=== PATIENT | female | born 1935 | race Caucasian/White ===

== ENCOUNTER → 2018-06-04 14:10 | Outpatient (CLI) | payer MEDICARE, OTHER, SELFPAY ==
--- NOTE | 2018-06-04 14:11 | DI.MG.S_ITS ---
BILATERAL DIGITAL SCREENING MAMMOGRAM 3D/2D WITH CAD: 06/04/2018 CLINICAL: Routine screening. Personal history of breast cancer. Family history of breast cancer. Comparison is made to exams dated: 07/19/2017 mammogram - [facility], 04/25/2017 mammogram, and 04/25/2016 mammogram - [facility]. There are scattered fibroglandular elements in both breasts. Current study was also evaluated with a Computer Aided Detection (CAD) system. No significant masses, calcifications, or other findings are seen in either breast. There has been no significant interval change. IMPRESSION: NEGATIVE There is no mammographic evidence of malignancy. A 1 year screening mammogram is recommended. This exam was interpreted at Station ID: [id number]. NOTE: For mammograms, a report in lay terms will be sent to the patient. Approximately 15% of breast malignancies will not be visualized mammographically. In the management of a palpable breast mass, a negative mammogram must not discourage biopsy of a clinically suspicious lesion. Electronically Signed By: Godwin flores/minh:06/04/2018 17:07:32 copy to: Felecia Sesay letter sent: Normal Exam ACR BI-RADS Category 1: Negative 3341F
== END ==
PROVIDERS: Family Provider Family Medicine; PCP Family Medicine; Visit Provider Family Medicine
DX: Z12.31 Encounter for screening mammogram for malignant neoplasm of breast (principal); Z85.3 Personal history of malignant neoplasm of breast; Z80.3 Family history of malignant neoplasm of breast
CPT/HCPCS: 77063; 77067

== ENCOUNTER → 2018-07-27 12:39 | Outpatient (CLI) | payer MEDICARE, OTHER, SELFPAY ==
--- NOTE | 2018-07-27 | DI.CT.S_ITS ---
PROCEDURE: CT UE LT WO CON INDICATIONS: LEFT SHOULDER PAIN/MATCH POINT PROTOCOL TECHNIQUE: Noncontrast 1-1.5 mm thick sections acquired from the acromioclavicular joint to the inferior scapula, with coronal and sagittal reformatting. COMPARISON: None. FINDINGS: Image quality: Excellent. Bones: Severe glenohumeral joint osteoarthritis is to be with incomplete soft joint space, extensive subchondral sclerosis and cyst formation, as well as prominent inferior marginal osteophyte formation. Moderate acromioclavicular joint osteoarthritis is also seen. There is no shoulder fracture or dislocation. No suspicious bony lesions. The visualized left ribs are grossly intact. Soft tissues: There is no suspicious soft tissue lesion. No gross full-thickness rotator cuff tendon rupture. Small glenohumeral joint effusion is seen. Visualized left lung field is clear. 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 No fracture or dislocation. No suspicious bony lesion or soft tissue lesion. Small joint effusion. No gross full-thickness rotator cuff tendon rupture. Dictated by: Tree Gibbs M.D. on 07/27/2018 at 13:39 Approved by: Tree Gibbs M.D. on 07/27/2018 at 13:42
--- NOTE | 2018-07-27 15:26 | DI.RAD.S_ITS ---
PROCEDURE: XR CHEST 2V INDICATIONS: Wheezing TECHNIQUE: 2 views of the chest were acquired. COMPARISON: [facility], , CHEST 2 VIEW, 04/13/2016, 11:34. FINDINGS: Surgical changes and devices: None. Lungs and pleura: No pleural effusions or pneumothorax. Streaky retrocardiac and bibasilar atelectasis/scarring. No acute consolidation Mediastinum: Mediastinal contours are normal. Heart size is normal. Bones and chest wall: No suspicious bony abnormalities. Lateral curvature of the spine Soft tissues appear unremarkable. IMPRESSION: No acute disease. Bibasilar streaky retrocardiac atelectasis versus scarring. Dictated by: Sea Guardado M.D. on 07/27/2018 at 16:07 Approved by: Sea Guardado M.D. on 07/27/2018 at 16:09
== END ==
PROVIDERS: Family Provider Family Medicine; Visit Provider Orthopaedic Surgery
DX: M25.512 Pain in left shoulder (principal); R06.2 Wheezing; R06.02 Shortness of breath; M19.011 Primary osteoarthritis, right shoulder; M25.412 Effusion, left shoulder
CPT/HCPCS: 71046; 73200

== ENCOUNTER → 2018-08-07 11:47 | Outpatient (CLI) | payer MEDICARE, OTHER, SELFPAY ==
[2018-08-07 12:13] LABS: Add Manual Diff / Slide Review NO; Basophils Percent Auto 0.7 % (0-2); Eosinophils Percent Auto 3.4 % (2-4); Hematocrit 40.6 % (36-46); Hemoglobin 13.9 g/dL (12.0-16.0); Lymphocytes Percent Auto 11.2 % (25-40); Mean Corpuscular HGB Conc 34.2 % (30-36); Mean Corpuscular Hemoglobin 28.9 PG (26-34); Mean Corpuscular Volume 84.6 fL (80-100); Neutrophils Absolute Auto 7600 /uL (3000-5900); Neutrophils Percent Auto 76.7 % (50-75); Platelet Count 299 X10^3/uL (150-400); Red Cell Distribution Width 13.6 % (11.6-14.8); White Blood Cell Count 9.9 X10^3/uL (4.5-11.0)
[2018-08-07 12:53] LABS: Alanine Aminotransferase 42 IU/L (9-52); Albumin 4.5 g/dL (3.5-5.0); Albumin Globulin Ratio 1.7 (1.0-2.8); Alkaline Phosphatase 63 U/L (38-126); Aspartate Aminotransferase 28 IU/L (14-36); BUN Creatinine Ratio 18.6 (6-22); Bilirubin Total 0.7 mg/dL (0.2-1.3); Blood Urea Nitrogen 13 mg/dL (7-17); Calcium 9.7 mg/dL (8.4-10.2); Carbon Dioxide 28 mmol/L (22-32); Chloride 99 mmol/L (98-107); Cholesterol 190 mg/dL (140-199); Estimated Glomerular Filt Rate > 60.0 mL/min (>60); Globulin 2.6 g/dL (1.7-4.1); Glucose 95 mg/dL (80-110); HDL Cholesterol 64 mg/dL (40-60); HEMOLYSIS 26 (0-50); LDL Cholesterol Calculated 97 mg/dL (<100); Potassium 4.5 mmol/L (3.4-5.1); Sodium 139 mmol/L (137-145); Total Protein 7.1 g/dL (6.3-8.2); Triglycerides 146 mg/dL (35-150)
[2018-08-13 16:26] LABS: TSH w/ Reflex to FT4 2.79 uIU/mL (0.47-4.68)
== END ==
PROVIDERS: PCP Family Medicine; Visit Provider Family Medicine
DX: Z79.899 Other long term (current) drug therapy (principal)
CPT/HCPCS: 36415; 80053; 80061; 84443; 85025

== ENCOUNTER → 2018-08-10 13:16 | Outpatient (CLI) | payer MEDICARE, OTHER, SELFPAY ==
--- NOTE | 2018-08-10 13:19 | DI.RAD.S_ITS ---
PROCEDURE: XR CHEST 2V INDICATIONS: Cough TECHNIQUE: 2 views of the chest were acquired. COMPARISON: [facility], CR, XR CHEST 2V, 07/27/2018, 15:04. FINDINGS: Surgical changes and devices: None. Lungs and pleura: No pleural effusions or pneumothorax. Lungs are clear. Mediastinum: Mediastinal contours are normal. Heart size is normal. Bones and chest wall: No suspicious bony abnormalities. Soft tissues appear unremarkable. IMPRESSION: No acute cardiopulmonary pathology. Dictated by: Tree Gibbs M.D. on 08/10/2018 at 13:51 Approved by: Tree Gibbs M.D. on 08/10/2018 at 13:51
== END ==
PROVIDERS: PCP Family Medicine; Visit Provider Physician Assistant
DX: Z01.818 Encounter for other preprocedural examination (principal); R05 Cough
CPT/HCPCS: 71046; 93005

== ENCOUNTER → 2019-01-03 14:20 | Outpatient (CLI) | payer MEDICARE, OTHER, SELFPAY ==
--- NOTE | 2019-01-06 12:49 | PM.PFT.1 ---
Pulmonary Function Test Referral & Results Date Patient Seen: 01/03/19 Requesting provider: Kaitlin Weiss Indication: Bronchitis Results: The spirometry demonstrates an FVC of 2.22 L which is 75% of predicted. The FEV1 was measured at 1.68 L which is 76% of predicted. The FEV1/FVC ratio was 76 which is 102% of predicted. Following the administration of bronchodilator there was no appreciable change. Lung volumes show an SVC of 2.61 L which is 88% of predicted. The diffusing capacity was measured at 23.32 which is 81% of predicted. No hemoglobin value was provided, so no correction for potential anemia could be made, if appropriate. The maximum voluntary ventilation was reduced Interpretation: This study demonstrates mild obstructive lung disease based on reduction FEV1 without evidence of benefit following bronchodilator There is minimal reduction lung volumes and probably minimal reduction in diffusing capacity Compared to PFTs performed in June 2016, FEV1 has declined while diffusing capacity actually improved lung volumes are essentially unchanged Clinical correlation suggested
== END ==
PROVIDERS: PCP Family Medicine; Visit Provider Family Medicine
DX: J40 Bronchitis, not specified as acute or chronic (principal)
CPT/HCPCS: 94060; 94726; 94729

== ENCOUNTER → 2019-04-15 13:30 | Outpatient (CLI) | payer MEDICARE, OTHER, SELFPAY ==
--- NOTE | 2019-04-15 13:32 | DI.NM.S_ITS ---
PROCEDURE: NM KEENAN PERF SPECT R&S PHARM Rest and pharmacological stress myocardial perfusion SPECT with gated imaging and ejection fraction RADIOPHARMACEUTICAL: 25.4 mCi Tc-99m tetrafosmin IV at rest and 26.6 mCi Tc-99m tetrafosmin IV at peak effect of pharmacological stress. Oml-oye-auidlytb was performed. INDICATIONS: shortness of breath TECHNIQUE: Radiopharmaceutical was injected at peak stress test, and also at rest. SPECT images were obtained. SPECT myocardial perfusion images were displayed in short axis, horizontal long axis, and vertical long axis views. Gated images were reviewed using [employer] software. COMPARISON: None. CARDIAC STRESS: A pharmacologic stress test was performed under the supervision of an attending staff, using an infusion of lexiscan 0.4mg IV X1. Hemodynamic data: There is normal blood pressure and heart rate response to pharmacologic stress. Symptoms: The patient denied anginal chest pain. Aminophylline: none EKG: No diagnostic changes of ischemia; no ectopy. FINDINGS: Raw data: There is good myocardial uptake of radiotracer. No significant motion artifacts. Jmnj-st-fkdkw ratio is 0.3 (normal is less than 0.38 for tetrafosmin tracer). Left ventricle function: Gated images demonstrate normal left ventricular wall thickening. No segmental wall motion abnormalities. No transient ischemic dilation; TID is 0.94 (normal less than 1.3). Left ventricle resting end diastolic volume is 76 mL. Left ventricle stress ejection fraction is 86%; normal range is above 45%. Myocardial perfusion: There is a mild-moderate small apical defect at rest that improves significant with stress, suggesting apical thinning artifact than true ischemia or infarct. No prone images obtained due to the patient's physical limitations. IMPRESSION: Low risk, probably normal nuclear stress test. 1) Probably normal perfusion images. There is a mild-moderate small apical defect at rest that improves significant with stress, suggesting apical thinning artifact than true ischemia or infarct. 2) Normal left ventricular size, wall motion, and systolic function (EF post stress is 86%). 3) No ECG evidence of ischemia. 4) No angina during the study. 5) No prior nuclear stress test available for comparison. Dictated by: Harshil Lux MD on 04/16/2019 at 12:44 Approved by: Harshil Lux MD on 04/16/2019 at 12:47
--- NOTE | 2019-04-15 15:03 | P.PCN_ITS ---
Cardiac Stress Test Report Referral & Results Date Patient Seen: 04/15/19 Requesting provider: Kaitlin Weiss Indication: Shortness of breath Rest ECG: Unremarkable Procedure Note: After both written and verbal informed consent the patient had an IV started by the diagnostic imaging RN and then was hooked up to the treadmill monitoring system. The patient was placed on the treadmill at 1 mile an hour with no elevation and was then injected with the Stella scan material. The Cardiolite was then immediately administered. The patient spent an additional 2-3 minutes on the treadmill before being returned to the [facility] in the supine position. The patient had a normal response to all infused materials. Impression: Normal response to infuse materials Please see perfusion imaging for details regarding possible ischemia Please note: Actual ECG tracings can be found in the PACS system.
== END ==
PROVIDERS: PCP Family Medicine; Visit Provider Family Medicine
DX: R06.02 Shortness of breath (principal)
CPT/HCPCS: 78452; 93016; 93017; 93018; A9502; J2785

== ENCOUNTER → 2019-06-21 14:41 | Outpatient (CLI) | payer MEDICARE, OTHER, SELFPAY ==
--- NOTE | 2019-06-21 14:43 | DI.MG.S_ITS ---
BILATERAL DIGITAL SCREENING MAMMOGRAM 3D/2D WITH CAD: 06/21/2019 CLINICAL: Routine screening. Comparison is made to exams dated: 06/04/2018 mammogram, 07/24/2017 ultrasound, 07/19/2017 mammogram - [facility], 04/25/2017 mammogram, 04/25/2016 mammogram, and 04/22/2015 mammogram - [facility]. There are scattered fibroglandular elements in both breasts. Current study was also evaluated with a Computer Aided Detection (CAD) system. No significant masses, calcifications, or other findings are seen in either breast. There has been no significant interval change. IMPRESSION: NEGATIVE There is no mammographic evidence of malignancy. A 1 year screening mammogram is recommended. This exam was interpreted at Station ID: [id number]. NOTE: For mammograms, a report in lay terms will be sent to the patient. Approximately 15% of breast malignancies will not be visualized mammographically. In the management of a palpable breast mass, a negative mammogram must not discourage biopsy of a clinically suspicious lesion. Electronically Signed By: Doc mon/minh:06/21/2019 15:35:24 copy to: Felecia eSsay letter sent: Normal Exam ACR BI-RADS Category 1: Negative 3341F
== END ==
PROVIDERS: PCP Family Medicine; Visit Provider Family Medicine
DX: Z12.31 Encounter for screening mammogram for malignant neoplasm of breast (principal)
CPT/HCPCS: 77063; 77067

== ENCOUNTER → 2019-08-02 11:50 | Outpatient (CLI) | payer MEDICARE, OTHER, SELFPAY ==
[2019-08-02 12:52] LABS: BUN Creatinine Ratio 22.9 (6-22); Blood Urea Nitrogen 16 mg/dL (7-17); Calcium 9.9 mg/dL (8.4-10.2); Carbon Dioxide 29 mmol/L (22-32); Chloride 99 mmol/L (98-107); Estimated Glomerular Filt Rate > 60.0 mL/min (>60); Glucose 97 mg/dL (80-110); HEMOLYSIS < 15 (0-50); Potassium 4.5 mmol/L (3.4-5.1); Sodium 138 mmol/L (137-145)
== END ==
PROVIDERS: PCP Family Medicine; Visit Provider Family Medicine
DX: G89.29 Other chronic pain (principal); M25.512 Pain in left shoulder; Z79.899 Other long term (current) drug therapy
CPT/HCPCS: 36415; 80048

== ENCOUNTER → 2019-08-14 16:14 | Outpatient (CLI) | payer MEDICARE, OTHER, SELFPAY ==
[2019-08-16 14:20] LABS: Fecal Immunochemical Test DETECTED (NOT DETECTED)
== END ==
PROVIDERS: PCP Family Medicine; Visit Provider Family Medicine
DX: Z12.11 Encounter for screening for malignant neoplasm of colon (principal)
CPT/HCPCS: 82274

== ENCOUNTER → 2019-12-04 09:49 | Outpatient (CLI) | payer MEDICARE, OTHER, SELFPAY ==
--- NOTE | 2019-12-04 09:51 | DI.RAD.S_ITS ---
PROCEDURE: FL BARIUM SWALLOW W SPEECH INDICATIONS: Trouble Swallowing TECHNIQUE: Examination was conducted in conjunction with speech pathology per standard protocol. In the lateral projection, filming was performed of the patient swallowing. AP projection filming may also be performed with patient swallowing. COMPARISON: [facility], , BARIUM SWALLOW, 07/07/2015, 13:04. FINDINGS: Function: The oral preparatory phase appears normal, with proper containment. The subsequent oral propulsive phase, pharyngeal phase, and esophageal phase of swallowing also appear normal with all proffered substances. No laryngotracheal penetration or aspiration. No pathologic vallecular pooling. Morphology: No cricopharyngeal bar is identified. No cervical esophageal webs. No Zenker's diverticulum. No strictures. IMPRESSION: Normal examination. There is also referred to dedicated speech therapy swallowing evaluation report of that will be independently generated. Dictated by: Gualberto Souza M.D. on 12/04/2019 at 12:00 Approved by: Gualberto Souza M.D. on 12/04/2019 at 12:01
--- NOTE | 2019-12-04 14:15 | ST.SWALLOW ---
Visit Care Team Role Provider Type Kaitlin Weiss DO Attending Provider Physician Primary Care Provider Specialty: Family Practice Address: [address] [place] [address], [address], [address] Email: [email or web address] Modified Barium Swallow Study [employer] Modified Barium Swallow Study Start: 12/04/19 12:49 Freq: Status: Active Protocol: Document 12/04/19 12:49 TLC (Rec: 12/04/19 12:55 TLC [id number]) Modified Barium Swallow Study Total Time Visit Start Time 10:30 Visit Stop Time 10:45 Total Visit Minutes [address] Kaitlin Weiss Reason for Referral Dysphagia Setting Setting Outpatient Care Patient Information Identification Type Name Patient History Patient complains of difficulty swallowing dry, solid foods. She denies coughing or choking and reports she does not have problems with liquids. She had a barium swallow in 2014 which revealed borderline stricture GE junction and small hiatal and hernia and B. ring as well as free gastroesophageal reflux to the level of the aortic arch in the supine position. Patient currently takes Prednisone for GERD. Subjective Observations Patient arrived on time and was alert, oriented and cooperative during the study. Patient Positioning Position View Lateral Imaging Lateral View Textures Administered Trials Presented Thin Liquid via Spoon,Thin Liquid via Cup,[place] Liquid via Spoon,[place] Liquid via Cup,Honey Liquid via Spoon, Dysphagia Blenderized Textures ,Regular Textures Oral Phase Source: MBSIMP (TM) (C) Bolus Specific Scoring Grid Lip Closure No Impairment (WNL) Tongue Control During Bolus Hold No Impairment (WNL) Bolus Prep/Mastication No Impairment (WNL) Bolus Transport/Lingual Motion No Impairment (WNL) Additional Oral Phase Observations No significant oral phase impairments observed. Pharyngeal swallow initiation occured at the level of the vallecula. Pharyngeal Phase Source: MBSIMP (TM) (C) Bolus Specific Scoring Grid Soft Palate Elevation No Impairment (WNL) Tongue Base Strength/Range of Motion Minimal Impairment Laryngeal Elevation No Impairment (WNL) Anterior Hyoid Movement No Impairment (WNL) Epiglottic Range of Motion Moderate Impairment Vallecular Residue Yes Laryngeal Vestibular Closure No Impairment (WNL) Pharyngeal Stripping Wave No Impairment (WNL) Upper Esophageal Sphincter Opening Mild Impairment Residue in the Pyriform Sinuses Yes Additional Pharyngeal Phase Observations Observed incomplete epiglottic inversion and partial obstruction of bolus flow during pharyngoesophageal segment opening. Laryngeal elevation, anterior hyoid excursion and laryngeal vestibular closure were complete without penetration or aspiration of any trials observed during the study - score of 1 on the Penetration Aspiration Scale. A collection of residue in the vallecula and trace residue in the pyriform sinuses and pharyngeal wall improved with additional swallows. A/P View Esophageal Observations Esophageal Function Limited view during this study . Refer to results from barium swallow completed in 2015 listed in patient history at beginning of report. Clinical Impressions Dysphagia Type Mild pharyngeal Findings Patient presents with mild pharyngeal phase dysphagia characterized by incomplete epiglottic inversion and vallecular residue. Per previous barium study completed in 2015, patient additionally presents with significant esophageal impairments of swallowing. She would benefit from outpatient speech therapy for patient education and dysphagia treatment including strategies for compensation and strengthening exercises for improved epiglottic inversion. Rehabilitation Potential Good Patient Appropriate for Therapy Yes Recommendations Diet Liquids Order Thin Diet Order Regular Medication Recommendation As Tolerated Treatment Plan Additional Therapy Recommendations Rose, Effortful, Shaker/ CTAR for improved epiglottic inversion Compensatory Strategies Recommendations Sitting Upright (90 deg), Double Swallow,Small Bites and Sips,Alternate Liquids/Solids Additional Compensatory Strategies Frequent rest breaks for Recommended esophageal clearance, GERD precautions Placement Recommendation After Discharge Home
== END ==
PROVIDERS: PCP Family Medicine; Visit Provider Family Medicine
DX: R13.10 Dysphagia, unspecified (principal); J40 Bronchitis, not specified as acute or chronic
CPT/HCPCS: 74230; 92611

== ENCOUNTER 2020-01-23 11:30 | Outpatient (RCR) | payer MEDICARE, OTHER, SELFPAY ==
[2019-12-10 14:06] VITALS: BP 124/64; BP 130/62; RESP 16; O2SAT 93; BMI 31.3
--- NOTE | 2019-12-10 14:36 | PR.IEVALNOTE ---
Current Diagnoses Chronic obstructive pulmonary disease, unspecified (12/10/19) Dysphagia, unspecified (12/10/19) Past Medical History (Last Updated 08/17/19 @ 18:55 by Kaitlin Weiss DO) Ankle pain, left (Chronic 2009) Anxiety (Chronic) Bipolar disorder (Suspected) Cataract (Resolved 03/2014) Chicken pox (Resolved) Chronic left shoulder pain (Chronic 12/25/17) Chronic lumbar radiculopathy (Chronic 08/26/14) Episodic mood disorder (Chronic 09/05/17) Essential tremor (Chronic 05/19/15) Foot pain, left (Chronic 2009) GERD (gastroesophageal reflux disease) (Chronic) Hyperlipidemia (Chronic) Hypothyroidism (Chronic) Lumbar spinal stenosis (Chronic) Mumps (Resolved 1966) 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 Hearing Ability Normal Visual Impairment No Limitations Visual Difficutly None Visual Assist None Body Alignment Posture Forward Head,Rigid Assistive Devices None History of Falling (Immediate or No Previous) Secondary Diagnosis (More Than 2 Medical Yes Diagnoses) Ambulatory Aid None/bed rest/nurse assist Gait/Transfer Normal/bedrest/immobile Mental Status Oriented to own ability Comment Patient denies barriers, and states she feels she can exercise independently once she becomes comfortable with exercise through participation in pulmonary rehabilitation Comment none [place] Vital Signs Pulse Oximetry (91-100 %) 93 Nasal Cannula No Respiratory Rate (12-24 breaths/min) 16 Respiratory Effort Non-Labored Respiratory Depth Normal Respiratory Pattern Accessory Muscle Use Assessment clear to auscultation no wheeze or rhonchi audible upper respiratory wheezes with exertion Right Arm Blood Pressure (90/60-140/90 mmHg) 124/64 Blood Pressure Method Manual Cuff/Auscultation Blood Pressure Position Sitting Left Arm Blood Pressure (90/60-140/90 mmHg) 130/62 Blood Pressure Method Manual Cuff/Auscultation Blood Pressure Position Sitting [place] Six Minute Walk Test Oxygen Delivery Method Room Air Respiratory Rate (breaths/min) 16 Pulse Rate (beats/min) 92 O2 Saturation by Pulse Oximetry (%) 92 Pulse Rate (beats/min) 108 Ambulation Distance (feet) 200 O2 Saturation by Pulse Oximetry (%) 91 Respiratory Rate (breaths/min) 18 Pulse Rate (beats/min) 107 Ambulation Distance (feet) 100 O2 Saturation by Pulse Oximetry (%) 93 Respiratory Rate (breaths/min) 20 Pulse Rate (beats/min) 110 Ambulatory Distance (feet) 150 O2 Saturation by Pulse Oximetry (%) 93 Respiratory Rate (breaths/min) 24 Pulse Rate (beats/min) 110 Ambulation Distance (feet) 100 O2 Saturation by Pulse Oximetry (%) 94 Respiratory Rate (breaths/min) 24 PUlse Rate (beats/min) 118 Ambulation Distance (feet) 100 O2 Saturation by Pulse Oximetry (%) 94 Respiratory Rate (breaths/min) 16 Pulse Rate (beats/min) 92 O2 Saturation by Pulse Oximetry (%) 98 Activity Tolerance Poor Adverse Reactions Increased Shortness of Breath, Intolerant Dyspnea Distance 800 Reid RPE Scale 13 Oriented to RPE Scale Yes Dyspnea 4 Oriented to Dyspnea Scale Yes Comment patient required frequent stops for recovery [place] Exercise Goals Exercise Goals Progression of exercise training volume will result from increases in time, frequency and intensity. Initial emphasis will be on increeasing time. DASI Number and Comment 4.64 mets [place] Pulmonary Rehab Orientation Complete Complete Yes [place] Nutrition Assessment PFT Date 12/04/19 Forced Vital Capacity (FVC) 1.81 61% Forced Exp. Volume/Forced Vital Cap 80 108% Ratio (FEV1/FVC Ratio) Forced Expiratory Volume in 1 sec. 1.45 66% Diffusing Capacity of the Lung (DLCO) 81 History of Diabetes No Admit Height 170.18 cm Admit Weight 90.718 kg Admit Body Mass Index (BMI) 31.3 [place] Education Pre-Test Score 65% Tobacco Use N/A Use Yes Type cassia Amount 1 Frequency weekly Concerns None Education Topics Breathing Retraining Discussed Education Requirements on Yes Intake [place] Psychosocial Initial Assess HADS Score 1 HADS Score 0 Marital Status Additional Comment Barium swallow test 12/04/2019 Referral Needed No Physician Comment Ready for Pulmonary Rehabilitation Cooperative,Motivated
--- NOTE | 2020-01-08 15:40 | PR.REVALNOTE ---
Current Diagnoses Chronic obstructive pulmonary disease, unspecified (01/08/20) Dysphagia, unspecified (01/08/20) Past Medical History (Last Updated 08/17/19 @ 18:55 by Kaitlin Weiss DO) Ankle pain, left (Chronic 2009) Anxiety (Chronic) Bipolar disorder (Suspected) Cataract (Resolved 03/2014) Chicken pox (Resolved) Chronic left shoulder pain (Chronic 12/25/17) Chronic lumbar radiculopathy (Chronic 08/26/14) Episodic mood disorder (Chronic 09/05/17) Essential tremor (Chronic 05/19/15) Foot pain, left (Chronic 2009) GERD (gastroesophageal reflux disease) (Chronic) Hyperlipidemia (Chronic) Hypothyroidism (Chronic) Lumbar spinal stenosis (Chronic) Mumps (Resolved 1966) 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 Re-Assessment Start: 12/10/19 13:51 Freq: Status: Active Protocol: Document 01/08/20 15:24 JOHN (Rec: 01/08/20 15:40 Ferny [id number]) [place] Exercise Re-Assessment New Session Number 2-13 Type Treadmill,BioDex METs (resistance level) TM2.72 STRDR3.8 NS2.61 % Improvement STRDR58% NS 10% Interval Training Yes: 3.01 NS Shortness of Breath with Exercise Yes Desaturation with Exercise No Toward Target Goals Pt has increased time on Treadmill to 10min 66% improvement, will continue to emphasize increasing time [place] Nutrition Re-Assessment Progress to Weight Goal No Attempts to Re-Motivate Toward Goal Yes Diabetes/Dietitian N/A Diabetes Consult Patient Discussion Yes Goals Pt will continue focusing on weight loss,Pt will continue to learn tips [place] Education Re-Assessment Topics Breathing Retraining,Benefits of Exercise,Eating Right Goals Pt will Master PLB and Diaphragmatic Breathing,Pt will Master Energy Conserving Techniques,Pt will learn exercise safety,Pt will continue ED topics until completion [place] Psychosocial Re-Assessment Patient in Class Regularly Yes Interventions Pt attending class regularly Goals Pt will continue to attend classes 3x wk,Participate in social and educational discussion,Received emotional support from family/friends
== END 2020-01-23 12:30 ==
LOC: PUL 11:30
PROVIDERS: PCP Family Medicine; Visit Provider Family Medicine
DX: J44.9 Chronic obstructive pulmonary disease, unspecified (principal); R13.10 Dysphagia, unspecified
CPT/HCPCS: G0424

== ENCOUNTER → 2020-05-04 10:58 | Outpatient (CLI) | payer MEDICARE, OTHER, SELFPAY ==
[2019-12-10 14:06] VITALS: BMI 31.3
--- NOTE | 2020-05-04 10:59 | DI.RAD.S_ITS ---
PROCEDURE: XR RIBS LT 2V INDICATIONS: left lower rib pain TECHNIQUE: 2 views of the left ribs were acquired. COMPARISON: None. FINDINGS: Surgical changes and devices: None. Bones and chest wall: No fractures or dislocations. No suspicious bony lesions. Overlying soft tissues appear unremarkable. Lateral curvature of the spine. No definite rib fracture identified Lungs and pleura: The visualized lung appears clear. No pleural effusions or pneumothorax are visible. IMPRESSION: No radiographically visible rib fracture Dictated by: Sea Guardado M.D. on 05/04/2020 at 13:13 Approved by: Sea Guardado M.D. on 05/04/2020 at 13:14
== END ==
PROVIDERS: PCP Family Medicine; Referring Provider Family Medicine; Visit Provider Family Medicine
DX: R07.81 Pleurodynia (principal)
CPT/HCPCS: 71100

== ENCOUNTER → 2020-06-22 09:55 | Outpatient (CLI) | payer MEDICARE, OTHER, SELFPAY ==
[2019-12-10 14:06] VITALS: BMI 31.3
--- NOTE | 2020-06-22 09:56 | DI.MG.S_ITS ---
BILATERAL DIGITAL SCREENING MAMMOGRAM 3D/2D WITH CAD: 06/22/2020 CLINICAL: Routine screening. Comparison is made to exams dated: 06/21/2019 mammogram, 06/04/2018 mammogram, and 07/19/2017 mammogram - [facility]. There are scattered fibroglandular elements in both breasts. Current study was also evaluated with a Computer Aided Detection (CAD) system. No significant masses, calcifications, or other findings are seen in either breast. There has been no significant interval change. IMPRESSION: NEGATIVE There is no mammographic evidence of malignancy. A 1 year screening mammogram is recommended. This exam was interpreted at Station ID: [id number]. NOTE: For mammograms, a report in lay terms will be sent to the patient. Approximately 15% of breast malignancies will not be visualized mammographically. In the management of a palpable breast mass, a negative mammogram must not discourage biopsy of a clinically suspicious lesion. Electronically Signed By: Werner mares/minh:06/22/2020 13:00:30 letter sent: Normal Exam ACR BI-RADS Category 1: Negative [id number]
[2020-06-22 11:03] LABS: Add Manual Diff / Slide Review NO; Basophils Absolute Auto 0 /uL (0-100); Basophils Percent Auto 0.6 % (0-2); Eosinophils Absolute Auto 200 /uL (0-450); Eosinophils Percent Auto 2.9 % (2-4); Hematocrit 40.6 % (36-46); Hemoglobin 13.6 g/dL (12.0-16.0); Lymphocytes Absolute Auto 1400 /uL (1100-4500); Mean Corpuscular HGB Conc 33.5 % (30-36); Mean Corpuscular Hemoglobin 29.4 PG (26-34); Mean Corpuscular Volume 87.6 fL (80-100); Monocytes Absolute Auto 600 /uL (0-900); Monocytes Percent Auto 9.4 % (3-14); Neutrophils Absolute Auto 4000 /uL (1500-7000); Neutrophils Percent Auto 64.1 % (50-75); Platelet Count 247 X10^3/uL (150-400); Red Blood Cell Count 4.63 X10^6/uL (4.0-5.2); Red Cell Distribution Width 13.3 % (11.6-14.8); White Blood Cell Count 6.2 X10^3/uL (4.5-11.0)
[2020-06-22 11:12] LABS: Hemoglobin A1C% w Est Avg Glu 5.9 % (4.0-6.0)
[2020-06-22 11:19] LABS: Alanine Aminotransferase 34 IU/L (<35); Albumin 4.5 g/dL (3.5-5.0); Albumin Globulin Ratio 1.7 (1.0-2.8); Alkaline Phosphatase 71 U/L (38-126); Aspartate Aminotransferase 34 IU/L (14-36); BUN Creatinine Ratio 24.3 (6-22); Bilirubin Total 0.4 mg/dL (0.2-1.3); Blood Urea Nitrogen 17 mg/dL (7-17); Calcium 9.9 mg/dL (8.4-10.2); Carbon Dioxide 31 mmol/L (22-32); Chloride 102 mmol/L (98-107); Cholesterol 186 mg/dL (140-199); Estimated Glomerular Filt Rate > 60.0 mL/min (>60); Globulin 2.7 g/dL (1.7-4.1); Glucose 111 mg/dL (80-110); HDL Cholesterol 55 mg/dL (40-60); HEMOLYSIS < 15 (0-50); LDL Cholesterol Calculated 87 mg/dL (<100); Potassium 4.3 mmol/L (3.4-5.1); Sodium 138 mmol/L (137-145); Total Protein 7.2 g/dL (6.3-8.2); Triglycerides 220 mg/dL (35-150)
[2020-06-22 11:48] LABS: TSH w/ Reflex to FT4 2.76 uIU/mL (0.47-4.68)
[2020-06-23 07:36] LABS: Homocysteine 10.5 umol/L (0.0-21.3)
[2020-06-24 20:36] LABS: Methylmalonic Acid,Serum 172 nmol/L (0-378)
== END ==
PROVIDERS: PCP Family Medicine; Referring Provider Family Medicine; Visit Provider Family Medicine
DX: Z12.31 Encounter for screening mammogram for malignant neoplasm of breast (principal); E78.5 Hyperlipidemia, unspecified; E66.9 Obesity, unspecified; G25.0 Essential tremor; G62.9 Polyneuropathy, unspecified
CPT/HCPCS: 36415; 77063; 77067; 80053; 80061; 83036; 83090; 83921; 84443; 85025

== ENCOUNTER → 2020-08-06 11:11 | Outpatient (CLI) | payer MEDICARE, OTHER, SELFPAY ==
[2019-12-10 14:06] VITALS: BMI 31.3
--- NOTE | 2020-08-06 11:11 | DI.CT.S_ITS ---
PROCEDURE: CT CHEST WO CON INDICATIONS: shortness of breath TECHNIQUE: Noncontrast 5 mm thick sections acquired from the pulmonary apices to the posterior costophrenic angles. 1 mm lung window, 5 mm thick coronal and sagittal and 7 mm axial MIP reformats were then acquired. For radiation dose reduction, the following was used: automated exposure control, adjustment of mA and/or kV according to patient size. COMPARISON: [facility], CT, ABDOMEN/PELVIS WITH CONTRAST, 10/14/2015, 11:08. FINDINGS: Image quality: Excellent. Lungs and pleura: No acute airspace opacities. There is a 4 mm pulmonary nodule in the right middle lobe (series 3/image 204). Mediastinum: Heart size is normal. No pericardial effusion. Trace atheromatous calcifications are present within the coronary arteries. No mediastinal adenopathy by size criteria. Thoracic aorta and central pulmonary arteries are normal in size. Trace atheromatous calcifications are present at the thoracic arch. Esophagus is normal in caliber. No hiatal hernia. Bones and chest wall: No suspicious bony lesions. No vertebral body compression fractures. No axillary or supraclavicular adenopathy by size criteria. Thyroid gland is unremarkable . Abdomen: The liver is diffusely hypodense. A low-density cystic lesion is present within the left hepatic lobe unchanged from the study from 2015. Visualized upper abdominal solid organs and bowel loops appear normal in the absence of contrast. IMPRESSION: 1. 4 mm right middle lobe pulmonary nodule. Please see follow-up guidelines below. In a high-risk patient, 12 month follow-up recommended. 2. No acute airspace opacities or findings to explain patient's shortness of breath. 3. Mild atheromatous calcifications of the aorta and coronary arteries. Fleischner Society criteria for SOLID lung nodule followup. Nodule size (mm)Low-risk patientHigh-risk patient<6 (single or multiple)No routine followup.Optional CT at 12 months. 6-8 (single or multiple)CT at 6-12 months, then optional CT at 18-24 mo.CT at 6-12 months, then CT at 18-24 months. >8 (single)CT at 3 months, PET-CT, or biopsy. Same as for low-risk pts. >8 (multiple)CT at 3-6 months, then optional CT at 18-24 mo.CT at 3-6 months, then CT at 18-24 months. Fleischner Society criteria for SUB-SOLID lung nodule followup. Solitary pure ground-glass nodules<6 mm (ground glass or part solid)No followup needed. 6 mm or larger (ground glass)CT at 6-12 months to confirm persistence, then CT every 2 years until 5 years.6 mm or larger (part solid)CT at 3-6 months to confirm persistence, then annual CT until 5 years if unchanged and solid component remains <6 mm. Multiple sub-solid nodules<6 mmCT at 3-6 months, then CT consider at 2 & 4 years for high risk patients. [address] at 3-6 months. Subsequent management based on most suspicious lesions. Recommendations do not apply to lung cancer screening, patients with immunosuppression, or patients with known primary cancer. Dictated by: Rosa M Zapata M.D. on 08/06/2020 at 12:36 Approved by: Rosa M Zapata M.D. on 08/06/2020 at 12:55
== END ==
PROVIDERS: PCP Family Medicine; Referring Provider Family Medicine; Visit Provider Family Medicine
DX: R06.02 Shortness of breath (principal); R91.1 Solitary pulmonary nodule; J44.9 Chronic obstructive pulmonary disease, unspecified; J98.4 Other disorders of lung; I25.10 Atherosclerotic heart disease of native coronary artery without angina pectoris
CPT/HCPCS: 71250

== ENCOUNTER → 2020-08-23 13:31 | Outpatient (CLI) | payer MEDICARE, OTHER, SELFPAY ==
[2019-12-10 14:06] VITALS: BMI 31.3
[2020-08-24 14:52] LABS: COVID19 Sendout Not Detected (Not Detect)
== END ==
PROVIDERS: PCP Family Medicine; Visit Provider Physician Assistant
DX: Z01.812 Encounter for preprocedural laboratory examination (principal)
CPT/HCPCS: 87635

== ENCOUNTER 2020-08-26 08:28 | Day surgery (SDC) | payer MEDICARE, OTHER, SELFPAY ==
[2019-12-10 14:06] VITALS: BMI 31.3
[2020-08-26] VITALS (8 sets, daily range): BP systolic 141–168; BP diastolic 77–97; PULSE 83–93; RESP 15–28; TEMP 36.3–36.8; O2SAT 90–97; BMI 38.4
[2020-08-26] MEDS: LACTATED RINGERS 1,000 ML 42 ML IV (09:06)
--- NOTE | 2020-08-26 09:26 | PM.HP.1 ---
History of Present Illness History of Present Illness Date Patient Seen: 08/26/20 Time Patient Seen: 09:26 Chief complaint: [facility] [place] Narrative: This is an 84-year-old woman with history of obesity, COPD, DUNHAM, GERD, left shoulder pain in need of surgery, and a positive stool test last year. Her primary care doctor has been encouraging her for some time to have a colonoscopy. She is now here to discuss her positive fit test and her need for colonoscopy. She last had a colonoscopy in 1998. She says it was normal. Since then she has not had any melena, unexplained abdominal pain, or unexplained weight loss. She occasionally has some blood on the toilet paper, but no significant hematochezia. She had upper endoscopy about 5 years ago here at [facility], and is on omeprazole for reflux. She has had recent weight gain, which she thinks is the cause of her shortness of breath. Her primary doctor has recommended pulmonology evaluation. She is not on any oxygen, and her oxygen saturation is 99% on room air in our office today. She does become winded easily, but is able to ambulate independently as long as she is able to stop to catch her breath every few minutes. Interval changes: She has completed her bowel prep and denies anything new medically since her last visit with me. ROS: Weight gain, reflux symptoms, shortness of breath, Thirteen system review is otherwise negative other than as mentioned below and in HPI. PE: GENERAL: Well groomed and cooperative. Appears stated age. Answers questions promptly and appropriately. Vital signs noted. HENT: Normocephalic, atraumatic. Hearing intact. EYES: Conjunctiva pink, sclera white, no periorbital swelling. CARDIOVASCULAR: Regular rate. No pedal edema. RESPIRATORY: Non-tachypneic, breathing comfortably at rest on room air. Some wheezing and dyspnea on exertion (ambulating throughout the office). GASTROINTESTINAL: Abdomen soft and non-distended; rounded, obese, nontender GENITALURINARY: No flank tenderness. MUSCULOSKELETAL: Equal tone and mass bilaterally. SKIN: Warm, dry, soft, appropriate color for ethnicity. No other lesions, rashes, or wounds. NEURO: Alert and Oriented X 3. No gross sensory deficits, or cognitive issues. PSYCH: Appropriate affect and mood. Patient History Medical History Ankle pain, left (Chronic 2009) Anxiety (Chronic) Bipolar disorder (Suspected) Cataract (Resolved 03/2014) Chicken pox (Resolved) Chronic left shoulder pain (Chronic 12/25/17) Chronic lumbar radiculopathy (Chronic 08/26/14) Dysphagia, pharyngeal phase (Acute) Episodic mood disorder (Chronic 09/05/17) Essential tremor (Chronic 05/19/15) Foot pain, left (Chronic 2009) GERD (gastroesophageal reflux disease) (Chronic) Hyperlipidemia (Chronic) Hypothyroidism (Chronic) Lumbar spinal stenosis (Chronic) Mumps (Resolved 1966) Pulmonary nodule less than 6 mm in diameter with low risk for malignant neoplasm (Acute) 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) Tinnitus (Chronic ~2014) Urge incontinence of urine (Chronic 05/14/15) Urinary incontinence (Chronic 2004) Surgical History Anesthesia (Resolved) H/O abdominal surgery (Resolved 03/2007) History of esophagogastroduodenoscopy (EGD) (Acute ~03/2016) History of hip replacement (Resolved 1996) History of hip replacement (Resolved 2001) History of partial knee replacement (Resolved 2003) History of partial knee replacement (Resolved 2007) History of vaginal surgery (Resolved) Status post hysterectomy with oophorectomy (Resolved 1969) Family & Social History Family History Father Heart disease Pulmonary embolism Grandmother Heart disease Heart attack Sister Cancer Melanoma Grandmother No problems noted. Mother Dementia Grandfather Pneumonia Grandfather Dementia Social History: household members none lives independently Yes Tobacco & Substance use: Smoking Status Never smoker alcohol intake current alcohol intake frequency holiday/special occasion Substance Use Type does not use Meds Home Medications and Allergies Home Medications Medication Instructions Recorded Confirmed Type aspirin 81 mg tablet,delayed 81 mg PO DAILY 04/03/18 08/26/20 History release cholecalciferol (vitamin D3) 50 2,000 unit PO BID cap 04/03/18 08/26/20 History mcg (2,000 unit) capsule albuterol sulfate 90 mcg/actuation 2 puff INHALATION Q6H PRN #18 gram 08/14/19 08/26/20 Rx aerosol inhaler lorazepam 1 mg tablet 1 mg PO BIDP PRN #30 tab 04/03/20 08/26/20 Rx omeprazole 20 mg capsule,delayed 20 mg PO QDAY #90 cap 04/03/20 08/26/20 Rx release sertraline 50 mg tablet 100 mg PO QDAY #180 tab 04/03/20 08/26/20 Rx simvastatin 40 mg tablet 40 mg PO Q DAY #90 tab 04/03/20 08/26/20 Rx tolterodine 4 mg capsule,extended 4 mg PO QDAY #90 cap 04/03/20 08/26/20 Rx release 24 hr olanzapine 2.5 mg tablet 2.5 mg PO HS #90 tab 05/08/20 08/26/20 Rx vitamins A,C,C-zeoj-qubsqk 2 tab PO BID 08/26/20 08/26/20 History [PreserVision AREDS] Allergies Allergy/AdvReac Type Severity Reaction Status Date / Time digoxin [DIGOXIN] Allergy Mild LIGHTHEADED Verified 07/31/20 09:31 latex [LATEX] Allergy Mild Verified 07/31/20 09:31 silver Allergy Mild BLISTERS Verified 07/31/20 09:31 (FROM TEGADERM MESH) Exam Vital Signs (past 8 hours): - 08/26/20 08:46 Temperature 98.2 F Pulse Rate 93 H Respiratory Rate 22 Blood Pressure 153/92 H Pulse Oximetry 95 Oxygen Delivery Method Room Air Assessment & Plan Assessment and plan (1) Positive occult stool blood test: Status: Acute (2) GERD (gastroesophageal reflux disease): Problem details: 03/2016 normal EGD after 06/2015 abnormal barium swallow Status: Chronic (3) COPD (chronic obstructive pulmonary disease): Status: Chronic (4) Obesity (BMI 30-39.9): Status: Chronic (5) Short of breath on exertion: Status: Chronic (6) Chronic left shoulder pain: Status: Chronic Assessment & Plan narrative: Risks and benefits of diagnostic colonoscopy and possible polypectomy were discussed with the patient including risk of bleeding, perforation, need for additional procedures, risks of anesthesia. The patient desires to proceed with the colonoscopy procedure. COVID-19 COVID-19 status: Negative Result date/Date tested (Pos, Neg/Pending): 08/23/20 Time Spent With Patient Time with patient: 15-24 minutes Quality VTE Deep Vein Thrombosis/Pulmonary Embolism Present on Admission: No
--- NOTE | 2020-08-26 10:34 | P.OP.ENDO_ITS ---
Operative Date/Time/Diagnoses Date of procedure: 08/26/20 Time of procedure: 10:34 Pre-op diagnosis: Positive stool hemoccult Post-op diagnosis: other (No polyps or neoplastic lesions) Procedure & Clinicians Study performed: Colonoscopy Same procedure as scheduled: Yes Indications: Positive stool Hemoccult Surgeon: Lainey Rivera Procedure Notes SCOAP/Timeout: Performed Procedure in detail: The patient was brought to the room and placed in left lateral decubitus position with all bony prominences padded. A time-out was performed and then the patient was given procedural sedation by Dr. Devine. Vitals were monitored and managed by Dr. Devine throughout the procedure. The patient had an episode of oxygen desaturation to 67% coughing up some phlegm, consistent with wearing a spasm in response to fluid droplets hitting the vocal cords. A communicated with Dr. Devine throughout this event, and the patient continued to improve until her oxygen saturations were up in the 90s. We were therefore able to complete the procedure as follows. Once adequately sedated, the procedure was begun. A rectal exam was performed revealing soft external hemorrhoid remnant tags. The colonoscope was then introduced to the rectum and advanced to the cecum in the usual fashion. The colon was quite tortuous, and required multiple maneuvers including using the stiffener, and 2 nurses giving counter pressure on the abdomen in order to reduce the loops in the scope and to reach the cecum safely. The cecum was identified by the appendiceal orifice, the mucosal tri-fold, and the ileocecal valve. The scope was then retracted whi le rotating side to side and examining each mucosal fold. No polyps or other neoplastic abnormalities were seen in the colon. No significant diverticular were seen in the colon. At the conclusion of the procedure retroflexion was performed and small grade 1-2 internal hemorrhoids without stigmata of bleeding were seen. The scope was then withdrawn from the rectum the procedure was concluded. The patient tolerated the procedure well and was transferred to the PACU in stable condition. Scope withdrawal time: 8 Findings: other findings (Tortuous colon, otherwise no polyps or neoplasms) Specimen(s): none sent Complications: other (Oxygen desaturation due to laryngospasm) Post-procedure Recommendations: Other recommendation (With a normal colonoscopy, we usually recommend a repeat colonoscopy in 10 years. The patient will be 89 at that point, and should have a detailed discussion with her primary care doctor about whether not she is healthy enough for colonoscopy at that time.) Follow up: as needed Disposition: PACU
[2020-08-26] MEDS: ALBUTEROL 2.5 MG/3 ML NEB (ADULT) INH (10:39)
--- NOTE | 2020-08-26 11:04 | SUR.PHASEII ---
Report rcvd from Estelita and Liz, RNs. Pt resting comfortably sitting up in bed and slight wheezing noted bilaterally and firm abdomen, doctors aware of both and state pt fine to go home. Pt states small amount of cramping feeling in stomach and noted to passing flatus without problems. Pt drinking water.
--- NOTE | 2020-08-26 12:00 | SUR.PHASEII ---
1130-Pt up and ambulating gait steady to br and releasing flatus without difficulty and liquid clear yellow bm. Back to bedside sitting in a chair, all dc instructions given to pt and pt verbalizes understanding. iv dcd and site clear. Pt wanting to go home. Called in to Dr Rivera and Dr Devine OR room and both agree pt ok to go home. Pt also breathing better VSS and no longer wheezing auscultation bilateral lung camp clear.
--- NOTE | 2020-08-26 12:03 | SUR.PHASEII ---
1145-Pt assisted to get dressed by Glendy and then dcd via wc in stable condition with all belongings at 1200.
== END 2020-08-26 12:00 | disposition home or self-care (01) ==
PROVIDERS: PCP Family Medicine; Referring Provider Family Medicine; Visit Provider Surgery
PROC: 0DJD8ZZ Inspection of Lower Intestinal Tract, Via Natural or Artificial Opening Endoscopic (ICD-10-PCS; CPT 45378; principal; 2020-08-26 09:45)
DX: R19.5 Other fecal abnormalities (principal); J38.5 Laryngeal spasm; K64.4 Residual hemorrhoidal skin tags; K64.0 First degree hemorrhoids; J44.9 Chronic obstructive pulmonary disease, unspecified; E66.9 Obesity, unspecified
CPT/HCPCS: 45378; J2704; J7613

== ENCOUNTER 2021-01-11 13:36 | Emergency (ER) | payer MEDICARE, OTHER, SELFPAY ==
[2019-12-10 14:06] VITALS: BMI 31.3
[2021-01-11] VITALS (8 sets, daily range): BP systolic 112–194; BP diastolic 59–112; PULSE 83–91; RESP 18; TEMP 36.4; O2SAT 94–98
--- NOTE | 2021-01-11 13:54 | DI.RAD.S_ITS ---
PROCEDURE: XR WRIST RT MIN 3V INDICATIONS: fall TECHNIQUE: 4 views of the wrist were acquired. COMPARISON: None. FINDINGS: Bones: No fractures or dislocations. Osteoarthritic changes along radial aspect of right wrist most prominent at 1st CMC joint are seen. No suspicious bony lesions. Scaphoid view: Scaphoid is grossly intact. Soft tissues: No suspicious soft tissue calcifications. IMPRESSION: No acute right wrist fracture or dislocation. 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 Dictated by: Tree Gibbs M.D. on 01/11/2021 at 14:28 Approved by: Tree Gibbs M.D. on 01/11/2021 at 14:33
--- NOTE | 2021-01-11 15:02 | DI.CT.S_ITS ---
PROCEDURE: CT HEAD/BRAIN WO CON INDICATIONS: glf hit head TECHNIQUE: Noncontrast 4.5 mm thick angled axial sections acquired from the foramen magnum to the vertex, with coronal and sagittal reformats. For radiation dose reduction, the following was used: automated exposure control, adjustment of mA and/or kV according to patient size. COMPARISON: None. FINDINGS: Image quality: Excellent. CSF spaces: Basal cisterns are patent. No extra-axial fluid collections. The ventricles are symmetric in size and shape. Brain: No intracranial bleeds or masses. There is mildly cerebral volume loss for age, with resultant ventricular and sulcal prominence. There are moderate periventricular and deep white matter chronic small vessel ischemic changes. There is intracranial internal carotid artery atherosclerosis. Skull and face: Calvarium and visualized facial bones appear intact, without suspicious lesions. Sinuses: Visualized sinuses and mastoids are clear. IMPRESSION: 1. No acute intracranial abnormalities. No intracranial bleed or skull fracture. 2. Cerebral volume loss and chronic microvascular ischemic changes. Dictated by: Wang Velázquez M.D. on 01/11/2021 at 15:52 Approved by: Wang Velázquez M.D. on 01/11/2021 at 15:54
--- NOTE | 2021-01-11 15:02 | DI.RAD.S_ITS ---
PROCEDURE: XR PELVIS 1-2V INDICATIONS: pain sp fall TECHNIQUE: 2 AP views of the pelvis acquired. COMPARISON: [facility], , PELVIS W UNILATERAL HIP LEFT, 10/05/2015, 15:47. FINDINGS: Bones: No fractures or dislocations. Bilateral hip prostheses appear unchanged in alignment. No periprosthetic fractures. No suspicious bony lesions. Soft tissues: Visualized bowel gas pattern is normal. No suspicious soft tissue calcifications. IMPRESSION: 1. No fracture or dislocation. Dictated by: Godwin Burgess M.D. on 01/11/2021 at 15:30 Approved by: Godwin Burgess M.D. on 01/11/2021 at 15:31
--- NOTE | 2021-01-11 15:02 | DI.CT.S_ITS ---
PROCEDURE: CT CERVICAL SPINE WO CON INDICATIONS: glf TECHNIQUE: Noncontrast 3 mm thick sections acquired from the skull base to the T4 level. Sagittal and coronal reformats were then constructed. For radiation dose reduction, the following was used: automated exposure control, adjustment of mA and/or kV according to patient size. COMPARISON: None. FINDINGS: Image quality: Mild motion artifacts. Bones: No fractures or dislocations. There is grade 1 anterolisthesis of C3 on C4 and C4 on C5. There is severe degenerative disc disease at C5-C6 and moderate degenerative disc disease at C6-C7. Bilateral facet arthropathy, most severe at C3-C4 bilaterally and C4-C5 on the right. Moderate atlantoaxial joint degeneration. Visualized superior ribs are intact. Soft tissues: Prevertebral soft tissues are normal in thickness. No paravertebral hematomas. No apical pneumothoraces. IMPRESSION: 1. No fracture. 2. Degenerative changes in cervical spine as described. Dictated by: Wang Velázquez M.D. on 01/11/2021 at 15:54 Approved by: Wang Velázquez M.D. on 01/11/2021 at 15:59
--- NOTE | 2021-01-11 15:02 | DI.RAD.S_ITS ---
PROCEDURE: XR THORACIC SPINE 2V INDICATIONS: pain s/p glf TECHNIQUE: 3 views of the thoracic spine were acquired. COMPARISON: None. FINDINGS: Bones: No fractures or subluxation. There is a mild rightward curvature of the lumbar spine partially visualized. No suspicious bony lesions. 12 pairs of ribs are noted, and appear intact where visualized. Soft tissues: No paravertebral stripe thickening. IMPRESSION: 1. No fracture or subluxation. Dictated by: Godwin Burgess M.D. on 01/11/2021 at 15:21 Approved by: Godwin Burgess M.D. on 01/11/2021 at 15:24
--- NOTE | 2021-01-11 15:23 | ED.FALL ---
HPI - Fall <Lydia Alvarado RESEARCH RN SPEC-BC - Last Filed: 01/11/21 16:39> General Chief Complaint: Fall Stated Complaint: bad fall at home at 1015am Time Seen by Provider: 01/11/21 14:30 Source: patient Mode of arrival: Ambulatory Limitations: no limitations History of Present Illness HPI Narrative: The patient is an 85-year-old female nonsmoker with history of bilateral hip replacements who presents to emergency department with a chief complaint of a fall this morning at approximately 10:00 a.m. 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 She has not taken anything to feel better. She did not lose consciousness, denies any lightheadedness or dizziness, does not take any blood thinners. She states that she had a difficult time getting up, was evaluated by EMS and came to the emergency department p.o. be and ambulatory. She does know a bruise on her right shoulder, but states her right shoulder feels okay. She denies any C-spine pain. Modified trauma activated on arrival given age and mechanism. Related Data Home Medications Medication Instructions Recorded Confirmed aspirin 81 mg tablet,delayed 81 mg PO DAILY 04/03/18 12/07/20 release cholecalciferol (vitamin D3) 50 2,000 unit PO BID cap 04/03/18 12/07/20 mcg (2,000 unit) capsule PreserVision AREDS 2 tab PO BID 08/26/20 12/07/20 Previous Rx's Medication Instructions Recorded omeprazole 20 mg capsule,delayed 20 mg PO QDAY #90 cap 04/03/20 release sertraline 50 mg tablet 100 mg PO QDAY #180 tab 04/03/20 tolterodine 4 mg capsule,extended 4 mg PO QDAY #90 cap 04/03/20 release 24 hr olanzapine 2.5 mg tablet 2.5 mg PO HS #90 tab 05/08/20 simvastatin 40 mg tablet 40 mg PO Q DAY #90 tab 09/02/20 meloxicam 15 mg tablet 15 mg PO DAILY #30 tab 12/07/20 lorazepam 1 mg tablet 1 mg PO BIDP PRN #30 tab 01/06/21 Allergies Allergy/AdvReac Type Severity Reaction Status Date / Time digoxin [DIGOXIN] Allergy Mild LIGHTHEADED Verified 01/11/21 13:52 latex [LATEX] Allergy Mild Verified 01/11/21 13:52 silver Allergy Mild BLISTERS Verified 01/11/21 13:52 (FROM TEGADERM MESH) Review of Systems <RADHA Cotres - Last Filed: 01/11/21 16:39> Review of Systems Narrative: GENERAL: Denies chills, fatigue, malaise, fever, sweats. HEENT: Denies sinus pain, ear pain, sore throat, difficulty swallowing, dizziness. RESPIRATORY: Denies dyspnea, cough, wheezing, hemoptysis, sputum. CARDIOVASCULAR: Denies chest pain, palpitations, orthopnea, edema, GASTROINTESTINAL: Denies nausea, vomiting, abdominal pain, diarrhea, constipation, melena. : Denies dysuria, frequency, incontinence, hematuria, urinary retention. MUSCULOSKELETAL: See HPI SKIN: See HPI NEUROLOGIC: Denies weakness, headache, numbness, change in speech, confusion, seizures, incoordination. PSYCHIATRIC: No concerning psychosocial issues. 12 point review of systems is negative except for those stated above Patient History <RADHA Cortes - Last Filed: 01/11/21 16:39> Medical History Ankle pain, left (2009) Anxiety Bipolar disorder Bronchitis Cataract (03/2014) Chicken pox Chronic left shoulder pain (12/25/17) Chronic lumbar radiculopathy (08/26/14) Dysphagia, pharyngeal phase Episodic mood disorder (09/05/17) Essential tremor (05/19/15) Foot pain, left (2009) GERD (gastroesophageal reflux disease) Hyperlipidemia Hypothyroidism Internal hemorrhoids (~08/2020) Lumbar spinal stenosis Mumps (1966) Pulmonary nodule less than 6 mm in diameter with low risk for malignant neoplasm (~07/2020) 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 Mother Dementia Grandfather Pneumonia Grandfather Dementia Daughter Depression Social History marital status: details: 07/22/2007 number of children: 1 household members: none lives independently: Yes housing: [facility] pets and animals: No occupational status: previously employed Smoking Status: Never smoker alcohol intake: current substance use type: does not use Smoking Status: Never smoker alcohol intake frequency: other Substance Use Type: does not use Exam <RADHA Cortes - Last Filed: 01/11/21 16:39> Narrative Exam Narrative: GENERAL: This is a well-nourished, well-developed patient, in no acute distress HEAD: Atraumatic. Normocephalic. No temporal or scalp tenderness. EYES: Pupils equal round and reactive. Extraocular motions intact. No scleral icterus. No injection or drainage. ENT: Nose without bleeding, purulent drainage or septal hematoma. Wearing a mask. Airway patent. NECK: Trachea midline. No JVD or lymphadenopathy. Supple, nontender, no meningeal signs. CARDIOVASCULAR: Regular rate and rhythm without murmurs, gallops, or rubs. RESPIRATORY: Clear to auscultation. Breath sounds equal bilaterally. No wheezes, rales, or rhonchi. No cough. No increased respiratory effort. No accessory muscle use. GASTROINTESTINAL: Abdomen soft, non-tender, nondistended. No hepato-splenomegaly, or palpable masses. No guarding. EXTREMITIES: For range of motion noted right shoulder, able to fully flex and extend, negative empty can test. Positive right radial pulse. Diffuse palpation noted right wrist. Capillary refill intact. Diffuse pain to palpation bilateral hips. No pain to palpation right snuffbox on rest BACK: Diffuse pain to palpation noted the thoracic spine NEURO: AOx3. Clear speech. No gross cranial nerve deficit SKIN: 4 cm ecchymosis noted on lateral aspect of right shoulder Initial Vital Signs Initial Vital Signs: Vital Signs Temperature 97.6 F 01/11/21 13:49 Pulse Rate 90 01/11/21 13:49 Respiratory Rate 18 01/11/21 13:49 Blood Pressure 194/112 H 01/11/21 13:49 Pulse Oximetry 98 01/11/21 13:49 <Donnie Teague DO - Last Filed: 01/11/21 17:27> Initial Vital Signs Initial Vital Signs: Vital Signs Temperature 97.6 F 01/11/21 13:49 Pulse Rate 90 01/11/21 13:49 Respiratory Rate 18 01/11/21 13:49 Blood Pressure 194/112 H 01/11/21 13:49 Pulse Oximetry 98 01/11/21 13:49 Scores <RADHA Cortes Last Filed: 01/11/21 16:39> GCS [place] coma scale eye opening: Spontaneous [place] coma scale verbal response: Orientated Alexa coma scale motor response: Obey commands [place] coma scale total score: 15 Course <RADHA Cortes - Last Filed: 01/11/21 16:39> Orders Ordered: ED Orders 01/11/21 13:54 XR wrist RT min 3V Stat 01/11/21 15:02 CT cervical spine wo con Stat CT head/brain wo con Stat XR pelvis 1-2V Stat XR thoracic spine 2V Stat Vital Signs Vital signs: Vital Signs - 8 hr 01/11/21 13:49 01/11/21 14:21 01/11/21 14:22 Temperature 97.6 F Pulse Rate 90 91 H 90 Respiratory Rate 18 Blood Pressure 194/112 H 143/78 H Pulse Oximetry 98 96 96 01/11/21 14:30 01/11/21 15:00 01/11/21 15:28 Temperature Pulse Rate 85 87 88 Respiratory Rate Blood Pressure 112/59 L 112/76 151/90 H Pulse Oximetry 96 94 95 01/11/21 15:30 01/11/21 16:00 Temperature Pulse Rate 87 83 Respiratory Rate Blood Pressure 128/73 119/70 Pulse Oximetry 95 94 <Donnie Teague DO - Last Filed: 01/11/21 17:27> Orders Ordered: ED Orders 01/11/21 13:54 XR wrist RT min 3V Stat 01/11/21 15:02 CT cervical spine wo con Stat CT head/brain wo con Stat XR pelvis 1-2V Stat XR thoracic spine 2V Stat Vital Signs Vital signs: Vital Signs - 8 hr 01/11/21 13:49 01/11/21 14:21 01/11/21 14:22 Temperature 97.6 F Pulse Rate 90 91 H 90 Respiratory Rate 18 Blood Pressure 194/112 H 143/78 H Pulse Oximetry 98 96 96 01/11/21 14:30 01/11/21 15:00 01/11/21 15:28 Temperature Pulse Rate 85 87 88 Respiratory Rate Blood Pressure 112/59 L 112/76 151/90 H Pulse Oximetry 96 94 95 01/11/21 15:30 01/11/21 16:00 Temperature Pulse Rate 87 83 Respiratory Rate Blood Pressure 128/73 119/70 Pulse Oximetry 95 94 MDM - Fall <RADHA Cortes - Last Filed: 01/11/21 16:39> Imaging Data CT - cervical spine: Radiologist's Impression: [address] [place] [address] [id number] Scan ReportSigned Patient: Petty Christy RMR#: [id number]: 1935cct:[id number]/Sex: 85 / FDate of Service: 01/11/21Loc: EDAccession Number: [id number] Procedure: CT cervical spine wo con Ordering Provider: Lydia Alvarado-GUILLERMO PROCEDURE: CT CERVICAL SPINE WO CON INDICATIONS: glf TECHNIQUE: Noncontrast 3 mm thick sections acquired from the skull base to the T4 level. Sagittal and coronal reformats were then constructed. For radiation dose reduction, the following was used: automated exposure control, adjustment of mA and/or kV according to patient size. COMPARISON: None. FINDINGS: Image quality: Mild motion artifacts. Bones: No fractures or dislocations. There is grade 1 anterolisthesis of C3 on C4 and C4 on C5. There is severe degenerative disc disease at C5-C6 and moderate degenerative disc disease at C6-C7. Bilateral facet arthropathy, most severe at C3-C4 bilaterally and C4-C5 on the right. Moderate atlantoaxial joint degeneration. Visualized superior ribs are intact. Soft tissues: Prevertebral soft tissues are normal in thickness. No paravertebral hematomas. No apical pneumothoraces. IMPRESSION: 1. No fracture. 2. Degenerative changes in cervical spine as described. Dictated by: Wang Velázquez M.D. on 01/11/2021 at 15:54 Approved by: Wang Velázquez M.D. on 01/11/2021 at 15:59 Extremity x-ray #1: Radiologist's Impression: [address] [place] [address] [id number] ReportSigned Patient: Petty Christy RMR#: [id number]: 1935cct:[id number]/Sex: 85 / FDate of Service: 01/11/21Loc: EDAccession Number: [id number] Procedure: XR wrist RT min 3V Ordering Provider: Donnie Teague D.O. PROCEDURE: XR WRIST RT MIN 3V INDICATIONS: fall TECHNIQUE: 4 views of the wrist were acquired. COMPARISON: None. FINDINGS: Bones: No fractures or dislocations. Osteoarthritic changes along radial aspect of right wrist most prominent at 1st CMC joint are seen. No suspicious bony lesions. Scaphoid view: Scaphoid is grossly intact. Soft tissues: No suspicious soft tissue calcifications. IMPRESSION: No acute right wrist fracture or dislocation. 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 Dictated by: Tree Gibbs M.D. on 01/11/2021 at 14:28 Approved by: Tree Gibbs M.D. on 01/11/2021 at 14:33 CT scan - head: Radiologist's Impression: [address] [place] [address] [id number] Scan ReportSigned Patient: Petty Christy RMR#: [id number]: 7Acct:[id number]/Sex: 85 / FDate of Service: 01/11/21Loc: EDAccession Number: [id number] Procedure: CT head/brain wo con Ordering Provider: Lydia Alvarado PROCEDURE: CT HEAD/BRAIN WO CON INDICATIONS: glf hit head TECHNIQUE: Noncontrast 4.5 mm thick angled axial sections acquired from the foramen magnum to the vertex, with coronal and sagittal reformats. For radiation dose reduction, the following was used: automated exposure control, adjustment of mA and/or kV according to patient size. COMPARISON: None. FINDINGS: Image quality: Excellent. CSF spaces: Basal cisterns are patent. No extra-axial fluid collections. The ventricles are symmetric in size and shape. Brain: No intracranial bleeds or masses. There is mildly cerebral volume loss for age, with resultant ventricular and sulcal prominence. There are moderate periventricular and deep white matter chronic small vessel ischemic changes. There is intracranial internal carotid artery atherosclerosis. Skull and face: Calvarium and visualized facial bones appear intact, without suspicious lesions. Sinuses: Visualized sinuses and mastoids are clear. IMPRESSION: 1. No acute intracranial abnormalities. No intracranial bleed or skull fracture. 2. Cerebral volume loss and chronic microvascular ischemic changes. Dictated by: Wang Velázquez M.D. on 01/11/2021 at 15:52 Approved by: Wang Velázquez M.D. on 01/11/2021 at 15:54 t spine : Radiologist's Impression: [address] [place] [address] [id number] ReportSigned Patient: Petty Christy RMR#: [id number]: 1935cct:[id number]/Sex: 85 / FDate of Service: 01/11/21Loc: EDAccession Number: [id number] Procedure: XR thoracic spine 2V Ordering Provider: Lydia Alvarado [facility] PROCEDURE: XR THORACIC SPINE 2V INDICATIONS: pain s/p glf TECHNIQUE: 3 views of the thoracic spine were acquired. COMPARISON: None. FINDINGS: Bones: No fractures or subluxation. There is a mild rightward curvature of the lumbar spine partially visualized. No suspicious bony lesions. 12 pairs of ribs are noted, and appear intact where visualized. Soft tissues: No paravertebral stripe thickening. IMPRESSION: 1. No fracture or subluxation. Dictated by: Godwin Burgess M.D. on 01/11/2021 at 15:21 Approved by: Godwin Burgess M.D. on 01/11/2021 at 15:24 pelvis xray : Radiologist's Impression: [address] [place] [address] [id number] ReportSigned Patient: Petty Christy RMR#: [id number]: 7Acct:[id number]/Sex: 85 / FDate of Service: 01/11/21Loc: EDAccession Number: [id number] Procedure: XR pelvis 1-2V Ordering Provider: Lydia Alvarado PROCEDURE: XR PELVIS 1-2V INDICATIONS: pain sp fall TECHNIQUE: 2 AP views of the pelvis acquired. COMPARISON: [facility], , PELVIS W UNILATERAL HIP LEFT, 10/05/2015, 15:47. FINDINGS: Bones: No fractures or dislocations. Bilateral hip prostheses appear unchanged in alignment. No periprosthetic fractures. No suspicious bony lesions. Soft tissues: Visualized bowel gas pattern is normal. No suspicious soft tissue calcifications. IMPRESSION: 1. No fracture or dislocation. Dictated by: Godwin Burgess M.D. on 01/11/2021 at 15:30 Approved by: Godwin Burgess M.D. on 01/11/2021 at 15:31 MDM Narrative Medical decision making narrative: The patient is an 85-year-old female who presents after ground level fall earlier this morning. Given that she hit her head and a bed states, CT of head and neck obtained which came back negative. She does have some right wrist pain with no snuffbox pain to palpation. Encouraged xyln-dyn-spmqohd medications as well as rest ice compression elevation. Patient has been ambulatory throughout her stay in the emergency department. Thoracic spine film resulted negative. Viewed pelvis x-rays with Dr. Teague, noted no acute findings. I encouraged her to follow up with primary care provider and use [id number]-hvi-[id number] medications. Patient advised have no questions or concerns upon discharge states understanding of return precautions as well as follow-up care. Discharge Plan Departure Patient Disposition: Home Clinical Impression: Fall from ground level Pain in wrist Qualifiers: Laterality: right Qualified Code(s): M25.531 - Pain in right wrist Contusion of right shoulder Qualifiers: Encounter type: initial encounter Qualified Code(s): S40.011A - Contusion of right shoulder, initial encounter Back pain Qualifiers: Back pain location: thoracic back pain Chronicity: acute Back pain laterality: bilateral Qualified Code(s): M54.6 - Pain in thoracic spine Instructions: DI for Contusion, How to Prevent Falls, DI for Wrist Pain, DI for Thoracic Back Pain Activity Restrictions/Additional Instructions: Thank you for trusting us with your care today. Your CTs of your head and C-spine came back with no acute findings today, which is excellent news Please follow-up with primary care provider in the next few days. Please use jnim-[id number]-[id number] medications as needed and able. As I discussed, your x-ray shows no acute fracture. This does not rule out a soft tissue injury such as a ligament or tendon injury. It is important that you follow up with primary care provider, especially if worsening or no improvement. There can be fractures that did not show up on initial x-ray. Prescriptions: No Action olanzapine [Zyprexa] 2.5 mg tablet 2.5 mg PO HS Qty: 90 RF: 3 Hold Instructions: trial without lorazepam [Ativan] 1 mg tablet 1 mg PO BIDP PRN (Reason: Anxeity) Qty: 30 RF: 5 meloxicam 15 mg tablet 15 mg PO DAILY Qty: 30 RF: 1 aspirin 81 mg tablet,delayed release (DR/EC) 81 mg PO DAILY RF: 0 cholecalciferol (vitamin D3) 2,000 unit capsule 2,000 unit PO BID RF: 0 omeprazole 20 mg capsule,delayed release(DR/EC) 20 mg PO QDAY Qty: 90 RF: 3 sertraline [Zoloft] 50 mg tablet 100 mg PO QDAY Qty: 180 RF: 3 tolterodine [Detrol LA] 4 mg capsule,extended release 24hr 4 mg PO QDAY Qty: 90 RF: 3 simvastatin [Zocor] 40 mg tablet 40 mg PO Q DAY Qty: 90 RF: 3 PreserVision AREDS [id number]-hb-[id number] Tablet 2 tab PO BID RF: 0 Referrals: Kaitlin Weiss DO [Primary Care Provider] - <Donnie Teague DO - Last Filed: 01/11/21 17:27> Cosign ED Attending Cosignature Attestation: Dr Teague Co-Sign Statement: I was available for consultation during this patient's emergency department visit. This chart is signed by myself for administrative purposes only. I did not have direct contact with this patient during this visit. They were seen independently by the APC.
== END 2021-01-11 16:44 | disposition home or self-care (01) ==
PROVIDERS: Emergency Provider Nurse Practitioner Family; PCP Family Medicine
DX: M25.531 Pain in right wrist (principal); S40.011A Contusion of right shoulder, initial encounter; M54.6 Pain in thoracic spine; S09.90XA Unspecified injury of head, initial encounter; W18.30XA Fall on same level, unspecified, initial encounter
CPT/HCPCS: 70450; 72070; 72125; 72170; 73110; 99283; 99284

== ENCOUNTER 2021-03-05 10:14 | Emergency (ER) | payer MEDICARE, OTHER, SELFPAY ==
[2019-12-10 14:06] VITALS: BMI 31.3
--- NOTE | 2021-03-05 10:32 | DI.US.S_ITS ---
PROCEDURE: US PERIPH VENOUS LOW EXTREM RT INDICATIONS: Leg pain TECHNIQUE: Real-time imaging, as well as color and pulse Doppler interrogation, were performed of the lower extremity deep veins from the inguinal ligament to the popliteal fossa. COMPARISON: [facility], , PVE UNILATERAL RIGHT, 06/04/2011, 11:55. FINDINGS: The common femoral, femoral and popliteal veins are normally compressible, and free of intraluminal thrombus. Color and pulse Doppler demonstrate normal phasic intraluminal flow. There is normal augmentation response to distal compression maneuver. IMPRESSION: Negative for deep venous thrombosis. Dictated by: Margarito Wright M.D. on 03/05/2021 at 10:38 Approved by: Margarito Wright M.D. on 03/05/2021 at 10:39
[2021-03-05 10:33] VITALS: BP 164/82; PULSE 85; RESP 17; TEMP 36.4; O2SAT 96
[2021-03-05 11:59] VITALS: PULSE 70
--- NOTE | 2021-03-05 13:28 | ED_ITS ---
HPI - Extremity Problem General Chief complaint: Extremity Problem,Nontraumatic Stated complaint: Swollen lower right leg. sent over per her Bhatti Time Seen by Provider: 03/05/21 13:25 Source: patient and other (friend at bedside.) Mode of arrival: Ambulatory Limitations: no limitations History of Present Illness HPI Narrative: This is an 85-year-old female comes to the emergency department with complaint of swelling and pain of her right lower leg. Patient actually states she has pain of both lower legs but more on the right and feels more swollen. Patient states she has not noticed any warmth, no erythema or other skin changes noted. She does take an aspirin daily. She has been doing physical therapy and they have been having the patient do toe list and toe touches and then she developed discomfort in both of her calves. Patient was anxious as her father from a thrombosis in his 30s. She has not had prior DVTs. Patient states she is in physical therapy currently because she had a fall and had increased weakness. Patient has no other complaints at this time. She does not she has have some numbness on the bottoms of both feet for the last several months starting in July but has not had any changes otherwise. She denies back pain. She denies diabetes. Related Data Home Medications Medication Instructions Recorded Confirmed aspirin 81 mg tablet,delayed 81 mg PO DAILY 04/03/18 02/22/21 release cholecalciferol (vitamin D3) 50 2,000 unit PO BID cap 04/03/18 02/22/21 mcg (2,000 unit) capsule PreserVision AREDS 2 tab PO BID 08/26/20 02/22/21 Previous Rx's Medication Instructions Recorded omeprazole 20 mg capsule,delayed 20 mg PO QDAY #90 cap 04/03/20 release sertraline 50 mg tablet 100 mg PO QDAY #180 tab 04/03/20 tolterodine 4 mg capsule,extended 4 mg PO QDAY #90 cap 04/03/20 release 24 hr olanzapine 2.5 mg tablet 2.5 mg PO HS #90 tab 05/08/20 simvastatin 40 mg tablet 40 mg PO Q DAY #90 tab 09/02/20 meloxicam 15 mg tablet 15 mg PO DAILY #30 tab 12/07/20 lorazepam 1 mg tablet 1 mg PO BIDP PRN #30 tab 01/06/21 Allergies Allergy/AdvReac Type Severity Reaction Status Date / Time digoxin [DIGOXIN] Allergy Mild LIGHTHEADED Verified 02/22/21 15:07 latex [LATEX] Allergy Mild Verified 02/22/21 15:07 silver Allergy Mild BLISTERS Verified 02/22/21 15:07 (FROM TEGADERM MESH) Review of Systems Review of Systems ROS Unobtainable: All systems reviewed & are unremarkable except as noted in HPI and below Patient History Medical History Ankle pain, left (2009) Anxiety Bipolar disorder Bronchitis Cataract (03/2014) Chicken pox Chronic left shoulder pain (12/25/17) Chronic lumbar radiculopathy (08/26/14) Dysphagia, pharyngeal phase Episodic mood disorder (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/17) Essential tremor (05/19/15) Foot pain, left (2009) GERD (gastroesophageal reflux disease) Hyperlipidemia Hypothyroidism Internal hemorrhoids (~08/2020) Lumbar spinal stenosis Mumps (1966) Pulmonary nodule less than 6 mm in diameter with low risk for malignant neoplasm (~07/2020) 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 Mother Dementia Grandfather Pneumonia Grandfather Dementia Daughter Depression Social History marital status: details: 07/22/2007 number of children: 1 household members: none lives independently: Yes housing: condominium pets and animals: No occupational status: previously employed Smoking Status: Never smoker alcohol intake: current substance use type: does not use Smoking Status: Never smoker alcohol intake frequency: other Substance Use Type: does not use Exam Narrative Exam Narrative: GENERAL: Alert and oriented x three, well-nourished elderly female in mild distress. HEENT: Head normocephalic, atraumatic, EOMI, pupils reactive, face symmetric, moist mucous membranes NECK: Supple, full range of motion EXTREMITIES: Normal range of motion, no clubbing or edema. Neurovascularly intact. Normal sensation throughout. Patient has normal range of motion. 5/5 muscle strength. Patient has 2+ pulse on the right lower extremity. With no warmth, erythema or other skin changes noted. NEUROLOGICAL: Cranial nerves II through XII grossly intact. Moving all extremities SKIN: Warm, dry, no petechiae, no rashes or lesions. Initial Vital Signs Initial Vital Signs: Vital Signs Temperature 97.6 F 03/05/21 10:33 Pulse Rate 85 03/05/21 10:33 Respiratory Rate 17 03/05/21 10:33 Blood Pressure 164/82 H 03/05/21 10:33 Pulse Oximetry 96 03/05/21 10:33 Course Orders Ordered: ED Orders 03/05/21 10:32 [facility] venous low extrem rt Stat Vital Signs Vital signs: Vital Signs - 8 hr 03/05/21 11:59 03/05/21 13:53 Pulse Rate 68 Pulse Rate [Right Dorsalis Pedis] 70 Respiratory Rate 16 Blood Pressure 154/72 H Pulse Oximetry 98 MDM - Extremity (Nontraumatic) Imaging Data US - DVT: Radiologist's Impression: [address] [id number] ReportSigned Patient: Petty Christy RMR#: [id number]: 1935cct:[id number]/Sex: 85 / FDate of Service: 03/05/21Loc: EDAccession Number: [id number] Procedure: perip venous low extrem rt Ordering Provider: Lydia Posada D.O. PROCEDURE: PERIP VENOUS LOW EXTREM RT INDICATIONS: Leg pain TECHNIQUE: Real-time imaging, as well as color and pulse Doppler interrogation, were performed of the lower extremity deep veins from the inguinal ligament to the popliteal fossa. COMPARISON: [facility], PVE UNILATERAL RIGHT, 06/04/2011, 11:55. FINDINGS: The common femoral, femoral and popliteal veins are normally compressible, and free of intraluminal thrombus. Color and pulse Doppler demonstrate normal phasic intraluminal flow. There is normal augmentation response to distal compression maneuver. IMPRESSION: Negative for deep venous thrombosis. Dictated by: Margarito Wright M.D. on 03/05/2021 at 10:38 Approved by: Margarito Wright M.D. on 03/05/2021 at 10:39 [facility] Narrative Medical decision making narrative: This is an 85-year-old female with bilateral lower extremity pain but significantly more in the right lower extremity sent by her physician. Patient's DVT ultrasound is negative. Upon further discussion patient has noted she has been seeing physical therapy and they have been doing a lot of calf exercises and are the likely source of her discomfort. Patient was quite anxious as her father of a DVT/PE at age 39. Patient is otherwise asymptomatic with no signs of infection or other but causes pain in her extremity on examination. Discharge Plan Departure Patient Disposition: Home Clinical Impression: Leg pain, right Instructions: DI for Leg Pain Activity Restrictions/Additional Instructions: Follow up with your physician for recheck if you are not improving. Discussed with your physical therapist if you need to adjust your activity/therapy for the short term. May take Tylenol up to a 1000 mg every 8 hours as needed for pain. You may continue home medications as prescribed. Please return for new or worsening swelling, pain, redness, loss of sensation, new chest pain, shortness of breath, fevers or other new or concerning symptoms. Prescriptions: No Action olanzapine [Zyprexa] 2.5 mg tablet 2.5 mg PO HS Qty: 90 RF: 3 Hold Instructions: trial without lorazepam [Ativan] 1 mg tablet 1 mg PO BIDP PRN (Reason: Anxeity) Qty: 30 RF: 5 meloxicam 15 mg tablet 15 mg PO DAILY Qty: 30 RF: 1 aspirin 81 mg tablet,delayed release (DR/EC) 81 mg PO DAILY RF: 0 cholecalciferol (vitamin D3) 2,000 unit capsule 2,000 unit PO BID RF: 0 omeprazole 20 mg capsule,delayed release(DR/EC) 20 mg PO QDAY Qty: 90 RF: 3 sertraline [Zoloft] 50 mg tablet 100 mg PO QDAY Qty: 180 RF: 3 tolterodine [Detrol LA] 4 mg capsule,extended release 24hr 4 mg PO QDAY Qty: 90 RF: 3 simvastatin [Zocor] 40 mg tablet 40 mg PO Q DAY Qty: 90 RF: 3 PreserVision AREDS [id number] Tablet 2 tab PO BID RF: 0 Referrals: Kaitlin Weiss DO [Primary Care Provider] -
[2021-03-05 13:53] VITALS: BP 154/72; PULSE 68; RESP 16; O2SAT 98
== END 2021-03-05 14:03 | disposition home or self-care (01) ==
PROVIDERS: Emergency Provider Emergency Medicine; PCP Family Medicine
DX: M79.604 Pain in right leg (principal)
CPT/HCPCS: 93971; 99283

== ENCOUNTER → 2021-04-07 13:55 | Outpatient (CLI) | payer MEDICARE, OTHER, SELFPAY ==
[2019-12-10 14:06] VITALS: BMI 31.3
[2021-04-07 15:18] LABS: Add Manual Diff / Slide Review NO; Basophils Absolute Auto 0 /uL (0-100); Basophils Percent Auto 0.5 % (0-2); Eosinophils Absolute Auto 300 /uL (0-450); Eosinophils Percent Auto 4.1 % (2-4); Hematocrit 41.4 % (36-46); Hemoglobin 13.7 g/dL (12.0-16.0); Lymphocytes Absolute Auto 2100 /uL (1100-4500); Lymphocytes Percent Auto 25.2 % (25-40); Mean Corpuscular HGB Conc 33.1 % (30-36); Mean Corpuscular Hemoglobin 29.1 PG (26-34); Monocytes Absolute Auto 800 /uL (0-900); Monocytes Percent Auto 9.3 % (3-14); Neutrophils Absolute Auto 5100 /uL (1500-7000); Neutrophils Percent Auto 60.9 % (50-75); Platelet Count 287 X10^3/uL (150-400); Red Cell Distribution Width 13.8 % (11.6-14.8); White Blood Cell Count 8.4 X10^3/uL (4.5-11.0)
[2021-04-07 16:49] LABS: TSH w/ Reflex to FT4 1.66 uIU/mL (0.47-4.68)
[2021-04-08 04:29] LABS: Alanine Aminotransferase 51 IU/L (<35); Albumin 4.6 g/dL (3.5-5.0); Albumin Globulin Ratio 1.8 (1.0-2.8); Alkaline Phosphatase 76 U/L (38-126); Aspartate Aminotransferase 48 IU/L (14-36); BUN Creatinine Ratio 24.6 (6-22); Bilirubin Total 0.3 mg/dL (0.2-1.3); Blood Urea Nitrogen 17 mg/dL (7-17); Calcium 10.3 mg/dL (8.4-10.2); Carbon Dioxide 28 mmol/L (22-32); Chloride 101 mmol/L (98-107); Estimated Glomerular Filt Rate > 60.0 mL/min (>60); Globulin 2.6 g/dL (1.7-4.1); Glucose 98 mg/dL (80-110); HEMOLYSIS < 15 (0-50); Potassium 4.7 mmol/L (3.4-5.1); Sodium 137 mmol/L (137-145); Total Protein 7.2 g/dL (6.3-8.2)
[2021-04-08 05:17] LABS: Vitamin B12 Reflex MMA if <400 916 pg/mL (239-931)
== END ==
PROVIDERS: PCP Family Medicine; Referring Provider Family Medicine; Visit Provider Family Medicine
DX: E66.9 Obesity, unspecified (principal); Z79.899 Other long term (current) drug therapy; G62.9 Polyneuropathy, unspecified
CPT/HCPCS: 36415; 80053; 82607; 84443; 85025

== ENCOUNTER → 2021-06-08 15:20 | Outpatient (CLI) | payer MEDICARE, OTHER, SELFPAY ==
[2019-12-10 14:06] VITALS: BMI 31.3
[2021-06-08 16:12] LABS: Alanine Aminotransferase 54 IU/L (<35); Albumin 4.7 g/dL (3.5-5.0); Albumin Globulin Ratio 1.6 (1.0-2.8); Alkaline Phosphatase 74 U/L (38-126); Aspartate Aminotransferase 54 IU/L (14-36); BUN Creatinine Ratio 20.9 (6-22); Bilirubin Total 0.4 mg/dL (0.2-1.3); Blood Urea Nitrogen 18 mg/dL (7-17); Calcium 10.1 mg/dL (8.4-10.2); Carbon Dioxide 24 mmol/L (22-32); Chloride 102 mmol/L (98-107); Estimated Glomerular Filt Rate > 60.0 mL/min (>60); Glucose 144 mg/dL (80-110); HEMOLYSIS < 15 (0-50); Potassium 4.4 mmol/L (3.4-5.1); Sodium 138 mmol/L (137-145); Total Protein 7.7 g/dL (6.3-8.2)
[2021-06-09 20:36] LABS: Calcium 10.3 mg/dL (8.7-10.3); Parathyroid Hormone, Intact 36 pg/mL (15-65)
== END ==
PROVIDERS: PCP Family Medicine; Referring Provider Family Medicine; Visit Provider Family Medicine
DX: E66.9 Obesity, unspecified (principal); E83.52 Hypercalcemia; R79.89 Other specified abnormal findings of blood chemistry; Z79.899 Other long term (current) drug therapy
CPT/HCPCS: 36415; 80053; 82310; 83970

== ENCOUNTER → 2021-07-02 09:54 | Outpatient (CLI) | payer MEDICARE, OTHER, SELFPAY ==
[2019-12-10 14:06] VITALS: BMI 31.3
--- NOTE | 2021-07-02 | DI.MG.S_ITS ---
BILATERAL DIGITAL SCREENING MAMMOGRAM 3D/2D WITH CAD: 07/02/2021 CLINICAL: Routine screening. Comparison is made to exams dated: 06/22/2020 mammogram, 06/21/2019 mammogram, 06/04/2018 mammogram - [facility], and 04/25/2017 mammogram - [facility]. There are scattered fibroglandular elements in both breasts. Current study was also evaluated with a Computer Aided Detection (CAD) system. There are benign post operative findings in the right breast. No significant masses, calcifications, or other findings are seen in either breast. There has been no significant interval change. IMPRESSION: BENIGN There is no mammographic evidence of malignancy. A 1 year screening mammogram is recommended. This exam was interpreted at Station ID: [id number]. NOTE: For mammograms, a report in lay terms will be sent to the patient. Approximately 15% of breast malignancies will not be visualized mammographically. In the management of a palpable breast mass, a negative mammogram must not discourage biopsy of a clinically suspicious lesion. Electronically Signed By: Doc mon/minh:07/02/2021 12:35:56 letter sent: Normal Exam ACR BI-RADS Category 2: Benign Finding(s) 3342F
== END ==
PROVIDERS: PCP Family Medicine; Referring Provider Family Medicine; Visit Provider Family Medicine
DX: Z12.31 Encounter for screening mammogram for malignant neoplasm of breast (principal)
CPT/HCPCS: 77063; 77067

== ENCOUNTER → 2021-07-09 14:10 | Outpatient (CLI) | payer MEDICARE, OTHER, SELFPAY ==
[2019-12-10 14:06] VITALS: BMI 31.3
== END ==
PROVIDERS: PCP Family Medicine; Visit Provider Nurse Practitioner
DX: N39.0 Urinary tract infection, site not specified (principal)
CPT/HCPCS: 87086

== ENCOUNTER → 2021-07-15 11:20 | Outpatient (CLI) | payer MEDICARE, OTHER, SELFPAY ==
[2019-12-10 14:06] VITALS: BMI 31.3
--- NOTE | 2021-07-15 11:22 | DI.RAD.S_ITS ---
PROCEDURE: XR ACUTE ABDOMEN SERIES INDICATIONS: abdomen pain TECHNIQUE: One view chest and two views of the abdomen were acquired. COMPARISON: [facility], CR, XR PELVIS 1-2V, 01/11/2021, 15:08. FINDINGS: Surgical changes and devices: None. Chest: Lungs are clear. Heart size is normal. No pleural effusions. No pneumoperitoneum. Abdomen: Bowel gas pattern is normal. No suspicious calcifications. Visualized solid organ contours appear normal. Bones: No suspicious bony lesions. Stable appearing bilateral total hip arthroplasties. IMPRESSION: Nonspecific bowel gas pattern. Moderate colonic obstipation. Dictated by: Gualberto Souza M.D. on 07/15/2021 at 13:27 Approved by: Gualberto Souza M.D. on 07/15/2021 at 13:28
[2021-07-15 11:52] LABS: Bacteria Urine None Seen; RBC Urine None Seen (0-5/HPF); WBC Urine None Seen (0-5/HPF)
[2021-07-15 12:42] LABS: Appearance Urine UA CLEAR; Bilirubin Urine UA NEGATIVE (NEGATIVE); Color Urine UA YELLOW; Glucose Urine UA TRACE g/dL (Negative); Ketones Urine UA NEGATIVE (NEGATIVE); Leukocyte Esterase Urine UA TRACE (NEGATIVE); Nitrite Urine UA NEGATIVE (Negative); Occult Blood Urine UA TRACE-INTACT (Negative); Protein Urine UA NEGATIVE (Negative); Specific Gravity Urine UA 1.015 (1.000-1.035); Urobilinogen Urine UA 0.2 E.U./dL (0.2); pH Urine UA 5.5 (4.5-8.0)
[2021-07-15 12:44] LABS: Culture Indicated Urine Cult Not Indicated; Urine Comments Microscopic Normal
[2021-07-15 12:46] LABS: Alanine Aminotransferase 43 IU/L (<35); Albumin 4.9 g/dL (3.5-5.0); Albumin Globulin Ratio 1.5 (1.0-2.8); Alkaline Phosphatase 61 U/L (38-126); Aspartate Aminotransferase 53 IU/L (14-36); BUN Creatinine Ratio 24.6 (6-22); Bilirubin Total 0.9 mg/dL (0.2-1.3); Blood Urea Nitrogen 17 mg/dL (7-17); Calcium 9.6 mg/dL (8.4-10.2); Carbon Dioxide 24 mmol/L (22-32); Chloride 102 mmol/L (98-107); Estimated Glomerular Filt Rate > 60.0 mL/min (>60); Globulin 3.3 g/dL (1.7-4.1); Glucose 107 mg/dL (80-110); Potassium 4.8 mmol/L (3.4-5.1); Sodium 137 mmol/L (137-145); Total Protein 8.2 g/dL (6.3-8.2)
[2021-07-15 12:47] LABS: HEMOLYSIS 153 (0-50)
[2021-07-15 12:52] LABS: Add Manual Diff / Slide Review NO; Basophils Absolute Auto 100 /uL (0-100); Basophils Percent Auto 1.1 % (0-2); Eosinophils Absolute Auto 100 /uL (0-450); Eosinophils Percent Auto 1.2 % (2-4); Hemoglobin 14.9 g/dL (12.0-16.0); Lymphocytes Absolute Auto 1900 /uL (1100-4500); Lymphocytes Percent Auto 21.2 % (25-40); Mean Corpuscular HGB Conc 33.9 % (30-36); Mean Corpuscular Hemoglobin 29.9 PG (26-34); Mean Corpuscular Volume 88.1 fL (80-100); Monocytes Absolute Auto 700 /uL (0-900); Monocytes Percent Auto 7.9 % (3-14); Neutrophils Absolute Auto 6100 /uL (1500-7000); Neutrophils Percent Auto 68.6 % (50-75); Red Blood Cell Count 4.99 X10^6/uL (4.0-5.2); Red Cell Distribution Width 14.2 % (11.6-14.8); White Blood Cell Count 8.9 X10^3/uL (4.5-11.0)
[2021-07-15 12:59] LABS: Platelet Count 311 X10^3/uL (150-400)
== END ==
PROVIDERS: PCP Family Medicine; Referring Provider Nurse Practitioner Family; Visit Provider Nurse Practitioner Family
DX: R10.12 Left upper quadrant pain (principal); N39.0 Urinary tract infection, site not specified
CPT/HCPCS: 36415; 74022; 80053; 81001; 85025; 87086

== ENCOUNTER → 2021-07-26 10:09 | Outpatient (CLI) | payer MEDICARE, OTHER, SELFPAY ==
[2019-12-10 14:06] VITALS: BMI 31.3
--- NOTE | 2021-07-26 10:39 | DI.CT.S_ITS ---
PROCEDURE: CT CHEST WO CON INDICATIONS: follow up chest nodule; COPD TECHNIQUE: Noncontrast 2.0-2.5 mm thick sections acquired from the pulmonary apices to the posterior costophrenic angles. 7 mm thick axial MIP and 5 mm coronal and sagittal reformats were then acquired. A low radiation dose technique was utilized. COMPARISON: [facility], CT, CT CHEST WO CON, 08/06/2020, 11:34. FINDINGS: Image quality: Diagnostic, given the low radiation dose technique. Lungs and pleura: Previously identified 4 mm right middle lobe nodule is felt to be relatively unchanged, however it is not as well visualized secondary to motion. No new nodules are identified. No consolidations or effusions. Mediastinum: Heart size is normal. No pericardial effusion. No mediastinal adenopathy by size criteria. Thoracic aorta and central pulmonary arteries are normal in size. Esophagus is normal in caliber. No hiatal hernia. Bones and chest wall: No suspicious bony lesions. No vertebral body compression fractures. No axillary or supraclavicular adenopathy by size criteria. Thyroid gland is unremarkable . Abdomen: Hepatic steatosis is present. Low-attenuation focus within the left lobe likely cyst is unchanged. Otherwise, visualized upper abdomen solid organs and bowel loops appear normal in the absence of contrast. IMPRESSION: 1. Stable appearance of 4 mm right middle lobe nodule first visualized on 08/06/2020. Based on recommendations below, no additional follow-up. Fleischner Society criteria for SOLID lung nodule followup. Nodule size (mm)Low-risk patientHigh-risk patient<6 (single or multiple)No routine followup.Optional CT at 12 months. 6-8 (single or multiple)CT at 6-12 months, then optional CT at 18-24 mo.CT at 6-12 months, then CT at 18-24 months. >8 (single)CT at 3 months, PET-CT, or biopsy. Same as for low-risk pts. >8 (multiple)CT at 3-6 months, then optional CT at 18-24 mo.CT at 3-6 months, then CT at 18-24 months. Recommendations do not apply to lung cancer screening, patients with immunosuppression, or patients with known primary cancer. Dictated by: Fallon Richardson M.D. on 07/26/2021 at 14:59 Approved by: Fallon Richardson M.D. on 07/26/2021 at 15:02
== END ==
PROVIDERS: PCP Family Medicine; Referring Provider Family Medicine; Visit Provider Family Medicine
DX: J98.4 Other disorders of lung (principal); R22.2 Localized swelling, mass and lump, trunk; J44.9 Chronic obstructive pulmonary disease, unspecified; K76.0 Fatty (change of) liver, not elsewhere classified
CPT/HCPCS: 71250

== ENCOUNTER → 2021-08-02 10:55 | Outpatient (CLI) | payer MEDICARE, OTHER, SELFPAY ==
[2019-12-10 14:06] VITALS: BMI 31.3
--- NOTE | 2021-08-02 10:56 | DI.US.S_ITS ---
PROCEDURE: US ABDOMEN COMPLETE INDICATIONS: LUQ PAIN TECHNIQUE: Real-time scanning was performed of the abdominal and retroperitoneal organs, with image documentation. COMPARISON: [facility], CR, XR ACUTE ABDOMEN SERIES, 07/15/2021, 11:57. [facility], US, ABDOMEN LIMITED, 10/06/2015, 14:52. FINDINGS: Liver: The liver demonstrates normal size. The liver demonstrates generalized moderately increased echogenicity. This decreases ultrasound sensitivity for detection of hepatic masses. Within the left lobe of the liver, there is a simple appearing 2.6 cm cyst. Gallbladder: No findings of gallstones or sludge are seen. The gallbladder wall is not thickened, measuring 3 mm or less. No specific pericholecystic fluid is seen. The sonographic Paz sign is negative. Biliary ducts: The bile ducts are not well seen. Intrahepatic bile ducts are non-dilated. Extrahepatic bile duct caliber measures 4 mm. Normal is 6-7 mm or less in diameter, or 10 mm or less post-cholecystectomy. Pancreas: The pancreas is not well seen. Spleen: Spleen is normal in size and homogeneous in echotexture. Kidneys: Kidneys are normal in size and echotexture. Right kidney measures 11.6 cm long; left kidney measures 11.1 cm long. No hydronephrosis or nephrolithiasis. No solid masses. Aorta: Not seen. Iliacs: Not seen. IVC: Not seen. Miscellaneous: No free abdominal fluid. This study is limited by body habitus and breathing motion artifact. IMPRESSION: Limited study, without an imaging explanation found for the patient's presenting history of left upper quadrant pain. The gallbladder demonstrates a normal sonographic appearance. No biliary dilatation is seen. Fatty liver infiltration. Incidental note is made of: Simple appearing 2.6 cm left liver cyst Dictated by: Margarito Wright M.D. on 08/02/2021 at 11:37 Approved by: Margarito Wright M.D. on 08/02/2021 at 11:40
== END ==
PROVIDERS: PCP Family Medicine; Referring Provider Nurse Practitioner Family; Visit Provider Nurse Practitioner Family
DX: R10.12 Left upper quadrant pain (principal); K76.0 Fatty (change of) liver, not elsewhere classified
CPT/HCPCS: 76700

== ENCOUNTER → 2021-10-18 11:15 | Outpatient (CLI) | payer MEDICARE, OTHER, SELFPAY ==
[2019-12-10 14:06] VITALS: BMI 31.3
[2021-10-18 13:04] LABS: Alanine Aminotransferase 39 IU/L (<35); Albumin 4.6 g/dL (3.5-5.0); Albumin Globulin Ratio 1.8 (1.0-2.8); Alkaline Phosphatase 67 U/L (38-126); Aspartate Aminotransferase 37 IU/L (14-36); BUN Creatinine Ratio 18.3 (6-22); Bilirubin Total 0.5 mg/dL (0.2-1.3); Blood Urea Nitrogen 15 mg/dL (7-17); Calcium 9.8 mg/dL (8.4-10.2); Carbon Dioxide 31 mmol/L (22-32); Chloride 101 mmol/L (98-107); Cholesterol 183 mg/dL (140-199); Estimated Glomerular Filt Rate > 60.0 mL/min (>60); Globulin 2.6 g/dL (1.7-4.1); Glucose 109 mg/dL (80-110); HDL Cholesterol 56 mg/dL (40-60); HEMOLYSIS < 15 (0-50); LDL Cholesterol Calculated 98 mg/dL (<100); Potassium 4.2 mmol/L (3.4-5.1); Sodium 138 mmol/L (137-145); Total Protein 7.2 g/dL (6.3-8.2); Triglycerides 146 mg/dL (35-150)
[2021-10-19 07:09] LABS: HBsAg Screen Negative (Negative); Hepatitis A Antibody IgM Negative (Negative); Hepatitis B Core Antibody IgM Negative (Negative); Hepatitis C Antibody <0.1 s/co ratio (0.0-0.9)
== END ==
PROVIDERS: PCP Family Medicine; Referring Provider Family Medicine; Visit Provider Family Medicine
DX: E78.5 Hyperlipidemia, unspecified (principal); Z79.899 Other long term (current) drug therapy; E66.9 Obesity, unspecified; R79.89 Other specified abnormal findings of blood chemistry; R94.5 Abnormal results of liver function studies
CPT/HCPCS: 36415; 80053; 80061; 80074

== ENCOUNTER → 2021-11-01 13:42 | Outpatient (CLI) | payer MEDICARE, OTHER, SELFPAY ==
[2019-12-10 14:06] VITALS: BMI 31.3
--- NOTE | 2021-11-01 | DI.US.S_ITS ---
PROCEDURE: US EXTREMITY NONVASC LOWER LT INDICATIONS: SOFT TISSUE MASS ON HIP AREA TECHNIQUE: Real-time scanning was performed of the left posterior hip/gluteal region, with image documentation. COMPARISON: [facility], EXTREMITY NON-VASCULAR LTD, 05/25/2016, 8:53. FINDINGS: Focused ultrasound examination of left posterior hip/gluteal region at patient's reported area of palpable lump shows a 3.7 x 2.7 x 3.9 cm heterogeneously hypoechoic structure within soft tissue with internal vascularity. IMPRESSION: 3.7 x 2.7 x 3.9 cm solid lesion in left posterior hip/gluteal soft tissue and show internal vascularity. This could represent benign or malignant soft tissue neoplasm. Biopsy or excision can be done for more definitive diagnosis. Dictated by: Tree Gibbs M.D. on 11/01/2021 at 15:32 Approved by: Tree Gibbs M.D. on 11/01/2021 at 15:34
== END ==
PROVIDERS: PCP Family Medicine; Referring Provider Family Medicine; Visit Provider Family Medicine
DX: M79.89 Other specified soft tissue disorders (principal)
CPT/HCPCS: 76882

== ENCOUNTER → 2022-05-13 14:48 | Outpatient (CLI) | payer MEDICARE, OTHER, SELFPAY ==
[2019-12-10 14:06] VITALS: BMI 31.3
[2022-05-13 16:26] LABS: Add Manual Diff / Slide Review NO; Basophils Absolute Auto 100 /uL (0-100); Basophils Percent Auto 0.6 % (0-2); Eosinophils Absolute Auto 300 /uL (0-450); Eosinophils Percent Auto 2.8 % (2-4); Hematocrit 39.4 % (36-46); Hemoglobin 13.5 g/dL (12.0-16.0); Lymphocytes Absolute Auto 1700 /uL (1100-4500); Mean Corpuscular HGB Conc 34.4 % (30-36); Mean Corpuscular Hemoglobin 29.8 PG (26-34); Mean Corpuscular Volume 86.5 fL (80-100); Monocytes Absolute Auto 800 /uL (0-900); Neutrophils Absolute Auto 6200 /uL (1500-7000); Neutrophils Percent Auto 68.6 % (50-75); Platelet Count 315 X10^3/uL (150-400); Red Blood Cell Count 4.55 X10^6/uL (4.0-5.2); Red Cell Distribution Width 13.3 % (11.6-14.8)
[2022-05-13 16:35] LABS: Alanine Aminotransferase 112 IU/L (<35); Albumin 4.5 g/dL (3.5-5.0); Albumin Globulin Ratio 1.5 (1.0-2.8); Alkaline Phosphatase 73 U/L (38-126); Aspartate Aminotransferase 50 IU/L (14-36); BUN Creatinine Ratio 21.1 (6-22); Bilirubin Total 0.4 mg/dL (0.2-1.3); Blood Urea Nitrogen 15 mg/dL (7-17); Calcium 9.5 mg/dL (8.4-10.2); Carbon Dioxide 32 mmol/L (22-32); Chloride 99 mmol/L (98-107); Creatine Kinase 138 U/L (30-135); Estimated Glomerular Filt Rate > 60 mL/min (>60); Glucose 99 mg/dL (80-110); HEMOLYSIS < 15 (0-50); Potassium 4.2 mmol/L (3.4-5.1); Sodium 138 mmol/L (137-145); Total Protein 7.5 g/dL (6.3-8.2)
== END ==
PROVIDERS: PCP Family Medicine; Referring Provider Pediatrics; Visit Provider Pediatrics
DX: C80.1 Malignant (primary) neoplasm, unspecified (principal); E66.9 Obesity, unspecified; E86.0 Dehydration; T07.XXXA Unspecified multiple injuries, initial encounter
CPT/HCPCS: 36415; 80053; 82550; 85025

== ENCOUNTER 2022-07-17 11:40 | Emergency (ER) | payer MEDICARE, OTHER, SELFPAY ==
[2019-12-10 14:06] VITALS: BMI 31.3
[2022-07-17 11:54] VITALS: BP 141/65; PULSE 80; RESP 18; TEMP 36.9; O2SAT 95; BMI 39.1
--- NOTE | 2022-07-17 12:00 | DI.RAD.S_ITS ---
PROCEDURE: XR HIP W PEL IF DONE LT 2V INDICATIONS: fall/pain TECHNIQUE: AP pelvis and lateral view of the left hip acquired. COMPARISON: [facility], [facility], HIPBILAT 3TO4V W PEL IF PERFD, 08/16/2016, 11:30. FINDINGS: Bones: Patient is status post bilateral hip arthroplasty, with hardware components in expected positions. The hip joint appears congruent. The visualized bony structures appear intact. Soft tissues: Overlying postoperative changes are noted. No suspicious soft tissue densities. IMPRESSION: 1. No fracture identified. 2. Bilateral hip prostheses without evidence of hardware complication. Dictated by: Tal Rushing M.D. on 07/17/2022 at 11:31 Approved by: Tal Rushing M.D. on 07/17/2022 at 11:34
--- NOTE | 2022-07-17 15:22 | ED_ITS ---
HPI - Extremity Injury (Lower) <Lev Workman PA-C - Last Filed: 07/17/22 16:58> General Chief Complaint: Extremity Injury, Lower Stated Complaint: Real Bad Lt Hip/Fall 2 months Ago Time Seen by Provider: 07/17/22 15:21 Source: patient Mode of arrival: Wheelchair History of Present Illness HPI Narrative: Patient is an 86-year-old female who presents to the emergency room today with complaint of left-sided hip pain that started yesterday morning. States the hip pain got so bad that she stops walking with her cane is started using her walker last night. It did show a fall on May 06 where he was down in her home for few days before getting a neighbor's attention and being taken to the emergency room until healed. No x-ray was done at that time on her left hip. The pain is morning was not related to any type trauma or any activities changeover. Also admits to having back surgery [facility] on April 29 of this year with ingesting Donnie. 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 Main concern today was making sure she did not break her hip and having her pain addressed. Denies any other concerns Related Data Home Medications Medication Instructions Recorded Confirmed cholecalciferol (vitamin D3) 50 2,000 unit PO BID 04/03/18 05/13/22 mcg (2,000 unit) capsule vitamins A,C,K-axfv-bliiwq 2,148 2 tab PO BID 08/26/20 05/13/22 mcg-113 mg-45 mg-17.4 mg tablet (PreserVision AREDS) Previous Rx's Medication Instructions Recorded simvastatin 40 mg tablet (Zocor) 40 mg PO Q DAY #90 tabs 08/23/21 tolterodine 4 mg capsule,extended 4 mg PO QDAY #90 caps 08/23/21 release 24 hr (Detrol LA) Disabled Parking Permit #1 ea 02/21/22 omeprazole 20 mg capsule,delayed 20 mg PO QDAY #90 caps 02/21/22 release lorazepam 1 mg tablet 1 mg PO BID PRN anxiety #30 tabs 05/09/22 sertraline 50 mg tablet See Rx Instructions .Route 05/09/22 .COMPLEX #180 tabs dimethicone 1.3 % topical cream 1 applic topical DAILY PRN rash 05/13/22 (Cavilon Durable Barrier) #92 grams mupirocin 2 % topical ointment 1 applic topical BID #22 grams 05/13/22 nystatin-triamcinolone 100,000 1 applic topical BID PRN itching 05/13/22 unit/g-0.1 % topical cream #30 grams olanzapine 2.5 mg tablet (Zyprexa) 5 mg PO HS #180 tabs 05/17/22 amoxicillin 500 mg-potassium 1 tab PO BID cellulitis #14 tabs 05/20/22 clavulanate 125 mg tablet (Augmentin) Allergies Allergy/AdvReac Type Severity Reaction Status Date / Time digoxin [DIGOXIN] Allergy Mild LIGHTHEADED Verified 05/13/22 14:01 latex [LATEX] Allergy Mild Verified 05/13/22 14:01 silver Allergy Mild BLISTERS Verified 05/13/22 14:01 (FROM TEGADERM MESH) sulfamethoxazole Allergy Mild Rash Verified 05/13/22 14:01 [From Bactrim] trimethoprim [From Bactrim] Allergy Mild Rash Verified 05/13/22 14:01 Review of Systems <Lev Workman PA-C - Last Filed: 07/17/22 16:58> Review of Systems Narrative: R.O.S.: General: No fever, chills or fatigue. Cardiovascular: No chest pain or palpitations Respiratory: No S.O.B. HEENT: No congestion, ear pain, rhinorrhea, sore throat or tinnitus Gastrointestinal: No nausea or vomiting Skin: No rash or associated abnormalities Musculoskeletal: Left hip pain Neurological: Awake, alert and in not apparent distress. No Headaches, changes in vision or other related neurological concerns. Patient History <Lev Workman PA-C - Last Filed: 07/17/22 16:58> Medical History (Updated 07/17/22 @ 15:47 by Lev Workman PA-C) Abnormal LFTs Abrasions of multiple sites Ankle pain, left (2009) Anxiety Bipolar disorder Bronchitis Cataract (03/2014) Cellulitis Chicken pox Chronic left shoulder pain (12/25/17) Chronic lumbar radiculopathy (08/26/14) Dysphagia, pharyngeal phase Episodic mood disorder (09/05/17) Essential tremor (05/19/15) Foot pain Foot pain, left (2009) GERD (gastroesophageal reflux disease) Hyperlipidemia Hypothyroidism Internal hemorrhoids (~08/2020) Left upper quadrant pain Lumbar spinal stenosis Mumps (1967) Neuropathy Obesity (BMI 30-39.9) Pulmonary nodule less than 6 mm in diameter with low risk for malignant neoplasm (~07/2020) Relationship problem with family member Restrictive lung disease Soft tissue mass 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 Mother Dementia Grandfather Pneumonia Grandfather Dementia Daughter Depression Social History marital status: details: 07/22/2007 number of children: 1 household members: none lives independently: [facility] pets and animals: No occupational status: previously employed Smoking Status: Never smoker alcohol intake: current substance use type: does not use Smoking Status: Never smoker alcohol intake frequency: other Substance Use Type: does not use Exam <Lev Workman PA-C - Last Filed: 07/17/22 16:58> Narrative Exam Narrative: Physical Exam: ? General: normal appearance, well developed, well nourished, alert, and awake. Not in acute distress. ? Head: Normocephalic, no lesions. Chest: Lungs CTAB, no rales, rhonchi or wheezes. ?? Heart: RRR, no murmurs, rubs or gallops. Eyes: PERRLA, EOM's full, conjunctivae clear. ? Neuro: Physiological, no localizing findings, CN3-12 intact. ?? Extremities: Warm, well perfused, FROM, no deformities, no edema. ?? Skin: Normal, no rashes, no lesions noted. ?? PSYCHIATRIC: The mood is good, no blunted affect. Speech is clear. Thought process is linear, thought content is appropriate. The voice is without significant inflection. Gastrointestinal: Soft; NT; ND; Pos BS with Neg. rebound tenderness. No scars or major deformities noted on Visual Inspection. Musculoskeletal: Patient has been to palpation at the left hip area. Patient is in a wheelchair and was not able to stand for the pain in the left hip. The left hip area has no swelling or erythema noted on visual inspection. Patient able to flex the left hip and extend and flex the left leg. Left extremity has intact sensation to touch. Initial Vital Signs Initial Vital Signs: Vital Signs Temperature 98.5 F 07/17/22 11:54 Pulse Rate 80 07/17/22 11:54 Respiratory Rate 18 07/17/22 11:54 Blood Pressure 141/65 H 07/17/22 11:54 Pulse Oximetry 95 07/17/22 11:54 Oxygen Delivery Method 07/17/22 11:54 <Lydia Posada DO - Last Filed: 07/17/22 19:41> Initial Vital Signs Initial Vital Signs: Vital Signs Temperature 98.5 F 07/17/22 11:54 Pulse Rate 80 07/17/22 11:54 Respiratory Rate 18 07/17/22 11:54 Blood Pressure 141/65 H 07/17/22 11:54 Pulse Oximetry 95 07/17/22 11:54 Oxygen Delivery Method 07/17/22 11:54 Course <Lev Workman PA-C - Last Filed: 07/17/22 16:58> Orders Ordered: ED Orders 07/17/22 12:00 XR hip w pel if done LT 2V Stat Discontinued Medications Ketorolac Tromethamine (Ketorolac 30 Mg/Ml Vial) 30 mg IM NOW ONE Stop: 07/17/22 15:46 Last Admin: 07/17/22 16:17 Dose: 30 mg Documented By: ROBB Vital Signs Vital signs: Vital Signs - 8 hr 07/17/22 11:54 07/17/22 17:05 Temperature 98.5 F Pulse Rate 80 75 Respiratory Rate 18 18 Blood Pressure 141/65 H 132/61 Pulse Oximetry 95 98 Oxygen Delivery Method Room Air Room Air <Lydia Posada DO - Last Filed: 07/17/22 19:41> Orders Ordered: ED Orders 07/17/22 12:00 XR hip w pel if done LT 2V Stat Discontinued Medications Ketorolac Tromethamine (Ketorolac 30 Mg/Ml Vial) 30 mg IM NOW ONE Stop: 07/17/22 15:46 Last Admin: 07/17/22 16:17 Dose: 30 mg Documented By: RB Vital Signs Vital signs: Vital Signs - 8 hr 07/17/22 11:54 07/17/22 17:05 Temperature 98.5 F Pulse Rate 80 75 Respiratory Rate 18 18 Blood Pressure 141/65 H 132/61 Pulse Oximetry 95 98 Oxygen Delivery Method Room Air Room Air MDM - Extremity Injury (Lower) <Lev Workman PA-C - Last Filed: 07/17/22 16:58> Imaging Data Extremity x-ray #1: Radiologist's Impression: PROCEDURE:? XR HIP W PEL IF DONE LT 2V ? INDICATIONS:? fall/pain ? TECHNIQUE:? AP pelvis and lateral view of the left hip acquired.? ? COMPARISON:? [facility], , HIPBILAT 3TO4V W PEL IF PERFD, 08/16/2016, 11:30. ? FINDINGS:? ? Bones:? Patient is status post bilateral hip arthroplasty, with hardware components in expected positions.? The hip joint appears congruent.? The visualized bony structures appear intact.? ? Soft tissues:? Overlying postoperative changes are noted.? No suspicious soft tissue densities.? ? ? IMPRESSION:? 1. No fracture identified. 2. Bilateral hip prostheses without evidence of hardware complication. ? ? Dictated by: Tal Rushing M.D. on 07/17/2022 at 11:31 ? ? Approved by: Tal Rushing M.D. on 07/17/2022 at 11:34 ? [facility] Narrative Medical decision making narrative: Patient is a 86-year-old female presents to the emergency room today with complaint of left hip pain history is unknown. Also admits to having history of cancer and surgery done in April of this year. X-ray of the left hip an impression of no fracture identified. Toradol was issued initially for pain and POC urine was ordered and ruled out UTI. Patient was then referred to [facility] where she will see her provider Dr. Mary Carlton. Discharge Plan Departure Patient Disposition: Home Clinical Impression: Acute pain of left hip Instructions: DI for Hip Pain Activity Restrictions/Additional Instructions: *You have been diagnosed with pain in the left hip. X-rays were done and ruled out a fracture to her left hip urines are also done to rule out urinary tract infection. I have referred you to your orthopedic provider at [facility] and suggest to follow up with her. Also please contact your primary care provider with any non emergent concerns. [ ] *What to do: *Please continue to take your regular medications as directed. [ ] New medication prescriptions sent to your pharmacy: [ ] [ ] New medication written as a paper prescription [x] No new medications given *Please follow up with your primary care provider in 2-3 days, call for an appointment. Let them know you were seen in the Emergency Department and that we ask that you be seen in follow up. We will electronically transmit a record of today's note if your PCP is in our system *If you do not have a primary care provider please contact the [facility] Resource line at [phone]. They will ask some questions about your medical history and help get you set up with a doctor in the community. *Return to Emergency Department if you should have any new, worsening or concerning symptoms, such as [fever greater than 101 F, shaking chills, worsening pain, persistent vomiting or other bothersome symptoms] Prescriptions: No Action tolterodine [Detrol LA] 4 mg capsule,extended release 24hr 4 mg PO QDAY Qty: 90 3RF simvastatin [Zocor] 40 mg tablet 40 mg PO Q DAY Qty: 90 3RF (DME) Disabled Parking Permit See Rx Instructions .ROUTE .MEDSUPPLY Qty: 1 0RF Rx Instructions: Valid for 5 years omeprazole 20 mg capsule,delayed release(DR/EC) 20 mg PO QDAY Qty: 90 2RF lorazepam 1 mg tablet 1 mg PO BID PRN (Reason: anxiety) Qty: 30 0RF Rx Instructions: Caution regard poss sedation. sertraline 50 mg tablet See Rx Instructions .ROUTE .COMPLEX Qty: 180 0RF Dose Instruction: TAKE 2 TABLETS BY MOUTH ONCE DAILY Rx Instructions: TAKE 2 TABLETS BY MOUTH ONCE DAILY olanzapine [Zyprexa] 2.5 mg tablet 5 mg PO HS Qty: 180 3RF Hold Instructions: trial without amoxicillin-pot clavulanate [Augmentin] 500-125 mg tablet 1 tab PO BID Qty: 14 1RF Rx Instructions: Start 1 tab twice daily for 1 week if ankle worsening on cephalexin. Stop cephalexin if this antibiotic started. cholecalciferol (vitamin D3) 2,000 unit capsule 2,000 unit PO BID Cavilon Durable Barrier 1.3 % cream 1 applic topical DAILY PRN (Reason: rash) Qty: 92 4RF nystatin-triamcinolone 100,000-0.1 unit/g-% cream 1 applic topical BID PRN (Reason: itching) Qty: 30 0RF mupirocin 2 % ointment 1 applic topical BID Qty: 22 3RF PreserVision AREDS 7,160-113-100 [id number] Tablet 2 tab PO BID Referrals: Chente Cantrell MD [Primary Care Provider] - Mary Carlton MD [Physician] - Visit Report Forms: Patient Portal/API <Lydia Posada DO - Last Filed: 07/17/22 19:41> Cosign ED Attending Cosconorature Attestation: I was immediately available in the department for consultation. Documentation has been reviewed.
[2022-07-17] MEDS: KETOROLAC 30 MG/ML VIAL IM (16:17)
[2022-07-17 17:05] VITALS: BP 132/61; PULSE 75; RESP 18; O2SAT 98
== END 2022-07-17 17:22 | disposition home or self-care (01) ==
PROVIDERS: Emergency Provider Physician Assistant; PCP Pediatrics
DX: M25.552 Pain in left hip (principal)
CPT/HCPCS: 73502; 96372; 99283; J1885

== ENCOUNTER → 2022-07-19 13:11 | Outpatient (CLI) | payer MEDICARE, OTHER, SELFPAY ==
[2019-12-10 14:06] VITALS: BMI 31.3
--- NOTE | 2022-07-19 13:16 | DI.MG.S_ITS ---
BILATERAL DIGITAL SCREENING MAMMOGRAM 3D/2D WITH CAD: 07/19/2022 CLINICAL: Routine screening. Comparison is made to exams dated: 07/02/2021 mammogram, 06/22/2020 mammogram, 06/21/2019 mammogram, and 06/04/2018 mammogram - [facility]. There are scattered areas of fibroglandular density in both breasts (category b / 25%-50% glandular tissue). Current study was also evaluated with a Computer Aided Detection (CAD) system. There are benign post operative findings in the right breast. No significant masses, calcifications, or other findings are seen in either breast. There has been no significant interval change. IMPRESSION: BENIGN There is no mammographic evidence of malignancy. A 1 year screening mammogram is recommended. Based on the Tyrer Cuzick model (a risk assessment model) the patient's lifetime risk is 0.1% and her 10 year risk is 0.0%. According to the ACR, ACS, and NCCN guidelines, an annual breast MRI exam along with mammogram is recommended if the patient's lifetime risk is 20% or greater. This exam was interpreted at Station ID: [id number]. NOTE: For mammograms, a report in lay terms will be sent to the patient. Approximately 15% of breast malignancies will not be visualized mammographically. In the management of a palpable breast mass, a negative mammogram must not discourage biopsy of a clinically suspicious lesion. Electronically Signed By: Doc mon/minh:07/20/2022 09:51:50 letter sent: Normal Exam ACR BI-RADS Category 2: Benign Finding(s) [id number]
== END ==
PROVIDERS: PCP Pediatrics; Referring Provider Pediatrics; Visit Provider Pediatrics
DX: Z12.31 Encounter for screening mammogram for malignant neoplasm of breast (principal)
CPT/HCPCS: 77063; 77067

== ENCOUNTER → 2022-09-22 12:10 | Outpatient (CLI) | payer MEDICARE, OTHER, SELFPAY ==
[2019-12-10 14:06] VITALS: BMI 31.3
--- NOTE | 2022-09-22 12:12 | DI.MRI.S_ITS ---
PROCEDURE: MR LUMBAR SPINE WO CON INDICATIONS: SPINAL STENOSIS TECHNIQUE: Noncontrast sagittal T1 spin echo and T2 fast echo, sagittal STIR, and T2 fast spin echo through the lumbar spine. In cases with scoliosis, additional coronal T2 fast spin echo may be performed. COMPARISON: [facility] [place], CR, XR LUMBAR SPINE WITH OBLIQUES PLUS FLEXION EXTENSION, 09/13/2022, 11:29. [facility], MR, L-SPINE WITHOUT CONTRAST, 05/29/2014, 10:53. FINDINGS: Image quality: Excellent. Alignment and Curvature: There is 3 mm anterolisthesis of L4 on L5 and 5 mm retrolisthesis of L5 on S1. Bone Marrow: Marrow is of normal overall signal. Moderate reactive endplate changes are present at L4-5, minimal L2-3, L3-4. No acute vertebral body compression fractures. Spinal Cord: Conus medullaris terminates at the L1-2 level. Visualized cord demonstrates normal signal and size. Paraspinous Soft Tissues: No paravertebral masses. Discs: Moderate to severe multilevel disc desiccation. L1-L2: Mild disc bulge without spinal stenosis. [id number] bilateral foraminal narrowing with mild interval progression. Facet and ligamentum flavum hypertrophy are present. L2-L3: Mild disc bulge with moderate spinal stenosis, slightly progressive. Moderate to severe left and moderate right foraminal narrowing with facet and ligamentum flavum hypertrophy. Interval progression is noted. L3-L4: Mild disc bulge with severe spinal stenosis, slightly progressive. There is severe left and moderate right foraminal narrowing progressive compared to prior exam. Facet and ligamentum flavum hypertrophy are present. There is mild compression of the exiting left L3 nerve roots. L4-L5: Mild disc bulge with moderate to severe spinal stenosis, progressive. There is moderate to severe left and severe right foraminal narrowing with facet and ligamentum flavum hypertrophy, slightly progressive. L5-S1: Mild disc bulge including a right foraminal component. Moderate to severe bilateral foraminal narrowing with facet and ligamentum flavum hypertrophy. Very minimal interval progression. IMPRESSION: Multilevel degenerative changes demonstrating multi levels of interval progression. Multilevel moderate to severe foraminal narrowing predominantly secondary to facet/ligamentum flavum arthropathy most notable from L3-4 through L5-S1. Multilevel spinal stenosis most severe at L3-4 predominantly secondary to disc bulge with contributing effect of facet/ligamentum flavum arthropathy. Dictated by: Fallon Richardson M.D. on 09/22/2022 at 17:12 Approved by: Fallon Richardson M.D. on 09/22/2022 at 17:19
== END ==
PROVIDERS: PCP Family Medicine; Referring Provider Physical Medicine & Rehabilitation Pain Medicine; Visit Provider Physical Medicine & Rehabilitation Pain Medicine
DX: M48.061 Spinal stenosis, lumbar region without neurogenic claudication (principal); M47.816 Spondylosis without myelopathy or radiculopathy, lumbar region; M47.817 Spondylosis without myelopathy or radiculopathy, lumbosacral region; M48.07 Spinal stenosis, lumbosacral region; M51.36 Other intervertebral disc degeneration, lumbar region; M51.37 Other intervertebral disc degeneration, lumbosacral region
CPT/HCPCS: 72148

== ENCOUNTER 2022-11-10 13:10 | Emergency (ER) | payer MEDICARE, OTHER, SELFPAY ==
[2019-12-10 14:06] VITALS: BMI 31.3
[2022-11-10] VITALS (12 sets, daily range): BP systolic 136–177; BP diastolic 70–93; PULSE 65–90; RESP 18; TEMP 35.7; O2SAT 83–98; BMI 39.1
--- NOTE | 2022-11-10 13:24 | DI.RAD.S_ITS ---
PROCEDURE: XR CHEST 1V INDICATIONS: chest pain TECHNIQUE: One view of the chest was acquired. COMPARISON: Outside Film, CT, CT CHEST WITHOUT CONTRAST, 08/18/2022, 12:18. [facility], CR, XR CHEST 2V, 08/10/2018, 13:01. FINDINGS: Surgical changes and devices: None. Lungs and pleura: Minimal streaky bibasilar opacities favored to represent atelectasis. No focal consolidation. No pneumothorax or pleural effusion. Mediastinum: Mediastinal contours appear normal. Heart size is normal. Bones and chest wall: No suspicious bony lesions. Overlying soft tissues appear unremarkable. IMPRESSION: Minimal streaky bibasilar opacities favored to represent atelectasis. No focal consolidations. Otherwise, no acute cardiopulmonary abnormalities. Dictated by: Werner Yeager M.D. on 11/10/2022 at 14:27 Approved by: Werner Yeager M.D. on 11/10/2022 at 14:28
[2022-11-10 13:56] LABS: Add Manual Diff / Slide Review NO; Basophils Absolute Auto 0 /uL (0-100); Basophils Percent Auto 0.7 % (0-2); Eosinophils Absolute Auto 100 /uL (0-450); Eosinophils Percent Auto 1.3 % (2-4); Hemoglobin 13.2 g/dL (12.0-16.0); Lymphocytes Absolute Auto 1300 /uL (1100-4500); Lymphocytes Percent Auto 18.6 % (25-40); Mean Corpuscular HGB Conc 33.9 % (30-36); Mean Corpuscular Hemoglobin 29.2 PG (26-34); Monocytes Absolute Auto 700 /uL (0-900); Monocytes Percent Auto 9.5 % (3-14); Neutrophils Absolute Auto 5000 /uL (1500-7000); Neutrophils Percent Auto 69.9 % (50-75); Platelet Count 233 X10^3/uL (150-400); Red Blood Cell Count 4.53 X10^6/uL (4.0-5.2); White Blood Cell Count 7.2 X10^3/uL (4.5-11.0)
[2022-11-10 13:58] LABS: INR 1.1 (0.9-1.3); Prothrombin Time 12.6 SECONDS (10.1-12.7)
[2022-11-10 14:00] LABS: PTT Partial Thromboplastin Tim 31 SECONDS (26-36)
[2022-11-10 14:06] LABS: Alanine Aminotransferase 36 IU/L (<35); Albumin 4.4 g/dL (3.5-5.0); Albumin Globulin Ratio 1.5 (1.0-2.8); Alkaline Phosphatase 74 U/L (38-126); Aspartate Aminotransferase 33 IU/L (14-36); Bilirubin Total 0.4 mg/dL (0.2-1.3); Blood Urea Nitrogen 13 mg/dL (7-17); Calcium 9.4 mg/dL (8.4-10.2); Carbon Dioxide 32 mmol/L (22-32); Chloride 99 mmol/L (98-107); Creatine Kinase 105 U/L (30-135); Estimated Glomerular Filt Rate > 60 mL/min (>60); Globulin 2.9 g/dL (1.7-4.1); Glucose 93 mg/dL (80-110); HEMOLYSIS < 15 (0-50); Lipase 70 U/L (23-300); Magnesium 2.2 mg/dL (1.6-2.3); Sodium 138 mmol/L (137-145); Total Protein 7.3 g/dL (6.3-8.2)
[2022-11-10 14:16] LABS: Troponin I < 0.012 ng/mL (0.01-0.034)
[2022-11-10 14:30] LABS: CKMB % Relative Index 1.1 % (1.5-5.0); Creatine Kinase MB 1.16 ng/mL (<2.37)
--- NOTE | 2022-11-10 16:35 | ED_ITS ---
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 She is had several falls about when the time it started. She states no skin changes other than some rash underneath the left breast which she is on a topical treatment for. She denies any radiation down her legs, she states it stops at the groin, she presents today because it now wraps around to the front and 4 was only in the back. She describes it as heat to the area. She denies new weakness of her legs but states it is painful to walk around. She finds it quite difficult to get in out of bed and has been sleeping in her power lift chair which is much more comfortable and easy for her to sleep in. She denies fevers or chills. No chest pain or shortness of breath acutely. No nausea or vomiting, no diarrhea constipation, no bowel or bladder incontinence. No dysuria urgency or frequency. She states pain stops above her groin. She has seen Dr. Gomez with Orthopedic surgery for her lower back and supposed to have an epidural or injections in her back next week. She is also supposed to have a repeat CT and MRI on November 16 of the hip area and had CT MRI in August during her oncology follow-up which she states was negative. She did have a fall on where she fell to the floor because she states she is trying to get in out of her bed which is very high and she had sat and sheets and they were to slippery. She states she is ambulated today without issue. She did take Tylenol 10:00 a.m. which was helpful after several hours. She is on g abapentin 100 mg t.i.d. but no other pain medications daily. Patient had L-spine MRI in September of 2022 with multiple degenerative changes multiple levels of interval progression with moderate to severe foraminal narrowing secondary to facet/ligamentum flavum arthropathy most notably L3 through 4 and L5 through S1 as well as multiple spinal stenosis most severe at L3-4 with disc bulge with a contributing affect facet and ligamentum flavum arthropathy. Patient does not have a thoracic imaging appreciated any time recently. Patient also expresses quite a bit of anxiety about whether her [facility] [place] [facility] has reoccurred. She has an appointment with Dr. Balbuena tomorrow her primary care Related Data Home Medications Medication Instructions Recorded Confirmed cholecalciferol (vitamin D3) 50 2,000 unit PO BID 04/03/18 10/04/22 mcg (2,000 unit) capsule vitamins A,C,F-wwcm-zzjato 2,148 2 tab PO BID 08/26/20 10/04/22 mcg-113 mg-45 mg-17.4 mg tablet (PreserVision AREDS) Previous Rx's Medication Instructions Recorded Disabled Parking Permit #1 ea 02/21/22 omeprazole 20 mg capsule,delayed 20 mg PO QDAY #90 caps 02/21/22 release dimethicone 1.3 % topical cream 1 applic topical DAILY PRN rash 05/13/22 (Cavilon Durable Barrier) #92 grams mupirocin 2 % topical ointment 1 applic topical BID #22 grams 05/13/22 nystatin-triamcinolone 100,000 1 applic topical BID PRN itching 05/13/22 unit/g-0.1 % topical cream #30 grams olanzapine 2.5 mg tablet (Zyprexa) 5 mg PO HS #180 tabs 05/17/22 gabapentin 100 mg capsule 100 mg PO TID #90 caps 10/04/22 lorazepam 1 mg tablet 1 mg PO BID PRN anxiety #30 tabs 10/10/22 sertraline 100 mg tablet 100 mg PO DAILY #90 tabs 10/26/22 simvastatin 40 mg tablet See Rx Instructions .Route 10/26/22 .COMPLEX #90 tabs tolterodine 4 mg capsule,extended See Rx Instructions .Route 10/26/22 release 24 hr .COMPLEX #90 caps cephalexin 500 mg capsule 500 mg PO Q12H 10 days #20 caps 11/10/22 hydrocodone 5 mg-acetaminophen 325 1 tab PO QID PRN pain #10 tabs 11/10/22 mg tablet Allergies Allergy/AdvReac Type Severity Reaction Status Date / Time digoxin [DIGOXIN] Allergy Mild LIGHTHEADED Verified 11/10/22 13:20 latex [LATEX] Allergy Mild Verified 11/10/22 13:20 silver Allergy Mild BLISTERS Verified 11/10/22 13:20 (FROM TEGADERM MESH) sulfamethoxazole Allergy Mild Rash Verified 11/10/22 13:20 [From Bactrim] trimethoprim [From Bactrim] Allergy Mild Rash Verified 11/10/22 13:20 Review of Systems Review of Systems ROS Unobtainable: All systems reviewed & are unremarkable except as noted in HPI and below Patient History Medical History Abnormal LFTs Abrasions of multiple sites Ankle pain, left (2009) Anxiety Bipolar disorder Bronchitis Cataract (03/2014) Cellulitis Chicken pox Chronic left shoulder pain (12/25/17) Chronic lumbar radiculopathy (08/26/14) Dysphagia, pharyngeal phase Episodic mood disorder (09/05/17) Essential tremor (05/19/15) Foot pain Foot pain, left (2009) GERD (gastroesophageal reflux disease) Hyperlipidemia Hypothyroidism Internal hemorrhoids (~08/2020) Left upper quadrant pain Lumbar spinal stenosis Mumps (1966) Neuropathy Obesity (BMI 30-39.9) Peripheral neuropathy Pulmonary nodule less than 6 mm in diameter with low risk for malignant neoplasm (~07/2020) Relationship problem with family member Restrictive lung disease Soft tissue mass 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 Mother Dementia Grandfather Pneumonia Grandfather Dementia Daughter Depression Social History marital status: details: 07/22/2007 number of children: 1 household members: none lives independently: Yes housing: condominium pets and animals: No occupational status: previously employed Smoking Status: Never smoker alcohol intake: current substance use type: does not use Smoking Status: Never smoker alcohol intake frequency: other Substance Use Type: does not use Exam Narrative Exam Narrative: GENERAL: Alert and oriented x three, female in mild distress. HEENT: Head normocephalic, atraumatic, EOMI, pupils reactive, face symmetric, moist mucous membranes NECK: Supple, full range of motion CARDIOVASCULAR: Regular rate and rhythm without murmurs, rubs or gallops. No JVD. No swelling bilateral lower extremities. RESPIRATORY: Breath sounds equal bilaterally, no wheezes rales or rhonchi. No tachypnea or accessory muscle use. ABDOMEN: Soft, nontender. Normoactive bowel sounds all 4 quadrants. No guarding or rebound, rigidity, no mass : No CVA tenderness BACK: No cervical, thoracic or lumbar vertebral point tenderness. Patient does have some tenderness over the left SI joint. Patient has slightly decreased range of motion. Patient is able to sit herself up in the bed without issue. Muscle strength is 5/5 in lower extremities, patient does have some increased discomfort on the left with straight leg raise. Patient able to fully lift off the bed without issue bilaterally. DTRs are 2/4 and lower extremities. Dorsalis pedis and tibialis pulses are 2+ and lower extremities. Sensation is intact in the lower extremities. EXTREMITIES: Normal range of motion, no clubbing or edema. Neurovascularly intact NEUROLOGICAL: Cranial nerves II through XII grossly intact. Moving all extremities SKIN: Warm, dry, no petechiae, no rashes or lesions. Initial Vital Signs Initial Vital Signs: Vital Signs Temperature 96.3 F L 11/10/22 13:20 Pulse Rate 90 11/10/22 13:20 Respiratory Rate 18 11/10/22 13:20 Blood Pressure 145/80 H 11/10/22 13:20 Pulse Oximetry 97 11/10/22 13:20 Oxygen Delivery Method 11/10/22 13:20 Course Orders Ordered: ED Orders 11/10/22 13:24 XR chest 1V Stat 11/10/22 13:37 EKG-12 Lead Stat 11/10/22 13:40 Complete Blood Count AUTO DIFF Stat Comprehensive Metabolic Panel Stat Lipase Stat Magnesium Stat Partial Thromboplastin Time Stat Prothrombin Time INR Stat Troponin & CK Cardiac Panel Stat 11/10/22 17:03 CT abdomen pelvis w con Stat 11/10/22 17:25 Trop I [Troponin I] Stat 11/10/22 17:37 Urinalysis and Microscopic Stat Urine Culture Stat Discontinued Medications Hydrocodone Bitart/Acetaminophen (Hydrocodone/Acet 5/325 Tablet) 2 tab PO NOW ONE Stop: 11/10/22 17:03 Last Admin: 11/10/22 17:24 Dose: Not Given Documented By: ALEJANDRINA Cephalexin HCl (Cephalexin 250 Mg Capsule) 500 mg PO NOW ONE Stop: 11/10/22 19:24 Vital Signs Vital signs: Vital Signs - 8 hr 11/10/22 13:20 11/10/22 16:28 11/10/22 16:30 Temperature 96.3 F L Pulse Rate 90 65 Respiratory Rate 18 Blood Pressure 145/80 H 136/70 Pulse Oximetry 97 98 Oxygen Delivery Method Room Air 11/10/22 16:30 11/10/22 17:00 11/10/22 17:01 Temperature Pulse Rate 81 80 Respiratory Rate Blood Pressure 158/81 H Pulse Oximetry 96 95 Oxygen Delivery Method 11/10/22 17:01 11/10/22 17:30 11/10/22 18:00 Temperature Pulse Rate 80 78 83 Respiratory Rate Blood Pressure Pulse Oximetry 97 96 96 Oxygen Delivery Method MDM - Chest Pain Lab Data Result diagrams: 11/10/22 13:40 11/10/22 13:40 Labs: Lab Results 11/10/22 11/10/22 11/10/22 Range/Units 13:40 13:40 13:40 WBC 7.2 (4.5-11.0) X10^3/uL RBC 4.53 (4.0-5.2) X10^6/uL Hgb 13.2 (12.0-16.0) g/dL Hct 39.0 (36-46) % MCV 86.0 (80-100) fL MCH 29.2 (26-34) PG MCHC 33.9 (30-36) % RDW 14.0 (11.6-14.8) % Plt Count 233 (150-400) X10^3/uL Neut % (Auto) 69.9 (50-75) % Lymph % (Auto) 18.6 L (25-40) % Stanley % (Auto) 9.5 (3-14) % Eos % (Auto) 1.3 L (2-4) % Baso % (Auto) 0.7 (0-2) % Neut # (Auto) 5000 (4168-0565) /uL Lymph # (Auto) 1300 (8028-0925) /uL Stanley # (Auto) 700 (0-900) /uL Eos # (Auto) 100 (0-450) /uL Baso # (Auto) 0 (0-100) /uL PT 12.6 (10.1-12.7) SECONDS INR 1.1 (0.9-1.3) APTT 31 (26-36) SECONDS Sodium 138 (137-145) mmol/L Potassium 4.0 (3.4-5.1) mmol/L Chloride 99 (98-107) mmol/L Carbon Dioxide 32 (22-32) mmol/L BUN 13 (7-17) mg/dL Creatinine 0.62 (0.52-1.04) mg/dL Estimated GFR > 60 (>60) mL/min BUN/Creatinine Ratio 21.0 (6-22) Glucose 93 (80-110) mg/dL Calcium 9.4 (8.4-10.2) mg/dL Magnesium 2.2 (1.6-2.3) mg/dL Total Bilirubin 0.4 (0.2-1.3) mg/dL AST 33 (14-36) IU/L ALT 36 H (<35) IU/L Alkaline Phosphatase 74 (38-126) U/L Total Creatine Kinase 105 (30-135) U/L CK-MB (CK-2) 1.16 (<2.37) ng/mL CK-MB (CK-2) Rel Index 1.1 L (1.5-5.0) % Troponin I < 0.012 (0.01-0.034) ng/mL Total Protein 7.3 (6.3-8.2) g/dL Albumin 4.4 (3.5-5.0) g/dL Globulin 2.9 (1.7-4.1) g/dL Albumin/Globulin Ratio 1.5 (1.0-2.8) Lipase 70 (23-300) U/L Urine Color Urine Appearance Urine pH (4.5-8.0) Ur Specific Lavina (1.000-1.035) Urine Protein (Negative) Urine Glucose (UA) (Negative) g/dL Urine Ketones (NEGATIVE) Urine Occult Blood (Negative) Urine Nitrate (Negative) Urine Bilirubin (NEGATIVE) Urine Urobilinogen (0.2) E.U./dL Ur Leukocyte Esterase (NEGATIVE) Urine RBC (0-5/HPF) Urine WBC (0-5/HPF) Ur Squamous Epith Cells (0-5/HPF) Amorphous Sediment Urine Bacteria (None) Ur Culture Indicated? 11/10/22 11/10/22 Range/Units 17:25 17:37 WBC (4.5-11.0) X10^3/uL RBC (4.0-5.2) X10^6/uL Hgb (12.0-16.0) g/dL Hct (36-46) % MCV (80-100) fL MCH (26-34) PG MCHC (30-36) % RDW (11.6-14.8) % Plt Count (150-400) X10^3/uL Neut % (Auto) (50-75) % Lymph % (Auto) (25-40) % Stanley % (Auto) (3-14) % Eos % (Auto) (2-4) % Baso % (Auto) (0-2) % Neut # (Auto) (5943-3159) /uL Lymph # (Auto) (8396-7573) /uL Stanley # (Auto) (0-900) /uL Eos # (Auto) (0-450) /uL Baso # (Auto) (0-100) /uL PT (10.1-12.7) SECONDS INR (0.9-1.3) APTT (26-36) SECONDS Sodium (137-145) mmol/L Potassium (3.4-5.1) mmol/L Chloride (98-107) mmol/L Carbon Dioxide (22-32) mmol/L BUN (7-17) mg/dL Creatinine (0.52-1.04) mg/dL Estimated GFR (>60) mL/min BUN/Creatinine Ratio (6-22) Glucose (80-110) mg/dL Calcium (8.4-10.2) mg/dL Magnesium (1.6-2.3) mg/dL Total Bilirubin (0.2-1.3) mg/dL AST (14-36) IU/L ALT (<35) IU/L Alkaline Phosphatase (38-126) U/L Total Creatine Kinase (30-135) U/L CK-MB (CK-2) (<2.37) ng/mL CK-MB (CK-2) Rel Index (1.5-5.0) % Troponin I < 0.012 (0.01-0.034) ng/mL Total Protein (6.3-8.2) g/dL Albumin (3.5-5.0) g/dL Globulin (1.7-4.1) g/dL Albumin/Globulin Ratio (1.0-2.8) Lipase (23-300) U/L Urine Color Yellow Urine Appearance Clear Urine pH 6.0 (4.5-8.0) Ur Specific Lavina 1.010 (1.000-1.035) Urine Protein Negative (Negative) Urine Glucose (UA) Negative (Negative) g/dL Urine Ketones Negative (NEGATIVE) Urine Occult Blood Negative (Negative) Urine Nitrate Negative (Negative) Urine Bilirubin Negative (NEGATIVE) Urine Urobilinogen 0.2 (0.2) E.U./dL Ur Leukocyte Esterase 1+ H (NEGATIVE) Urine RBC None seen (0-5/HPF) Urine WBC 5-10/hpf H (0-5/HPF) Ur Squamous Epith Cells 0-1 /hpf (0-5/HPF) Amorphous Sediment 1+ Urine Bacteria Occasional (0-1) (None) Ur Culture Indicated? Specimen cultured Imaging Data CT scan - abdomen/pelvis: Radiologist's Impression: Close Abdomen/Pelvis CT (Signed) Beto Hoskins - 11/10/22 Chest X-Ray (Signed) Werner Yeager - 11/10/22 Lumbar Spine MRI (Signed) Fallon Richardson - 09/22/22 Mammogram Screening (Signed) Doc Fountain - 07/19/22 Hip X-Ray (Signed) Tal Rushing - 07/17/22 Lower Extremity Ultrasound (Signed) Tree Gibbs - 11/01/21 Abdomen Ultrasound (Signed) Margarito Wright - 08/02/[address] (Signed) Fallon Richardson - 07/26/21 Chest/Abdomen X-ray (Signed) Gualberto Souza - 07/15/21 Mammogram Screening (Signed) Call,Doc - 07/02/21 Vascular Ultrasound (Signed) Margarito Wright - 03/05/21 Thoracic Spine X-Ray (Signed) Godwin Burgess - 01/11/21 Pelvis X-Ray (Signed) Godwin Burgess - 01/11/[address] (Signed) Erum Velázquez - 01/11/[address] (Signed) Erum Velázquez - 01/11/21 Wrist X-Ray (Signed) Tree Gibbs - 01/11/[address] (Signed) Rosa M Zapata - 08/06/20 Mammogram Screening (Signed) Werner Yeager - 06/22/20 Ribs X-Ray (Signed) Sea Guardado - 05/04/20 PFT Result 12/04/19 Modified Barium Swallow (Signed) Gualberto Souza - 12/04/19 Mammogram Screening (Signed) Call,Doc - 06/21/19 Myocardial Perfusion Scan Nuc Med (Signed) Harshil Lux - 04/15/19 Myocardial Perfusion Scan Nuc Med (Cancelled) 04/15/19 PFT Result 01/03/19 Chest X-Ray (Signed) Tree Gibbs - 08/10/18 Chest X-Ray (Signed) Sea Guardado - 07/27/[address] (Signed) Tree Gibbs - 07/27/18 Mammogram Screening (Signed) Godwin Burgess - 06/04/18 [place] [address] CT Scan Report Signed Patient: Petty Chrsity MR#: [id number] : 1935 Acct:[id number] Age/Sex: 87 / F Date of Service: 11/10/22 Loc: ED Accession Number: [id number] ?? Procedure: CT abdomen pelvis w con Ordering Provider: Lydia Posada D.O. PROCEDURE:? CT ABDOMEN PELVIS W CON ? INDICATIONS:? Left abd pain, left breast/groin, hx back pain ? TECHNIQUE:? After the administration of intravenous contrast, axial sections acquired from the lung bases to the pubic symphysis.? Coronal and sagittal reformats were performed.? For radiation dose reduction, the following was used:? automated exposure control, adjustment of mA and/or kV according to patient size.? ? COMPARISON:? Outside Film, CT, CT CHEST WITHOUT CONTRAST, 02/04/2022, 14:23.? [facility], CT, ABDOMEN/PELVIS WITH CONTRAST, 10/14/2015, 11:08. ? FINDINGS:? Image quality: adequate ? Lung bases:? No pleural effusion ? ABDOMEN: Liver:? Diffusely hypoattenuating suggestive of fatty infiltration.? Similar nonspecific hypodensities present in segment 2 and segment 7. Gallbladder:? Unremarkable.? ? Biliary ducts:? Unremarkable.? ? Pancreas:? Unremarkable.? ? Spleen:? Unremarkable.? ? Adrenal Glands:? Unremarkable.? ? Kidneys and Ureters:? No hydronephrosis.? Possible minimal urothelial thickening and enhancement proximal left ureter ? Stomach and Bowel:? No bowel obstruction Peritoneum:? No free air or substantial free fluid ? Abdominal Nodes:? No retroperitoneal or mesenteric adenopathy by size criteria.? Vessels:? Aorta and inferior vena cava are normal in size.? ? PELVIS: Pelvic Organs:? The uterus is not visualized and is presumed surgically absent. Bladder:? Not well evaluated due to hip arthroplasty artifact Pelvic Nodes: No enlarged lymph nodes.? ? Bones:? Multilevel degenerative change of the visualized spine.? Bilateral hip arthroplasty ? ? IMPRESSION:? 1. Possible/equivocal urothelial thickening and enhancement at the proximal left ureter.? This is a nonspecific finding, correlation for evidence of urinary tract infection may be helpful. 2. Otherwise no potentially acute abnormality identified within the abdomen or pelvis.? ? ? Dictated by: Beto Hoskins M.D. on 11/10/2022 at 18:58 ? ? Approved by: Beto Hoskins M.D. on 11/10/2022 at 19:11?? ECG Data Attestation: I personally reviewed and interpreted this ECG as follows: Prior ECG tracings: available for review Interpretation: Sinus rhythm occasional PVC rate 81 MD 152 QRS of 112 and QTC 462. No acute ST elevation noted, patient has prior in 08/10/2018, no RSR AVF on prior. MDM Narrative Medical decision making narrative: This is a 87-year-old female with acute on chronic pain of her left flank and abdomen that she describes as hot on her belly. She states the change has been come to the front of her belly. She does not describe any acute neurologic changes, she has been following for lower lumbar issues and has had radiation to that area, prior sarcoma that was excised, treated with radiation and then had some additional excision of the edges in April she states she is been told she is cancer free. She is quite anxious cancer has been reoccurring, she describes the pain as a heat, she is not having other GI, urinary cardiac symptoms. EKGs and troponin are negative x2, labs are otherwise reassuring. CT abdomen pelvis was obtained to evaluate for masses, bony changes were metastatic lesions, etcetera. Patient has had gabapentin but only 100 mg t.i.d. and does not describe any radicular symptoms I would suspect that she may need to follow-up with orthopedic surgery to have more evaluation of the thoracic area she is supposed to have epidurals and interventions for her lower lumbar spine she has significant degenerative changes in that area. Patient has been ambulating in the department back and forth to the bathroom without any issue. CT does show some thickening of the bladder, changes in the kidney, urine does show leuks and changes for possible infection will start on oral antibiotics, patient does not appear septic, otherwise appears very well, discussed her pain may not actually be from the kidney infection and they are other potential causes she is to follow up with her primary care tomorrow she already has an appointment and we discussed return precautions. Discharge Plan Departure Patient Disposition: Home Clinical Impression: Abdominal pain, Acute UTI Instructions: DI for Abdominal Pain-Adult Activity Restrictions/Additional Instructions: Please follow-up with your physician as well as your orthopedic team. Your urine does show some infection and changes to the ureter. Follow up at your appointment tomorrow with Dr. Balbuena, I would about ask about increasing your gabapentin dose to see if that is helpful. Your imaging and workup today is very reassuring that there is not a recurrence of new cancer today. Can take Tylenol up to a 1000 mg every 6 hours if in adequate you can take the narcotic pain medication instead. Take antibiotics until completely gone. You can take [place] 1-2 tablets every 6 hours as needed for pain. This medication can make you sleepy do not drive, perform hazardous activities or make any major decisions while taking it. This medication will make you constipated please take a stool softener once to twice daily until stools are soft and regular. Prescription sent to [facility] in [place]. Please return for fevers, increasing abdominal pain, persistent vomiting, black or bloody stools, new numbness, weakness or loss of sensation, loss of bowel or bladder control or other new or concerning changes. Prescriptions: New hydrocodone-acetaminophen 5-325 mg tablet 1 tab PO QID PRN (Reason: pain) Qty: 10 0RF cephalexin 500 mg capsule 500 mg PO Q12H 10 Days Qty: 20 0RF No Action (DME) Disabled Parking Permit See Rx Instructions .ROUTE .MEDSUPPLY Qty: 1 0RF Rx Instructions: Valid for 5 years omeprazole 20 mg capsule,delayed release(DR/EC) 20 mg PO QDAY Qty: 90 2RF olanzapine [Zyprexa] 2.5 mg tablet 5 mg PO HS Qty: 180 3RF Hold Instructions: trial without lorazepam 1 mg tablet 1 mg PO BID PRN (Reason: anxiety) Qty: 30 0RF Rx Instructions: Caution regard poss sedation. tolterodine 4 mg capsule,extended release 24hr See Rx Instructions .ROUTE .COMPLEX Qty: 90 0RF Dose Instruction: TAKE 1 CAPSULE BY MOUTH EVERY DAY Rx Instructions: TAKE 1 CAPSULE BY MOUTH EVERY DAY simvastatin 40 mg tablet See Rx Instructions .ROUTE .COMPLEX Qty: 90 0RF Dose Instruction: TAKE 1 TABLET BY MOUTH EVERY DAY Rx Instructions: TAKE 1 TABLET BY MOUTH EVERY DAY sertraline 100 mg tablet 100 mg PO DAILY Qty: 90 0RF cholecalciferol (vitamin D3) 2,000 unit capsule 2,000 unit PO BID Cavilon Durable Barrier 1.3 % cream 1 applic topical DAILY PRN (Reason: rash) Qty: 92 4RF nystatin-triamcinolone 100,000-0.1 unit/g-% cream 1 applic topical BID PRN (Reason: itching) Qty: 30 0RF mupirocin 2 % ointment 1 applic topical BID Qty: 22 3RF gabapentin 100 mg capsule 100 mg PO TID Qty: 90 5RF PreserVision AREDS [id number] [id number] Tablet 2 tab PO BID Referrals: Ariella Boo, [Primary Care Provider] - Stand Alone Forms: Patient Portal/API
--- NOTE | 2022-11-10 17:03 | DI.CT.S_ITS ---
PROCEDURE: CT ABDOMEN PELVIS W CON INDICATIONS: Left abd pain, left breast/groin, hx back pain TECHNIQUE: After the administration of intravenous contrast, axial sections acquired from the lung bases to the pubic symphysis. Coronal and sagittal reformats were performed. For radiation dose reduction, the following was used: automated exposure control, adjustment of mA and/or kV according to patient size. COMPARISON: Outside Film, CT, CT CHEST WITHOUT CONTRAST, 02/04/2022, 14:23. [facility], CT, ABDOMEN/PELVIS WITH CONTRAST, 10/14/2015, 11:08. FINDINGS: Image quality: adequate Lung bases: No pleural effusion ABDOMEN: Liver: Diffusely hypoattenuating suggestive of fatty infiltration. Similar nonspecific hypodensities present in segment 2 and segment 7. Gallbladder: Unremarkable. Biliary ducts: Unremarkable. Pancreas: Unremarkable. Spleen: Unremarkable. Adrenal Glands: Unremarkable. Kidneys and Ureters: No hydronephrosis. Possible minimal urothelial thickening and enhancement proximal left ureter Stomach and Bowel: No bowel obstruction Peritoneum: No free air or substantial free fluid Abdominal Nodes: No retroperitoneal or mesenteric adenopathy by size criteria. Vessels: Aorta and inferior vena cava are normal in size. PELVIS: Pelvic Organs: The uterus is not visualized and is presumed surgically absent. Bladder: Not well evaluated due to hip arthroplasty artifact Pelvic Nodes: No enlarged lymph nodes. Bones: Multilevel degenerative change of the visualized spine. Bilateral hip arthroplasty IMPRESSION: 1. Possible/equivocal urothelial thickening and enhancement at the proximal left ureter. This is a nonspecific finding, correlation for evidence of urinary tract infection may be helpful. 2. Otherwise no potentially acute abnormality identified within the abdomen or pelvis. Dictated by: Beto Hoskins M.D. on 11/10/2022 at 18:58 Approved by: Beto Hoskins M.D. on 11/10/2022 at 19:11
[2022-11-10 18:03] LABS: Troponin I < 0.012 ng/mL (0.01-0.034)
[2022-11-10 18:25] LABS: Appearance Urine UA CLEAR; Bilirubin Urine UA NEGATIVE (NEGATIVE); Color Urine UA YELLOW; Glucose Urine UA NEGATIVE (Negative); Ketones Urine UA NEGATIVE (NEGATIVE); Leukocyte Esterase Urine UA 1+ (NEGATIVE); Nitrite Urine UA NEGATIVE (Negative); Occult Blood Urine UA NEGATIVE (Negative); Protein Urine UA NEGATIVE (Negative); Urobilinogen Urine UA 0.2 E.U./dL (0.2)
[2022-11-10 18:30] LABS: RBC Urine None Seen (0-5/HPF); Squamous Epithelial Cell Urine 0-1 /HPF (0-5/HPF); WBC Urine 5-10/HPF (0-5/HPF)
[2022-11-10 18:31] LABS: Amorphous Sediment Urine 1+; Bacteria Urine Occasional (0-1); Culture Indicated Urine Specimen Cultured
--- NOTE | 2022-11-10 19:26 | PC.NURSE ---
Report received - assumed care of pt at this time
[2022-11-10] MEDS: cephALEXin 250 MG CAPSULE 500 MG PO (19:31)
== END 2022-11-10 19:45 | disposition home or self-care (01) ==
PROVIDERS: Emergency Provider Emergency Medicine; PCP Family Medicine
DX: N39.0 Urinary tract infection, site not specified (principal); R10.9 Unspecified abdominal pain; F41.9 Anxiety disorder, unspecified; R07.9 Chest pain, unspecified
CPT/HCPCS: 36415; 71045; 74177; 80053; 81001; 82550; 82553; 83690; 83735; 84484; 85025; 85610; 85730; 87086; 93005; 99284; Q9967

== ENCOUNTER → 2023-01-19 10:19 | Outpatient (CLI) | payer MEDICARE, OTHER, SELFPAY ==
[2019-12-10 14:06] VITALS: BMI 31.3
[2023-01-19 11:20] LABS: Alanine Aminotransferase 39 IU/L (<35); Albumin 4.5 g/dL (3.5-5.0); Albumin Globulin Ratio 1.7 (1.0-2.8); Alkaline Phosphatase 87 U/L (38-126); Aspartate Aminotransferase 37 IU/L (14-36); BUN Creatinine Ratio 19.7 (6-22); Bilirubin Total 0.4 mg/dL (0.2-1.3); Bilirubin Unconjugated 0.2 mg/dL (0.0-1.1); Blood Urea Nitrogen 12 mg/dL (7-17); Estimated Glomerular Filt Rate > 60 mL/min (>60); Globulin 2.7 g/dL (1.7-4.1); HEMOLYSIS < 15 (0-50); Total Protein 7.2 g/dL (6.3-8.2)
== END ==
PROVIDERS: PCP Family Medicine; Referring Provider Physician Assistant Medical; Visit Provider Physician Assistant Medical
DX: B35.1 Tinea unguium (principal)
CPT/HCPCS: 36415; 80076; 82565; 84520

== ENCOUNTER → 2023-02-17 12:58 | Outpatient (CLI) | payer MEDICARE, OTHER, SELFPAY ==
[2019-12-10 14:06] VITALS: BMI 31.3
--- NOTE | 2023-02-17 12:59 | DI.US.S_ITS ---
PROCEDURE: US ABDOMEN LIMITED INDICATIONS: lump on chest hx of cancer TECHNIQUE: Real-time focused scanning was performed of the abdomen, with image documentation. Color Doppler was also utilized. COMPARISON: [facility], US, US ABDOMEN COMPLETE, 08/02/2021, 11:34. [facility], CT, CT CHEST WITHOUT CONTRAST, 02/06/2023, 10:17. FINDINGS: At the area of clinical concern region of the left medial shoulder, there is an ovoid subcutaneous nodule that demonstrates a similar echogenicity to the surrounding normal fat. No abnormal vascularity can be seen. This measures 2.2 x 1.2 x 1.7 cm. IMPRESSION: These imaging findings are most compatible with a lipoma at the site of clinical concern. Dictated by: Margarito Wright M.D. on 02/17/2023 at 13:55 Approved by: Margarito Wright M.D. on 02/17/2023 at 13:56
== END ==
PROVIDERS: PCP Family Medicine; Referring Provider Family Medicine; Visit Provider Family Medicine
DX: C80.1 Malignant (primary) neoplasm, unspecified (principal); R22.2 Localized swelling, mass and lump, trunk
CPT/HCPCS: 76705

== ENCOUNTER → 2023-03-07 15:39 | Outpatient (CLI) | payer MEDICARE, OTHER, SELFPAY ==
[2019-12-10 14:06] VITALS: BMI 31.3
[2023-03-07 16:38] LABS: Alanine Aminotransferase 36 IU/L (<35); Albumin 4.6 g/dL (3.5-5.0); Albumin Globulin Ratio 1.5 (1.0-2.8); Alkaline Phosphatase 78 U/L (38-126); Aspartate Aminotransferase 33 IU/L (14-36); BUN Creatinine Ratio 16.2 (6-22); Bilirubin Total 0.3 mg/dL (0.2-1.3); Bilirubin Unconjugated 0.2 mg/dL (0.0-1.1); Blood Urea Nitrogen 12 mg/dL (7-17); Estimated Glomerular Filt Rate > 60 mL/min (>60); HEMOLYSIS < 15 (0-50); Total Protein 7.6 g/dL (6.3-8.2)
== END ==
PROVIDERS: PCP Family Medicine; Referring Provider Physician Assistant Medical; Visit Provider Physician Assistant Medical
DX: B35.1 Tinea unguium (principal)
CPT/HCPCS: 36415; 80076; 82565; 84520

== ENCOUNTER 2023-03-20 11:47 | Emergency (ER) | payer MEDICARE, OTHER, SELFPAY ==
[2019-12-10 14:06] VITALS: BMI 31.3
[2023-03-20 12:09] VITALS: BP 130/61; PULSE 74; RESP 18; TEMP 36.9; O2SAT 94; BMI 41.1
[2023-03-20 14:03] VITALS: BP 121/81; PULSE 78; O2SAT 96
--- NOTE | 2023-03-20 14:09 | DI.RAD.S_ITS ---
PROCEDURE: XR LUMBAR SPINE 2-3V INDICATIONS: fall backwards one step, pain lumbar spine TECHNIQUE: 3 views of the lumbar spine were acquired. COMPARISON: None. FINDINGS: Bones: 5 vow-rad-zidaicn vertebrae are present. There is leftward scoliotic curvature. Multilevel degenerative changes are present including disc and foraminal narrowing most severe at L4-5 and L5-S1. No vertebral body compression fractures. No suspicious bony lesions. Bilateral hip arthroplasties. Soft tissues: Overlying bowel gas pattern is normal. No suspicious soft tissue calcifications. IMPRESSION: No visualized acute fracture or dislocation. However, if clinical concern and/or pain persist, short interval imaging followup in 7-10 days is recommended, as occult injury cannot be definitively excluded. Dictated by: Fallon Richardson M.D. on 03/20/2023 at 14:58 Approved by: Fallon Rihcardson M.D. on 03/20/2023 at 14:58
[2023-03-20 15:56] VITALS: BP 146/86; PULSE 76; O2SAT 97
[2023-03-20] MEDS: LIDOCAINE PATCH 1 EACH ADH..PATCH 2 EACH TOP (15:58)
--- NOTE | 2023-03-21 20:40 | ED.BACK ---
HPI - Back Pain/Injury <Kay Juarez PA-C - Last Filed: 03/21/23 20:46> General Chief Complaint: Back Pain/Injury Stated Complaint: fall on back in the garden Sat morning Time Seen by Provider: 03/20/23 14:23 Source: patient History of Present Illness HPI Narrative: 87-year-old female presents to the ED status post a mechanical fall sustained at home 3 days prior to arrival. EMS arrived on the scene to help patient up, however she was able to walk once she was helped up and declined medical care at that time. Patient states that her back has gotten increasingly more sore over the last 3 days and came into the ED today. Patient denies numbness, tingling, weakness. Patient denies urinary difficulties including urinary hesitancy, urinary incontinence or stool incontinence. Related Data Home Medications Medication Instructions Recorded Confirmed cholecalciferol (vitamin D3) 50 2,000 unit PO BID 04/03/18 02/17/23 mcg (2,000 unit) capsule vitamins A,C,Y-yqoj-eadcgr 2,148 2 tab PO BID 08/26/20 02/17/23 mcg-113 mg-45 mg-17.4 mg tablet (PreserVision AREDS) Previous Rx's Medication Instructions Recorded Disabled Parking Permit #1 ea 02/21/22 dimethicone 1.3 % topical cream 1 applic topical DAILY PRN rash 05/13/22 (Cavilon Durable Barrier) #92 grams mupirocin 2 % topical ointment 1 applic topical BID #22 grams 05/13/22 nystatin-triamcinolone 100,000 1 applic topical BID PRN itching 05/13/22 unit/g-0.1 % topical cream #30 grams olanzapine 2.5 mg tablet (Zyprexa) 5 mg PO HS #180 tabs 05/17/22 omeprazole 20 mg capsule,delayed 20 mg PO QDAY #90 caps 01/24/23 release simvastatin 40 mg tablet See Rx Instructions .Route 01/24/23 .COMPLEX #90 tabs tolterodine 4 mg capsule,extended See Rx Instructions .Route 01/24/23 release 24 hr .COMPLEX #90 caps sertraline 100 mg tablet 100 mg PO DAILY #90 tabs 02/10/23 lorazepam 0.5 mg tablet 0.5 mg PO BEDTIME PRN anxiety 02/17/23 causing insomnia #45 tabs Allergies Allergy/AdvReac Type Severity Reaction Status Date / Time digoxin [DIGOXIN] Allergy Mild LIGHTHEADED Verified 03/20/23 12:14 latex [LATEX] Allergy Mild Verified 03/20/23 12:14 silver Allergy Mild BLISTERS Verified 03/20/23 12:14 (FROM TEGADERM MESH) sulfamethoxazole Allergy Mild Rash Verified 03/20/23 12:14 [From Bactrim] trimethoprim [From Bactrim] Allergy Mild Rash Verified 03/20/23 12:14 Review of Systems <Kay Juarez PA-C - Last Filed: 03/21/23 20:46> Review of Systems ROS Unobtainable: All systems reviewed & are unremarkable except as noted in HPI and below Constitutional Constitutional: Denies chills, Denies fatigue, Denies fever(s), Denies frequent falls, Denies lethargy and Denies weakness Eyes Eyes: Denies change in vision, Denies eye discharge, Denies irritation and Denies loss of vision ENT Ears, Nose, Mouth, and Throat: Denies change in voice, Denies dizziness, Denies neck pain, Denies sore throat and Denies throat swelling Cardiovascular Cardiovascular: Denies chest pain, Denies irregular heart rhythm, Denies lightheadedness, Denies palpitations, Denies dyspnea, Denies dyspnea on exertion and Denies orthopnea Respiratory Respiratory: Denies cough, Denies dyspnea, Denies dyspnea on exertion and Denies wheezing Gastrointestinal Gastrointestinal: Denies abdominal pain, Denies change in bowel habits, Denies diarrhea, Denies nausea and Denies vomiting Genitourinary Genitourinary: Denies hematuria, Denies flank pain, Denies urinary incontinence and Denies urinary urgency Musculoskeletal Musculoskeletal: Reports back pain, Denies muscle weakness, Denies neck pain, Denies numbness and Denies tingling Integumentary/Breasts Skin/Breast: Denies pruritus, Denies erythema, Denies rash and Denies wounds Neurologic Neurologic: Denies behavioral changes, Denies confusion, Denies dizziness, Denies frequent falls, Denies loss of vision, Denies numbness, Denies tingling and Denies weakness Psychiatric Psychiatric: Denies anxiety, Denies behavioral changes, Denies confusion, Denies depression, Denies homicidal ideation and Denies suicidal ideation Endocrine Endocrine: Denies fatigue, Denies flushing and Denies palpitations Hematologic/Lymphatic Hematologic/Lymphatic: Denies easy bruising Allergic/Immunologic Allergic/Immunologic: Denies urticaria, Denies throat swelling and Denies wheezing Patient History <Kay Juarez PA-C - Last Filed: 03/21/23 20:46> Medical History Abnormal LFTs Abrasions of multiple sites Ankle pain, left (2009) Anxiety Bipolar disorder Bronchitis Cataract (03/2014) Cellulitis Chicken pox Chronic left shoulder pain (12/25/17) Chronic lumbar radiculopathy (08/26/14) Dysphagia, pharyngeal phase Episodic mood disorder (09/05/17) Essential tremor (05/19/15) Foot pain Foot pain, left (2009) GERD (gastroesophageal reflux disease) Hyperlipidemia Hypothyroidism Internal hemorrhoids (~08/2020) Left upper quadrant pain Lumbar spinal stenosis Mumps (1966) Neuropathy Obesity (BMI 30-39.9) Peripheral neuropathy Pulmonary nodule less than 6 mm in diameter with low risk for malignant neoplasm (~07/2020) Relationship problem with family member Restrictive lung disease Soft tissue mass 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 Mother Dementia Grandfather Pneumonia Grandfather Dementia Daughter Depression Social History marital status: details: 07/22/2007 number of children: 1 household members: none lives independently: Yes housing: condominium pets and animals: No occupational status: previously employed Smoking Status: Never smoker alcohol intake: current substance use type: does not use Smoking Status: Never smoker alcohol intake frequency: other Substance Use Type: does not use Exam <NATE Youssef Last Filed: 03/21/23 20:46> Narrative Exam Narrative: Const General:?cooperative, healthy appearing and comfortable [facility] Head:?normal to inspection Ears:?hearing grossly normal bilaterally Nose:?external nose normal Face and sinus:?normal facial exam and sinuses nontender Mouth:?oral mucosae normal Throat:?posterior oropharynx normal Eyes General:?appearance normal, both eyes and all related structures Neck Neck:?normal visual inspection and no lymphadenopathy noted Resp Effort & Inspection:?normal respiratory effort Auscultation:?clear to auscultation bilaterally Cardio Rate:?regular rate Rhythm:?regular rhythm Musculoskeletal There is no midline tenderness to palpation. There is no paraspinal tenderness to palpation. Patient is able to stand up and walk with her cane. Patient is neurovascularly intact. Neuro General:?patient alert, patient awake and patient oriented x3 Initial Vital Signs Initial Vital Signs: Vital Signs Temperature 98.4 F 03/20/23 12:09 Pulse Rate 74 03/20/23 12:09 Respiratory Rate 18 03/20/23 12:09 Blood Pressure 130/61 03/20/23 12:09 Pulse Oximetry 94 03/20/23 12:09 Oxygen Delivery Method Room Air 03/20/23 12:09 <DO Carol Otoole Last Filed: 03/24/23 04:02> Initial Vital Signs Initial Vital Signs: Vital Signs Temperature 98.4 F 03/20/23 12:09 Pulse Rate 74 03/20/23 12:09 Respiratory Rate 18 03/20/23 12:09 Blood Pressure 130/61 03/20/23 12:09 Pulse Oximetry 94 03/20/23 12:09 Oxygen Delivery Method Room Air 03/20/23 12:09 Course <Kay Juarez PA-C - Last Filed: 03/21/23 20:46> Orders Ordered: Discontinued Medications Lidocaine (Lidocaine Patch 1 Each Adh..Patch) 2 each TOP NOW ONE Stop: 03/20/23 15:48 Last Admin: 03/20/23 15:58 Dose: 2 each Documented By: KM <DO Carol Otoole Last Filed: 03/24/23 04:02> Orders Ordered: Discontinued Medications Lidocaine (Lidocaine Patch 1 Each Adh..Patch) 2 each TOP NOW ONE Stop: 03/20/23 15:48 Last Admin: 03/20/23 15:58 Dose: 2 each Documented By: ANGELO CONTRERAS - Back Pain/Injury <Kay Juarez PA-C - Last Filed: 03/21/23 20:46> MDM Narrative Medical decision making narrative: 87-year-old female presents to the ED status post a mechanical fall sustained at home 3 days prior to arrival. CT lumbar spine was obtained to rule out fracture/dislocation. Lidocaine patches were applied to the lower back. Patient's symptoms likely due to a musculoskeletal sprain/strain. Supportive measures discussed with patient. Patient agrees to follow-up with her PCP as soon as possible. ED return precautions were discussed with patient. Patient verbalized understanding. Medical records reviewed: Yes Discharge Plan Departure Patient Disposition: Home Clinical Impression: Back pain Instructions: DI for Low Back Pain Activity Restrictions/Additional Instructions: You were evaluated in the ED today for low back pain. Your CT did not show any fractures or dislocations. Your symptoms are likely due to a musculoskeletal sprain/strain. You may continue to take Tylenol, apply lidocaine patches (salonpas), apply heating pads. Please follow-up with your primary care doctor in 2-3 days. Return to the ED if your symptoms worsen, you have urinary difficulties, you experience numbness, tingling, weakness. Prescriptions: No Action (DME) Disabled Parking Permit See Rx Instructions .ROUTE .MEDSUPPLY Qty: 1 0RF Rx Instructions: Valid for 5 years olanzapine [Zyprexa] 2.5 mg tablet 5 mg PO HS Qty: 180 3RF Hold Instructions: trial without omeprazole 20 mg capsule,delayed release(DR/EC) 20 mg PO QDAY Qty: 90 2RF tolterodine 4 mg capsule,extended release 24hr See Rx Instructions .ROUTE .COMPLEX Qty: 90 0RF Dose Instruction: TAKE 1 CAPSULE BY MOUTH EVERY DAY Rx Instructions: TAKE 1 CAPSULE BY MOUTH EVERY DAY simvastatin 40 mg tablet See Rx Instructions .ROUTE .COMPLEX Qty: 90 0RF Dose Instruction: TAKE 1 TABLET BY MOUTH EVERY DAY Rx Instructions: TAKE 1 TABLET BY MOUTH EVERY DAY sertraline 100 mg tablet 100 mg PO DAILY Qty: 90 0RF cholecalciferol (vitamin D3) 2,000 unit capsule 2,000 unit PO BID Cavilon Durable Barrier 1.3 % cream 1 applic topical DAILY PRN (Reason: rash) Qty: 92 4RF nystatin-triamcinolone 100,000-0.1 unit/g-% cream 1 applic topical BID PRN (Reason: itching) Qty: 30 0RF mupirocin 2 % ointment 1 applic topical BID Qty: 22 3RF lorazepam 0.5 mg tablet 0.5 mg PO BEDTIME PRN (Reason: anxiety causing insomnia) Qty: 45 0RF PreserVision AREDS [id number] Tablet 2 tab PO BID Referrals: Ariella Boo DO [Primary Care Provider] - Stand Alone Forms: Patient Portal/API <Pratima Sutherland DO - Last Filed: 03/24/23 04:02> Cosign ED Attending Veeature Attestation: I was immediately available in the department for consultation. Documentation has been reviewed.
== END 2023-03-20 16:06 | disposition home or self-care (01) ==
PROVIDERS: Emergency Provider Student in an Organized Health Care Education/Training Program; PCP Family Medicine
DX: M54.9 Dorsalgia, unspecified (principal); B35.1 Tinea unguium
CPT/HCPCS: 36415; 72100; 80076; 82565; 84520; 99283; 99284

== ENCOUNTER → 2023-03-20 16:14 | Outpatient (CLI) | payer MEDICARE, OTHER, SELFPAY ==
[2019-12-10 14:06] VITALS: BMI 31.3
[2023-03-20 17:55] LABS: Alanine Aminotransferase 37 IU/L (<35); Albumin 4.4 g/dL (3.5-5.0); Albumin Globulin Ratio 1.6 (1.0-2.8); Alkaline Phosphatase 81 U/L (38-126); Aspartate Aminotransferase 33 IU/L (14-36); BUN Creatinine Ratio 18.8 (6-22); Bilirubin Total 0.4 mg/dL (0.2-1.3); Bilirubin Unconjugated 0.3 mg/dL (0.0-1.1); Blood Urea Nitrogen 13 mg/dL (7-17); Estimated Glomerular Filt Rate > 60 mL/min (>60); Globulin 2.7 g/dL (1.7-4.1); HEMOLYSIS < 15 (0-50); Total Protein 7.1 g/dL (6.3-8.2)
== END ==
PROVIDERS: PCP Family Medicine; Referring Provider Physician Assistant Medical; Visit Provider Physician Assistant Medical
DX: B35.1 Tinea unguium (principal)
CPT/HCPCS: 36415; 80076; 82565; 84520

== ENCOUNTER → 2023-04-11 15:20 | Outpatient (CLI) | payer MEDICARE, OTHER, SELFPAY ==
[2023-03-30 14:39] VITALS: BMI 31.3
--- NOTE | 2023-04-11 15:22 | DI.US.S_ITS ---
PROCEDURE: US PERIPH VENOUS LOW EXTREM BI INDICATIONS: BILAT PAIN TECHNIQUE: Real-time imaging, as well as color and pulse Doppler interrogation, were performed of the deep veins of both legs from the inguinal ligament to the popliteal fossa. COMPARISON: None. FINDINGS: Right: The common femoral, femoral and popliteal veins are normally compressible, and free of intraluminal thrombus. Color and pulse Doppler demonstrate normal phasic intravascular flow. There is normal augmentation response to distal compression maneuver. Left: The common femoral, femoral and popliteal veins are normally compressible, and free of intraluminal thrombus. Color and pulse Doppler demonstrate normal phasic intravascular flow. There is normal augmentation response to distal compression maneuver. IMPRESSION: No evidence of deep vein thrombosis involving either the right or left lower extremities. Dictated by: Nelsy Murrieta MD, PhD on 04/11/2023 at 16:04 Approved by: Nelsy Murrieta MD, PhD on 04/11/2023 at 16:05
== END ==
PROVIDERS: PCP Family Medicine; Referring Provider Anesthesiology; Visit Provider Anesthesiology
DX: M79.661 Pain in right lower leg (principal); M79.662 Pain in left lower leg; M47.816 Spondylosis without myelopathy or radiculopathy, lumbar region; M54.16 Radiculopathy, lumbar region; Z68.41 Body mass index [BMI] 40.0-44.9, adult
CPT/HCPCS: 93970; 99214

== ENCOUNTER → 2023-05-06 12:08 | Outpatient (CLI) | payer MEDICARE, OTHER, SELFPAY ==
[2023-03-30 14:39] VITALS: BMI 31.3
--- NOTE | 2023-05-06 12:11 | DI.RAD.S_ITS ---
PROCEDURE: XR THORACIC SPINE 3V INDICATIONS: h/o spindle cell carcinoma TECHNIQUE: 3 views of the thoracic spine were acquired. COMPARISON: [facility], CR, XR THORACIC SPINE 2V, 01/11/2021, 15:08. FINDINGS: Bones: No fractures or dislocations. No suspicious bony lesions. 12 pairs of ribs are noted, and appear intact where visualized. S shaped curvature of the thoracolumbar spine. Soft tissues: No paravertebral stripe thickening. IMPRESSION: No acute abnormality of the thoracic spine. Dictated by: Roly Hopkins M.D. on 05/06/2023 at 13:04 Approved by: Roly Hopkins M.D. on 05/06/2023 at 13:11
== END ==
PROVIDERS: PCP Family Medicine; Referring Provider Anesthesiology; Visit Provider Anesthesiology
DX: C80.1 Malignant (primary) neoplasm, unspecified (principal); M54.14 Radiculopathy, thoracic region; M54.6 Pain in thoracic spine
CPT/HCPCS: 72072

== ENCOUNTER 2023-07-12 10:25 | Outpatient (CLI) | payer MEDICARE, OTHER, SELFPAY ==
[2023-03-30 14:39] VITALS: BMI 31.3
[2023-07-12] VITALS (8 sets, daily range): BP systolic 134–186; BP diastolic 71–103; PULSE 72–85; RESP 15–31; TEMP 36.5; O2SAT 92–97
--- NOTE | 2023-07-12 10:26 | DI.RAD.S_ITS ---
PROCEDURE: PAIN C/T INTERLAMINAR INJECT INDICATIONS: RADICULOPATHY COMPARISON: None. FINDINGS: Fluoroscopic spot filming was performed to verify placement of spinal needles at the lower thoracic spine. Exact level cannot be definitively determined based on the images given. level(s), as labeled on the films. Appropriate location(s) of the needle tip(s) was confirmed by injection of iodinated contrast. IMPRESSION: Fluoro guidance was provided intraoperatively for T9-10 intralaminar epidural steroid injection performed by ordering physician. Dictated by: Tree Gibbs M.D. on 07/12/2023 at 12:53 Approved by: Tree Gibbs M.D. on 07/12/2023 at 12:54
[2023-07-12] MEDS: MIDAZOLAM 2 MG/2 ML VIAL 1 MG IV (11:28)
[2023-07-12] MEDS: IOPAMIDOL 15 ML VIAL 3 ML INJ (11:34)
[2023-07-12] MEDS: DEXAMETHASONE 10 MG/ML VIAL INJ (11:34)
--- NOTE | 2023-07-12 12:15 | P.PCN_ITS ---
Date/Time/Diagnoses Date of procedure: 07/12/23 Time of procedure: 11:00 Procedure Notes Physician: Rajiv Yoder Total Fluoroscopy time (seconds): 18 Total sedation minutes: 10 Procedure in detail & Post-procedure care: T9-10 Interlaminar Epidural Steroid Injection Indications: Petty is presenting for treatment of thoracic radiculopathy with thoracic back/flank pain. Preoperative diagnosis: Thoracic radiculopathy Postoperative diagnosis: Same Focused Examination: Ax3 Mood and affect are normal Vital Signs: VSS ASA: 3 Consent: Following review of allergies and potential side effects/complications, including, but not necessarily limited to, infection, allergic reaction, local tissue breakdown, stroke, temporary or permanent nerve injury, paralysis, and possible , the patient indicated that they understood and agreed to pr oceed.? An informed consent document was signed by the patient, witnessed by a nurse and placed in the patient's chart.? Additionally, other treatment options including medications and physical therapy were reviewed with the patient. All questions were answered. Site was then marked. Anesthesia: After review of previous anesthetic history and IV conscious sedation, the patient was deemed safe to proceed with today's procedure with IV conscious sedation. IV sedation was accomplished with midazolam 1 mg administered by the RN after order by Dr. Yoder. Sedation was titrated to patient comfort during the course of the procedure. Patient remained responsive to all verbal commands. Position: Prone Monitoring: NIBP, Pulse oximetry, 3 lead EKG Needle used: 18 G 3.5? Tuohy Contrast: Isovue 300M Injectate: Dexamethasone 10 mg with 1% lidocaine 2 mL Technique: The skin was prepped with chloraprep and then draped in a sterile fashion. Time out was performed as per protocol. Oxygen applied via NC. Skin and subcutaneous structures of the needle entry site was then infiltrated with 3 mL of lidocaine 1%. Under AP, lateral and contralateral oblique fluoroscopic control, the Tuohy needle was guided into the T9-10 epidural space. The space was accessed with loss of resistance technique. Isovue 300M was then injected and the spread was consistent with the epidural space. There was no evidence for intravascular or intrathecal uptake. After negative aspiration, the above- mentioned injectate was then slowly administered and the needle withdrawn. The patient expressed no unusual discomfort or paresthesias during the injection. Band-Aids applied to injection sites. EBL: less than 1 ml Complications: None Post Procedure: Patient was taken to the recovery and monitored. The patient was provided a Pain Log to continue to record the patient's response to the target- specific procedure prior to the patient's follow-up visit with the referring physician. Patient was stable upon discharge. Detailed post procedure instructions were provided. Patient was asked to call in the event of worsening pain, fever, weakness, numbness or bladder or bowel incontinence
== END 2023-07-12 12:05 | disposition home or self-care (01) ==
LOC: RAD 10:26
PROVIDERS: PCP Family Medicine; Referring Provider Anesthesiology; Visit Provider Anesthesiology
DX: M54.14 Radiculopathy, thoracic region (principal)
CPT/HCPCS: 62321; 99152; J1100; J2250

== ENCOUNTER 2023-07-29 10:46 | Emergency (ER) | payer MEDICARE, OTHER, SELFPAY ==
[2023-03-30 14:39] VITALS: BMI 31.3
[2023-07-29 10:47] VITALS: BP 142/66; PULSE 82; RESP 24; TEMP 36.7; O2SAT 92; BMI 37.5
[2023-07-29 10:51] VITALS: PULSE 84; O2SAT 91
[2023-07-29 10:52] VITALS: BP 142/66; PULSE 84; O2SAT 90
--- NOTE | 2023-07-29 11:02 | DI.RAD.S_ITS ---
PROCEDURE: XR PELVIS 1-2V INDICATIONS: Bilateral hip pain after fall TECHNIQUE: 1 view(s) of the pelvis acquired. COMPARISON: [facility], CR, XR PELVIS WITH LATERAL HIP LEFT, 07/24/2023, 10:20. [facility], CR, XR PELVIS 1-2V, 01/11/2021, 15:08. FINDINGS: Bones: No fractures or dislocations. No suspicious bony lesions. Bilateral hip arthroplasty hardware is seen, which is partially visualized. At least moderate lumbar spine degenerative change is seen. Soft tissues: Visualized bowel gas pattern is normal. No suspicious soft tissue calcifications. IMPRESSION: No erin acute fracture can be seen on this single view study. Partially visualized bilateral hip arthroplasty hardware. At least moderate lumbar spine degenerative change is seen. Dictated by: Margarito Wright M.D. on 07/29/2023 at 10:32 Approved by: Margarito Wright M.D. on 07/29/2023 at 10:33
--- NOTE | 2023-07-29 11:02 | ED.FALL ---
HPI - Fall General Chief Complaint: Fall Stated Complaint: fall, hip pain Time Seen by Provider: 07/29/23 10:54 Source: patient Mode of arrival: Wheelchair Limitations: no limitations History of Present Illness HPI Narrative: Patient is an 87-year-old female. Not on anticoagulation. States last evening she was walking into the kitchen. She had her cane in her left hand. 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 She states she initially had a difficult time getting up. Able to contact a friend. EMS was also contacted. She was able to walk afterwards. They advised that she come to the emergency department last evening but she did not want to come. Today she was having some pain to both of her hips. No upper extremity pain. No neck pain. Related Data Home Medications Medication Instructions Recorded Confirmed cholecalciferol (vitamin D3) 50 2,000 unit PO BID 04/03/18 07/28/23 mcg (2,000 unit) capsule vitamins A,C,F-oyry-xqmxpu 2,148 2 tab PO BID 08/26/20 07/28/23 mcg-113 mg-45 mg-17.4 mg tablet (PreserVision AREDS) neomycin 3.5 mg/g-polymyxin B 1 applic EYE-LEFT 03/24/23 07/28/23 10,000 unit/g-dexameth 0.1 % eye oint Previous Rx's Medication Instructions Recorded Disabled Parking Permit #1 ea 02/21/22 dimethicone 1.3 % topical cream 1 applic topical DAILY PRN rash 05/13/22 (Cavilon Durable Barrier) #92 grams mupirocin 2 % topical ointment 1 applic topical BID #22 grams 05/13/22 omeprazole 20 mg capsule,delayed 20 mg PO QDAY #90 caps 01/24/23 release tolterodine 4 mg capsule,extended See Rx Instructions .Route 01/24/23 release 24 hr .COMPLEX #90 caps diazepam 5 mg tablet 5 mg PO ONCE PRN anxiety #1 tab 04/25/23 oxybutynin chloride 15 mg See Rx Instructions .Route 04/26/23 tablet,extended release 24 hr .COMPLEX #90 tabs simvastatin 40 mg tablet See Rx Instructions .Route 05/01/23 .COMPLEX #90 tabs olanzapine 5 mg tablet 5 mg PO BEDTIME #90 tabs 06/19/23 pregabalin 50 mg capsule 50 mg PO TID #90 caps 07/27/23 lorazepam 0.5 mg tablet 0.5 mg PO BEDTIME PRN anxiety 07/28/23 causing insomnia #45 tabs sertraline 100 mg tablet 150 mg PO DAILY #135 tabs 07/28/23 Allergies Allergy/AdvReac Type Severity Reaction Status Date / Time digoxin [DIGOXIN] Allergy Mild LIGHTHEADED Verified 07/29/23 10:55 latex [LATEX] Allergy Mild Verified 07/29/23 10:55 silver Allergy Mild BLISTERS Verified 07/29/23 10:55 (FROM TEGADERM MESH) sulfamethoxazole Allergy Mild Rash Verified 07/29/23 10:55 [From Bactrim] trimethoprim [From Bactrim] Allergy Mild Rash Verified 07/29/23 10:55 Review of Systems Constitutional Constitutional: Reports system reviewed and no additional complaints, except as documented Musculoskeletal Musculoskeletal: Reports system reviewed and no additional complaints, except as documented Integumentary/Breasts Skin/Breast: Reports system reviewed and no additional complaints, except as documented Neurologic Neurologic: Reports system reviewed and no additional complaints, except as documented Hematologic/Lymphatic On Anticoagulants: No Patient History Medical History Abnormal LFTs Abrasions of multiple sites Ankle pain, left (2009) Anxiety Bilateral calf pain Bipolar disorder Bronchitis Cataract (03/2014) Cellulitis Chicken pox Chronic left shoulder pain (12/25/17) Chronic lumbar radiculopathy (08/26/14) Dysphagia, pharyngeal phase Episodic mood disorder (09/05/17) Essential tremor (05/19/15) Foot pain Foot pain, left (2009) GERD (gastroesophageal reflux disease) Hyperlipidemia Hypothyroidism Internal hemorrhoids (~08/2020) Left upper quadrant pain Lumbar radiculopathy Lumbar spinal stenosis Lumbar spondylosis Mumps (1966) Neuropathy Obesity (BMI 30-39.9) Peripheral neuropathy Pulmonary nodule less than 6 mm in diameter with low risk for malignant neoplasm (~07/2020) Relationship problem with family member Restrictive lung disease Soft tissue mass 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) Thoracic back pain Thoracic radiculopathy Tinnitus (~2014) Urge incontinence of urine (05/14/15) Urinary incontinence (2004) Surgical History Anesthesia H/O abdominal surgery (03/2007) History of esophagogastroduodenoscopy (EGD) (~03/2016) History of hip replacement (1996) History of hip replacement (2001) History of partial knee replacement (2003) History of partial knee replacement (2007) History of vaginal surgery (~2008) Status post hysterectomy with oophorectomy (1969) Family History Father Heart disease Pulmonary embolism Grandmother Heart disease Heart attack Sister Cancer Melanoma Grandmother No problems noted. Mother Dementia Grandfather Pneumonia Grandfather Dementia Daughter Depression Social History marital status: details: 07/22/2007 number of children: 1 household members: none lives independently: Yes housing: [facility] pets and animals: No occupational status: previously employed Smoking Status: Never smoker alcohol intake: current substance use type: does not use Smoking Status: Never smoker alcohol intake frequency: other Substance Use Type: does not use Exam Initial Vital Signs Initial Vital Signs: Vital Signs Temperature 98.0 F 07/29/23 10:47 Pulse Rate 82 07/29/23 10:47 Respiratory Rate 24 07/29/23 10:47 Blood Pressure 142/66 H 07/29/23 10:47 Pulse Oximetry 92 07/29/23 10:47 Oxygen Delivery Method Room Air 07/29/23 10:47 HENMT Head: normal to inspection and normocephalic Resp Effort & Inspection: normal respiratory effort Auscultation: clear to auscultation bilaterally Cardio Rate: regular rate Rhythm: regular rhythm Skin General: no rashes or lesions noted Extrem Other: Full range of motion of upper extremities. She does have a knee brace on her left knee from a prior injury. Her ankles are unremarkable. Patient can flex and extend at the hips. Has discomfort with palpation of both the left and right greater trochanter. Scores GCS [place] coma scale eye opening: Spontaneous Alexa coma scale verbal response: Orientated [place] coma scale motor response: Obey commands [place] coma scale total score: 15 Course Orders Ordered: ED Orders 07/29/23 11:02 XR pelvis 1-2V Stat Vital Signs Vital signs: Vital Signs - 8 hr 07/29/23 10:47 07/29/23 10:51 07/29/23 10:52 Temperature 98.0 F Pulse Rate 82 84 Respiratory Rate 24 Blood Pressure 142/66 H 142/66 H Pulse Oximetry 92 91 Oxygen Delivery Method Room Air 07/29/23 10:52 Temperature Pulse Rate 84 Respiratory Rate Blood Pressure Pulse Oximetry 90 L Oxygen Delivery Method MDM - Fall Imaging Data Pelvis x-ray: Radiologist's Impression: PROCEDURE:? XR PELVIS 1-2V ? INDICATIONS:? Bilateral hip pain after fall ? TECHNIQUE:? 1 view(s) of the pelvis acquired.? ? COMPARISON:? [facility], CR, XR PELVIS WITH LATERAL HIP LEFT, 07/24/2023, 10:20.? [facility], CR, XR PELVIS 1-2V, 01/11/2021, 15:08. ? FINDINGS:? ? Bones:? No fractures or dislocations.? No suspicious bony lesions.? ? Bilateral hip arthroplasty hardware is seen, which is partially visualized. ? At least moderate lumbar spine degenerative change is seen. ? Soft tissues:? Visualized bowel gas pattern is normal.? No suspicious soft tissue calcifications.? IMPRESSION:? No erin acute fracture can be seen on this single view study. ? Partially visualized bilateral hip arthroplasty hardware. ? At least moderate lumbar spine degenerative change is seen [facility] Narrative Medical decision making narrative: Patient has been ambulatory. No fractures or dislocations noted on the x-ray. Will discharge patient home. She does have a walker that she can use as needed. She can transition back to the cane as needed as well. No changes in any of her medications. She was given return precautions. She expressed understanding and agreement with plan. Discharge Plan Departure Patient Disposition: Home Clinical Impression: Hip pain Instructions: How to Prevent Falls Activity Restrictions/Additional Instructions: There were no fractures nor dislocations noted on the x-rays. You can use the walker as needed and you can transition back to the cane when able. Continue to take all of your medications as directed. Return to the emergency department for new or worsening symptoms. Prescriptions: No Action (DME) Disabled Parking Permit See Rx Instructions .ROUTE .MEDSUPPLY Qty: 1 0RF Rx Instructions: Valid for 5 years omeprazole 20 mg capsule,delayed release(DR/EC) 20 mg PO QDAY Qty: 90 2RF tolterodine 4 mg capsule,extended release 24hr See Rx Instructions .ROUTE .COMPLEX Qty: 90 0RF Hold Instructions: Trialing other med Dose Instruction: TAKE 1 CAPSULE BY MOUTH EVERY DAY Rx Instructions: TAKE 1 CAPSULE BY MOUTH EVERY DAY oxybutynin chloride 15 mg tablet extended release 24hr See Rx Instructions .ROUTE .COMPLEX Qty: 90 0RF Dose Instruction: TAKE 1 TABLET BY MOUTH EVERY DAY. TAKE INSTEAD OF TOLTERIDINE, NEVER BOTH Rx Instructions: TAKE 1 TABLET BY MOUTH EVERY DAY. TAKE INSTEAD OF TOLTERIDINE, NEVER BOTH simvastatin 40 mg tablet See Rx Instructions .ROUTE .COMPLEX Qty: 90 0RF Dose Instruction: TAKE 1 TABLET BY MOUTH EVERY DAY Rx Instructions: TAKE 1 TABLET BY MOUTH EVERY DAY olanzapine 5 mg tablet 5 mg PO BEDTIME Qty: 90 0RF cholecalciferol (vitamin D3) 2,000 unit capsule 2,000 unit PO BID Cavilon Durable Barrier 1.3 % cream 1 applic topical DAILY PRN (Reason: rash) Qty: 92 4RF mupirocin 2 % ointment 1 applic topical BID Qty: 22 3RF neomycin-polymyxin B-dexameth 3.5 mg/g-10,000 unit/g-0.1 % ointment 1 applic EYE-LEFT lorazepam 0.5 mg tablet 0.5 mg PO BEDTIME PRN (Reason: anxiety causing insomnia) Qty: 45 0RF sertraline 100 mg tablet 150 mg PO DAILY Qty: 135 0RF PreserVision AREDS [id number] [id number] Tablet 2 tab PO BID diazepam 5 mg tablet 5 mg PO ONCE PRN (Reason: anxiety) Qty: 1 0RF Rx Instructions: take 1 hour prior to MRI pregabalin 50 mg capsule 50 mg PO TID Qty: 90 0RF Rx Instructions: 1 PO QHS x3 days If tolerated, 1 PO BID x3 days If tolerated, 1 PO TID Referrals: Ariella Boo DO [Primary Care Provider] - Stand Alone Forms: Patient Portal/API
[2023-07-29 11:55] VITALS: BP 138/69; PULSE 66; O2SAT 95
== END 2023-07-29 11:55 | disposition home or self-care (01) ==
PROVIDERS: Emergency Provider Emergency Medicine; PCP Family Medicine
DX: M25.552 Pain in left hip (principal); M25.551 Pain in right hip; W18.30XA Fall on same level, unspecified, initial encounter
CPT/HCPCS: 72170; 99281; 99283

== ENCOUNTER 2023-08-26 15:53 | Emergency (ER) | payer MEDICARE, OTHER, SELFPAY ==
[2023-03-30 14:39] VITALS: BMI 31.3
[2023-08-26] VITALS (8 sets, daily range): BP systolic 130–148; BP diastolic 60–96; PULSE 68–92; RESP 18; TEMP 36.3; O2SAT 93–97; BMI 37.5
--- NOTE | 2023-08-26 16:07 | ED_ITS ---
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 She denies any difficulty speaking or swallowing but does state that she feels like her throat was swelling up. This is caused her to become more anxious with slightly increased tremors from her baseline as she has essential tremor. Denies any chest pain, abdominal pain, nausea, vomiting, or any other concerning signs or symptoms. Related Data Home Medications Medication Instructions Recorded Confirmed cholecalciferol (vitamin D3) 50 2,000 unit PO BID 04/03/18 08/22/23 mcg (2,000 unit) capsule vitamins A,C,E-twji-fhrfpo 2,148 2 tab PO BID 08/26/20 08/22/23 mcg-113 mg-45 mg-17.4 mg tablet (PreserVision AREDS) neomycin 3.5 mg/g-polymyxin B 1 applic EYE-LEFT 03/24/23 08/22/23 10,000 unit/g-dexameth 0.1 % eye oint Previous Rx's Medication Instructions Recorded Disabled Parking Permit #1 ea 02/21/22 dimethicone 1.3 % topical cream 1 applic topical DAILY PRN rash 05/13/22 (Cavilon Durable Barrier) #92 grams mupirocin 2 % topical ointment 1 applic topical BID #22 grams 05/13/22 omeprazole 20 mg capsule,delayed 20 mg PO QDAY #90 caps 01/24/23 release diazepam 5 mg tablet 5 mg PO ONCE PRN anxiety #1 tab 04/25/23 olanzapine 5 mg tablet 5 mg PO BEDTIME #90 tabs 06/19/23 pregabalin 50 mg capsule 50 mg PO TID #90 caps 07/27/23 lorazepam 0.5 mg tablet 0.5 mg PO BEDTIME PRN anxiety 07/28/23 causing insomnia #45 tabs sertraline 100 mg tablet 150 mg (1.5 x 100 mg) PO DAILY 07/28/23 #135 tabs simvastatin 40 mg tablet See Rx Instructions .Route 08/04/23 .COMPLEX #30 tabs tolterodine 4 mg capsule,extended See Rx Instructions .Route 08/04/23 release 24 hr .COMPLEX #90 caps diphenhydramine HCl 25 mg capsule 25 mg PO TID PRN allergy symptoms 08/26/23 (Benadryl) #20 caps Allergies Allergy/AdvReac Type Severity Reaction Status Date / Time digoxin [DIGOXIN] Allergy Mild LIGHTHEADED Verified 08/26/23 16:00 latex [LATEX] Allergy Mild Verified 08/26/23 16:00 silver Allergy Mild BLISTERS Verified 08/26/23 16:00 (FROM TEGADERM MESH) sulfamethoxazole Allergy Mild Rash Verified 08/26/23 16:00 [From Bactrim] trimethoprim [From Bactrim] Allergy Mild Rash Verified 08/26/23 16:00 cephalexin AdvReac Nausea Verified 08/26/23 16:15 fluconazole AdvReac Nausea Verified 08/26/23 16:15 Review of Systems <Jay Shah PA-C - Last Filed: 08/26/23 18:29> Review of Systems Narrative: GENERAL: Denies chills, fatigue, malaise, fever, sweats. HEENT: Reports throat swelling, Denies sinus pain, ear pain, sore throat, difficulty swallowing, dizziness. RESPIRATORY: Reports shortness of breath Denies , cough, wheezing, hemoptysis, sputum. CARDIOVASCULAR: Denies chest pain, palpitations, orthopnea, edema, GASTROINTESTINAL: Denies nausea, vomiting, abdominal pain, diarrhea, constipation, melena. : Denies dysuria, frequency, incontinence, hematuria, urinary retention. MUSCULOSKELETAL: denies weakness, joint pain, or bony pain SKIN: Denies rash, skin lesions, or other NEUROLOGIC: Denies weakness, headache, numbness, change in speech, confusion, seizures, incoordination. PSYCHIATRIC: No concerning psychosocial issues. 12 point review of systems is negative except for those stated above Patient History <Jay Shah PA-C - Last Filed: 08/26/23 18:29> Medical History Rash of groin Groin pain Thoracic radiculopathy Thoracic back pain Lumbar radiculopathy Lumbar spondylosis Bilateral calf pain Peripheral neuropathy Cellulitis Abrasions of multiple sites Abnormal LFTs Soft tissue mass Left upper quadrant pain Internal hemorrhoids (~08/2020) Relationship problem with family member Pulmonary nodule less than 6 mm in diameter with low risk for malignant neoplasm (~07/2020) Restrictive lung disease Dysphagia, pharyngeal phase Neuropathy Foot pain Bronchitis Obesity (BMI 30-39.9) Chicken pox Urinary incontinence (2004) Tinnitus (~2014) Foot pain, left (2009) Ankle pain, left (2009) Lumbar spinal stenosis Anxiety Cataract (03/2014) Hyperlipidemia Hypothyroidism GERD (gastroesophageal reflux disease) Mumps (1966) Bipolar disorder Chronic left shoulder pain (12/25/17) Episodic mood disorder (09/05/17) 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) Essential tremor (05/19/15) Urge incontinence of urine (05/14/15) Chronic lumbar radiculopathy (08/26/14) Surgical History History of esophagogastroduodenoscopy (EGD) (~03/2016) Anesthesia H/O abdominal surgery (03/2007) History of vaginal surgery (~2008) History of partial knee replacement (2007) History of partial knee replacement (2003) History of hip replacement (2001) History of hip replacement (1996) Status post hysterectomy with oophorectomy (1969) Family History Father Heart disease Pulmonary embolism Grandmother Heart disease Heart attack Sister Cancer Melanoma Grandmother No problems noted. Mother Dementia Grandfather Pneumonia Grandfather Dementia Daughter Depression Social History marital status: details: 07/22/2007 number of children: 1 household members: none lives independently: Yes housing: condominium pets and animals: No occupational status: previously employed Smoking Status: Never smoker alcohol intake: current substance use type: does not use Smoking Status: Never smoker alcohol intake frequency: other Substance Use Type: does not use Exam <Jay Shah PA-C - Last Filed: 08/26/23 18:29> Narrative Exam Narrative: GENERAL: Well-developed patient, in mild distress. Very mild tremors which states the patient is baseline for her. HEAD: Atraumatic. Normocephalic. EYES: Pupils equal round and reactive. Extraocular motions intact. No scleral icterus. No injection or drainage. ENT: Nose without bleeding, purulent drainage. Throat without erythema, tonsillar hypertrophy or exudate. Airway patent. NECK: Trachea midline. Non tender CARDIOVASCULAR: Regular rate and rhythm without murmurs, gallops, or rubs. RESPIRATORY: Clear to auscultation. Breath sounds equal bilaterally. No wheezes, rales, or rhonchi. GASTROINTESTINAL: Abdomen soft, non-tender, nondistended. EXTREMITIES: No edema or joint tenderness. BACK: Nontender without deformity or crepitance. No flank tenderness. NEURO: AOx3. SKIN: No rash or erythema of visible areas Initial Vital Signs Initial Vital Signs: Vital Signs Temperature 97.4 F L 08/26/23 16:00 Pulse Rate 89 08/26/23 16:00 Respiratory Rate 18 08/26/23 16:00 Blood Pressure 139/68 08/26/23 16:00 Pulse Oximetry 95 08/26/23 16:00 Oxygen Delivery Method Room Air 08/26/23 16:00 <Dominguez Acosta DO - Last Filed: 08/26/23 18:51> Initial Vital Signs Initial Vital Signs: Vital Signs Temperature 97.4 F L 08/26/23 16:00 Pulse Rate 89 08/26/23 16:00 Respiratory Rate 18 08/26/23 16:00 Blood Pressure 139/68 08/26/23 16:00 Pulse Oximetry 95 08/26/23 16:00 Oxygen Delivery Method Room Air 08/26/23 16:00 Course <Jay Shah PA-C - Last Filed: 08/26/23 18:29> Orders Ordered: Discontinued Medications Diphenhydramine HCl (Diphenhydramine 50 Mg/Ml Vial) 50 mg IV NOW ONE Stop: 08/26/23 16:15 Last Admin: 08/26/23 16:22 Dose: 50 mg Documented By: RB Methylprednisolone (Methylprednisolone 125 Mg/2 Ml Vial) 125 mg IV NOW ONE Stop: 08/26/23 16:16 Last Admin: 08/26/23 16:22 Dose: 125 mg Documented By: RB Vital Signs Vital signs: Vital Signs - 8 hr 08/26/23 16:00 08/26/23 16:12 08/26/23 16:12 Temperature 97.4 F L Pulse Rate 89 91 H Respiratory Rate 18 Blood Pressure 139/68 137/96 H Pulse Oximetry 95 95 Oxygen Delivery Method Room Air 08/26/23 16:30 08/26/23 16:30 08/26/23 17:00 Temperature Pulse Rate 90 84 Respiratory Rate Blood Pressure 148/77 H Pulse Oximetry 94 93 Oxygen Delivery Method 08/26/23 17:00 08/26/23 17:19 08/26/23 17:30 Temperature Pulse Rate 84 92 H Respiratory Rate 18 18 Blood Pressure 139/73 139/73 139/73 Pulse Oximetry 97 96 Oxygen Delivery Method Room Air 08/26/23 18:00 08/26/23 18:00 08/26/23 18:26 Temperature Pulse Rate 84 68 Respiratory Rate 18 Blood Pressure 133/60 130/65 Pulse Oximetry 95 97 Oxygen Delivery Method Room Air <Dominguez Acosta DO - Last Filed: 08/26/23 18:51> Orders Ordered: Discontinued Medications Diphenhydramine HCl (Diphenhydramine 50 Mg/Ml Vial) 50 mg IV NOW ONE Stop: 08/26/23 16:15 Last Admin: 08/26/23 16:22 Dose: 50 mg Documented By: ROBB Methylprednisolone (Methylprednisolone 125 Mg/2 Ml Vial) 125 mg IV NOW ONE Stop: 08/26/23 16:16 Last Admin: 08/26/23 16:22 Dose: 125 mg Documented By: ROBB Vital Signs Vital signs: Vital Signs - 8 hr 08/26/23 16:00 08/26/23 16:12 08/26/23 16:12 Temperature 97.4 F L Pulse Rate 89 91 H Respiratory Rate 18 Blood Pressure 139/68 137/96 H Pulse Oximetry 95 95 Oxygen Delivery Method Room Air 08/26/23 16:30 08/26/23 16:30 08/26/23 17:00 Temperature Pulse Rate 90 84 Respiratory Rate Blood Pressure 148/77 H Pulse Oximetry 94 93 Oxygen Delivery Method 08/26/23 17:00 08/26/23 17:19 08/26/23 17:30 Temperature Pulse Rate 84 92 H Respiratory Rate 18 18 Blood Pressure 139/73 139/73 139/73 Pulse Oximetry 97 96 Oxygen Delivery Method Room Air 08/26/23 18:00 08/26/23 18:00 08/26/23 18:26 Temperature Pulse Rate 84 68 Respiratory Rate 18 Blood Pressure 133/60 130/65 Pulse Oximetry 95 97 Oxygen Delivery Method Room Air MDM - Allergic Reaction <Jay Shah PA-C - Last Filed: 08/26/23 18:29> MDM Narrative Medical decision making narrative: MDM * differential diagnosis includes but not limited to bacterial pharyngitis, allergic reaction * Prior records reviewed: Patient was last seen here a month ago for hip pain. Not on anticoagulation. No fractures found and patient was discharged. * My lab interpretation: None ordered * My imgaing interpretation: None ordered * Clinical Decision Rules/Scores evaluated: None * Independent discussions with: None ED Course: This is a 87-year-old female presents to the emergency department due to suspected allergic reaction due to the Keflex and fluconazole she was recently prescribed for a fungal infection. She was treated with Benadryl and IV Solu-Medrol which she stated helped to improve her symptoms. Recommended she follow up with her rubber goods supervisor for alterations of the medication regime. Th ere were no fevers and low concern for underlying bacterial infection. Patient will continue the nystatin topical ointment she was prescribed. Shared Decision Making: Discussed plan with patient who is comfortable with the plan. Social Considerations: None Disposition: Discharged to home Discharge Plan Departure Patient Disposition: Home Clinical Impression: Allergic reaction Activity Restrictions/Additional Instructions: Thank you for coming to the [facility] Emergency Department today. It appears that you have had an allergic reaction to the medications you were prescribed. You may continue to use the ointment. Please follow-up with your rubber goods supervisor for changing of her medication. Please use Benadryl as needed for any further symptoms you are experiencing. The Benadryl may make you sleepy so please do not take before driving. I hope you feel better soon. Please follow up with your primary care provider within a week if your symptoms continue. If you do not have a primary care provider please contact the [facility] Resource line at [phone]. They will ask some questions about your medical history and help you get set up with a provider in the community. Prescriptions: New diphenhydramine HCl [Benadryl] 25 mg capsule 25 mg PO TID PRN (Reason: allergy symptoms) Qty: 20 0RF No Action (DME) Disabled Parking Permit See Rx Instructions .ROUTE .MEDSUPPLY Qty: 1 0RF Rx Instructions: Valid for 5 years omeprazole 20 mg capsule,delayed release(DR/EC) 20 mg PO QDAY Qty: 90 2RF olanzapine 5 mg tablet 5 mg PO BEDTIME Qty: 90 0RF tolterodine 4 mg capsule,extended release 24hr See Rx Instructions .ROUTE .COMPLEX Qty: 90 0RF Hold Instructions: Trialing other med Dose Instruction: TAKE 1 CAPSULE BY MOUTH EVERY DAY Rx Instructions: TAKE 1 CAPSULE BY MOUTH EVERY DAY simvastatin 40 mg tablet See Rx Instructions .ROUTE .COMPLEX Qty: 30 0RF Dose Instruction: TAKE 1 TABLET BY MOUTH EVERY DAY Rx Instructions: TAKE 1 TABLET BY MOUTH EVERY DAY cholecalciferol (vitamin D3) 2,000 unit capsule 2,000 unit PO BID Cavilon Durable Barrier 1.3 % cream 1 applic topical DAILY PRN (Reason: rash) Qty: 92 4RF mupirocin 2 % ointment 1 applic topical BID Qty: 22 3RF neomycin-polymyxin B-dexameth 3.5 mg/g-10,000 unit/g-0.1 % ointment 1 applic EYE-LEFT lorazepam 0.5 mg tablet 0.5 mg PO BEDTIME PRN (Reason: anxiety causing insomnia) Qty: 45 0RF sertraline 100 mg tablet 150 mg PO DAILY Qty: 135 0RF PreserVision AREDS [id number] [id number] Tablet 2 tab PO BID diazepam 5 mg tablet 5 mg PO ONCE PRN (Reason: anxiety) Qty: 1 0RF Rx Instructions: take 1 hour prior to MRI pregabalin 50 mg capsule 50 mg PO TID Qty: 90 0RF Rx Instructions: 1 PO QHS x3 days If tolerated, 1 PO BID x3 days If tolerated, 1 PO TID Referrals: Ariella Boo DO [Primary Care Provider] - Stand Alone Forms: Patient Portal/API ED Sign-out <Dominguez Acosta DO - Last Filed: 08/26/23 18:51> Cosign ED Attending Rudy Attestation: I was immediately available in the department for consultation. Documentation has been reviewed. I agree with assessment and plan.
[2023-08-26] MEDS: diphenhydrAMINE 50 MG/ML VIAL IV (16:22)
[2023-08-26] MEDS: methylPREDNISolone 125 MG/2 ML VIAL IV (16:22)
== END 2023-08-26 18:37 | disposition home or self-care (01) ==
PROVIDERS: Emergency Provider Physician Assistant Medical; PCP Family Medicine
DX: R06.02 Shortness of breath (principal); T78.40XA Allergy, unspecified, initial encounter
CPT/HCPCS: 96374; 96375; 99283; 99284; J1200; J2930

== ENCOUNTER → 2023-09-19 12:02 | Outpatient (CLI) | payer MEDICARE, OTHER, SELFPAY ==
[2023-03-30 14:39] VITALS: BMI 31.3
--- NOTE | 2023-09-19 12:05 | DI.RAD.S_ITS ---
PROCEDURE: XR FOOT RT MIN 3V INDICATIONS: Right foot pain-metatarsal area, swelling TECHNIQUE: 3 views of the foot were acquired. COMPARISON: None. FINDINGS: Bones: No fractures or dislocations. No suspicious bony lesions. Soft tissues: No tibiotalar joint effusion. Achilles tendon appears normal. IMPRESSION: No fracture. No acute osseous lesion. If symptoms and/or clinical suspicion for pathology persists, further assessment with repeat radiographs (7-10 days) or advanced imaging (e.g. CT, MRI or bone scan) should be considered. Dictated by: Nelsy Murrieta MD, PhD on 09/19/2023 at 13:24 Approved by: Nelsy Murrieta MD, PhD on 09/19/2023 at 13:26
== END ==
PROVIDERS: PCP Family Medicine; Referring Provider Physician Assistant; Visit Provider Physician Assistant
DX: M79.671 Pain in right foot (principal); G62.9 Polyneuropathy, unspecified
CPT/HCPCS: 73630

== ENCOUNTER 2023-09-21 09:49 | Emergency (ER) | payer MEDICARE, OTHER, SELFPAY ==
[2023-03-30 14:39] VITALS: BMI 31.3
[2023-09-21] VITALS (8 sets, daily range): BP systolic 101–137; BP diastolic 50–101; PULSE 71–86; RESP 16–28; TEMP 35.7; O2SAT 94–98; BMI 35.2
--- NOTE | 2023-09-21 10:05 | DI.RAD.S_ITS ---
PROCEDURE: XR CHEST 1V INDICATIONS: chest pain TECHNIQUE: One view of the chest was acquired. COMPARISON: [facility], CR, XR CHEST 1V, 11/10/2022, 13:36. [facility], CR, XR CHEST 2V, 08/10/2018, 13:01. FINDINGS: Surgical changes and devices: None. Lungs and pleura: Lungs are clear. No pleural effusions or pneumothorax. Mediastinum: Mediastinal contours appear normal. Heart size is normal. Bones and chest wall: No suspicious bony lesions. Overlying soft tissues appear unremarkable. IMPRESSION: No acute cardiopulmonary process. Dictated by: Evens Hyde M.D. on 09/21/2023 at 10:23 Approved by: Evens Hyde M.D. on 09/21/2023 at 10:24
[2023-09-21 10:21] LABS: Add Manual Diff / Slide Review NO; Basophils Absolute Auto 0 /uL (0-100); Basophils Percent Auto 0.6 % (0-2); Eosinophils Absolute Auto 0 /uL (0-450); Eosinophils Percent Auto 0.6 % (2-4); Hematocrit 39.2 % (36-46); Hemoglobin 13.5 g/dL (12.0-16.0); Lymphocytes Absolute Auto 1000 /uL (1100-4500); Lymphocytes Percent Auto 12.4 % (25-40); Mean Corpuscular HGB Conc 34.5 % (30-36); Mean Corpuscular Hemoglobin 30.2 PG (26-34); Mean Corpuscular Volume 87.7 fL (80-100); Monocytes Absolute Auto 600 /uL (0-900); Monocytes Percent Auto 7.9 % (3-14); Neutrophils Absolute Auto 6300 /uL (1500-7000); Neutrophils Percent Auto 78.5 % (50-75); Platelet Count 308 X10^3/uL (150-400); Red Blood Cell Count 4.47 X10^6/uL (4.0-5.2); Red Cell Distribution Width 13.6 % (11.6-14.8); White Blood Cell Count 8.1 X10^3/uL (4.5-11.0)
--- NOTE | 2023-09-21 10:28 | ED.CHESTPAIN ---
HPI - Chest Pain General Chief Complaint: Chest Pain Stated Complaint: chest pains Time Seen by Provider: 09/21/23 10:14 Source: patient Mode of arrival: Wheelchair Limitations: no limitations History of Present Illness HPI narrative: Patient brought here by her best friend for [facility] sudden onset left-sided chest pain at 6:40 a.m. today. It lasted 10 minutes. It is gone now. Nothing made it better or worse. No nausea no shortness of breath no syncope no sweating. Never had this before. No prior history of heart attack strokes or diabetes. Does take cholesterol medication. Vital signs are reassuring. No chest pain at this time. EKG is reassuring. Blood work has been drawn. Patient denies any blood clots in legs or lungs or in her aneurysm or dissection. Patient in no distress at this time. She did call EMS earlier this morning. Pain did radiate to the upper back. Related Data Home Medications Medication Instructions Recorded Confirmed cholecalciferol (vitamin D3) 50 2,000 unit PO BID 04/03/18 09/19/23 mcg (2,000 unit) capsule vitamins A,C,F-oulf-qhhlxf 2,148 2 tab PO BID 08/26/20 09/19/23 mcg-113 mg-45 mg-17.4 mg tablet (PreserVision AREDS) Previous Rx's Medication Instructions Recorded Disabled Parking Permit #1 ea 02/21/22 mupirocin 2 % topical ointment 1 applic topical BID #22 grams 05/13/22 omeprazole 20 mg capsule,delayed 20 mg PO QDAY #90 caps 01/24/23 release diazepam 5 mg tablet 5 mg PO ONCE PRN anxiety #1 tab 04/25/23 lorazepam 0.5 mg tablet 0.5 mg PO BEDTIME PRN anxiety 07/28/23 causing insomnia #45 tabs sertraline 100 mg tablet 150 mg (1.5 x 100 mg) PO DAILY 07/28/23 #135 tabs diphenhydramine HCl 25 mg capsule 25 mg PO TID PRN allergy symptoms 08/26/23 (Benadryl) #20 caps olanzapine 5 mg tablet 5 mg PO BEDTIME #90 tabs 09/19/23 simvastatin 40 mg tablet 40 mg PO BEDTIME #90 tabs 09/19/23 tolterodine 4 mg capsule,extended See Rx Instructions .Route 09/28/23 release 24 hr .COMPLEX #90 caps Allergies Allergy/AdvReac Type Severity Reaction Status Date / Time digoxin [DIGOXIN] Allergy Mild LIGHTHEADED Verified 09/21/23 10:01 latex [LATEX] Allergy Mild Verified 09/21/23 10:01 silver Allergy Mild BLISTERS Verified 09/21/23 10:01 (FROM TEGADERM MESH) sulfamethoxazole Allergy Mild Rash Verified 09/21/23 10:01 [From Bactrim] trimethoprim [From Bactrim] Allergy Mild Rash Verified 09/21/23 10:01 cephalexin AdvReac Nausea Verified 09/21/23 10:01 fluconazole AdvReac Nausea Verified 09/21/23 10:01 Review of Systems Review of Systems Narrative: GENERAL: negative chills, fatigue, malaise, fever, sweats. HEENT: negative sinus pain, ear pain, sore throat RESPIRATORY: negative dyspnea, cough CARDIOVASCULAR: Positive chest pain, negative palpitations GASTROINTESTINAL: negative nausea, vomiting, abdominal pain : negative dysuria, frequency, hematuria MUSCULOSKELETAL: negative muscle or bony pain SKIN: negative rash, skin lesions NEUROLOGIC: negative weakness, numbness ROS Unobtainable: All systems reviewed & are unremarkable except as noted in HPI and below Patient History Medical History Rash of groin Groin pain Thoracic radiculopathy Thoracic back pain Lumbar radiculopathy Lumbar spondylosis Bilateral calf pain Peripheral neuropathy Cellulitis Abrasions of multiple sites Abnormal LFTs Soft tissue mass Left upper quadrant pain Internal hemorrhoids (~08/2020) Relationship problem with family member Pulmonary nodule less than 6 mm in diameter with low risk for malignant neoplasm (~07/2020) Restrictive lung disease Dysphagia, pharyngeal phase Neuropathy Foot pain Bronchitis Obesity (BMI 30-39.9) Chicken pox Urinary incontinence (2004) Tinnitus (~2014) Foot pain, left (2009) Ankle pain, left (2009) Lumbar spinal stenosis Anxiety Cataract (03/2014) Hyperlipidemia Hypothyroidism GERD (gastroesophageal reflux disease) Mumps (1966) Bipolar disorder Chronic left shoulder pain (12/25/17) Episodic mood disorder (09/05/17) 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) Essential tremor (05/19/15) Urge incontinence of urine (05/14/15) Chronic lumbar radiculopathy (08/26/14) Surgical History History of esophagogastroduodenoscopy (EGD) (~03/2016) Anesthesia H/O abdominal surgery (03/2007) History of vaginal surgery (~2008) History of partial knee replacement (2007) History of partial knee replacement (2003) History of hip replacement (2001) History of hip replacement (1996) Status post hysterectomy with oophorectomy (1969) Family History Father Heart disease Pulmonary embolism Grandmother Heart disease Heart attack Sister Cancer Melanoma Grandmother No problems noted. Mother Dementia Grandfather Pneumonia Grandfather Dementia Daughter Depression Social History marital status: details: 07/22/2007 number of children: 1 household members: none lives independently: Yes housing: [facility] pets and animals: No occupational status: previously employed Smoking Status: Never smoker alcohol intake: current substance use type: does not use Smoking Status: Never smoker alcohol intake frequency: other Substance Use Type: does not use Exam Narrative Exam Narrative: GENERAL: in no distress, not toxic not dyspneic HEAD: Normocephalic. EYES: Pupils equal round ENT: Mucous membranes moist. NECK: Trachea midline. CARDIOVASCULAR: Regular rate and rhythm RESPIRATORY: Clear to auscultation. Breath sounds equal bilaterally. No wheezes, rales, or rhonchi. GASTROINTESTINAL: Abdomen soft, non-tender EXTREMITIES: No gross deformities. BACK: No flank tenderness. NEURO: AOx4. SKIN: Warm and dry PSYCH: Not anxious, is cooperative Initial Vital Signs Initial Vital Signs: Vital Signs Temperature 96.3 F L 09/21/23 09:56 Pulse Rate 83 09/21/23 09:56 Respiratory Rate 28 H 09/21/23 09:56 Blood Pressure 128/65 09/21/23 09:56 Pulse Oximetry 95 09/21/23 09:56 Oxygen Delivery Method Room Air 09/21/23 09:56 Course Orders Ordered: Discontinued Medications Aspirin (Aspirin 81 Mg Chew Tab) 324 mg PO NOW ONE Stop: 09/21/23 10:06 Last Admin: 09/21/23 10:56 Dose: 324 mg Documented By: OW Vital Signs Vital signs: Vital Signs - 8 hr 09/21/23 09:56 09/21/23 10:30 09/21/23 11:00 Temperature 96.3 F L Pulse Rate 83 78 71 Respiratory Rate 28 H 28 H 26 H Blood Pressure 128/65 108/56 L 130/58 L Pulse Oximetry 95 95 94 Oxygen Delivery Method Room Air Room Air Room Air 09/21/23 11:30 09/21/23 12:10 09/21/23 13:33 Temperature Pulse Rate 75 73 86 Respiratory Rate 24 24 Blood Pressure 114/61 137/101 H 101/50 L Pulse Oximetry 94 95 95 Oxygen Delivery Method Room Air Room Air Room Air 09/21/23 13:43 Temperature Pulse Rate 81 Respiratory Rate 22 Blood Pressure 121/57 L Pulse Oximetry 98 Oxygen Delivery Method Room Air MDM - Chest Pain Lab Data 09/21/23 10:11 09/21/23 10:11 Labs: Lab Results 09/21/23 09/21/23 Range/Units 10:11 12:15 WBC 8.1 (4.5-11.0) X10^3/uL RBC 4.47 (4.0-5.2) X10^6/uL Hgb 13.5 (12.0-16.0) g/dL Hct 39.2 (36-46) % MCV 87.7 (80-100) fL MCH 30.2 (26-34) PG MCHC 34.5 (30-36) % RDW 13.6 (11.6-14.8) % Plt Count 308 (150-400) X10^3/uL Neut % (Auto) 78.5 H (50-75) % Lymph % (Auto) 12.4 L (25-40) % [place] % (Auto) 7.9 (3-14) % Eos % (Auto) 0.6 L (2-4) % Baso % (Auto) 0.6 (0-2) % Neut # (Auto) 6300 (6856-7308) /uL Lymph # (Auto) 1000 L (5969-4966) /uL [place] # (Auto) 600 (0-900) /uL Eos # (Auto) 0 (0-450) /uL Baso # (Auto) 0 (0-100) /uL PT 12.8 H (10.1-12.7) SECONDS INR 1.1 (0.9-1.3) APTT 33 (26-36) SECONDS Sodium 130 L (137-145) mmol/L Potassium 4.4 (3.4-5.1) mmol/L Chloride 95 L (98-107) mmol/L Carbon Dioxide 24 (22-32) mmol/L BUN 17 (7-17) mg/dL Creatinine 0.58 (0.52-1.04) mg/dL Estimated GFR > 60 (>60) mL/min BUN/Creatinine Ratio 29.3 H (6-22) Glucose 119 H (80-110) mg/dL Calcium 10.2 (8.4-10.2) mg/dL Magnesium 2.2 (1.6-2.3) mg/dL Total Bilirubin 0.6 (0.2-1.3) mg/dL AST 29 (14-36) IU/L ALT 37 H (<35) IU/L Alkaline Phosphatase 71 (38-126) U/L Total Creatine Kinase 45 38 (30-135) U/L Troponin I < 0.012 < 0.012 (0.01-0.034) ng/mL Total Protein 7.4 (6.3-8.2) g/dL Albumin 4.4 (3.5-5.0) g/dL Globulin 3.0 (1.7-4.1) g/dL Albumin/Globulin Ratio 1.5 (1.0-2.8) Lipase 151 (23-300) U/L [facility] Narrative Medical decision making narrative: Patient brought here by her best friend for Resolve sudden onset left-sided chest pain at 6:40 a.m. today. It lasted 10 minutes. It is gone now. Nothing made it better or worse. No nausea no shortness of breath no syncope no sweating. Never had this before. No prior history of heart attack strokes or diabetes. Does take cholesterol medication. Vital signs are reassuring. No chest pain at this time. EKG is reassuring. Blood work has been drawn. Patient denies any blood clots in legs or lungs or in her aneurysm or dissection. Patient in no distress at this time. She did call EMS earlier this morning. Pain did radiate to the upper back. After history and exam CBC CMP troponin x2 EKG chest x-ray aspirin MDM CC: Chest pain Complicating co-morbidities: Age/hypercholesteremia Data collected from: Patient/friend at bedside Medical records reviewed: No recent visit for this complaint Differential considered: Includes but not limited to STEMI non-STEMI stable angina unstable angina aortic dissection/aneurysm pneumonia Exam documented above, pertinent findings include: Nontender Lab Test results independently reviewed as above. Pertinent findings: WBC 8.1 hemoglobin 13.5 INR 1.1 sodium 130 potassium 4.4 GFR greater than 60 AST 29 ALT 37 troponin less than 0.012 x2 Independently reviewed EKG normal sinus rhythm rate 80 incomplete right bundle-branch block Repeat EKG 12:32 p.m.. Normal sinus rhythm rate 75 right bundle-branch block present. Imaging studies independently reviewed: Chest x-ray no acute finding Consultations: 1:15 p.m.. Spoke with cardiology Dr. Lux. Recommends admit observation stress test 1:[address] Nobles, hospitalist, he will see patient in the emergency department 2:[address] Nobles has spoken with patient. He will put a consult note in, patient does not want to stay for admission. Treatments: Aspirin Re-evaluations: 1:30 p.m.. Updated patient. Still remains chest pain-free. 2:17 p.m.. Patient desires discharge home she has seen and met with Dr. Nobles, she does not want to stay in the hospital. He did talk to her about admission. She desires to go home. Discussion: Appropriate for discharge home. Patient has met with hospitalist and she declines admission. She is chest pain-free. Return precautions reviewed with her. She desires discharge home. Diagnosis: Chest pain Discharge Plan Departure Patient Disposition: Home Clinical Impression: Chest pain Qualifiers: Chest pain type: unspecified Qualified Code(s): R07.9 - Chest pain, unspecified Instructions: DI for Chest Pain Activity Restrictions/Additional Instructions: Return if worse if any questions or concerns. Please see your family doctor for re-evaluation. Please do continue home medications. At this time laboratory studies and imaging are reassuring. Prescriptions: No Action (DME) Disabled Parking Permit See Rx Instructions .ROUTE .MEDSUPPLY Qty: 1 0RF Rx Instructions: Valid for 5 years omeprazole 20 mg capsule,delayed release(DR/EC) 20 mg PO QDAY Qty: 90 2RF tolterodine 4 mg capsule,extended release 24hr See Rx Instructions .ROUTE .COMPLEX Qty: 90 0RF Hold Instructions: Trialing other med Dose Instruction: TAKE 1 CAPSULE BY MOUTH EVERY DAY Rx Instructions: TAKE 1 CAPSULE BY MOUTH EVERY DAY simvastatin 40 mg tablet 40 mg PO BEDTIME Qty: 90 3RF olanzapine 5 mg tablet 5 mg PO BEDTIME Qty: 90 3RF cholecalciferol (vitamin D3) 2,000 unit capsule 2,000 unit PO BID mupirocin 2 % ointment 1 applic topical BID Qty: 22 3RF lorazepam 0.5 mg tablet 0.5 mg PO BEDTIME PRN (Reason: anxiety causing insomnia) Qty: 45 0RF sertraline 100 mg tablet 150 mg PO DAILY Qty: 135 0RF PreserVision AREDS [id number] Tablet 2 tab PO BID diphenhydramine HCl [Benadryl] 25 mg capsule 25 mg PO TID PRN (Reason: allergy symptoms) Qty: 20 0RF diazepam 5 mg tablet 5 mg PO ONCE PRN (Reason: anxiety) Qty: 1 0RF Rx Instructions: take 1 hour prior to MRI Referrals: Ariella Boo DO [Primary Care Provider] - Stand Alone Forms: Patient Portal/API
[2023-09-21 10:42] LABS: INR 1.1 (0.9-1.3); Prothrombin Time 12.8 SECONDS (10.1-12.7)
[2023-09-21 10:46] LABS: PTT Partial Thromboplastin Tim 33 SECONDS (26-36)
[2023-09-21 10:48] LABS: Alanine Aminotransferase 37 IU/L (<35); Albumin 4.4 g/dL (3.5-5.0); Albumin Globulin Ratio 1.5 (1.0-2.8); Alkaline Phosphatase 71 U/L (38-126); Aspartate Aminotransferase 29 IU/L (14-36); BUN Creatinine Ratio 29.3 (6-22); Bilirubin Total 0.6 mg/dL (0.2-1.3); Blood Urea Nitrogen 17 mg/dL (7-17); Calcium 10.2 mg/dL (8.4-10.2); Carbon Dioxide 24 mmol/L (22-32); Chloride 95 mmol/L (98-107); Creatine Kinase 45 U/L (30-135); Estimated Glomerular Filt Rate > 60 mL/min (>60); Glucose 119 mg/dL (80-110); HEMOLYSIS 24 (0-50); Lipase 151 U/L (23-300); Magnesium 2.2 mg/dL (1.6-2.3); Potassium 4.4 mmol/L (3.4-5.1); Sodium 130 mmol/L (137-145); Total Protein 7.4 g/dL (6.3-8.2)
[2023-09-21] MEDS: ASPIRIN 81 MG CHEW TAB 324 MG PO (10:56)
[2023-09-21 10:58] LABS: Troponin I < 0.012 ng/mL (0.01-0.034)
--- NOTE | 2023-09-21 11:53 | PC.NURSE ---
Pt continues to report being pain free. Pt sitting up with legs hanging off side of bed. Respirations are regular and unlabored. Skin is warm, pink and dry. Pt's friend continues to be at bedside.
[2023-09-21 12:49] LABS: Creatine Kinase 38 U/L (30-135)
[2023-09-21 13:02] LABS: Troponin I < 0.012 ng/mL (0.01-0.034)
--- NOTE | 2023-09-21 14:26 | P.CONS_ITS ---
History of Present Illness Consult details Date Patient Seen: 09/21/23 Time Patient Seen: 13:45 Chief complaint: chest pains Narrative: This is an 88 year old female with PMH of back pain, anxiety, GERD, hypothyroidism, and HLD who presented to the emergency room after an approximate 5 minute episode of eipgastric pain. She states she felt a sharp pain under her breast, pointing to the top of her adbomen, with some radiation into her back. This resolved spontaneously without any interventions. She denies prior episodes. In the emergency room, troponins were negative, EKG showed NSR without abnormal findings. CXR was unremarkable. Lipase was 151. Vitals were unremarkable. Medicine was asked to evaluate for further admission for chest pain. Based on her presentation, her HEART score was a 3, or low risk. Discussed with the patient the risks and benefits of observation admission or outpatient follow up with primary care for further workup given low risk HEART score. Patient wished to discharge home after discussion. Meds Home Medications and Allergies Home Medications Medication Instructions Recorded Confirmed Type cholecalciferol (vitamin D3) 50 2,000 unit PO BID 04/03/18 09/19/23 History mcg (2,000 unit) capsule vitamins A,C,B-juna-gkousi 2,148 2 tab PO BID 08/26/20 09/19/23 History mcg-113 mg-45 mg-17.4 mg tablet (PreserVision AREDS) Disabled Parking Permit #1 ea 02/21/22 09/19/23 Rx mupirocin 2 % topical ointment 1 applic topical BID #22 grams 05/13/22 09/19/23 Rx omeprazole 20 mg capsule,delayed 20 mg PO QDAY #90 caps 01/24/23 09/19/23 Rx release diazepam 5 mg tablet 5 mg PO ONCE PRN anxiety #1 tab 04/25/23 09/19/23 Rx lorazepam 0.5 mg tablet 0.5 mg PO BEDTIME PRN anxiety 07/28/23 09/19/23 Rx causing insomnia #45 tabs sertraline 100 mg tablet 150 mg (1.5 x 100 mg) PO DAILY 07/28/23 09/19/23 Rx #135 tabs tolterodine 4 mg capsule,extended See Rx Instructions .Route 08/04/23 09/19/23 Rx release 24 hr .COMPLEX #90 caps diphenhydramine HCl 25 mg capsule 25 mg PO TID PRN allergy symptoms 08/26/23 09/19/23 Rx (Benadryl) #20 caps olanzapine 5 mg tablet 5 mg PO BEDTIME #90 tabs 09/19/23 09/19/23 Rx simvastatin 40 mg tablet 40 mg PO BEDTIME #90 tabs 09/19/23 09/19/23 Rx Allergies Allergy/AdvReac Type Severity Reaction Status Date / Time digoxin [DIGOXIN] Allergy Mild LIGHTHEADED Verified 09/21/23 10:01 latex [LATEX] Allergy Mild Verified 09/21/23 10:01 silver Allergy Mild BLISTERS Verified 09/21/23 10:01 (FROM TEGADERM MESH) sulfamethoxazole Allergy Mild Rash Verified 09/21/23 10:01 [From Bactrim] trimethoprim [From Bactrim] Allergy Mild Rash Verified 09/21/23 10:01 cephalexin AdvReac Nausea Verified 09/21/23 10:01 fluconazole AdvReac Nausea Verified 09/21/23 10:01 Review of Systems Review of Systems Narrative: All other systems reviewed with the patient and are negative unless otherwise stated. Exam Vital Signs (past 8 hours): - 09/21/23 09:56 09/21/23 10:30 09/21/23 11:00 Temperature 96.3 F L Pulse Rate 83 78 71 Respiratory Rate 28 H 28 H 26 H Blood Pressure 128/65 108/56 L 130/58 L Pulse Oximetry 95 95 94 Oxygen Delivery Method Room Air Room Air Room Air 09/21/23 11:30 09/21/23 12:10 09/21/23 13:33 Temperature Pulse Rate 75 73 86 Respiratory Rate 24 24 Blood Pressure 114/61 137/101 H 101/50 L Pulse Oximetry 94 95 95 Oxygen Delivery Method Room Air Room Air Room Air 09/21/23 13:43 Temperature Pulse Rate 81 Respiratory Rate 22 Blood Pressure 121/57 L Pulse Oximetry 98 Oxygen Delivery Method Room Air Oxygen Delivery Method Room Air Narrative Exam Narrative: General:? Patient is well developed and well nourished, in no distress at this time. Chest:? Normal AP diameter and contour without kyphoscoliosis, no tachypnea, equal chest rise bilaterally. Lungs:? CTA b/l no wheezing rhonchi or rales. Cardio:?RRR no m/r/g. Abdomen: S NT ND. Musculoskeletal:? Muscle strength and tone are equal within normal limits, no deformity. Extremities: No edema or joint effusions. No cyanosis or clubbing. Skin:? Pale,? Warm to touch,dry and intact without rashes, ulcerations or petechiae.? Neuro:? Alert and orientated x3,? sensation to touch intact in all extremities, no gross deficits noted of cranial nerves. Psych:? Patient has a well-kept appearance, appropriate affect, mental status attitude thought context and judgment are appropriate for age. Objective Labs 09/21/23 10:11 09/21/23 10:11 Labs: Laboratory Results - last 24 hr 09/21/23 09/21/23 10:11 12:15 WBC 8.1 RBC 4.47 Hgb 13.5 Hct 39.2 MCV 87.7 MCH 30.2 MCHC 34.5 RDW 13.6 Plt Count 308 Neut % (Auto) 78.5 H Lymph % (Auto) 12.4 L [place] % (Auto) 7.9 Eos % (Auto) 0.6 L Baso % (Auto) 0.6 Neut # (Auto) 6300 Lymph # (Auto) 1000 L [place] # (Auto) 600 Eos # (Auto) 0 Baso # (Auto) 0 PT 12.8 H INR 1.1 APTT 33 Sodium 130 L Potassium 4.4 Chloride 95 L Carbon Dioxide 24 BUN 17 Creatinine 0.58 Estimated GFR > 60 BUN/Creatinine Ratio 29.3 H Glucose 119 H Calcium 10.2 Magnesium 2.2 Total Bilirubin 0.6 AST 29 ALT 37 H Alkaline Phosphatase 71 Total Creatine Kinase 45 38 Troponin I < 0.012 < 0.012 Total Protein 7.4 Albumin 4.4 Globulin 3.0 Albumin/Globulin Ratio 1.5 Lipase 151 [facility] Medical History Rash of groin Groin pain Thoracic radiculopathy Thoracic back pain Lumbar radiculopathy Lumbar spondylosis Bilateral calf pain Peripheral neuropathy Cellulitis Abrasions of multiple sites Abnormal LFTs Soft tissue mass Left upper quadrant pain Internal hemorrhoids (~08/2020) Relationship problem with family member Pulmonary nodule less than 6 mm in diameter with low risk for malignant neoplasm (~07/2020) Restrictive lung disease Dysphagia, pharyngeal phase Neuropathy Foot pain Bronchitis Obesity (BMI 30-39.9) Chicken pox Urinary incontinence (2004) Tinnitus (~2014) Foot pain, left (2009) Ankle pain, left (2009) Lumbar spinal stenosis Anxiety Cataract (03/2014) Hyperlipidemia Hypothyroidism GERD (gastroesophageal reflux disease) Mumps (1966) Bipolar disorder Chronic left shoulder pain (12/25/17) Episodic mood disorder (09/05/17) 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) Essential tremor (05/19/15) Urge incontinence of urine (05/14/15) Chronic lumbar radiculopathy (08/26/14) Surgical History History of esophagogastroduodenoscopy (EGD) (~03/2016) Anesthesia H/O abdominal surgery (03/2007) History of vaginal surgery (~2008) History of partial knee replacement (2007) History of partial knee replacement (2003) History of hip replacement (2001) History of hip replacement (1996) Status post hysterectomy with oophorectomy (1969) Family History Father Heart disease Pulmonary embolism Grandmother Heart disease Heart attack Sister Cancer Melanoma Grandmother No problems noted. Mother Dementia Grandfather Pneumonia Grandfather Dementia Daughter Depression Social History marital status: details: 07/22/2007 number of children: 1 household members: none lives independently: Yes housing: condominium pets and animals: No occupational status: previously employed Tobacco & Substance Use Smoking Status: Never smoker alcohol intake: current substance use type: does not use Assessment & Plan Assessment & Plan narrative: 1. Epigastric pain - do not suspect atypical presentation of ACS. Troponins negative, EKG is unremarkable and symptoms resolved. HEART score is 3 or low risk. - discussed risks and benefits of patient regarding admission for further stress testing vs outpatient follow up and patient elected outpatient follow up. - suspect musculoskeletal cause is mmore likely given the description of her pain. Discussed with patient, ER provider to formulate the above assessment and plan. I have reviewed patient's EKG, imaging, labs and prior documentation personally. Code: Full, surrogate is daughter. I have utilized all available immediate resources to obtain, update, or review the patient's current medications. Dispo: patient discharged home from the ER.
== END 2023-09-21 14:40 | disposition home or self-care (01) ==
PROVIDERS: Emergency Provider Emergency Medicine; PCP Family Medicine
DX: R07.9 Chest pain, unspecified (principal)
CPT/HCPCS: 36415; 71045; 80053; 82550; 83690; 83735; 84484; 85025; 85610; 85730; 93005; 99284

== ENCOUNTER → 2023-09-27 09:20 | Outpatient (CLI) | payer MEDICARE, OTHER, SELFPAY ==
[2023-03-30 14:39] VITALS: BMI 31.3
--- NOTE | 2023-09-27 | DI.CT.S_ITS ---
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 1 mm lung window, 5 mm thick coronal and sagittal and 7 mm axial MIP reformats were then acquired. For radiation dose reduction, the following was used: automated exposure control, adjustment of mA and/or kV according to patient size. COMPARISON: [facility], CT, CT CHEST WO CON, 07/26/2021, 10:16., CT chest without contrast 02/06/2023 FINDINGS: Image quality: Moderately degraded by motion artifact Lungs and pleura: No acute air space opacities. No pleural effusions or pneumothorax. Central and peripheral airways are patent and normal in caliber. Index pulmonary nodules as follows: Right lower lobe 3 mmx solid pulmonary nodule (8/42), stable Right middle lobe 5 mm solid pulmonary nodule (8/66), stable No new or enlarging pulmonary nodule. Mediastinum: Heart size is normal. No pericardial effusion. Mild coronary artery calcifications. No mediastinal adenopathy by size criteria. Thoracic aorta and central pulmonary arteries are normal in size. Esophagus is normal in caliber. No hiatal hernia. Bones and chest wall: No suspicious bony lesions. No vertebral body compression fractures. No axillary or supraclavicular adenopathy by size criteria. Thyroid gland is unremarkable . Abdomen: Hepatic cysts. Hepatic steatosis. Remainder of the visualized upper abdominal solid organs and bowel loops appear normal in the absence of contrast. IMPRESSION: Stable pulmonary nodules. No definite evidence of metastatic disease. Approved by: Lakeshia Mo M.D. on 09/27/2023 at 20:49
== END ==
PROVIDERS: PCP Family Medicine; Referring Provider Orthopaedic Surgery; Visit Provider Orthopaedic Surgery
DX: C49.9 Malignant neoplasm of connective and soft tissue, unspecified (principal); R91.8 Other nonspecific abnormal finding of lung field
CPT/HCPCS: 71250

== ENCOUNTER → 2023-10-10 12:00 | Outpatient (CLI) | payer MEDICARE, OTHER, SELFPAY ==
[2023-03-30 14:39] VITALS: BMI 31.3
[2023-10-10 13:29] LABS: Bilirubin Urine UA NEGATIVE (NEGATIVE); Color Urine UA YELLOW; Glucose Urine UA NEGATIVE (Negative); Ketones Urine UA TRACE (NEGATIVE); Leukocyte Esterase Urine UA 3+ (NEGATIVE); Nitrite Urine UA NEGATIVE (Negative); Occult Blood Urine UA NEGATIVE (Negative); Protein Urine UA TRACE (Negative); Specific Gravity Urine UA 1.015 (1.000-1.035); Urobilinogen Urine UA 0.2 E.U./dL (0.2)
[2023-10-10 13:35] LABS: Appearance Urine UA SL CLOUDY; pH Urine UA 5.5 (4.5-8.0)
[2023-10-10 13:40] LABS: Bacteria Urine Many (>30); RBC Urine None Seen (0-5/HPF); Squamous Epithelial Cell Urine 1-5 /HPF (0-5/HPF); Transitional Epi Cells Urine 0-1/HPF (0-5/HPF); WBC Urine 10-30/HPF (0-5/HPF)
[2023-10-10 13:41] LABS: Culture Indicated Urine Specimen Cultured; Hyaline Casts Urine 0-1/LPF; Mucus Urine 1+ (Negative)
[2023-10-12 01:36] LABS: Calcium 10.4 mg/dL (8.7-10.3); Parathyroid Hormone, Intact 48 pg/mL (15-65)
== END ==
PROVIDERS: PCP Family Medicine; Referring Provider Family Medicine; Visit Provider Family Medicine
DX: E83.52 Hypercalcemia (principal); R30.0 Dysuria
CPT/HCPCS: 36415; 81001; 82310; 83970; 87077; 87086; 87186

== ENCOUNTER → 2023-10-20 11:20 | Outpatient (CLI) | payer MEDICARE, OTHER, SELFPAY ==
[2023-03-30 14:39] VITALS: BMI 31.3
[2023-10-20 13:32] LABS: Influenza A - CEPHEID Flu A NEGATIVE (NEGATIVE); Influenza B - CEPHEID Flu B NEGATIVE (NEGATIVE); Respiratory Syncytial Virus Negative (Negative)
[2023-10-20 13:52] LABS: COVID-19 CEPHEID 4-PLEX PCR Negative (Negative)
== END ==
PROVIDERS: PCP Family Medicine; Visit Provider Family Medicine
DX: R53.83 Other fatigue (principal); R05.9 Cough, unspecified; R06.02 Shortness of breath
CPT/HCPCS: 0241U

== ENCOUNTER → 2023-10-24 15:32 | Outpatient (CLI) | payer MEDICARE, OTHER, SELFPAY ==
[2023-03-30 14:39] VITALS: BMI 31.3
--- NOTE | 2023-10-24 15:35 | DI.US.S_ITS ---
PROCEDURE: US PERIPH VENOUS LOW EXTREM LT INDICATIONS: SWELLING, PAIN, AND SHORTNESS OF BREATH TECHNIQUE: Real-time imaging, as well as color and pulse Doppler interrogation, were performed of the lower extremity deep veins from the inguinal ligament to the popliteal fossa, with documentation of the visualized calf veins. COMPARISON: None. FINDINGS: The common femoral, femoral, popliteal, and the visualized calf veins are normally compressible, and free of intraluminal thrombus. Color and pulse Doppler demonstrate normal phasic intraluminal flow. There is normal augmentation response to distal compression maneuver. IMPRESSION: No evidence of left lower extremity DVT. Dictated by: Shivani Mendiola M.D. on 10/24/2023 at 16:45 Approved by: Shivani Mendiola M.D. on 10/24/2023 at 16:45
== END ==
PROVIDERS: PCP Family Medicine; Referring Provider Family Medicine; Visit Provider Family Medicine
DX: M79.662 Pain in left lower leg (principal); M79.89 Other specified soft tissue disorders; R06.02 Shortness of breath
CPT/HCPCS: 93971

== ENCOUNTER → 2023-12-12 11:27 | Outpatient (CLI) | payer MEDICARE, OTHER, SELFPAY ==
[2023-03-30 14:39] VITALS: BMI 31.3
[2023-12-12 12:35] LABS: Vitamin D 25 Hydroxy (D3) 60.4 ng/mL (30.0-100.0)
[2023-12-12 12:38] LABS: Free T4, Direct Thyroxine 1.07 ng/dL (0.78-2.19)
[2023-12-12 12:51] LABS: Thyroid Stimulating Hormone 0.328 uIU/mL (0.47-4.68)
[2023-12-12 13:28] LABS: Folate 15.6 ng/mL (2.76-20.0); Vitamin B12 939 pg/mL (239-931)
== END ==
PROVIDERS: PCP Family Medicine; Referring Provider Psychiatry & Neurology Neurology; Visit Provider Psychiatry & Neurology Neurology
DX: R53.83 Other fatigue (principal); E55.9 Vitamin D deficiency, unspecified; G62.9 Polyneuropathy, unspecified
CPT/HCPCS: 36415; 82306; 82607; 82746; 84439; 84443

== ENCOUNTER → 2024-01-25 09:21 | Outpatient (CLI) | payer MEDICARE, OTHER, SELFPAY ==
[2023-03-30 14:39] VITALS: BMI 31.3
--- NOTE | 2024-01-25 09:24 | DI.CT.S_ITS ---
PROCEDURE: CT CHEST WO CON INDICATIONS: UNIDENTIFIED PLEOMORPHIC SARCOMA TECHNIQUE: Noncontrast 5 mm thick sections acquired from the pulmonary apices to the posterior costophrenic angles. 1 mm lung window, 5 mm thick coronal and sagittal and 7 mm axial MIP reformats were then acquired. For radiation dose reduction, the following was used: automated exposure control, adjustment of mA and/or kV according to patient size. COMPARISON: [facility], CT, CT CHEST WITHOUT CONTRAST, 02/06/2023, 10:17. [facility], CT, CT CHEST WO CON, 09/27/2023, 9:29. FINDINGS: Image quality: Diagnostic. Lower Neck: No enlarged lymph nodes. Thyroid: No thyroid nodules which require sonographic follow up, per consensus guidelines. Axillae: No enlarged lymph nodes. Chest Wall: Unremarkable. Bones: No suspicious osseous lesion. Bilateral shoulder DJD. Lungs and Pleura: No pneumothorax or pleural effusions. Pleural apical scarring. A few small pulmonary nodules. For example: Right middle lobe pulmonary nodule measuring 0.4 cm, (3/208), unchanged. Left lower lobe pulmonary nodule measuring 0.4 cm, (3/173), unchanged. Heart: Heart size is normal. Mild coronary artery calcifications. No pericardial effusion. Thoracic Vessels: The aorta and pulmonary arteries demonstrate normal size. Mediastinum and [place]: No enlarged lymph nodes. Esophagus: No wall thickening. No hiatal hernia. Upper Abdomen: Visualized upper abdomen solid organs and bowel loops appear normal. Well-circumscribed hypodensity in the left lobe of the liver which has the appearance of a cyst is unchanged. IMPRESSION: No new or enlarging thyroid nodules. A few pulmonary nodules measuring 4 cm or less which are unchanged. No enlarged lymph nodes identified. Dictated by: Doc Fountain M.D. on 01/25/2024 at 15:03 Approved by: Doc Fountain M.D. on 01/25/2024 at 15:18
== END ==
PROVIDERS: PCP Family Medicine; Referring Provider Physician Assistant; Visit Provider Physician Assistant
DX: C49.9 Malignant neoplasm of connective and soft tissue, unspecified (principal); R91.8 Other nonspecific abnormal finding of lung field; M19.012 Primary osteoarthritis, left shoulder; M19.011 Primary osteoarthritis, right shoulder; I25.10 Atherosclerotic heart disease of native coronary artery without angina pectoris
CPT/HCPCS: 71250

== ENCOUNTER → 2024-02-27 12:33 | Outpatient (CLI) | payer MEDICARE, OTHER, SELFPAY ==
[2023-03-30 14:39] VITALS: BMI 31.3
[2024-02-27 14:14] LABS: Alanine Aminotransferase 26 IU/L (<35); Albumin 4.7 g/dL (3.5-5.0); Albumin Globulin Ratio 1.9 (1.0-2.8); Alkaline Phosphatase 73 U/L (38-126); Aspartate Aminotransferase 30 IU/L (14-36); Bilirubin Total 0.4 mg/dL (0.2-1.3); Bilirubin Unconjugated 0.3 mg/dL (0.0-1.1); Globulin 2.5 g/dL (1.7-4.1); HEMOLYSIS 25 (0-50); Total Protein 7.2 g/dL (6.3-8.2)
== END ==
PROVIDERS: PCP Family Medicine; Referring Provider Physician Assistant Medical; Visit Provider Physician Assistant Medical
DX: B35.1 Tinea unguium (principal)
CPT/HCPCS: 36415; 80076

== ENCOUNTER → 2024-04-04 13:14 | Outpatient (CLI) | payer MEDICARE, OTHER, SELFPAY ==
[2023-03-30 14:39] VITALS: BMI 31.3
== END ==
PROVIDERS: PCP Family Medicine; Referring Provider Podiatrist; Visit Provider Surgery
DX: L97.512 Non-pressure chronic ulcer of other part of right foot with fat layer exposed (principal); L84 Corns and callosities; G62.9 Polyneuropathy, unspecified
CPT/HCPCS: 11042; 99203; 99214

== ENCOUNTER → 2024-04-11 10:15 | Outpatient (CLI) | payer MEDICARE, OTHER, SELFPAY ==
[2023-03-30 14:39] VITALS: BMI 31.3
== END ==
LOC: WC 10:15
PROVIDERS: PCP Family Medicine; Referring Provider Podiatrist; Visit Provider Surgery
DX: G62.9 Polyneuropathy, unspecified (principal); L84 Corns and callosities
CPT/HCPCS: 99213

== ENCOUNTER → 2024-04-18 09:53 | Outpatient (CLI) | payer MEDICARE, OTHER, SELFPAY ==
[2023-03-30 14:39] VITALS: BMI 31.3
== END ==
LOC: WC 09:54
PROVIDERS: PCP Family Medicine; Referring Provider Podiatrist; Visit Provider Surgery
DX: L97.511 Non-pressure chronic ulcer of other part of right foot limited to breakdown of skin (principal); G62.9 Polyneuropathy, unspecified
CPT/HCPCS: 97597; 99213

== ENCOUNTER → 2024-04-23 08:19 | Outpatient (CLI) | payer MEDICARE, OTHER, SELFPAY ==
[2023-03-30 14:39] VITALS: BMI 31.3
--- NOTE | 2024-04-23 08:24 | DI.RAD.S_ITS ---
PROCEDURE: XR CHEST 2V INDICATIONS: Surveillence TECHNIQUE: 2 views of the chest were acquired. COMPARISON: [facility], , XR CHEST 1V, 09/21/2023, 10:09. [facility], CR, XR CHEST 1V, 11/10/2022, 13:36. FINDINGS: Surgical changes and devices: None. Lungs and pleura: Lungs are clear. No pleural effusions or pneumothorax. Mediastinum: Mediastinal contours are normal. Heart size is normal. Bones and chest wall: No suspicious bony abnormalities. Soft tissues appear unremarkable. Severe left glenohumeral osteoarthritis. IMPRESSION: No acute cardiopulmonary abnormality is seen. Dictated by: Robert Al M.D. on 04/23/2024 at 9:11 Approved by: Robert Al M.D. on 04/23/2024 at 9:12
[2024-04-23 10:15] LABS: Add Manual Diff / Slide Review NO; Basophils Absolute Auto 0 /uL (0-100); Basophils Percent Auto 0.6 % (0-2); Eosinophils Absolute Auto 400 /uL (0-450); Eosinophils Percent Auto 4.1 % (2-4); Hematocrit 38.7 % (36-46); Hemoglobin 13.2 g/dL (12.0-16.0); Lymphocytes Absolute Auto 1400 /uL (1100-4500); Lymphocytes Percent Auto 16.5 % (25-40); Mean Corpuscular HGB Conc 34.1 % (30-36); Mean Corpuscular Hemoglobin 30.1 PG (26-34); Mean Corpuscular Volume 88.4 fL (80-100); Monocytes Absolute Auto 800 /uL (0-900); Monocytes Percent Auto 9.1 % (3-14); Neutrophils Absolute Auto 6000 /uL (1500-7000); Neutrophils Percent Auto 69.7 % (50-75); Platelet Count 259 X10^3/uL (150-400); Red Blood Cell Count 4.37 X10^6/uL (4.0-5.2); Red Cell Distribution Width 13.7 % (11.6-14.8); White Blood Cell Count 8.6 X10^3/uL (4.5-11.0)
[2024-04-23 10:32] LABS: BUN Creatinine Ratio 35.8 (6-22); Blood Urea Nitrogen 24 mg/dL (7-17); Calcium 9.7 mg/dL (8.4-10.2); Carbon Dioxide 31 mmol/L (22-32); Chloride 102 mmol/L (98-107); Estimated Glomerular Filt Rate > 60 mL/min (>60); Glucose 95 mg/dL (80-110); HEMOLYSIS < 15 (0-50); Potassium 4.4 mmol/L (3.4-5.1); Sodium 136 mmol/L (137-145)
== END ==
LOC: RAD 08:22
PROVIDERS: PCP Family Medicine; Referring Provider Orthopaedic Surgery; Visit Provider Orthopaedic Surgery
DX: Z01.818 Encounter for other preprocedural examination (principal); Z01.812 Encounter for preprocedural laboratory examination; C80.1 Malignant (primary) neoplasm, unspecified; N39.0 Urinary tract infection, site not specified; R91.1 Solitary pulmonary nodule; Z91.89 Other specified personal risk factors, not elsewhere classified
CPT/HCPCS: 36415; 71046; 80048; 85025; 93005; 93010

== ENCOUNTER → 2024-04-24 09:40 | Outpatient (CLI) | payer MEDICARE, OTHER, SELFPAY ==
[2023-03-30 14:39] VITALS: BMI 31.3
== END ==
PROVIDERS: PCP Family Medicine; Referring Provider Podiatrist; Visit Provider Physician Assistant
DX: L97.512 Non-pressure chronic ulcer of other part of right foot with fat layer exposed (principal); R60.0 Localized edema; G62.9 Polyneuropathy, unspecified
CPT/HCPCS: 11042; 87070; 87075; 87205; 99213

== ENCOUNTER → 2024-04-24 10:02 | Outpatient (CLI) | payer MEDICARE, OTHER, SELFPAY ==
[2023-03-30 14:39] VITALS: BMI 31.3
[2024-04-24 11:47] LABS: Appearance Urine UA CLEAR; Bilirubin Urine UA NEGATIVE (NEGATIVE); Color Urine UA YELLOW; Glucose Urine UA NEGATIVE (Negative); Ketones Urine UA NEGATIVE (NEGATIVE); Leukocyte Esterase Urine UA 2+ (NEGATIVE); Nitrite Urine UA NEGATIVE (Negative); Occult Blood Urine UA NEGATIVE (Negative); Protein Urine UA NEGATIVE (Negative); Specific Gravity Urine UA 1.015 (1.000-1.035); Urobilinogen Urine UA 0.2 E.U./dL (0.2)
[2024-04-24 11:48] LABS: pH Urine UA 5.5 (4.5-8.0)
[2024-04-24 11:49] LABS: Urine Volume 10mL (spun)
[2024-04-24 11:51] LABS: Bacteria Urine Moderate (10-30); Culture Indicated Urine Specimen Cultured; RBC Urine None Seen (0-5/HPF); Squamous Epithelial Cell Urine 1-5 /HPF (0-5/HPF); WBC Urine 10-30/HPF (0-5/HPF)
== END ==
LOC: LAB 10:03
PROVIDERS: PCP Family Medicine; Referring Provider Orthopaedic Surgery; Visit Provider Orthopaedic Surgery
DX: N39.0 Urinary tract infection, site not specified (principal)
CPT/HCPCS: 81001; 87070; 87075; 87077; 87086; 87186; 87205

== ENCOUNTER → 2024-05-01 13:46 | Outpatient (CLI) | payer MEDICARE, OTHER, SELFPAY ==
[2023-03-30 14:39] VITALS: BMI 31.3
== END ==
PROVIDERS: PCP Family Medicine; Referring Provider Podiatrist; Visit Provider Surgery
DX: L97.512 Non-pressure chronic ulcer of other part of right foot with fat layer exposed (principal); G62.9 Polyneuropathy, unspecified; R60.0 Localized edema
CPT/HCPCS: 11042; 99213

== ENCOUNTER 2024-05-05 13:40 | Emergency (ER) | payer MEDICARE, OTHER, SELFPAY ==
[2023-03-30 14:39] VITALS: BMI 31.3
[2024-05-05] VITALS (15 sets, daily range): BP systolic 121–184; BP diastolic 58–97; PULSE 75–91; RESP 18–44; TEMP 36.7; O2SAT 94–97; BMI 34.9
--- NOTE | 2024-05-05 13:49 | DI.RAD.S_ITS ---
PROCEDURE: XR CHEST 2V INDICATIONS: shortness of breath, cough TECHNIQUE: 2 views of the chest were acquired. COMPARISON: [facility], CR, XR CHEST 2V, 04/23/2024, 7:37. FINDINGS: Surgical changes and devices: None. Lungs and pleura: Lungs are clear. No pleural effusions or pneumothorax. Mediastinum: Mediastinal contours are normal. Heart size is normal. Bones and chest wall: No suspicious bony abnormalities. Soft tissues appear unremarkable. IMPRESSION: No acute cardiopulmonary abnormality is seen. Approved by: Lakeshia Mo M.D.,Ph.D. on 05/05/2024 at 14:24
--- NOTE | 2024-05-05 13:57 | EKG_ITS ---
[address] [address] Test Date: 2024-05-05 Pat Name: Petty Christy Department: Room: Gender: Female Support Architect: JANIS : 1935 Requested By: Order Number: [id number] Reading MD: David Nobles Measurements Intervals [place] Rate: 77 P: 40 [place]: 158 QRS: 6 QRSD: 112 T: 18 QT: 404 QTc: 457 Interpretive Statements Normal sinus rhythm Low voltage QRS Incomplete right bundle branch block Electronically Signed On 05-06-2024 16:36:10 PDT by David Nobles
[2024-05-05 14:09] LABS: Add Manual Diff / Slide Review NO; Basophils Absolute Auto 0 /uL (0-100); Basophils Percent Auto 0.4 % (0-2); Eosinophils Absolute Auto 1000 /uL (0-450); Eosinophils Percent Auto 10.6 % (2-4); Hemoglobin 12.8 g/dL (12.0-16.0); Lymphocytes Absolute Auto 1100 /uL (1100-4500); Lymphocytes Percent Auto 12.5 % (25-40); Mean Corpuscular HGB Conc 33.8 % (30-36); Mean Corpuscular Hemoglobin 29.9 PG (26-34); Mean Corpuscular Volume 88.5 fL (80-100); Monocytes Absolute Auto 800 /uL (0-900); Monocytes Percent Auto 8.3 % (3-14); Neutrophils Absolute Auto 6200 /uL (1500-7000); Neutrophils Percent Auto 68.2 % (50-75); Platelet Count 254 X10^3/uL (150-400); Red Blood Cell Count 4.29 X10^6/uL (4.0-5.2); Red Cell Distribution Width 13.6 % (11.6-14.8); White Blood Cell Count 9.2 X10^3/uL (4.5-11.0)
[2024-05-05 14:21] LABS: Alanine Aminotransferase 30 IU/L (<35); Albumin 4.4 g/dL (3.5-5.0); Albumin Globulin Ratio 1.6 (1.0-2.8); Alkaline Phosphatase 81 U/L (38-126); Aspartate Aminotransferase 33 IU/L (14-36); BUN Creatinine Ratio 38.8 (6-22); Bilirubin Total 0.4 mg/dL (0.2-1.3); Blood Urea Nitrogen 26 mg/dL (7-17); Calcium 9.5 mg/dL (8.4-10.2); Carbon Dioxide 29 mmol/L (22-32); Chloride 104 mmol/L (98-107); Creatine Kinase 66 U/L (30-135); Estimated Glomerular Filt Rate > 60 mL/min (>60); Globulin 2.8 g/dL (1.7-4.1); Glucose 97 mg/dL (80-110); HEMOLYSIS < 15 (0-50); Potassium 4.3 mmol/L (3.4-5.1); Sodium 136 mmol/L (137-145); Total Protein 7.2 g/dL (6.3-8.2)
[2024-05-05 14:32] LABS: Troponin I < 0.012 ng/mL (0.01-0.034)
[2024-05-05 14:38] LABS: Procalcitonin 0.583 ng/mL (<0.5)
[2024-05-05 14:56] LABS: Adenovirus Not Detected (Not Detect); B. parapertussis Not Detected (Not Detecte); Bordetella pertussis Not Detected (Not Detect); Chlamydophila pneumoniae Not Detected (Not Detect); Coronavirus 229E Not Detected (Not Detect); Coronavirus HKU1 Not Detected (Not Detect); Coronavirus NL 63 Not Detected (Not Detect); Coronavirus OC43 Not Detected (Not Detect); Human Metapneumovirus Not Detected (Not Detect); Human Rhinovirus/Enterovirus Not Detected (Not Detect); Influenza A Not Detected (Not Detect); Influenza B Not Detected (Not Detect); Mycoplasma pneumoniae Not Detected (Not Detect); Parainfluenza Virus 1 Not Detected (Not Detect); Parainfluenza Virus 2 Not Detected (Not Detect); Parainfluenza Virus 3 Not Detected (Not Detect); Parainfluenza Virus 4 Not Detected (Not Detect); Respiratory Syncytial Virus Not Detected (Not Detect); SARS- CoV-2 Not Detected (Not Detecte)
[2024-05-05 15:11] LABS: Lactate (Lactic Acid) 0.9 mmol/L (0.7-2.1)
--- NOTE | 2024-05-05 15:31 | PC.NURSE ---
patient was recently diagnosed with COPD. She is not on home . her saturation is 96% on RA and her breathing is non labored and rate is within normal limits. She denies chest pain. On Monday she had cough but it was at night and cant say if the phlegm was colored or not. she is not in respiratory distress. her concern is that she didnt want to get worse at home
--- NOTE | 2024-05-05 16:54 | ED.SOB ---
HPI - SOB/Dyspnea General Chief Complaint: Shortness of Breath/Dyspnea Stated Complaint: SOB chest congestion, pain to cough Time Seen by Provider: 05/05/24 15:56 Source: patient Mode of arrival: Ambulatory Limitations: no limitations History of Present Illness HPI Narrative: Patient is an 88-year-old female history of hyperlipidemia hypothyroid restrictive lung disease presenting today with cough. She reports that 2 days ago she has had a productive cough where she coughed up stuff onto her pajamas. She wiped it away and did not look at it. She is continued to feel congested. She denies significant shortness of breath with exertion she denies any sort of chest pain. She has not had any fever. She sometimes still coughs up stuff. She reports that she has right ankle swelling. According to PCP no she has had swelling at least since April 30. At that time did not look hypervolemic held off on fluids she continues to have swelling but it does not actually appear much worse. Related Data Home Medications Medication Instructions Recorded Confirmed cholecalciferol (vitamin D3) 50 2,000 unit PO BID 04/03/18 02/13/24 mcg (2,000 unit) capsule vitamins A,C,P-zlpe-[place] 2,148 2 tab PO BID 08/26/20 02/13/24 mcg-113 mg-45 mg-17.4 mg tablet (PreserVision AREDS) cephalexin 500 mg tablet 500 mg PO 4XD 02/13/24 02/13/24 clobetasol 0.05 % scalp solution topical 02/13/24 02/13/24 multivitamin with minerals 1 tab PO DAILY 02/13/24 02/13/24 (Hair,Skin and Nails tablet) nystatin-triamcinolone 100,000 topical 02/13/24 02/13/24 unit/gram-0.1 % topical ointment theraworx topical 02/13/24 vitamin E 200 unit capsule 45 mg PO DAILY 02/13/24 02/13/24 Previous Rx's Medication Instructions Recorded Disabled Parking Permit #1 ea 02/21/22 mupirocin 2 % topical ointment 1 applic topical BID #22 grams 05/13/22 olanzapine 5 mg tablet 5 mg PO BEDTIME #90 tabs 09/19/23 simvastatin 40 mg tablet 40 mg PO BEDTIME #90 tabs 09/19/23 sertraline 100 mg tablet 150 mg (1.5 x 100 mg) PO DAILY 11/03/23 #135 tabs tolterodine 4 mg capsule,extended See Rx Instructions .Route 01/18/24 release 24 hr .COMPLEX #90 caps quetiapine 25 mg tablet (Seroquel) 25 mg PO BEDTIME PRN sleep #30 02/05/24 tabs trazodone 50 mg tablet 25 mg (1/2 x 50 mg) PO BEDTIME PRN 03/04/24 sleep #30 tabs omeprazole 20 mg capsule,delayed 20 mg PO QDAY #90 caps 03/19/24 release Allergies Allergy/AdvReac Type Severity Reaction Status Date / Time digoxin [DIGOXIN] Allergy Mild LIGHTHEADED Verified 05/05/24 13:49 latex [LATEX] Allergy Mild Verified 05/05/24 13:49 silver Allergy Mild BLISTERS Verified 05/05/24 13:49 (FROM TEGADERM MESH) sulfamethoxazole Allergy Mild Rash Verified 05/05/24 13:49 [From Bactrim] trimethoprim [From Bactrim] Allergy Mild Rash Verified 05/05/24 13:49 cephalexin AdvReac Nausea Verified 05/05/24 13:49 fluconazole AdvReac Nausea Verified 05/05/24 13:49 Patient History Medical History (Updated 05/05/24 @ 17:29 by Pratima Sutherland DO) Fall Chronic prescription benzodiazepine use Pulmonary nodule less than 6 mm in diameter with low risk for malignant neoplasm (~07/2020) Peripheral neuropathy Bronchitis Abnormal LFTs Restrictive lung disease Dysphagia, pharyngeal phase Obesity (BMI 30-39.9) Urinary incontinence (2004) Foot pain, left (2009) Ankle pain, left (2009) Lumbar spinal stenosis Cataract (03/2014) Hyperlipidemia Hypothyroidism 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) Essential tremor (05/19/15) Urge incontinence of urine (05/14/15) Chronic lumbar radiculopathy (08/26/14) Chronic left shoulder pain (12/25/17) Relationship problem with family member Internal hemorrhoids (~08/2020) Feared complaint without diagnosis Allergy to sulfa drugs Tinnitus (~2014) Chicken pox Mumps (1966) Surgical History History of esophagogastroduodenoscopy (EGD) (~03/2016) Anesthesia H/O abdominal surgery (03/2007) History of vaginal surgery (~2008) History of partial knee replacement (2007) History of partial knee replacement (2003) History of hip replacement (2001) History of hip replacement (1996) Status post hysterectomy with oophorectomy (1969) Family History Father Heart disease Pulmonary embolism Grandmother Heart disease Heart attack Sister Cancer Melanoma Grandmother No problems noted. Mother Dementia Grandfather Pneumonia Grandfather Dementia Daughter Depression Social History marital status: details: 07/22/2007 number of children: 1 household members: none lives independently: Yes housing: condominium pets and animals: No occupational status: previously employed Smoking Status: Never smoker alcohol intake: current substance use type: does not use Smoking Status: Never smoker alcohol intake frequency: other Substance Use Type: does not use Exam Initial Vital Signs Initial Vital Signs: Vital Signs Temperature 98.1 F 05/05/24 13:45 Pulse Rate 87 05/05/24 13:45 Respiratory Rate 22 05/05/24 13:45 Blood Pressure 140/62 05/05/24 13:45 Pulse Oximetry 96 05/05/24 13:45 Oxygen Delivery Method Room Air 05/05/24 13:45 GENERAL: Alert pleasant 88-year-old female and in no acute distress. HEENT: Head atraumatic,EOMI, pupils reactive, face symmetric, moist mucous membranes CARDIOVASCULAR: Regular rate and rhythm without murmurs, rubs or gallops. RESPIRATORY: No conversational dyspnea some mild expiratory wheezing ABDOMEN: Soft, nontender. Normoactive bowel sounds all 4 quadrants. No guarding or rebound. EXTREMITIES: Normal range of motion, no clubbing. Neurovascularly intact Right lower extremity mild erythema +1 pitting edema NEUROLOGICAL: Alert and oriented x4.Normal gait and speech. SKIN: Warm, dry, no laceration, no petechiae, no rashes or lesions. Course Orders Ordered: ED Orders 05/05/24 13:49 XR chest 2V Stat EKG-12 Lead Stat 05/05/24 13:57 BNP [NT-proBNP (BNP-Adult 18+)] Stat Complete Blood Count AUTO DIFF Stat Comprehensive Metabolic Panel Stat Lactate (Lactic Acid) Stat PCT [Procalcitonin] Stat Respiratory Panel (Film Array) Stat Troponin & CK Cardiac Panel Stat Discontinued Medications Albuterol (Albuterol Hfa Prepack) 1 box MISC DIRECTED ONE Stop: 05/05/24 17:28 Last Admin: 05/05/24 17:46 Dose: 1 box Documented By: RB Albuterol/Ipratropium (Albuterol/Ipratropium 3 Ml Ampul) 3 ml INH NOW ONE Stop: 05/05/24 17:02 Last Admin: 05/05/24 17:08 Dose: 3 ml Documented By: YAMILETH Vital Signs Vital signs: Vital Signs - 8 hr 05/05/24 13:45 05/05/24 14:31 05/05/24 14:32 Temperature 98.1 F Pulse Rate 87 83 Respiratory Rate 22 Blood Pressure 140/62 Pulse Oximetry 96 94 94 Oxygen Delivery Method Room Air 05/05/24 14:32 05/05/24 15:00 05/05/24 15:00 Temperature Pulse Rate 75 Respiratory Rate 23 Blood Pressure 134/71 121/58 L Pulse Oximetry 95 Oxygen Delivery Method 05/05/24 15:30 05/05/24 15:31 05/05/24 15:31 Temperature Pulse Rate 79 78 Respiratory Rate 26 H 25 H Blood Pressure 176/80 H Pulse Oximetry 96 96 Oxygen Delivery Method 05/05/24 15:46 05/05/24 15:46 05/05/24 16:00 Temperature Pulse Rate 80 82 Respiratory Rate 18 Blood Pressure 184/86 H Pulse Oximetry 96 95 Oxygen Delivery Method 05/05/24 16:01 05/05/24 16:01 05/05/24 16:30 Temperature Pulse Rate 81 79 Respiratory Rate 18 21 Blood Pressure 152/70 H Pulse Oximetry 96 95 Oxygen Delivery Method 05/05/24 16:31 05/05/24 16:31 05/05/24 17:00 Temperature Pulse Rate 79 91 H Respiratory Rate 25 H 37 H Blood Pressure 149/70 H Pulse Oximetry 97 96 Oxygen Delivery Method 05/05/24 17:01 05/05/24 17:01 05/05/24 17:30 Temperature Pulse Rate 87 88 Respiratory Rate 33 H 29 H Blood Pressure 159/93 H Pulse Oximetry 94 97 Oxygen Delivery Method 05/05/24 17:31 05/05/24 17:31 Temperature Pulse Rate 87 Respiratory Rate 44 H Blood Pressure 169/97 H Pulse Oximetry 95 Oxygen Delivery Method MDM - SOB/Dyspnea Lab Data 05/05/24 13:57 05/05/24 13:57 Labs: Lab Results 05/05/24 Range/Units 13:57 WBC 9.2 (4.5-11.0) X10^3/uL RBC 4.29 (4.0-5.2) X10^6/uL Hgb 12.8 (12.0-16.0) g/dL Hct 38.0 (36-46) % MCV 88.5 (80-100) fL MCH 29.9 (26-34) PG MCHC 33.8 (30-36) % RDW 13.6 (11.6-14.8) % Plt Count 254 (150-400) X10^3/uL Neut % (Auto) 68.2 (50-75) % Lymph % (Auto) 12.5 L (25-40) % [place] % (Auto) 8.3 (3-14) % Eos % (Auto) 10.6 H (2-4) % Baso % (Auto) 0.4 (0-2) % Neut # (Auto) 6200 (9962-8882) /uL Lymph # (Auto) 1100 (9579-2239) /uL [place] # (Auto) 800 (0-900) /uL Eos # (Auto) 1000 H (0-450) /uL Baso # (Auto) 0 (0-100) /uL Sodium 136 L (137-145) mmol/L Potassium 4.3 (3.4-5.1) mmol/L Chloride 104 (98-107) mmol/L Carbon Dioxide 29 (22-32) mmol/L BUN 26 H (7-17) mg/dL Creatinine 0.67 (0.52-1.04) mg/dL Estimated GFR > 60 (>60) mL/min BUN/Creatinine Ratio 38.8 H (6-22) Glucose 97 (80-110) mg/dL Lactate 0.9 (0.7-2.1) mmol/L Calcium 9.5 (8.4-10.2) mg/dL Total Bilirubin 0.4 (0.2-1.3) mg/dL AST 33 (14-36) IU/L ALT 30 (<35) IU/L Alkaline Phosphatase 81 (38-126) U/L Total Creatine Kinase 66 (30-135) U/L Troponin I < 0.012 (0.01-0.034) ng/mL NT-Pro-B Natriuret Pep 256 (<450) pg/mL Total Protein 7.2 (6.3-8.2) g/dL Albumin 4.4 (3.5-5.0) g/dL Globulin 2.8 (1.7-4.1) g/dL Albumin/Globulin Ratio 1.6 (1.0-2.8) Procalcitonin 0.583 H (<0.5) ng/mL Chlamy pneumoniae PCR Not detected (Not Detect) Adenovirus (PCR) Not detected (Not Detect) B.parapertussis DNA PCR Not detected (Not Detecte) Coronavirus OC43 (PCR) Not detected (Not Detect) Coronavirus HKU1 (PCR) Not detected (Not Detect) Coronavirus 229E (PCR) Not detected (Not Detect) SARS-CoV-2 (PCR) Not detected (Not Detecte) Coronavirus NL63 (PCR) Not detected (Not Detect) Human Metapneumovir PCR Not detected (Not Detect) Influenza Type A (PCR) Not detected (Not Detect) Influenza Type B (PCR) Not detected (Not Detect) M. pneumoniae (PCR) Not detected (Not Detect) Parainfluenza 1 (PCR) Not detected (Not Detect) Parainfluenza 2 (PCR) Not detected (Not Detect) Parainfluenza 3 (PCR) Not detected (Not Detect) Parainfluenza 4 (PCR) Not detected (Not Detect) RSV (PCR) Not detected (Not Detect) Entero/Rhino (PCR) Not detected (Not Detect) Imaging Data Chest x-ray: Radiologist's Impression: PROCEDURE: XR CHEST 2V INDICATIONS: shortness of breath, cough TECHNIQUE: 2 views of the chest were acquired. COMPARISON: [facility], , XR CHEST 2V, 04/23/2024, 7:37. FINDINGS: Surgical changes and devices: None. Lungs and pleura: Lungs are clear. No pleural effusions or pneumothorax. Mediastinum: Mediastinal contours are normal. Heart size is normal. Bones and chest wall: No suspicious bony abnormalities. Soft tissues appear unremarkable. IMPRESSION: No acute cardiopulmonary abnormality is seen. Approved by: Lakeshia Mo M.D.,Ph.D. on 05/05/2024 at 14:24 ECG Data Attestation: I personally reviewed and interpreted this ECG as follows: Prior ECG tracings: available for review Interpretation: Normal sinus rhythm rate 77 NM interval 158 QRS [address] changes MDM Narrative Medical decision making narrative: Patient 88-year-old female history of restrictive lung disease presents today with productive cough and some increased shortness of breath. Blood work and vitals are all reassuring. On exam she does have some mild expiratory wheeze but no conversational dyspnea. She has previously had inhalers that she has not used recently. Blood work has been reviewed: WBC is 9.2, hemoglobin 12.8 hematocrit 38.0 platelets 254, sodium 136, potassium 4.3, chloride 104, carbon dioxide 29, BUN 26, creatinine 0.67, glucose 97, lactate is 0.9 procalcitonin 0.5, bilirubin 0.4 AST 33, ALT 30, alk-phos 81, troponin negative Viral panel negative Chest x-ray no acute cardiopulmonary process Patient overall appears well she is given albuterol here which does help some. She has an appointment with her primary care provider. At this time she likely has a viral syndrome which does not indicate for antibiotics #65: Appropriate Treatment for Patients with URI x The patient was diagnosed with upper respiratory infection and was not prescribed or dispensed an antibiotic. [SATISFIES MIPS PERFORMANCE] [] The patient has competing comorbid condition within the last 12 months. The comorbid condition was [] (e.g., neutropenia, cystic fibrosis, chronic bronchitis, pulmonary edema, respiratory failure, rheumatoid lung disease). [MIPS PERFORMANCE EXCEPTION/EXCLUSION] [] The patient is already on antibiotics, or has taken them within the last 30 days. [MIPS PERFORMANCE EXCEPTION/EXCLUSION] [] The patient had a competing diagnosis of [] (e.g. acute otitis media, chronic sinusitis, cellulitis, UTI, etc.). [MIPS PERFORMANCE EXCEPTION/EXCLUSION] [] The patient was diagnosed with upper respiratory infection and was prescribed or dispensed an antibiotic. [DOES NOT SATISFY MIPS PERFORMANCE] Discharge Plan Departure Patient Disposition: Home Clinical Impression: Upper respiratory infection Instructions: DI for Viral Upper Respiratory Infection -- Adult Activity Restrictions/Additional Instructions: *You have been diagnosed with upper respiratory infection *What to do: At this time no need for antibiotics. Please see your doctor tomorrow as already scheduled *Continue to take medications as directed Albuterol 1-2 puffs with spacer as needed for coughing or shortness of *Follow up with your primary care provider in 2-3 days or call [phone] *Return to ER if you should have increasing shortness of breath, chest pain weakness confusion or any new, worsening or concerning symptoms Prescriptions: No Action (DME) Disabled Parking Permit See Rx Instructions .ROUTE .MEDSUPPLY Qty: 1 0RF Rx Instructions: Valid for 5 years sertraline 100 mg tablet 150 mg PO DAILY Qty: 135 3RF tolterodine 4 mg capsule,extended release 24hr See Rx Instructions .ROUTE .COMPLEX Qty: 90 0RF Hold Instructions: Trialing other med Dose Instruction: TAKE 1 CAPSULE BY MOUTH EVERY DAY Rx Instructions: TAKE 1 CAPSULE BY MOUTH EVERY DAY quetiapine [Seroquel] 25 mg tablet 25 mg PO BEDTIME PRN (Reason: sleep ) Qty: 30 0RF trazodone 50 mg tablet 25 mg PO BEDTIME PRN (Reason: sleep) Qty: 30 1RF omeprazole 20 mg capsule,delayed release(DR/EC) 20 mg PO QDAY Qty: 90 2RF simvastatin 40 mg tablet 40 mg PO BEDTIME Qty: 90 3RF olanzapine 5 mg tablet 5 mg PO BEDTIME Qty: 90 3RF cholecalciferol (vitamin D3) 2,000 unit capsule 2,000 unit PO BID mupirocin 2 % ointment 1 applic topical BID Qty: 22 3RF clobetasol 0.05 % solution topical nystatin-triamcinolone 100,000-0.1 unit/gram-% ointment topical theraworx topical cephalexin 500 mg tablet 500 mg PO 4XD vitamin E 200 unit capsule 45 mg PO DAILY Hair,Skin and Nails Tablet 1 tab PO DAILY PreserVision AREDS [id number],160-113-100 [id number]-[id number]-[id number] Tablet 2 tab PO BID Referrals: Ariella Boo DO [Primary Care Provider] - Stand Alone Forms: Patient Portal/API
[2024-05-05] MEDS: ALBUTEROL/IPRATROPIUM 3 ML AMPUL INH (17:08)
[2024-05-05 17:22] LABS: NT-proBNP (BNP-Adult 18+) 256 pg/mL (<450)
[2024-05-05] MEDS: ALBUTEROL HFA PREPACK 1 BOX MISC (17:46)
== END 2024-05-05 17:51 | disposition home or self-care (01) ==
PROVIDERS: Emergency Provider Emergency Medicine; PCP Family Medicine
DX: J06.9 Acute upper respiratory infection, unspecified (principal); R06.02 Shortness of breath; Z11.52 Encounter for screening for COVID-19
CPT/HCPCS: 36415; 71046; 80053; 82550; 83605; 83880; 84145; 84484; 85025; 87633; 93005; 94640; 99284

== ENCOUNTER → 2024-05-08 10:29 | Outpatient (CLI) | payer MEDICARE, OTHER, SELFPAY ==
[2023-03-30 14:39] VITALS: BMI 31.3
== END ==
LOC: WC 10:33
PROVIDERS: PCP Family Medicine; Referring Provider Podiatrist; Visit Provider Surgery
DX: L97.512 Non-pressure chronic ulcer of other part of right foot with fat layer exposed (principal); R60.0 Localized edema; G60.9 Hereditary and idiopathic neuropathy, unspecified
CPT/HCPCS: 99212; 99213

== ENCOUNTER → 2024-05-15 10:01 | Outpatient (CLI) | payer MEDICARE, OTHER, SELFPAY ==
[2023-03-30 14:39] VITALS: BMI 31.3
== END ==
LOC: WC 10:02
PROVIDERS: PCP Family Medicine; Referring Provider Podiatrist; Visit Provider Surgery
DX: R60.0 Localized edema (principal); G62.9 Polyneuropathy, unspecified
CPT/HCPCS: 99212; 99213

== ENCOUNTER → 2024-05-22 13:39 | Outpatient (CLI) | payer MEDICARE, OTHER, SELFPAY ==
[2023-03-30 14:39] VITALS: BMI 31.3
== END ==
PROVIDERS: PCP Family Medicine; Referring Provider Podiatrist; Visit Provider Surgery
DX: Z09 Encounter for follow-up examination after completed treatment for conditions other than malignant neoplasm (principal); Z87.2 Personal history of diseases of the skin and subcutaneous tissue; L97.512 Non-pressure chronic ulcer of other part of right foot with fat layer exposed; G60.9 Hereditary and idiopathic neuropathy, unspecified
CPT/HCPCS: 99212; 99213

== ENCOUNTER → 2024-06-17 11:48 | Outpatient (CLI) | payer MEDICARE, OTHER, SELFPAY ==
[2023-03-30 14:39] VITALS: BMI 31.3
== END ==
LOC: WC 11:49
PROVIDERS: PCP Family Medicine; Referring Provider Family Medicine; Visit Provider Surgery
DX: Z09 Encounter for follow-up examination after completed treatment for conditions other than malignant neoplasm (principal); Z87.2 Personal history of diseases of the skin and subcutaneous tissue; L97.512 Non-pressure chronic ulcer of other part of right foot with fat layer exposed
CPT/HCPCS: 99211; 99213

== ENCOUNTER 2024-06-25 10:57 | Emergency (ER) | payer MEDICARE, OTHER, SELFPAY ==
[2023-03-30 14:39] VITALS: BMI 31.3
[2024-06-25] VITALS (12 sets, daily range): BP systolic 123–156; BP diastolic 65–79; PULSE 77–99; RESP 22–34; TEMP 36.2; O2SAT 93–98; BMI 34.9
--- NOTE | 2024-06-25 11:04 | DI.RAD.S_ITS ---
PROCEDURE: XR CHEST 1V INDICATIONS: Shortness of breath TECHNIQUE: One view of the chest was acquired. COMPARISON: [facility], CR, XR CHEST 2V, 05/05/2024, 13:52. FINDINGS: Surgical changes and devices: None. Lungs and pleura: Lungs are clear. No pleural effusions or pneumothorax. Mediastinum: Mediastinal contours appear normal. Heart size is normal. Bones and chest wall: No suspicious bony lesions. Overlying soft tissues appear unremarkable. IMPRESSION: No acute cardiopulmonary abnormality is seen. Dictated by: Herrera Farris M.D. on 06/25/2024 at 13:39 Approved by: Herrera Farris M.D. on 06/25/2024 at 13:39
--- NOTE | 2024-06-25 11:11 | EKG_ITS ---
[facility] [address] [place] [address] Test Date: 2024-06-25 Pat Name: Petty Christy Department: [facility] Room: Gender: Female Bank Accountant: donavan : 1935 Requested By: Order Number: [id number] Reading MD: Zaheer Betancourt MD Measurements Intervals [place] Rate: 81 P: 47 AL: 156 QRS: 15 QRSD: 110 T: 21 QT: 386 QTc: 448 Interpretive Statements Normal sinus rhythm Low voltage QRS Incomplete right bundle branch block Nonspecific ST and T wave abnormality NO SIGNIFICANT CHANGE FROM PRIOR TRACING Electronically Signed On 06-25-2024 11:51:10 PDT by Zaheer Betancourt MD
--- NOTE | 2024-06-25 11:15 | ED.SOB ---
HPI - SOB/Dyspnea General Chief Complaint: Shortness of Breath/Dyspnea Stated Complaint: Cough, stuffy nose, Mild chest pain Time Seen by Provider: 06/25/24 11:15 History of Present Illness HPI Narrative: Patient is an 88-year-old female history of reactive airway hyperlipidemia hypothyroid presenting today with 2 weeks of nasal congestion and cough. She denies any fever or productive cough. No significant chest pain. She was previously given it albuterol inhaler with a spacer and does not feel like it is quite working. No significant fever or lower extremity swelling. She overall just does not feel like she is getting better. She is currently afebrile. Related Data Home Medications Medication Instructions Recorded Confirmed cholecalciferol (vitamin D3) 50 2,000 unit PO BID 04/03/18 05/06/24 mcg (2,000 unit) capsule vitamins A,C,P-gtti-bptojl 2,148 2 tab PO BID 08/26/20 05/06/24 mcg-113 mg-45 mg-17.4 mg tablet (PreserVision AREDS) cephalexin 500 mg tablet 500 mg PO 4XD 02/13/24 05/06/24 clobetasol 0.05 % scalp solution topical 02/13/24 05/06/24 multivitamin with minerals 1 tab PO DAILY 02/13/24 05/06/24 (Hair,Skin and Nails tablet) nystatin-triamcinolone 100,000 topical 02/13/24 05/06/24 unit/gram-0.1 % topical ointment theraworx topical 02/13/24 05/06/24 vitamin E 200 unit capsule 45 mg PO DAILY 02/13/24 05/06/24 Previous Rx's Medication Instructions Recorded Disabled Parking Permit #1 ea 02/21/22 mupirocin 2 % topical ointment 1 applic topical BID #22 grams 05/13/22 olanzapine 5 mg tablet 5 mg PO BEDTIME #90 tabs 09/19/23 simvastatin 40 mg tablet 40 mg PO BEDTIME #90 tabs 09/19/23 sertraline 100 mg tablet 150 mg (1.5 x 100 mg) PO DAILY 11/03/23 #135 tabs trazodone 50 mg tablet 25 mg (1/2 x 50 mg) PO BEDTIME PRN 03/04/24 sleep #30 tabs omeprazole 20 mg capsule,delayed 20 mg PO QDAY #90 caps 03/19/24 release pregabalin 75 mg capsule (Lyrica) 75 mg PO BID #60 caps 05/06/24 tolterodine 4 mg capsule,extended See Rx Instructions .Route 05/06/24 release 24 hr .COMPLEX #90 caps albuterol sulfate 90 mcg/actuation 2 puff inhalation Q6H PRN 05/24/24 aerosol inhaler bronchospasm #18 grams quetiapine 25 mg tablet (Seroquel) 25 mg PO BEDTIME PRN sleep #30 06/03/24 tabs cetirizine 10 mg tablet 10 mg PO DAILY PRN allergy 06/25/24 symptoms #14 tabs prednisone 20 mg tablet 40 mg (2 x 20 mg) PO DAILY #10 tabs 06/25/24 Allergies Allergy/AdvReac Type Severity Reaction Status Date / Time digoxin [DIGOXIN] Allergy Mild LIGHTHEADED Verified 05/06/24 11:22 latex [LATEX] Allergy Mild Verified 05/06/24 11:22 silver Allergy Mild BLISTERS Verified 05/06/24 11:22 (FROM TEGADERM MESH) sulfamethoxazole Allergy Mild Rash Verified 05/06/24 11:22 [From Bactrim] trimethoprim [From Bactrim] Allergy Mild Rash Verified 05/06/24 11:22 cephalexin AdvReac Nausea Verified 05/06/24 11:22 fluconazole AdvReac Nausea Verified 05/06/24 11:22 Patient History Medical History Fall Chronic prescription benzodiazepine use Pulmonary nodule less than 6 mm in diameter with low risk for malignant neoplasm (~07/2020) Peripheral neuropathy Bronchitis Abnormal LFTs Restrictive lung disease Dysphagia, pharyngeal phase Obesity (BMI 30-39.9) Urinary incontinence (2004) Foot pain, left (2009) Ankle pain, left (2009) Lumbar spinal stenosis Cataract (03/2014) Hyperlipidemia Hypothyroidism 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) Essential tremor (05/19/15) Urge incontinence of urine (05/14/15) Chronic lumbar radiculopathy (08/26/14) Chronic left shoulder pain (12/25/17) Relationship problem with family member Internal hemorrhoids (~08/2020) Feared complaint without diagnosis Allergy to sulfa drugs Tinnitus (~2014) Chicken pox Mumps (1967) Surgical History History of esophagogastroduodenoscopy (EGD) (~03/2016) Anesthesia H/O abdominal surgery (03/2007) History of vaginal surgery (~2008) History of partial knee replacement (2007) History of partial knee replacement (2003) History of hip replacement (2001) History of hip replacement (1996) Status post hysterectomy with oophorectomy (1969) Family History Father Heart disease Pulmonary embolism Grandmother Heart disease Heart attack Sister Cancer Melanoma Grandmother No problems noted. Mother Dementia Grandfather Pneumonia Grandfather Dementia Daughter Depression Social History marital status: details: 07/22/2007 number of children: 1 household members: none lives independently: Yes [facility] pets and animals: No occupational status: previously employed Smoking Status: Never smoker alcohol intake: current substance use type: does not use Smoking Status: Never smoker alcohol intake frequency: other Substance Use Type: does not use Exam Initial Vital Signs Initial Vital Signs: Vital Signs Temperature 97.2 F L 06/25/24 11:01 Pulse Rate 80 06/25/24 11:01 Respiratory Rate 22 06/25/24 11:01 Blood Pressure 136/77 06/25/24 11:01 Pulse Oximetry 93 06/25/24 11:01 Oxygen Delivery Method Room Air 06/25/24 11:01 GENERAL: Alert 88-year-old female HEENT: Head atraumatic,EOMI, pupils reactive, face symmetric, [moist] mucous membranes CARDIOVASCULAR: Regular rate and rhythm without murmurs, rubs or gallops. RESPIRATORY: No significant respiratory distress but she has wheezing inspiratory expiratory diffusely throughout no hypoxia no coughing with deep breaths ABDOMEN: Soft, nontender. Normoactive bowel sounds all 4 quadrants. No guarding or rebound. EXTREMITIES: Normal range of motion, no clubbing or edema. Neurovascularly intact NEUROLOGICAL: Alert and oriented x4.Normal gait and speech SKIN: Warm, dry, no laceration, no petechiae, no rashes or lesions. Course Orders Ordered: ED Orders 06/25/24 11:04 XR chest 1V Stat EKG-12 Lead Stat Measure peak expiratory flow ONCE RT Consult Eval and Treat NOW 06/25/24 11:10 Complete Blood Count AUTO DIFF Stat Comprehensive Metabolic Panel Stat Lactate (Lactic Acid) Stat NT-proBNP (BNP-Adult 18+) Stat Prothrombin Time INR Stat Troponin I Stat 06/25/24 11:35 Respiratory Panel (Film Array) Stat Discontinued Medications Albuterol/Ipratropium (Albuterol/Ipratropium 3 Ml Ampul) 3 ml INH NOW ONE Stop: 06/25/24 11:17 Last Admin: 06/25/24 11:25 Dose: 3 ml Documented By: YAMILETH Albuterol/Ipratropium (Albuterol/Ipratropium 3 Ml Ampul) 3 ml INH NOW ONE Stop: 06/25/24 11:48 Last Admin: 06/25/24 11:52 Dose: 3 ml Documented By: YAMILETH Albuterol/Ipratropium (Albuterol/Ipratropium 3 Ml Ampul) 3 ml INH NOW ONE Stop: 06/25/24 12:21 Last Admin: 06/25/24 12:25 Dose: 3 ml Documented By: YAMILETH Methylprednisolone (Methylprednisolone 125 Mg/2 Ml Vial) 125 mg IV NOW ONE Stop: 06/25/24 11:27 Last Admin: 06/25/24 11:34 Dose: 125 mg Documented By: ANGELO Vital Signs Vital signs: Vital Signs - 8 hr 06/25/24 11:01 06/25/24 11:07 06/25/24 11:28 Temperature 97.2 F L Pulse Rate 80 90 Respiratory Rate 22 Blood Pressure 136/77 Pulse Oximetry 93 93 96 Oxygen Delivery Method Room Air Room Air 06/25/24 11:30 06/25/24 11:53 06/25/24 12:00 Temperature Pulse Rate 81 77 Respiratory Rate 23 Blood Pressure Pulse Oximetry 96 94 97 Oxygen Delivery Method Room Air Room Air 06/25/24 12:18 06/25/24 12:18 06/25/24 12:30 Temperature Pulse Rate 83 Respiratory Rate 24 Blood Pressure 123/74 123/68 Pulse Oximetry 94 Oxygen Delivery Method 06/25/24 12:30 06/25/24 13:00 06/25/24 13:01 Temperature Pulse Rate 81 99 H 98 H Respiratory Rate 25 H 32 H 34 H Blood Pressure Pulse Oximetry 98 95 97 Oxygen Delivery Method 06/25/24 13:01 06/25/24 13:30 06/25/24 13:30 Temperature Pulse Rate 98 H Respiratory Rate 32 H Blood Pressure 156/72 H 141/79 H Pulse Oximetry Oxygen Delivery Method 06/25/24 14:00 Temperature Pulse Rate 99 H Respiratory Rate 22 Blood Pressure 135/65 Pulse Oximetry 95 Oxygen Delivery Method Room Air MDM - SOB/Dyspnea Lab Data 06/25/24 11:10 06/25/24 11:10 Labs: Lab Results 06/25/24 06/25/24 Range/Units 11:10 11:35 WBC 9.0 (4.5-11.0) X10^3/uL RBC 4.68 (4.0-5.2) X10^6/uL Hgb 14.0 (12.0-16.0) g/dL Hct 41.3 (36-46) % MCV 88.3 (80-100) fL MCH 29.9 (26-34) PG MCHC 33.9 (30-36) % RDW 13.0 (11.6-14.8) % Plt Count 264 (150-400) X10^3/uL Neut % (Auto) 66.5 (50-75) % Lymph % (Auto) 14.9 L (25-40) % [place] % (Auto) 8.1 (3-14) % Eos % (Auto) 9.9 H (2-4) % Baso % (Auto) 0.6 (0-2) % Neut # (Auto) 6000 (9694-7669) /uL Lymph # (Auto) 1300 (6638-6799) /uL [place] # (Auto) 700 (0-900) /uL Eos # (Auto) 900 H (0-450) /uL Baso # (Auto) 100 (0-100) /uL PT 11.2 (9.4-12.5) SECONDS INR 1.0 (0.9-1.3) Sodium 139 (137-145) mmol/L Potassium 4.5 (3.4-5.1) mmol/L Chloride 104 (98-107) mmol/L Carbon Dioxide 31 (22-32) mmol/L BUN 20 H (7-17) mg/dL Creatinine 0.65 (0.52-1.04) mg/dL Estimated GFR > 60 (>60) mL/min BUN/Creatinine Ratio 30.8 H (6-22) Glucose 84 (80-110) mg/dL Lactate 1.5 (0.7-2.1) mmol/L Calcium 9.9 (8.4-10.2) mg/dL Total Bilirubin 0.4 (0.2-1.3) mg/dL AST 28 (14-36) IU/L ALT 29 (<35) IU/L Alkaline Phosphatase 71 (38-126) U/L Troponin I < 0.012 (0.01-0.034) ng/mL NT-Pro-B Natriuret Pep 103 (<450) pg/mL Total Protein 7.6 (6.3-8.2) g/dL Albumin 4.4 (3.5-5.0) g/dL Globulin 3.2 (1.7-4.1) g/dL Albumin/Globulin Ratio 1.4 (1.0-2.8) Chlamy pneumoniae PCR Not detected (Not Detect) Adenovirus (PCR) Not detected (Not Detect) B.parapertussis DNA PCR Not detected (Not Detecte) Coronavirus OC43 (PCR) Not detected (Not Detect) Coronavirus HKU1 (PCR) Not detected (Not Detect) Coronavirus 229E (PCR) Not detected (Not Detect) SARS-CoV-2 (PCR) Not detected (Not Detecte) Coronavirus NL63 (PCR) Not detected (Not Detect) Human Metapneumovir PCR Not detected (Not Detect) Influenza Type A (PCR) Not detected (Not Detect) Influenza Type B (PCR) Not detected (Not Detect) M. pneumoniae (PCR) Not detected (Not Detect) Parainfluenza 1 (PCR) Not detected (Not Detect) Parainfluenza 2 (PCR) Not detected (Not Detect) Parainfluenza 3 (PCR) Not detected (Not Detect) Parainfluenza 4 (PCR) Not detected (Not Detect) RSV (PCR) Not detected (Not Detect) Entero/Rhino (PCR) Not detected (Not Detect) Imaging Data Chest x-ray: Radiologist's Impression: PROCEDURE: XR CHEST 1V INDICATIONS: Shortness of breath TECHNIQUE: One view of the chest was acquired. COMPARISON: [facility], , XR CHEST 2V, 05/05/2024, 13:52. FINDINGS: Surgical changes and devices: None. Lungs and pleura: Lungs are clear. No pleural effusions or pneumothorax. Mediastinum: Mediastinal contours appear normal. Heart size is normal. Bones and chest wall: No suspicious bony lesions. Overlying soft tissues appear unremarkable. IMPRESSION: No acute cardiopulmonary abnormality is seen. Dictated by: Herrera Farris M.D. on 06/25/2024 at 13:39 Approved by: Herrera Farris M.D. on 06/25/2024 at 13:39 ECG Data Attestation: I personally reviewed and interpreted this ECG as follows: Prior ECG tracings: available for review Interpretation: Normal sinus rhythm rate 81 [place] interval 156 QRS [address] changes mild artifact noted Q-wave noted in lead 3 similar to prior EKGs she MDM Narrative Medical decision making narrative: Patient is a 88-year-old female presents today with nasal congestion but is found to have bilateral wheezing. She is having some mild cough and shortness of breath. She is afebrile symptoms have been ongoing for the last 2 weeks. She overall appears well with some mild dyspnea. Blood work has been reviewed: CBC does not show any leukocytosis or anemia WBC is 10.0 hemoglobin 14.0 hematocrit 41.3 platelets are 260 CMP does not show electrolyte abnormality or AYAAN: Sodium 139 potassium 4.5 chloride 104 carbon dioxide 31 BUN 20 creatinine 0.65 glucose 84 lactate 1.5 Bilirubin 0.4 AST 28 ALT 29 Troponin negative BNP 103 Respiratory panel negative Chest x-ray has been reviewed without acute process or pneumonia EKG has been reviewed without ischemia Patient received multiple DuoNeb treatment she is overall breathing better she was never hypoxic or complaining of shortness of breath. She reports never having a smoking history does not think she has COPD. Respiratory therapy recommended pulmonary function testing as an outpatient for better inhaler control. At this time she requires no antibiotics. Put her on some prednisone to help with her pretty diffuse wheezing she has an albuterol inhaler and spacer at home. Really complaining of some nasal congestion recommended allergy medicine possibly Flonase as well. Discharge Plan Departure Patient Disposition: Home Clinical Impression: RAD (reactive airway disease), Allergic rhinitis Instructions: Allergic Rhinitis, DI for Reactive Airway Disease-Adult Activity Restrictions/Additional Instructions: *You have been diagnosed with reactive airway disease and allergic rhinitis *What to do: At this time I do recommend that he have outpatient PFTs you can get an official diagnosis for possibly different inhalers to help keep your breathing under control. I also think that your stuffy nose maybe due to allergies. You may try [id number] allergy medication *Continue to take medications as directed Prednisone 40 mg once a day for 5 days start tomorrow Cetirizine 10 mg once a day as needed for allergies and stuffy nose *Follow up with your primary care provider in 2-3 days or call [phone] *Return to ER if you should have increasing shortness of breath chest pain or any new, worsening or concerning symptoms Prescriptions: New prednisone 20 mg tablet 40 mg PO DAILY Qty: 10 0RF cetirizine 10 mg tablet 10 mg PO DAILY PRN (Reason: allergy symptoms) Qty: 14 0RF No Action (DME) Disabled Parking Permit See Rx Instructions .ROUTE .MEDSUPPLY Qty: 1 0RF Rx Instructions: Valid for 5 years sertraline 100 mg tablet 150 mg PO DAILY Qty: 135 3RF trazodone 50 mg tablet 25 mg PO BEDTIME PRN (Reason: sleep) Qty: 30 1RF omeprazole 20 mg capsule,delayed release(DR/EC) 20 mg PO QDAY Qty: 90 2RF tolterodine 4 mg capsule,extended release 24hr See Rx Instructions .ROUTE .COMPLEX Qty: 90 0RF Hold Instructions: Trialing other med Dose Instruction: TAKE 1 CAPSULE BY MOUTH EVERY DAY Rx Instructions: TAKE 1 CAPSULE BY MOUTH EVERY DAY albuterol sulfate 90 mcg/actuation HFA aerosol inhaler 2 puff INHALATION Q6H PRN (Reason: bronchospasm) Qty: 18 6RF quetiapine [Seroquel] 25 mg tablet 25 mg PO BEDTIME PRN (Reason: sleep ) Qty: 30 0RF simvastatin 40 mg tablet 40 mg PO BEDTIME Qty: 90 3RF olanzapine 5 mg tablet 5 mg PO BEDTIME Qty: 90 3RF cholecalciferol (vitamin D3) 2,000 unit capsule 2,000 unit PO BID mupirocin 2 % ointment 1 applic topical BID Qty: 22 3RF clobetasol 0.05 % solution topical nystatin-triamcinolone 100,000-0.1 unit/gram-% ointment topical theraworx topical cephalexin 500 mg tablet 500 mg PO 4XD vitamin E 200 unit capsule 45 mg PO DAILY Hair,Skin and Nails Tablet 1 tab PO DAILY PreserVision AREDS 7,160-113-100 [id number] Tablet 2 tab PO BID pregabalin [Lyrica] 75 mg capsule 75 mg PO BID Qty: 60 0RF Rx Instructions: May increase to 150 mg b.i.d. after 1 week as tolerated Referrals: Ariella Boo DO [Primary Care Provider] - Stand Alone Forms: Patient Portal/API
[2024-06-25 11:22] LABS: Add Manual Diff / Slide Review NO; Basophils Absolute Auto 100 /uL (0-100); Basophils Percent Auto 0.6 % (0-2); Eosinophils Absolute Auto 900 /uL (0-450); Eosinophils Percent Auto 9.9 % (2-4); Hematocrit 41.3 % (36-46); Lymphocytes Absolute Auto 1300 /uL (1100-4500); Lymphocytes Percent Auto 14.9 % (25-40); Mean Corpuscular HGB Conc 33.9 % (30-36); Mean Corpuscular Hemoglobin 29.9 PG (26-34); Mean Corpuscular Volume 88.3 fL (80-100); Monocytes Absolute Auto 700 /uL (0-900); Monocytes Percent Auto 8.1 % (3-14); Neutrophils Absolute Auto 6000 /uL (1500-7000); Neutrophils Percent Auto 66.5 % (50-75); Platelet Count 264 X10^3/uL (150-400); Red Blood Cell Count 4.68 X10^6/uL (4.0-5.2)
[2024-06-25] MEDS: ALBUTEROL/IPRATROPIUM 3 ML AMPUL INH ×3 (11:25→12:25)
[2024-06-25] MEDS: methylPREDNISolone 125 MG/2 ML VIAL IV (11:34)
[2024-06-25 11:35] LABS: Prothrombin Time 11.2 SECONDS (9.4-12.5)
[2024-06-25 11:40] LABS: Lactate (Lactic Acid) 1.5 mmol/L (0.7-2.1)
[2024-06-25 11:41] LABS: Alanine Aminotransferase 29 IU/L (<35); Albumin 4.4 g/dL (3.5-5.0); Albumin Globulin Ratio 1.4 (1.0-2.8); Alkaline Phosphatase 71 U/L (38-126); Aspartate Aminotransferase 28 IU/L (14-36); BUN Creatinine Ratio 30.8 (6-22); Bilirubin Total 0.4 mg/dL (0.2-1.3); Blood Urea Nitrogen 20 mg/dL (7-17); Calcium 9.9 mg/dL (8.4-10.2); Carbon Dioxide 31 mmol/L (22-32); Chloride 104 mmol/L (98-107); Estimated Glomerular Filt Rate > 60 mL/min (>60); Globulin 3.2 g/dL (1.7-4.1); Glucose 84 mg/dL (80-110); HEMOLYSIS < 15 (0-50); Potassium 4.5 mmol/L (3.4-5.1); Sodium 139 mmol/L (137-145); Total Protein 7.6 g/dL (6.3-8.2)
[2024-06-25 11:52] LABS: NT-proBNP (BNP-Adult 18+) 103 pg/mL (<450); Troponin I < 0.012 ng/mL (0.01-0.034)
[2024-06-25 12:36] LABS: Adenovirus Not Detected (Not Detect); B. parapertussis Not Detected (Not Detecte); Bordetella pertussis Not Detected (Not Detect); Chlamydophila pneumoniae Not Detected (Not Detect); Coronavirus 229E Not Detected (Not Detect); Coronavirus HKU1 Not Detected (Not Detect); Coronavirus NL 63 Not Detected (Not Detect); Coronavirus OC43 Not Detected (Not Detect); Human Metapneumovirus Not Detected (Not Detect); Human Rhinovirus/Enterovirus Not Detected (Not Detect); Influenza A Not Detected (Not Detect); Influenza B Not Detected (Not Detect); Mycoplasma pneumoniae Not Detected (Not Detect); Parainfluenza Virus 1 Not Detected (Not Detect); Parainfluenza Virus 2 Not Detected (Not Detect); Parainfluenza Virus 3 Not Detected (Not Detect); Parainfluenza Virus 4 Not Detected (Not Detect); Respiratory Syncytial Virus Not Detected (Not Detect); SARS- CoV-2 Not Detected (Not Detecte)
== END 2024-06-25 14:09 | disposition home or self-care (01) ==
PROVIDERS: Emergency Provider Emergency Medicine; PCP Family Medicine
DX: J45.909 Unspecified asthma, uncomplicated (principal); Z79.899 Other long term (current) drug therapy
CPT/HCPCS: 36415; 71045; 80053; 83605; 83880; 84484; 85025; 85610; 87633; 93005; 94640; 96374; 99284; J2919

== ENCOUNTER → 2024-07-11 09:41 | Outpatient (CLI) | payer MEDICARE, OTHER, SELFPAY ==
[2023-03-30 14:39] VITALS: BMI 31.3
== END ==
PROVIDERS: PCP Family Medicine; Referring Provider Family Medicine; Visit Provider Family Medicine
DX: J98.4 Other disorders of lung (principal); J44.9 Chronic obstructive pulmonary disease, unspecified; R94.2 Abnormal results of pulmonary function studies
CPT/HCPCS: 94060; 94726; 94729

== ENCOUNTER 2024-07-12 20:44 | Inpatient (IN) | payer MEDICARE, OTHER, SELFPAY ==
[2023-03-30 14:39] VITALS: BMI 31.3
[2024-07-12] VITALS (10 sets, daily range): BP systolic 96–181; BP diastolic 53–84; PULSE 101–122; RESP 20–51; TEMP 37.3; O2SAT 88–93
--- NOTE | 2024-07-12 21:02 | ED.GENADULT ---
HPI - General Adult General Chief complaint: Shortness of Breath/Dyspnea Stated complaint: SoB, Coughing, CoPD Time Seen by Provider: 07/12/24 21:01 Source: patient Mode of arrival: Wheelchair History of Present Illness HPI narrative: Patient is an 88-year-old female. She reports no diagnosis of COPD although she was seen here in the emergency department approximately 2 weeks ago for shortness of breath where she received nebulizers and steroids. She stated that yesterday she underwent outpatient pulmonary function test to further evaluation for potential COPD. She has no smoking history but an ex- smoked for many years. She denies any history of asthma. She states that all day today she has been very short of breath. Has also been having coughing. No fevers. No chest pain. No lower extremity swelling. She has been taking her home medicines without improvement of symptoms. It has a nonproductive cough Related Data Home Medications Medication Instructions Recorded Confirmed vitamins A,C,M-gybw-vevmhi 2,148 2 tab PO BID 08/26/20 07/13/24 mcg-113 mg-45 mg-17.4 mg tablet (PreserVision AREDS) multivitamin with minerals 1 tab PO DAILY 02/13/24 07/13/24 (Hair,Skin and Nails tablet) nystatin-triamcinolone 100,000 1 applic topical DAILY PRN yeast 02/13/24 07/13/24 unit/gram-0.1 % topical ointment lorazepam 1 mg tablet 1 - 2 mg PO BID PRN anxiety or 07/13/24 07/13/24 sleep olanzapine 5 mg tablet 5 mg PO DAILY 07/13/24 07/13/24 Previous Rx's Medication Instructions Recorded Disabled Parking Permit #1 ea 02/21/22 simvastatin 40 mg tablet 40 mg PO BEDTIME #90 tabs 09/19/23 sertraline 100 mg tablet 150 mg (1.5 x 100 mg) PO DAILY 11/03/23 #135 tabs tolterodine 4 mg capsule,extended See Rx Instructions .Route 05/06/24 release 24 hr .COMPLEX #90 caps albuterol sulfate 90 mcg/actuation 2 puff inhalation Q6H PRN 05/24/24 aerosol inhaler bronchospasm #18 grams Allergies Allergy/AdvReac Type Severity Reaction Status Date / Time digoxin [DIGOXIN] Allergy Mild LIGHTHEADED Verified 05/06/24 11:22 latex [LATEX] Allergy Mild Verified 05/06/24 11:22 silver Allergy Mild BLISTERS Verified 05/06/24 11:22 (FROM TEGADERM MESH) sulfamethoxazole Allergy Mild Rash Verified 05/06/24 11:22 [From Bactrim] trimethoprim [From Bactrim] Allergy Mild Rash Verified 05/06/24 11:22 cephalexin AdvReac Nausea Verified 05/06/24 11:22 fluconazole AdvReac Nausea Verified 05/06/24 11:22 Review of Systems Review of Systems ROS Unobtainable: All systems reviewed & are unremarkable except as noted in HPI and below Patient History Medical History Fall Chronic prescription benzodiazepine use Pulmonary nodule less than 6 mm in diameter with low risk for malignant neoplasm (~07/2020) Peripheral neuropathy Bronchitis Abnormal LFTs Restrictive lung disease Dysphagia, pharyngeal phase Obesity (BMI 30-39.9) Urinary incontinence (2004) Foot pain, left (2009) Ankle pain, left (2009) Lumbar spinal stenosis Cataract (03/2014) Hyperlipidemia Hypothyroidism 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) Essential tremor (05/19/15) Urge incontinence of urine (05/14/15) Chronic lumbar radiculopathy (08/26/14) Chronic left shoulder pain (12/25/17) Relationship problem with family member Internal hemorrhoids (~08/2020) Feared complaint without diagnosis Allergy to sulfa drugs Tinnitus (~2014) Chicken pox Mumps (1966) Surgical History History of esophagogastroduodenoscopy (EGD) (~03/2016) Anesthesia H/O abdominal surgery (03/2007) History of vaginal surgery (~2008) History of partial knee replacement (2007) History of partial knee replacement (2003) History of hip replacement (2001) History of hip replacement (1996) Status post hysterectomy with oophorectomy (1969) Family History Father Heart disease Pulmonary embolism Grandmother Heart disease Heart attack Sister Cancer Melanoma Grandmother No problems noted. Mother Dementia Grandfather Pneumonia Grandfather Dementia Daughter Depression Social History (Reviewed 07/13/24 @ 02:04 by EVETTE Luu marital status: details: 07/22/2007 number of children: 1 household members: none lives independently: Yes housing: condominium pets and animals: No occupational status: previously employed Smoking Status: Never smoker alcohol intake: current substance use type: does not use Smoking Status: Never smoker alcohol intake frequency: other Substance Use Type: does not use Exam Initial Vital Signs Initial Vital Signs: Vital Signs Temperature 99.1 F 07/12/24 20:48 Pulse Rate 107 H 07/12/24 20:48 Respiratory Rate 30 H 07/12/24 20:48 Blood Pressure 148/78 H 07/12/24 20:48 Pulse Oximetry 93 07/12/24 20:48 Oxygen Delivery Method Room Air 07/12/24 20:48 Const General: cooperative and No ill appearing HENMT Head: normal to inspection and normocephalic Resp Effort & Inspection: cough, labored, no retractions and tachypneic Auscultation: diminished lung sounds, no rhonchi and wheezes Cardio Rate: tachycardic Rhythm: regular rhythm Skin General: no rashes or lesions noted Extrem General: No edema Scores GCS [place] coma scale eye opening: Spontaneous [place] coma scale verbal response: Orientated [place] coma scale motor response: Obey commands Alexa coma scale total score: 15 Course Orders Ordered: ED Orders 07/12/24 21:03 XR chest 1V Stat EKG-12 Lead Stat RT Consult Eval and Treat Now 07/12/24 21:08 Complete Blood Count AUTO DIFF Stat Comprehensive Metabolic Panel Stat Lactate (Lactic Acid) Stat Lipase Stat Magnesium Stat NT-proBNP (BNP-Adult 18+) Stat Procalcitonin Stat Troponin & CK Cardiac Panel Stat 07/12/24 21:10 Respiratory Panel (Film Array) Stat 07/12/24 23:02 Blood Culture Stat Acetaminophen (Acetaminophen 325 Mg Tablet) 650 mg PO Q6H PRN PRN Reason: Fever/Mild Pain (1-3) Albuterol (Albuterol 2.5 Mg/3 Ml Neb (Adult)) 2.5 mg INH [id number] PRN PRN Reason: Shortness Of Breath Or Wheezing Albuterol/Ipratropium (Albuterol/Ipratropium 3 Ml Ampul) 3 ml INH [id number] [place] Azithromycin (Azithromycin 250 Mg Tablet) 500 mg PO DAILY [place] Calcium Carbonate (Calcium Carbonate 500 Mg Tab) 1,000 mg PO Q4HR PRN PRN Reason: Dyspepsia Docusate Sodium (Docusate 100 Mg Capsule) 100 mg PO BID [place] Hydralazine HCl (Hydralazine 20 Mg/Ml Vial) 10 mg IV Q6HR PRN PRN Reason: SBP>= 160 or DBP >=110 Lorazepam (Lorazepam 0.5 Mg Tablet) 0.5 mg PO Q6HR PRN PRN Reason: Anxiety Methylprednisolone (Methylprednisolone 125 Mg/2 Ml Vial) 60 mg IV Q12H [place] Naloxone HCl (Naloxone 0.4 Mg/Ml Vial) 0.2 mg IV Q2MIN PRN PRN Reason: Opiate Reversal (Vitamin E 200 Unit (Capsule)) 45 mg PO DAILY [facility] Ondansetron HCl (Ondansetron 4 Mg/2 Ml Inj) 4 mg IV Q8HR PRN PRN Reason: Nausea And Vomiting Oxybutynin Chloride (Oxybutynin 5 Mg Er Tab) 10 mg PO DAILY [facility] Pantoprazole Sodium (Pantoprazole Dr 20 Mg Tablet) 20 mg PO DAILY [facility] Pregabalin (Pregabalin 75 Mg Capsule) 75 mg PO BID [facility] Quetiapine Fumarate (Quetiapine 25 Mg Tablet) 25 mg PO BEDTIME PRN PRN Reason: sleep Sertraline HCl (Sertraline 50 Mg Tablet) 150 mg PO DAILY [facility] Trazodone HCl (Trazodone 50 Mg Tablet) 25 mg PO BEDTIME PRN PRN Reason: sleep Vitamin D (Cholecalciferol (Vitamin D3) 1,000 Unit Tablet) 2,000 unit PO BID [place] Discontinued Medications Albuterol/Ipratropium (Albuterol/Ipratropium 3 Ml Ampul) 3 ml INH NOW ONE Stop: 07/12/24 21:03 Last Admin: 07/12/24 21:05 Dose: 3 ml Documented By: TONJA Albuterol/Ipratropium (Albuterol/Ipratropium 3 Ml Ampul) 3 ml INH NOW ONE Stop: 07/12/24 21:25 Last Admin: 07/12/24 22:45 Dose: 3 ml Documented By: TONJA Levofloxacin (Levaquin) 750 mg in 150 mls @ 100 mls/hr IV NOW ONE Stop: 07/13/24 01:14 Last Infusion: 07/13/24 00:28 Dose: 0 mls/hr Documented By: Admin: 07/12/24 23:48 Dose: 100 mls/hr Documented By: YULISA Methylprednisolone (Methylprednisolone 125 Mg/2 Ml Vial) 125 mg IV NOW ONE Stop: 07/12/24 21:03 Last Admin: 07/12/24 21:09 Dose: 125 mg Documented By: Vital Signs Vital signs: Vital Signs - 8 hr 07/12/24 20:48 07/12/24 20:59 07/12/24 21:00 Temperature 99.1 F Pulse Rate 107 H 108 H Respiratory Rate 30 H 51 H Blood Pressure 148/78 H 181/84 H Pulse Oximetry 93 90 L Oxygen Delivery Method Room Air 07/12/24 21:07 07/12/24 21:07 07/12/24 21:30 Temperature Pulse Rate 106 H 107 H Respiratory Rate 36 H 40 H Blood Pressure 129/65 Pulse Oximetry 92 91 Oxygen Delivery Method 07/12/24 21:30 07/12/24 22:01 07/12/24 22:01 Temperature Pulse Rate 103 H Respiratory Rate 33 H Blood Pressure 119/57 L 96/53 L Pulse Oximetry 91 Oxygen Delivery Method 07/12/24 22:30 07/12/24 22:30 07/12/24 23:00 Temperature Pulse Rate 101 H Respiratory Rate 20 Blood Pressure 104/57 L 111/58 L Pulse Oximetry 92 Oxygen Delivery Method 07/12/24 23:00 07/12/24 23:26 07/12/24 23:26 Temperature Pulse Rate 104 H 122 H 110 H Respiratory Rate 22 38 H 41 H Blood Pressure Pulse Oximetry 91 88 L 92 Oxygen Delivery Method 07/12/24 23:26 07/12/24 23:30 07/12/24 23:30 Temperature Pulse Rate 109 H Respiratory Rate 41 H Blood Pressure 113/69 110/59 L Pulse Oximetry 91 Oxygen Delivery Method Medical Decision Making Medical Records Medical records reviewed: Yes I reviewed the patient's medical records. Lab Data Lab results reviewed: Yes I reviewed the patient's lab results. 07/12/24 21:08 07/12/24 21:08 Labs: Lab Results 07/12/24 07/12/24 Range/Units 21:08 21:10 WBC 12.4 H (4.5-11.0) X10^3/uL RBC 4.77 (4.0-5.2) X10^6/uL Hgb 14.1 (12.0-16.0) g/dL Hct 41.6 (36-46) % MCV 87.3 (80-100) fL MCH 29.6 (26-34) PG MCHC 33.9 (30-36) % RDW 13.1 (11.6-14.8) % Plt Count 278 (150-400) X10^3/uL Neut % (Auto) 82.8 H (50-75) % Lymph % (Auto) 8.3 L (25-40) % [place] % (Auto) 6.1 (3-14) % Eos % (Auto) 2.3 (2-4) % Baso % (Auto) 0.5 (0-2) % Neut # (Auto) 43383 H (0327-4015) /uL Lymph # (Auto) 1000 L (1698-7125) /uL [place] # (Auto) 800 (0-900) /uL Eos # (Auto) 300 (0-450) /uL Baso # (Auto) 100 (0-100) /uL Sodium 132 L (137-145) mmol/L Potassium 4.0 (3.4-5.1) mmol/L Chloride 96 L (98-107) mmol/L Carbon Dioxide 24 (22-32) mmol/L BUN 18 H (7-17) mg/dL Creatinine 0.71 (0.52-1.04) mg/dL Estimated GFR > 60 (>60) mL/min BUN/Creatinine Ratio 25.4 H (6-22) Glucose 137 H (80-110) mg/dL Lactate 2.0 (0.7-2.1) mmol/L Calcium 10.1 (8.4-10.2) mg/dL Magnesium 2.3 (1.6-2.3) mg/dL Total Bilirubin 0.5 (0.2-1.3) mg/dL AST 29 (14-36) IU/L ALT 28 (<35) IU/L Alkaline Phosphatase 76 (38-126) U/L Total Creatine Kinase 81 (30-135) U/L Troponin I < 0.012 (0.01-0.034) ng/mL NT-Pro-B Natriuret Pep 51 (<450) pg/mL Total Protein 7.7 (6.3-8.2) g/dL Albumin 4.6 (3.5-5.0) g/dL Globulin 3.1 (1.7-4.1) g/dL Albumin/Globulin Ratio 1.5 (1.0-2.8) Lipase 81 (23-300) U/L Procalcitonin 0.055 (<0.5) ng/mL Chlamy pneumoniae PCR Not detected (Not Detect) Adenovirus (PCR) Not detected (Not Detect) B.parapertussis DNA PCR Not detected (Not Detecte) Coronavirus OC43 (PCR) Not detected (Not Detect) Coronavirus HKU1 (PCR) Not detected (Not Detect) Coronavirus 229E (PCR) Not detected (Not Detect) SARS-CoV-2 (PCR) Not detected (Not Detecte) Coronavirus NL63 (PCR) Not detected (Not Detect) Human Metapneumovir PCR Not detected (Not Detect) Influenza Type A (PCR) Not detected (Not Detect) Influenza Type B (PCR) Not detected (Not Detect) M. pneumoniae (PCR) Not detected (Not Detect) Parainfluenza 1 (PCR) Not detected (Not Detect) Parainfluenza 2 (PCR) Not detected (Not Detect) Parainfluenza 3 (PCR) Not detected (Not Detect) Parainfluenza 4 (PCR) Not detected (Not Detect) RSV (PCR) Not detected (Not Detect) Entero/Rhino (PCR) Not detected (Not Detect) Imaging Data Chest x-ray: Radiologist's Impression: PROCEDURE: XR CHEST 1V INDICATIONS: Shortness of breath TECHNIQUE: One view of the chest was acquired. COMPARISON: [facility], , XR CHEST 1V, 06/25/2024, 11:08. FINDINGS: Surgical changes and devices: None. Lungs and pleura: An incomplete inspiratory result is noted, causing a crowded appearance to the lung markings. No focal infiltrates are seen. No pneumothorax or significant pleural effusions are seen. Mediastinum: The cardiac contours are within normal limits. The aorta demonstrates calcification and tortuosity. Bones and chest wall: Age-appropriate bony degenerative changes are seen. No suspicious bony lesions. Overlying soft tissues appear unremarkable. IMPRESSION: Portable chest within normal limits for age. ECG Data Attestation: I personally reviewed and interpreted this ECG as follows: Interpretation: Sinus tachycardia Ventricular rate of 108 Normal axis Normal QRS No ST T wave changes MDM Narrative Medical decision making narrative: Despite the lack of a a reported diagnosis of COPD she presents today very similar to a COPD exacerbation. This does appear to be the same as what it was like when she was here several days ago. She received a DuoNeb which she states did help her symptoms although her oxygen saturations were still in the low 90s. She became less tachypneic. She was given another nebulizer once again she stated that she was improving. She denies chest pain. No fevers. Has a nonproductive cough. Chest x-ray shows no signs of pneumonia. We ambulated the patient. In just a few steps with a walker she became very tachypneic and her oxygen saturations dropped in the mid upper 80s. This recovered quickly when she sat down in bed. Patient was given antibiotics and steroids for COPD exacerbation. Discussed the case with Dr. Feliz hospitalist on-call who will admit for further evaluation and treatment. Discussed the need for admission with the patient. She expressed understanding and agreement as well. Discharge Plan Departure Patient Disposition: Admitted As Inpatient Clinical Impression: COPD (chronic obstructive pulmonary disease), Hypoxia Admit Date/Time: 07/12/24 23:53 Admit Provider: Fer Feliz
[2024-07-12] MEDS: ALBUTEROL/IPRATROPIUM 3 ML AMPUL INH ×2 (21:05→22:45)
[2024-07-12] MEDS: methylPREDNISolone 125 MG/2 ML VIAL IV (21:09)
[2024-07-12 21:16] LABS: Add Manual Diff / Slide Review NO; Basophils Absolute Auto 100 /uL (0-100); Basophils Percent Auto 0.5 % (0-2); Eosinophils Absolute Auto 300 /uL (0-450); Eosinophils Percent Auto 2.3 % (2-4); Hematocrit 41.6 % (36-46); Hemoglobin 14.1 g/dL (12.0-16.0); Lymphocytes Absolute Auto 1000 /uL (1100-4500); Lymphocytes Percent Auto 8.3 % (25-40); Mean Corpuscular HGB Conc 33.9 % (30-36); Mean Corpuscular Hemoglobin 29.6 PG (26-34); Mean Corpuscular Volume 87.3 fL (80-100); Monocytes Absolute Auto 800 /uL (0-900); Monocytes Percent Auto 6.1 % (3-14); Neutrophils Absolute Auto 10200 /uL (1500-7000); Neutrophils Percent Auto 82.8 % (50-75); Platelet Count 278 X10^3/uL (150-400); Red Blood Cell Count 4.77 X10^6/uL (4.0-5.2); Red Cell Distribution Width 13.1 % (11.6-14.8); White Blood Cell Count 12.4 X10^3/uL (4.5-11.0)
[2024-07-12 21:30] LABS: Creatine Kinase 81 U/L (30-135); HEMOLYSIS 17 (0-50); Sodium 132 mmol/L (137-145)
[2024-07-12 21:31] LABS: Alanine Aminotransferase 28 IU/L (<35); Albumin 4.6 g/dL (3.5-5.0); Albumin Globulin Ratio 1.5 (1.0-2.8); Alkaline Phosphatase 76 U/L (38-126); Aspartate Aminotransferase 29 IU/L (14-36); BUN Creatinine Ratio 25.4 (6-22); Bilirubin Total 0.5 mg/dL (0.2-1.3); Blood Urea Nitrogen 18 mg/dL (7-17); Calcium 10.1 mg/dL (8.4-10.2); Carbon Dioxide 24 mmol/L (22-32); Chloride 96 mmol/L (98-107); Estimated Glomerular Filt Rate > 60 mL/min (>60); Globulin 3.1 g/dL (1.7-4.1); Glucose 137 mg/dL (80-110); Lipase 81 U/L (23-300); Magnesium 2.3 mg/dL (1.6-2.3); Total Protein 7.7 g/dL (6.3-8.2)
[2024-07-12 21:42] LABS: NT-proBNP (BNP-Adult 18+) 51 pg/mL (<450); Troponin I < 0.012 ng/mL (0.01-0.034)
[2024-07-12 21:47] LABS: Procalcitonin 0.055 ng/mL (<0.5)
[2024-07-12 22:06] LABS: Adenovirus Not Detected (Not Detect); B. parapertussis Not Detected (Not Detecte); Bordetella pertussis Not Detected (Not Detect); Chlamydophila pneumoniae Not Detected (Not Detect); Coronavirus 229E Not Detected (Not Detect); Coronavirus HKU1 Not Detected (Not Detect); Coronavirus NL 63 Not Detected (Not Detect); Coronavirus OC43 Not Detected (Not Detect); Human Metapneumovirus Not Detected (Not Detect); Human Rhinovirus/Enterovirus Not Detected (Not Detect); Influenza A Not Detected (Not Detect); Influenza B Not Detected (Not Detect); Mycoplasma pneumoniae Not Detected (Not Detect); Parainfluenza Virus 1 Not Detected (Not Detect); Parainfluenza Virus 2 Not Detected (Not Detect); Parainfluenza Virus 3 Not Detected (Not Detect); Parainfluenza Virus 4 Not Detected (Not Detect); Respiratory Syncytial Virus Not Detected (Not Detect); SARS- CoV-2 Not Detected (Not Detecte)
--- NOTE | 2024-07-12 23:26 | PC.NURSE ---
RECRUITING ASSISTANT note: Got patient to ambulate. Patient was very weak on her feet. She needed me to hold her up.
--- NOTE | 2024-07-12 23:31 | EKG_ITS ---
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
[2024-07-12] MEDS: levoFLOXacin 750 MG/150 ML PIGGYBACK 100 MG IV (23:48)
[2024-07-13] VITALS (10 sets, daily range): BP systolic 103–150; BP diastolic 59–81; PULSE 82–112; RESP 19–24; TEMP 36.4–38.2; O2SAT 91–97; BMI 35.0
--- NOTE | 2024-07-13 02:17 | PC.ADMIT ---
[id number] Admission Note: The patient,Petty Christy,88 y/o, was given written information regarding hospital policies, unit procedures and contact persons. Patient's smoking status: Never smoker. Vital Signs - 8 hr 07/12/24 20:48 07/12/24 20:59 07/12/24 21:00 Temperature 99.1 F Pulse Rate 107 H 108 H Respiratory Rate 30 H 51 H Blood Pressure 148/78 H 181/84 H Pulse Oximetry 93 90 L Oxygen Delivery Method Room Air Oxygen Flow Rate 07/12/24 21:07 07/12/24 21:07 07/12/24 21:30 Temperature Pulse Rate 106 H 107 H Respiratory Rate 36 H 40 H Blood Pressure 129/65 Pulse Oximetry 92 91 Oxygen Delivery Method Oxygen Flow Rate 07/12/24 21:30 07/12/24 22:01 07/12/24 22:01 Temperature Pulse Rate 103 H Respiratory Rate 33 H Blood Pressure 119/57 L 96/53 L Pulse Oximetry 91 Oxygen Delivery Method Oxygen Flow Rate 07/12/24 22:30 07/12/24 22:30 07/12/24 23:00 Temperature Pulse Rate 101 H Respiratory Rate 20 Blood Pressure 104/57 L 111/58 L Pulse Oximetry 92 Oxygen Delivery Method Oxygen Flow Rate 07/12/24 23:00 07/12/24 23:26 07/12/24 23:26 Temperature Pulse Rate 104 H 122 H 110 H Respiratory Rate 22 38 H 41 H Blood Pressure Pulse Oximetry 91 88 L 92 Oxygen Delivery Method Oxygen Flow Rate 07/12/24 23:26 07/12/24 23:30 07/12/24 23:30 Temperature Pulse Rate 109 H Respiratory Rate 41 H Blood Pressure 113/69 110/59 L Pulse Oximetry 91 Oxygen Delivery Method Oxygen Flow Rate 07/13/24 00:00 07/13/24 00:00 07/13/24 00:22 Temperature 100.7 F H Pulse Rate 112 H 108 H Respiratory Rate 22 Blood Pressure 123/60 112/67 Pulse Oximetry 91 91 92 Oxygen Delivery Method Room Air Oxygen Flow Rate 0 07/13/24 00:45 Temperature Pulse Rate Respiratory Rate Blood Pressure Pulse Oximetry Oxygen Delivery Method Room Air Oxygen Flow Rate Pt up from ED via stretcher. Was able to get up and ambulate a short distance to the BSC and then to the bed. Gait steady but pt did get sob. Pt has been A&O, calm and cooperative.
[2024-07-13] MEDS: PANTOPRAZOLE DR 20 MG TABLET PO ×2 (02:32→08:47)
[2024-07-13] MEDS: LORazepam 0.5 MG TABLET PO (02:32)
--- NOTE | 2024-07-13 03:29 | P.HP_ITS ---
History of Present Illness History of Present Illness Chief complaint: SoB, Coughing, CoPD Narrative: 88 years old female with hyperlipidemia, overactive bladder, restrictive lung disease, dysphagia, hypothyroidism, depression and anxiety presented to the ER with shortness of breath and dry cough going on for more than a month. The patient was seen recently by hair sample matcher and had breathing test done with pending results. She described shortness of breath on exertion but denies any fever, chest pain, palpitations, PND, orthopnea or swelling of the legs. Denies any smoking history but with 17 pack/year smoking history. Denies any occupational hazards. Denies any pets at home. In the ER her labs were showing WBC 12.4, sodium 132, creatinine 0.71, glucose 137, troponin negative, BNP 51, lipase 81, procalcitonin 0.05, respiratory viral panel negative. Chest x-ray unremarkable. EKG unremarkable. In the ER the patient was noted to be hypoxic on ambulation and was decided to be admitted for further management. 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) Essential tremor (05/19/15) Urge incontinence of urine (05/14/15) Chronic lumbar radiculopathy (08/26/14) Chronic left shoulder pain (12/25/17) Relationship problem with family member Internal hemorrhoids (~08/2020) Feared complaint without diagnosis Allergy to sulfa drugs Tinnitus (~2014) Chicken pox Mumps (1966) Surgical History History of esophagogastroduodenoscopy (EGD) (~03/2016) Anesthesia H/O abdominal surgery (03/2007) History of vaginal surgery (~2008) History of partial knee replacement (2007) History of partial knee replacement (2003) History of hip replacement (2001) History of hip replacement (1996) Status post hysterectomy with oophorectomy (1969) Family History Father Heart disease Pulmonary embolism Grandmother Heart disease Heart attack Sister Cancer Melanoma Grandmother No problems noted. Mother Dementia Grandfather Pneumonia Grandfather Dementia Daughter Depression Social History marital status: details: 07/22/2007 number of children: 1 household members: none lives independently: Yes housing: condominium pets and animals: No occupational status: previously employed Smoking Status: Never smoker alcohol intake: current substance use type: does not use Meds Home Medications and Allergies Home Medications Medication Instructions Recorded Confirmed Type vitamins A,C,H-tovg-rfuscm 2,148 2 tab PO BID 08/26/20 07/13/24 History mcg-113 mg-45 mg-17.4 mg tablet ([employer]er[employer]ision AREDS) Disabled Parking Permit #1 ea 02/21/22 05/06/24 Rx simvastatin 40 mg tablet 40 mg PO BEDTIME #90 tabs 09/19/23 07/13/24 Rx sertraline 100 mg tablet 150 mg (1.5 x 100 mg) PO DAILY 11/03/23 07/13/24 Rx #135 tabs multivitamin with minerals 1 tab PO DAILY 02/13/24 07/13/24 History (Hair,Skin and Nails tablet) nystatin-triamcinolone 100,000 1 applic topical DAILY PRN yeast 02/13/24 07/13/24 History unit/gram-0.1 % topical ointment tolterodine 4 mg capsule,extended See Rx Instructions .Route 05/06/24 07/13/24 Rx release 24 hr .COMPLEX #90 caps albuterol sulfate 90 mcg/actuation 2 puff inhalation Q6H PRN 05/24/24 07/13/24 Rx aerosol inhaler bronchospasm #18 grams lorazepam 1 mg tablet 1 - 2 mg PO BID PRN anxiety or 07/13/24 07/13/24 History sleep olanzapine 5 mg tablet 5 mg PO DAILY 07/13/24 07/13/24 History Allergies Allergy/AdvReac Type Severity Reaction Status Date / Time digoxin [DIGOXIN] Allergy Mild LIGHTHEADED Verified 05/06/24 11:22 latex [LATEX] Allergy Mild Verified 05/06/24 11:22 silver Allergy Mild BLISTERS Verified 05/06/24 11:22 (FROM TEGADERM MESH) sulfamethoxazole Allergy Mild Rash Verified 05/06/24 11:22 [From Bactrim] trimethoprim [From Bactrim] Allergy Mild Rash Verified 05/06/24 11:22 cephalexin AdvReac Nausea Verified 05/06/24 11:22 fluconazole AdvReac Nausea Verified 05/06/24 11:22 Review of Systems Review of Systems ROS: Yes All systems reviewed with the patient and are negative except as otherwise documented Constitutional Constitutional: Reports as per HPI and Reports system reviewed and no additional complaints, except as documented Eyes Eyes: Reports as per HPI and Reports system reviewed and no additional complaints, except as documented ENT Ears, Nose, Mouth, and Throat: Yes as per HPI and Yes system reviewed and no additional complaints, except as documented Cardiovascular Cardiovascular: Reports system reviewed and no additional complaints, except as documented Respiratory Respiratory: Reports system reviewed and no additional complaints, except as documented Gastrointestinal Gastrointestinal: Reports system reviewed and no additional complaints, except as documented Genitourinary Genitourinary: Reports system reviewed and no additional complaints, except as documented Musculoskeletal Musculoskeletal: Reports system reviewed and no additional complaints, except as documented, Reports abnormal gait and Reports numbness Neurologic Neurologic: Reports system reviewed and no additional complaints, except as documented, Reports abnormal gait, Reports confusion and Reports numbness Psychiatric Psychiatric: Reports system reviewed and no additional complaints, except as documented and Reports confusion Exam Vital Signs (past 8 hours): - 07/12/24 20:48 07/12/24 20:59 07/12/24 21:00 Temperature 99.1 F Pulse Rate 107 H 108 H Respiratory Rate 30 H 51 H Blood Pressure 148/78 H 181/84 H Pulse Oximetry 93 90 L Oxygen Delivery Method Room Air Oxygen Flow Rate 07/12/24 21:07 07/12/24 21:07 07/12/24 21:30 Temperature Pulse Rate 106 H 107 H Respiratory Rate 36 H 40 H Blood Pressure 129/65 Pulse Oximetry 92 91 Oxygen Delivery Method Oxygen Flow Rate 07/12/24 21:30 07/12/24 22:01 07/12/24 22:01 Temperature Pulse Rate 103 H Respiratory Rate 33 H Blood Pressure 119/57 L 96/53 L Pulse Oximetry 91 Oxygen Delivery Method Oxygen Flow Rate 07/12/24 22:30 07/12/24 22:30 07/12/24 23:00 Temperature Pulse Rate 101 H Respiratory Rate 20 Blood Pressure 104/57 L 111/58 L Pulse Oximetry 92 Oxygen Delivery Method Oxygen Flow Rate 07/12/24 23:00 07/12/24 23:26 07/12/24 23:26 Temperature Pulse Rate 104 H 122 H 110 H Respiratory Rate 22 38 H 41 H Blood Pressure Pulse Oximetry 91 88 L 92 Oxygen Delivery Method Oxygen Flow Rate 07/12/24 23:26 07/12/24 23:30 07/12/24 23:30 Temperature Pulse Rate 109 H Respiratory Rate 41 H Blood Pressure 113/69 110/59 L Pulse Oximetry 91 Oxygen Delivery Method Oxygen Flow Rate 07/13/24 00:00 07/13/24 00:00 07/13/24 00:22 Temperature 100.7 F H Pulse Rate 112 H 108 H Respiratory Rate 22 Blood Pressure 123/60 112/67 Pulse Oximetry 91 91 92 Oxygen Delivery Method Room Air Oxygen Flow Rate 0 07/13/24 00:45 07/13/24 02:21 Temperature Pulse Rate Respiratory Rate Blood Pressure Pulse Oximetry 93 Oxygen Delivery Method Room Air Oxygen Flow Rate 2 Oxygen Delivery Method Room Air Oxygen Flow Rate 2 Const General: cooperative, comfortable and well developed Orientation: alert and oriented x3 HENMT Head: normal to inspection, normocephalic and atraumatic Face and sinus: normal facial exam Mouth: oral mucosae normal and moist mucous membranes Throat: posterior oropharynx normal Eyes General: appearance normal, both eyes and all related structures Pupils: PERRL EOM: EOM intact bilaterally Neck Neck: normal visual inspection and full ROM Chest Chest: normal inspection of the chest Resp Effort & Inspection: normal respiratory effort and able to speak in complete sentences Auscultation: clear to auscultation bilaterally Cardio Palpation: normal PMI Rate: regular rate Rhythm: regular rhythm Heart Sounds: S1 normal and S2 normal GI Inspection: normal to inspection Palpation: soft and no hepatosplenomegaly Auscultation: normal bowel sounds Skin General: no rashes or lesions noted Lesions: no lesions Rashes: no rashes Trauma: no lacerations or abrasions Neuro General: patient alert, patient awake, patient oriented x3 and no focal motor deficits Cranial Nerves: CN's II-XI intact bilaterally Cognition: normal cognition Speech: speech normal Gait: normal gait Motor: muscle tone normal throughout Sensory Exam: no sensory deficits noted Extrem General: full ROM and no calf tenderness Psych Appearance: grossly normal Mental Status: mental status grossly normal Speech and Movement: speech and movement normal Objective Labs 07/12/24 21:08 07/12/24 21:08 Labs: Laboratory Results - last 24 hr 07/12/24 07/12/24 21:08 21:10 WBC 12.4 H RBC 4.77 Hgb 14.1 Hct 41.6 MCV 87.3 MCH 29.6 MCHC 33.9 RDW 13.1 Plt Count 278 Neut % (Auto) 82.8 H Lymph % (Auto) 8.3 L [place] % (Auto) 6.1 Eos % (Auto) 2.3 Baso % (Auto) 0.5 Neut # (Auto) 41922 H Lymph # (Auto) 1000 L [place] # (Auto) 800 Eos # (Auto) 300 Baso # (Auto) 100 Sodium 132 L Potassium 4.0 Chloride 96 L Carbon Dioxide 24 BUN 18 H Creatinine 0.71 Estimated GFR > 60 BUN/Creatinine Ratio 25.4 H Glucose 137 H Lactate 2.0 Calcium 10.1 Magnesium 2.3 Total Bilirubin 0.5 AST 29 ALT 28 Alkaline Phosphatase 76 Total Creatine Kinase 81 Troponin I < 0.012 NT-Pro-B Natriuret Pep 51 Total Protein 7.7 Albumin 4.6 Globulin 3.1 Albumin/Globulin Ratio 1.5 Lipase 81 Procalcitonin 0.055 Chlamy pneumoniae PCR Not detected Adenovirus (PCR) Not detected B.parapertussis DNA PCR Not detected Coronavirus OC43 (PCR) Not detected Coronavirus HKU1 (PCR) Not detected Coronavirus 229E (PCR) Not detected SARS-CoV-2 (PCR) Not detected Coronavirus NL63 (PCR) Not detected Human Metapneumovir PCR Not detected Influenza Type A (PCR) Not detected Influenza Type B (PCR) Not detected M. pneumoniae (PCR) Not detected Parainfluenza 1 (PCR) Not detected Parainfluenza 2 (PCR) Not detected Parainfluenza 3 (PCR) Not detected Parainfluenza 4 (PCR) Not detected RSV (PCR) Not detected Entero/Rhino (PCR) Not detected Assessment & Plan Assessment & Plan narrative: Acute respiratory failure with hypoxia COPD exacerbation. Unclear etiology. Suspect COPD exacerbation versus interstitial lung disease versus Asthma exacerbation. Pulmonary function test pending. -Oxygen titration goal of 88-92%, avoid excess oxygen to prevent carbondioxide retention, Monitor mental status. -Albuterol 2.5 mg nebulizer Q Hour for the next 4 to 6 hours -DuoNeb every 6 hours as needed -Continue patient on 60 mg Solu-Medrol every 12 hours for severe exacerbation, reassess and taper or prednisone 60 mg daily. Prednisone 40 mg po daily x 5 days starting on day 2 of admission; -Azithromycin -Monitor patient on telemetry. Hyperlipidemia. Restart simvastatin. Depression/anxiety. Restart sertraline as needed. Overactive bladder. Restart tolterodine. Time-Based Coding :: [TOTAL MINUTES] spent with patient and on the chart (including review of chart, obtaining history, exam, reviewing outside data, placing orders, documenting exam and treatment plan, and counseling patient) on [DATE]. Quality VTE Deep Vein Thrombosis/Pulmonary Embolism Present on Admission: No MIPS - Admit I confirm the patient?s Advance Care Plan is present, Code status is documented, Surrogate decision maker is in patient?s record [If Yes, STOP here]: Yes MIPS - Meds 'Current medications' to include all prescriptions, [id number] products, herbals, cannabis/cannabidiol products, and vitamin/mineral/dietary (nutritional) supplements. I have utilized all available resources to obtain, update, or review the patient?s current medications. [If Yes, STOP here]: Yes
[2024-07-13] MEDS: ALBUTEROL 2.5 MG/3 ML NEB (ADULT) INH (03:30)
[2024-07-13] MEDS: CODEINE/GUAIFENESIN LIQUID 5ML UDC 10 ML PO ×2 (04:54→17:08)
[2024-07-13] MEDS: ALBUTEROL/IPRATROPIUM 3 ML AMPUL INH ×3 (07:36→19:46)
--- NOTE | 2024-07-13 07:47 | PM.PN.1 ---
Subjective Subjective Interval history: She says that she is not feeling better and has not been able to sleep at all. She mentions that her smoked but that she never did. Her heart rate is 105. She remains on 1 L nasal cannula oxygen. The white blood count is 12.4 sodium of 132 and a creatinine of 0.7 along with a glucose 137. The liver enzymes are normal. Exam Vital Signs (past 8 hours): - 07/13/24 00:00 07/13/24 00:00 07/13/24 00:22 Temperature 100.7 F H Pulse Rate 112 H 108 H Respiratory Rate 22 Blood Pressure 123/60 112/67 Pulse Oximetry 91 91 92 Oxygen Delivery Method Room Air Oxygen Flow Rate 0 07/13/24 00:45 07/13/24 02:21 07/13/24 03:59 Temperature 97.5 F L Pulse Rate 105 H Respiratory Rate 20 Blood Pressure 105/60 Pulse Oximetry 93 93 Oxygen Delivery Method Room Air Oxygen Flow Rate 2 2 Oxygen Delivery Method Room Air Oxygen Flow Rate 2 Narrative Exam Narrative: She is alert and oriented x3 No apparent distress. Heart is regular rate and rhythm without murmur. Lungs are clear to auscultation bilaterally. Extremities have no ankle edema. Objective Labs 07/12/24 21:08 07/13/24 10:09 Labs: Laboratory Results - last 24 hr 07/12/24 07/12/24 21:08 21:10 WBC 12.4 H RBC 4.77 Hgb 14.1 Hct 41.6 MCV 87.3 MCH 29.6 MCHC 33.9 RDW 13.1 Plt Count 278 Neut % (Auto) 82.8 H Lymph % (Auto) 8.3 L [place] % (Auto) 6.1 Eos % (Auto) 2.3 Baso % (Auto) 0.5 Neut # (Auto) 24228 H Lymph # (Auto) 1000 L [place] # (Auto) 800 Eos # (Auto) 300 Baso # (Auto) 100 Sodium 132 L Potassium 4.0 Chloride 96 L Carbon Dioxide 24 BUN 18 H Creatinine 0.71 Estimated GFR > 60 BUN/Creatinine Ratio 25.4 H Glucose 137 H Lactate 2.0 Calcium 10.1 Magnesium 2.3 Total Bilirubin 0.5 AST 29 ALT 28 Alkaline Phosphatase 76 Total Creatine Kinase 81 Troponin I < 0.012 NT-Pro-B Natriuret Pep 51 Total Protein 7.7 Albumin 4.6 Globulin 3.1 Albumin/Globulin Ratio 1.5 Lipase 81 Procalcitonin 0.055 Chlamy pneumoniae PCR Not detected Adenovirus (PCR) Not detected B.parapertussis DNA PCR Not detected Coronavirus OC43 (PCR) Not detected Coronavirus HKU1 (PCR) Not detected Coronavirus 229E (PCR) Not detected SARS-CoV-2 (PCR) Not detected Coronavirus NL63 (PCR) Not detected Human Metapneumovir PCR Not detected Influenza Type A (PCR) Not detected Influenza Type B (PCR) Not detected M. pneumoniae (PCR) Not detected Parainfluenza 1 (PCR) Not detected Parainfluenza 2 (PCR) Not detected Parainfluenza 3 (PCR) Not detected Parainfluenza 4 (PCR) Not detected RSV (PCR) Not detected Entero/Rhino (PCR) Not detected PFSH Medical History Fall Chronic prescription benzodiazepine use Pulmonary nodule less than 6 mm in diameter with low risk for malignant neoplasm (~07/2020) Peripheral neuropathy Bronchitis Abnormal LFTs Restrictive lung disease Dysphagia, pharyngeal phase Obesity (BMI 30-39.9) Urinary incontinence (2004) Foot pain, left (2009) Ankle pain, left (2009) Lumbar spinal stenosis Cataract (03/2014) Hyperlipidemia Hypothyroidism 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) Essential tremor (05/19/15) Urge incontinence of urine (05/14/15) Chronic lumbar radiculopathy (08/26/14) Chronic left shoulder pain (12/25/17) Relationship problem with family member Internal hemorrhoids (~08/2020) Feared complaint without diagnosis Allergy to sulfa drugs Tinnitus (~2014) Chicken pox Mumps (1966) Surgical History History of esophagogastroduodenoscopy (EGD) (~03/2016) Anesthesia H/O abdominal surgery (03/2007) History of vaginal surgery (~2008) History of partial knee replacement (2007) History of partial knee replacement (2003) History of hip replacement (2001) History of hip replacement (1996) Status post hysterectomy with oophorectomy (1969) Family History Father Heart disease Pulmonary embolism Grandmother Heart disease Heart attack Sister Cancer Melanoma Grandmother No problems noted. Mother Dementia Grandfather Pneumonia Grandfather Dementia Daughter Depression Social History marital status: details: 07/22/2007 number of children: 1 household members: none lives independently: Yes housing: condominium pets and animals: No occupational status: previously employed Smoking Status: Never smoker alcohol intake: current substance use type: does not use Assessment & Plan Assessment & Plan narrative: Acute respiratory failure with hypoxia COPD exacerbation. Unclear etiology. Suspect COPD exacerbation versus interstitial lung disease versus Asthma exacerbation. Pulmonary function test pending. -Oxygen titration goal of 88-92%, avoid excess oxygen to prevent carbondioxide retention, Monitor mental status. -Albuterol 2.5 mg nebulizer prn -DuoNeb every 6 hours as needed -Continue patient on 60 mg Solu-Medrol every 12 hours for severe exacerbation, reassess and taper or prednisone 60 mg daily. Prednisone 40 mg po daily x 5 days starting on day 2 of admission; -Azithromycin -Monitor patient on telemetry. Hyperlipidemia. Restart simvastatin. Depression/anxiety. Restart sertraline as needed. Overactive bladder. Restart tolterodine. Time-Based Coding :: [TOTAL MINUTES] spent with patient and on the chart (including review of chart, obtaining history, exam, reviewing outside data, placing orders, documenting exam and treatment plan, and counseling patient) on [DATE]. Quality VTE Deep Vein Thrombosis/Pulmonary Embolism Present on Admission: No
[2024-07-13] MEDS: CHOLECALCIFEROL (VITAMIN D3) 1,000 UNIT TABLET 2000 UNIT PO ×2 (08:46→20:45)
[2024-07-13] MEDS: DOCUSATE 100 MG CAPSULE PO ×2 (08:46→20:45)
[2024-07-13] MEDS: OXYBUTYNIN 5 MG ER TAB 10 MG PO (08:47)
[2024-07-13] MEDS: AZITHROMYCIN 250 MG TABLET 500 MG PO (08:47)
[2024-07-13 10:23] LABS: Alanine Aminotransferase 56 IU/L (<35); Albumin 4.3 g/dL (3.5-5.0); Albumin Globulin Ratio 1.7 (1.0-2.8); Alkaline Phosphatase 56 U/L (38-126); Aspartate Aminotransferase 28 IU/L (14-36); BUN Creatinine Ratio 28.4 (6-22); Bilirubin Total 0.5 mg/dL (0.2-1.3); Blood Urea Nitrogen 19 mg/dL (7-17); Calcium 9.8 mg/dL (8.4-10.2); Carbon Dioxide 21 mmol/L (22-32); Chloride 97 mmol/L (98-107); Estimated Glomerular Filt Rate > 60 mL/min (>60); Globulin 2.6 g/dL (1.7-4.1); Glucose 178 mg/dL (80-110); HEMOLYSIS < 15 (0-50); Magnesium 2.2 mg/dL (1.6-2.3); Potassium 3.9 mmol/L (3.4-5.1); Sodium 131 mmol/L (137-145); Total Protein 6.9 g/dL (6.3-8.2)
[2024-07-13] MEDS: methylPREDNISolone 125 MG/2 ML VIAL 60 MG IV ×2 (13:28→23:25)
--- NOTE | 2024-07-13 13:46 | CM.DANOTE ---
Discharge Planning/Care Management CM Discharge Assessment Start: 07/13/24 13:43 Freq: Status: Active Protocol: Document 07/13/24 13:43 SHERIE (Rec: 07/13/24 13:46 SHERIE [id number]) Discharge Planning Assessment Assigned Electronics Test Engineer KATT Adam DPOA/Assigned Designee Name Brooke Bains, friend Contact Information [phone] Advance Directives? Yes; POLST Advance Directives on File Yes History Provided By Patient,Medical Record Prior Living Arrangements Apartment/Condo Household Members none Type of transporation used prior to Drives own vehicle admit Independent with ADL's Yes Is patient alert and oriented? Yes Patient/Family Preference Home with Home Health Barriers to Discharge No Comment Patient plans to have her friend Andrew drive her home. Patient is indp at baseline, PT pending today. Patient would like [facility] services for RN/ wound care and PT/OT for strengthening. Patient does not anticipate further needs from this CM team. Following closely for coordination of discharge plan . F2F and HH order completed, awaiting CB from [facility] to discuss this referral. Discharge Plan Home with Home Health Transportation Arrangement Friend Referrals Initiated Home Health Additional Comment Awaiting CB from [facility].
[2024-07-13] MEDS: ENOXAPARIN 40 MG/0.4 ML SYRINGE SUBCUT (17:08)
[2024-07-13] MEDS: SERTRALINE 50 MG TABLET 150 MG PO (20:44)
[2024-07-14] VITALS (8 sets, daily range): BP systolic 108–149; BP diastolic 62–86; PULSE 79–96; RESP 16–20; TEMP 36.4–37.2; O2SAT 92–97
--- NOTE | 2024-07-14 08:01 | P.PN_ITS ---
Subjective Subjective Interval history: She says that she is still feeling constipated ?yucky. ? She would like to have a stool softener twice a day. She takes a gummy from [facility] [employer] at home. She is now on 0.5 L nasal cannula oxygen and is agreeable to going home tomorrow. Her ALT is 56 and her AST is 28. The sodium is 131. The creatinine is 0.67. She is asking for home health to provide wound care for an area on her sacrum that tends to break down. Exam Vital Signs (past 8 hours): - 07/14/24 01:06 07/14/24 04:00 Temperature 98.2 F Pulse Rate 79 84 Respiratory Rate 16 Blood Pressure 128/69 Pulse Oximetry 95 96 Oxygen Flow Rate 0.5 0.5 Oxygen Delivery Method Nasal Cannula Oxygen Flow Rate 0.5 Narrative Exam Narrative: Very hard of hearing. No apparent distress. Alert and oriented. Heart is regular rate and rhythm without murmur Lungs are clear to auscultation bilaterally Extremities have no ankle edema Objective Labs 07/12/24 21:08 07/14/24 08:40 Labs: Laboratory Results - last 24 hr 07/13/24 10:09 Sodium 131 L Potassium 3.9 Chloride 97 L Carbon Dioxide 21 L BUN 19 H Creatinine 0.67 Estimated GFR > 60 BUN/Creatinine Ratio 28.4 H Glucose 178 H Calcium 9.8 Magnesium 2.2 Total Bilirubin 0.5 AST 28 ALT 56 H Alkaline Phosphatase 56 Total Protein 6.9 Albumin 4.3 Globulin 2.6 Albumin/Globulin Ratio 1.7 [facility] Medical History Fall Chronic prescription benzodiazepine use Pulmonary nodule less than 6 mm in diameter with low risk for malignant neoplasm (~07/2020) Peripheral neuropathy Bronchitis Abnormal LFTs Restrictive lung disease Dysphagia, pharyngeal phase Obesity (BMI 30-39.9) Urinary incontinence (2004) Foot pain, left (2009) Ankle pain, left (2009) Lumbar spinal stenosis Cataract (03/2014) Hyperlipidemia Hypothyroidism 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) Essential tremor (05/19/15) Urge incontinence of urine (05/14/15) Chronic lumbar radiculopathy (08/26/14) Chronic left shoulder pain (12/25/17) Relationship problem with family member Internal hemorrhoids (~08/2020) Feared complaint without diagnosis Allergy to sulfa drugs Tinnitus (~2014) Chicken pox Mumps (1967) Surgical History History of esophagogastroduodenoscopy (EGD) (~03/2016) Anesthesia H/O abdominal surgery (03/2007) History of vaginal surgery (~2008) History of partial knee replacement (2007) History of partial knee replacement (2003) History of hip replacement (2001) History of hip replacement (1996) Status post hysterectomy with oophorectomy (1969) Family History Father Heart disease Pulmonary embolism Grandmother Heart disease Heart attack Sister Cancer Melanoma Grandmother No problems noted. Mother Dementia Grandfather Pneumonia Grandfather Dementia Daughter Depression Social History marital status: details: 07/22/2007 number of children: 1 household members: none lives independently: [facility] pets and animals: No occupational status: previously employed Smoking Status: Never smoker alcohol intake: current substance use type: does not use Assessment & Plan Assessment & Plan narrative: Acute respiratory failure with hypoxia COPD exacerbation. Unclear etiology. Suspect COPD exacerbation versus interstitial lung disease versus Asthma exacerbation. Pulmonary function test pending. -Oxygen titration goal of 88-92%, avoid excess oxygen to prevent carbondioxide retention, Monitor mental status. -Albuterol 2.5 mg nebulizer prn -DuoNeb every 6 hours as needed -Change on 07/14 from IV Solumedrol to Prednisone -Azithromycin -Likely to discharge home on 07/14/24 -Monitor patient on telemetry. Hyperlipidemia. Simvastatin. Depression/anxiety. Sertraline. Overactive bladder. Oxybutinin for Tolterodine. Time-Based Coding :: [TOTAL MINUTES] spent with patient and on the chart (including review of chart, obtaining history, exam, reviewing outside data, placing orders, documenting exam and treatment plan, and counseling patient) on [DATE]. Quality VTE Deep Vein Thrombosis/Pulmonary Embolism Present on Admission: No
[2024-07-14] MEDS: CHOLECALCIFEROL (VITAMIN D3) 1,000 UNIT TABLET 2000 UNIT PO ×2 (08:17→22:17)
[2024-07-14] MEDS: OXYBUTYNIN 5 MG ER TAB 10 MG PO (08:17)
[2024-07-14] MEDS: PANTOPRAZOLE DR 20 MG TABLET PO (08:17)
[2024-07-14] MEDS: ENOXAPARIN 40 MG/0.4 ML SYRINGE SUBCUT (08:17)
[2024-07-14] MEDS: DOCUSATE 100 MG CAPSULE PO ×3 (08:17→22:18)
[2024-07-14] MEDS: AZITHROMYCIN 250 MG TABLET 500 MG PO (08:17)
[2024-07-14] MEDS: ALBUTEROL/IPRATROPIUM 3 ML AMPUL INH ×3 (08:49→19:00)
[2024-07-14 08:57] LABS: Alanine Aminotransferase 59 IU/L (<35); Albumin 4.3 g/dL (3.5-5.0); Albumin Globulin Ratio 1.3 (1.0-2.8); Alkaline Phosphatase 61 U/L (38-126); Aspartate Aminotransferase 39 IU/L (14-36); BUN Creatinine Ratio 29.4 (6-22); Bilirubin Total 0.4 mg/dL (0.2-1.3); Blood Urea Nitrogen 20 mg/dL (7-17); Calcium 9.9 mg/dL (8.4-10.2); Carbon Dioxide 28 mmol/L (22-32); Chloride 97 mmol/L (98-107); Estimated Glomerular Filt Rate > 60 mL/min (>60); Globulin 3.2 g/dL (1.7-4.1); Glucose 168 mg/dL (80-110); HEMOLYSIS < 15 (0-50); Magnesium 2.6 mg/dL (1.6-2.3); Potassium 4.8 mmol/L (3.4-5.1); Sodium 133 mmol/L (137-145); Total Protein 7.5 g/dL (6.3-8.2)
[2024-07-14] MEDS: methylPREDNISolone 125 MG/2 ML VIAL 60 MG IV (12:18)
--- NOTE | 2024-07-14 13:06 | PT.IIE ---
Current Diagnoses Chronic obstructive pulmonary disease with (acute) exacerbation (07/12/24) Surgical History (Last Reviewed 06/25/24 @ 12:28 by Pratima Sutherland DO) Anesthesia H/O abdominal surgery (03/2007) History of esophagogastroduodenoscopy (EGD) (~03/2016) History of hip replacement (1996) History of hip replacement (2001) History of partial knee replacement (2003) History of partial knee replacement (2007) History of vaginal surgery (~2008) Status post hysterectomy with oophorectomy (1969) Medical History (Last Reviewed 07/13/24 @ 02:04 by Donnie Teague DO) Abnormal LFTs Allergy to sulfa drugs Ankle pain, left (2009) Bronchitis Cataract (03/2014) Chicken pox Chronic left shoulder pain (12/25/17) Chronic lumbar radiculopathy (08/26/14) Chronic prescription benzodiazepine use Dysphagia, pharyngeal phase Essential tremor (05/19/15) Fall Feared complaint without diagnosis Foot pain, left (2009) Hyperlipidemia Hypothyroidism Internal hemorrhoids (~08/2020) Lumbar spinal stenosis Mumps (1966) Obesity (BMI 30-39.9) Peripheral neuropathy Pulmonary nodule less than 6 mm in diameter with low risk for malignant neoplasm (~07/2020) Relationship problem with family member Restrictive lung disease 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) Tinnitus (~2014) Urge incontinence of urine (05/14/15) Urinary incontinence (2004) Physical Therapy Inpatient Evaluation/Re-Eval M1 PT/OT-IP Prior Functional Status Start: 07/14/24 12:29 Freq: NEEDED Status: Active Protocol: Document 07/14/24 12:30 MB (Rec: 07/14/24 13:06 MB [id number]) Medical Review Prior Functional Status Medical History Reviewed Yes Diet/Fluid Consistency Regular Communication WNLs, NISQUALLY Mobility and Gait Mod I with RW, also has cane Activities of Daily Living and IADL's Neighbor transports pt and assists with groceries, pt takes a sponge bath d/t bathrooms are upstairs, pt has ramp to enter, a cleaning person helps with laundry and house cleaning Social History Household Members none Living Arrangements Apartment/Condo Number of Floors (Floors) Two Floors Number of Stairs To Enter/Railing? Ramp to enter and pt does not go upstairs where tub showers are but takes sponge baths Home Environment High Toilet Home Equipment Front Wheel Walker,Straight Cane,Grab Bars Near Toilet Employment Status Retired Additional Social History Comment Pt sleeps in recliner chair that lies back M2 PT-IP Current Condition Start: 07/14/24 12:29 Freq: NEEDED Status: Active Protocol: Document 07/14/24 12:30 MB (Rec: 07/14/24 13:06 MB [id number]) Physical Therapy Current Condition Current Condition Evaluation Date 07/14/24 Treatment Diagnosis Coughing and SOB, ?COPD M3 PT-IP Subjective Start: 07/14/24 12:29 Freq: NEEDED Status: Active Protocol: Document 07/14/24 12:30 MB (Rec: 07/14/24 13:06 MB [id number]) Subjective Physical Therapy Visit Type Type Initial Evaluation Visit Start Time 12:30 Visit Stop Time 12:55 Number of TOLL COLLECTOR Visits 0 Physical Therapy Visit Comments Patient Comments Pt states that she wishes to stay in her condo as long as possible. She is agreeable to PT. Therapy Pain Assessment Pain When Pain Assessed At Rest Pain Present Pain Present Denied Pain M4 PT-IP Mobility and Gait Start: 07/14/24 12:29 Freq: NEEDED Status: Active Protocol: Document 07/14/24 12:30 MB (Rec: 07/14/24 13:06 MB [id number]) PT-Bed Mobility Assessment Rolling Type of Rolling Roll to Left Level of Assist Contact Guard Assistance,1 Person Assistance Supine to Sit Supine to Sit Contact Guard Assistance Scooting Scooting to Edge of Bed Contact Guard Assistance Scooting Up and Down in Bed Contact Guard Assistance PT-Transfer Assessment Sit to and From Stand Sit to and from Stand Contact Guard Assistance,1 Person Assistance,Use of Upper Extremities Equipment Transfer Assistive Device Gait Belt,Front Wheeled Walker Orthotic/Prosthetic Devices or Brace: No Transfers Transfer Destination Chair Transfer Technique Ambulation Transfer Ability Level of Assist Contact Guard Assistance Comments Mobility Comments PT provides cues to push up from the bed and not to reach for walker Gait Assessment Gait Gait Assistance Required: Contact Guard Assist Distance (Feet) 50 Able to Maintain Weight Bearing Status Yes During Gait Assistive Devices Assistive Device Gait Belt,Front Wheeled Walker Orthotic/Prosthetic Devices or Brace: No Gait Deviations General Gait Pattern Decreased Stride Length, Decreased Feet Clearance, Flexed Trunk,Wide Based Gait Factors Limiting Gait Function Factors Limiting Gait Function Decreased Activity Tolerance, Poor Balance,Poor Safety Awareness Comments Gait Comments DUNHAM and standing rest break with RW. O2 sats remain close to 90% on RA with gait. Pt gait trains 50'x1, 40'x1 and 10'x1 with RW PT-Balance Assessment Sitting Balance and Reactions Static Sitting Balance Ability Good Dynamic Sitting Balance Ability Good Standing Balance and Reactions Static Standing Balance Ability Good Dynamic Standing Balance Ability Fair Device Used RW M5 PT-IP Objective Assessments Start: 07/14/24 12:29 Freq: NEEDED Status: Active Protocol: Document 07/14/24 12:30 MB (Rec: 07/14/24 13:06 [id number]) Orientation Orientation/Cognition Level of Alertness Alert Orientation Name,Age,Birthday,Month,Date, Year,Day of Week,Place, Situation Language Function Ability Hard of Hearing Safety Awareness Decreased Safety Awareness Memory Description No Deficits Noted Gross Range of Motion Upper Extremity ROM Impairments Defer to OT Lower Extremity ROM Assessment Within Functional Limits Impairments See comments below Strength Upper Extremity Strength Assessment Within Functional Limits Comments Strength Comments Pt does report B neuropathy in feet and has some decreased B toe off and heel strike with gait Sensation Assessment Comments Sensation Comments B feet neuropathy Muscle Tone Muscle Tone WNL Yes M6 PT-IP Treatment Start: 07/14/24 12:29 Freq: NEEDED Status: Active Protocol: Document 07/14/24 12:30 MB (Rec: 07/14/24 13:06 [id number]) Physical Therapy Treatment Education Education Provided Safety Other Treatments Other Treatment Performed Ed pt to work on breathing through nose, importance of mobility in the home and follow all med recommendations at d/c given multiple ED visits for breathing issues, benefits of HHPT, keeping cell phone or life alert near her at home M7 PT-IP Assessment and Plan Start: 07/14/24 12:29 Freq: NEEDED Status: Active Protocol: Document 07/14/24 12:30 MB (Rec: 07/14/24 13:06 [id number]) PT Summary Assessment and Plan Potential Rehabilitation Potential Fair Status of Condition at Evaluation Evolving Summary Impairments Balance,Coordination,Sensation ,Bed Mobility,Transfers,Gait, Activity Tolerance Progress Towards Goals Progressing Toward Goals Assessment Summary Pt is an 88 y/o female presenting with DUNHAM and O2 sats remain close to 90% with mobility on RA and she requires two standing rest breaks with gait. Pt lives alone in her condo, has a ramp to enter, has neighbor and house keeper assistance and takes sponge baths. Her lifestyle is rather sedentary. She will benefit from being up to chair with nsg assistance in the hospital and from HHPT consult at d/c. Goals Transfer Goal Independent,Front Wheeled Walker Gait Goal Independent,Front Wheel Walker Gait Distance 75 Other Goals Pt does not sleep in a bed at home and so no bed mobility goal. Days to Meet Goals 5 Frequency of Treatment Frequency Of Treatment Once a Day Treatment Plan Physical Therapy Treatment Plan Bed Mobility Training,Transfer Training,Gait Training, Therapeutic Exercise,Balance Retraining,Discharge Planning, Hot or Cold Pack,Neuromuscular Re-ed,Coordination Retraining ,Manual Therapy Weight Bearing Status Allowed Weight Bearing Amount (enter % No restrictions or #) (%) Recommendations To Nursing Amount of Assist Needed 1 Person Assist Discharge Recommendations PT Discharge Recommendations Home with Assistance,Home Health Transportation Needs at Discharge Private Vehicle
--- NOTE | 2024-07-14 15:48 | CM.DPNOTE ---
DCP Cont Attempted contact with [facility] today, spoke with answering service who will have refrigeration technician intake CB. Meanwhile, faxed referral with [facility] and HH order to [facility] per patient request to [phone] PT has cleared patient for return home with HH services. JW
[2024-07-14] MEDS: SERTRALINE 50 MG TABLET 150 MG PO (22:17)
[2024-07-14] MEDS: ATORVASTATIN 20 MG TABLET PO (22:18)
[2024-07-15 03:00] VITALS: BP 114/69; PULSE 73; RESP 18; TEMP 37.6; O2SAT 93
[2024-07-15 08:00] VITALS: BP 149/84; PULSE 79; RESP 20; TEMP 36.3; O2SAT 93
[2024-07-15] MEDS: ALBUTEROL/IPRATROPIUM 3 ML AMPUL INH ×2 (09:02→13:16)
[2024-07-15 09:18] LABS: Alanine Aminotransferase 32 IU/L (<35); Albumin 4.3 g/dL (3.5-5.0); Albumin Globulin Ratio 1.7 (1.0-2.8); Alkaline Phosphatase 64 U/L (38-126); Aspartate Aminotransferase 31 IU/L (14-36); Bilirubin Total 0.5 mg/dL (0.2-1.3); Blood Urea Nitrogen 17 mg/dL (7-17); Carbon Dioxide 27 mmol/L (22-32); Chloride 98 mmol/L (98-107); Estimated Glomerular Filt Rate > 60 mL/min (>60); Globulin 2.6 g/dL (1.7-4.1); Glucose 137 mg/dL (80-110); HEMOLYSIS < 15 (0-50); Magnesium 2.6 mg/dL (1.6-2.3); Potassium 3.9 mmol/L (3.4-5.1); Sodium 135 mmol/L (137-145); Total Protein 6.9 g/dL (6.3-8.2)
[2024-07-15] MEDS: predniSONE 20 MG TABLET 40 MG PO (09:34)
[2024-07-15] MEDS: PANTOPRAZOLE DR 20 MG TABLET PO (09:34)
[2024-07-15] MEDS: CHOLECALCIFEROL (VITAMIN D3) 1,000 UNIT TABLET 2000 UNIT PO (09:35)
[2024-07-15] MEDS: ENOXAPARIN 40 MG/0.4 ML SYRINGE SUBCUT (09:35)
[2024-07-15] MEDS: AZITHROMYCIN 250 MG TABLET 500 MG PO (09:35)
[2024-07-15] MEDS: DOCUSATE 100 MG CAPSULE PO (09:35)
[2024-07-15] MEDS: OXYBUTYNIN 5 MG ER TAB 10 MG PO (09:36)
[2024-07-15] MEDS: LORazepam 0.5 MG TABLET PO (09:36)
--- NOTE | 2024-07-15 10:35 | PM.DS.1 ---
History of Present Illness History of Present Illness Date Patient Seen: 07/15/24 Time Patient Seen: 10:36 Chief complaint: SoB, Coughing, CoPD Narrative: Per admitting provider, 88 years old female with hyperlipidemia, overactive bladder, restrictive lung disease, dysphagia, hypothyroidism, depression and anxiety presented to the ER with shortness of breath and dry cough going on for more than a month. The patient was seen recently by standards analyst and had breathing test done with pending results. She described shortness of breath on exertion but denies any fever, chest pain, palpitations, PND, orthopnea or swelling of the legs. Denies any smoking history but with 17 pack/year smoking history. Denies any occupational hazards. Denies any pets at home. In the ER her labs were showing WBC 12.4, sodium 132, creatinine 0.71, glucose 137, troponin negative, BNP 51, lipase 81, procalcitonin 0.05, respiratory viral panel negative. Chest x-ray unremarkable. EKG unremarkable. In the ER the patient was noted to be hypoxic on ambulation and was decided to be admitted for further management. Discharge Providers Provider Date of admission: 07/12/24 23:53 Discharge Date: 07/15/24 Primary care physician: Ariella Boo DO Consults: 07/13/24 00:00 Consult to Cardio/Pulmonary Rehabilitation Routine Comment: Physician Instructions: Evaluate and treat 07/13/24 10:40 Consult to Home Health Routine Comment: Reason For Exam: Home health services upon discharge 07/14/24 11:02 Consult to Physical Therapy Evaluate & Treat Comment: Physician Instructions: Evaluate and Treat Discharge provider: David Nobles DO Summary Hospital Course Discharge Diagnosis: Acute respiratory failure with hypoxia COPD exacerbation. Hyperlipidemia. Depression/anxiety. Overactive bladder. Hospital Course: 88 F admitted with hypoxia on ambulation, new acute respiratory failure with hypoxia. This is presumed secondary to COPD exacerbation of unclear underlying etiology. She improved with steroids and azithromycin, with resolution of her symptoms. She was discharged on another few days of steroids and azithromycin, her hypoxia had resolved at the time of discharge. No other medication changes are recommended on discharge. Time Spent with Patient Time spent: Less than 30 minutes Exam Vital Signs (past 8 hours): - 07/15/24 03:00 07/15/24 08:00 Temperature 99.7 F H 97.4 F L Pulse Rate 73 79 Respiratory Rate 18 20 Blood Pressure 114/69 149/84 H Pulse Oximetry 93 93 Oxygen Flow Rate 0 Oxygen Delivery Method Room Air Oxygen Flow Rate 0 Narrative Exam Narrative: She is alert and oriented x3 No apparent distress. Heart is regular rate and rhythm without murmur. Lungs are clear to auscultation bilaterally. Extremities have no ankle edema. Objective Labs 07/12/24 21:08 07/15/24 08:50 Labs: Laboratory Results - last 24 hr 07/15/24 08:50 Sodium 135 L Potassium 3.9 Chloride 98 Carbon Dioxide 27 BUN 17 Creatinine 0.68 Estimated GFR > 60 BUN/Creatinine Ratio 25.0 H Glucose 137 H Calcium 10.0 Magnesium 2.6 H Total Bilirubin 0.5 AST 31 ALT 32 Alkaline Phosphatase 64 Total Protein 6.9 Albumin 4.3 Globulin 2.6 Albumin/Globulin Ratio 1.7 PFSH Medical History Fall Chronic prescription benzodiazepine use Pulmonary nodule less than 6 mm in diameter with low risk for malignant neoplasm (~07/2020) Peripheral neuropathy Bronchitis Abnormal LFTs Restrictive lung disease Dysphagia, pharyngeal phase Obesity (BMI 30-39.9) Urinary incontinence (2004) Foot pain, left (2009) Ankle pain, left (2009) Lumbar spinal stenosis Cataract (03/2014) Hyperlipidemia Hypothyroidism 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) Essential tremor (05/19/15) Urge incontinence of urine (05/14/15) Chronic lumbar radiculopathy (08/26/14) Chronic left shoulder pain (12/25/17) Relationship problem with family member Internal hemorrhoids (~08/2020) Feared complaint without diagnosis Allergy to sulfa drugs Tinnitus (~2014) Chicken pox Mumps (1966) Surgical History History of esophagogastroduodenoscopy (EGD) (~03/2016) Anesthesia H/O abdominal surgery (03/2007) History of vaginal surgery (~2008) History of partial knee replacement (2007) History of partial knee replacement (2003) History of hip replacement (2001) History of hip replacement (1996) Status post hysterectomy with oophorectomy (1969) Family History Father Heart disease Pulmonary embolism Grandmother Heart disease Heart attack Sister Cancer Melanoma Grandmother No problems noted. Mother Dementia Grandfather Pneumonia Grandfather Dementia Daughter Depression Social History marital status: details: 07/22/2007 number of children: 1 household members: none lives independently: Yes housing: condominium pets and animals: No occupational status: previously employed Smoking Status: Never smoker alcohol intake: current substance use type: does not use Discharge Plan Discharge Plan Patient Disposition: Home Health Service Provider Discharge Comment: you were admitted to the hospital with COPD exacerbation. Improved with steroids. No longer requiring oxygen, safe for discharge home. Continue a few more days of prednisone, no other medication changes are needed. Discharge orders & Medications Prescriptions: New prednisone 20 mg tablet 40 mg PO DAILY 4 Days Qty: 8 0RF azithromycin 250 mg tablet 250 mg PO DAILY 4 Days Qty: 4 0RF Rx Instructions: start on day 2 of therapy Continued (DME) Disabled Parking Permit See Rx Instructions .ROUTE .MEDSUPPLY Qty: 1 0RF Rx Instructions: Valid for 5 years sertraline 100 mg tablet 150 mg PO DAILY Qty: 135 3RF tolterodine 4 mg capsule,extended release 24hr See Rx Instructions .ROUTE .COMPLEX Qty: 90 0RF Hold Instructions: Trialing other med Dose Instruction: TAKE 1 CAPSULE BY MOUTH EVERY DAY Rx Instructions: TAKE 1 CAPSULE BY MOUTH EVERY DAY albuterol sulfate 90 mcg/actuation HFA aerosol inhaler 2 puff INHALATION Q6H PRN (Reason: bronchospasm) Qty: 18 6RF simvastatin 40 mg tablet 40 mg PO BEDTIME Qty: 90 3RF nystatin-triamcinolone 100,000-0.1 unit/gram-% ointment 1 applic topical DAILY PRN (Reason: yeast) Hair,Skin and Nails Tablet 1 tab PO DAILY PreserVision AREDS [id number] [id number] Tablet 2 tab PO BID olanzapine 5 mg tablet 5 mg PO DAILY lorazepam 1 mg Tablet 1 - 2 mg PO BID PRN (Reason: anxiety or sleep) Follow up/Referrals: Ariella Boo DO [Primary Care Provider] - Diet/Activity/Treatments Diet: Diet as Tolerated and Regular Activity: As tolerated, no restrictions. Visit Report/Discharge Packet Instructions: DI for Chronic Obstructive Pulmonary Disease Stand Alone Forms: Patient Portal/API, Stroke Signs & Symptoms Discharge Data Primary Care Provider: Ariella Boo VTE Deep Vein Thrombosis/Pulmonary Embolism Present on Admission: No
== END 2024-07-15 14:00 | disposition home health service (06) | DRG 190 ==
LOC: ED 23:53 → AC 23:54
PROVIDERS: Admitting Provider Internal Medicine; Emergency Provider Emergency Medicine; PCP Family Medicine; Referring Provider Emergency Medicine; Visit Provider Internal Medicine
DX: J44.1 Chronic obstructive pulmonary disease with (acute) exacerbation (principal); J96.01 Acute respiratory failure with hypoxia; J98.4 Other disorders of lung; R94.2 Abnormal results of pulmonary function studies; E78.5 Hyperlipidemia, unspecified; F32.A Depression, unspecified; F41.9 Anxiety disorder, unspecified; N32.81 Overactive bladder; Z77.22 Contact with and (suspected) exposure to environmental tobacco smoke (acute) (chronic)
CPT/HCPCS: 36415; 71045; 80053; 82550; 83605; 83690; 83735; 83880; 84145; 84484; 85025; 87040; 87633; 93005; 94060; 94640; 94726; 94729; 94762; 96365; 96375; 97161; 97535; 99284; 99285; J1650; J1956; J2919; J7613

== ENCOUNTER 2024-08-05 12:38 | Inpatient (IN) | payer MEDICARE, OTHER, SELFPAY ==
[2024-07-13 00:45] VITALS: BMI 35.0
[2024-08-05] VITALS (16 sets, daily range): BP systolic 93–116; BP diastolic 57–71; PULSE 84–109; RESP 18–38; TEMP 36.2–36.3; O2SAT 90–95; BMI 33.3
--- NOTE | 2024-08-05 12:46 | DI.RAD.S_ITS ---
PROCEDURE: XR CHEST 1V INDICATIONS: Shortness of breath TECHNIQUE: One view of the chest was acquired. COMPARISON: [facility], CR, XR CHEST 1V, 07/12/2024, 21:03. [facility], CR, XR CHEST 1V, 06/25/2024, 11:08. FINDINGS: Surgical changes and devices: None. Lungs and pleura: Lungs are clear. No pleural effusions or pneumothorax. Mediastinum: Mediastinal contours appear normal. Heart size is normal. Bones and chest wall: No suspicious bony lesions. Overlying soft tissues appear unremarkable. IMPRESSION: No acute cardiopulmonary abnormality is seen. Dictated by: Evens Hyde M.D. on 08/05/2024 at 14:14 Approved by: Evens Hyde M.D. on 08/05/2024 at 14:15
--- NOTE | 2024-08-05 12:46 | EKG_ITS ---
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
--- NOTE | 2024-08-05 12:49 | ED_ITS ---
HPI - SOB/Dyspnea General Chief Complaint: Shortness of Breath/Dyspnea Stated Complaint: COPD, bad cough, SOB Time Seen by Provider: 08/05/24 12:48 History of Present Illness HPI Narrative: Patient is a 88-year-old female past medical history of COPD hyperlipidemia comes into the ED from walk-in clinic for shortness of breath, states it has been ongoing present for the past few days, states it got worse today therefore tried to go to urgent Care, states that when she was there they sent her here. She has not requiring any supplemental oxygen. But is speaking in short sentences but tolerating secretions no stridor no voice change. She has not complaining of any chest pain or any other symptoms at this time. Related Data Home Medications Medication Instructions Recorded Confirmed vitamins A,C,V-xalt-cetmsf 2,148 2 tab PO BID 08/26/20 08/05/24 mcg-113 mg-45 mg-17.4 mg tablet (PreserVision AREDS) multivitamin with minerals 1 tab PO DAILY 02/13/24 08/05/24 (Hair,Skin and Nails tablet) lorazepam 1 mg tablet 1 - 2 mg PO BID PRN anxiety or 07/13/24 08/05/24 sleep olanzapine 5 mg tablet 5 mg PO DAILY 07/13/24 08/05/24 cetirizine 10 mg tablet 10 mg PO DAILY 08/05/24 08/05/24 miconazole nitrate 2 % topical 1 applic topical QAM 08/05/24 08/05/24 powder (Zeasorb AF) nystatin 100,000 unit/gram topical topical 08/05/24 08/05/24 powder (Nystop) omeprazole 20 mg capsule,delayed 20 mg PO DAILY 08/05/24 08/05/24 release pregabalin 75 mg capsule mg PO 08/05/24 08/05/24 quetiapine 25 mg tablet 25 mg PO ONCE PM 08/05/24 08/05/24 trazodone 50 mg tablet 25 mg PO ONCE PM PRN 08/05/24 08/05/24 Previous Rx's Medication Instructions Recorded Disabled Parking Permit #1 ea 02/21/22 simvastatin 40 mg tablet 40 mg PO BEDTIME #90 tabs 09/19/23 sertraline 100 mg tablet 150 mg (1.5 x 100 mg) PO DAILY 11/03/23 #135 tabs albuterol sulfate 90 mcg/actuation 2 puff inhalation Q6H PRN 05/24/24 aerosol inhaler bronchospasm #18 grams tolterodine 4 mg capsule,extended 4 mg PO DAILY #90 caps 07/22/24 release 24 hr Allergies Allergy/AdvReac Type Severity Reaction Status Date / Time digoxin [DIGOXIN] Allergy Mild LIGHTHEADED Verified 05/06/24 11:22 latex [LATEX] Allergy Mild Verified 05/06/24 11:22 silver Allergy Mild BLISTERS Verified 05/06/24 11:22 (FROM TEGADERM MESH) sulfamethoxazole Allergy Mild Rash Verified 05/06/24 11:22 [From Bactrim] trimethoprim [From Bactrim] Allergy Mild Rash Verified 05/06/24 11:22 cephalexin AdvReac Nausea Verified 05/06/24 11:22 fluconazole AdvReac Nausea Verified 05/06/24 11:22 Review of Systems Review of Systems Narrative: HEENT: Denies headache, eye drainage, eye irritation, head trauma, sore throat, voice change Cardiovascular: Denies any chest pain, palpitations, shortness of breath, tachycardia Respiratory: Positive cough, shortness of breath, wheeze GI/: Denies any abdominal pain, nausea, vomiting, diarrhea, bright red blood per rectum, melanotic stools, urinary frequency, urinary retention, dysuria, hematuria MSK: Denies any joint pain, muscle pains, swelling Skin: Denies any rashes, lesions, discoloration Neuro: Denies any headache, lightheadedness, dizziness, fainting, weakness Psych: Denies SI/HI Patient History Medical History Fall Chronic prescription benzodiazepine use Pulmonary nodule less than 6 mm in diameter with low risk for malignant neoplasm (~07/2020) Peripheral neuropathy Bronchitis Abnormal LFTs Restrictive lung disease Dysphagia, pharyngeal phase Obesity (BMI 30-39.9) Urinary incontinence (2004) Foot pain, left (2009) Ankle pain, left (2009) Lumbar spinal stenosis Cataract (03/2014) Hyperlipidemia Hypothyroidism 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) Essential tremor (05/19/15) Urge incontinence of urine (05/14/15) Chronic lumbar radiculopathy (08/26/14) Chronic left shoulder pain (12/25/17) Relationship problem with family member Internal hemorrhoids (~08/2020) Feared complaint without diagnosis Allergy to sulfa drugs Tinnitus (~2014) Chicken pox Mumps (1967) Surgical History History of esophagogastroduodenoscopy (EGD) (~03/2016) Anesthesia H/O abdominal surgery (03/2007) History of vaginal surgery (~2008) History of partial knee replacement (2007) History of partial knee replacement (2003) History of hip replacement (2001) History of hip replacement (1996) Status post hysterectomy with oophorectomy (1969) Family History Father Heart disease Pulmonary embolism Grandmother Heart disease Heart attack Sister Cancer Melanoma Grandmother No problems noted. Mother Dementia Grandfather Pneumonia Grandfather Dementia Daughter Depression Social History marital status: details: 07/22/2007 number of children: 1 household members: none lives independently: [facility] pets and animals: No occupational status: previously employed Smoking Status: Never smoker alcohol intake: current substance use type: does not use Smoking Status: Never smoker alcohol intake frequency: holidays/special occasions only Substance Use Type: does not use Exam Narrative Exam Narrative: General: Cooperative, comfortable, well-developed, not in acute distress HEENT: Normocephalic, atraumatic, PERRLA, normal sclera, eyelids normal, Neck: Active full range of motion, atraumatic Chest: Normal to inspection, negative crepitus, no overlying erythema ecchymosis Respiratory: Mild expiratory wheezes lung camp, but protecting airway, no voice changes no stridor, wheezing on exam Cardiology: Regular rate rhythm negative gallop, murmur, rubs GI/: Normal to inspection, soft, nonrigid, no tenderness to palpation, exam deferred MSK: Full range of active range of motion of all 4 extremities, atraumatic Skin: No rashes lesions noted Neuro: Alert awake oriented x3, moves all 4 extremities spontaneously, cranial nerves intact, able to answer all questions appropriately follows commands appropriately Psych: Cooperative, negative suicidal or homicidal ideations Initial Vital Signs Initial Vital Signs: Vital Signs Temperature 97.3 F L 08/05/24 12:43 Pulse Rate 95 H 08/05/24 12:43 Respiratory Rate 24 08/05/24 12:43 Blood Pressure 114/70 08/05/24 12:43 Pulse Oximetry 91 08/05/24 12:43 Oxygen Delivery Method Room Air 08/05/24 12:43 Course Orders Ordered: ED Orders 08/05/24 12:46 XR chest 1V Stat EKG-12 Lead Stat Measure peak expiratory flow ONCE RT Consult Eval and Treat NOW 08/05/24 13:02 Complete Blood Count AUTO DIFF Stat Comprehensive Metabolic Panel Stat Lactate (Lactic Acid) Stat MAG [Magnesium] Stat NT-proBNP (BNP-Adult 18+) Stat Prothrombin Time INR Stat Troponin I Stat 08/05/24 13:30 Covid-19 + FLU A/B + RSV - PCR Stat Discontinued Medications Albuterol (Albuterol 2.5 Mg/3 Ml Neb (Adult)) 2.5 mg INH NOW ONE Stop: 08/05/24 13:28 Last Admin: 08/05/24 13:29 Dose: 2.5 mg Documented By: EASTON Albuterol (Albuterol 2.5 Mg/3 Ml Neb (Adult)) 2.5 mg INH NOW ONE Stop: 08/05/24 14:28 Last Admin: 08/05/24 14:44 Dose: 2.5 mg Documented By: EASTON Albuterol/Ipratropium (Albuterol/Ipratropium 3 Ml Ampul) 3 ml INH NOW ONE Stop: 08/05/24 12:59 Last Admin: 08/05/24 13:15 Dose: 3 ml Documented By: EASTON Magnesium Sulfate (Magnesium Sulfate) 2 gm in 50 mls @ 150 mls/hr IV NOW ONE Stop: 08/05/24 13:17 Last Infusion: 08/05/24 13:56 Dose: Infused Documented By: ANTHONY Co-signed By: ROSARIO Admin: 08/05/24 13:32 Dose: 150 mls/hr Documented By: DEENA Co-signed By: STEVEN Methylprednisolone (Methylprednisolone 125 Mg/2 Ml Vial) 125 mg IV NOW ONE Stop: 08/05/24 12:59 Last Admin: 08/05/24 13:33 Dose: 125 mg Documented By: DEENA Vital Signs Vital signs: Vital Signs - 8 hr 08/05/24 12:43 08/05/24 12:56 08/05/24 13:00 Temperature 97.3 F L Pulse Rate 95 H 93 H 93 H Respiratory Rate 24 Blood Pressure 114/70 Pulse Oximetry 91 93 92 Oxygen Delivery Method Room Air Oxygen Flow Rate Fraction of Inspired Oxygen 08/05/24 13:02 08/05/24 13:02 08/05/24 13:15 Temperature Pulse Rate 93 H 89 Respiratory Rate 20 Blood Pressure 106/64 Pulse Oximetry 92 91 Oxygen Delivery Method Room Air Oxygen Flow Rate 0 Fraction of Inspired Oxygen 21 08/05/24 13:29 08/05/24 13:30 08/05/24 13:30 Temperature Pulse Rate 84 92 H Respiratory Rate 20 Blood Pressure 105/58 L Pulse Oximetry 93 90 L Oxygen Delivery Method Room Air Room Air Oxygen Flow Rate 0 Fraction of Inspired Oxygen 08/05/24 14:00 08/05/24 14:00 Temperature Pulse Rate 86 Respiratory Rate 31 H Blood Pressure 111/61 Pulse Oximetry 90 L Oxygen Delivery Method Room Air Oxygen Flow Rate Fraction of Inspired Oxygen MDM - SOB/Dyspnea Differential Diagnosis Differential diagnosis: Likely acute exacerbation of chronic obstructive airways disease, congestive heart failure and community acquired pneumonia Medical Records Attestation: I reviewed the patient's medical records. Lab Data Attestation: I reviewed the patient's lab results. 08/05/24 13:02 08/05/24 13:02 Labs: Lab Results 08/05/24 Range/Units 13:02 WBC 9.5 (4.5-11.0) X10^3/uL RBC 4.95 (4.0-5.2) X10^6/uL Hgb 14.5 (12.0-16.0) g/dL Hct 42.9 (36-46) % MCV 86.7 (80-100) fL MCH 29.3 (26-34) PG MCHC 33.8 (30-36) % RDW 13.5 (11.6-14.8) % Plt Count 314 (150-400) X10^3/uL Neut % (Auto) 76.0 H (50-75) % Lymph % (Auto) 11.8 L (25-40) % [place] % (Auto) 6.4 (3-14) % Eos % (Auto) 5.2 H (2-4) % Baso % (Auto) 0.6 (0-2) % Neut # (Auto) 7200 H (9847-7462) /uL Lymph # (Auto) 1100 (8933-5860) /uL [place] # (Auto) 600 (0-900) /uL Eos # (Auto) 500 H (0-450) /uL Baso # (Auto) 100 (0-100) /uL PT 11.6 (9.4-12.5) SECONDS INR 1.0 (0.9-1.3) Sodium 135 L (137-145) mmol/L Potassium 4.3 (3.4-5.1) mmol/L Chloride 100 (98-107) mmol/L Carbon Dioxide 27 (22-32) mmol/L BUN 19 H (7-17) mg/dL Creatinine 0.69 (0.52-1.04) mg/dL Estimated GFR > 60 (>60) mL/min BUN/Creatinine Ratio 27.5 H (6-22) Glucose 121 H (80-110) mg/dL Lactate 1.7 (0.7-2.1) mmol/L Calcium 10.5 H (8.4-10.2) mg/dL Magnesium 2.2 (1.6-2.3) mg/dL Total Bilirubin 0.5 (0.2-1.3) mg/dL AST 31 (14-36) IU/L ALT 28 (<35) IU/L Alkaline Phosphatase 78 (38-126) U/L Troponin I < 0.012 (0.01-0.034) ng/mL NT-Pro-B Natriuret Pep 71 (<450) pg/mL Total Protein 7.6 (6.3-8.2) g/dL Albumin 4.6 (3.5-5.0) g/dL Globulin 3.0 (1.7-4.1) g/dL Albumin/Globulin Ratio 1.5 (1.0-2.8) Imaging Data Chest x-ray: Radiologist's Impression: PROCEDURE: XR CHEST 1V INDICATIONS: Shortness of breath TECHNIQUE: One view of the chest was acquired. COMPARISON: [facility], CR, XR CHEST 1V, 07/12/2024, 21:03. [facility], CR, XR CHEST 1V, 06/25/2024, 11:08. FINDINGS: Surgical changes and devices: None. Lungs and pleura: Lungs are clear. No pleural effusions or pneumothorax. Mediastinum: Mediastinal contours appear normal. Heart size is normal. Bones and chest wall: No suspicious bony lesions. Overlying soft tissues appear unremarkable. IMPRESSION: No acute cardiopulmonary abnormality is seen. ECG Data Attestation: I personally reviewed and interpreted this ECG as follows: Interpretation: EKG interpreted by ED physician, sinus at 91 beats per minute QTC 455, normal axis nonspecific ST changes no STEMI MDM Narrative Medical decision making narrative: Patient is a 88-year-old female history of COPD comes into the ED from walk-in clinic for COPD exacerbation/shortness of breath. Patient without any acute findings of pneumonia electrolytes normal, patient without significant improvement on lung auscultation after 2 rounds of DuoNeb albuterol as well as Solu-Medrol and magnesium. Therefore patient will require admission to the hospital for continued treatment of COPD exacerbation. The patient's management plan was discussed Dr. Vargas, who agrees to admit the patient to their service and assumes care of this patient at this time. Full admission orders will be placed by the primary team. Discharge Plan Departure Prescriptions: No Action quetiapine 25 mg tablet 25 mg PO ONCE PM omeprazole 20 mg capsule,delayed release(DR/EC) 20 mg PO DAILY cetirizine 10 mg tablet 10 mg PO DAILY trazodone 50 mg tablet 25 mg PO ONCE PM PRN nystatin [Nystop] 100,000 unit/gram powder topical pregabalin 75 mg capsule PO miconazole nitrate [Zeasorb AF] 2 % powder 1 applic topical QAM (DME) Disabled Parking Permit See Rx Instructions .ROUTE .MEDSUPPLY Qty: 1 0RF Rx Instructions: Valid for 5 years sertraline 100 mg tablet 150 mg PO DAILY Qty: 135 3RF albuterol sulfate 90 mcg/actuation HFA aerosol inhaler 2 puff INHALATION Q6H PRN (Reason: bronchospasm) Qty: 18 6RF tolterodine 4 mg capsule,extended release 24hr 4 mg PO DAILY Qty: 90 0RF Hold Instructions: Trialing other med simvastatin 40 mg tablet 40 mg PO BEDTIME Qty: 90 3RF Hair,Skin and Nails Tablet 1 tab PO DAILY PreserVision AREDS 7,160-113-100 [id number] Tablet 2 tab PO BID olanzapine 5 mg tablet 5 mg PO DAILY lorazepam 1 mg Tablet 1 - 2 mg PO BID PRN (Reason: anxiety or sleep) Referrals: Ariella Boo DO [Primary Care Provider] -
[2024-08-05 13:10] LABS: Add Manual Diff / Slide Review NO; Basophils Absolute Auto 100 /uL (0-100); Basophils Percent Auto 0.6 % (0-2); Eosinophils Absolute Auto 500 /uL (0-450); Eosinophils Percent Auto 5.2 % (2-4); Hematocrit 42.9 % (36-46); Hemoglobin 14.5 g/dL (12.0-16.0); Lymphocytes Absolute Auto 1100 /uL (1100-4500); Lymphocytes Percent Auto 11.8 % (25-40); Mean Corpuscular HGB Conc 33.8 % (30-36); Mean Corpuscular Hemoglobin 29.3 PG (26-34); Mean Corpuscular Volume 86.7 fL (80-100); Monocytes Absolute Auto 600 /uL (0-900); Monocytes Percent Auto 6.4 % (3-14); Neutrophils Absolute Auto 7200 /uL (1500-7000); Platelet Count 314 X10^3/uL (150-400); Red Blood Cell Count 4.95 X10^6/uL (4.0-5.2); Red Cell Distribution Width 13.5 % (11.6-14.8); White Blood Cell Count 9.5 X10^3/uL (4.5-11.0)
[2024-08-05] MEDS: ALBUTEROL/IPRATROPIUM 3 ML AMPUL INH ×2 (13:15→19:38)
[2024-08-05 13:24] LABS: Prothrombin Time 11.6 SECONDS (9.4-12.5)
[2024-08-05] MEDS: ALBUTEROL 2.5 MG/3 ML NEB (ADULT) INH ×2 (13:29→14:44)
[2024-08-05] MEDS: MAGNESIUM SULFATE 2 GM/50 ML PIGGYBACK IV (13:32)
[2024-08-05] MEDS: methylPREDNISolone 125 MG/2 ML VIAL IV (13:33)
[2024-08-05 13:34] LABS: Lactate (Lactic Acid) 1.7 mmol/L (0.7-2.1); Magnesium 2.2 mg/dL (1.6-2.3)
[2024-08-05 13:35] LABS: Alanine Aminotransferase 28 IU/L (<35); Albumin 4.6 g/dL (3.5-5.0); Albumin Globulin Ratio 1.5 (1.0-2.8); Alkaline Phosphatase 78 U/L (38-126); Aspartate Aminotransferase 31 IU/L (14-36); BUN Creatinine Ratio 27.5 (6-22); Bilirubin Total 0.5 mg/dL (0.2-1.3); Blood Urea Nitrogen 19 mg/dL (7-17); Calcium 10.5 mg/dL (8.4-10.2); Carbon Dioxide 27 mmol/L (22-32); Chloride 100 mmol/L (98-107); Estimated Glomerular Filt Rate > 60 mL/min (>60); Glucose 121 mg/dL (80-110); HEMOLYSIS < 15 (0-50); Potassium 4.3 mmol/L (3.4-5.1); Sodium 135 mmol/L (137-145); Total Protein 7.6 g/dL (6.3-8.2)
[2024-08-05 13:45] LABS: NT-proBNP (BNP-Adult 18+) 71 pg/mL (<450); Troponin I < 0.012 ng/mL (0.01-0.034)
--- NOTE | 2024-08-05 14:19 | PC.NURSE ---
1400- Patient sats dropped to 89%, placed the patient on 1L NC to maintain sats above 92%
[2024-08-05 15:03] LABS: Influenza A - CEPHEID Flu A NEGATIVE (NEGATIVE); Influenza B - CEPHEID Flu B NEGATIVE (NEGATIVE); Respiratory Syncytial Virus Negative (Negative)
[2024-08-05 15:08] LABS: COVID-19 CEPHEID 4-PLEX PCR Negative (Negative)
--- NOTE | 2024-08-05 15:27 | P.HP_ITS ---
History of Present Illness History of Present Illness Date Patient Seen: 08/05/24 Chief complaint: COPD, bad cough, SOB Narrative: From ED doctor: Patient is a 88-year-old female past medical history of COPD hyperlipidemia comes into the ED from walk-in clinic for shortness of breath, states it has been ongoing present for the past few days, states it got worse today therefore tried to go to urgent Care, states that when she was there they sent her here. She has not requiring any supplemental oxygen. But is speaking in short sentences but tolerating secretions no stridor no voice change. She has not complaining of any chest pain or any other symptoms at this time. Additional information: She was been more short of breath for about 3 days. She did have a cough which was intermittently productive of phlegm. No fevers, or chills. No chest pain. She also denies orthopnea, or leg edema. She has been using her usual lung medications. She was an appointment with her lung doctor on Monday. She also did note increased fatigue and some dyspnea with exertion. 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) Essential tremor (05/19/15) Urge incontinence of urine (05/14/15) Chronic lumbar radiculopathy (08/26/14) Chronic left shoulder pain (12/25/17) Relationship problem with family member Internal hemorrhoids (~08/2020) Feared complaint without diagnosis Allergy to sulfa drugs Tinnitus (~2014) Chicken pox Mumps (1966) Surgical History History of esophagogastroduodenoscopy (EGD) (~03/2016) Anesthesia H/O abdominal surgery (03/2007) History of vaginal surgery (~2008) History of partial knee replacement (2007) History of partial knee replacement (2003) History of hip replacement (2001) History of hip replacement (1996) Status post hysterectomy with oophorectomy (1969) Family History Father Heart disease Pulmonary embolism Grandmother Heart disease Heart attack Sister Cancer Melanoma Grandmother No problems noted. Mother Dementia Grandfather Pneumonia Grandfather Dementia Daughter Depression Social History marital status: details: 07/22/2007 number of children: 1 household members: none lives independently: Yes housing: condominium pets and animals: No occupational status: previously employed Smoking Status: Never smoker alcohol intake: current substance use type: does not use Meds Home Medications and Allergies Home Medications Medication Instructions Recorded Confirmed Type vitamins A,C,C-dbqi-juobqc 2,148 2 tab PO DAILY 08/26/20 08/05/24 History mcg-113 mg-45 mg-17.4 mg tablet (PreserVision AREDS) Disabled Parking Permit #1 ea 02/21/22 08/05/24 Rx simvastatin 40 mg tablet 40 mg PO BEDTIME #90 tabs 09/19/23 08/05/24 Rx albuterol sulfate 90 mcg/actuation 2 puff inhalation Q6H PRN 05/24/24 08/05/24 Rx aerosol inhaler bronchospasm #18 grams olanzapine 5 mg tablet 2.5 mg PO DAILY 07/13/24 08/05/24 History biotin 500 mcg capsule 1 mg PO TID 08/05/24 08/05/24 History cholecalciferol (vitamin D3) 50 150 mcg PO DAILY 08/05/24 08/05/24 History mcg (2,000 unit) capsule (Vitamin D3) lorazepam 0.5 mg tablet 0.25 mg PO BEDTIME PRN Insomnia 08/05/24 08/05/24 History omeprazole 20 mg capsule,delayed 20 mg PO DAILY 08/05/24 08/05/24 History release sertraline 100 mg tablet 100 mg PO DAILY 08/05/24 08/05/24 History tolterodine 4 mg capsule,extended 4 mg PO DAILY 08/05/24 08/05/24 History release 24 hr Allergies Allergy/AdvReac Type Severity Reaction Status Date / Time digoxin [DIGOXIN] Allergy Mild LIGHTHEADED Verified 05/06/24 11:22 latex [LATEX] Allergy Mild Verified 05/06/24 11:22 silver Allergy Mild BLISTERS Verified 05/06/24 11:22 (FROM TEGADERM MESH) sulfamethoxazole Allergy Mild Rash Verified 05/06/24 11:22 [From Bactrim] trimethoprim [From Bactrim] Allergy Mild Rash Verified 05/06/24 11:22 cephalexin AdvReac Nausea Verified 05/06/24 11:22 fluconazole AdvReac Nausea Verified 05/06/24 11:22 Review of Systems Review of Systems Narrative: All else reviewed and otherwise unremarkable except as noted in the history and physical. Exam Vital Signs (past 8 hours): - 08/05/24 12:43 08/05/24 12:56 08/05/24 13:00 Temperature 97.3 F L Pulse Rate 95 H 93 H 93 H Respiratory Rate 24 Blood Pressure 114/70 Pulse Oximetry 91 93 92 Oxygen Delivery Method Room Air Oxygen Flow Rate Fraction of Inspired Oxygen 08/05/24 13:02 08/05/24 13:02 08/05/24 13:15 Temperature Pulse Rate 93 H 89 Respiratory Rate 20 Blood Pressure 106/64 Pulse Oximetry 92 91 Oxygen Delivery Method Room Air Oxygen Flow Rate 0 Fraction of Inspired Oxygen 21 08/05/24 13:29 08/05/24 13:30 08/05/24 13:30 Temperature Pulse Rate 84 92 H Respiratory Rate 20 Blood Pressure 105/58 L Pulse Oximetry 93 90 L Oxygen Delivery Method Room Air Room Air Oxygen Flow Rate 0 Fraction of Inspired Oxygen 21 08/05/24 14:00 08/05/24 14:00 08/05/24 14:30 Temperature Pulse Rate 86 86 Respiratory Rate 31 H 38 H Blood Pressure 111/61 Pulse Oximetry 90 L 94 Oxygen Delivery Method Room Air Oxygen Flow Rate Fraction of Inspired Oxygen 08/05/24 14:30 08/05/24 14:44 08/05/24 15:00 Temperature Pulse Rate 91 H Respiratory Rate 20 33 H Blood Pressure 113/71 Pulse Oximetry 94 91 Oxygen Delivery Method Nasal Cannula Oxygen Flow Rate 2 Fraction of Inspired Oxygen 28 08/05/24 15:00 08/05/24 15:20 Temperature Pulse Rate Respiratory Rate Blood Pressure 111/57 L Pulse Oximetry 91 Oxygen Delivery Method Nasal Cannula Oxygen Flow Rate 1 Fraction of Inspired Oxygen Fraction of Inspired Oxygen 28 SaO2/FiO2 Ratio 335 Oxygen Delivery Method Nasal Cannula Oxygen Flow Rate 1 Narrative Exam Narrative: NAD, alert and oriented, fluent speech, calm. Normocephalic skull, EOMI, anicteric sclera, symmetric pupils. Oropharynx unremarkable, no droop. Neck supple, midline trachea, no adenopathy. Lungs with diffuse expiratory wheezing and expiration phase which is prolonged, normal rate and effort. Heart regular, no murmur gallop or rub. Abdomen is soft, non distended and non tender. Extremities are free of edema. Skin is free of rash or lesions. Joints are not swollen or deformed. Judgment appears to be normal. Objective ECG Impression: Normal sinus rhythm Right bundle branch block Electronically Signed On 08-05-2024 13:50:04 PDT by Zaheer Betancourt MD Imaging Chest x-ray: Radiologist's impression: No acute cardiopulmonary abnormality is seen. Labs 08/05/24 13:02 08/05/24 13:02 Labs: Laboratory Results - last 24 hr 08/05/24 08/05/24 13:02 13:30 WBC 9.5 RBC 4.95 Hgb 14.5 Hct 42.9 MCV 86.7 MCH 29.3 MCHC 33.8 RDW 13.5 Plt Count 314 Neut % (Auto) 76.0 H Lymph % (Auto) 11.8 L [place] % (Auto) 6.4 Eos % (Auto) 5.2 H Baso % (Auto) 0.6 Neut # (Auto) 7200 H Lymph # (Auto) 1100 [place] # (Auto) 600 Eos # (Auto) 500 H Baso # (Auto) 100 PT 11.6 INR 1.0 Sodium 135 L Potassium 4.3 Chloride 100 Carbon Dioxide 27 BUN 19 H Creatinine 0.69 Estimated GFR > 60 BUN/Creatinine Ratio 27.5 H Glucose 121 H Lactate 1.7 Calcium 10.5 H Magnesium 2.2 Total Bilirubin 0.5 AST 31 ALT 28 Alkaline Phosphatase 78 Troponin I < 0.012 NT-Pro-B Natriuret Pep 71 Total Protein 7.6 Albumin 4.6 Globulin 3.0 Albumin/Globulin Ratio 1.5 SARS-CoV-2 (PCR) Negative Influenza A (RT-PCR) Flu a negative Influenza B (RT-PCR) Flu b negative RSV (PCR) Negative Assessment & Plan Assessment & Plan narrative: 1. COPD exacerbation, present on admission and active. Neg 4 plex respiratory PCR. 2. Acute hypoxic respiratory failure, present on admission and active. 3. Restrictive lung disease, present on admission and active. 4. Hyperlipidemia, present on admission and stable. 5. Dysphagia, present on admission and active. 6. Depression and anxiety, present on admission and active. PLAN: -oxygen with a goal of using as little as possible to maintain sats of 88-90% to avoid CO2 retention. -continue corticosteroids with Medrol at 60 IV q.6 hours. -DuoNebs q.4 hours and albuterol nebs q.2h as needed. -doxycycline 100 p.o. b.i.d. -continue chronic medications without change. Full resuscitation FREDA is August 06 if she improves with regards to her breathing. Time-Based Coding :: 40 min spent with patient and on the chart (including review of chart, obtaining history, exam, reviewing outside data, placing orders, documenting exam and treatment plan, and counseling patient) on 08/05. Quality MIPS - Admit I confirm the patient?s Advance Care Plan is present, Code status is documented, Surrogate decision maker is in patient?s record [If Yes, STOP here]: Yes MIPS - Meds 'Current medications' to include all prescriptions, [id number] products, herbals, cannabis/cannabidiol products, and vitamin/mineral/dietary (nutritional) supplements. I have utilized all available resources to obtain, update, or review the patient?s current medications. [If Yes, STOP here]: Yes
--- NOTE | 2024-08-05 17:01 | PC.NURSE ---
Patient admitted for COPD and SOB. She has wheezes upon auscultation in bilateral lobes. Patient is sob with any kind of exertion. She is on 2l of 02 and sats are in the 90s.
[2024-08-05] MEDS: methylPREDNISolone 125 MG/2 ML VIAL 60 MG IV (17:26)
[2024-08-05] MEDS: DOCUSATE 100 MG CAPSULE PO (20:07)
[2024-08-05] MEDS: DOXYCYCLINE HYCLATE 100 MG TABLET PO (20:07)
[2024-08-05] MEDS: HEPARIN 5,000 UNIT/ML VIAL 5000 UNIT SUBCUT (20:07)
[2024-08-06] VITALS (10 sets, daily range): BP systolic 113–130; BP diastolic 66–77; PULSE 80–90; RESP 13–20; TEMP 36.3–36.6; O2SAT 93–97
[2024-08-06] MEDS: methylPREDNISolone 125 MG/2 ML VIAL 60 MG IV ×5 (00:01→23:52)
[2024-08-06 05:22] LABS: Add Manual Diff / Slide Review NO; Basophils Absolute Auto 0 /uL (0-100); Eosinophils Absolute Auto 0 /uL (0-450); Hematocrit 39.7 % (36-46); Hemoglobin 13.4 g/dL (12.0-16.0); Lymphocytes Absolute Auto 400 /uL (1100-4500); Lymphocytes Percent Auto 5.7 % (25-40); Mean Corpuscular HGB Conc 33.7 % (30-36); Mean Corpuscular Hemoglobin 29.5 PG (26-34); Mean Corpuscular Volume 87.4 fL (80-100); Monocytes Absolute Auto 100 /uL (0-900); Monocytes Percent Auto 1.2 % (3-14); Neutrophils Absolute Auto 6700 /uL (1500-7000); Neutrophils Percent Auto 93.1 % (50-75); Platelet Count 294 X10^3/uL (150-400); Red Blood Cell Count 4.54 X10^6/uL (4.0-5.2); Red Cell Distribution Width 13.7 % (11.6-14.8); White Blood Cell Count 7.2 X10^3/uL (4.5-11.0)
[2024-08-06 05:35] LABS: BUN Creatinine Ratio 37.1 (6-22); Blood Urea Nitrogen 23 mg/dL (7-17); Carbon Dioxide 26 mmol/L (22-32); Chloride 98 mmol/L (98-107); Estimated Glomerular Filt Rate > 60 mL/min (>60); Glucose 147 mg/dL (80-110); HEMOLYSIS < 15 (0-50); Potassium 4.2 mmol/L (3.4-5.1); Sodium 133 mmol/L (137-145)
--- NOTE | 2024-08-06 07:29 | PM.PN.1 ---
Subjective Subjective Interval history: Summary: admitted with COPD exacerbation. S: Slow improvement overnight. Still somewhat wheezy and dyspneic with exertion. Minimal cough. Exam Vital Signs (past 8 hours): - 08/06/24 00:00 08/06/24 04:00 Temperature 97.6 F 97.6 F Pulse Rate 88 86 Respiratory Rate 18 18 Blood Pressure 115/66 122/76 Pulse Oximetry 94 94 Oxygen Flow Rate 3 3 Fraction of Inspired Oxygen 28 SaO2/FiO2 Ratio 335 Oxygen Delivery Method Nasal Cannula Oxygen Flow Rate 3 Narrative Exam Narrative: NAD, alert and oriented. Fluent speech. Lungs are with diffuse expiratory lesion, normal rate and effort. Heart is regular, no murmur gallop or rub. Abdomen is soft, non distended. Extremities are free of edema. Objective Labs 08/06/24 05:00 08/06/24 05:00 Labs: Laboratory Results - last 24 hr 08/05/24 08/05/24 08/06/24 13:02 13:30 05:00 WBC 9.5 7.2 RBC 4.95 4.54 Hgb 14.5 13.4 Hct 42.9 39.7 MCV 86.7 87.4 MCH 29.3 29.5 MCHC 33.8 33.7 RDW 13.5 13.7 Plt Count 314 294 Neut % (Auto) 76.0 H 93.1 H Lymph % (Auto) 11.8 L 5.7 L [place] % (Auto) 6.4 1.2 L Eos % (Auto) 5.2 H 0.0 L Baso % (Auto) 0.6 0.0 Neut # (Auto) 7200 H 6700 Lymph # (Auto) 1100 400 L [place] # (Auto) 600 100 Eos # (Auto) 500 H 0 Baso # (Auto) 100 0 PT 11.6 INR 1.0 Sodium 135 L 133 L Potassium 4.3 4.2 Chloride 100 98 Carbon Dioxide 27 26 BUN 19 H 23 H Creatinine 0.69 0.62 Estimated GFR > 60 > 60 BUN/Creatinine Ratio 27.5 H 37.1 H Glucose 121 H 147 H Lactate 1.7 Calcium 10.5 H 10.0 Magnesium 2.2 Total Bilirubin 0.5 AST 31 ALT 28 Alkaline Phosphatase 78 Troponin I < 0.012 NT-Pro-B Natriuret Pep 71 Total Protein 7.6 Albumin 4.6 Globulin 3.0 Albumin/Globulin Ratio 1.5 SARS-CoV-2 (PCR) Negative Influenza A (RT-PCR) Flu a negative Influenza B (RT-PCR) Flu b negative RSV (PCR) Negative PFSH Medical History Fall Chronic prescription benzodiazepine use Pulmonary nodule less than 6 mm in diameter with low risk for malignant neoplasm (~07/2020) Peripheral neuropathy Bronchitis Abnormal LFTs Restrictive lung disease Dysphagia, pharyngeal phase Obesity (BMI 30-39.9) Urinary incontinence (2004) Foot pain, left (2009) Ankle pain, left (2009) Lumbar spinal stenosis Cataract (03/2014) Hyperlipidemia Hypothyroidism 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) Essential tremor (05/19/15) Urge incontinence of urine (05/14/15) Chronic lumbar radiculopathy (08/26/14) Chronic left shoulder pain (12/25/17) Relationship problem with family member Internal hemorrhoids (~08/2020) Feared complaint without diagnosis Allergy to sulfa drugs Tinnitus (~2014) Chicken pox Mumps (1966) Surgical History History of esophagogastroduodenoscopy (EGD) (~03/2016) Anesthesia H/O abdominal surgery (03/2007) History of vaginal surgery (~2008) History of partial knee replacement (2007) History of partial knee replacement (2003) History of hip replacement (2001) History of hip replacement (1996) Status post hysterectomy with oophorectomy (1969) Family History Father Heart disease Pulmonary embolism Grandmother Heart disease Heart attack Sister Cancer Melanoma Grandmother No problems noted. Mother Dementia Grandfather Pneumonia Grandfather Dementia Daughter Depression Social History marital status: details: 07/22/2007 number of children: 1 household members: none lives independently: Yes housing: condominium pets and animals: No occupational status: previously employed Smoking Status: Never smoker alcohol intake: current substance use type: does not use Assessment & Plan Assessment & Plan narrative: 1. COPD exacerbation, present on admission and active. Slow improvement, but still quite dyspneic. Neg 4 plex respiratory PCR. 2. Acute hypoxic respiratory failure, present on admission and active. 3. Restrictive lung disease, present on admission and active. 4. Hyperlipidemia, present on admission and stable. 5. Dysphagia, present on admission and active. 6. Depression and anxiety, present on admission and active. PLAN: -improving, but still too dyspneic to return home today. -we will continue treatment with bronchodilators and steroids. -we will wean oxygen as able. Full resuscitation FREDA is August 07 if she improves with regards to her breathing. Requires a 2nd midnight of care for COPD exacerbation. Her comorbid conditions restrictive lung disease places her at high risk for adverse outcomes. Time-Based Coding :: [TOTAL MINUTES] spent with patient and on the chart (including review of chart, obtaining history, exam, reviewing outside data, placing orders, documenting exam and treatment plan, and counseling patient) on [DATE]. Quality VTE Deep Vein Thrombosis/Pulmonary Embolism Present on Admission: No
[2024-08-06] MEDS: ALBUTEROL/IPRATROPIUM 3 ML AMPUL INH ×3 (07:56→18:29)
[2024-08-06] MEDS: DOXYCYCLINE HYCLATE 100 MG TABLET PO ×2 (08:35→20:21)
[2024-08-06] MEDS: HEPARIN 5,000 UNIT/ML VIAL 5000 UNIT SUBCUT ×2 (08:35→20:21)
[2024-08-06] MEDS: DOCUSATE 100 MG CAPSULE PO ×2 (08:35→20:20)
[2024-08-06] MEDS: SODIUM CHLORIDE 0.9% FLUSH 10 ML IV ×3 (12:11→20:23)
--- NOTE | 2024-08-06 15:35 | CM.DANOTE ---
Initial DCP Assessment Visit Note Reviewed EMR and team rounds for status updates. Met with pt at bedside to introduce self and role, pt was found to be alert/oriented, sitting upright in the recliner, and was able to discuss her plan for home d/c with preference to resume [facility]. She resides modified independently in her own condo in [place], uses a walker at baseline. Her friend/neighbor assists her with transportation to medical visits, shopping, etc, and will plan to drive her home Wed. 9:00am in order for her to be seen by her PCP visit. ELECTRICAL DESIGN TECHNICIAN will place orders for resumption of HH, and no further needs are indicated for CM assistance/resources at this time. Payor: Medicare, [employer] PCP: Ariella Boo Pt is a 88 year-old F admitted for COPD exacerbation. She had initially gone to the Walk[facility]in [facility] for worsening SOB over the last few days, was sent directly to the ED for workup. She does not use home O2 at baseline, was able to speak in short sentences, no other abnormal symptoms were noted. She received DuNeb as well as steroids in the ED, started on O2 and brought to the floor. DCP will continue to monitor for any further evolving needs prior to her d/c in the am. Discharge Planning/Care Management CM Discharge Assessment Start: 08/06/24 15:26 Freq: Status: Active Protocol: Document 08/06/24 15:26 DPL (Rec: 08/06/24 15:34 DPL [id number]) Discharge Planning Assessment Assigned Bulk Tank Car Unloader KATT Puckett Advance Directives? Yes: Yes; POL Advance Directives on File Yes History Provided By Patient,Medical Record Has Patient been admitted in last 30 Yes days? Comment 07/12-07/15/24 Prior Living Arrangements House Household Members none Type of transporation used prior to Relies on Others admit Independent with ADL's No: modified independent with a walker Is patient alert and oriented? Yes Needs Assistance With Home Chores / Shopping Caregiver for Another No DME Already Rented / Owned Elevated Toilet Seat,FWW / Walker Patient/Family Preference Home with Home Health Comment Patient plans to have her friend Andrew drive her home. Patient is indp at baseline, PT pending today. [facility] would [facility] for RN/ wound care and PT/OT for strengthening. Patient does not anticipate further needs from this CM team. Following closely for coordination of discharge plan . F2F and HH order completed, awaiting CB from [facility] to discuss this referral. Discharge Plan Home with Home Health Transportation Arrangement Friend Referrals Initiated Home Health Review Status In Process Please Provide Date Initial DC 08/06/24 Assessment Was Performed
[2024-08-07 05:21] LABS: Add Manual Diff / Slide Review NO; Basophils Absolute Auto 0 /uL (0-100); Basophils Percent Auto 0.1 % (0-2); Eosinophils Absolute Auto 0 /uL (0-450); Hematocrit 38.1 % (36-46); Hemoglobin 13.1 g/dL (12.0-16.0); Lymphocytes Absolute Auto 500 /uL (1100-4500); Lymphocytes Percent Auto 3.7 % (25-40); Mean Corpuscular HGB Conc 34.3 % (30-36); Mean Corpuscular Hemoglobin 29.5 PG (26-34); Monocytes Absolute Auto 300 /uL (0-900); Neutrophils Absolute Auto 12100 /uL (1500-7000); Neutrophils Percent Auto 94.2 % (50-75); Platelet Count 303 X10^3/uL (150-400); Red Blood Cell Count 4.43 X10^6/uL (4.0-5.2); Red Cell Distribution Width 13.8 % (11.6-14.8); White Blood Cell Count 12.9 X10^3/uL (4.5-11.0)
[2024-08-07] MEDS: methylPREDNISolone 125 MG/2 ML VIAL 60 MG IV (05:29)
[2024-08-07 05:32] LABS: Blood Urea Nitrogen 25 mg/dL (7-17); Calcium 9.9 mg/dL (8.4-10.2); Carbon Dioxide 26 mmol/L (22-32); Chloride 97 mmol/L (98-107); Estimated Glomerular Filt Rate > 60 mL/min (>60); Glucose 143 mg/dL (80-110); HEMOLYSIS < 15 (0-50); Potassium 4.7 mmol/L (3.4-5.1); Sodium 131 mmol/L (137-145)
[2024-08-07 07:00] VITALS: BP 143/82; PULSE 84; RESP 20; TEMP 36.7; O2SAT 92
[2024-08-07] MEDS: ALBUTEROL/IPRATROPIUM 3 ML AMPUL INH (07:49)
[2024-08-07 07:52] VITALS: O2SAT 92
--- NOTE | 2024-08-07 07:52 | P.DS_ITS ---
History of Present Illness History of Present Illness Chief complaint: COPD, bad cough, SOB Narrative: From ED doctor: Patient is a 88-year-old female past medical history of COPD hyperlipidemia comes into the ED from walk-in clinic for shortness of breath, states it has been ongoing present for the past few days, states it got worse today therefore tried to go to urgent Care, states that when she was there they sent her here. She has not requiring any supplemental oxygen. But is speaking in short sentences but tolerating secretions no stridor no voice change. She has not complaining of any chest pain or any other symptoms at this time. Additional information: She was been more short of breath for about 3 days. She did have a cough which was intermittently productive of phlegm. No fevers, or chills. No chest pain. She also denies orthopnea, or leg edema. She has been using her usual lung medications. She was an appointment with her lung doctor on Monday. She also did note increased fatigue and some dyspnea with exertion. Discharge Providers Provider Date of admission: 08/05/24 14:49 Discharge Date: 08/07/24 Primary care physician: Ariella Boo DO Consults: 08/05/24 15:26 Consult to Cardio/Pulmonary Rehabilitation Routine Comment: Physician Instructions: Evaluate and treat Discharge provider: Haile Vargas MD Summary Hospital Course Discharge Diagnosis: 1. COPD exacerbation, present on admission and improved. Neg 4 plex respiratory PCR. 2. Acute hypoxic respiratory failure, present on admission and improved. 3. Restrictive lung disease, present on admission and active. 4. Hyperlipidemia, present on admission and stable. 5. Dysphagia, present on admission and active. 6. Depression and anxiety, present on admission and active. Hospital Course: She presented with acute exacerbation of COPD with dyspnea and excessive wheezing. She was treated in typical fashion with oral antibiotics, bronchodilators, and IV steroids. She initially did require oxygen. She would improve with these measures. She had an appointment with her account executive sales representative on the morning of discharge and was felt to be reasonably stable for discharge and to see both her account executive sales representative and primary care doctor on the day of discharge. These appointments were already arranged prior to her admission. Status at Discharge Cognitive/behavioral status at discharge: oriented Functional status at discharge: uses cane/walker Overall status at discharge: patient is progressing back to baseline Time Spent with Patient Time spent: Greater than 30 minutes Exam Vital Signs (past 8 hours): Fraction of Inspired Oxygen 28 SaO2/FiO2 Ratio 339 Oxygen Delivery Method Nasal Cannula Oxygen Flow Rate 2 Narrative Exam Narrative: NAD, alert and oriented. Fluent speech. Lungs are clear, normal rate and effort. Heart is regular, no murmur gallop or rub. Abdomen is soft, non distended. Extremities are free of edema. Objective Labs 08/07/24 05:10 08/07/24 05:10 Labs: Laboratory Results - last 24 hr 08/07/24 05:10 WBC 12.9 H D RBC 4.43 Hgb 13.1 Hct 38.1 MCV 86.0 MCH 29.5 MCHC 34.3 RDW 13.8 Plt Count 303 Neut % (Auto) 94.2 H Lymph % (Auto) 3.7 L [place] % (Auto) 2.0 L Eos % (Auto) 0.0 L Baso % (Auto) 0.1 Neut # (Auto) 94195 H Lymph # (Auto) 500 L [place] # (Auto) 300 Eos # (Auto) 0 Baso # (Auto) 0 Sodium 131 L Potassium 4.7 Chloride 97 L Carbon Dioxide 26 BUN 25 H Creatinine 0.61 Estimated GFR > 60 BUN/Creatinine Ratio 41.0 H Glucose 143 H Calcium 9.9 PFSH Medical History (Updated 08/07/24 @ 12:00 by Ariella Boo DO) Acute exacerbation of chronic obstructive pulmonary disease (~07/2024) Fall Chronic prescription benzodiazepine use Pulmonary nodule less than 6 mm in diameter with low risk for malignant neoplasm (~07/2020) Peripheral neuropathy Bronchitis Abnormal LFTs Restrictive lung disease Dysphagia, pharyngeal phase Obesity (BMI 30-39.9) Urinary incontinence (2004) Foot pain, left (2009) Ankle pain, left (2009) Lumbar spinal stenosis Cataract (03/2014) Hyperlipidemia Hypothyroidism 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) Essential tremor (05/19/15) Urge incontinence of urine (05/14/15) Chronic lumbar radiculopathy (08/26/14) Chronic left shoulder pain (12/25/17) Relationship problem with family member Internal hemorrhoids (~08/2020) Feared complaint without diagnosis Allergy to sulfa drugs Tinnitus (~2014) Chicken pox Mumps (1966) Surgical History History of esophagogastroduodenoscopy (EGD) (~03/2016) Anesthesia H/O abdominal surgery (03/2007) History of vaginal surgery (~2008) History of partial knee replacement (2007) History of partial knee replacement (2003) History of hip replacement (2001) History of hip replacement (1996) Status post hysterectomy with oophorectomy (1969) Family History Father Heart disease Pulmonary embolism Grandmother Heart disease Heart attack Sister Cancer Melanoma Grandmother No problems noted. Mother Dementia Grandfather Pneumonia Grandfather Dementia Daughter Depression Social History marital status: details: 07/22/2007 number of children: 1 household members: none lives independently: Yes housing: [facility] pets and animals: No occupational status: previously employed Smoking Status: Never smoker alcohol intake: current substance use type: does not use Discharge Assessment & Plan Assessment and Plan Assessment: 1. COPD exacerbation, present on admission and improved. Neg 4 plex respiratory PCR. 2. Acute hypoxic respiratory failure, present on admission and improved. 3. Restrictive lung disease, present on admission and active. 4. Hyperlipidemia, present on admission and stable. 5. Dysphagia, present on admission and active. 6. Depression and anxiety, present on admission and active. Plan of Treatment: Discharge home, 3 more days of doxycycline 100 b.i.d., 3 more days of prednisone 40 daily. Follow up with pulmonology and PCP in the day of discharge as previously scheduled. Discharge Plan Discharge Plan Patient Disposition: Hospice - Home Provider Discharge Comment: Stable for discharge home, she will see her account executive sales representative and PCP after discharge this morning. These appointments were already made prior to her admission. Discharge orders & Medications Prescriptions: New doxycycline hyclate 100 mg Tablet 100 mg PO BID Qty: 6 0RF prednisone 20 mg tablet 40 mg PO DAILY Qty: 6 0RF Continued omeprazole 20 mg capsule,delayed release(DR/EC) 20 mg PO DAILY (DME) Disabled Parking Permit See Rx Instructions .ROUTE .MEDSUPPLY Qty: 1 0RF Rx Instructions: Valid for 5 years albuterol sulfate 90 mcg/actuation HFA aerosol inhaler 2 puff INHALATION Q6H PRN (Reason: bronchospasm) Qty: 18 6RF simvastatin 40 mg tablet 40 mg PO BEDTIME Qty: 90 3RF PreserVision AREDS [id number] Tablet 2 tab PO DAILY olanzapine 5 mg tablet 2.5 mg PO DAILY Patient Comments: States she takes it @ 2000 every night tolterodine 4 mg capsule,extended release 24hr 4 mg PO DAILY lorazepam 0.5 mg Tablet 0.25 mg PO BEDTIME PRN (Reason: Insomnia) biotin 500 mcg Capsule 1 mg PO TID sertraline 100 mg tablet 100 mg PO DAILY No Action (DME) nebulizers [Aeroneb Go Nebulizer] Misc See Rx Instructions .Route Qty: 1 0RF Rx Instructions: As directed ipratropium-albuterol 0.5 mg-3 mg(2.5 mg base)/3 mL solution for nebulization 3 ml inhalation QID Qty: 180 1RF quetiapine 50 mg tablet 50 mg PO BEDTIME Qty: 90 3RF cholecalciferol (vitamin D3) [Vitamin D3] 50 mcg (2,000 unit) capsule 150 mcg PO BID Medication counseling provided by Pharmacist: No Follow up/Referrals: Ariella Boo DO [Primary Care Provider] - Discharge Health Status Multidrug resistant organism: No MDRO Diet/Activity/Treatments Diet: Regular Activity: As tolerated Skin/Wound/Dressing Care Report to your healthcare provider any signs of infection, such as:: chills, fever and night sweats Visit Report/Discharge Packet Instructions: DI for Chronic Obstructive Pulmonary Disease Stand Alone Forms: Patient Portal/API Discharge Data Primary Care Provider: Ariella Boo VTE Deep Vein Thrombosis/Pulmonary Embolism Present on Admission: No
[2024-08-07] MEDS: DOXYCYCLINE HYCLATE 100 MG TABLET PO (08:23)
--- NOTE | 2024-08-07 10:36 | PC.NURSE ---
Patient is A&OX3, VSS, afebrile on RA this a.m. 02 at 92 %. She reports feeling fatigued and SOB with exertion. She is able to tolerate breakfast well. She denies pain this a.m. She is cleared for discharge this a.m. and receives nebulizer treatment. She expresses understanding of meadications, activitiy as well as to notifiy provider of any worsening symptoms. She is discharged and escorted via w/ch for entrance with family member to make her appointment at 0940 with [place] rug setter this a.m. followed by appointment with her PCP Yolanda Boo. She has all of her personal belongings with her.
--- NOTE | 2024-08-07 10:49 | CM.DPC ---
DCP Cont. Reviewed EMR and team rounds for status updates. Pt has been medically cleared for home d/c. Placed a resumption of care for Home Health in the EMR, per pt's request in order to continue with [facility]. Dtr will transport home.
== END 2024-08-07 09:36 | disposition home health service (06) | DRG 190 ==
LOC: ED 14:39 → AC 14:50
PROVIDERS: Admitting Provider Hospitalist; Emergency Provider Student in an Organized Health Care Education/Training Program; PCP Family Medicine; Referring Provider Student in an Organized Health Care Education/Training Program; Visit Provider Hospitalist
DX: J44.1 Chronic obstructive pulmonary disease with (acute) exacerbation (principal); J96.01 Acute respiratory failure with hypoxia; E78.5 Hyperlipidemia, unspecified; R13.10 Dysphagia, unspecified; F32.A Depression, unspecified; F41.9 Anxiety disorder, unspecified; J98.4 Other disorders of lung; R32 Unspecified urinary incontinence
CPT/HCPCS: 0241U; 36415; 71045; 80048; 80053; 83605; 83735; 83880; 84484; 85025; 85610; 93005; 93010; 94640; 94760; 94762; 96365; 96375; 99285; J1644; J2919; J3475; J7613

== ENCOUNTER → 2024-10-31 11:31 | Outpatient (CLI) | payer MEDICARE, OTHER, SELFPAY ==
[2024-08-07 11:46] VITALS: BMI 33.3
--- NOTE | 2024-10-31 | DI.CT.S_ITS ---
PROCEDURE: CT CHEST WO CON INDICATIONS: UNDIFFERENTIATED PLEOMORPHIC SARCOMA TECHNIQUE: Noncontrast 5 mm thick sections acquired from the pulmonary apices to the posterior costophrenic angles. 1 mm lung window, 5 mm thick coronal and sagittal and 7 mm axial MIP reformats were then acquired. For radiation dose reduction, the following was used: automated exposure control, adjustment of mA and/or kV according to patient size. COMPARISON: [facility], CT, CT CHEST WO CON, 01/25/2024, 9:26. FINDINGS: Image quality: Diagnostic. Lower Neck: No enlarged lymph nodes. Thyroid: No thyroid nodules which require sonographic follow up, per consensus guidelines. Axillae: No enlarged lymph nodes. Chest Wall: Unremarkable. Bones: Severe bilateral glenohumeral joint osteoarthritis. Moderate to severe bilateral neural foraminal stenosis at L1-L2 and L2-L3. Lungs and Pleura: No pneumothorax or pleural effusions. No consolidation. Small 3 millimeter solid pulmonary nodules are noted at the apices and in the subpleural in juxtapleural upper and lower lobes. A solid 5 millimeter nodule is noted in the left lower lobe (series 3, image 167) and a 4 millimeter solid nodule in the right middle lobe (series 3, image 196). The largest solid nodule is seen in the right middle lobe measuring 5 millimeters, with spiculation in the right middle lobe (series 3, image 208). Heart: Heart size is normal. Trace pericardial effusion. Minimal LAD coronary artery calcification. Thoracic Vessels: The aorta and pulmonary arteries demonstrate normal size. Mediastinum and Obdulia: No enlarged lymph nodes. Esophagus: No wall thickening. No hiatal hernia. Upper Abdomen: Incidental note of a 2.5 centimeter simple cyst within the left lobe in hepatic segment 2. As well as a 1.7 centimeter subcapsular hepatic simple cyst in hepatic segment 7. Visualized upper abdomen solid organs and bowel loops appear normal. IMPRESSION: Numerous small apical and subpleural pulmonary nodules measuring up to 0.5 centimeters, the most prominent 1 in the right middle lobe with spiculation, unchanged in size since 9 months ago. Dictated by: Godwin Castanon M.D. on 10/31/2024 at 18:16 Approved by: Godwin Castanon M.D. on 10/31/2024 at 18:38
== END ==
PROVIDERS: PCP Family Medicine; Referring Provider Physician Assistant; Visit Provider Physician Assistant
DX: C49.9 Malignant neoplasm of connective and soft tissue, unspecified (principal); R91.8 Other nonspecific abnormal finding of lung field; K76.89 Other specified diseases of liver; M19.011 Primary osteoarthritis, right shoulder; M19.012 Primary osteoarthritis, left shoulder; M48.061 Spinal stenosis, lumbar region without neurogenic claudication
CPT/HCPCS: 71250

== ENCOUNTER → 2025-03-05 13:55 | Outpatient (CLI) | payer MEDICARE, OTHER, SELFPAY ==
[2025-03-05 09:00] VITALS: BMI 33.3
[2025-03-05 14:36] LABS: Add Manual Diff / Slide Review NO; Basophils Absolute Auto 100 /uL (0-100); Basophils Percent Auto 0.6 % (0-2); Eosinophils Absolute Auto 200 /uL (0-450); Hematocrit 40.7 % (36-46); Hemoglobin 13.8 g/dL (12.0-16.0); Lymphocytes Absolute Auto 1500 /uL (1100-4500); Mean Corpuscular HGB Conc 33.9 % (30-36); Mean Corpuscular Hemoglobin 30.3 PG (26-34); Mean Corpuscular Volume 89.3 fL (80-100); Monocytes Absolute Auto 800 /uL (0-900); Neutrophils Absolute Auto 6200 /uL (1500-7000); Neutrophils Percent Auto 71.4 % (50-75); Platelet Count 281 X10^3/uL (150-400); Red Blood Cell Count 4.55 X10^6/uL (4.0-5.2); Red Cell Distribution Width 13.3 % (11.6-14.8); White Blood Cell Count 8.7 X10^3/uL (4.5-11.0)
[2025-03-05 14:50] LABS: D Dimer 784 ng/ml (<500)
[2025-03-05 15:01] LABS: Alanine Aminotransferase 30 IU/L (<35); Albumin 4.7 g/dL (3.5-5.0); Albumin Globulin Ratio 2.1 (1.0-2.8); Alkaline Phosphatase 74 U/L (38-126); Aspartate Aminotransferase 33 IU/L (14-36); Bilirubin Total 0.4 mg/dL (0.2-1.3); Blood Urea Nitrogen 24 mg/dL (7-17); Calcium 10.2 mg/dL (8.4-10.2); Carbon Dioxide 28 mmol/L (22-32); Chloride 98 mmol/L (98-107); Estimated Glomerular Filt Rate > 60 mL/min (>60); Globulin 2.2 g/dL (1.7-4.1); Glucose 106 mg/dL (70-99); HEMOLYSIS < 15 (0-50); Potassium 4.6 mmol/L (3.4-5.1); Sodium 135 mmol/L (137-145); Total Protein 6.9 g/dL (6.3-8.2)
[2025-03-05 15:07] LABS: NT-proBNP (BNP-Adult 18+) 76 pg/mL (<450)
[2025-03-05 15:48] LABS: Vitamin B12 885 pg/mL (239-931)
== END ==
PROVIDERS: PCP Family Medicine; Referring Provider Physician Assistant; Visit Provider Physician Assistant
DX: R60.0 Localized edema (principal)
CPT/HCPCS: 36415; 80053; 82607; 83880; 85025; 85379

== ENCOUNTER 2025-03-11 15:36 | Emergency (ER) | payer MEDICARE, OTHER, SELFPAY ==
[2025-03-05 09:00] VITALS: BMI 33.3
[2025-03-11] VITALS (18 sets, daily range): BP systolic 128–182; BP diastolic 69–100; PULSE 79–96; RESP 15–26; TEMP 36.2; O2SAT 92–96; BMI 34.9
--- NOTE | 2025-03-11 17:08 | ED_ITS ---
HPI - Nausea/Vomiting/Diarrhea <Zaheer Serra, DO - Last Filed: 03/12/25 13:39> General Chief complaint: Nausea/Vomiting/Diarrhea Stated complaint: nausea, vomiting Time Seen by Provider: 03/11/25 17:08 Source: patient Mode of arrival: Wheelchair History of Present Illness HPI Narrative: 89-year-old female history of asthma dyslipidemia had COVID shot yesterday at [facility] and recently started on Lasix for leg swelling presents with 3 episodes of nonbilious nonbloody vomit and abdominal cramping today. He last had a bowel movement earlier today that was normal at 1:00 p.m. Patient denies fever, chills, body aches, sore throat, cough, chest pain, and shortness of breath. Other than what is stated 14 point review of system is negative. Related Data Home Medications Medication Instructions Recorded Confirmed vitamins A,C,J-ejbc-istmww 2,148 2 tab PO DAILY 08/26/20 03/11/25 mcg-113 mg-45 mg-17.4 mg tablet (PreserVision AREDS) biotin 500 mcg capsule 1 mg PO TID 08/05/24 03/11/25 cholecalciferol (vitamin D3) 50 150 mcg PO BID 08/07/24 03/11/25 mcg (2,000 unit) capsule (Vitamin D3) furosemide 20 mg tablet 20 mg PO QAM 03/11/25 03/11/25 Previous Rx's Medication Instructions Recorded Disabled Parking Permit #1 ea 02/21/22 lorazepam 0.5 mg tablet 0.25 mg (1/2 x 0.5 mg) PO BEDTIME 01/09/25 PRN Insomnia #14 tabs meloxicam 15 mg tablet 15 mg PO DAILY #90 tabs 01/09/25 olanzapine 2.5 mg tablet 2.5 mg PO DAILY #90 tabs 01/09/25 omeprazole 20 mg capsule,delayed 20 mg PO DAILY #90 caps 01/09/25 release quetiapine 50 mg tablet 50 mg PO BEDTIME #90 tabs 01/09/25 sertraline 100 mg tablet 150 mg (1.5 x 100 mg) PO DAILY 01/09/25 #135 tabs simvastatin 40 mg tablet 40 mg PO BEDTIME #90 tabs 01/09/25 tolterodine 4 mg capsule,extended 4 mg PO DAILY #90 caps 01/09/25 release 24 hr trazodone 50 mg tablet 25 mg (1/2 x 50 mg) PO BEDTIME PRN 01/09/25 insomnia #45 tabs furosemide 20 mg tablet (Lasix) 20 mg PO QAM #14 tabs 03/06/25 cefdinir 300 mg capsule 300 mg PO BID 7 days #14 caps 03/11/25 Allergies Allergy/AdvReac Type Severity Reaction Status Date / Time digoxin [DIGOXIN] Allergy Mild LIGHTHEADED Verified 03/05/25 13:20 latex [LATEX] Allergy Mild Verified 03/05/25 13:20 silver Allergy Mild BLISTERS Verified 03/05/25 13:20 (FROM TEGADERM MESH) sulfamethoxazole Allergy Mild Rash Verified 03/05/25 13:20 [From Bactrim] trimethoprim [From Bactrim] Allergy Mild Rash Verified 03/05/25 13:20 cephalexin AdvReac Nausea Verified 03/05/25 13:20 fluconazole AdvReac Nausea Verified 03/05/25 13:20 Patient History <Zaheer Serra, DO - Last Filed: 03/12/25 13:39> Medical History (Updated 03/11/25 @ 22:16 by Sg Tafoya MD) Asthma Acute exacerbation of chronic obstructive pulmonary disease (~07/2024) Fall Chronic prescription benzodiazepine use Pulmonary nodule less than 6 mm in diameter with low risk for malignant neoplasm (~07/2020) Peripheral neuropathy Bronchitis Abnormal LFTs Restrictive lung disease Dysphagia, pharyngeal phase Obesity (BMI 30-39.9) Urinary incontinence (2004) Foot pain, left (2009) Ankle pain, left (2009) Lumbar spinal stenosis Cataract (03/2014) Hyperlipidemia Hypothyroidism 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) Essential tremor (05/19/15) Urge incontinence of urine (05/14/15) Chronic lumbar radiculopathy (08/26/14) Chronic left shoulder pain (12/25/17) Relationship problem with family member Internal hemorrhoids (~08/2020) Feared complaint without diagnosis Allergy to sulfa drugs Tinnitus (~2014) Chicken pox Mumps (1966) Surgical History History of esophagogastroduodenoscopy (EGD) (~03/2016) Anesthesia H/O abdominal surgery (03/2007) History of vaginal surgery (~2008) History of partial knee replacement (2007) History of partial knee replacement (2003) History of hip replacement (2001) History of hip replacement (1996) Status post hysterectomy with oophorectomy (1969) Family History Father Heart disease Pulmonary embolism Grandmother Heart disease Heart attack Sister Cancer Melanoma Grandmother No problems noted. Mother Dementia Grandfather Pneumonia Grandfather Dementia Daughter Depression Social History marital status: details: 07/22/2007 number of children: 1 household members: none lives independently: Yes housing: condominium pets and animals: No occupational status: previously employed Smoking Status: Never smoker alcohol intake: current substance use type: does not use Smoking Status: Never smoker alcohol intake frequency: holidays/special occasions only Exam <Zaheer Serra, DO - Last Filed: 03/12/25 13:39> Narrative Exam Narrative: GENERAL: [89] year old patient appears stated age. Well-developed patient, in mild distress. HEAD: Atraumatic. Normocephalic. EYES: Pupils equal round and reactive. Extraocular motions intact. No scleral icterus. No injection or drainage. ENT: Nose without bleeding, purulent drainage. Throat without erythema, tonsillar hypertrophy or exudate. Airway patent. NECK: Trachea midline. Non tender CARDIOVASCULAR: Regular rate and rhythm without murmurs, gallops, or rubs. RESPIRATORY: Clear to auscultation. Breath sounds equal bilaterally. No wheezes, rales, or rhonchi. GASTROINTESTINAL: Abdomen soft, epigastric TTP but no r/r/g, nondistended. EXTREMITIES: No edema or joint tenderness. BACK: Nontender without deformity or crepitance. No flank tenderness. NEURO: AOx3. SKIN: No rash or erythema of visible areas Initial Vital Signs Initial Vital Signs: Vital Signs Temperature 97.2 F L 03/11/25 15:55 Pulse Rate 90 03/11/25 15:55 Respiratory Rate 15 03/11/25 15:55 Blood Pressure 145/71 H 03/11/25 15:55 Pulse Oximetry 95 03/11/25 15:55 Oxygen Delivery Method Room Air 03/11/25 15:55 <Sg Tafoya MD - Last Filed: 03/12/25 07:27> Initial Vital Signs Initial Vital Signs: Vital Signs Temperature 97.2 F L 03/11/25 15:55 Pulse Rate 90 03/11/25 15:55 Respiratory Rate 15 03/11/25 15:55 Blood Pressure 145/71 H 03/11/25 15:55 Pulse Oximetry 95 03/11/25 15:55 Oxygen Delivery Method Room Air 03/11/25 15:55 Course <Zaheer Serra DO - Last Filed: 03/12/25 13:39> Orders Ordered: Discontinued Medications Sodium Chloride (Normal Saline 0.9%) 1,000 mls @ 1,000 mls/hr IV BOLUS ONE Stop: 03/11/25 18:15 Last Infusion: 03/11/25 19:16 Dose: Infused Documented By: Admin: 03/11/25 17:26 Dose: 1,000 mls/hr Documented By: ALEJANDRINA Ceftriaxone Sodium 1,000 mg/ (Sodium Chloride) 100 mls @ 200 mls/hr IV NOW ONE Stop: 03/11/25 18:24 Last Infusion: 03/11/25 19:00 Dose: Infused Documented By: Admin: 03/11/25 18:40 Dose: 200 mls/hr Documented By: ALEJANDRINA Ondansetron HCl (Ondansetron 4 Mg/2 Ml Inj) 4 mg IV NOW ONE Stop: 03/11/25 17:17 Last Admin: 03/11/25 17:26 Dose: 4 mg Documented By: ALEJANDRINA Vital Signs Vital signs: Vital Signs - 8 hr 03/11/25 15:55 03/11/25 16:05 03/11/25 16:06 Temperature 97.2 F L Pulse Rate 90 91 H Respiratory Rate 15 Blood Pressure 145/71 H 162/79 H Pulse Oximetry 95 95 Oxygen Delivery Method Room Air 03/11/25 16:06 03/11/25 16:30 03/11/25 16:32 Temperature Pulse Rate 89 83 Respiratory Rate 25 H Blood Pressure 141/71 H Pulse Oximetry 94 95 Oxygen Delivery Method 03/11/25 16:32 03/11/25 17:00 03/11/25 17:00 Temperature Pulse Rate 84 83 Respiratory Rate 22 22 Blood Pressure 147/69 H Pulse Oximetry 93 93 Oxygen Delivery Method 03/11/25 17:40 03/11/25 18:00 03/11/25 18:30 Temperature Pulse Rate 96 H 84 81 Respiratory Rate 24 23 25 H Blood Pressure 147/69 H Pulse Oximetry 92 93 Oxygen Delivery Method 03/11/25 19:00 03/11/25 19:12 03/11/25 19:12 Temperature Pulse Rate 80 89 Respiratory Rate 20 Blood Pressure 182/81 H Pulse Oximetry 93 93 Oxygen Delivery Method 03/11/25 19:30 03/11/25 19:31 03/11/25 19:31 Temperature Pulse Rate 84 87 Respiratory Rate Blood Pressure 155/92 H Pulse Oximetry 93 95 Oxygen Delivery Method 03/11/25 20:00 03/11/25 20:00 03/11/25 20:32 Temperature Pulse Rate 83 Respiratory Rate 18 Blood Pressure 142/72 H 161/78 H Pulse Oximetry 95 Oxygen Delivery Method 03/11/25 20:32 03/11/25 21:00 03/11/25 21:00 Temperature Pulse Rate 92 H 84 Respiratory Rate 26 H Blood Pressure 138/100 H Pulse Oximetry 93 95 Oxygen Delivery Method 03/11/25 21:30 03/11/25 21:30 03/11/25 22:00 Temperature Pulse Rate 81 79 Respiratory Rate 18 22 Blood Pressure 128/94 H Pulse Oximetry 96 95 Oxygen Delivery Method 03/11/25 22:00 Temperature Pulse Rate Respiratory Rate Blood Pressure 128/75 Pulse Oximetry Oxygen Delivery Method <Sg Tafoya MD - Last Filed: 03/12/25 07:27> Orders Ordered: Discontinued Medications Sodium Chloride (Normal Saline 0.9%) 1,000 mls @ 1,000 mls/hr IV BOLUS ONE Stop: 03/11/25 18:15 Last Infusion: 03/11/25 19:16 Dose: Infused Documented By: Admin: 03/11/25 17:26 Dose: 1,000 mls/hr Documented By: ALEJANDRINA Ceftriaxone Sodium 1,000 mg/ (Sodium Chloride) 100 mls @ 200 mls/hr IV NOW ONE Stop: 03/11/25 18:24 Last Infusion: 03/11/25 19:00 Dose: Infused Documented By: Admin: 03/11/25 18:40 Dose: 200 mls/hr Documented By: ALEJANDRINA Ondansetron HCl (Ondansetron 4 Mg/2 Ml Inj) 4 mg IV NOW ONE Stop: 03/11/25 17:17 Last Admin: 03/11/25 17:26 Dose: 4 mg Documented By: ALEJANDRINA Vital Signs Vital signs: Vital Signs - 8 hr 03/11/25 15:55 03/11/25 16:05 03/11/25 16:06 Temperature 97.2 F L Pulse Rate 90 91 H Respiratory Rate 15 Blood Pressure 145/71 H 162/79 H Pulse Oximetry 95 95 Oxygen Delivery Method Room Air 03/11/25 16:06 03/11/25 16:30 03/11/25 16:32 Temperature Pulse Rate 89 83 Respiratory Rate 25 H Blood Pressure 141/71 H Pulse Oximetry 94 95 Oxygen Delivery Method 03/11/25 16:32 03/11/25 17:00 03/11/25 17:00 Temperature Pulse Rate 84 83 Respiratory Rate 22 22 Blood Pressure 147/69 H Pulse Oximetry 93 93 Oxygen Delivery Method 03/11/25 17:40 03/11/25 18:00 03/11/25 18:30 Temperature Pulse Rate 96 H 84 81 Respiratory Rate 24 23 25 H Blood Pressure 147/69 H Pulse Oximetry 92 93 Oxygen Delivery Method 03/11/25 19:00 03/11/25 19:12 03/11/25 19:12 Temperature Pulse Rate 80 89 Respiratory Rate 20 Blood Pressure 182/81 H Pulse Oximetry 93 93 Oxygen Delivery Method 03/11/25 19:30 03/11/25 19:31 03/11/25 19:31 Temperature Pulse Rate 84 87 Respiratory Rate Blood Pressure 155/92 H Pulse Oximetry 93 95 Oxygen Delivery Method 03/11/25 20:00 03/11/25 20:00 03/11/25 20:32 Temperature Pulse Rate 83 Respiratory Rate 18 Blood Pressure 142/72 H 161/78 H Pulse Oximetry 95 Oxygen Delivery Method 03/11/25 20:32 03/11/25 21:00 03/11/25 21:00 Temperature Pulse Rate 92 H 84 Respiratory Rate 26 H Blood Pressure 138/100 H Pulse Oximetry 93 95 Oxygen Delivery Method 03/11/25 21:30 03/11/25 21:30 03/11/25 22:00 Temperature Pulse Rate 81 79 Respiratory Rate 18 22 Blood Pressure 128/94 H Pulse Oximetry 96 95 Oxygen Delivery Method 03/11/25 22:00 Temperature Pulse Rate Respiratory Rate Blood Pressure 128/75 Pulse Oximetry Oxygen Delivery Method MDM - Nausea/Vomiting/Diarrhea <Zaheer Serra, DO - Last Filed: 03/12/25 13:39> Lab Data 03/11/25 16:21 03/11/25 16:21 Labs: Lab Results 03/11/25 03/11/25 Range/Units 16:21 17:30 WBC 6.7 (4.5-11.0) X10^3/uL RBC 4.56 (4.0-5.2) X10^6/uL Hgb 13.8 (12.0-16.0) g/dL Hct 40.5 (36-46) % MCV 88.9 (80-100) fL MCH 30.3 (26-34) PG MCHC 34.1 (30-36) % RDW 13.2 (11.6-14.8) % Plt Count 242 (150-400) X10^3/uL Neut % (Auto) 79.0 H (50-75) % Lymph % (Auto) 11.7 L (25-40) % [place] % (Auto) 7.1 (3-14) % Eos % (Auto) 1.2 L (2-4) % Baso % (Auto) 1.0 (0-2) % Neut # (Auto) 5300 (5801-7883) /uL Lymph # (Auto) 800 L (4220-6659) /uL [place] # (Auto) 500 (0-900) /uL Eos # (Auto) 100 (0-450) /uL Baso # (Auto) 100 (0-100) /uL Sodium 136 L (137-145) mmol/L Potassium 4.4 (3.4-5.1) mmol/L Chloride 96 L (98-107) mmol/L Carbon Dioxide 34 H (22-32) mmol/L BUN 20 H (7-17) mg/dL Creatinine 0.71 (0.52-1.04) mg/dL Estimated GFR > 60 (>60) mL/min BUN/Creatinine Ratio 28.2 H (6-22) Glucose 124 H (70-99) mg/dL Calcium 9.9 (8.4-10.2) mg/dL Total Bilirubin 0.3 (0.2-1.3) mg/dL AST 34 (14-36) IU/L ALT 28 (<35) IU/L Alkaline Phosphatase 77 (38-126) U/L Total Protein 7.2 (6.3-8.2) g/dL Albumin 4.6 (3.5-5.0) g/dL Globulin 2.6 (1.7-4.1) g/dL Albumin/Globulin Ratio 1.8 (1.0-2.8) Urine Color Yellow Urine Appearance Sl cloudy Urine pH 7.0 (4.5-8.0) Ur Specific [place] 1.010 (1.000-1.035) Urine Protein Negative (Negative) Urine Glucose (UA) Negative (Negative) g/dL Urine Ketones Negative (NEGATIVE) Urine Occult Blood Negative (Negative) Urine Nitrate Negative (Negative) Urine Bilirubin Negative (NEGATIVE) Urine Urobilinogen 0.2 (0.2) E.U./dL Ur Leukocyte Esterase 3+ H (NEGATIVE) Urine RBC 0-1/hpf (0-5/HPF) Urine WBC 30-100/hpf H (0-5/HPF) Ur Squamous Epith Cells 0-1 /hpf (0-5/HPF) Urine Bacteria Many (>30) H (None) Ur Culture Indicated? Specimen cultured Vol Urine Centrifuged 10ml (spun) MDM Narrative Medical decision making narrative: All lab work vital signs nurse triage note medication list and previous visits all reviewed pending CT scan. Case signed out to Dr. Tafoya at shift change pending final disposition. Differential diagnosis includes viral gastroenteritis, dehydration, electrolyte derangement, small-bowel obstruction, constipation. <Sg Tafoya MD - Last Filed: 03/12/25 07:27> Lab Data Attestation: I reviewed the patient's lab results. Lab results narrative: White blood cell count 6700, hemoglobin 13.8, platelets adequate. BUN 20 with creatinine 0.71. Glucose 121. Sodium 136, potassium 4.4, serum CO2 34. Liver functions unremarkable. Urinalysis suspicious for infection. Urine culture requested. Labs: Lab Results 03/11/25 03/11/25 Range/Units 16:21 17:30 WBC 6.7 (4.5-11.0) X10^3/uL RBC 4.56 (4.0-5.2) X10^6/uL Hgb 13.8 (12.0-16.0) g/dL Hct 40.5 (36-46) % MCV 88.9 (80-100) fL MCH 30.3 (26-34) PG MCHC 34.1 (30-36) % RDW 13.2 (11.6-14.8) % Plt Count 242 (150-400) X10^3/uL Neut % (Auto) 79.0 H (50-75) % Lymph % (Auto) 11.7 L (25-40) % [place] % (Auto) 7.1 (3-14) % Eos % (Auto) 1.2 L (2-4) % Baso % (Auto) 1.0 (0-2) % Neut # (Auto) 5300 (3030-5664) /uL Lymph # (Auto) 800 L (3231-1891) /uL [place] # (Auto) 500 (0-900) /uL Eos # (Auto) 100 (0-450) /uL Baso # (Auto) 100 (0-100) /uL Sodium 136 L (137-145) mmol/L Potassium 4.4 (3.4-5.1) mmol/L Chloride 96 L (98-107) mmol/L Carbon Dioxide 34 H (22-32) mmol/L BUN 20 H (7-17) mg/dL Creatinine 0.71 (0.52-1.04) mg/dL Estimated GFR > 60 (>60) mL/min BUN/Creatinine Ratio 28.2 H (6-22) Glucose 124 H (70-99) mg/dL Calcium 9.9 (8.4-10.2) mg/dL Total Bilirubin 0.3 (0.2-1.3) mg/dL AST 34 (14-36) IU/L ALT 28 (<35) IU/L Alkaline Phosphatase 77 (38-126) U/L Total Protein 7.2 (6.3-8.2) g/dL Albumin 4.6 (3.5-5.0) g/dL Globulin 2.6 (1.7-4.1) g/dL Albumin/Globulin Ratio 1.8 (1.0-2.8) Urine Color Yellow Urine Appearance Sl cloudy Urine pH 7.0 (4.5-8.0) Ur Specific [place] 1.010 (1.000-1.035) Urine Protein Negative (Negative) Urine Glucose (UA) Negative (Negative) g/dL Urine Ketones Negative (NEGATIVE) Urine Occult Blood Negative (Negative) Urine Nitrate Negative (Negative) Urine Bilirubin Negative (NEGATIVE) Urine Urobilinogen 0.2 (0.2) E.U./dL Ur Leukocyte Esterase 3+ H (NEGATIVE) Urine RBC 0-1/hpf (0-5/HPF) Urine WBC 30-100/hpf H (0-5/HPF) Ur Squamous Epith Cells 0-1 /hpf (0-5/HPF) Urine Bacteria Many (>30) H (None) Ur Culture Indicated? Specimen cultured Vol Urine Centrifuged 10ml (spun) MDM Narrative Medical decision making narrative: All lab work vital signs nurse triage note medication list and previous visits all reviewed pending CT scan. Case signed out to Dr. Tafoya at shift change pending final disposition. Differential diagnosis includes viral gastroenteritis, dehydration, electrolyte derangement, small-bowel obstruction, constipation. 03/11/25, Michelet Buckley. Sign-out from Dr Guardado. 89-year-old with abdominal cramping, nonbilious nonbloody emesis. Screening labs showed urinalysis suspicious for infection. IV ceftriaxone given for possible urinary tract infection. CT abdomen and pelvis ordered. Results are pending at this time. Assumed care. CT abdomen and pelvis with IV contrast. Impressions: ?No acute inflammatory process identified in the abdomen or pelvis. Moderate to large volume colonic stool. Cholelithiasis.? See radiology report. Urinalysis was suspicious for infection, IV ceftriaxone given prior. CT shows colonic stool but no acute changes. Trial of MiraLax. Trial of antibiotics for UTI. Antibiotics sent to her pharmacy. Discharged home with family. Return precautions discussed. Discharge Plan Departure Patient Disposition: Home Clinical Impression: Urinary tract infection, Constipation Activity Restrictions/Additional Instructions: Abdominal cramping with screening labs suspicious for urine infection. CT abdomen and pelvis showed no definite acute changes per Radiology reading. Possible urinary infection. You did have a lot of constipation like changes on your CT scan which could be causing some discomfort. An you might just happened to have a bladder infection. We will use antibiotics for treatment of bladder infection. Consider MiraLax for constipation treatment if this might be a cause of some abdominal cramping. IV antibiotics ceftriaxone given in the emergency department. Further antibiotics prescription sent to your pharmacy. Take antibiotics as directed. Drink plenty of fluids. Recheck symptoms with your regular doctor if not improving in the next 2-3 days. Return to this/nearest emergency department for any change worsening symptoms or any concerns prior. Prescriptions: New cefdinir 300 mg capsule 300 mg PO BID 7 Days Qty: 14 0RF No Action (DME) Disabled Parking Permit See Rx Instructions .ROUTE .MEDSUPPLY Qty: 1 0RF Rx Instructions: Valid for 5 years furosemide [Lasix] 20 mg tablet 20 mg PO QAM Qty: 14 0RF meloxicam 15 mg tablet 15 mg PO DAILY Qty: 90 1RF omeprazole 20 mg capsule,delayed release(DR/EC) 20 mg PO DAILY Qty: 90 1RF olanzapine 2.5 mg tablet 2.5 mg PO DAILY Qty: 90 1RF quetiapine 50 mg tablet 50 mg PO BEDTIME Qty: 90 3RF simvastatin 40 mg tablet 40 mg PO BEDTIME Qty: 90 3RF tolterodine 4 mg capsule,extended release 24hr 4 mg PO DAILY Qty: 90 1RF sertraline 100 mg tablet 150 mg PO DAILY Qty: 135 0RF lorazepam 0.5 mg tablet 0.25 mg PO BEDTIME PRN (Reason: Insomnia) Qty: 14 1RF trazodone 50 mg tablet 25 mg PO BEDTIME PRN (Reason: insomnia) Qty: 45 1RF PreserVision AREDS [id number] [id number] Tablet 2 tab PO DAILY biotin 500 mcg Capsule 1 mg PO TID cholecalciferol (vitamin D3) [Vitamin D3] 50 mcg (2,000 unit) capsule 150 mcg PO BID furosemide 20 mg tablet 20 mg PO QAM Referrals: Ariella Boo DO [Primary Care Provider] - Stand Alone Forms: Patient Portal/API/Survey
--- NOTE | 2025-03-11 17:16 | DI.CT.S_ITS ---
PROCEDURE: CT ABDOMEN PELVIS W CON INDICATIONS: abd cramp n/v TECHNIQUE: After the administration of intravenous contrast, axial sections acquired from the lung bases to the pubic symphysis. Coronal and sagittal reformats were performed. For radiation dose reduction, the following was used: automated exposure control, adjustment of mA and/or kV according to patient size. COMPARISON: [facility], CT, CT ABDOMEN PELVIS W CON, 11/10/2022, 17:40. [facility], CT, ABDOMEN/PELVIS WITH CONTRAST, 10/14/2015, 11:08. FINDINGS: Image quality: Diagnostic. Lower Chest: No significant findings. ABDOMEN: Liver: No solid mass. Stable left hepatic cyst. Subtle nodularity of the liver surface. Gallbladder: Calcified gallstones are noted without acute inflammatory changes. Biliary ducts: No biliary dilation. Pancreas: No ductal dilation. Spleen: Size is within normal limits. Adrenal Glands: No adrenal nodules. Kidneys and Ureters: No hydronephrosis. No solid mass. No complex renal cystic lesion which requires follow up. Fluid attenuation lesion in the left kidney is consistent with a cyst. Stomach and Bowel: Moderate to large volume of colonic stool. Small bowel loops are nondilated. Moderate fluid distention of the stomach. Peritoneum: No abnormal intraperitoneal fluid. No free air. Ventral Wall: Small fat containing periumbilical hernia. Abdominal Nodes: No retroperitoneal or mesenteric adenopathy by size criteria. Vessels: Aorta and inferior vena cava are normal in size. PELVIS: Pelvic Organs: Status post hysterectomy. Bladder: No bladder wall thickening, accounting for underdistention. Pelvic Nodes: No enlarged lymph nodes. Miscellaneous: No inguinal hernias are seen. Bones: No aggressive osseous abnormality. Bilateral total hip arthroplasties with associated streak artifact that mildly obscures pelvic contents. Degenerative changes are seen in the included spine with mild dextroconvex curvature. IMPRESSION: 1. No acute inflammatory process identified in the abdomen or pelvis. 2. Moderate to large volume of colonic stool. 3. Cholelithiasis. Approved by: Beto Christianson M.D. on 03/11/2025 at 18:07
[2025-03-11 17:26] LABS: Add Manual Diff / Slide Review NO; Basophils Absolute Auto 100 /uL (0-100); Eosinophils Absolute Auto 100 /uL (0-450); Eosinophils Percent Auto 1.2 % (2-4); Hematocrit 40.5 % (36-46); Hemoglobin 13.8 g/dL (12.0-16.0); Lymphocytes Absolute Auto 800 /uL (1100-4500); Lymphocytes Percent Auto 11.7 % (25-40); Mean Corpuscular HGB Conc 34.1 % (30-36); Mean Corpuscular Hemoglobin 30.3 PG (26-34); Mean Corpuscular Volume 88.9 fL (80-100); Monocytes Absolute Auto 500 /uL (0-900); Monocytes Percent Auto 7.1 % (3-14); Neutrophils Absolute Auto 5300 /uL (1500-7000); Platelet Count 242 X10^3/uL (150-400); Red Blood Cell Count 4.56 X10^6/uL (4.0-5.2); Red Cell Distribution Width 13.2 % (11.6-14.8); White Blood Cell Count 6.7 X10^3/uL (4.5-11.0)
[2025-03-11] MEDS: ONDANSETRON 4 MG/2 ML INJ IV (17:26)
[2025-03-11] MEDS: SODIUM CHLORIDE 0.9% 1,000 ML 1000 ML IV (17:26)
[2025-03-11 17:30] LABS: Alanine Aminotransferase 28 IU/L (<35); Albumin 4.6 g/dL (3.5-5.0); Albumin Globulin Ratio 1.8 (1.0-2.8); Alkaline Phosphatase 77 U/L (38-126); Aspartate Aminotransferase 34 IU/L (14-36); BUN Creatinine Ratio 28.2 (6-22); Bilirubin Total 0.3 mg/dL (0.2-1.3); Blood Urea Nitrogen 20 mg/dL (7-17); Calcium 9.9 mg/dL (8.4-10.2); Carbon Dioxide 34 mmol/L (22-32); Chloride 96 mmol/L (98-107); Estimated Glomerular Filt Rate > 60 mL/min (>60); Globulin 2.6 g/dL (1.7-4.1); Glucose 124 mg/dL (70-99); HEMOLYSIS 20 (0-50); Potassium 4.4 mmol/L (3.4-5.1); Sodium 136 mmol/L (137-145); Total Protein 7.2 g/dL (6.3-8.2)
[2025-03-11 17:44] LABS: Appearance Urine UA SL CLOUDY; Bilirubin Urine UA NEGATIVE (NEGATIVE); Color Urine UA YELLOW; Glucose Urine UA NEGATIVE (Negative); Ketones Urine UA NEGATIVE (NEGATIVE); Leukocyte Esterase Urine UA 3+ (NEGATIVE); Nitrite Urine UA NEGATIVE (Negative); Occult Blood Urine UA NEGATIVE (Negative); Protein Urine UA NEGATIVE (Negative); Urobilinogen Urine UA 0.2 E.U./dL (0.2)
[2025-03-11 17:50] LABS: Bacteria Urine Many (>30); Culture Indicated Urine Specimen Cultured; RBC Urine 0-1/HPF (0-5/HPF); Squamous Epithelial Cell Urine 0-1 /HPF (0-5/HPF); Urine Volume 10mL (spun); WBC Urine 30-100/HPF (0-5/HPF)
[2025-03-11] MEDS: cefTRIAXone 1,000 MG in SODIUM CHLORIDE 0.9% 100 ML 200 MG IV (18:40)
== END 2025-03-11 22:38 | disposition home or self-care (01) ==
PROVIDERS: Family Medicine; Emergency Provider Emergency Medicine; PCP Family Medicine
DX: N39.0 Urinary tract infection, site not specified (principal); K59.00 Constipation, unspecified; R11.10 Vomiting, unspecified
CPT/HCPCS: 36415; 74177; 80053; 81001; 85025; 87077; 87086; 87186; 96361; 96365; 96375; 99284; J0696; J2405; Q9967

== ENCOUNTER → 2025-04-04 10:28 | Outpatient (CLI) | payer MEDICARE, OTHER, SELFPAY ==
[2025-03-05 09:00] VITALS: BMI 33.3
== END ==
PROVIDERS: PCP Family Medicine; Visit Provider Nurse Practitioner Family
DX: R30.0 Dysuria (principal); N39.0 Urinary tract infection, site not specified
CPT/HCPCS: 81002; 87077; 87086; 87186

== ENCOUNTER → 2025-04-08 16:56 | Outpatient (CLI) | payer MEDICARE, OTHER, SELFPAY ==
[2025-03-05 09:00] VITALS: BMI 33.3
== END ==
PROVIDERS: PCP Family Medicine; Visit Provider Family Medicine
DX: N30.01 Acute cystitis with hematuria (principal); J44.9 Chronic obstructive pulmonary disease, unspecified; Z68.38 Body mass index [BMI] 38.0-38.9, adult
CPT/HCPCS: 81002; 87077; 87086; 87186

== ENCOUNTER 2025-04-09 12:11 | Observation (INO) | payer MEDICARE, OTHER, SELFPAY ==
[2025-03-05 09:00] VITALS: BMI 33.3
[2025-04-09] VITALS (19 sets, daily range): BP systolic 96–133; BP diastolic 44–65; PULSE 72–105; RESP 16–40; TEMP 36.4–36.9; O2SAT 91–94; BMI 38.2
--- NOTE | 2025-04-09 12:26 | DI.RAD.S_ITS ---
PROCEDURE: XR CHEST 1V INDICATIONS: Shortness of breath TECHNIQUE: One view of the chest was acquired. COMPARISON: [facility], CT, CT CHEST WO CON, 10/31/2024, 11:34. [facility], CT, CT CHEST ABD PEL W CON, 04/09/2025, 13:30. [facility], CR, XR CHEST 1V, 08/05/2024, 13:05. FINDINGS: Surgical changes and devices: None. Lungs and pleura: Bilateral interstitial prominence. Haziness at the left costophrenic angle may be secondary to effusion or prominent epicardial fat pad. Mediastinum: Mediastinal contours appear normal. Heart size is normal. Bones and chest wall: No suspicious bony lesions. Overlying soft tissues appear unremarkable. IMPRESSION: Bilateral interstitial prominence is suspicious for mild pulmonary edema. Approved by: Beto Christianson M.D. on 04/09/2025 at 13:28
--- NOTE | 2025-04-09 12:26 | EKG_ITS ---
[address] [address] Test Date: 2025-04-09 Pat Name: Petty Christy Department: Room: Gender: Female [employer]: SILVANO : 1935 Requested By: Order Number: [id number] Reading MD: Haile Vargas Measurements Intervals [place] Rate: 100 P: 20 WV: 160 QRS: -14 QRSD: 112 T: 13 QT: 364 QTc: 469 Interpretive Statements Normal sinus rhythm Right bundle branch block Electronically Signed On 04-09-2025 17:48:33 PDT by Haile Vargas
[2025-04-09] MEDS: ALBUTEROL 2.5 MG/3 ML NEB (ADULT) INH (12:51)
[2025-04-09 13:05] LABS: Add Manual Diff / Slide Review NO; Basophils Absolute Auto 100 /uL (0-100); Basophils Percent Auto 0.4 % (0-2); Eosinophils Absolute Auto 0 /uL (0-450); Eosinophils Percent Auto 0.1 % (2-4); Hematocrit 36.4 % (36-46); Hemoglobin 12.5 g/dL (12.0-16.0); Lymphocytes Absolute Auto 300 /uL (1100-4500); Lymphocytes Percent Auto 2.1 % (25-40); Mean Corpuscular HGB Conc 34.3 % (30-36); Mean Corpuscular Hemoglobin 30.6 PG (26-34); Mean Corpuscular Volume 89.1 fL (80-100); Monocytes Absolute Auto 1700 /uL (0-900); Monocytes Percent Auto 10.2 % (3-14); Neutrophils Absolute Auto 14400 /uL (1500-7000); Neutrophils Percent Auto 87.2 % (50-75); Platelet Count 238 X10^3/uL (150-400); Red Blood Cell Count 4.09 X10^6/uL (4.0-5.2); Red Cell Distribution Width 12.8 % (11.6-14.8); White Blood Cell Count 16.6 X10^3/uL (4.5-11.0)
[2025-04-09 13:10] LABS: INR 1.1 (0.9-1.3); Prothrombin Time 12.8 SECONDS (9.4-12.5)
--- NOTE | 2025-04-09 13:10 | ED_ITS ---
HPI - Abdominal Pain General Chief Complaint: Shortness of Breath/Dyspnea Stated Complaint: uti, SOB abd pain Time Seen by Provider: 04/09/25 12:51 History of Present Illness HPI narrative: Patient here for suprapubic burning sensation this morning that has improved. Patient is being treated for UTI by Dr. Boo, primary care for the past 1 week. Patient states her shortness of breath is not not not new. She has COPD/asthma. She is not here for that. Patient did have nausea and vomiting this morning but that has improved. Patient in no distress at this time. No hematuria. No chest pain no palpitations no back pain. Related Data Home Medications ?Medication ?Instructions ?Recorded ?Confirmed vitamins A,C,K-fzzu-tcqauq 2,148 2 tab PO DAILY 04/14/25 mcg-113 mg-45 mg-17.4 mg tablet (PreserVision AREDS) cholecalciferol (vitamin D3) 50 150 mcg PO BID 4 04/14/25 mcg (2,000 unit) capsule (Vitamin D3) biotin 500 mcg capsule 1 mg PO BID 04/14/25 5 Previous Rx's ?Medication ?Instructions ?Recorded Disabled Parking Permit #1 ea 02/21/22 lorazepam 0.5 mg tablet 0.25 mg (1/2 x 0.5 mg) PO BE DTIME 01/09/25 PRN Insomnia #14 tabs meloxicam 15 mg tablet 15 mg PO DAILY #90 tabs 12/15 06/06 olanzapine 2.5 mg tablet 2.5 mg PO DAILY #90 tabs omeprazole 20 mg capsule,delayed 20 mg PO DAILY #90 ca ps 01/09/25 release quetiapine 50 mg tablet 50 mg PO BEDTIME #90 tabs simvastatin 40 mg tablet 40 mg PO BEDTIME #90 tabs tolterodine 4 mg capsule,extended 4 mg PO DAILY #90 ca ps 01/09/25 release 24 hr trazodone 50 mg tablet 25 mg (1/2 x 50 mg) PO BEDTI ME PRN 01/09/25 insomnia #45 tabs furosemide 20 mg tablet (Lasix) 20 mg PO QAM #30 tabs 03/17/25 albuterol sulfate 90 mcg/actuation 2 puff inhalation Q 4-6H PRN 04/08/25 aerosol inhaler shortness of breath or wheez ing #18 grams budesonide-formoterol HFA 80 2 puff inhalation BID #10 .2 grams 04/08/25 mcg-4.5 mcg/actuation aerosol inhaler (Symbicort) ipratropium 0.5 mg-albuterol 3 mg 3 ml inhalation QID #180 mL 04/08/25 (2.5 mg base)/3 mL nebulization soln sertraline 100 mg tablet See Rx Instructions .Route 0 04/10/25 .COMPLEX #135 tabs Allergies Allergy/AdvReac Type Severity Reaction Status Date / Time digoxin (DIGOXIN) Allergy Mild LIGHTHEADED Verified 04/04/25 10:23 latex (LATEX) Allergy Mild Verified 04/04/25 10:23 silver Allergy Mild BLISTERS Verified 04/04/25 10:23 (FROM TEGADERM MESH) sulfamethoxazole (From Allergy Mild Rash Verified 04/04/25 10:23 Bactrim) trimethoprim (From Bactrim) Allergy Mild Rash Verified 04/04/25 10:23 cephalexin AdvReac Nausea Verified 04/04/25 10:23 fluconazole AdvReac Nausea Verified 04/04/25 10:23 Review of Systems Review of Systems Narrative: GENERAL: Negative chills, fatigue, malaise, fever, sweats. HEENT: Negative sinus pain, ear pain, sore throat RESPIRATORY: Negative dyspnea, cough CARDIOVASCULAR: Negative chest pain, palpitations GASTROINTESTINAL: Positive vomiting, nausea, abdominal pain : Negative dysuria, frequency, hematuria MUSCULOSKELETAL: Negative muscle or bony pain SKIN: Negative rash, skin lesions NEUROLOGIC: Negative weakness, numbness ROS Unobtainable: All systems reviewed & are unremarkable except as noted in HPI and below Patient History Medical History (Updated 04/09/25 @ 17:11 by Tal Larios MD) Asthma Acute exacerbation of chronic obstructive pulmonary disease (~07/2024) Fall Chronic prescription benzodiazepine use Pulmonary nodule less than 6 mm in diameter with low risk for malignant neoplasm (~07/2020) Peripheral neuropathy Bronchitis Abnormal LFTs Restrictive lung disease Dysphagia, pharyngeal phase Obesity (BMI 30-39.9) Urinary incontinence (2004) Foot pain, left (2009) Ankle pain, left (2009) Lumbar spinal stenosis Cataract (03/2014) Hyperlipidemia Hypothyroidism 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) Essential tremor (05/19/15) Urge incontinence of urine (05/14/15) Chronic lumbar radiculopathy (08/26/14) Chronic left shoulder pain (12/25/17) Relationship problem with family member Internal hemorrhoids (~08/2020) Feared complaint without diagnosis Allergy to sulfa drugs Tinnitus (~2014) Chicken pox Mumps (1966) Surgical History History of esophagogastroduodenoscopy (EGD) (~03/2016) Anesthesia H/O abdominal surgery (03/2007) History of vaginal surgery (~2008) History of partial knee replacement (2007) History of partial knee replacement (2003) History of hip replacement (2001) History of hip replacement (1996) Status post hysterectomy with oophorectomy (1969) Family History Father Heart disease Pulmonary embolism Grandmother Heart disease Heart attack Sister Cancer Melanoma Grandmother No problems noted. Mother Dementia Grandfather Pneumonia Grandfather Dementia Daughter Depression Social History marital status: details: 07/22/2007 number of children: 1 household members: none lives independently: [facility] pets and animals: No occupational status: previously employed alcohol intake: never substance use type: does not use Smoking Status: Never smoker alcohol intake frequency: holidays/special occasions only Exam Narrative Exam Narrative: GENERAL: in no distress, not toxic not dyspneic HEAD: Normocephalic. EYES: Pupils equal round ENT: Mucous membranes moist. NECK: Trachea midline. CARDIOVASCULAR: Regular rate and rhythm RESPIRATORY: Clear to auscultation. Breath sounds equal bilaterally. No wheezes, rales, or rhonchi. GASTROINTESTINAL: Abdomen soft, Mild suprapubic tenderness. No guarding no rebound no peritoneal signs bowel sounds are present EXTREMITIES: No gross deformities. BACK: No flank tenderness. NEURO: AOx4. Clear speech SKIN: Warm and dry PSYCH: Not anxious, is cooperative Initial Vital Signs Initial Vital Signs: Vital Signs Temperature 98.5 F 04/09/25 12:15 Pulse Rate 105 H 04/09/25 12:15 Respiratory Rate 26 H 04/09/25 12:15 Blood Pressure 118/60 04/09/25 12:15 Pulse Oximetry 92 04/09/25 12:15 Oxygen Delivery Method Room Air 04/09/25 12:15 Course Orders Ordered: Discontinued Medications Acetaminophen (Acetaminophen 325 Mg Tablet) 650 mg PO Q6H PRN PRN Reason: Fever/Mild Pain (1-3) Albuterol (Albuterol 2.5 Mg/3 Ml Neb (Adult)) 2.5 mg INH NOW ONE Stop: 04/09/25 12:51 Last Admin: 04/09/25 12:51 Dose: 2.5 mg Documented By: SAT Albuterol (Albuterol 2.5 Mg/3 Ml Neb (Adult)) 2.5 mg INH [id number] PRN PRN Reason: Shortness Of Breath Or Wheezing Last Admin: 04/10/25 09:58 Dose: 2.5 mg Documented By: FABBY Budesonide (Budesonide 0.5 Mg/2 Ml Neb) 0.5 mg INH RTBID [facility] Last Admin: 04/10/25 09:49 Dose: 0.5 mg Documented By: Admin: 04/09/25 20:58 Dose: 0.5 mg Documented By: Furosemide (Furosemide 20 Mg Tablet) 20 mg PO DAILY [facility] Last Admin: 04/10/25 09:20 Dose: 20 mg Documented By: STEVEN Heparin Sodium (Porcine) (Heparin 5,000 Unit/Ml Vial) 5,000 unit SUBCUT BID [facility] Last Admin: 04/10/25 09:20 Dose: 5,000 unit Documented By: Admin: 04/09/25 21:11 Dose: 5,000 unit Documented By: MS Ciprofloxacin (Cipro) 400 mg in 200 mls @ 200 mls/hr IV NOW ONE Stop: 04/09/25 14:55 Last Infusion: 04/09/25 15:21 Dose: Infused Documented By: Admin: 04/09/25 14:08 Dose: 200 mls/hr Documented By: ES Sodium Chloride (Normal Saline 0.9%) 500 mls @ 1,000 mls/hr IV BOLUS ONE Stop: 04/09/25 14:28 Last Infusion: 04/09/25 14:55 Dose: Infused Documented By: Admin: 04/09/25 14:01 Dose: 1,000 mls/hr Documented By: RB Sodium Chloride (Normal Saline 0.45%) 1,000 mls @ 100 mls/hr IV CONT [facility] Last Infusion: 04/09/25 18:42 Dose: 0 mls/hr Documented By: Admin: 04/09/25 17:47 Dose: 100 mls/hr Documented By: ES Ceftriaxone Sodium 1,000 mg/ (Sodium Chloride) 100 mls @ 200 mls/hr IV Q24H [facility] Last Admin: 04/09/25 17:46 Dose: 200 mls/hr Documented By: ES Lorazepam (Lorazepam 0.5 Mg Tablet) 0.5 mg PO BEDTIME PRN PRN Reason: Sleep Last Admin: 04/09/25 22:38 Dose: 0.5 mg Documented By: MS Naloxone HCl (Naloxone 0.4 Mg/Ml Vial) 0.2 mg IV Q2MIN PRN PRN Reason: Opiate Reversal Olanzapine (Olanzapine 2.5 Mg Tablet) 2.5 mg PO DAILY [facility] Last Admin: 04/10/25 09:21 Dose: 2.5 mg Documented By: STEVEN Ondansetron HCl (Ondansetron 4 Mg/2 Ml Inj) 4 mg IV Q8HR PRN PRN Reason: Nausea And Vomiting Oxybutynin Chloride (Oxybutynin 5 Mg Er Tab) 10 mg PO DAILY [facility] Last Admin: 04/10/25 09:21 Dose: 10 mg Documented By: SB Quetiapine Fumarate (Quetiapine 25 Mg Tablet) 50 mg PO BEDTIME [facility] Last Admin: 04/09/25 22:38 Dose: 50 mg Documented By: Sertraline HCl (Sertraline 50 Mg Tablet) 150 mg PO DAILY [facility] Last Admin: 04/10/25 09:20 Dose: 150 mg Documented By: SB Trazodone HCl (Trazodone 50 Mg Tablet) 50 mg PO BEDTIME [facility] Last Admin: 04/09/25 22:38 Dose: 50 mg Documented By: MS Vital Signs Vital signs: Vital Signs - 8 hr 04/09/25 12:15 04/09/25 12:39 04/09/25 12:52 Temperature 98.5 F Pulse Rate 105 H 99 H 95 H Respiratory Rate 26 H 30 H 20 Blood Pressure 118/60 Pulse Oximetry 92 91 91 Oxygen Delivery Method Room Air Room Air Oxygen Flow Rate 0 04/09/25 13:00 04/09/25 13:32 04/09/25 14:00 Temperature Pulse Rate 105 H 101 H Respiratory Rate 33 H Blood Pressure 112/59 L Pulse Oximetry 91 92 Oxygen Delivery Method Oxygen Flow Rate 04/09/25 14:00 04/09/25 14:30 04/09/25 14:30 Temperature Pulse Rate 91 H 87 Respiratory Rate Blood Pressure 112/60 Pulse Oximetry 91 91 Oxygen Delivery Method Oxygen Flow Rate 04/09/25 15:00 04/09/25 15:00 04/09/25 15:30 Temperature Pulse Rate 84 84 Respiratory Rate 20 Blood Pressure 117/64 Pulse Oximetry 91 92 Oxygen Delivery Method Oxygen Flow Rate 04/09/25 16:00 04/09/25 16:30 Temperature Pulse Rate 84 82 Respiratory Rate 33 H Blood Pressure Pulse Oximetry 93 93 Oxygen Delivery Method Oxygen Flow Rate MDM - Abdominal Pain Lab Data 04/10/25 05:10 04/10/25 05:10 Labs: Lab Results 04/09/25 04/09/25 04/09/25 Range/Units 12:35 13:08 14:57 WBC 16.6 H (4.5-11.0) X10^3/uL RBC 4.09 (4.0-5.2) X10^6/uL Hgb 12.5 (12.0-16.0) g/dL Hct 36.4 (36-46) % MCV 89.1 (80-100) fL MCH 30.6 (26-34) PG MCHC 34.3 (30-36) % RDW 12.8 (11.6-14.8) % Plt Count 238 (150-400) X10^3/uL Neut % (Auto) 87.2 H (50-75) % Lymph % (Auto) 2.1 L (25-40) % [place] % (Auto) 10.2 (3-14) % Eos % (Auto) 0.1 L (2-4) % Baso % (Auto) 0.4 (0-2) % Neut # (Auto) 04030 H (5146-9194) /uL Lymph # (Auto) 300 L (0198-4413) /uL [place] # (Auto) 1700 H (0-900) /uL Eos # (Auto) 0 (0-450) /uL Baso # (Auto) 100 (0-100) /uL PT 12.8 H (9.4-12.5) SECONDS INR 1.1 (0.9-1.3) Sodium 133 L (137-145) mmol/L Potassium 4.2 (3.4-5.1) mmol/L Chloride 97 L (98-107) mmol/L Carbon Dioxide 27 (22-32) mmol/L BUN 19 H (7-17) mg/dL Creatinine 0.64 (0.52-1.04) mg/dL Estimated GFR > 60 (>60) mL/min BUN/Creatinine Ratio 29.7 H (6-22) Glucose 143 H (70-99) mg/dL Lactate 3.2 H 2.4 H (0.7-2.1) mmol/L Calcium 9.7 (8.4-10.2) mg/dL Total Bilirubin 0.8 (0.2-1.3) mg/dL AST 36 (14-36) IU/L ALT 27 (<35) IU/L Alkaline Phosphatase 53 (38-126) U/L Troponin I < 0.012 (0.01-0.034) ng/mL NT-Pro-B Natriuret Pep 227 (<450) pg/mL Total Protein 7.4 (6.3-8.2) g/dL Albumin 4.5 (3.5-5.0) g/dL Globulin 2.9 (1.7-4.1) g/dL Albumin/Globulin Ratio 1.6 (1.0-2.8) Urine Color Yellow Urine Appearance Clear Urine pH 5.5 (4.5-8.0) Ur Specific [place] 1.015 (1.000-1.035) Urine Protein Negative (Negative) Urine Glucose (UA) Negative (Negative) g/dL Urine Ketones Trace H (NEGATIVE) Urine Occult Blood Trace-intact (Negative) Urine Nitrate Positive H (Negative) Urine Bilirubin Negative (NEGATIVE) Urine Urobilinogen 0.2 (0.2) E.U./dL Ur Leukocyte Esterase 3+ H (NEGATIVE) Urine RBC None seen (0-5/HPF) Urine WBC 10-30/hpf H (0-5/HPF) Ur Squamous Epith Cells 1-5 /hpf (0-5/HPF) Urine Bacteria Many (>30) H (None) Ur Culture Indicated? Specimen cultured Vol Urine Centrifuged 10ml (spun) Imaging Data CT scan - abdomen/pelvis: Radiologist's Impression: [address] [address] [address] Scan Report Signed Patient: Petty Christy MR#: [id number] : 1935 Acct:[id number] Age/Sex: 89 / F Date of Service: 04/09/25 Loc: ED Accession Number: [id number] Procedure: CT chest abd pel w con Ordering Provider: Tal Larios MD PROCEDURE: CT CHEST ABD PEL W CON INDICATIONS: Dyspnea/abdominal pain/dysuria TECHNIQUE: After the administration of intravenous contrast, 5 mm thick sections acquired from the lung apices to the symphysis. 5 mm coronal and sagittal reformats were performed, with additional 7 mm MIP reformats through the lungs. For radiation dose reduction, the following was used: automated exposure control, adjustment of mA and/or kV according to patient size. COMPARISON: [facility], CT, CT CHEST WO CON, 10/31/2024, 11:34. [facility], CT, CT ABDOMEN PELVIS W CON, 03/11/2025, 17:27. [facility], CR, XR CHEST 1V, 04/09/2025, 13:06. FINDINGS: Image quality: Excellent. CHEST: Lower Neck: No enlarged lymph nodes. Thyroid: No thyroid nodules which require sonographic follow up, per consensus guidelines. Axillae: No enlarged lymph nodes. Chest Wall: Unremarkable. Lungs and Pleura: Small bilateral pleural effusions. No pneumothorax. Peripheral septal line thickening is suspicious for mild edema. Multiple small bilateral pulmonary nodules appear unchanged. The largest measures 4-5 mm in the right middle lobe (5/209). Heart: Heart size is normal. No pericardial effusion. Thoracic Vessels: The aorta and pulmonary arteries demonstrate normal size. Mediastinum and [place]: Multiple small mediastinal lymph nodes are nonspecific and may be reactive. Esophagus: No wall thickening. No hiatal hernia. ABDOMEN: Liver: No solid mass. Stable left hepatic cyst. Stable subtle nodularity of the liver surface. Gallbladder: Small dependent calcified gallstones again seen. No pericholecystic inflammatory changes. Biliary ducts: No biliary dilation. Pancreas: No ductal dilation. Spleen: Size is within normal limits. Adrenal Glands: No adrenal nodules. Kidneys and Ureters: No hydronephrosis. No solid mass. No complex renal cystic lesion which requires follow up. Stable benign appearing left renal cyst. Stomach and Bowel: Normal colonic caliber, without significant wall thickening. Moderate colonic stool. Small bowel and stomach are nondilated. Peritoneum: No abnormal intraperitoneal fluid. No free air. Ventral Wall: Small fat containing periumbilical hernia. Abdominal Nodes: No retroperitoneal or mesenteric adenopathy by size criteria. Vessels: Aorta and inferior vena cava are normal in size. PELVIS: Pelvic Organs: Status post hysterectomy. Bladder: No bladder is obscured by metal streak artifact. Pelvic Nodes: No enlarged lymph nodes. Miscellaneous: No inguinal hernias are seen. Bones: Postsurgical changes from bilateral total hip arthroplasties with associated metal streak artifact that obscures portions of the pelvis. Degenerative changes are seen in the included spine. IMPRESSION: 1. Peripheral reticulations in the lungs are likely related to mild pulmonary edema versus an atypical or viral pneumonia. Small bilateral pleural effusions. 2. Stable small bilateral pulmonary nodules. 3. Cholelithiasis. Approved by: Beto Christianson M.D. on 04/09/2025 at 13:55 Chest x-ray: Radiologist's Impression: [address] [address] XRay Report Signed Patient: Petty Christy MR#: [id number] : 1935 Acct:[id number] Age/Sex: 89 / F Date of Service: 04/09/25 Loc: ED Accession Number: [id number] Procedure: XR chest 1V Ordering Provider: Tal Larios MD PROCEDURE: XR CHEST 1V INDICATIONS: Shortness of breath TECHNIQUE: One view of the chest was acquired. COMPARISON: [facility], CT, CT CHEST WO CON, 10/31/2024, 11:34. [facility], CT, CT CHEST ABD PEL W CON, 04/09/2025, 13:30. [facility], CR, XR CHEST 1V, 08/05/2024, 13:05. FINDINGS: Surgical changes and devices: None. Lungs and pleura: Bilateral interstitial prominence. Haziness at the left costophrenic angle may be secondary to effusion or prominent epicardial fat pad. Mediastinum: Mediastinal contours appear normal. Heart size is normal. Bones and chest wall: No suspicious bony lesions. Overlying soft tissues appear unremarkable. IMPRESSION: Bilateral interstitial prominence is suspicious for mild pulmonary edema. Approved by: Beto Christianson M.D. on 04/09/2025 at 13:28 [facility] Narrative Medical decision making narrative: Patient here for suprapubic burning sensation this morning that has improved. Patient is being treated for UTI by Dr. Boo, primary care for the past 1 week. Patient states her shortness of breath is not not not new. She has COPD/asthma. She is not here for that. Patient did have nausea and vomiting this morning but that has improved. Patient in no distress at this time. No hematuria. No chest pain no palpitations no back pain. After history and exam, CBC CMP urinalysis albuterol nebulizer, CT chest abdomen pelvis [facility] Medical records reviewed: No recent visit for this complaint Differential considered: Includes but not limited to UTI pyelonephritis cystitis sepsis COPD exacerbation pneumonia Lab Test results independently reviewed as above. Pertinent findings: WBC 16.6 hemoglobin 12.5 INR 1.1 sodium 133 potassium 4.2 BUN 19 creatinine 0.64 GFR greater than 60 lactic acid 3.2 urinalysis positive nitrate positive leukocyte esterase, troponin less than 0.012, BNP 227 Independently reviewed EKG normal sinus rhythm rate 100 right bundle-branch block Imaging studies independently reviewed: CT chest abdomen pelvis no acute finding, chest x-ray shows interstitial prominence Consultations: 5:00 p.m.. Spoke with hospitalist, Dr. Vargas, who will admit patient. UTI and COPD exacerbation Re-evaluations: 4:45 p.m.. Updated patient and caregiver, she is too weak to go home. She usually uses a walker but now she is unable to ambulate with a independently. She does desire admission to the hospital. Discussion: Appropriate for admission. Patient has failed outpatient antibiotic for UTI. Patient now too weak to self ambulate with walker. In addition has had COPD exacerbation. Patient now requiring 2 person assist to help her ambulate. This would not be safe at home as she lives alone. Diagnosis: UTI, COPD exacerbation Discharge Plan Departure Patient Disposition: Admitted as Observation Clinical Impression: Acute UTI, Acute exacerbation of chronic obstructive pulmonary disease Admit Date/Time: 04/09/25 16:59 Admit Provider: Haile Vargas
[2025-04-09 13:16] LABS: Alanine Aminotransferase 27 IU/L (<35); Albumin 4.5 g/dL (3.5-5.0); Albumin Globulin Ratio 1.6 (1.0-2.8); Alkaline Phosphatase 53 U/L (38-126); Aspartate Aminotransferase 36 IU/L (14-36); BUN Creatinine Ratio 29.7 (6-22); Bilirubin Total 0.8 mg/dL (0.2-1.3); Blood Urea Nitrogen 19 mg/dL (7-17); Calcium 9.7 mg/dL (8.4-10.2); Carbon Dioxide 27 mmol/L (22-32); Chloride 97 mmol/L (98-107); Estimated Glomerular Filt Rate > 60 mL/min (>60); Globulin 2.9 g/dL (1.7-4.1); Glucose 143 mg/dL (70-99); Potassium 4.2 mmol/L (3.4-5.1); Sodium 133 mmol/L (137-145); Total Protein 7.4 g/dL (6.3-8.2)
[2025-04-09 13:17] LABS: HEMOLYSIS 79 (0-50); Lactate (Lactic Acid) 3.2 mmol/L (0.7-2.1)
[2025-04-09 13:18] LABS: Appearance Urine UA CLEAR; Bilirubin Urine UA NEGATIVE (NEGATIVE); Color Urine UA YELLOW; Glucose Urine UA NEGATIVE (Negative); Ketones Urine UA TRACE (NEGATIVE); Leukocyte Esterase Urine UA 3+ (NEGATIVE); Nitrite Urine UA POSITIVE (Negative); Occult Blood Urine UA TRACE-INTACT (Negative); Protein Urine UA NEGATIVE (Negative); Specific Gravity Urine UA 1.015 (1.000-1.035); Urobilinogen Urine UA 0.2 E.U./dL (0.2)
[2025-04-09 13:21] LABS: pH Urine UA 5.5 (4.5-8.0)
[2025-04-09 13:28] LABS: NT-proBNP (BNP-Adult 18+) 227 pg/mL (<450); Troponin I < 0.012 ng/mL (0.01-0.034)
[2025-04-09 13:29] LABS: Bacteria Urine Many (>30); RBC Urine None Seen (0-5/HPF); Squamous Epithelial Cell Urine 1-5 /HPF (0-5/HPF); Urine Volume 10mL (spun); WBC Urine 10-30/HPF (0-5/HPF)
[2025-04-09 13:30] LABS: Culture Indicated Urine Specimen Cultured
[2025-04-09] MEDS: SODIUM CHLORIDE 0.9% 500 ML 1000 ML IV (14:01)
[2025-04-09] MEDS: CIPROFLOXACIN 400 MG/200 ML PIGGYBACK 200 MG IV (14:08)
[2025-04-09 14:35] LABS: Reflexed Lactate in 2 Hours Y
[2025-04-09 15:18] LABS: Lactate 2HR (Lactic Acid Rflx) 2.4 mmol/L (0.7-2.1)
--- NOTE | 2025-04-09 17:22 | P.HP_ITS ---
History of Present Illness History of Present Illness Date Patient Seen: 04/09/25 Chief complaint: uti, SOB abd pain Narrative: From ED MD: The patient is an 89-year-old female who lives alone in [place]. She presented with weakness and suprapubic burning today. She was currently on oral antibiotics from her primary care doctor, Dr. Boo. She has been on these for 1 week but has not not had any improvement. She was also become progressively weak and having difficulty standing and ambulating. She was chronic COPD and has chronic dyspnea but this is not acutely worse. In the emergency department, she was found to be a 2 person assist and deemed too weak to return home alone. She was given IV antibiotics and IV fluids. Additional history: The patient tells me that she did see her primary care yesterday and was continued on antibiotics with a repeat urine sent. She felt that her urine symptoms had cleared with no more dysuria, hematuria or urinary frequency. She developed acute nausea and vomiting this morning which led to her going to the ER. She did not really feel that she was that week. She also notes that even though she was given a nebulizer her breathing is about at baseline. She does live at home alone, but has a caregiver. 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) Essential tremor (05/19/15) Urge incontinence of urine (05/14/15) Chronic lumbar radiculopathy (08/26/14) Chronic left shoulder pain (12/25/17) Relationship problem with family member Internal hemorrhoids (~08/2020) Feared complaint without diagnosis Allergy to sulfa drugs Tinnitus (~2014) Chicken pox Mumps (1966) Surgical History History of esophagogastroduodenoscopy (EGD) (~03/2016) Anesthesia H/O abdominal surgery (03/2007) History of vaginal surgery (~2008) History of partial knee replacement (2007) History of partial knee replacement (2003) History of hip replacement (2001) History of hip replacement (1996) Status post hysterectomy with oophorectomy (1969) Family History Father Heart disease Pulmonary embolism Grandmother Heart disease Heart attack Sister Cancer Melanoma Grandmother No problems noted. Mother Dementia Grandfather Pneumonia Grandfather Dementia Daughter Depression Social History marital status: details: 07/22/2007 number of children: 1 household members: none lives independently: [facility] pets and animals: No occupational status: previously employed Smoking Status: Never smoker alcohol intake: current substance use type: does not use Meds Home Medications and Allergies Home Medications Medication Instructions Recorded Confirmed Type vitamins A,C,D-ytni-hbaoti 2,148 2 tab PO DAILY 08/26/20 04/04/25 History mcg-113 mg-45 mg-17.4 mg tablet (PreserVision AREDS) Disabled Parking Permit #1 ea 02/21/22 04/04/25 Rx biotin 500 mcg capsule 1 mg PO TID 08/05/24 04/04/25 History cholecalciferol (vitamin D3) 50 150 mcg PO BID 08/07/24 04/04/25 History mcg (2,000 unit) capsule (Vitamin D3) lorazepam 0.5 mg tablet 0.25 mg (1/2 x 0.5 mg) PO BEDTIME 01/09/25 04/04/25 Rx PRN Insomnia #14 tabs meloxicam 15 mg tablet 15 mg PO DAILY #90 tabs 01/09/25 04/04/25 Rx olanzapine 2.5 mg tablet 2.5 mg PO DAILY #90 tabs 01/09/25 04/04/25 Rx omeprazole 20 mg capsule,delayed 20 mg PO DAILY #90 caps 01/09/25 04/04/25 Rx release quetiapine 50 mg tablet 50 mg PO BEDTIME #90 tabs 01/09/25 04/04/25 Rx sertraline 100 mg tablet 150 mg (1.5 x 100 mg) PO DAILY 01/09/25 04/04/25 Rx #135 tabs simvastatin 40 mg tablet 40 mg PO BEDTIME #90 tabs 01/09/25 04/04/25 Rx tolterodine 4 mg capsule,extended 4 mg PO DAILY #90 caps 01/09/25 04/04/25 Rx release 24 hr trazodone 50 mg tablet 25 mg (1/2 x 50 mg) PO BEDTIME PRN 01/09/25 04/04/25 Rx insomnia #45 tabs furosemide 20 mg tablet (Lasix) 20 mg PO QAM #30 tabs 03/17/25 04/04/25 Rx albuterol sulfate 90 mcg/actuation 2 puff inhalation Q4-6H PRN 04/08/25 04/08/25 Rx aerosol inhaler shortness of breath or wheezing #18 grams budesonide-formoterol HFA 80 2 puff inhalation BID #10.2 grams 04/08/25 04/08/25 Rx mcg-4.5 mcg/actuation aerosol inhaler (Symbicort) ipratropium 0.5 mg-albuterol 3 mg 3 ml inhalation QID #180 mL 04/08/25 04/08/25 Rx (2.5 mg base)/3 mL nebulization soln nitrofurantoin 100 mg PO BID 3 days #6 caps 04/08/25 04/08/25 Rx monohydrate/macrocrystals 100 mg capsule (Macrobid) Allergies Allergy/AdvReac Type Severity Reaction Status Date / Time digoxin [DIGOXIN] Allergy Mild LIGHTHEADED Verified 04/04/25 10:23 latex [LATEX] Allergy Mild Verified 04/04/25 10:23 silver Allergy Mild BLISTERS Verified 04/04/25 10:23 (FROM TEGADERM MESH) sulfamethoxazole Allergy Mild Rash Verified 04/04/25 10:23 [From Bactrim] trimethoprim [From Bactrim] Allergy Mild Rash Verified 04/04/25 10:23 cephalexin AdvReac Nausea Verified 04/04/25 10:23 fluconazole AdvReac Nausea Verified 04/04/25 10:23 Review of Systems Review of Systems Narrative: All else reviewed and otherwise unremarkable except as noted in the history and physical. Exam Vital Signs (past 8 hours): - 04/09/25 12:15 04/09/25 12:39 04/09/25 12:52 Temperature 98.5 F Pulse Rate 105 H 99 H 95 H Respiratory Rate 26 H 30 H 20 Blood Pressure 118/60 Pulse Oximetry 92 91 91 Oxygen Delivery Method Room Air Room Air Oxygen Flow Rate 0 04/09/25 13:00 04/09/25 13:32 04/09/25 14:00 Temperature Pulse Rate 105 H 101 H Respiratory Rate 33 H Blood Pressure 112/59 L Pulse Oximetry 91 92 Oxygen Delivery Method Oxygen Flow Rate 04/09/25 14:00 04/09/25 14:30 04/09/25 14:30 Temperature Pulse Rate 91 H 87 Respiratory Rate Blood Pressure 112/60 Pulse Oximetry 91 91 Oxygen Delivery Method Oxygen Flow Rate 04/09/25 15:00 04/09/25 15:00 04/09/25 15:30 Temperature Pulse Rate 84 84 Respiratory Rate 20 Blood Pressure 117/64 Pulse Oximetry 91 92 Oxygen Delivery Method Oxygen Flow Rate 04/09/25 16:00 04/09/25 16:30 04/09/25 17:00 Temperature Pulse Rate 84 82 81 Respiratory Rate 33 H 40 H Blood Pressure 96/55 L Pulse Oximetry 93 93 94 Oxygen Delivery Method Oxygen Flow Rate Oxygen Delivery Method Room Air Oxygen Flow Rate 0 Narrative Exam Narrative: NAD, alert and oriented, fluent speech, calm. Normocephalic skull, EOMI, anicteric sclera, symmetric pupils. Oropharynx unremarkable, no droop. Neck supple, midline trachea, no adenopathy. Lungs clear, normal rate and effort. Heart regular, no murmur gallop or rub. Abdomen is soft, non distended and non tender. Extremities are free of edema. Skin is free of rash or lesions. Joints are not swollen or deformed. Judgment appears to be normal. Objective ECG Impression: Intervals Rector Rate: 100 P: 20 NH: 160 QRS: -14 QRSD: 112 T: 13 QT: 364 QTc: 469 Interpretive Statements Normal sinus rhythm Right bundle branch block Imaging Chest x-ray: Radiologist's impression: Bilateral interstitial prominence is suspicious for mild pulmonary edema. CT scan - abdomen: Radiologist's impression: CHEST: Lower Neck: No enlarged lymph nodes. Thyroid: No thyroid nodules which require sonographic follow up, per consensus guidelines. Axillae: No enlarged lymph nodes. Chest Wall: Unremarkable. Lungs and Pleura: Small bilateral pleural effusions. No pneumothorax. Peripheral septal line thickening is suspicious for mild edema. Multiple small bilateral pulmonary nodules appear unchanged. The largest measures 4-5 mm in the right middle lobe (5/209). Heart: Heart size is normal. No pericardial effusion. Thoracic Vessels: The aorta and pulmonary arteries demonstrate normal size. Mediastinum and Obdulia: Multiple small mediastinal lymph nodes are nonspecific and may be reactive. Esophagus: No wall thickening. No hiatal hernia. ABDOMEN: Liver: No solid mass. Stable left hepatic cyst. Stable subtle nodularity of the liver surface. Gallbladder: Small dependent calcified gallstones again seen. No pericholecystic inflammatory changes. Biliary ducts: No biliary dilation. Pancreas: No ductal dilation. Spleen: Size is within normal limits. Adrenal Glands: No adrenal nodules. Kidneys and Ureters: No hydronephrosis. No solid mass. No complex renal cystic lesion which requires follow up. Stable benign appearing left renal cyst. Stomach and Bowel: Normal colonic caliber, without significant wall thickening. Moderate colonic stool. Small bowel and stomach are nondilated. Peritoneum: No abnormal intraperitoneal fluid. No free air. Ventral Wall: Small fat containing periumbilical hernia. Abdominal Nodes: No retroperitoneal or mesenteric adenopathy by size criteria. Vessels: Aorta and inferior vena cava are normal in size. PELVIS: Pelvic Organs: Status post hysterectomy. Bladder: No bladder is obscured by metal streak artifact. Pelvic Nodes: No enlarged lymph nodes. Miscellaneous: No inguinal hernias are seen. Bones: Postsurgical changes from bilateral total hip arthroplasties with associated metal streak artifact that obscures portions of the pelvis. Degenerative changes are seen in the included spine. IMPRESSION: 1. Peripheral reticulations in the lungs are likely related to mild pulmonary edema versus an atypical or viral pneumonia. Small bilateral pleural effusions. 2. Stable small bilateral pulmonary nodules. 3. Cholelithiasis. Labs 04/09/25 12:35 04/09/25 12:35 Labs: Laboratory Results - last 24 hr 04/09/25 04/09/25 04/09/25 12:35 13:08 14:57 WBC 16.6 H RBC 4.09 Hgb 12.5 Hct 36.4 MCV 89.1 MCH 30.6 MCHC 34.3 RDW 12.8 Plt Count 238 Neut % (Auto) 87.2 H Lymph % (Auto) 2.1 L Garvin % (Auto) 10.2 Eos % (Auto) 0.1 L Baso % (Auto) 0.4 Neut # (Auto) 85708 H Lymph # (Auto) 300 L Garvin # (Auto) 1700 H Eos # (Auto) 0 Baso # (Auto) 100 PT 12.8 H INR 1.1 Sodium 133 L Potassium 4.2 Chloride 97 L Carbon Dioxide 27 BUN 19 H Creatinine 0.64 Estimated GFR > 60 BUN/Creatinine Ratio 29.7 H Glucose 143 H Lactate 3.2 H 2.4 H Calcium 9.7 Total Bilirubin 0.8 AST 36 ALT 27 Alkaline Phosphatase 53 Troponin I < 0.012 NT-Pro-B Natriuret Pep 227 Total Protein 7.4 Albumin 4.5 Globulin 2.9 Albumin/Globulin Ratio 1.6 Urine Color Yellow Urine Appearance Clear Urine pH 5.5 Ur Specific Fithian 1.015 Urine Protein Negative Urine Glucose (UA) Negative Urine Ketones Trace H Urine Occult Blood Trace-intact Urine Nitrate Positive H Urine Bilirubin Negative Urine Urobilinogen 0.2 Ur Leukocyte Esterase 3+ H Urine RBC None seen Urine WBC 10-30/hpf H Ur Squamous Epith Cells 1-5 /hpf Urine Bacteria Many (>30) H Ur Culture Indicated? Specimen cultured Vol Urine Centrifuged 10ml (spun) Assessment & Plan Assessment & Plan narrative: 1. UTI, progressive despite oral antibiotics. Active. 2. Weakness with inability to stand or walk, present on admission and active. 3. COPD, stable. 4. Leukocytosis of 16, active. 5. Restrictive lung disease, active. 6. Obesity class 2 with BMI of 38, active. Plan: -ceftriaxone 1 g IV Q 24 hours and follow up blood and urine cultures. -physical therapy assessment. -monitor breathing, albuterol nebs as needed. Anticipate 1 midnight in the hospital, supports observation status. She was full resuscitation. Time-Based Coding :: 35 min spent with patient and on the chart (including review of chart, obtaining history, exam, reviewing outside data, placing orders, documenting exam and treatment plan, and counseling patient) on 04/09. Quality MIPS - Admit I confirm the patient?s Advance Care Plan is present, Code status is documented, Surrogate decision maker is in patient?s record [If Yes, STOP here]: Yes MIPS - Meds 'Current medications' to include all prescriptions, [id number] products, herbals, cannabis/cannabidiol products, and vitamin/mineral/dietary (nutritional) supplements. I have utilized all available resources to obtain, update, or review the patient?s current medications. [If Yes, STOP here]: Yes
[2025-04-09] MEDS: cefTRIAXone 1,000 MG in SODIUM CHLORIDE 0.9% 100 ML 200 MG IV (17:46)
[2025-04-09] MEDS: SODIUM CHLORIDE 0.45% 1,000 ML 100 ML IV (17:47)
[2025-04-09] MEDS: BUDESONIDE 0.5 MG/2 ML NEB INH (20:58)
[2025-04-09] MEDS: HEPARIN 5,000 UNIT/ML VIAL 5000 UNIT SUBCUT (21:11)
[2025-04-09] MEDS: QUETIAPINE 25 MG TABLET 50 MG PO (22:38)
[2025-04-09] MEDS: TRAZODONE 50 MG TABLET PO (22:38)
[2025-04-09] MEDS: LORazepam 0.5 MG TABLET PO (22:38)
--- NOTE | 2025-04-10 01:03 | PC.NURSE ---
car dryer RN was able to do physical assessment but patient refused skin check stating am way too tired for that right now, i brushed my teeth and got wrapped up in warm blankets, we can do the skin in the morning!. RN stated it would be a brief skin inspection and could have a female RN do it, patient still refused. supervisor hide house aware.
[2025-04-10 06:10] LABS: Hemoglobin 11.4 g/dL (12.0-16.0); Mean Corpuscular HGB Conc 34.4 % (30-36); Mean Corpuscular Hemoglobin 30.4 PG (26-34); Mean Corpuscular Volume 88.4 fL (80-100); Platelet Count 222 X10^3/uL (150-400); Red Blood Cell Count 3.74 X10^6/uL (4.0-5.2)
[2025-04-10 06:23] LABS: BUN Creatinine Ratio 26.2 (6-22); Blood Urea Nitrogen 17 mg/dL (7-17); Calcium 9.3 mg/dL (8.4-10.2); Carbon Dioxide 28 mmol/L (22-32); Chloride 99 mmol/L (98-107); Estimated Glomerular Filt Rate > 60 mL/min (>60); Glucose 101 mg/dL (70-99); HEMOLYSIS < 15 (0-50); Potassium 3.9 mmol/L (3.4-5.1); Sodium 134 mmol/L (137-145)
[2025-04-10] MEDS: FUROSEMIDE 20 MG TABLET PO (09:20)
[2025-04-10] MEDS: SERTRALINE 50 MG TABLET 150 MG PO (09:20)
[2025-04-10] MEDS: HEPARIN 5,000 UNIT/ML VIAL 5000 UNIT SUBCUT (09:20)
[2025-04-10] MEDS: OLANZapine 2.5 MG TABLET PO (09:21)
[2025-04-10] MEDS: OXYBUTYNIN 5 MG ER TAB 10 MG PO (09:21)
--- NOTE | 2025-04-10 09:40 | PT.IIE ---
Addendum entered and electronically signed by Cherry Lorenzo PT 04/10/25 10:46: Sent to Physician for signature on plan of care Original Note: Surgical History (Last Reviewed 08/05/24 @ 15:28 by Haile Vargas MD) Anesthesia H/O abdominal surgery (03/2007) History of esophagogastroduodenoscopy (EGD) (~03/2016) History of hip replacement (1996) History of hip replacement (2001) History of partial knee replacement (2003) History of partial knee replacement (2007) History of vaginal surgery (~2008) Status post hysterectomy with oophorectomy (1969) Medical History (Last Updated 09/04/24 @ 14:12 by Celso Collins MD) Abnormal LFTs Acute exacerbation of chronic obstructive pulmonary disease (~07/2024) Allergy to sulfa drugs Ankle pain, left (2009) Asthma Bronchitis Cataract (03/2014) Chicken pox Chronic left shoulder pain (12/25/17) Chronic lumbar radiculopathy (08/26/14) Chronic prescription benzodiazepine use Dysphagia, pharyngeal phase Essential tremor (05/19/15) Fall Feared complaint without diagnosis Foot pain, left (2009) Hyperlipidemia Hypothyroidism Internal hemorrhoids (~08/2020) Lumbar spinal stenosis Mumps (1966) Obesity (BMI 30-39.9) Peripheral neuropathy Pulmonary nodule less than 6 mm in diameter with low risk for malignant neoplasm (~07/2020) Relationship problem with family member Restrictive lung disease 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 Uses wheelchair for doctor appointments. She reports it is 10 steps from her recliner to the bathroom at home. She sleeps in a lift recliner. She can not go up/down stairs. Activities of Daily Living and IADL's She dresses and baths on her own. She gets help for groceries and transportation from neighbor. She has hired trailer body assembler for cleaning and laundry. She takes sponge baths since her shower is on the second floor and she does not use the stairs. Social History Household Members none Living Arrangements Apartment/Condo Number of Floors (Floors) Two Floors Number of Stairs To Enter/Railing? she stays on first floor of house, ramp to enter home Home Environment High Toilet Home Equipment Front Wheel Walker,Straight Cane,Lift Recliner,Grab Bars Near Toilet Employment Status Retired M2 PT-IP Current Condition Start: 04/10/25 08:12 Freq: NEEDED Status: Active Protocol: Document 04/10/25 09:40 DLM (Rec: 04/10/25 10:45 DLM Desktop) Physical Therapy Current Condition Current Condition Evaluation Date 04/10/25 Treatment Diagnosis UTI, SOB, generalized weakness Onset Date 04/09/25 M3 PT-IP Subjective Start: 04/10/25 08:12 Freq: NEEDED Status: Active Protocol: Document 04/10/25 09:40 DLM (Rec: 04/10/25 10:45 DLM Desktop) Subjective Physical Therapy Visit Type Type Initial Evaluation Visit Start Time 09:00 Visit Stop Time 09:40 Notes 40 min Number of FIRE EQUIPMENT OPERATOR Visits 0 Physical Therapy Visit Comments Patient Comments She reports feeling better today Patient Goals return home M4 PT-IP Mobility and Gait Start: 04/10/25 08:12 Freq: NEEDED Status: Active Protocol: Document 04/10/25 09:40 DLM (Rec: 04/10/25 10:45 DLM Desktop) PT-Bed Mobility Assessment Supine to Sit Supine to Sit Minimal Assistance Scooting Scooting to Edge of Bed Moderate Assistance PT-Transfer Assessment Sit to and From Stand Sit to and from Stand Contact Guard Assistance, Minimal Assistance,Use of Upper Extremities Equipment Transfer Assistive Device Gait Belt,Front Wheeled Walker Transfers Transfer Destination Bed,Chair,Bedside Commode Transfer Technique Stand Step Pivot Transfer Ability Level of Assist Standby Assistance,Use of Upper Extremities Comments Mobility Comments She sleeps in a lift recliner at home and has difficulty scooting on the bed to get to the edge. The head of the bed was left elevated to assist pt with mobility. She is able to stand from some surfaces with stand-by assist but needs up to min assist from other seated surfaces. She reports having all taller surfaces at home to assist with sit-stand. She demonstrates good weight bearing on LE's for standing and gait. She develops mild shortness of breath with activity which she reports is baseline. Her breath sounds are course with intermittent congested cough which pt also reports is baseline. Gait Assessment Gait Gait Assistance Required: Standby Assistance Distance (Feet) 20 Assistive Devices Assistive Device Gait Belt,Front Wheeled Walker Factors Limiting Gait Function Factors Limiting Gait Function Decreased Activity Tolerance, Respiratory Distress Comments Gait Comments she demonstrates safe use of FWW, no losses of balance observed, mild shortness of breath with gait that resolves with seated rest break Stair Climbing Assessment Comments Stair Climbing Comments ramp at home PT-Balance Assessment Sitting Balance and Reactions Static Sitting Balance Ability Normal Dynamic Sitting Balance Ability Normal Standing Balance and Reactions Static Standing Balance Ability Good Dynamic Standing Balance Ability Good Device Used FWW M5 PT-IP Objective Assessments Start: 04/10/25 08:12 Freq: NEEDED Status: Active Protocol: Document 04/10/25 09:40 DLM (Rec: 04/10/25 10:45 DLM Desktop) Orientation Orientation/Cognition Level of Alertness Alert Orientation Name,Age,Birthday,Month,Date, Year,Day of Week,Place, Situation Language Function Ability Hard of Hearing Safety Awareness Understands Safety Issues Memory Description No Deficits Noted Gross Range of Motion Upper Extremity ROM Assessment Within Functional Limits Lower Extremity ROM Assessment Within Functional Limits Strength Upper Extremity Strength Assessment Within Functional Limits Lower Extremity Strength Assessment Within Functional Limits Coordination Assessment Gross Coordination Gross Coordination WNL Assessment Coordination Comments mild intermittent tremor at this time, hx of tremor noted in chart Sensation Assessment Sensation Gross Sensation Right LE Impaired,Left LE Impaired Sensation Description Numbness Comments Sensation Comments hx of neuropathy Muscle Tone Muscle Tone WNL Yes Comments Muscle Tone Comments she has a mild generalized stiffness M6 PT-IP Treatment Start: 04/10/25 08:12 Freq: NEEDED Status: Active Protocol: Document 04/10/25 09:40 DLM (Rec: 04/10/25 10:45 DLM Desktop) Physical Therapy Treatment Education Education Provided Safety Equipment Issued Equipment Type and Company pt has her FWW in the room today M7 PT-IP Assessment and Plan Start: 04/10/25 08:12 Freq: NEEDED Status: Active Protocol: Document 04/10/25 09:40 DLM (Rec: 04/10/25 10:45 DLM Desktop) PT Summary Assessment and Plan Potential Rehabilitation Potential Good Status of Condition at Evaluation Evolving Summary Impairments Bed Mobility,Transfers,Gait, Activity Tolerance Assessment Summary Petty was admitted with increased weakness with UTI. She reports she is feeling better today. She was able to progress her activity today to ambulating in the room with the FWW, sitting in the recliner and getting up to bedside commode for toileting needs. She ambulates short distances with her FWW at home . She describes having a good support system at home with neighbor and blending tank tender helper. She is very motivated to discharge home when she leaves the hospital. Will work towards progressing her activity tolerance during this hospitalization. Goals Transfer Goal Independent,Front Wheeled Walker Gait Goal Independent,Front Wheel Walker Gait Distance 50 feet Days to Meet Goals 2 Frequency of Treatment Frequency Of Treatment Once a Day Treatment Plan Physical Therapy Treatment Plan Bed Mobility Training,Transfer Training,Gait Training, Therapeutic Exercise,Balance Retraining,Discharge Planning, Neuromuscular Re-ed Other Recommendations and Next Treatment pt sleeps lift recliner at [employer] [facility], will train in bed mobility to assist with hospital mobility Precautions Other Precautions fall risk, sleeps in recliner at home Recommendations To Nursing Amount of Assist Needed 1 Person Assist Discharge Recommendations PT Discharge Recommendations Home with Assistance Other Discharge Recommendations has regular help at home Transportation Needs at Discharge Private Vehicle - PT assist 1
[2025-04-10 09:49] VITALS: PULSE 94; RESP 20; O2SAT 95
[2025-04-10] MEDS: BUDESONIDE 0.5 MG/2 ML NEB INH (09:49)
[2025-04-10 09:58] VITALS: PULSE 96; RESP 20; O2SAT 96
[2025-04-10] MEDS: ALBUTEROL 2.5 MG/3 ML NEB (ADULT) INH (09:58)
--- NOTE | 2025-04-10 10:43 | P.DS_ITS ---
History of Present Illness History of Present Illness Date Patient Seen: 04/10/25 Time Patient Seen: 10:43 Chief complaint: uti, SOB abd pain Narrative: From ED MD: The patient is an 89-year-old female who lives alone in [place]. She presented with weakness and suprapubic burning today. She was currently on oral antibiotics from her primary care doctor, Dr. Boo. She has been on these for 1 week but has not not had any improvement. She was also become progressively weak and having difficulty standing and ambulating. She was chronic COPD and has chronic dyspnea but this is not acutely worse. In the emergency department, she was found to be a 2 person assist and deemed too weak to return home alone. She was given IV antibiotics and IV fluids. Additional history: The patient tells me that she did see her primary care yesterday and was continued on antibiotics with a repeat urine sent. She felt that her urine symptoms had cleared with no more dysuria, hematuria or urinary frequency. She developed acute nausea and vomiting this morning which led to her going to the ER. She did not really feel that she was that week. She also notes that even though she was given a nebulizer her breathing is about at baseline. She does live at home alone, but has a caregiver. Discharge Providers Provider Date of admission: 04/09/25 16:59 Discharge Date: 04/10/25 Primary care physician: Ariella Boo DO Consults: 04/09/25 17:20 Consult to Physical Therapy Evaluate & Treat Comment: Physician Instructions: Evaluate and Treat 04/09/25 17:21 Consult to Cardio/Pulmonary Rehabilitation Routine Comment: Physician Instructions: Evaluate and treat Discharge provider: David Nobles DO Summary Hospital Course Discharge Diagnosis: 1. UTI, progressive despite oral antibiotics. Active. 2. Weakness with inability to stand or walk, present on admission and active. 3. COPD, stable. 4. Restrictive lung disease, chronic 5. Obesity class 2 with BMI of 38, active. Hospital Course: This is an 89 year old female admitted with weakness in the setting of outpatient failure of nitrofurantoin. She improved in the hospital with ceftriaxone. Her cultures grew a mildly resistant Klebsiella, sensitive to augmentin and new cephalosporins. She was evaluated with therapies and deemed appropriate for discharge home. She will complete antibiotic course with another 5 days of augmentin on discharge based on urine sensitivities. No other changes to her home medications were recommended on discharge. Time Spent with Patient Time spent: Greater than 30 minutes Exam Vital Signs (past 8 hours): Oxygen Delivery Method Room Air Oxygen Flow Rate 0 Narrative Exam Narrative: NAD, alert and oriented, fluent speech, calm. Normocephalic skull, EOMI, anicteric sclera, symmetric pupils. Oropharynx unremarkable, no droop. Neck supple, midline trachea, no adenopathy. Lungs clear, normal rate and effort. Heart regular, no murmur gallop or rub. Abdomen is soft, non distended and non tender. Extremities are free of edema. Skin is free of rash or lesions. Joints are not swollen or deformed. Judgment appears to be normal. Objective Labs 04/10/25 05:10 04/10/25 05:10 Labs: Laboratory Results - last 24 hr 04/09/25 04/09/25 04/09/25 12:35 13:08 14:57 WBC 16.6 H RBC 4.09 Hgb 12.5 Hct 36.4 MCV 89.1 MCH 30.6 MCHC 34.3 RDW 12.8 Plt Count 238 Neut % (Auto) 87.2 H Lymph % (Auto) 2.1 L [place] % (Auto) 10.2 Eos % (Auto) 0.1 L Baso % (Auto) 0.4 Neut # (Auto) 37374 H Lymph # (Auto) 300 L [place] # (Auto) 1700 H Eos # (Auto) 0 Baso # (Auto) 100 PT 12.8 H INR 1.1 Sodium 133 L Potassium 4.2 Chloride 97 L Carbon Dioxide 27 BUN 19 H Creatinine 0.64 Estimated GFR > 60 BUN/Creatinine Ratio 29.7 H Glucose 143 H Lactate 3.2 H 2.4 H Calcium 9.7 Total Bilirubin 0.8 AST 36 ALT 27 Alkaline Phosphatase 53 Troponin I < 0.012 NT-Pro-B Natriuret Pep 227 Total Protein 7.4 Albumin 4.5 Globulin 2.9 Albumin/Globulin Ratio 1.6 Urine Color Yellow Urine Appearance Clear Urine pH 5.5 Ur Specific Donna 1.015 Urine Protein Negative Urine Glucose (UA) Negative Urine Ketones Trace H Urine Occult Blood Trace-intact Urine Nitrate Positive H Urine Bilirubin Negative Urine Urobilinogen 0.2 Ur Leukocyte Esterase 3+ H Urine RBC None seen Urine WBC 10-30/hpf H Ur Squamous Epith Cells 1-5 /hpf Urine Bacteria Many (>30) H Ur Culture Indicated? Specimen cultured Vol Urine Centrifuged 10ml (spun) 04/10/25 04/10/25 05:10 08:53 WBC 12.0 H RBC 3.74 L Hgb 11.4 L Hct 33.0 L MCV 88.4 MCH 30.4 MCHC 34.4 RDW 13.0 Plt Count 222 Neut % (Auto) Lymph % (Auto) [place] % (Auto) Eos % (Auto) Baso % (Auto) Neut # (Auto) Lymph # (Auto) [place] # (Auto) Eos # (Auto) Baso # (Auto) PT INR Sodium 134 L Potassium 3.9 Chloride 99 Carbon Dioxide 28 BUN 17 Creatinine 0.65 Estimated GFR > 60 BUN/Creatinine Ratio 26.2 H Glucose 101 H Lactate 1.0 Calcium 9.3 Total Bilirubin AST ALT Alkaline Phosphatase Troponin I NT-Pro-B Natriuret Pep Total Protein Albumin Globulin Albumin/Globulin Ratio Urine Color Urine Appearance Urine pH Ur Specific Donna Urine Protein Urine Glucose (UA) Urine Ketones Urine Occult Blood Urine Nitrate Urine Bilirubin Urine Urobilinogen Ur Leukocyte Esterase Urine RBC Urine WBC Ur Squamous Epith Cells Urine Bacteria Ur Culture Indicated? Vol Urine Centrifuged [facility] Medical History (Updated 04/09/25 @ 17:11 by Tal Larios MD) Asthma Acute exacerbation of chronic obstructive pulmonary disease (~07/2024) Fall Chronic prescription benzodiazepine use Pulmonary nodule less than 6 mm in diameter with low risk for malignant neoplasm (~07/2020) Peripheral neuropathy Bronchitis Abnormal LFTs Restrictive lung disease Dysphagia, pharyngeal phase Obesity (BMI 30-39.9) Urinary incontinence (2004) Foot pain, left (2009) Ankle pain, left (2009) Lumbar spinal stenosis Cataract (03/2014) Hyperlipidemia Hypothyroidism 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) Essential tremor (05/19/15) Urge incontinence of urine (05/14/15) Chronic lumbar radiculopathy (08/26/14) Chronic left shoulder pain (12/25/17) Relationship problem with family member Internal hemorrhoids (~08/2020) Feared complaint without diagnosis Allergy to sulfa drugs Tinnitus (~2014) Chicken pox Mumps (1966) Surgical History History of esophagogastroduodenoscopy (EGD) (~03/2016) Anesthesia H/O abdominal surgery (03/2007) History of vaginal surgery (~2008) History of partial knee replacement (2007) History of partial knee replacement (2003) History of hip replacement (2001) History of hip replacement (1996) Status post hysterectomy with oophorectomy (1969) Family History Father Heart disease Pulmonary embolism Grandmother Heart disease Heart attack Sister Cancer Melanoma Grandmother No problems noted. Mother Dementia Grandfather Pneumonia Grandfather Dementia Daughter Depression Social History marital status: details: 07/22/2007 number of children: 1 household members: none lives independently: Yes housing: condominium pets and animals: No occupational status: previously employed alcohol intake: never substance use type: does not use Discharge Plan Discharge Plan Patient Disposition: Home Provider Discharge Comment: You were admitted to the hospital for weakness and a resistant UTI. Your urinary infection does appear resistant to your previous antibiotic, but can easily be treated with a different one! You did well with therapies today, okay for discharge home. Discharge orders & Medications Prescriptions: New amoxicillin-pot clavulanate 875-125 mg tablet 1 tab PO BID 5 Days Qty: 10 0RF Continued (DME) Disabled Parking Permit See Rx Instructions .ROUTE .MEDSUPPLY Qty: 1 0RF Rx Instructions: Valid for 5 years sertraline 100 mg tablet See Rx Instructions .ROUTE .COMPLEX Qty: 135 0RF Dose Instruction: TAKE 1& 1/2 TABLETS(150MG) BY MOUTH DAILY Rx Instructions: TAKE 1& 1/2 TABLETS(150MG) BY MOUTH DAILY meloxicam 15 mg tablet 15 mg PO DAILY Qty: 90 1RF omeprazole 20 mg capsule,delayed release(DR/EC) 20 mg PO DAILY Qty: 90 1RF olanzapine 2.5 mg tablet 2.5 mg PO DAILY Qty: 90 1RF quetiapine 50 mg tablet 50 mg PO BEDTIME Qty: 90 3RF simvastatin 40 mg tablet 40 mg PO BEDTIME Qty: 90 3RF tolterodine 4 mg capsule,extended release 24hr 4 mg PO DAILY Qty: 90 1RF lorazepam 0.5 mg tablet 0.25 mg PO BEDTIME PRN (Reason: Insomnia) Qty: 14 1RF trazodone 50 mg tablet 25 mg PO BEDTIME PRN (Reason: insomnia) Qty: 45 1RF furosemide [Lasix] 20 mg tablet 20 mg PO QAM Qty: 30 2RF ipratropium-albuterol 0.5 mg-3 mg(2.5 mg base)/3 mL solution for nebulization 3 ml inhalation QID Qty: 180 1RF budesonide-formoterol [Symbicort] 80-4.5 mcg/actuation HFA aerosol inhaler 2 puff inhalation BID Qty: 10.2 1RF albuterol sulfate 90 mcg/actuation HFA aerosol inhaler 2 puff INHALATION Q4-6H PRN (Reason: shortness of breath or wheezing) Qty: 18 1RF PreserVision AREDS [id number] Tablet 2 tab PO DAILY biotin 500 mcg Capsule 1 mg PO TID cholecalciferol (vitamin D3) [Vitamin D3] 50 mcg (2,000 unit) capsule 150 mcg PO BID Discontinued amoxicillin-pot clavulanate [Augmentin] 500-125 mg tablet 1 tab PO Q12H 5 Days Qty: 10 0RF Follow up/Referrals: Ariella Boo DO [Primary Care Provider] - Diet/Activity/Treatments Diet: Diet as Tolerated and Regular Activity: As tolerated, no restrictions Visit Report/Discharge Packet Instructions: Urinary Tract Infection, How to Prevent Falls Stand Alone Forms: Patient Portal/API, Stroke Signs & Symptoms Discharge Data Primary Care Provider: Ariella Boo Attending Provider: Haile Vargas Admit Date/Time: 04/09/25 16:59
--- NOTE | 2025-04-10 14:14 | CM.DANOTE ---
Initial DCP Assessment Note Pt is an 89 yo female, resident of [place], presented with weakness and suspected UTI, admitted OBS for work up and management. PCP: Ariella Boo Payer: [employer] Reviewed chart, pt discussed in multidisciplinary rounds this morning. Patient much improved, PT has cleared for return home. Patient lives alone in [place], mostly independent with walker and hired care. Patient is eager to return home, friend to transport. CM team will plan to follow clinical course closely in case any DC needs or concerns arise. KATT Holcomb Discharge Planning/Care Management CM Discharge Assessment Start: 04/09/25 17:45 Freq: Status: Active Protocol: Document 04/10/25 14:02 SHERIE (Rec: 04/10/25 14:14 SHERIE [id number]) Discharge Planning Assessment Assigned Marine Operations Coordinator KATT Adam DPJOHNNY/Assigned Designee Name Delfina Garcia, daughter/DPOA tonny Stover, Contact Information Delfina, P [phone] Advance Directives? Yes: Yes; POLST Advance Directives on File Yes History Provided By Patient,Medical Record Has Patient been admitted in last 30 No days? Prior Living Arrangements Apartment/Condo Household Members none Type of transporation used prior to Relies on Others admit Independent with ADL's Yes: Needs assist with higher ADLs Needs Assistance With Meal Prep,Home Chores / Shopping Patient/Family Preference Home with Home Health Barriers to Discharge No Discharge Plan Home Transportation Arrangement Friend
--- NOTE | 2025-04-10 15:58 | PC.NURSE ---
Day shift: Discharge instructions gone over with patient and patient's caregiver Leatha. Patient stated understanding, all questions answered. PIV removed prior to discharge. All belongings with patient. PCT Anthony escorted patient to exit via wheelchair.
--- NOTE | 2025-04-18 10:18 | PC.NURSE ---
late entry- per RN the Ceftriaxone 04/09 dose started at 1746 was complete after admission upstairs at ~1900
== END 2025-04-10 15:45 | disposition home or self-care (01) ==
LOC: ED 14:58 → AC 17:00
PROVIDERS: Internal Medicine; Admitting Provider Hospitalist; Emergency Provider Emergency Medicine; PCP Family Medicine; Referring Provider Emergency Medicine; Visit Provider Hospitalist
DX: J44.1 Chronic obstructive pulmonary disease with (acute) exacerbation (principal); N39.0 Urinary tract infection, site not specified; R53.1 Weakness; E66.01 Morbid (severe) obesity due to excess calories; Z68.38 Body mass index [BMI] 38.0-38.9, adult
CPT/HCPCS: 36415; 71045; 71260; 74177; 80048; 80053; 81001; 83605; 83880; 84484; 85025; 85027; 85610; 87040; 87077; 87086; 87186; 93005; 94640; 94760; 96365; 96367; 96372; 96375; 97162; 99284; G0378; J0696; J0744; J1644; J7050; J7613; Q9967

== ENCOUNTER → 2025-04-18 10:59 | Outpatient (CLI) | payer MEDICARE, OTHER, SELFPAY ==
[2025-04-14 09:57] VITALS: BMI 38.2
== END ==
PROVIDERS: PCP Family Medicine; Visit Provider Family Medicine
DX: N39.0 Urinary tract infection, site not specified (principal)
CPT/HCPCS: 87086

== ENCOUNTER → 2025-04-23 12:50 | Outpatient (CLI) | payer MEDICARE, OTHER, SELFPAY ==
[2025-04-09 20:22] VITALS: BMI 38.2
[2025-04-14 09:57] VITALS: BMI 38.2
--- NOTE | 2025-04-23 12:52 | DI.ECHO.S_ITS ---
[facility]---------+ [facility] : : [address] : : [place] : : [id number] : : Phone: [phone] Echocardiogram Report + + :Name: RICHARD ALVAREZ Study Date: 04/23/2025 Height: 67 in : :Hospital ReadingLocation: Weight: 225 lb : : Gender: Female BSA: 2.1 m2 : :: 1935 Age: 89 yrs BP: 158/84 mmHg: :Reason For Study: SUSPECTED HEART FAILURE : :Ordering Physician: Norma GONZALEZformed By: Mary lBake : :Referring: RUSS GONZALEZ : + + Interpretation Summary The ejection fraction is estimated to be 55-60%. There are no obvious focal wall motion abnormalities noted but poor endocardial definition reduces the sensitivity for the detection of such. Diastolic parameters suggest a relaxation abnormality of the left ventricle, consistent with probable normal filling pressures. The right ventricle is not well visualized. Grossly normal size and function via subcostal views. Pulmonary artery pressures cannot be estimated because of the lack of a measurable TR jet velocity but the IVC suggests a CVP of around 3 mmHg. The aortic root is normal size. Procedure: A two-dimensional transthoracic echocardiogram with color flow and Doppler was performed. Comparison is made with the echocardiogram of 09/10/2020. The study quality was technically difficult. A contrast injection of Definity was performed to improve assessment of LV function. The patient was in sinus rhythm with heart rates between 71-74 bpm during the exam. Left Ventricle: The left ventricle is grossly normal size. There is normal left ventricular wall thickness. The ejection fraction is estimated to be 55- 60%. There are no obvious focal wall motion abnormalities noted but poor endocardial definition reduces the sensitivity for the detection of such. Diastolic parameters suggest a relaxation abnormality of the left ventricle, consistent with probable normal filling pressures. Right Ventricle: The right ventricle is not well visualized. Grossly normal size and function via subcostal views. Atria: The left atrium grossly appears normal in size. Right atrium not well visualized. Mitral Valve: The mitral valve leaflets appear to open well. There is no mitral valve stenosis. There is trace mitral regurgitation. Aortic Valve: The aortic valve opens well. There is no hemodynamically significant valvular aortic stenosis. No aortic regurgitation is present. Tricuspid Valve: The tricuspid valve leaflets are thin and pliable. There is a trace or physiologic amount of tricuspid regurgitation. Pulmonary artery pressures cannot be estimated because of the lack of a measurable TR jet velocity but the IVC suggests a CVP of around 3 mmHg. Pulmonic Valve: The pulmonic valve is not well visualized. There is no pulmonic valvular regurgitation. Great Vessels: The aortic root is normal size. The dimensions of the ascending aorta are normal. The IVC is of normal diameter and collapses greater than 50% with a sniff. This suggests a low right atrial pressure of 3 mm Hg. Pericardium/ Pleura There is no pericardial effusion. There is no pleural effusion. MMode/2D Measurements & Calculations LVIDd: 4.6 cm LVOT diam: 2.0 cm LVIDs: 2.9 cm Ao root diam: 3.3 cm FS: 37.0 % asc Aorta Diam: 3.4 cm IVSd: 1.0 cm LVPWd: 0.73 cm LV galaviz. diameter/BSA (cm/m^2): 2.1 LV sys. diameter/BSA (cm/m^2): 1.3 LA A4 area: 12.5 cm2 IVC diam: 1.9 cm LA length (vol): 5.1 cm RVD1 (basal): 3.9 cm RVD2 (mid): 3.1 cm Doppler Measurements & Calculations Ao V2 max: 149.7 cm/sec LVOT Max Wilder: 103.5 cm/sec Ao V2 mean: 91.0 cm/sec LV V1 max P.3 mmHg Ao max P.0 mmHg LV V1 VTI: 18.0 cm Ao mean P.0 mmHg MAXX(I,D): 2.4 cm2 Ao V2 VTI: 24.2 cm MAXX(V,D): 2.3 cm2 sev ratio: 0.74 MAXX indexed to BSA (cm^2/m^2): 1.1 MV E max wilder: 56.4 cm/sec PA V2 max: 97.5 cm/sec MV A max wilder: 84.5 cm/sec PA V2 mean: 67.5 cm/sec MV E/A: 0.67 PA mean P.1 mmHg Med Peak E' Wilder: 9.4 cm/sec PA pr(Accel): 45.6 mmHg E/E' med: 6.0 Lat Peak E' Wilder: 9.1 cm/sec E/E' lat: 6.2 E/e' average: 6.1 MV dec time: 0.31 sec MVA(VTI): 2.1 cm2 MV V2 mean: 56.3 cm/sec SV(LVOT): 58.9 ml MV mean P.5 mmHg MV V2 VTI: 27.6 cm Reading Physician:07:12 PM
== END ==
LOC: ECHO 12:51
PROVIDERS: PCP Family Medicine; Referring Provider Family Medicine; Visit Provider Family Medicine
DX: I50.30 Unspecified diastolic (congestive) heart failure (principal)
CPT/HCPCS: C8929; Q9957

== ENCOUNTER → 2025-06-11 12:00 | Outpatient (CLI) | payer MEDICARE, OTHER, SELFPAY ==
[2025-04-14 09:57] VITALS: BMI 38.2
--- NOTE | 2025-06-11 12:02 | DI.CT.S_ITS ---
PROCEDURE: CT CHEST WO CON INDICATIONS: SARCOMA TECHNIQUE: Noncontrast 5 mm thick sections acquired from the pulmonary apices to the posterior costophrenic angles. 1 mm lung window, 5 mm thick coronal and sagittal and 7 mm axial MIP reformats were then acquired. For radiation dose reduction, the following was used: automated exposure control, adjustment of mA and/or kV according to patient size. COMPARISON: [facility], CT, CT CHEST ABD PEL W CON, 04/09/2025, 13:30. [facility], CT, CT CHEST WO CON, 10/31/2024, 11:34. FINDINGS: Image quality: Diagnostic. Lower Neck: No enlarged lymph nodes. Thyroid: No thyroid nodules which require sonographic follow up, per consensus guidelines. Axillae: No enlarged lymph nodes. Chest Wall: Unremarkable. Bones: No suspicious osseous lesion. Lungs and Pleura: No pneumothorax or pleural effusions. Mild peripheral reticular thickening. No consolidation. A few small pulmonary nodules. -Right middle lobe 0.5 cm, (3/209), unchanged. -Right middle lobe 0.3 cm, (3/171), unchanged. No new nodule seen. Heart: Heart size is normal. [id number] coronary artery calcifications. No pericardial effusion. Thoracic Vessels: The aorta and pulmonary arteries demonstrate normal size. Mediastinum and Obdulia: No enlarged lymph nodes. Esophagus: No wall thickening. No hiatal hernia. Upper Abdomen: Small hepatic cysts. No adrenal nodule. IMPRESSION: 1. No new or enlarging pulmonary nodule seen. No adenopathy. 2. Resolved pleural effusions. 3. Mild peripheral reticular thickening. This could represent pulmonary fibrosis/interstitial lung disease. Dictated by: Doc Fountain M.D. on 06/11/2025 at 14:32 Approved by: Doc Fountain M.D. on 06/11/2025 at 14:47
== END ==
LOC: CT 12:01
PROVIDERS: PCP Family Medicine; Referring Provider Physician Assistant Medical; Visit Provider Physician Assistant Medical
DX: C49.9 Malignant neoplasm of connective and soft tissue, unspecified (principal)
CPT/HCPCS: 71250

== ENCOUNTER → 2025-06-18 14:31 | Outpatient (CLI) | payer MEDICARE, OTHER, SELFPAY ==
[2025-04-14 09:57] VITALS: BMI 38.2
== END ==
PROVIDERS: PCP Family Medicine; Visit Provider Nurse Practitioner Family
DX: R30.0 Dysuria (principal)
CPT/HCPCS: 81002; 87077; 87086; 87186

== ENCOUNTER → 2025-07-18 10:58 | Outpatient (CLI) | payer MEDICARE, OTHER, SELFPAY ==
[2025-04-14 09:57] VITALS: BMI 38.2
== END ==
PROVIDERS: PCP Family Medicine; Visit Provider Nurse Practitioner Family
DX: R30.0 Dysuria (principal)
CPT/HCPCS: 87077; 87086; 87186

== ENCOUNTER 2025-07-21 03:27 | Inpatient (IN) | payer MEDICARE, OTHER, SELFPAY ==
[2025-04-14 09:57] VITALS: BMI 38.2
[2025-07-21] VITALS (14 sets, daily range): BP systolic 100–121; BP diastolic 51–75; PULSE 70–94; RESP 16–35; TEMP 35.8–36.4; O2SAT 87–97; BMI 36.0
--- NOTE | 2025-07-21 03:31 | ED.CHESTPAIN ---
HPI - Chest Pain General Chief Complaint: Chest Pain Stated Complaint: chest pain Time Seen by Provider: 07/21/25 03:31 History of Present Illness HPI narrative: Patient is a 89-year-old female history of COPD not requiring supplemental oxygen at baseline, asthma, hyperlipidemia, comes into the ED from home via EMS for evaluation of chest pain, shortness of breath. Patient states that she was having chest pain started at around 11:00 p.m. yesterday, she states that it was dull ache, nothing making it better or worse, she states that she had persistent pain and how upon waking up went to the restroom and continued to have this pressure, states that she was also feeling slightly short of breath with this therefore called medics. According to medics patient pulse ox 89% on room air, was given 4 L nasal cannula for comfort, here patient with no actual chest pain but states that she feels the pressure when she takes a deep breath however nonpleuritic in nature. Denies any blood thinners denies any trauma or falls. She denies any known sick contacts denies any recent travel. Related Data Home Medications ?Medication ?Instructions ?Recorded ?Confirmed vitamins A,C,O-jnub-iangjr 2,148 2 tab PO DAILY 08/26/20 07/18/25 mcg-113 mg-45 mg-17.4 mg tablet (PreserVision AREDS) cholecalciferol (vitamin D3) 50 150 mcg PO BID 08/07/24 07/18/25 mcg (2,000 unit) capsule (Vitamin D3) biotin 500 mcg capsule 1 mg PO BID 04/14/25 07/18/25 Previous Rx's ?Medication ?Instructions ?Recorded Disabled Parking Permit #1 ea 02/21/22 meloxicam 15 mg tablet 15 mg PO DAILY #90 tabs 01/09/25 olanzapine 2.5 mg tablet 2.5 mg PO DAILY #90 tabs 01/09/25 omeprazole 20 mg capsule,delayed 20 mg PO DAILY #90 caps 01/09/25 release simvastatin 40 mg tablet 40 mg PO BEDTIME #90 tabs 01/09/25 tolterodine 4 mg capsule,extended 4 mg PO DAILY #90 caps 01/09/25 release 24 hr trazodone 50 mg tablet 25 mg (1/2 x 50 mg) PO BEDTIME PRN 01/09/25 insomnia #45 tabs albuterol sulfate 90 mcg/actuation 2 puff inhalation Q4-6H PRN 04/08/25 aerosol inhaler shortness of breath or wheezing #18 grams budesonide-formoterol HFA 80 2 puff inhalation BID #10.2 grams 04/08/25 mcg-4.5 mcg/actuation aerosol inhaler (Symbicort) ipratropium 0.5 mg-albuterol 3 mg 3 ml inhalation QID #180 mL 04/08/25 (2.5 mg base)/3 mL nebulization soln sertraline 100 mg tablet See Rx Instructions .Route 04/10/25 .COMPLEX #135 tabs estradiol 0.01% (0.1 mg/gram) 0.5 g vaginal 2XW PRN UTI 04/18/25 vaginal cream prevention #42.5 grams furosemide 20 mg tablet (Lasix) 20 mg PO QAM #90 tabs 06/11/25 quetiapine 50 mg tablet 50 mg PO .COMPLEX #120 tabs 06/11/25 cefdinir 300 mg capsule 300 mg PO BID #14 caps 06/18/25 nitrofurantoin macrocrystal 100 mg 100 mg PO BID 5 days #10 caps 07/18/25 capsule Allergies Allergy/AdvReac Type Severity Reaction Status Date / Time digoxin (DIGOXIN) Allergy Mild LIGHTHEADED Verified 07/18/25 11:05 latex (LATEX) Allergy Mild Verified 07/18/25 11:05 silver Allergy Mild BLISTERS Verified 07/18/25 11:05 (FROM TEGADERM MESH) sulfamethoxazole (From Allergy Mild Rash Verified 07/18/25 11:05 Bactrim) trimethoprim (From Bactrim) Allergy Mild Rash Verified 07/18/25 11:05 cephalexin AdvReac Nausea Verified 07/18/25 11:05 fluconazole AdvReac Nausea Verified 07/18/25 11:05 Review of Systems Review of Systems Narrative: General: Denies fever, chills, weight loss HEENT: Denies headache, eye drainage, eye irritation, head trauma, sore throat, voice change Cardiovascular: Positive chest pain, denies palpitations, tachycardia Respiratory: Positive shortness of breath, denies cough, wheeze, stridor GI/: Denies any abdominal pain, nausea, vomiting, diarrhea, bright red blood per rectum, melanotic stools, urinary frequency, urinary retention, dysuria, hematuria MSK: Denies any joint pain, muscle pains, swelling Skin: Denies any rashes, lesions, discoloration Neuro: Denies any headache, lightheadedness, dizziness, fainting, weakness Psych: Denies SI/HI Patient History Medical History (Updated 07/21/25 @ 04:11 by David Nieves DO) Asthma Acute exacerbation of chronic obstructive pulmonary disease (~07/2024) Fall Chronic prescription benzodiazepine use Pulmonary nodule less than 6 mm in diameter with low risk for malignant neoplasm (~07/2020) Peripheral neuropathy Bronchitis Abnormal LFTs Restrictive lung disease Dysphagia, pharyngeal phase Obesity (BMI 30-39.9) Urinary incontinence (2004) Foot pain, left (2009) Ankle pain, left (2009) Lumbar spinal stenosis Cataract (03/2014) Hyperlipidemia Hypothyroidism 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) Essential tremor (05/19/15) Urge incontinence of urine (05/14/15) Chronic lumbar radiculopathy (08/26/14) Chronic left shoulder pain (12/25/17) Relationship problem with family member Internal hemorrhoids (~08/2020) Feared complaint without diagnosis Allergy to sulfa drugs Tinnitus (~2014) Chicken pox Mumps (1966) Surgical History History of esophagogastroduodenoscopy (EGD) (~03/2016) Anesthesia H/O abdominal surgery (03/2007) History of vaginal surgery (~2008) History of partial knee replacement (2007) History of partial knee replacement (2003) History of hip replacement (2001) History of hip replacement (1996) Status post hysterectomy with oophorectomy (1969) Family History Father Heart disease Pulmonary embolism Grandmother Heart disease Heart attack Sister Cancer Melanoma Grandmother No problems noted. Mother Dementia Grandfather Pneumonia Grandfather Dementia Daughter Depression Social History marital status: details: 07/22/2007 number of children: 1 household members: none lives independently: Yes housing: condominium pets and animals: No occupational status: previously employed alcohol intake: never substance use type: does not use alcohol intake frequency: holidays/special occasions only Exam Narrative Exam Narrative: General: Cooperative, well-developed, not in acute distress HEENT: Normocephalic, atraumatic, PERRLA, normal sclera, eyelids normal Neck: Active full range of motion, atraumatic Chest: Normal to inspection, negative crepitus, no overlying erythema ecchymosis Respiratory: Normal respiratory effort, not in acute respiratory distress, patient with shallow breaths, I do hear very faint expiratory wheezes at bilateral lower lung camp, negative cough, wheeze, tachypnea, rhonchi, rales Cardiology: Regular rate rhythm negative gallop, murmur, rubs GI/: No tenderness to palpation, soft, non rigid, normal to inspection, exam deferred MSK: Full active range of motion in all 4 extremities, atraumatic, no tenderness to palpation of any bony prominences Skin: No rashes or lesions noted Neuro: Alert awake oriented x3, moves all 4 extremities spontaneously, cranial nerves intact, able to answer all questions appropriately follows commands appropriately Psych: Cooperative, negative suicidal or homicidal ideations Initial Vital Signs Initial Vital Signs: Vital Signs Pulse Rate 94 H 07/21/25 03:39 Respiratory Rate 28 H 07/21/25 03:39 Blood Pressure 111/65 07/21/25 03:39 Pulse Oximetry 87 L 07/21/25 03:39 Oxygen Delivery Method Room Air 07/21/25 03:39 Course Orders Ordered: ED Orders 07/21/25 03:30 Complete Blood Count AUTO DIFF Stat Comprehensive Metabolic Panel Stat Lipase Stat MAG [Magnesium] Stat NT-proBNP (BNP-Adult 18+) Stat PTT Partial Thromboplastin Filippo Stat Prothrombin Time INR Stat Troponin & CK Cardiac Panel Stat 07/21/25 03:33 XR chest 1V Stat EKG-12 Lead Stat 07/21/25 03:35 Respiratory Panel (Film Array) Stat Discontinued Medications Albuterol (Albuterol 2.5 Mg/3 Ml Neb (Adult)) 2.5 mg INH NOW ONE Stop: 07/21/25 03:34 Last Admin: 07/21/25 03:47 Dose: 2.5 mg Albuterol/Ipratropium (Albuterol/Ipratropium 3 Ml Ampul) 3 ml INH NOW ONE Stop: 07/21/25 03:56 Last Admin: 07/21/25 03:58 Dose: 3 ml Magnesium Sulfate (Magnesium Sulfate) 2 gm in 50 mls @ 150 mls/hr IV NOW ONE Stop: 07/21/25 04:15 Last Infusion: 07/21/25 04:22 Dose: Infused Ceftriaxone Sodium 500 mg/ (Dextrose) 50 mls @ 100 mls/hr IV NOW ONE Stop: 07/21/25 04:01 Last Admin: 07/21/25 04:11 Dose: Not Given Doxycycline Hyclate 100 mg/ (Sodium Chloride) 100 mls @ 100 mls/hr IV NOW ONE Stop: 07/21/25 04:01 Ceftriaxone Sodium 1,000 mg/ (Sodium Chloride) 100 mls @ 200 mls/hr IV NOW ONE Stop: 07/21/25 04:06 Last Admin: 07/21/25 04:21 Dose: 200 mls/hr Methylprednisolone (Methylprednisolone Succ 125 Mg/2 Ml Vial) 125 mg IV NOW ONE Stop: 07/21/25 03:34 Last Admin: 07/21/25 03:39 Dose: 125 mg Vital Signs Vital signs: Vital Signs - 8 hr 07/21/25 03:39 07/21/25 03:48 07/21/25 04:00 Pulse Rate 94 H 88 93 H Respiratory Rate 28 H 22 22 Blood Pressure 111/65 Pulse Oximetry 87 L 95 93 Oxygen Delivery Method Room Air Nasal Cannula Nasal Cannula Oxygen Flow Rate 4 4 Fraction of Inspired Oxygen 93 32 MDM - Chest Pain Lab Data 07/21/25 03:30 07/21/25 03:30 Labs: Lab Results 07/21/25 Range/Units 03:30 WBC 14.7 H (4.5-11.0) X10^3/uL RBC 4.29 (4.0-5.2) X10^6/uL Hgb 12.8 (12.0-16.0) g/dL Hct 37.6 (36-46) % MCV 87.8 (80-100) fL MCH 29.9 (26-34) PG MCHC 34.1 (30-36) % RDW 14.2 (11.6-14.8) % Plt Count 194 (150-400) X10^3/uL Neut % (Auto) 82.2 H (50-75) % Lymph % (Auto) 6.3 L (25-40) % [place] % (Auto) 6.5 (3-14) % Eos % (Auto) 2.7 (2-4) % Baso % (Auto) 2.3 H (0-2) % Neut # (Auto) 63059 H (4265-7955) /uL Lymph # (Auto) 900 L (3241-7276) /uL [place] # (Auto) 1000 H (0-900) /uL Eos # (Auto) 400 (0-450) /uL Baso # (Auto) 300 H (0-100) /uL PT 12.2 (9.4-12.5) SECONDS INR 1.1 (0.9-1.3) APTT 28 (25.1-36.5) SECONDS Sodium 133 L (137-145) mmol/L Potassium 3.6 (3.4-5.1) mmol/L Chloride 99 (98-107) mmol/L Carbon Dioxide 25 (22-32) mmol/L BUN 25 H (7-17) mg/dL Creatinine 0.72 (0.52-1.04) mg/dL Estimated GFR > 60 (>60) mL/min BUN/Creatinine Ratio 34.7 H (6-22) Glucose 117 H (70-99) mg/dL Calcium 9.9 (8.4-10.2) mg/dL Magnesium 2.1 (1.6-2.3) mg/dL Total Bilirubin 0.9 (0.2-1.3) mg/dL AST 36 (14-36) IU/L ALT 24 (<35) IU/L Alkaline Phosphatase 80 (38-126) U/L Total Creatine Kinase 235 H (30-135) U/L Troponin I < 0.012 (0.01-0.034) ng/mL NT-Pro-B Natriuret Pep 392 (<450) pg/mL Total Protein 7.2 (6.3-8.2) g/dL Albumin 4.4 (3.5-5.0) g/dL Globulin 2.8 (1.7-4.1) g/dL Albumin/Globulin Ratio 1.6 (1.0-2.8) Lipase 34 (23-300) U/L ECG Data Interpretation: EKG interpreted by ED physician, sinus 94 beats per minute QTC 457 QRS WI interval within normal limits, right bundle-branch block noted, no STEMI, this is similar to previous performed on 04/09/2025 MDM Narrative Medical decision making narrative: 89-year-old female with a history of COPD not on supplemental oxygen at baseline, hyperlipidemia, presents to the emergency department from home via EMS for evaluation of chest pain shortness of breath, she states that her chest pain started at around 11:00 p.m. yesterday, she states that it is a pressure she feels like taking a deep breath makes it worse however denies pleuritic chest pain. She states that she is not having any symptoms at rest. According to medics she was given full-dose aspirin prior to arrival, patient mid 80s on room air improved after patient was placed on 2 L nasal cannula. Patient was given Solu-Medrol, magnesium, albuterol, DuoNeb with improvement to her shortness of breath. EKG was without any ischemic changes. Her lab work and chest x-ray did show early infiltrate of the right lower lobe therefore we will order Rocephin doxy. Patient with leukocytosis of 14.7, Chem panel unremarkable, patient with a curb 65 of 2, troponin negative, BNP 392, given patient requiring supplemental oxygen in the setting of pneumonia and a curb 65 of 2 patient will require admission to the hospital for IV antibiotics oxygen administration and further evaluation treatment. Patient with a heart score of 3. The patient's management plan was discussed Dr. Hoskins, who agrees to admit the patient to their service and assumes care of this patient at this time. Full admission orders will be placed by the primary team. Discharge Plan Departure Patient Disposition: Admitted As Inpatient Clinical Impression: Acute and chronic respiratory failure with hypoxia, Acute exacerbation of chronic obstructive pulmonary disease, Pneumonia involving right lung
--- NOTE | 2025-07-21 03:33 | DI.RAD.S_ITS ---
PROCEDURE: XR CHEST 1V INDICATIONS: chest pain TECHNIQUE: One view of the chest was acquired. COMPARISON: [facility], CR, XR CHEST 1V, 04/09/2025, 13:06. FINDINGS: Surgical changes and devices: None. Lungs and pleura: Question patchy bibasilar infiltrates. No pleural effusions or pneumothorax. Mediastinum: Mediastinal contours appear normal. Heart size is normal. Bones and chest wall: No suspicious bony lesions. Advanced bilateral glenohumeral joint degenerative arthritis. Overlying soft tissues appear unremarkable. IMPRESSION: Question patchy bibasilar infiltrates. Comment: Final report is concordant with preliminary interpretation provided by [facility]. Dictated by: Herrera Farris M.D. on 07/21/2025 at 8:14 Approved by: Herrera Farris M.D. on 07/21/2025 at 8:16
--- NOTE | 2025-07-21 03:33 | EKG_ITS ---
[place] [id number] [place] [address] Test Date: 2025-07-21 Pat Name: Petty Christy Department: Room: Gender: Female Project Management It Specialist: HARDY : 1935 Requested By: Order Number: [id number] Reading MD: Haile Vargas Measurements Intervals [place] Rate: 94 P: 37 DE: 150 QRS: 0 QRSD: 116 T: -4 QT: 366 QTc: 457 Interpretive Statements Normal sinus rhythm Incomplete right bundle branch block Nonspecific ST and T wave abnormality Electronically Signed On 07-21-2025 13:50:00 PDT by Haile Vargas
[2025-07-21] MEDS: methylPREDNISolone succ 125 MG/2 ML VIAL IV (03:39)
[2025-07-21 03:43] LABS: Add Manual Diff / Slide Review NO; Hematocrit 37.6 % (36-46); Hemoglobin 12.8 g/dL (12.0-16.0); Lymphocytes Absolute Auto 900 /uL (1100-4500); Mean Corpuscular HGB Conc 34.1 % (30-36); Mean Corpuscular Hemoglobin 29.9 PG (26-34); Mean Corpuscular Volume 87.8 fL (80-100); Platelet Count 194 X10^3/uL (150-400)
[2025-07-21 03:44] LABS: INR 1.1 (0.9-1.3); Prothrombin Time 12.2 SECONDS (9.4-12.5)
[2025-07-21 03:47] LABS: PTT Partial Thromboplastin Tim 28 SECONDS (25.1-36.5)
[2025-07-21] MEDS: ALBUTEROL 2.5 MG/3 ML NEB (ADULT) INH (03:47)
[2025-07-21 03:49] LABS: Alanine Aminotransferase 24 IU/L (<35); Albumin 4.4 g/dL (3.5-5.0); Albumin Globulin Ratio 1.6 (1.0-2.8); Alkaline Phosphatase 80 U/L (38-126); Blood Urea Nitrogen 25 mg/dL (7-17); Calcium 9.9 mg/dL (8.4-10.2); Carbon Dioxide 25 mmol/L (22-32); Chloride 99 mmol/L (98-107); Creatine Kinase 235 U/L (30-135); Estimated Glomerular Filt Rate > 60 mL/min (>60); Globulin 2.8 g/dL (1.7-4.1); Glucose 117 mg/dL (70-99); HEMOLYSIS < 15 (0-50); Lipase 34 U/L (23-300); Magnesium 2.1 mg/dL (1.6-2.3); Potassium 3.6 mmol/L (3.4-5.1); Sodium 133 mmol/L (137-145); Total Protein 7.2 g/dL (6.3-8.2)
[2025-07-21] MEDS: ALBUTEROL/IPRATROPIUM 3 ML AMPUL INH ×4 (03:58→18:23)
[2025-07-21 04:00] LABS: NT-proBNP (BNP-Adult 18+) 392 pg/mL (<450); Troponin I < 0.012 ng/mL (0.01-0.034)
[2025-07-21] MEDS: MAGNESIUM SULFATE 2 GM/50 ML PIGGYBACK IV (04:00)
[2025-07-21 04:31] LABS: Coronavirus NL 63 Not Detected (Not Detect); SARS- CoV-2 Not Detected (Not Detecte)
[2025-07-21] MEDS: DOXYCYCLINE 100 MG in SODIUM CHLORIDE 0.9% 100 ML IV ×2 (04:52→14:52)
--- NOTE | 2025-07-21 05:08 | PM.HP.1 ---
History of Present Illness History of Present Illness Date Patient Seen: 07/21/25 Time Patient Seen: 05:08 Chief complaint: chest pain Narrative: 89-year-old female with past medical history of COPD on oxygen dependent, asthma, hyperlipidemia CHF presents with complaint of shortness of breath and chest pain. Per the patient's report, around 11 PM last night, the patient started to have some left-sided chest pain. The patient also reports some shortness of breath and a cough associated with her pain. The patient describes her pain as pressure-like, nonradiating, left-sided and associate with shortness of breath and wheezing. The patient denies any recent fever, chills, nausea, vomiting, diarrhea or syncope. In emergency room, the patient was hemodynamically stable but was requiring 3 to 4 L oxygen per nasal cannula. Chest x-ray shows focal pneumonia. Patient required Solu-Medrol and DuoNebs. The patient was able to be weaned down to 2 L oxygen per new cannula. WBC was 14 and other labs were relatively benign. Trope was negative and BNP was only 392. EKG shows no sign of acute ischemia. Patient the patient was also given doxycycline and IV ceftriaxone. 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) Essential tremor (05/19/15) Urge incontinence of urine (05/14/15) Chronic lumbar radiculopathy (08/26/14) Chronic left shoulder pain (12/25/17) Relationship problem with family member Internal hemorrhoids (~08/2020) Feared complaint without diagnosis Allergy to sulfa drugs Tinnitus (~2014) Chicken pox Mumps (1966) Surgical History History of esophagogastroduodenoscopy (EGD) (~03/2016) Anesthesia H/O abdominal surgery (03/2007) History of vaginal surgery (~2008) History of partial knee replacement (2007) History of partial knee replacement (2003) History of hip replacement (2001) History of hip replacement (1996) Status post hysterectomy with oophorectomy (1969) Family History Father Heart disease Pulmonary embolism Grandmother Heart disease Heart attack Sister Cancer Melanoma Grandmother No problems noted. Mother Dementia Grandfather Pneumonia Grandfather Dementia Daughter Depression Social History marital status: details: 07/22/2007 number of children: 1 household members: none lives independently: Yes housing: condominium pets and animals: No occupational status: previously employed Smoking Status: Never smoker alcohol intake: never substance use type: does not use Meds Home Medications and Allergies Home Medications ?Medication ?Instructions ?Recorded ?Confirmed ?Type vitamins A,C,D-tkza-rwvxwe 2,148 2 tab PO DAILY 08/26/20 07/21/25 History mcg-113 mg-45 mg-17.4 mg tablet (PreserVision AREDS) Disabled Parking Permit #1 ea 02/21/22 07/18/25 Rx cholecalciferol (vitamin D3) 50 150 mcg PO BID 08/07/24 07/21/25 History mcg (2,000 unit) capsule (Vitamin D3) meloxicam 15 mg tablet 15 mg PO DAILY #90 tabs 01/09/25 07/21/25 Rx olanzapine 2.5 mg tablet 2.5 mg PO DAILY #90 tabs 01/09/25 07/21/25 Rx omeprazole 20 mg capsule,delayed 20 mg PO DAILY #90 caps 01/09/25 07/21/25 Rx release simvastatin 40 mg tablet 40 mg PO BEDTIME #90 tabs 01/09/25 07/21/25 Rx tolterodine 4 mg capsule,extended 4 mg PO DAILY #90 caps 01/09/25 07/21/25 Rx release 24 hr trazodone 50 mg tablet 25 mg (1/2 x 50 mg) PO BEDTIME PRN 01/09/25 07/21/25 Rx insomnia #45 tabs albuterol sulfate 90 mcg/actuation 2 puff inhalation Q4-6H PRN 04/08/25 07/21/25 Rx aerosol inhaler shortness of breath or wheezing #18 grams budesonide-formoterol HFA 80 2 puff inhalation BID #10.2 grams 04/08/25 07/21/25 Rx mcg-4.5 mcg/actuation aerosol inhaler (Symbicort) ipratropium 0.5 mg-albuterol 3 mg 3 ml inhalation QID #180 mL 04/08/25 07/21/25 Rx (2.5 mg base)/3 mL nebulization soln sertraline 100 mg tablet See Rx Instructions .Route 04/10/25 07/21/25 Rx .COMPLEX #135 tabs biotin 500 mcg capsule 1 mg PO BID 04/14/25 07/21/25 History estradiol 0.01% (0.1 mg/gram) 0.5 g vaginal 2XW PRN UTI 04/18/25 07/21/25 Rx vaginal cream prevention #42.5 grams furosemide 20 mg tablet (Lasix) 20 mg PO QAM #90 tabs 06/11/25 07/21/25 Rx quetiapine 50 mg tablet 50 mg PO .COMPLEX #120 tabs 06/11/25 07/21/25 Rx cefdinir 300 mg capsule 300 mg PO BID #14 caps 06/18/25 07/21/25 Rx Allergies Allergy/AdvReac Type Severity Reaction Status Date / Time digoxin (DIGOXIN) Allergy Mild LIGHTHEADED Verified 07/18/25 11:05 latex (LATEX) Allergy Mild Verified 07/18/25 11:05 silver Allergy Mild BLISTERS Verified 07/18/25 11:05 (FROM TEGADERM MESH) sulfamethoxazole (From Allergy Mild Rash Verified 07/18/25 11:05 Bactrim) trimethoprim (From Bactrim) Allergy Mild Rash Verified 07/18/25 11:05 cephalexin AdvReac Nausea Verified 07/18/25 11:05 fluconazole AdvReac Nausea Verified 07/18/25 11:05 Review of Systems Review of Systems ROS: Yes All systems reviewed with the patient and are negative except as otherwise documented Exam Vital Signs (past 8 hours): - 07/21/25 03:39 07/21/25 03:48 07/21/25 04:00 Pulse Rate 94 H 88 93 H Respiratory Rate 28 H 22 22 Blood Pressure 111/65 Pulse Oximetry 87 L 95 93 Oxygen Delivery Method Room Air Nasal Cannula Nasal Cannula Oxygen Flow Rate 4 4 Fraction of Inspired Oxygen 93 32 Fraction of Inspired Oxygen 32 SaO2/FiO2 Ratio 290 Oxygen Delivery Method Nasal Cannula Oxygen Flow Rate 4 Narrative Exam Narrative: Physical Exam: GENERAL: The patient is not in any acute distressed. Awake and alert. HEENT: Nonicteric sclerae, PERRLA, EOMI. Oropharynx clear. Moist mucous membranes. Conjunctivae appear well perfused. HEART: Regular rate and rhythm without murmurs. No lower extremities edema. LUNGS: Bilateral wheezing but otherwise Clear to auscultation bilaterally. No crackles or rhonchi ABDOMEN: Soft, positive bowel sounds, nontender. SKIN: No rash, no excessive bruising, petechiae, or purpura. NEUROLOGIC: AxO x 3. Cranial nerves II-XII intact without motor/sensory deficit. Objective Labs 07/21/25 03:30 07/21/25 03:30 Labs: Laboratory Results - last 24 hr 07/21/25 07/21/25 03:30 03:35 WBC 14.7 H RBC 4.29 Hgb 12.8 Hct 37.6 MCV 87.8 MCH 29.9 MCHC 34.1 RDW 14.2 Plt Count 194 Neut % (Auto) 82.2 H Lymph % (Auto) 6.3 L [place] % (Auto) 6.5 Eos % (Auto) 2.7 Baso % (Auto) 2.3 H Neut # (Auto) 96104 H Lymph # (Auto) 900 L [place] # (Auto) 1000 H Eos # (Auto) 400 Baso # (Auto) 300 H PT 12.2 INR 1.1 APTT 28 Sodium 133 L Potassium 3.6 Chloride 99 Carbon Dioxide 25 BUN 25 H Creatinine 0.72 Estimated GFR > 60 BUN/Creatinine Ratio 34.7 H Glucose 117 H Calcium 9.9 Magnesium 2.1 Total Bilirubin 0.9 AST 36 ALT 24 Alkaline Phosphatase 80 Total Creatine Kinase 235 H Troponin I < 0.012 NT-Pro-B Natriuret Pep 392 Total Protein 7.2 Albumin 4.4 Globulin 2.8 Albumin/Globulin Ratio 1.6 Lipase 34 Chlamy pneumoniae PCR Not detected Adenovirus (PCR) Not detected B. pertussis DNA (PCR) Not detected B.parapertussis DNA PCR Not detected Coronavirus OC43 (PCR) Not detected Coronavirus HKU1 (PCR) Not detected Coronavirus 229E (PCR) Not detected SARS-CoV-2 (PCR) Not detected Coronavirus NL63 (PCR) Not detected Human Metapneumovir PCR Not detected Influenza Type A (PCR) Not detected Influenza Type B (PCR) Not detected M. pneumoniae (PCR) Not detected Parainfluenza 1 (PCR) Not detected Parainfluenza 2 (PCR) Not detected Parainfluenza 3 (PCR) Not detected Parainfluenza 4 (PCR) Not detected RSV (PCR) Not detected Entero/Rhino (PCR) Not detected Assessment & Plan Assessment & Plan narrative: COPD exacerbation. Admit the patient to medical telemetry as inpatient. Continue Solu-Medrol and DuoNebs. Treat underlying infection. Pneumonia. Evidence of pneumonia on chest x-ray. Continue IV doxycycline and ceftriaxone. Monitor for sepsis. Acute respiratory failure with hypoxemia. Currently requiring 2 L of oxygen per nasal cannula. Likely due to above. Treat as above and wean oxygen as able. Leukocytosis. WBC 14. No other signs of sepsis. Monitor for now. Chest pain. Trope was negative. Patient chest pain did improve with treatment of COPD exacerbation pneumonia. EKG shows no sign of acute ischemia. Patient chest pain-free now. BNP normal. Monitor for now. Will continue to trend troponin. Hyperlipidemia. Resume home statin. CHF. No sign of volume overload. Resume home Lasix. DVT prophylaxis heparin subcu. CODE STATUS DNR/DNI Disposition likely home in 2 days. - As the provider of this telehealth evaluation, requested by the patient's evaluating physician, I attest that I introduced myself to the patient, provided my credentials and determined that telemedicine via a real-time, 2 way interactive audio and video platform is an appropriate and effective means of providing this service. - I reviewed the patient's chart and had a discussion with the member of the patient's treatment team. - The patient and I mutually agreed with continuation of this evaluation via telemedicine. The patient consented for the telemedicine evaluation. - This virtual encounter was taken place from [place] by Dr. Sudhakar Hoskins. The patient was evaluated at [facility]. The encounter was approximately 35 minutes. The nurse was present during the entire time of the encounter and was able to assists with exam/stethoscope. Time-Based Coding :: [TOTAL MINUTES] spent with patient and on the chart (including review of chart, obtaining history, exam, reviewing outside data, placing orders, documenting exam and treatment plan, and counseling patient) on [DATE].
[2025-07-21 06:44] LABS: Troponin I < 0.012 ng/mL (0.01-0.034)
--- NOTE | 2025-07-21 07:46 | PM.HP.1 ---
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 Per the patient's report, around 11 PM last night, the patient started to have some left-sided chest pain. The patient also reports some shortness of breath and a cough associated with her pain. The patient describes her pain as pressure-like, nonradiating, left-sided and associate with shortness of breath and wheezing. The patient denies any recent fever, chills, nausea, vomiting, diarrhea or syncope. In emergency room, the patient was hemodynamically stable but was requiring 3 to 4 L oxygen per nasal cannula. Chest x-ray shows focal pneumonia. Patient required Solu-Medrol and DuoNebs. The patient was able to be weaned down to 2 L oxygen per new cannula. WBC was 14 and other labs were relatively benign. Trope was negative and BNP was only 392. EKG shows no sign of acute ischemia. Patient the patient was also given doxycycline and IV ceftriaxone. S: She is improving but and denies cough. Some leg edema. O: NAD, alert and oriented. Fluent speech. Lungs are clear, normal rate and effort. Heart is regular, no murmur gallop or rub. Abdomen is soft, non distended. Extremities are free of edema. IMAGING: A/P: 1. COPD exacerbation. Admit the patient to medical telemetry as inpatient. Continue Solu-Medrol and DuoNebs. Treat underlying infection. 2. Pneumonia. Evidence of pneumonia on chest x-ray. Continue IV doxycycline and ceftriaxone. Monitor for sepsis. 3. Acute respiratory failure with hypoxemia. Currently requiring 2 L of oxygen per nasal cannula. Likely due to above. Treat as above and wean oxygen as able. 4. Leukocytosis. WBC 14. No other signs of sepsis. Monitor for now. 5. Chest pain (pleuritic and improving). Troponin was negative. Patient chest pain did improve with treatment of COPD exacerbation pneumonia. EKG shows no sign of acute ischemia. Patient chest pain-free now. BNP normal. Monitor for now. Will continue to trend troponin. 6. Hyperlipidemia. Resume home statin. 7. Acute diastolic heart failure. PLAN: -Add IV Lasix. DVT prophylaxis heparin subcu. CODE STATUS DNR/DNI Anticipate 2 MN in the hospital. 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) Essential tremor (05/19/15) Urge incontinence of urine (05/14/15) Chronic lumbar radiculopathy (08/26/14) Chronic left shoulder pain (12/25/17) Relationship problem with family member Internal hemorrhoids (~08/2020) Feared complaint without diagnosis Allergy to sulfa drugs Tinnitus (~2014) Chicken pox Mumps (1966) Surgical History History of esophagogastroduodenoscopy (EGD) (~03/2016) Anesthesia H/O abdominal surgery (03/2007) History of vaginal surgery (~2008) History of partial knee replacement (2007) History of partial knee replacement (2003) History of hip replacement (2001) History of hip replacement (1996) Status post hysterectomy with oophorectomy (1969) Family History Father Heart disease Pulmonary embolism Grandmother Heart disease Heart attack Sister Cancer Melanoma Grandmother No problems noted. Mother Dementia Grandfather Pneumonia Grandfather Dementia Daughter Depression Social History marital status: details: 07/22/2007 number of children: 1 household members: none lives independently: Yes housing: condominium pets and animals: No occupational status: previously employed Smoking Status: Never smoker alcohol intake: never substance use type: does not use Meds Home Medications and Allergies Home Medications ?Medication ?Instructions ?Recorded ?Confirmed ?Type vitamins A,C,S-fxig-kjgafy 2,148 2 tab PO DAILY 08/26/20 07/21/25 History mcg-113 mg-45 mg-17.4 mg tablet (PreserVision AREDS) Disabled Parking Permit #1 ea 02/21/22 07/21/25 Rx cholecalciferol (vitamin D3) 50 150 mcg PO BID 08/07/24 07/21/25 History mcg (2,000 unit) capsule (Vitamin D3) meloxicam 15 mg tablet 15 mg PO DAILY #90 tabs 01/09/25 07/21/25 Rx olanzapine 2.5 mg tablet 2.5 mg PO DAILY #90 tabs 01/09/25 07/21/25 Rx omeprazole 20 mg capsule,delayed 20 mg PO DAILY #90 caps 01/09/25 07/21/25 Rx release simvastatin 40 mg tablet 40 mg PO BEDTIME #90 tabs 01/09/25 07/21/25 Rx tolterodine 4 mg capsule,extended 4 mg PO DAILY #90 caps 01/09/25 07/21/25 Rx release 24 hr trazodone 50 mg tablet 25 mg (1/2 x 50 mg) PO BEDTIME PRN 01/09/25 07/21/25 Rx insomnia #45 tabs albuterol sulfate 90 mcg/actuation 2 puff inhalation Q4-6H PRN 04/08/25 07/21/25 Rx aerosol inhaler shortness of breath or wheezing #18 grams budesonide-formoterol HFA 80 2 puff inhalation BID #10.2 grams 04/08/25 07/21/25 Rx mcg-4.5 mcg/actuation aerosol inhaler (Symbicort) ipratropium 0.5 mg-albuterol 3 mg 3 ml inhalation QID #180 mL 04/08/25 07/21/25 Rx (2.5 mg base)/3 mL nebulization soln sertraline 100 mg tablet See Rx Instructions .Route 04/10/25 07/21/25 Rx .COMPLEX #135 tabs biotin 500 mcg capsule 1 mg PO BID 04/14/25 07/21/25 History estradiol 0.01% (0.1 mg/gram) 0.5 g vaginal 2XW PRN UTI 04/18/25 07/21/25 Rx vaginal cream prevention #42.5 grams furosemide 20 mg tablet (Lasix) 20 mg PO QAM #90 tabs 06/11/25 07/21/25 Rx quetiapine 50 mg tablet 50 mg PO .COMPLEX #120 tabs 06/11/25 07/21/25 Rx cefdinir 300 mg capsule 300 mg PO BID #14 caps 06/18/25 07/21/25 Rx Allergies Allergy/AdvReac Type Severity Reaction Status Date / Time digoxin (DIGOXIN) Allergy Mild LIGHTHEADED Verified 07/18/25 11:05 latex (LATEX) Allergy Mild Verified 07/18/25 11:05 silver Allergy Mild BLISTERS Verified 07/18/25 11:05 (FROM TEGADERM MESH) sulfamethoxazole (From Allergy Mild Rash Verified 07/18/25 11:05 Bactrim) trimethoprim (From Bactrim) Allergy Mild Rash Verified 07/18/25 11:05 cephalexin AdvReac Nausea Verified 07/18/25 11:05 fluconazole AdvReac Nausea Verified 07/18/25 11:05 Review of Systems Review of Systems Narrative: All else reviewed and otherwise unremarkable except as noted in the history and physical. Exam Vital Signs (past 8 hours): - 07/21/25 03:32 07/21/25 03:33 07/21/25 03:39 Pulse Rate 94 H 94 H Respiratory Rate 28 H Blood Pressure 111/65 111/65 Pulse Oximetry 89 L 87 L Oxygen Delivery Method Room Air Oxygen Flow Rate Fraction of Inspired Oxygen 07/21/25 03:48 07/21/25 04:00 07/21/25 04:00 Pulse Rate 88 93 H 90 Respiratory Rate 22 22 31 H Blood Pressure Pulse Oximetry 95 93 95 Oxygen Delivery Method Nasal Cannula Nasal Cannula Nasal Cannula Oxygen Flow Rate 4 4 3 Fraction of Inspired Oxygen 93 32 07/21/25 04:00 07/21/25 04:30 07/21/25 04:30 Pulse Rate 87 Respiratory Rate 33 H Blood Pressure 100/58 L 107/51 L Pulse Oximetry 96 Oxygen Delivery Method Nasal Cannula Oxygen Flow Rate 3 Fraction of Inspired Oxygen 07/21/25 05:00 07/21/25 05:00 07/21/25 06:19 Pulse Rate 86 Respiratory Rate 35 H Blood Pressure 109/54 L Pulse Oximetry 96 Oxygen Delivery Method Nasal Cannula Nasal Cannula Oxygen Flow Rate 3 Fraction of Inspired Oxygen Fraction of Inspired Oxygen 32 SaO2/FiO2 Ratio 290 Oxygen Delivery Method Nasal Cannula Oxygen Flow Rate 3 Objective Labs 07/21/25 03:30 07/21/25 03:30 Labs: Laboratory Results - last 24 hr 07/21/25 07/21/25 07/21/25 03:30 03:35 05:49 WBC 14.7 H RBC 4.29 Hgb 12.8 Hct 37.6 MCV 87.8 MCH 29.9 MCHC 34.1 RDW 14.2 Plt Count 194 Neut % (Auto) 82.2 H Lymph % (Auto) 6.3 L [place] % (Auto) 6.5 Eos % (Auto) 2.7 Baso % (Auto) 2.3 H Neut # (Auto) 18159 H Lymph # (Auto) 900 L [place] # (Auto) 1000 H Eos # (Auto) 400 Baso # (Auto) 300 H PT 12.2 INR 1.1 APTT 28 Sodium 133 L Potassium 3.6 Chloride 99 Carbon Dioxide 25 BUN 25 H Creatinine 0.72 Estimated GFR > 60 BUN/Creatinine Ratio 34.7 H Glucose 117 H Calcium 9.9 Magnesium 2.1 Total Bilirubin 0.9 AST 36 ALT 24 Alkaline Phosphatase 80 Total Creatine Kinase 235 H Troponin I < 0.012 < 0.012 NT-Pro-B Natriuret Pep 392 Total Protein 7.2 Albumin 4.4 Globulin 2.8 Albumin/Globulin Ratio 1.6 Lipase 34 Chlamy pneumoniae PCR Not detected Adenovirus (PCR) Not detected B. pertussis DNA (PCR) Not detected B.parapertussis DNA PCR Not detected Coronavirus OC43 (PCR) Not detected Coronavirus HKU1 (PCR) Not detected Coronavirus 229E (PCR) Not detected SARS-CoV-2 (PCR) Not detected Coronavirus NL63 (PCR) Not detected Human Metapneumovir PCR Not detected Influenza Type A (PCR) Not detected Influenza Type B (PCR) Not detected M. pneumoniae (PCR) Not detected Parainfluenza 1 (PCR) Not detected Parainfluenza 2 (PCR) Not detected Parainfluenza 3 (PCR) Not detected Parainfluenza 4 (PCR) Not detected RSV (PCR) Not detected Entero/Rhino (PCR) Not detected Assessment & Plan Time-Based Coding :: 35 min spent with patient and on the chart (including review of chart, obtaining history, exam, reviewing outside data, placing orders, documenting exam and treatment plan, and counseling patient) on 07/21. Quality MIPS - Admit I confirm the patient?s Advance Care Plan is present, Code status is documented, Surrogate decision maker is in patient?s record [If Yes, STOP here]: Yes [facility] - Meds 'Current medications' to include all prescriptions, [id number] products, herbals, cannabis/cannabidiol products, and vitamin/mineral/dietary (nutritional) supplements. I have utilized all available resources to obtain, update, or review the patient?s current medications. [If Yes, STOP here]: Yes
[2025-07-21] MEDS: BUDESONIDE 0.5 MG/2 ML NEB INH ×2 (08:29→18:23)
[2025-07-21] MEDS: FUROSEMIDE 20 MG/2 ML VIAL IV (09:44)
[2025-07-21] MEDS: PANTOPRAZOLE DR 20 MG TABLET PO (09:45)
[2025-07-21] MEDS: FUROSEMIDE 20 MG TABLET PO (09:45)
[2025-07-21] MEDS: HEPARIN 5,000 UNIT/ML VIAL 5000 UNIT SUBCUT ×2 (09:45→21:22)
[2025-07-21] MEDS: oxyBUTYnin ER 5 MG TABLET 10 MG PO (09:45)
--- NOTE | 2025-07-21 10:14 | CM.DANOTE ---
Patient is an 89 yo female who was admitted INPT Status on 07/21/25 for COPD/PNA. Pt has [employer] and [employer] for insurance and her PCP is Dr. Ariella Boo at [facility]. EMR was reviewed. Per MD, pt with hx of COPD and CHF and admitted after being SOB for COPD exacerbation and likely pneumonia. Pt currently down to 2LO2. Likely another 1-2 days. Pt last admitted in March 2025 a few months ago for UTI and was able to discharge home no needs. SW met bedside with pt and explained role and pt very pleasant and talkative and confirms she lives in a [facility] apt in [place] where she has lived for 38 yrs (with her spouse until he a few years ago). Pt uses [facility] for short distances and has w/c for longer distances. Pt no longer drives and her neighbor or hired CG provide transport when needed. Pt denies any hx of HH or SNF and states she does not have Home O2 at baseline. DPOA is her Dtr Delfina who lives in [place] and her primary contact is her hired CG Leatha [phone] who pt states lives just a few minutes from her and she is younger around 44 yo and has been very helpful and skilled in helping pt with transport, shopping, laundry and cleaning. Pt completes her own ADLs and mostly sleeps in her recliner. Pt's preference is to return home and feels HH RN/PT needed at d/c to reduce her risk of readmission. HH Choice list provided and no preference and [facility] referral made based on Vendor Calendar. F2F and HH orders completed and sent to [facility] as well. Plan: SW to follow for plan of discharge home via neighbor or CG POV and new [facility] referral made. SW to follow for any further identified discharge planning needs. KATT Vann Discharge Planning/Care Management CM Discharge Assessment Start: 07/21/25 04:36 Freq: Status: Active Protocol: Document 07/21/25 09:34 BF (Rec: 07/21/25 09:43 BF [id number]) Discharge Planning Assessment Assigned Discharge KATT Ruth Tests Superintendent Provider Ariella Boo Insurance Other (enter in Comment) Insurance Comment Medicare DPOA/Assigned Dtr Delfina Designee Name Contact Information [phone] Advance Directives? Yes: Yes; POLST Advance Directives Yes on File History Provided By Patient,Medical Record Has Patient been No admitted in last 30 days? Comment Last admit in March 2025 a few months ago, went home no needs Prior Living Apartment/Condo Arrangements Household Members none Type of Relies on Others transporation used prior to admit Comment CG and neighbor drive her Independent with ADL Yes: mostly, has hired CG for chores and laundry 's Is patient alert and Yes oriented? Needs Assistance Home Chores / Shopping With Caregiver for No Another DME Already Rented / Wheelchair,FWW / Walker Owned Patient/Family Home with Home Health Preference Barriers to No Discharge Discharge Plan Home with Home Health Transportation Friend Arrangement Referrals Initiated Home Health If patient plan is Yes home with home health: Has signed face to face form been completed? Medicare Choice List Yes Provided Medicare choice list patient reviewed on electronic tablet with SNF/HH Preference [facility] based on vendor calendar Whiteboard Updated Yes in Patient Room with name and ext. # of Corporate Affairs Manager Review Status In Process Please Provide Date 07/21/25 Initial DC Assessment Was Performed Next Review Type Continued Stay Review
[2025-07-21] MEDS: methylPREDNISolone succ 125 MG/2 ML VIAL 60 MG IV ×3 (12:12→22:11)
[2025-07-21] MEDS: SERTRALINE 50 MG TABLET 75 MG PO (21:20)
[2025-07-21] MEDS: ATORVASTATIN 20 MG TABLET 10 MG PO (21:22)
[2025-07-22] VITALS (9 sets, daily range): BP systolic 119–147; BP diastolic 63–68; PULSE 63–95; RESP 16–25; TEMP 35.8–36.3; O2SAT 92–96
[2025-07-22] MEDS: DOXYCYCLINE 100 MG in SODIUM CHLORIDE 0.9% 100 ML IV ×2 (02:47→14:31)
[2025-07-22] MEDS: methylPREDNISolone succ 125 MG/2 ML VIAL 60 MG IV ×3 (04:23→17:01)
[2025-07-22 05:27] LABS: Add Manual Diff / Slide Review NO; Hematocrit 35.7 % (36-46); Hemoglobin 12.1 g/dL (12.0-16.0); Lymphocytes Absolute Auto 600 /uL (1100-4500); Mean Corpuscular HGB Conc 33.8 % (30-36); Mean Corpuscular Hemoglobin 29.5 PG (26-34); Mean Corpuscular Volume 87.4 fL (80-100); Platelet Count 214 X10^3/uL (150-400)
[2025-07-22 05:40] LABS: Blood Urea Nitrogen 34 mg/dL (7-17); Calcium 9.8 mg/dL (8.4-10.2); Carbon Dioxide 25 mmol/L (22-32); Chloride 100 mmol/L (98-107); Estimated Glomerular Filt Rate > 60 mL/min (>60); Glucose 161 mg/dL (70-99); HEMOLYSIS < 15 (0-50); Potassium 4.0 mmol/L (3.4-5.1); Sodium 133 mmol/L (137-145)
[2025-07-22] MEDS: PANTOPRAZOLE DR 20 MG TABLET PO (06:23)
--- NOTE | 2025-07-22 07:05 | PM.PN.1 ---
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 Per the patient's report, around 11 PM last night, the patient started to have some left-sided chest pain. The patient also reports some shortness of breath and a cough associated with her pain. The patient describes her pain as pressure-like, nonradiating, left-sided and associate with shortness of breath and wheezing. The patient denies any recent fever, chills, nausea, vomiting, diarrhea or syncope. In emergency room, the patient was hemodynamically stable but was requiring 3 to 4 L oxygen per nasal cannula. Chest x-ray shows focal pneumonia. Patient required Solu-Medrol and DuoNebs. The patient was able to be weaned down to 2 L oxygen per new cannula. WBC was 14 and other labs were relatively benign. Trope was negative and BNP was only 392. EKG shows no sign of acute ischemia. Patient the patient was also given doxycycline and IV ceftriaxone. S: She feels that she was improving, but it was still weak and somewhat short of breath. She was off from oxygen and has a intermittent dry cough. She requests an additional dose of Lasix as she feels that she was still swelling to some degree. O: VS below. NAD, alert and oriented. Fluent speech. Lungs are clear, normal rate and effort. Heart is regular, no murmur gallop or rub. Abdomen is soft, non distended. Extremities are free of edema. IMAGING: CXR: Question patchy bibasilar infiltrates. A/P: 1. COPD exacerbation. Admit the patient to medical telemetry as inpatient. Continue Solu-Medrol and DuoNebs. Treat underlying infection. 2. Pneumonia. Evidence of pneumonia on chest x-ray. Continue IV doxycycline and ceftriaxone. Monitor for sepsis. 3. Acute respiratory failure with hypoxemia. Currently requiring 2 L of oxygen per nasal cannula. Likely due to above. Treat as above and wean oxygen as able. 4. Leukocytosis. WBC 14. No other signs of sepsis. Monitor for now. 5. Chest pain (pleuritic and improving). Troponin was negative. Patient chest pain did improve with treatment of COPD exacerbation pneumonia. EKG shows no sign of acute ischemia. Patient chest pain-free now. BNP normal. Monitor for now. Will continue to trend troponin. 6. Hyperlipidemia. Resume home statin. 7. Acute diastolic heart failure. PLAN: -Add IV Lasix. -Continue Abx, steroids, and bronchodilators. DVT prophylaxis heparin subcu. CODE STATUS DNR/DNI Anticipate 2 MN in the hospital. Exam Vital Signs (past 8 hours): - 07/22/25 00:00 07/22/25 01:33 07/22/25 04:00 Temperature 96.9 F L 97.3 F L Pulse Rate 63 75 Respiratory Rate 19 18 Blood Pressure 147/66 H 119/68 Pulse Oximetry 93 94 95 Oxygen Delivery Method Nasal Cannula Oxygen Flow Rate 4 4 3 Fraction of Inspired Oxygen 36 07/22/25 07:02 Temperature Pulse Rate Respiratory Rate Blood Pressure Pulse Oximetry 93 Oxygen Delivery Method Oxygen Flow Rate 0 Fraction of Inspired Oxygen Fraction of Inspired Oxygen 36 SaO2/FiO2 Ratio 261 Oxygen Delivery Method Nasal Cannula Oxygen Flow Rate 0 Objective Labs 07/22/25 04:53 07/22/25 04:53 Labs: Laboratory Results - last 24 hr 07/22/25 04:53 WBC 14.3 H RBC 4.09 Hgb 12.1 Hct 35.7 L MCV 87.4 MCH 29.5 MCHC 33.8 RDW 13.8 Plt Count 214 Neut % (Auto) 92.5 H Lymph % (Auto) 4.0 L [place] % (Auto) 3.4 Eos % (Auto) 0.0 L Baso % (Auto) 0.1 Neut # (Auto) 41585 H Lymph # (Auto) 600 L [place] # (Auto) 500 Eos # (Auto) 0 Baso # (Auto) 0 Sodium 133 L Potassium 4.0 Chloride 100 Carbon Dioxide 25 BUN 34 H Creatinine 0.80 Estimated GFR > 60 BUN/Creatinine Ratio 42.5 H Glucose 161 H Calcium 9.8 PFSH Medical History Asthma Acute exacerbation of chronic obstructive pulmonary disease (~07/2024) Fall Chronic prescription benzodiazepine use Pulmonary nodule less than 6 mm in diameter with low risk for malignant neoplasm (~07/2020) Peripheral neuropathy Bronchitis Abnormal LFTs Restrictive lung disease Dysphagia, pharyngeal phase Obesity (BMI 30-39.9) Urinary incontinence (2004) Foot pain, left (2009) Ankle pain, left (2009) Lumbar spinal stenosis Cataract (03/2014) Hyperlipidemia Hypothyroidism 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) Essential tremor (05/19/15) Urge incontinence of urine (05/14/15) Chronic lumbar radiculopathy (08/26/14) Chronic left shoulder pain (12/25/17) Relationship problem with family member Internal hemorrhoids (~08/2020) Feared complaint without diagnosis Allergy to sulfa drugs Tinnitus (~2014) Chicken pox Mumps (1966) Surgical History History of esophagogastroduodenoscopy (EGD) (~03/2016) Anesthesia H/O abdominal surgery (03/2007) History of vaginal surgery (~2008) History of partial knee replacement (2007) History of partial knee replacement (2003) History of hip replacement (2001) History of hip replacement (1996) Status post hysterectomy with oophorectomy (1969) Family History Father Heart disease Pulmonary embolism Grandmother Heart disease Heart attack Sister Cancer Melanoma Grandmother No problems noted. Mother Dementia Grandfather Pneumonia Grandfather Dementia Daughter Depression Social History marital status: details: 07/22/2007 number of children: 1 household members: none lives independently: Yes housing: condominium pets and animals: No occupational status: previously employed Smoking Status: Never smoker alcohol intake: never substance use type: does not use Assessment & Plan Time-Based Coding :: [TOTAL MINUTES] spent with patient and on the chart (including review of chart, obtaining history, exam, reviewing outside data, placing orders, documenting exam and treatment plan, and counseling patient) on [DATE].
[2025-07-22] MEDS: HEPARIN 5,000 UNIT/ML VIAL 5000 UNIT SUBCUT ×2 (08:33→21:31)
[2025-07-22] MEDS: oxyBUTYnin ER 5 MG TABLET 10 MG PO (08:33)
[2025-07-22] MEDS: FUROSEMIDE 20 MG TABLET PO (08:33)
[2025-07-22] MEDS: SODIUM CHLORIDE 0.9% FLUSH 10 ML IV ×2 (08:34→21:32)
[2025-07-22] MEDS: BUDESONIDE 0.5 MG/2 ML NEB INH ×2 (09:19→18:05)
[2025-07-22] MEDS: ALBUTEROL/IPRATROPIUM 3 ML AMPUL INH ×3 (09:19→18:05)
--- NOTE | 2025-07-22 12:34 | CM.DPC ---
DCP Cont. Reviewed EMR and team rounds for pt's medical status and updates. Per Hospitalist, pt will need 1-more day before she's medically stable for d/c.
[2025-07-22] MEDS: FUROSEMIDE 20 MG/2 ML VIAL IV (13:38)
[2025-07-22] MEDS: ATORVASTATIN 20 MG TABLET 10 MG PO (21:31)
[2025-07-22] MEDS: SERTRALINE 50 MG TABLET 75 MG PO (21:32)
[2025-07-23] MEDS: methylPREDNISolone succ 125 MG/2 ML VIAL 60 MG IV ×3 (01:00→11:23)
[2025-07-23] MEDS: DOXYCYCLINE 100 MG in SODIUM CHLORIDE 0.9% 100 ML IV (03:29)
[2025-07-23 07:00] VITALS: BP 135/72; PULSE 83; RESP 20; TEMP 35.8; O2SAT 93
[2025-07-23] MEDS: BUDESONIDE 0.5 MG/2 ML NEB INH (07:10)
[2025-07-23] MEDS: ALBUTEROL/IPRATROPIUM 3 ML AMPUL INH ×2 (07:10→13:51)
[2025-07-23 07:13] VITALS: PULSE 81; RESP 16; O2SAT 92
[2025-07-23 07:39] LABS: Hematocrit 39.7 % (36-46); Hemoglobin 13.3 g/dL (12.0-16.0); Mean Corpuscular HGB Conc 33.5 % (30-36); Mean Corpuscular Hemoglobin 29.4 PG (26-34); Mean Corpuscular Volume 87.7 fL (80-100); Platelet Count 293 X10^3/uL (150-400)
[2025-07-23 08:01] LABS: Blood Urea Nitrogen 32 mg/dL (7-17); Calcium 10.2 mg/dL (8.4-10.2); Carbon Dioxide 23 mmol/L (22-32); Chloride 101 mmol/L (98-107); Estimated Glomerular Filt Rate > 60 mL/min (>60); Glucose 136 mg/dL (70-99); HEMOLYSIS < 15 (0-50); Potassium 4.7 mmol/L (3.4-5.1); Sodium 135 mmol/L (137-145)
--- NOTE | 2025-07-23 08:05 | DI.RAD.S_ITS ---
PROCEDURE: XR CHEST 1V INDICATIONS: chf TECHNIQUE: One view of the chest was acquired. COMPARISON: [facility], CR, XR CHEST 1V, 07/21/2025, 3:34. FINDINGS: Surgical changes and devices: None. Lungs and pleura: Mild pulmonary vascular congestion. No definite focal infiltrate. No pleural effusions or pneumothorax. Mediastinum: Mediastinal contours appear normal. Heart size is mildly enlarged. Bones and chest wall: No suspicious bony lesions. Overlying soft tissues appear unremarkable. IMPRESSION: Mild CHF changes. No definite focal infiltrate. No significant pleural effusion or pneumothorax. Dictated by: Tree Gibbs M.D. on 07/23/2025 at 8:54 Approved by: Tree Gibbs M.D. on 07/23/2025 at 8:54
[2025-07-23] MEDS: oxyBUTYnin ER 5 MG TABLET 10 MG PO (08:12)
[2025-07-23] MEDS: FUROSEMIDE 20 MG TABLET PO (08:13)
[2025-07-23] MEDS: HEPARIN 5,000 UNIT/ML VIAL 5000 UNIT SUBCUT ×2 (08:13→21:40)
[2025-07-23] MEDS: PANTOPRAZOLE DR 20 MG TABLET PO (08:13)
[2025-07-23] MEDS: SODIUM CHLORIDE 0.9% FLUSH 10 ML IV (08:13)
--- NOTE | 2025-07-23 13:47 | CM.DPC ---
DCP Cont. Reviewed EMR and team rounds for pt's medical status and updates. Pt continues to slowly improve on IV antibiotics, steroids, and brochodilators. Anticipated 1-2 more days before medically stable for home d/c.
[2025-07-23 13:53] VITALS: PULSE 80; RESP 16; O2SAT 96
--- NOTE | 2025-07-23 16:49 | P.PN_ITS ---
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 Per the patient's report, around 11 PM last night, the patient started to have some left-sided chest pain. The patient also reports some shortness of breath and a cough associated with her pain. The patient describes her pain as pressure-like, nonradiating, left-sided and associate with shortness of breath and wheezing. The patient denies any recent fever, chills, nausea, vomiting, diarrhea or syncope. In emergency room, the patient was hemodynamically stable but was requiring 3 to 4 L oxygen per nasal cannula. Chest x-ray shows focal pneumonia. Patient required Solu-Medrol and DuoNebs. The patient was able to be weaned down to 2 L oxygen per new cannula. WBC was 14 and other labs were relatively benign. Trope was negative and BNP was only 392. EKG shows no sign of acute ischemia. Patient the patient was also given doxycycline and IV ceftriaxone. Hospital course: 07/22: Reports interval improvement of shortness a breath with some leg edema dyspnea with exertion still requiring nasal cannula oxygen 07/23: Importance improved but still having dyspnea with activity today on room air presently Review of systems: No chest pain No fever or chills No nausea vomiting diarrhea No neuro symptoms Physical exam: Alert elderly female pleasant HEENT unremarkable Lungs diminished breath sounds Heart sounds distant Abdomen nondistended bowel sounds present Extremities 1+ edema Assessment and plan: Acute hypoxic respiratory failure secondary to COPD and acute on chronic CHF * Deescalate to oral steroid antibiotics and diuretics * Plan for discharge in the morning 35 minutes were involved in management of this patient including [id number] evaluation review of objective laboratory and imaging data including direct visualization of images review of charts and discussion with care management Exam Vital Signs (past 8 hours): - 07/23/25 13:53 Pulse Rate 80 Respiratory Rate 16 Pulse Oximetry 96 Oxygen Delivery Method Room Air Fraction of Inspired Oxygen 21 Fraction of Inspired Oxygen 21 SaO2/FiO2 Ratio 457 Oxygen Delivery Method Room Air Oxygen Flow Rate 0 Objective Labs 07/23/25 07:03 07/23/25 07:03 Labs: Laboratory Results - last 24 hr 07/23/25 07:03 WBC 14.5 H RBC 4.53 Hgb 13.3 Hct 39.7 MCV 87.7 MCH 29.4 MCHC 33.5 RDW 14.0 Plt Count 293 Sodium 135 L Potassium 4.7 Chloride 101 Carbon Dioxide 23 BUN 32 H Creatinine 0.70 Estimated GFR > 60 BUN/Creatinine Ratio 45.7 H Glucose 136 H Calcium 10.2 PFSH Medical History Asthma Acute exacerbation of chronic obstructive pulmonary disease (~07/2024) Fall Chronic prescription benzodiazepine use Pulmonary nodule less than 6 mm in diameter with low risk for malignant neoplasm (~07/2020) Peripheral neuropathy Bronchitis Abnormal LFTs Restrictive lung disease Dysphagia, pharyngeal phase Obesity (BMI 30-39.9) Urinary incontinence (2004) Foot pain, left (2009) Ankle pain, left (2009) Lumbar spinal stenosis Cataract (03/2014) Hyperlipidemia Hypothyroidism 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) Essential tremor (05/19/15) Urge incontinence of urine (05/14/15) Chronic lumbar radiculopathy (08/26/14) Chronic left shoulder pain (12/25/17) Relationship problem with family member Internal hemorrhoids (~08/2020) Feared complaint without diagnosis Allergy to sulfa drugs Tinnitus (~2014) Chicken pox Mumps (1966) Surgical History History of esophagogastroduodenoscopy (EGD) (~03/2016) Anesthesia H/O abdominal surgery (03/2007) History of vaginal surgery (~2008) History of partial knee replacement (2007) History of partial knee replacement (2003) History of hip replacement (2001) History of hip replacement (1996) Status post hysterectomy with oophorectomy (1969) Family History Father Heart disease Pulmonary embolism Grandmother Heart disease Heart attack Sister Cancer Melanoma Grandmother No problems noted. Mother Dementia Grandfather Pneumonia Grandfather Dementia Daughter Depression Social History marital status: details: 07/22/2007 number of children: 1 household members: none lives independently: Yes housing: condominium pets and animals: No occupational status: previously employed Smoking Status: Never smoker alcohol intake: never substance use type: does not use Assessment & Plan Time-Based Coding :: [TOTAL MINUTES] spent with patient and on the chart (including review of chart, obtaining history, exam, reviewing outside data, placing orders, documenting exam and treatment plan, and counseling patient) on [DATE].
[2025-07-23 19:00] VITALS: BP 154/65; PULSE 78; RESP 17; TEMP 36.4; O2SAT 99
[2025-07-23] MEDS: ATORVASTATIN 20 MG TABLET 10 MG PO (21:40)
[2025-07-23] MEDS: CEFDINIR 300 MG CAPSULE PO (21:40)
[2025-07-23] MEDS: SERTRALINE 50 MG TABLET 75 MG PO (21:41)
[2025-07-24 05:02] LABS: Hematocrit 37.2 % (36-46); Hemoglobin 12.6 g/dL (12.0-16.0); Mean Corpuscular HGB Conc 33.8 % (30-36); Mean Corpuscular Hemoglobin 29.6 PG (26-34); Mean Corpuscular Volume 87.8 fL (80-100); Platelet Count 267 X10^3/uL (150-400)
[2025-07-24 05:18] LABS: Blood Urea Nitrogen 29 mg/dL (7-17); Calcium 9.5 mg/dL (8.4-10.2); Carbon Dioxide 26 mmol/L (22-32); Chloride 102 mmol/L (98-107); Estimated Glomerular Filt Rate > 60 mL/min (>60); Glucose 147 mg/dL (70-99); HEMOLYSIS < 15 (0-50); Potassium 4.7 mmol/L (3.4-5.1); Sodium 135 mmol/L (137-145)
[2025-07-24 07:00] VITALS: BP 136/75; PULSE 70; RESP 17; TEMP 36.1; O2SAT 96
[2025-07-24 07:57] VITALS: PULSE 72; RESP 16; O2SAT 98
[2025-07-24] MEDS: BUDESONIDE 0.5 MG/2 ML NEB INH (07:57)
[2025-07-24] MEDS: ALBUTEROL/IPRATROPIUM 3 ML AMPUL INH ×2 (07:57→13:14)
--- NOTE | 2025-07-24 08:00 | P.DS_ITS ---
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 Per the patient's report, around 11 PM last night, the patient started to have some left-sided chest pain. The patient also reports some shortness of breath and a cough associated with her pain. The patient describes her pain as pressure-like, nonradiating, left-sided and associate with shortness of breath and wheezing. The patient denies any recent fever, chills, nausea, vomiting, diarrhea or syncope. In emergency room, the patient was hemodynamically stable but was requiring 3 to 4 L oxygen per nasal cannula. Chest x-ray shows focal pneumonia. Patient required Solu-Medrol and DuoNebs. The patient was able to be weaned down to 2 L oxygen per new cannula. WBC was 14 and other labs were relatively benign. Trope was negative and BNP was only 392. EKG shows no sign of acute ischemia. Patient the patient was also given doxycycline and IV ceftriaxone. Hospital course: 07/22: Reports interval improvement of shortness a breath with some leg edema dyspnea with exertion still requiring nasal cannula oxygen 07/23: Oxygenation improved but still having dyspnea with activity today on room air presently 07/24: Slept well last night no dyspnea with activity ready for discharge home Review of systems: No chest pain No fever or chills No nausea vomiting diarrhea No neuro symptoms Physical exam: Alert elderly female pleasant HEENT unremarkable Lungs diminished breath sounds Heart sounds distant Abdomen nondistended bowel sounds present Extremities 1+ edema Assessment and plan: Acute hypoxic respiratory failure secondary to COPD and acute on chronic CHF * Deescalate to oral steroid antibiotics and diuretics * Discharge today 35 minutes were involved in management of this patient including [id number] evaluation review of objective laboratory and imaging data including direct visualization of images review of charts and discussion with care management Discharge Providers Provider Date of admission: 07/21/25 04:29 Discharge Date: 07/24/25 Primary care physician: Ariella Boo DO Consults: 07/21/25 09:33 Consult to Home Health Routine Comment: COPD exacerbation, pneumonia, CHF Reason For Exam: Set up HH RN/PT for dc to home when stable Discharge provider: Gualberto Tinoco MD Exam Vital Signs (past 8 hours): Fraction of Inspired Oxygen 21 SaO2/FiO2 Ratio 457 Oxygen Delivery Method Room Air Oxygen Flow Rate 0 Objective Labs 07/24/25 04:44 07/24/25 04:44 Labs: Laboratory Results - last 24 hr 07/23/25 07/24/25 07:03 04:44 WBC 9.9 RBC 4.24 Hgb 12.6 Hct 37.2 MCV 87.8 MCH 29.6 MCHC 33.8 RDW 13.7 Plt Count 267 Sodium 135 L 135 L Potassium 4.7 4.7 Chloride 101 102 Carbon Dioxide 23 26 BUN 32 H 29 H Creatinine 0.70 0.68 Estimated GFR > 60 > 60 BUN/Creatinine Ratio 45.7 H 42.6 H Glucose 136 H 147 H Calcium 10.2 9.5 PFSH Medical History Asthma Acute exacerbation of chronic obstructive pulmonary disease (~07/2024) Fall Chronic prescription benzodiazepine use Pulmonary nodule less than 6 mm in diameter with low risk for malignant neoplasm (~07/2020) Peripheral neuropathy Bronchitis Abnormal LFTs Restrictive lung disease Dysphagia, pharyngeal phase Obesity (BMI 30-39.9) Urinary incontinence (2004) Foot pain, left (2009) Ankle pain, left (2009) Lumbar spinal stenosis Cataract (03/2014) Hyperlipidemia Hypothyroidism 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) Essential tremor (05/19/15) Urge incontinence of urine (05/14/15) Chronic lumbar radiculopathy (08/26/14) Chronic left shoulder pain (12/25/17) Relationship problem with family member Internal hemorrhoids (~08/2020) Feared complaint without diagnosis Allergy to sulfa drugs Tinnitus (~2014) Chicken pox Mumps (1966) Surgical History History of esophagogastroduodenoscopy (EGD) (~03/2016) Anesthesia H/O abdominal surgery (03/2007) History of vaginal surgery (~2008) History of partial knee replacement (2007) History of partial knee replacement (2003) History of hip replacement (2001) History of hip replacement (1996) Status post hysterectomy with oophorectomy (1969) Family History Father Heart disease Pulmonary embolism Grandmother Heart disease Heart attack Sister Cancer Melanoma Grandmother No problems noted. Mother Dementia Grandfather Pneumonia Grandfather Dementia Daughter Depression Social History marital status: details: 07/22/2007 number of children: 1 household members: none lives independently: Yes housing: condominium pets and animals: No occupational status: previously employed Smoking Status: Never smoker alcohol intake: never substance use type: does not use Discharge Plan Discharge Plan Patient Disposition: Home Discharge orders & Medications Prescriptions: New cefdinir 300 mg Capsule 300 mg PO BID Qty: 10 0RF prednisone 10 mg tablets,dose pack See Rx Instructions .ROUTE .COMPLEX Qty: 48 0RF Rx Instructions: orally per package directions Continued cefdinir 300 mg capsule 300 mg PO BID Qty: 14 0RF (DME) Disabled Parking Permit See Rx Instructions .ROUTE .MEDSUPPLY Qty: 1 0RF Rx Instructions: Valid for 5 years sertraline 100 mg tablet See Rx Instructions .ROUTE .COMPLEX Qty: 135 0RF Dose Instruction: TAKE 1& 1/2 TABLETS(150MG) BY MOUTH DAILY Rx Instructions: TAKE 1& 1/2 TABLETS(150MG) BY MOUTH DAILY meloxicam 15 mg tablet 15 mg PO DAILY Qty: 90 1RF omeprazole 20 mg capsule,delayed release(DR/EC) 20 mg PO DAILY Qty: 90 1RF olanzapine 2.5 mg tablet 2.5 mg PO DAILY Qty: 90 1RF simvastatin 40 mg tablet 40 mg PO BEDTIME Qty: 90 3RF tolterodine 4 mg capsule,extended release 24hr 4 mg PO DAILY Qty: 90 1RF trazodone 50 mg tablet 25 mg PO BEDTIME PRN (Reason: insomnia) Qty: 45 1RF estradiol 0.01 % (0.1 mg/gram) cream 0.5 g vaginal 2XW PRN (Reason: UTI prevention) Qty: 42.5 0RF Rx Instructions: Apply thin layer periurethra quetiapine 50 mg tablet 50 mg PO .COMPLEX MDD 100mg Qty: 120 3RF Rx Instructions: 50 mg orally every night; may take an extra dose as needed for difficulty sleeping; furosemide [Lasix] 20 mg tablet 20 mg PO QAM Qty: 90 3RF ipratropium-albuterol 0.5 mg-3 mg(2.5 mg base)/3 mL solution for nebulization 3 ml inhalation QID Qty: 180 1RF budesonide-formoterol [Symbicort] 80-4.5 mcg/actuation HFA aerosol inhaler 2 puff inhalation BID Qty: 10.2 1RF albuterol sulfate 90 mcg/actuation HFA aerosol inhaler 2 puff INHALATION Q4-6H PRN (Reason: shortness of breath or wheezing) Qty: 18 1RF biotin 500 mcg capsule 1 mg PO BID PreserVision AREDS [id number],160-113-100 [id number] Tablet 2 tab PO DAILY cholecalciferol (vitamin D3) [Vitamin D3] 50 mcg (2,000 unit) capsule 150 mcg PO BID Follow up/Referrals: Ariella Boo DO [Primary Care Provider, Medical] Visit Report/Discharge Packet Stand Alone Forms: Patient Portal/API, Stroke Signs & Symptoms Discharge Data Primary Care Provider: Ariella Boo
--- NOTE | 2025-07-24 08:21 | CM.DPC ---
DCP Discharge Home with HH Per MD, pt is medically stable to discharge home on po meds today with new HH and no identified barriers to discharge. SW secure emailed discharge summary to [facility] to review as referral sent on Monday along with F2F and orders. KATT Vann
[2025-07-24] MEDS: HEPARIN 5,000 UNIT/ML VIAL 5000 UNIT SUBCUT (09:41)
[2025-07-24] MEDS: oxyBUTYnin ER 5 MG TABLET 10 MG PO (09:42)
[2025-07-24] MEDS: PANTOPRAZOLE DR 20 MG TABLET PO (09:42)
[2025-07-24] MEDS: CEFDINIR 300 MG CAPSULE PO (09:42)
[2025-07-24] MEDS: SODIUM CHLORIDE 0.9% FLUSH 10 ML IV (09:43)
[2025-07-24] MEDS: FUROSEMIDE 20 MG TABLET PO (09:43)
--- NOTE | 2025-07-24 11:25 | PC.NURSE ---
Patient has been discharged from the hospital, her ride will be here at 4pm. She is sitting comfortably up in her chair, complained of slight anxiety, zyprexia given. She has some wheezing in bilateral upper lobes and is on RA.
[2025-07-24 13:14] VITALS: PULSE 80; RESP 16; O2SAT 98
== END 2025-07-24 15:22 | disposition home health service (06) | DRG 193 ==
LOC: ED 04:07 → AC 04:29
PROVIDERS: Hospitalist; Admitting Provider Internal Medicine; Emergency Provider Student in an Organized Health Care Education/Training Program; PCP Family Medicine; Referring Provider Student in an Organized Health Care Education/Training Program; Visit Provider Internal Medicine
DX: J18.9 Pneumonia, unspecified organism (principal); I50.33 Acute on chronic diastolic (congestive) heart failure; J96.01 Acute respiratory failure with hypoxia; J44.1 Chronic obstructive pulmonary disease with (acute) exacerbation; J44.0 Chronic obstructive pulmonary disease with (acute) lower respiratory infection; E78.5 Hyperlipidemia, unspecified; R07.9 Chest pain, unspecified; G47.00 Insomnia, unspecified; Z66 Do not resuscitate
CPT/HCPCS: 36415; 71045; 80048; 80053; 81002; 82550; 83690; 83735; 83880; 84484; 85025; 85027; 85610; 85730; 87077; 87086; 87186; 87633; 93005; 94640; 94762; 96365; 96367; 96375; 99284; 99285; J0696; J1644; J1938; J2919; J3475; J7613

== ENCOUNTER 2025-08-10 13:49 | Inpatient (IN) | payer MEDICARE, OTHER, SELFPAY ==
[2025-07-21 04:36] VITALS: BMI 36.0
[2025-08-10] VITALS (18 sets, daily range): BP systolic 91–132; BP diastolic 48–66; PULSE 84–92; RESP 16–47; TEMP 36.6–37.3; O2SAT 91–97; BMI 36.0
--- NOTE | 2025-08-10 14:25 | EKG_ITS ---
[address] [address] Test Date: 2025-08-10 Pat Name: Petty Christy Department: 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
--- NOTE | 2025-08-10 14:25 | DI.RAD.S_ITS ---
PROCEDURE: XR CHEST 1V INDICATIONS: Shortness of breath TECHNIQUE: One view of the chest was acquired. COMPARISON: [facility], CT, CT CHEST WO CON, 06/11/2025, 12:26. [facility], CR, XR CHEST 1V, 07/21/2025, 3:34. [facility], CR, XR CHEST 1V, 07/23/2025, 8:18. FINDINGS: Surgical changes and devices: None. Lungs and pleura: An incomplete inspiratory result is noted, causing a crowded appearance to the lung markings. No focal infiltrates are seen. Minimal interstitial prominence is seen, which are similar to prior. No pneumothorax or significant pleural effusions are seen. Mediastinum: The cardiac contours are at the upper limits of normal. The aorta demonstrates calcification and tortuosity. Bones and chest wall: No suspicious bony lesions. Degenerative changes are seen, particularly involving the shoulders. Overlying soft tissues appear unremarkable. IMPRESSION: Heart size at the upper limits of normal, with minimal interstitial prominence. Please consider mild CHF. Dictated by: Margarito Wright M.D. on 08/10/2025 at 14:16 Approved by: Margarito Wright M.D. on 08/10/2025 at 14:18
[2025-08-10] MEDS: ALBUTEROL/IPRATROPIUM 3 ML AMPUL INH ×3 (14:39→22:35)
[2025-08-10 15:11] LABS: Hematocrit 40.4 % (36-46); Hemoglobin 13.6 g/dL (12.0-16.0); Mean Corpuscular HGB Conc 33.8 % (30-36); Mean Corpuscular Hemoglobin 30.0 PG (26-34); Mean Corpuscular Volume 88.8 fL (80-100); Platelet Count 204 X10^3/uL (150-400)
[2025-08-10 15:15] LABS: Add Manual Diff / Slide Review YES
--- NOTE | 2025-08-10 15:15 | PC.NURSE ---
Patient now resting. Resp. rate dropped down WNLs
[2025-08-10 15:17] LABS: INR 1.1 (0.9-1.3); Prothrombin Time 12.5 SECONDS (9.4-12.5)
[2025-08-10 15:22] LABS: Alanine Aminotransferase 32 IU/L (<35); Albumin 4.6 g/dL (3.5-5.0); Albumin Globulin Ratio 1.6 (1.0-2.8); Alkaline Phosphatase 76 U/L (38-126); Blood Urea Nitrogen 20 mg/dL (7-17); Calcium 9.8 mg/dL (8.4-10.2); Carbon Dioxide 25 mmol/L (22-32); Chloride 97 mmol/L (98-107); Estimated Glomerular Filt Rate > 60 mL/min (>60); Globulin 2.8 g/dL (1.7-4.1); Glucose 101 mg/dL (70-99); HEMOLYSIS 24 (0-50); Potassium 4.2 mmol/L (3.4-5.1); Sodium 133 mmol/L (137-145); Total Protein 7.4 g/dL (6.3-8.2)
[2025-08-10 15:23] LABS: Lactate (Lactic Acid) 1.9 mmol/L (0.7-2.1)
[2025-08-10 15:32] LABS: Band Neutrophils Percent 12.0 % (3-7); Lymphocytes Percent Manual 2.0 % (25-45); Monocytes Percent Manual 5.0 % (2-11); Neutrophils Absolute Manual 26784 /uL (3000-5900); RBC Morphology Normal Morphology; Segmented Neutrophils Percent 81.0 % (38-70); Total Cells Counted 100
[2025-08-10 15:34] LABS: NT-proBNP (BNP-Adult 18+) 492 pg/mL (<450); Toxic Vacuolation Present; Troponin I 0.015 ng/mL (0.01-0.034)
--- NOTE | 2025-08-10 15:44 | ED.SOB ---
HPI - SOB/Dyspnea General Chief Complaint: Shortness of Breath/Dyspnea Stated Complaint: SOB, wheezing, RT leg (knee to ankle) painful Time Seen by Provider: 08/10/25 15:43 Source: patient, RN notes reviewed and old records reviewed Mode of arrival: Wheelchair Limitations: no limitations History of Present Illness HPI Narrative: 89-year-old female with a history of COPD on O2, asthma, dyslipidemia, CHF who was admitted 9024 through 07/24/2025 for acute hypoxic respiratory failure secondary to COPD and acute on chronic CHF patient was discharged home on oral steroid, antibiotics and diuretics. She states she was feeling improved states she completed her medications including her antibiotics. Was recently diagnosed with a UTI in his on her 3rd or 4th day of nitrofurantoin. She states yesterday started having pain in her right leg particularly in the calf with some redness but did not appreciate any swelling. States it was painful to walk and was up at about 3:00 a.m. in the morning and had difficulty ambulating had to call EMS for lift assist. She has noticed some shortness of breath and chest pain that started today. She has felt feverish. She denies cough. She denies nausea or vomiting. She denies any issues with bowel movements. No abdominal back or flank pain. She denies any worsening symptoms but still has some persistent dysuria with urination. Notes prior bilateral hip surgery and knee replacements. Denies any drug allergies. States no history of blood clots when her dad had blood clots she does not take any anticoagulation. No tobacco, alcohol or recreational drugs. Dr. Villeda is her primary care physician. She is scheduled to follow up with pulmonology. She notes DuoNebs that she received here in the department were very helpful for her breathing. Related Data Home Medications ?Medication ?Instructions ?Recorded ?Confirmed vitamins A,C,P-qgai-fifydo 2,148 2 tab PO DAILY 08/26/20 08/10/25 mcg-113 mg-45 mg-17.4 mg tablet (PreserVision AREDS) cholecalciferol (vitamin D3) 50 150 mcg PO BID 08/07/24 08/10/25 mcg (2,000 unit) capsule (Vitamin D3) biotin 500 mcg capsule 1 mg PO BID 04/14/25 08/10/25 lorazepam 0.5 mg tablet 0.5 mg PO Q12H 08/10/25 08/10/25 Previous Rx's ?Medication ?Instructions ?Recorded Disabled Parking Permit #1 ea 02/21/22 meloxicam 15 mg tablet 15 mg PO DAILY #90 tabs 01/09/25 olanzapine 2.5 mg tablet 2.5 mg PO DAILY #90 tabs 01/09/25 omeprazole 20 mg capsule,delayed 20 mg PO DAILY #90 caps 01/09/25 release simvastatin 40 mg tablet 40 mg PO BEDTIME #90 tabs 01/09/25 tolterodine 4 mg capsule,extended 4 mg PO DAILY #90 caps 01/09/25 release 24 hr trazodone 50 mg tablet 25 mg (1/2 x 50 mg) PO BEDTIME PRN 01/09/25 insomnia #45 tabs albuterol sulfate 90 mcg/actuation 2 puff inhalation Q4-6H PRN 04/08/25 aerosol inhaler shortness of breath or wheezing #18 grams ipratropium 0.5 mg-albuterol 3 mg 3 ml inhalation QID #180 mL 04/08/25 (2.5 mg base)/3 mL nebulization soln sertraline 100 mg tablet See Rx Instructions .Route 04/10/25 .COMPLEX #135 tabs estradiol 0.01% (0.1 mg/gram) 0.5 g vaginal 2XW PRN UTI 04/18/25 vaginal cream prevention #42.5 grams furosemide 20 mg tablet (Lasix) 20 mg PO QAM #90 tabs 06/11/25 quetiapine 50 mg tablet 50 mg PO .COMPLEX #120 tabs 06/11/25 Allergies Allergy/AdvReac Type Severity Reaction Status Date / Time digoxin (DIGOXIN) Allergy Mild LIGHTHEADED Verified 08/10/25 19:07 latex (LATEX) Allergy Mild Verified 08/10/25 19:07 silver Allergy Mild BLISTERS Verified 08/10/25 19:07 (FROM TEGADERM MESH) sulfamethoxazole (From Allergy Mild Rash Verified 08/10/25 19:07 Bactrim) trimethoprim (From Bactrim) Allergy Mild Rash Verified 08/10/25 19:07 cephalexin AdvReac Nausea Verified 08/10/25 19:07 fluconazole AdvReac Nausea Verified 08/10/25 19:07 Review of Systems Review of Systems ROS Unobtainable: All systems reviewed & are unremarkable except as noted in HPI and below Patient History Medical History Pneumonia involving right lung (~07/2025) Asthma Acute exacerbation of chronic obstructive pulmonary disease (~07/2024) Fall Chronic prescription benzodiazepine use Pulmonary nodule less than 6 mm in diameter with low risk for malignant neoplasm (~07/2020) Peripheral neuropathy Bronchitis Abnormal LFTs Restrictive lung disease Dysphagia, pharyngeal phase Obesity (BMI 30-39.9) Urinary incontinence (2004) Foot pain, left (2009) Ankle pain, left (2009) Lumbar spinal stenosis Cataract (03/2014) Hyperlipidemia Hypothyroidism 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) Essential tremor (05/19/15) Urge incontinence of urine (05/14/15) Chronic lumbar radiculopathy (08/26/14) Chronic left shoulder pain (12/25/17) Relationship problem with family member Internal hemorrhoids (~08/2020) Feared complaint without diagnosis Allergy to sulfa drugs Tinnitus (~2014) Chicken pox Mumps (1966) Surgical History History of esophagogastroduodenoscopy (EGD) (~03/2016) Anesthesia H/O abdominal surgery (03/2007) History of vaginal surgery (~2008) History of partial knee replacement (2007) History of partial knee replacement (2003) History of hip replacement (2001) History of hip replacement (1996) Status post hysterectomy with oophorectomy (1969) Family History Father Heart disease Pulmonary embolism Grandmother Heart disease Heart attack Sister Cancer Melanoma Grandmother No problems noted. Mother Dementia Grandfather Pneumonia Grandfather Dementia Daughter Depression Social History marital status: details: 07/22/2007 number of children: 1 household members: none lives independently: Yes housing: condominium pets and animals: No occupational status: previously employed Smoking Status: Never smoker alcohol intake: never substance use type: does not use Smoking Status: Never smoker alcohol intake frequency: holidays/special occasions only Exam Narrative Exam Narrative: GENERAL: Alert and oriented x three, elderly female in moderate distress HEENT: Head normocephalic, atraumatic, EOMI, pupils reactive, face symmetric, moist mucous membranes NECK: Supple, full range of motion CARDIOVASCULAR: Regular rate and rhythm without murmurs, rubs or gallops. No JVD. Patient has tenderness with calf squeeze on the right. Has normal range of motion. No appreciable erythema. Lower extremities do not appear to be swollen in comparison to right versus left. RESPIRATORY: Breath sounds equal bilaterally, patient had some audible wheeze initially on arrival, no wheezes rales or rhonchi after DuoNeb. No tachypnea. Speaks in full sentences. ABDOMEN: Soft, nontender. Normoactive bowel sounds all 4 quadrants. No guarding or rebound, rigidity, no mass : No CVA tenderness EXTREMITIES: Normal range of motion, pulses equal bilateral lower extremities. Neurovascularly intact NEUROLOGICAL: Cranial nerves II through XII grossly intact. Moving all extremities SKIN: Warm, dry, no petechiae, no rashes or lesions. Initial Vital Signs Initial Vital Signs: Vital Signs Temperature 99.1 F 08/10/25 14:14 Pulse Rate 85 08/10/25 14:14 Respiratory Rate 24 08/10/25 14:14 Blood Pressure 102/59 L 08/10/25 14:14 Pulse Oximetry 95 08/10/25 14:14 Oxygen Delivery Method Room Air 08/10/25 14:14 Course Orders Ordered: ED Orders 08/10/25 14:05 Blood Culture Stat 08/10/25 14:25 XR chest 1V Stat EKG-12 Lead Stat Measure peak expiratory flow STAT RT Consult Eval and Treat STAT 08/10/25 15:00 Complete Blood Count AUTO DIFF Stat Comprehensive Metabolic Panel Stat Lactate (Lactic Acid) Stat NT-proBNP (BNP-Adult 18+) Stat Procalcitonin Stat Prothrombin Time INR Stat Troponin I Stat 08/10/25 15:59 US periph venous low extrem bi Stat 08/10/25 16:00 CT angio chest PE protocol Stat 08/10/25 17:36 UA Complete [Urinalysis and Microscopic] Stat Urine Culture Stat Acetaminophen (Acetaminophen 325 Mg Tablet) 650 mg PO Q6H PRN PRN Reason: Fever/Mild Pain (1-3) Albuterol (Albuterol 2.5 Mg/3 Ml Neb (Adult)) 2.5 mg INH [id number] PRN PRN Reason: Shortness Of Breath Albuterol (Albuterol 2.5 Mg/3 Ml Neb (Adult)) 2.5 mg INH Q4H PRN PRN Reason: Shortness Of Breath Or Wheezin Albuterol (Albuterol 2.5 Mg/3 Ml Neb (Adult)) 2.5 mg INH Q4HRWA [facility] Last Admin: 08/10/25 20:00 Dose: Not Given Documented By: WLisa Albuterol/Ipratropium (Albuterol/Ipratropium 3 Ml Ampul) 3 ml INH RTQ4HR PRN PRN Reason: Shortness Of Breath Last Admin: 08/10/25 14:39 Dose: 3 ml Documented By: SAT Albuterol/Ipratropium (Albuterol/Ipratropium 3 Ml Ampul) 3 ml INH QID [facility] Last Admin: 08/10/25 20:00 Dose: 3 ml Documented By: [place] Atorvastatin Calcium (Atorvastatin 20 Mg Tablet) 20 mg PO BEDTIME [facility] Last Admin: 08/10/25 21:12 Dose: 20 mg Documented By: TD Budesonide (Budesonide 0.5 Mg/2 Ml Neb) 0.5 mg INH RTBID [facility] Last Admin: 08/10/25 20:00 Dose: 0.5 mg Documented By: [place] Heparin Sodium (Porcine) (Heparin 5,000 Unit/Ml Vial) 5,000 unit SUBCUT BID [facility] Last Admin: 08/10/25 21:11 Dose: 5,000 unit Documented By: TD Ceftriaxone Sodium 1,000 mg/ (Sodium Chloride) 100 mls @ 200 mls/hr IV Q24H [facility] Last Infusion: 08/10/25 22:07 Dose: Infused Documented By: Admin: 08/10/25 21:22 Dose: 200 mls/hr Documented By: TD Lutein (Vit C/E/Zn/Coppr/Lutein/Zeaxan Capsule) 2 cap PO DAILY [facility] Naloxone HCl (Naloxone 0.4 Mg/Ml Vial) 0.2 mg IV Q2MIN PRN PRN Reason: Opiate Reversal Non-Formulary Medication (Biotin) 1 mg PO BID [facility] Last Admin: 08/10/25 21:12 Dose: Not Given Documented By: TD Olanzapine (Olanzapine 2.5 Mg Tablet) 2.5 mg PO DAILY [facility] Ondansetron HCl (Ondansetron 4 Mg/2 Ml Inj) 4 mg IV Q8HR PRN PRN Reason: Nausea And Vomiting Oxybutynin Chloride (Oxybutynin Er 5 Mg Tablet) 10 mg PO DAILY [facility] Pantoprazole Sodium (Pantoprazole Dr 20 Mg Tablet) 20 mg PO 0600 [facility] Quetiapine Fumarate (Quetiapine 25 Mg Tablet) 50 mg PO BEDTIME [facility] Last Admin: 08/10/25 21:11 Dose: 50 mg Documented By: MARCUS Sertraline HCl (Sertraline 50 Mg Tablet) 150 mg PO DAILY [facility] Trazodone HCl (Trazodone 50 Mg Tablet) 25 mg PO BEDTIME PRN PRN Reason: Insomnia Discontinued Medications Piperacillin Sod/Tazobactam (Sod 4.5 gm/ Sodium Chloride) 100 mls @ 200 mls/hr IV NOW ONE Stop: 08/10/25 16:00 Last Infusion: 08/10/25 17:02 Dose: Infused Documented By: Admin: 08/10/25 16:19 Dose: 200 mls/hr Documented By: LANE Sodium Chloride (Normal Saline 0.9%) 500 mls @ 1,000 mls/hr IV BOLUS ONE Stop: 08/10/25 18:04 Last Infusion: 08/10/25 18:13 Dose: Infused Documented By: Admin: 08/10/25 17:37 Dose: 1,000 mls/hr Documented By: CORAL Methylprednisolone (Methylprednisolone Succ 125 Mg/2 Ml Vial) 125 mg IV NOW ONE Stop: 08/10/25 16:01 Last Admin: 08/10/25 16:06 Dose: 125 mg Documented By: LANE Quetiapine Fumarate (Quetiapine 25 Mg Tablet) 50 mg PO .COMPLEX [facility] Sertraline HCl (Sertraline 50 Mg Tablet) 0 mg PO .COMPLEX [facility] Vital Signs Vital signs: Vital Signs - 8 hr 08/10/25 15:15 08/10/25 15:30 08/10/25 15:30 Pulse Rate 85 Respiratory Rate 16 41 H Blood Pressure 119/60 Pulse Oximetry 91 08/10/25 16:00 08/10/25 16:28 08/10/25 16:28 Pulse Rate 87 89 Respiratory Rate 42 H 47 H Blood Pressure 116/55 L Pulse Oximetry 94 94 08/10/25 16:30 08/10/25 16:31 08/10/25 16:31 Pulse Rate 87 88 Respiratory Rate 46 H 43 H Blood Pressure 110/59 L Pulse Oximetry 93 91 08/10/25 17:00 08/10/25 17:00 08/10/25 17:30 Pulse Rate 86 Respiratory Rate Blood Pressure 101/59 L 100/56 L Pulse Oximetry 91 08/10/25 17:30 Pulse Rate 86 Respiratory Rate 34 H Blood Pressure Pulse Oximetry 91 MDM - SOB/Dyspnea Lab Data 08/10/25 15:00 08/10/25 15:00 Labs: Lab Results 08/10/25 08/10/25 Range/Units 15:00 17:36 WBC 28.8 H (4.5-11.0) X10^3/uL RBC 4.55 (4.0-5.2) X10^6/uL Hgb 13.6 (12.0-16.0) g/dL Hct 40.4 (36-46) % MCV 88.8 (80-100) fL MCH 30.0 (26-34) PG MCHC 33.8 (30-36) % RDW 14.7 (11.6-14.8) % Plt Count 204 (150-400) X10^3/uL Neut % (Auto) Not Reportable Lymph % (Auto) Not Reportable [place] % (Auto) Not Reportable Eos % (Auto) Not Reportable Baso % (Auto) Not Reportable Lymph # (Auto) Not Reportable [place] # (Auto) Not Reportable Baso # (Auto) Not Reportable Total Counted 100 Seg Neutrophils % 81.0 H (38-70) % Band Neutrophils % 12.0 H (3-7) % Lymphocytes % (Manual) 2.0 L (25-45) % Monocytes % (Manual) 5.0 (2-11) % Neutrophils # (Manual) 20192 H (9848-2326) /uL Toxic Vacuolation Present H RBC Morphology Normal morphology PT 12.5 (9.4-12.5) SECONDS INR 1.1 (0.9-1.3) Sodium 133 L (137-145) mmol/L Potassium 4.2 (3.4-5.1) mmol/L Chloride 97 L (98-107) mmol/L Carbon Dioxide 25 (22-32) mmol/L BUN 20 H (7-17) mg/dL Creatinine 0.84 (0.52-1.04) mg/dL Estimated GFR > 60 (>60) mL/min BUN/Creatinine Ratio 23.8 H (6-22) Glucose 101 H (70-99) mg/dL Lactate 1.9 (0.7-2.1) mmol/L Calcium 9.8 (8.4-10.2) mg/dL Total Bilirubin 1.3 (0.2-1.3) mg/dL AST 31 (14-36) IU/L ALT 32 (<35) IU/L Alkaline Phosphatase 76 (38-126) U/L Troponin I 0.015 (0.01-0.034) ng/mL NT-Pro-B Natriuret Pep 492 H (<450) pg/mL Total Protein 7.4 (6.3-8.2) g/dL Albumin 4.6 (3.5-5.0) g/dL Globulin 2.8 (1.7-4.1) g/dL Albumin/Globulin Ratio 1.6 (1.0-2.8) Procalcitonin 0.329 (<0.5) ng/mL Urine Color Yellow Urine Appearance Clear Urine pH 6.0 (4.5-8.0) Ur Specific [place] <=1.005 (1.000-1.035) Urine Protein Negative (Negative) Urine Glucose (UA) Negative (Negative) g/dL Urine Ketones Negative (NEGATIVE) Urine Occult Blood Negative (Negative) Urine Nitrate Positive H (Negative) Urine Bilirubin Negative (NEGATIVE) Urine Urobilinogen 0.2 (0.2) E.U./dL Ur Leukocyte Esterase 2+ H (NEGATIVE) Urine RBC 0-1/hpf (0-5/HPF) Urine WBC 10-30/hpf H (0-5/HPF) Ur Squamous Epith Cells None seen (0-5/HPF) Ur Transition Epith Cell 0-1/hpf (0-5/HPF) Urine Bacteria Moderate (10-30) H (None) Ur Culture Indicated? Specimen cultured Vol Urine Centrifuged 10ml (spun) ECG Data Attestation: I personally reviewed and interpreted this ECG as follows: Interpretation: Sinus rhythm rate 87 UT 156 QRS of 116 QTC of 423. Nonspecific change. MDM Narrative Medical decision making narrative: EKG shows sinus rhythm nonspecific change from prior on 07/21/2025. Labs show white count of 28 she was 9.9 on 07/24/2025 and was as high as 14 during her hospital stay. Normal hemoglobin and platelets with 81% segmented neutrophils 12% [place] [address]. INR 1.1. X1 33 was 135 on 07/24, chloride 97 potassium is 4.2, BUN 20 creatinine 0.84 glucose is 101 lactate 1.9 LFTs are normal troponin 0.015 with a BNP of 492. Patient was 392 on her hospitalization here on 07/21/2025. Procalcitonin is negative. UA is positive for nitrates 2+ leuks 10-30 WBCs moderate bacteria. Blood cultures obtained Chest x-ray heart size upper limits of normal with minimal interstitial prominence consider mild CHF no focal infiltrates but there is some loss at the DVT ultrasound no findings of DVT in either lower extremity. CT angio no PE, no acute cardiopulmonary process, significant bilateral shoulder degenerative change. Moderate coronary calcification left liver cyst. Patient received 125 of methylprednisolone, DuoNeb, Zosyn. Patient's blood pressure dropped somewhat was given a 500 cc bolus as she has had recent history of CHF. Spoke with Dr. Tinoco @ [phone] accepts for observation. UTI, meets sepsis criteria. But did not give an initial 30 cc/kilos bolus with a history of CHF. Discharge Plan Departure Patient Disposition: Admitted as Observation Clinical Impression: UTI (urinary tract infection), Sepsis, Acute exacerbation of chronic obstructive pulmonary disease Admit Date/Time: 08/10/25 17:56 Admit Provider: Gualberto Tinoco
--- NOTE | 2025-08-10 15:59 | DI.US.S_ITS ---
PROCEDURE: US PERIPH VENOUS LOW EXTREM BI INDICATIONS: R leg pain, redness, recent hospitalization TECHNIQUE: Real-time imaging, as well as color and pulse Doppler interrogation, were performed of the deep veins of both legs from the inguinal ligament to the popliteal fossa, with documentation of the visualized calf veins. COMPARISON: [facility], CT, CT ANGIO CHEST PE PROTOCOL, 08/10/2025, 16:07. [facility], , US PERIP VENOUS LOW EXTREM BI, 04/11/2023, 15:32. FINDINGS: Right: The common femoral, femoral, popliteal, and the visualized calf veins are normally compressible, and free of intraluminal thrombus. Color and pulse Doppler demonstrate normal phasic intravascular flow. There is normal augmentation response to distal compression maneuver. Left: The common femoral, femoral, popliteal, and the visualized calf veins are normally compressible, and free of intraluminal thrombus. Color and pulse Doppler demonstrate normal phasic intravascular flow. There is normal augmentation response to distal compression maneuver. IMPRESSION: No findings of deep venous thrombosis in either lower extremity. Dictated by: Margarito Wright M.D. on 08/10/2025 at 16:42 Approved by: Margarito Wright M.D. on 08/10/2025 at 16:42
--- NOTE | 2025-08-10 16:00 | DI.CT.S_ITS ---
PROCEDURE: CT ANGIO CHEST PE PROTOCOL INDICATIONS: sob, recent pna, hx copd TECHNIQUE: After the administration of intravenous contrast, 2 mm thick sections acquired from the pulmonary apices to the posterior costophrenic angles. 3-dimensional maximum intensity projection (MIP) coronal and sagittal reformats were then acquired through the thorax. For radiation dose reduction, the following was used: automated exposure control, adjustment of mA and/or kV according to patient size. COMPARISON: [facility], CT, CT CHEST ABD PEL W CON, 04/09/2025, 13:30. [facility], CR, XR CHEST 1V, 08/10/2025, 14:51. FINDINGS: Image quality: Diagnostic. Pulmonary arteries: Pulmonary arteries are normal in size, and demonstrate no intraluminal filling defects to suggest central pulmonary embolism. Lower Neck: No enlarged lymph nodes. Thyroid: No thyroid nodules which require sonographic follow up, per consensus guidelines. Axillae: No enlarged lymph nodes. Chest Wall: Unremarkable. Bones: Bony degenerative changes are seen, including involving both shoulders. Lungs and Pleura: No pneumothorax or pleural effusions. No consolidation or suspicious nodules. Heart: Heart size is normal. No pericardial effusion. Moderate coronary calcification is seen. Thoracic Vessels: No aortic aneurysm. Mediastinum and [place]: No enlarged lymph nodes. Esophagus: No wall thickening. No hiatal hernia. Upper Abdomen: A left liver cyst is again seen. Visualized upper abdomen solid organs and bowel loops appear normal. IMPRESSION: No pulmonary embolus. No acute cardiopulmonary process. Additional findings: Significant bilateral shoulder degenerative change Moderate coronary calcification Left liver cyst Dictated by: Margarito Wright M.D. on 08/10/2025 at 15:39 Approved by: Margarito Wright M.D. on 08/10/2025 at 15:42
[2025-08-10] MEDS: methylPREDNISolone succ 125 MG/2 ML VIAL IV (16:06)
[2025-08-10] MEDS: PIPERACILLIN/TAZO 4.5 GM in SODIUM CHLORIDE 0.9% 100 ML IV (16:19)
[2025-08-10 16:40] LABS: Procalcitonin 0.329 ng/mL (<0.5)
[2025-08-10] MEDS: SODIUM CHLORIDE 0.9% 500 ML 1000 ML IV (17:37)
[2025-08-10 17:39] LABS: Appearance Urine UA CLEAR; Bilirubin Urine UA NEGATIVE (NEGATIVE); Color Urine UA YELLOW; Glucose Urine UA NEGATIVE (Negative); Ketones Urine UA NEGATIVE (NEGATIVE); Leukocyte Esterase Urine UA 2+ (NEGATIVE); Nitrite Urine UA POSITIVE (Negative); Occult Blood Urine UA NEGATIVE (Negative); Protein Urine UA NEGATIVE (Negative); Specific Gravity Urine UA <=1.005 (1.000-1.035); Urobilinogen Urine UA 0.2 E.U./dL (0.2)
[2025-08-10 17:40] LABS: pH Urine UA 6.0 (4.5-8.0)
[2025-08-10 17:49] LABS: Culture Indicated Urine Specimen Cultured
--- NOTE | 2025-08-10 18:11 | P.HP_ITS ---
History of Present Illness History of Present Illness Date Patient Seen: 08/10/25 Chief complaint: SOB, wheezing, RT leg (knee to ankle) painful Narrative: Chief complaint: Malaise fatigue urinary burning and leg pain with evidence of UTI and leukocytosis History of present illness: 08/10: 89-year-old female recently discharged for congestive heart failure and COPD exacerbation and did quite well until about 3 days ago started developing dysuria fatigue leg pain and weakness dyspnea with activity with rigors and chills. Patient had some leftover Macrobid and started taking that but her symptoms continued to escalate and came to the emergency room 08/10. Findings in the emergency room significant for leukocytosis white count 77045 with 81% neutrophils urinalysis was demonstrates pyuria nitrates and bacteriuria. Remainder for metabolic and hemogram were unremarkable CT imaging of the chest did not show infiltrate pulmonary edema pulmonary embolus and venous Dopplers of both lower extremities were clear for deep venous thrombosis Patient was admitted for UTI with probable early sepsis as started on ceftriaxone after blood culture drawn. Past medical history significant for: COPD Morbid obesity Chronic diastolic congestive heart failure Review of systems: No palpitations No nausea vomiting diarrhea No paresthesia or paresis Physical exam: Elderly female very pleasant no acute distress HEENT unremarkable Heart sounds distant Lung sounds distant Abdomen benign Extremities chronic 2+ edema x4 Neuro nonfocal For objective laboratory and imaging please see the bottom of the note Assessment and plan: Signs assessment suggestive of UTI with pyuria bacteria and leukocyte esterase with urinary symptoms and a white count [id number] * Blood cultures urine culture * Ceftriaxone * Supportive care Chronic medical conditions: * COPD * Morbid obesity * Chronic diastolic congestive heart failure DVT prophylaxis: * Subcutaneous heparin Code status: * Do not resuscitate Disposition: * Ms. For observation if does not improve clinically in 24 hours we will switch to inpatient 55 minutes were involved in the evaluation of this patient including [id number] evaluation physical examination review of records physical examination of the patient discussion with ER provider and treatment team review of objective laboratory and imaging [facility] Medical History Pneumonia involving right lung (~07/2025) Asthma Acute exacerbation of chronic obstructive pulmonary disease (~07/2024) Fall Chronic prescription benzodiazepine use Pulmonary nodule less than 6 mm in diameter with low risk for malignant neoplasm (~07/2020) Peripheral neuropathy Bronchitis Abnormal LFTs Restrictive lung disease Dysphagia, pharyngeal phase Obesity (BMI 30-39.9) Urinary incontinence (2004) Foot pain, left (2009) Ankle pain, left (2009) Lumbar spinal stenosis Cataract (03/2014) Hyperlipidemia Hypothyroidism 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) Essential tremor (05/19/15) Urge incontinence of urine (05/14/15) Chronic lumbar radiculopathy (08/26/14) Chronic left shoulder pain (12/25/17) Relationship problem with family member Internal hemorrhoids (~08/2020) Feared complaint without diagnosis Allergy to sulfa drugs Tinnitus (~2014) Chicken pox Mumps (1966) Surgical History History of esophagogastroduodenoscopy (EGD) (~03/2016) Anesthesia H/O abdominal surgery (03/2007) History of vaginal surgery (~2008) History of partial knee replacement (2007) History of partial knee replacement (2003) History of hip replacement (2001) History of hip replacement (1996) Status post hysterectomy with oophorectomy (1969) Family History Father Heart disease Pulmonary embolism Grandmother Heart disease Heart attack Sister Cancer Melanoma Grandmother No problems noted. Mother Dementia Grandfather Pneumonia Grandfather Dementia Daughter Depression Social History marital status: details: 07/22/2007 number of children: 1 household members: none lives independently: [facility] pets and animals: No occupational status: previously employed Smoking Status: Never smoker alcohol intake: never substance use type: does not use Meds Home Medications and Allergies Home Medications ?Medication ?Instructions ?Recorded ?Confirmed ?Type vitamins A,C,E-decf-xcaovv 2,148 2 tab PO DAILY 07/31/25 History mcg-113 mg-45 mg-17.4 mg tablet (PreserVision AREDS) Disabled Parking Permit #1 ea 02/21/22 07/31/25 Rx cholecalciferol (vitamin D3) 50 150 mcg PO BID 4 07/31/25 History mcg (2,000 unit) capsule (Vitamin D3) meloxicam 15 mg tablet 15 mg PO DAILY #90 tabs 02/06/0607/31/25 Rx olanzapine 2.5 mg tablet 2.5 mg PO DAILY #90 tabs 07/31/25 Rx omeprazole 20 mg capsule,delayed 20 mg PO DAILY #90 ca ps 01/09/25 07/31/25 Rx release simvastatin 40 mg tablet 40 mg PO BEDTIME #90 tabs 07/31/25 Rx tolterodine 4 mg capsule,extended 4 mg PO DAILY #90 ca ps 01/09/25 07/31/25 Rx release 24 hr trazodone 50 mg tablet 25 mg (1/2 x 50 mg) PO BEDTI ME PRN 01/09/25 07/31/25 Rx insomnia #45 tabs albuterol sulfate 90 mcg/actuation 2 puff inhalation Q 4-6H PRN 04/08/25 07/31/25 Rx aerosol inhaler shortness of breath or wheez ing #18 grams budesonide-formoterol HFA 80 2 puff inhalation BID #10 .2 grams 04/08/25 07/31/25 Rx mcg-4.5 mcg/actuation aerosol inhaler (Symbicort) ipratropium 0.5 mg-albuterol 3 mg 3 ml inhalation QID #180 mL 04/08/25 07/31/25 Rx (2.5 mg base)/3 mL nebulization soln sertraline 100 mg tablet See Rx Instructions .Route 0 04/10/25 07/31/25 Rx .COMPLEX #135 tabs biotin 500 mcg capsule 1 mg PO BID 04/14/25 5 History estradiol 0.01% (0.1 mg/gram) 0.5 g vaginal 2XW PRN UT I 04/18/25 07/31/25 Rx vaginal cream prevention #42.5 grams furosemide 20 mg tablet (Lasix) 20 mg PO QAM #90 tabs 06/11/25 07/31/25 Rx quetiapine 50 mg tablet 50 mg PO .COMPLEX #120 tabs 06/11/25 07/31/25 Rx cefdinir 300 mg capsule 300 mg PO BID #14 caps 06/1807/31/25 Rx cefdinir 300 mg capsule 300 mg PO BID #10 caps 07/2407/31/25 Rx prednisone 10 mg tablets in a dose See Rx Instructions PO .COMPLEX 07/24/25 07/31/25 Rx pack #48 ea Allergies Allergy/AdvReac Type Severity Reaction Status Date / Time digoxin (DIGOXIN) Allergy Mild LIGHTHEADED Verified 08/10/25 14:23 latex (LATEX) Allergy Mild Verified 08/10/25 14:23 silver Allergy Mild BLISTERS Verified 08/10/25 14:23 (FROM TEGADERM MESH) sulfamethoxazole (From Allergy Mild Rash Verified 08/10/25 14:23 Bactrim) trimethoprim (From Bactrim) Allergy Mild Rash Verified 08/10/25 14:23 cephalexin AdvReac Nausea Verified 08/10/25 14:23 fluconazole AdvReac Nausea Verified 08/10/25 14:23 Exam Vital Signs (past 8 hours): - 08/10/25 14:14 08/10/25 14:33 08/10/25 14:35 Temperature 99.1 F Pulse Rate 85 Respiratory Rate 24 Blood Pressure 102/59 L 132/60 Pulse Oximetry 95 96 Oxygen Delivery Method Room Air Oxygen Flow Rate 08/10/25 14:35 08/10/25 14:51 08/10/25 15:00 Temperature Pulse Rate 91 H 84 Respiratory Rate 44 H 22 Blood Pressure 128/66 Pulse Oximetry 96 95 Oxygen Delivery Method Oxygen Flow Rate 0 08/10/25 15:00 08/10/25 15:15 08/10/25 15:30 Temperature Pulse Rate 84 Respiratory Rate 31 H 16 Blood Pressure 119/60 Pulse Oximetry 96 Oxygen Delivery Method Oxygen Flow Rate 08/10/25 15:30 08/10/25 16:00 08/10/25 16:28 Temperature Pulse Rate 85 87 Respiratory Rate 41 H 42 H Blood Pressure 116/55 L Pulse Oximetry 91 94 Oxygen Delivery Method Oxygen Flow Rate 08/10/25 16:28 08/10/25 16:30 08/10/25 16:31 Temperature Pulse Rate 89 87 Respiratory Rate 47 H 46 H Blood Pressure 110/59 L Pulse Oximetry 94 93 Oxygen Delivery Method Oxygen Flow Rate 08/10/25 16:31 08/10/25 17:00 08/10/25 17:00 Temperature Pulse Rate 88 86 Respiratory Rate 43 H Blood Pressure 101/59 L Pulse Oximetry 91 91 Oxygen Delivery Method Oxygen Flow Rate 08/10/25 17:30 08/10/25 17:30 08/10/25 18:00 Temperature Pulse Rate 86 91 H Respiratory Rate 34 H 35 H Blood Pressure 100/56 L Pulse Oximetry 91 91 Oxygen Delivery Method Oxygen Flow Rate 08/10/25 18:00 Temperature Pulse Rate Respiratory Rate Blood Pressure 108/63 Pulse Oximetry Oxygen Delivery Method Oxygen Flow Rate Oxygen Delivery Method Room Air Oxygen Flow Rate 0 Objective Labs 08/10/25 15:00 08/10/25 15:00 Labs: Laboratory Results - last 24 hr 08/10/25 08/10/25 15:00 17:36 WBC 28.8 H RBC 4.55 Hgb 13.6 Hct 40.4 MCV 88.8 MCH 30.0 MCHC 33.8 RDW 14.7 Plt Count 204 Neut % (Auto) Not Reportable Lymph % (Auto) Not Reportable [place] % (Auto) Not Reportable Eos % (Auto) Not Reportable Baso % (Auto) Not Reportable Lymph # (Auto) Not Reportable [place] # (Auto) Not Reportable Baso # (Auto) Not Reportable Total Counted 100 Seg Neutrophils % 81.0 H Band Neutrophils % 12.0 H Lymphocytes % (Manual) 2.0 L Monocytes % (Manual) 5.0 Neutrophils # (Manual) 45787 H Toxic Vacuolation Present H RBC Morphology Normal morphology PT 12.5 INR 1.1 Sodium 133 L Potassium 4.2 Chloride 97 L Carbon Dioxide 25 BUN 20 H Creatinine 0.84 Estimated GFR > 60 BUN/Creatinine Ratio 23.8 H Glucose 101 H Lactate 1.9 Calcium 9.8 Total Bilirubin 1.3 AST 31 ALT 32 Alkaline Phosphatase 76 Troponin I 0.015 NT-Pro-B Natriuret Pep 492 H Total Protein 7.4 Albumin 4.6 Globulin 2.8 Albumin/Globulin Ratio 1.6 Procalcitonin 0.329 Urine Color Yellow Urine Appearance Clear Urine pH 6.0 Ur Specific [place] <=1.005 Urine Protein Negative Urine Glucose (UA) Negative Urine Ketones Negative Urine Occult Blood Negative Urine Nitrate Positive H Urine Bilirubin Negative Urine Urobilinogen 0.2 Ur Leukocyte Esterase 2+ H Urine RBC 0-1/hpf Urine WBC 10-30/hpf H Ur Squamous Epith Cells None seen Ur Transition Epith Cell 0-1/hpf Urine Bacteria Moderate (10-30) H Ur Culture Indicated? Specimen cultured Vol Urine Centrifuged 10ml (spun) Assessment & Plan Time-Based Coding :: [TOTAL MINUTES] spent with patient and on the chart (including review of chart, obtaining history, exam, reviewing outside data, placing orders, documenting exam and treatment plan, and counseling patient) on [DATE].
[2025-08-10] MEDS: BUDESONIDE 0.5 MG/2 ML NEB INH (20:00)
[2025-08-10] MEDS: HEPARIN 5,000 UNIT/ML VIAL 5000 UNIT SUBCUT (21:11)
[2025-08-10] MEDS: ATORVASTATIN 20 MG TABLET PO (21:12)
[2025-08-11] VITALS (11 sets, daily range): BP systolic 88–115; BP diastolic 50–63; PULSE 77–86; RESP 16–20; TEMP 36.1–36.6; O2SAT 91–100
[2025-08-11] MEDS: PANTOPRAZOLE DR 20 MG TABLET PO (05:40)
[2025-08-11] MEDS: ALBUTEROL/IPRATROPIUM 3 ML AMPUL INH ×3 (09:23→19:28)
[2025-08-11] MEDS: BUDESONIDE 0.5 MG/2 ML NEB INH ×2 (09:23→19:27)
[2025-08-11] MEDS: SERTRALINE 50 MG TABLET 150 MG PO (09:47)
[2025-08-11] MEDS: oxyBUTYnin ER 5 MG TABLET 10 MG PO (09:48)
[2025-08-11] MEDS: HEPARIN 5,000 UNIT/ML VIAL 5000 UNIT SUBCUT ×2 (09:51→21:09)
[2025-08-11] MEDS: VIT C/E/ZN/COPPR/LUTEIN/ZEAXAN CAPSULE 2 CAP PO (09:51)
--- NOTE | 2025-08-11 13:10 | CM.DANOTE ---
DCP Assessment Note: Pt is a 89yo female, resident of [place], is admitted for UTI. Hx of CHF, COPD exacerbation. Pt lives in a house alone, has a private caregiver who lives 10 mins away from her. Pt's Primary Care Provider is Dr. Ariella Boo and insurance is Medicare and [employer]. Reviewed chart and discussed with multidisciplinary team pt's medical status and initial discharge needs. Per provider, pt to obtain IV antibiotics and pending urine/blood cultures for final treatment recommendations. Per EMR, pt was admitted on 07/20-07/24 and discharged home with [facility]. Caregiver transported home. DCP met w/patient at bedside; introduced self and role. Patient was found in bed, alert and oriented, cooperative with assessment. Pt confirmed living situation and good support in caregiver, Leatha (ph# [phone]). Pt expressed preference in discharge home with [facility] when cleared. Pt agreeable to working with therapies and following their recommendations. Plan: Pending PT/OT evaluations and recommendation for evolving discharge plans. CM team will follow closely for coordination of discharge plans. PILY Staurt Discharge Planning/Care Management CM Discharge Assessment Start: 08/10/25 18:39 Freq: Status: Active Protocol: Document 08/11/25 13:03 MW (Rec: 08/11/25 13:10 MW [id number]) Discharge Planning Assessment Assigned Discharge KATT [employer] Security Developer Provider Dr. Ariella Boo Insurance Medicare, DPOA/Assigned Delfina Garcia, Daughter Designee Name Contact Information [phone] Advance Directives? Yes: Yes; POLST Advance Directives Yes on File History Provided By Patient,Medical Record Has Patient been No admitted in last 30 days? Prior Living Apartment/Condo Arrangements Household Members none Type of Relies on Others transporation used prior to admit Independent with ADL No 's Is patient alert and Yes oriented? Needs Assistance Grooming,Meal Prep,Managing Medications,Home Chores / With Shopping Caregiver for No Another DME Already Rented / FWW / Walker Owned Patient/Family Home with Home Health Preference Discharge Plan Home with Home Health Transportation Caregiver, Leatha Arrangement Referrals Initiated Home Health If patient plan is Yes home with home health: Has signed face to face form been completed? Review Status In Process Please Provide Date 08/11/25 Initial DC Assessment Was Performed Next Review Type Continued Stay Review
--- NOTE | 2025-08-11 15:18 | P.PN_ITS ---
Subjective Subjective Date Patient Seen: 08/11/25 Interval history: Chief complaint: Malaise fatigue urinary burning and leg pain with evidence of UTI and leukocytosis History of present illness: 08/10: 89-year-old female recently discharged for congestive heart failure and COPD exacerbation and did quite well until about 3 days ago started developing dysuria fatigue leg pain and weakness dyspnea with activity with rigors and chills. Patient had some leftover Macrobid and started taking that but her symptoms continued to escalate and came to the emergency room 08/10. Findings in the emergency room significant for leukocytosis white count 54610 with 81% neutrophils urinalysis was demonstrates pyuria nitrates and bacteriuria. Remainder for metabolic and hemogram were unremarkable CT imaging of the chest did not show infiltrate pulmonary edema pulmonary embolus and venous Dopplers of both lower extremities were clear for deep venous thrombosis Patient was admitted for UTI with probable early sepsis as started on ceftriaxone after blood culture drawn. Past medical history significant for: COPD Morbid obesity Chronic diastolic congestive heart failure Review of systems: No palpitations No nausea vomiting diarrhea No paresthesia or paresis Physical exam: Elderly female very pleasant no acute distress HEENT unremarkable Heart sounds distant Lung sounds distant Abdomen benign Extremities chronic 2+ edema x4 Neuro nonfocal For objective laboratory and imaging please see the bottom of the note Assessment and plan: Signs assessment suggestive of UTI with pyuria bacteria and leukocyte esterase with urinary symptoms and a white count 50074 * Blood cultures urine culture * Ceftriaxone * Supportive care * Pyridium * Diflucan for dermatomycosis Chronic medical conditions: * COPD * Morbid obesity * Chronic diastolic congestive heart failure DVT prophylaxis: * Subcutaneous heparin Code status: * Do not resuscitate Disposition: * Switch to inpatient switch to inpatient 35 minutes were involved in the evaluation of this patient including [id number] evaluation physical examination review of records physical examination of the patient discussion with ER provider and treatment team review of objective laboratory and imaging Exam Vital Signs (past 8 hours): - 08/11/25 08:00 08/11/25 09:25 08/11/25 09:38 Temperature 97.2 F L Pulse Rate 79 86 Respiratory Rate 17 20 Blood Pressure 101/55 L Pulse Oximetry 91 98 97 Oxygen Delivery Method Room Air Oxygen Flow Rate 0 Fraction of Inspired Oxygen 21 08/11/25 09:38 08/11/25 12:00 Temperature 97.1 F L 97.1 F L Pulse Rate 85 85 Respiratory Rate 16 16 Blood Pressure 94/63 94/63 Pulse Oximetry 97 97 Oxygen Delivery Method Oxygen Flow Rate 0 Fraction of Inspired Oxygen Fraction of Inspired Oxygen 21 SaO2/FiO2 Ratio 447 Oxygen Delivery Method Room Air Oxygen Flow Rate 0 Objective Labs 08/10/25 15:00 08/10/25 15:00 Labs: Laboratory Results - last 24 hr 08/10/25 08/10/25 15:00 17:36 Total Counted 100 Seg Neutrophils % 81.0 H Band Neutrophils % 12.0 H Lymphocytes % (Manual) 2.0 L Monocytes % (Manual) 5.0 Neutrophils # (Manual) 09012 H Toxic Vacuolation Present H RBC Morphology Normal morphology PT 12.5 INR 1.1 Sodium 133 L Potassium 4.2 Chloride 97 L Carbon Dioxide 25 BUN 20 H Creatinine 0.84 Estimated GFR > 60 BUN/Creatinine Ratio 23.8 H Glucose 101 H Lactate 1.9 Calcium 9.8 Total Bilirubin 1.3 AST 31 ALT 32 Alkaline Phosphatase 76 Troponin I 0.015 NT-Pro-B Natriuret Pep 492 H Total Protein 7.4 Albumin 4.6 Globulin 2.8 Albumin/Globulin Ratio 1.6 Procalcitonin 0.329 Urine Color Yellow Urine Appearance Clear Urine pH 6.0 Ur Specific [place] <=1.005 Urine Protein Negative Urine Glucose (UA) Negative Urine Ketones Negative Urine Occult Blood Negative Urine Nitrate Positive H Urine Bilirubin Negative Urine Urobilinogen 0.2 Ur Leukocyte Esterase 2+ H Urine RBC 0-1/hpf Urine WBC 10-30/hpf H Ur Squamous Epith Cells None seen Ur Transition Epith Cell 0-1/hpf Urine Bacteria Moderate (10-30) H Ur Culture Indicated? Specimen cultured Vol Urine Centrifuged 10ml (spun) [facility] Medical History Pneumonia involving right lung (~07/2025) Asthma Acute exacerbation of chronic obstructive pulmonary disease (~07/2024) Fall Chronic prescription benzodiazepine use Pulmonary nodule less than 6 mm in diameter with low risk for malignant neoplasm (~07/2020) Peripheral neuropathy Bronchitis Abnormal LFTs Restrictive lung disease Dysphagia, pharyngeal phase Obesity (BMI 30-39.9) Urinary incontinence (2004) Foot pain, left (2009) Ankle pain, left (2009) Lumbar spinal stenosis Cataract (03/2014) Hyperlipidemia Hypothyroidism 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) Essential tremor (05/19/15) Urge incontinence of urine (05/14/15) Chronic lumbar radiculopathy (08/26/14) Chronic left shoulder pain (12/25/17) Relationship problem with family member Internal hemorrhoids (~08/2020) Feared complaint without diagnosis Allergy to sulfa drugs Tinnitus (~2014) Chicken pox Mumps (1966) Surgical History History of esophagogastroduodenoscopy (EGD) (~03/2016) Anesthesia H/O abdominal surgery (03/2007) History of vaginal surgery (~2008) History of partial knee replacement (2007) History of partial knee replacement (2003) History of hip replacement (2001) History of hip replacement (1996) Status post hysterectomy with oophorectomy (1969) Family History Father Heart disease Pulmonary embolism Grandmother Heart disease Heart attack Sister Cancer Melanoma Grandmother No problems noted. Mother Dementia Grandfather Pneumonia Grandfather Dementia Daughter Depression Social History marital status: details: 07/22/2007 number of children: 1 household members: none lives independently: Yes housing: condominium pets and animals: No occupational status: previously employed Smoking Status: Never smoker alcohol intake: never substance use type: does not use Assessment & Plan Time-Based Coding :: [TOTAL MINUTES] spent with patient and on the chart (including review of chart, obtaining history, exam, reviewing outside data, placing orders, documenting exam and treatment plan, and counseling patient) on [DATE].
--- NOTE | 2025-08-11 15:31 | OT.IP.EVAL ---
Past Medical History (Last Reviewed 08/10/25 @ 16:06 by Lydia Posada DO) Abnormal LFTs Acute exacerbation of chronic obstructive pulmonary disease (~07/2024) Allergy to sulfa drugs Ankle pain, left (2009) Asthma Bronchitis Cataract (03/2014) Chicken pox Chronic left shoulder pain (12/25/17) Chronic lumbar radiculopathy (08/26/14) Chronic prescription benzodiazepine use Dysphagia, pharyngeal phase Essential tremor (05/19/15) Fall Feared complaint without diagnosis Foot pain, left (2009) Hyperlipidemia Hypothyroidism Internal hemorrhoids (~08/2020) Lumbar spinal stenosis Mumps (1966) Obesity (BMI 30-39.9) Peripheral neuropathy Pneumonia involving right lung (~07/2025) Pulmonary nodule less than 6 mm in diameter with low risk for malignant neoplasm (~07/2020) Relationship problem with family member Restrictive lung disease 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) Tinnitus (~2014) Urge incontinence of urine (05/14/15) Urinary incontinence (2004) Surgical History (Last Reviewed 08/10/25 @ 16:07 by Lydia Posada DO) Anesthesia H/O abdominal surgery (03/2007) History of esophagogastroduodenoscopy (EGD) (~03/2016) History of hip replacement (1996) History of hip replacement (2001) History of partial knee replacement (2003) History of partial knee replacement (2007) History of vaginal surgery (~2008) Status post hysterectomy with oophorectomy (1969) Occupational Therapy Inpatient Evaluation/Re-Eval M1 PT/OT-IP Prior Functional Status Start: 08/11/25 15:08 Freq: NEEDED Status: Active Protocol: Document 08/11/25 15:08 ISABELLA (Rec: 08/11/25 15:31 ISABELLA Desktop) Medical Review Prior Functional Status Medical History Yes Reviewed Communication Pt able to make needs known Mobility and Gait Pt reports amb with FWW in home and to appointments. Activities of Daily Pt reports being I with her BADL, light cooking, paying Living and IADL's her bills, and medication mgmt. Pt has a college teacher every 2 weeks for deep cleaning and laundry. Pt also has a caregiver who assists with transporting to med appointments and grocery shopping prn. Pt performs a sponge bath in her half bathroom. Pt uses LB AE for LB dressing. Social History Household Members none Living Arrangements Apartment/Condo Number of Floors ( Two Floors Floors) Number of Stairs To Pt lives on the main level of her home. She has no Enter/Railing? steps to enter from outside. She sleeps in her lift chair. Home Environment High Toilet,Ramp Home Equipment Front Wheel Walker,It Technical Architect,Sock Aid,Lift Recliner,Grab Bars Near Toilet Employment Status Retired M2 OT-IP Current Condition Start: 08/11/25 15:08 Freq: Status: Active Protocol: Document 08/11/25 15:08 ISABELLA (Rec: 08/11/25 15:[address] [facility] [address] Desktop) Occupational Therapy Current Condition Current Condition Evaluation Date 08/11/25 Treatment Diagnosis UTI, COPD, CHF, decreased self care Diagnosis Onset Date 08/10/25 M3 OT- IP Subjective and Pain Start: 08/11/25 15:08 Freq: Status: Active Protocol: Document 08/11/25 15:08 ISABELLA (Rec: 08/11/25 15:31 [facility] Desktop) OT- Subjective Occupational Therapy Visit Type Type Initial Evaluation Visit Start Time 13:50 Visit Stop Time 14:27 Notes Pt was reclined in bed on entrance of OT. Pt agreeable to OT eval with moderate encouragment. Occupational Therapy Visit Comments Patient Comments I am willing to go to skilled nsg if I am not strong enough to go home. Pt says she worries about being strong enough to take care of herself as she lives alone. OT Pain Assessment Pain When Pain Assessed During Mobility Location Right knee Intensity 6 Scale Used Numeric (0 - 10) M4 OT- IP ADL's Start: 08/11/25 15:08 Freq: Status: Active Protocol: Document 08/11/25 15:08 ISABELLA (Rec: 08/11/25 15:31 [facility] Desktop) OT [id number] Comments OT Self-Feeding not a meal time Comments OT ADL-Grooming General Evaluation Grooming Ability Standby Assistance Areas Needing Retrieving/Set-up of Grooming Items Assistance OT ADL-Oral Care Comments Oral Care Comments not observed OT ADL-Dressing General Eval Lower Body Dressing Total Assistance Ability Areas Needing Underpants/Brief,Socks Assistance Comments OT Dressing Comments Pt uses AE for LB dressing (not available at eval time) . Pt required OT to don socks, to start briefs on LEs and to pull up over her hips. OT ADL-Toileting General Evaluation Toileting Ability Moderate Assistance Areas Needing Manage Clothing Assistance Comments OT Toileting Pt manages her hygiene needs but required OT to doff/ Comments don brief. OT ADL-Bathing Comments OT Bathing Comments not observed. Pt performs sponge baths at baseline. M5 OT- IP IADL's Start: 08/11/25 15:08 Freq: Status: Active Protocol: Document 08/11/25 15:08 ISABELLA (Rec: 08/11/25 15:31 [facility] Desktop) OT-Instrumental Activities of Daily Living Deficits IADL Deficits No Deficits Identified Home Safety Awareness Awareness of Need Good Awareness for Assistance at Home Medication Management Medication No Deficits Identified Management Money Management Money Management No Deficits Identified Meal Preparation Meal Preparation May need assist on dc, may benefit from service like Comments meals on wheels Software Development Intern Software Development Intern Caregiver Provides Assist Driving Driving Caregiver Provides Assist M6 OT- IP Functional Cognition Start: 08/11/25 15:08 Freq: Status: Active Protocol: Document 08/11/25 15:08 ISABELLA (Rec: 08/11/25 15:31 [facility]) Cognitive Factors Limiting Selfcare Function Cognitive Ability Level of Alertness Alert Patient Orientation Name,Age,Birthday,Month,Date,Year,Day of Week,Place, Situation Attention Span Capable of Focused Attention,Capable of Sustained Ability Attention Ability to Follow Able to Follow One Step Commands,Able to Follow Multi- Commands Step Commands Memory Description No Deficits Noted Safety Awareness No Deficits Noted Problem Solving No deficits Noted Ability OT- Vision and Hearing OT- Hearing Assessment OT- Hearing Hearing Impaired,Right Ear Impaired,Left Ear Impaired Assessment OT- Vision Assessment Visual Acuity WFL,Glasses All The Time M7 OT- IP Mobility and Balance Start: 08/11/25 15:08 Freq: Status: Active Protocol: Document 08/11/25 15:08 ISABELLA (Rec: 08/11/25 15:31 [facility] Desktop) OT- Bed Mobility Assessment Supine to Sit Supine to Sit Assist Minimal Assistance,1 Person Assistance,Head of Bed Elevated,Bedrails Scooting Scooting to Edge of Minimal Assistance,1 Person Assistance,Head of Bed Bed Elevated,Bedrails OT-Transfer Assessment Sit to and From Stand Sit to and from Minimal Assistance,1 Person Assistance,Use of Upper Stand Extremities Transfers Transfer Ability Minimal Assistance,1 Person Assistance,Use of Upper Extremities Technique Transfer Destination Bedside Commode,Chair Transfer Technique Stand Step Pivot Devices Transfer Assistive Gait Belt,Front Wheeled Walker Devices Comments Mobility Comments Pt requires increased time to scoot EOB and ultimately needs MIN A. Pt with good safety awareness for hand placement during sit<>stands. OT- Balance Assessment Sitting Balance and Reactions Static Sitting Normal Balance Ability Dynamic Sitting Good Balance Ability Standing Balance and Reactions Static Standing Good Balance Ability Dynamic Standing Fair Balance Ability M8 OT- IP Objective Assessments Start: 08/11/25 15:08 Freq: Status: Active Protocol: Document 08/11/25 15:08 ISABELLA (Rec: 08/11/25 15:31 [facility] Desktop) OT Gross Range of Motion Upper Extremity Range of Motion Assessment Bilaterally Impaired ROM Impairments B shoulders ~90 active flexion OT Strength Upper Extremity Strength Assessment Bilaterally Impaired Shoulder B 3 Elbow B 4- Hand B 4 Hand Taxation Accountant Strength Hand Dominance Right OT-Muscle Tone Assessment Muscle Tone WNL Yes OT Sensation Assessment Edema Edema Absent M9 OT- IP Assessment and Plan Start: 08/11/25 15:08 Freq: Status: Active Protocol: Document 08/11/25 15:08 ISABELLA (Rec: 08/11/25 15:31 [facility] Desktop) OT Summary Assessment and Plan Potential Rehabilitation Good Potential Analytic Complexity Low at Evaluation Summary OT Impairments Pain,Range of Motion,Strength,Balance,Functional Mobility,Self-Feeding,Grooming,Dressing,Toileting, Bathing,Toilet Transfers,Shower Transfers,Activity Tolerance Progress Towards Progressing Toward Goals Goals Assessment Summary Pt is an 89 yo F recently dc for COPD exacerbation, developed dysuria fatigue leg pain, weakness, and dyspnea with activity. Pt admitted due to UTI, COPD exacerbation and CHF. Pt presents with activity intolerance, fearfulness of anticipating pain in LEs, decreased BADLs, decreased functional t/s, decreased UE ROM, and muscle weakness. Skilled OT services are appropriate to address these deficits and promote return towards PLOF. Pt may benefit from HH on dc vs SNF. Goals Grooming Goal Independent Dressing Goal Independent,Long Handled Shoe Horn,It Technical Architect,Sock Aid Toileting Goal Independent Bathing Goal Independent Toilet Transfer Goal Independent Days to Meet Goals 15 Frequency of Treatment Other frequency 5x/wk Treatment Plan OT Treatment Plan ADL Training,Functional Mobility,Therapeutic Exercises, Patient/Family Education,Discharge Planning Discharge Recommendations OT Discharge Home,Home Health,Home vs SNF Recommendations Transportation Needs Private Vehicle,Wheelchair/Cabulance at Discharge
--- NOTE | 2025-08-11 15:48 | PT.IIE ---
Surgical History (Last Reviewed 08/10/25 @ 16:07 by Lydia Posada DO) Anesthesia H/O abdominal surgery (03/2007) History of esophagogastroduodenoscopy (EGD) (~03/2016) History of hip replacement (1996) History of hip replacement (2001) History of partial knee replacement (2003) History of partial knee replacement (2007) History of vaginal surgery (~2008) Status post hysterectomy with oophorectomy (1969) Medical History (Last Reviewed 08/10/25 @ 16:06 by Lydia Posada DO) Abnormal LFTs Acute exacerbation of chronic obstructive pulmonary disease (~07/2024) Allergy to sulfa drugs Ankle pain, left (2009) Asthma Bronchitis Cataract (03/2014) Chicken pox Chronic left shoulder pain (12/25/17) Chronic lumbar radiculopathy (08/26/14) Chronic prescription benzodiazepine use Dysphagia, pharyngeal phase Essential tremor (05/19/15) Fall Feared complaint without diagnosis Foot pain, left (2009) Hyperlipidemia Hypothyroidism Internal hemorrhoids (~08/2020) Lumbar spinal stenosis Mumps (1966) Obesity (BMI 30-39.9) Peripheral neuropathy Pneumonia involving right lung (~07/2025) Pulmonary nodule less than 6 mm in diameter with low risk for malignant neoplasm (~07/2020) Relationship problem with family member Restrictive lung disease 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 Activities of Daily Pt reports being I with her BADL, light cooking, paying Living and IADL's her bills, and medication mgmt. Pt has a mouthpiece maker every 2 weeks for deep cleaning and laundry. Pt also has a caregiver who assists with transporting to med appointments and grocery shopping prn. Prior Functional Ramp up into home. Level (Other details ) Social History Household Members caregiver,none Living Arrangements Apartment/Condo Number of Floors ( Two Floors Floors) Number of Stairs To Pt lives on the main level of her home. She has no Enter/Railing? steps to enter from outside. She sleeps in her lift chair. She has not gone upstairs for 2 years. Home Environment High Toilet,Ramp Home Equipment Front Wheel Walker,Manual Wheelchair,Bariatric Physician,Sock Aid, Lift Recliner,Grab Bars Near Toilet Employment Status Retired M2 PT-IP Current Condition Start: 08/11/25 15:36 Freq: NEEDED Status: Active Protocol: Document 08/11/25 15:36 KJ (Rec: 08/11/25 15:48 KJ [id number]) Physical Therapy Current Condition Current Condition Evaluation Date 08/11/25 Treatment Diagnosis Decreased activity tolerance M3 PT-IP Subjective Start: 08/11/25 15:36 Freq: NEEDED Status: Active Protocol: Document 08/11/25 15:36 KJ (Rec: 08/11/25 15:48 KJ [id number]) Subjective Physical Therapy Visit Type Type Initial Evaluation Visit Start Time 15:03 Visit Stop Time 15:24 Physical Therapy Visit Comments Patient Comments Pt left hospital several days ago, was at home, went to toilet and couldn't get up. Patient Goals Thinks she needs to go to rehab to get strong enough to go home alone Therapy Pain Assessment Pain When Pain Assessed At Rest Pain Present Pain Present Pain Reported Location Bilateral Thigh Description Acute Pain Management Modification of Treatment Techniques M4 PT-IP Mobility and Gait Start: 08/11/25 15:36 Freq: NEEDED Status: Active Protocol: Document 08/11/25 15:36 KJ (Rec: 08/11/25 15:48 KJ [id number]) PT-Transfer Assessment Sit to and From Stand Sit to and from Contact Guard Assistance Stand Equipment Transfer Assistive Gait Belt,Front Wheeled Walker Device Transfers Transfer Destination Chair Transfer Technique Stand Step Pivot Transfer Ability Level of Assist Contact Guard Assistance Gait Assessment Gait Gait Assistance Contact Guard Assist Required: Distance (Feet) 15 Assistive Devices Assistive Device Gait Belt,Front Wheeled Walker Gait Deviations General Gait Pattern Decreased Stride Length Factors Limiting Gait Function Factors Limiting Respiratory Distress Gait Function Comments Gait Comments O2 sats prior to ambulating 94%. O2 sats after ambulating 86% PT-Balance Assessment Sitting Balance and Reactions Static Sitting Normal Balance Ability Dynamic Sitting Normal Balance Ability Standing Balance and Reactions Static Standing Normal Balance Ability Dynamic Standing Good Balance Ability Device Used fww M5 PT-IP Objective Assessments Start: 08/11/25 15:36 Freq: NEEDED Status: Active Protocol: Document 08/11/25 15:36 KJ (Rec: 08/11/25 15:48 KJ [id number]) Orientation Orientation/Cognition Level of Alertness Alert Orientation Name,Age,Birthday,Month,Date,Year,Day of Week,Place, Situation Language Function No Deficits Noted Ability Safety Awareness Understands Safety Issues Memory Description No Deficits Noted Gross Range of Motion Upper Extremity ROM Assessment Bilaterally Impaired Impairments Bilat shoulder, may be due to OA Lower Extremity ROM Assessment Within Functional Limits Strength Upper Extremity Strength Shoulder nt Elbow wfl Wrist wfl Hand wfl Lower Extremity Strength Assessment Within Functional Limits Coordination Assessment Gross Coordination Gross Coordination WNL M7 PT-IP Assessment and Plan Start: 08/11/25 15:36 Freq: NEEDED Status: Active Protocol: Document 08/11/25 15:36 KJ (Rec: 08/11/25 15:48 KJ [id number]) PT Summary Assessment and Plan Potential Rehabilitation Good Potential Status of Condition Evolving at Evaluation Summary Impairments Transfers,Gait,Activity Tolerance Assessment Summary Pt with poor tolerance to activity due to drop in O2 sats. Pt does not use home O2. Now adm w/UTI, she will benefit from skilled PT w/O2 during activity to regain independence. Goals Bed Mobility Goal Independent Transfer Goal Independent Gait Goal Independent Gait Distance 15 Days to Meet Goals 10 Frequency of Treatment Frequency Of Once a Day Treatment Treatment Plan Physical Therapy Transfer Training,Gait Training,Therapeutic Exercise Treatment Plan Other Monitor O2 sats during activity, use O2 to maintain Recommendations and activity levels Next Treatment Focus Recommendations To Nursing Amount of Assist 1 Person Assist Needed Discharge Recommendations PT Discharge Home vs SNF Recommendations [phone]
[2025-08-11] MEDS: FUROSEMIDE 20 MG TABLET PO (16:14)
[2025-08-11] MEDS: PHENAZOPYRIDINE 100 MG TABLET 200 MG PO ×2 (16:14→21:14)
--- NOTE | 2025-08-11 20:55 | EKG_ITS ---
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
[2025-08-11] MEDS: FAMOTIDINE 20 MG/2 ML VIAL IV (21:09)
[2025-08-11] MEDS: MORPHINE 2 MG/ML INJ IV (21:13)
[2025-08-11] MEDS: ATORVASTATIN 20 MG TABLET PO (21:14)
[2025-08-11] MEDS: CHOLECALCIFEROL (VITAMIN D3) 1,000 UNIT TABLET 2000 UNIT PO (21:14)
[2025-08-11] MEDS: MAG HYDROX/ALUM/SIMETH 30 ML UDC PO (21:15)
[2025-08-11 21:44] LABS: Troponin I < 0.012 ng/mL (0.01-0.034)
[2025-08-12] VITALS (8 sets, daily range): BP systolic 96–103; BP diastolic 49–51; PULSE 74–90; RESP 18–20; TEMP 35.7–36.2; O2SAT 92–98
[2025-08-12] MEDS: PANTOPRAZOLE DR 20 MG TABLET PO (06:13)
[2025-08-12] MEDS: ALBUTEROL/IPRATROPIUM 3 ML AMPUL INH ×4 (07:29→20:36)
[2025-08-12] MEDS: BUDESONIDE 0.5 MG/2 ML NEB INH ×2 (07:29→20:36)
--- NOTE | 2025-08-12 11:05 | OT.IP.TRT ---
Occupational Therapy Treatment Note M2 OT-IP Current Condition Start: 08/11/25 15:08 Freq: Status: Active Protocol: Document 08/11/25 15:08 ISABELLA (Rec: 08/11/25 15:31 ISABELLA Desktop) Occupational Therapy Current Condition Current Condition Evaluation Date 08/11/25 Treatment Diagnosis UTI, COPD, CHF, decreased self care Diagnosis Onset Date 08/10/25 M3 OT- IP Subjective and Pain Start: 08/11/25 15:08 Freq: Status: Active Protocol: Document 08/12/25 12:04 [facility] (Rec: 08/12/25 12:16 [facility] Desktop) OT- Subjective Occupational Therapy Visit Type Type Treatment Note Visit Start Time 10:33 Visit Stop Time 11:05 Occupational Therapy Visit Comments Patient Comments Pt wanting to get up to use the bathroom and then do oral care needs at the sink. Patient/Caregiver To go to skilled rehab. Goals OT Pain Assessment Pain When Pain Assessed At Rest Pain Present Pain Present Pain Reported Location Bilateral Thigh Pain Behaviors Facial Grimacing M4 OT- IP ADL's Start: 08/11/25 15:08 Freq: Status: Active Protocol: Document 08/12/25 12:04 [facility] (Rec: 08/12/25 12:16 [facility] Desktop) OT [id number] Comments OT Self-Feeding not a meal time Comments OT ADL-Grooming General Evaluation Grooming Ability Standby Assistance Areas Needing Retrieving/Set-up of Grooming Items Assistance Comments OT Grooming Comments Able to do while standing at the sink with FWW. OT ADL-Oral Care General Eval Oral Care Ability Independent OT ADL-Dressing General Eval Lower Body Dressing Moderate Assistance,Maximum Assistance Ability Areas Needing Underpants/Brief,Socks Assistance Comments OT Dressing Comments Able to use LB dressing equipment but still needing assist to help merari/doff brief over her feet. OT ADL-Toileting General Evaluation Toileting Ability Moderate Assistance Areas Needing Manage Clothing Assistance Comments OT Toileting Pt manages her hygiene needs in the front but unable to Comments reach appropriately in the back. but required OT to doff/don brief. Pt would benefit from toilet paper aid/ bidet at home. OT ADL-Bathing Comments OT Bathing Comments not observed. Pt performs sponge baths at baseline. M5 OT- IP IADL's Start: 08/11/25 15:08 Freq: Status: Active Protocol: Document 08/11/25 15:08 ISABELLA (Rec: 08/11/25 15:31 [facility] Desktop) OT-Instrumental Activities of Daily Living Deficits IADL Deficits No Deficits Identified Home Safety Awareness Awareness of Need Good Awareness for Assistance at Home Medication Management Medication No Deficits Identified Management Money Management Money Management No Deficits Identified Meal Preparation Meal Preparation May need assist on dc, may benefit from service like Comments meals on wheels Warehouse Logistics Manager Warehouse Logistics Manager Caregiver Provides Assist Driving Driving Caregiver Provides Assist M6 OT- IP Functional Cognition Start: 08/11/25 15:08 Freq: Status: Active Protocol: Document 08/11/25 15:08 ISABELLA (Rec: 08/11/25 15:31 [facility] Desktop) Cognitive Factors Limiting Selfcare Function Cognitive Ability Level of Alertness Alert Patient Orientation Name,Age,Birthday,Month,Date,Year,Day of Week,Place, Situation Attention Span Capable of Focused Attention,Capable of Sustained Ability Attention Ability to Follow Able to Follow One Step Commands,Able to Follow Multi- Commands Step Commands Memory Description No Deficits Noted Safety Awareness No Deficits Noted Problem Solving No deficits Noted Ability OT- Vision and Hearing OT- Hearing Assessment OT- Hearing Hearing Impaired,Right Ear Impaired,Left Ear Impaired Assessment OT- Vision Assessment Visual Acuity WFL,Glasses All The Time M7 OT- IP Mobility and Balance Start: 08/11/25 15:08 Freq: Status: Active Protocol: Document 08/12/25 12:04 [facility] (Rec: 08/12/25 12:16 [facility] Desktop) OT- Bed Mobility Assessment Supine to Sit Supine to Sit Assist Minimal Assistance,1 Person Assistance,Head of Bed Elevated,Bedrails OT-Transfer Assessment Sit to and From Stand Sit to and from Contact Guard Assistance,Minimal Assistance,1 Person Stand Assistance,Use of Upper Extremities Transfers Transfer Ability Contact Guard Assistance,Minimal Assistance,1 Person Assistance,Use of Upper Extremities Technique Transfer Destination Bedside Commode,Chair Transfer Technique Stand Step Pivot Devices Transfer Assistive Gait Belt,Front Wheeled Walker Devices Comments Mobility Comments CGA to JASMIN to stand and transfer to bathroom with FWW. OT- Balance Assessment Sitting Balance and Reactions Static Sitting Normal Balance Ability Dynamic Sitting Good Balance Ability Standing Balance and Reactions Static Standing Good Balance Ability Dynamic Standing Fair Balance Ability M8 OT- IP Objective Assessments Start: 08/11/25 15:08 Freq: Status: Active Protocol: Document 08/11/25 15:08 ISABELLA (Rec: 08/11/25 15:31 [facility] Desktop) OT Gross Range of Motion Upper Extremity Range of Motion Assessment Bilaterally Impaired ROM Impairments B shoulders ~90 active flexion OT Strength Upper Extremity Strength Assessment Bilaterally Impaired Shoulder B 3 Elbow B 4- Hand B 4 Hand Filter Tank Tender Helper Head Strength Hand Dominance Right OT-Muscle Tone Assessment Muscle Tone WNL Yes OT Sensation Assessment Edema Edema Absent M9 OT- IP Assessment and Plan Start: 08/11/25 15:08 Freq: Status: Active Protocol: Document 08/12/25 12:04 [facility] (Rec: 08/12/25 12:16 [facility] Desktop) OT Summary Assessment and Plan Potential Rehabilitation Good Potential Analytic Complexity Low at Evaluation Summary OT Impairments Pain,Range of Motion,Strength,Balance,Functional Mobility,Self-Feeding,Grooming,Dressing,Toileting, Bathing,Toilet Transfers,Shower Transfers,Activity Tolerance Progress Towards Progressing Toward Goals Goals Assessment Summary Pt on RA and at 92% and educated to take deeper breaths and also check with nursing to give pt a spirometer to work on. Pt easily gets tired during ADL and mobility needs. Pt still needing assist for dressing and hygiene needs. Pt will benefit from skilled rehab and pt wanting to go at this time to work on increasing independence with ADL, mobility and activity tolerance. Goals Grooming Goal Independent Dressing Goal Independent,Long Handled Shoe Horn,Metal Buffer,Sock Aid Toileting Goal Independent Bathing Goal Independent Toilet Transfer Goal Independent Days to Meet Goals 14 Frequency of Treatment Other frequency 5x/wk Treatment Plan OT Treatment Plan ADL Training,Functional Mobility,Therapeutic Exercises, Patient/Family Education,Discharge Planning Discharge Recommendations OT Discharge SNF Rehab Recommendations Transportation Needs Private Vehicle,Wheelchair/Cabulance at Discharge
[2025-08-12] MEDS: oxyBUTYnin ER 5 MG TABLET 10 MG PO (12:25)
[2025-08-12] MEDS: VIT C/E/ZN/COPPR/LUTEIN/ZEAXAN CAPSULE 2 CAP PO (12:25)
[2025-08-12] MEDS: PHENAZOPYRIDINE 100 MG TABLET 200 MG PO ×3 (12:25→22:23)
[2025-08-12] MEDS: ACETAMINOPHEN 325 MG TABLET 650 MG PO (12:26)
[2025-08-12] MEDS: SERTRALINE 50 MG TABLET 150 MG PO (12:26)
[2025-08-12] MEDS: MELOXICAM 7.5 MG TABLET 15 MG PO (12:26)
[2025-08-12] MEDS: FUROSEMIDE 20 MG TABLET PO (12:27)
[2025-08-12] MEDS: CHOLECALCIFEROL (VITAMIN D3) 1,000 UNIT TABLET 2000 UNIT PO ×2 (12:35→22:23)
--- NOTE | 2025-08-12 14:27 | P.PN_ITS ---
Subjective Subjective Date Patient Seen: 08/12/25 Interval history: Chief complaint: Malaise fatigue urinary burning and leg pain with evidence of UTI and leukocytosis History of present illness: 08/10: 89-year-old female recently discharged for congestive heart failure and COPD exacerbation and did quite well until about 3 days ago started developing dysuria fatigue leg pain and weakness dyspnea with activity with rigors and chills. Patient had some leftover Macrobid and started taking that but her symptoms continued to escalate and came to the emergency room 08/10. Findings in the emergency room significant for leukocytosis white count [id number] with 81% neutrophils urinalysis was demonstrates pyuria nitrates and bacteriuria. Remainder for metabolic and hemogram were unremarkable CT imaging of the chest did not show infiltrate pulmonary edema pulmonary embolus and venous Dopplers of both lower extremities were clear for deep venous thrombosis Patient was admitted for UTI with probable early sepsis as started on ceftriaxone after blood culture drawn. 08/11: Improvement overall in fatigue and malaise still feeling very weak needs assistance to stand 08/12: Episode of chest pain last night advance sensation across the chest EKG was obtained which is no change from previous EKGs troponin was negative patient was set up for a stress test Urine culture positive for Proteus 1. Proteus mirabilis M.I.C. RX --------- --- * Amoxicillin/Clavulanate <=2 S * Ampicillin <=2 S * Cefazolin 4 I * Cefepime E-test 0.125 S * Ceftriaxone <=0.25 S * Ciprofloxacin <=0.06 S * Ertapenem <=0.12 S * Gentamicin <=1 S * Levofloxacin <=0.12 S * Meropenem <=0.25 S * Nitrofurantoin 128 R * Tetracycline >=16 R * Trimethoprim/Sulfamethoxazole <=20 S * Piperacillin/Tazobactam <=4 S Review of systems: No palpitations No nausea vomiting diarrhea No paresthesia or paresis Physical exam: Elderly female very pleasant no acute distress HEENT unremarkable Heart sounds distant Lung sounds distant Abdomen benign Extremities chronic 2+ edema x4 Neuro nonfocal Assessment and plan: 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 with urinary symptoms and a white count [id number] * Blood cultures negative * urine culture Proteus * Ceftriaxone * Supportive care * Pyridium * Diflucan for dermatomycosis * Ultrasound of kidneys to look for nidus for recurrent infection Chest pain and shortness for breath * Stress test Chronic medical conditions: * COPD * Morbid obesity * Chronic diastolic congestive heart failure DVT prophylaxis: Subcutaneous heparin Code status: * Do not resuscitate Disposition: * Switch to inpatient switch to inpatient * Patient requests evaluation for correction Time based billin minutes were involved in the evaluation of this patient including [id number] evaluation physical examination review of records physical examination of the patient discussion with ER provider and treatment team review of objective laboratory and imaging Exam Vital Signs (past 8 hours): - 08/12/25 07:37 08/12/25 08:00 08/12/25 13:30 Temperature 96.2 F L Pulse Rate 90 74 Respiratory Rate 18 20 Blood Pressure 103/51 L Pulse Oximetry 97 92 95 Oxygen Delivery Method Nasal Cannula Oxygen Flow Rate 1 0 Fraction of Inspired Oxygen 21 Fraction of Inspired Oxygen 21 SaO2/FiO2 Ratio 452 Oxygen Delivery Method Nasal Cannula Oxygen Flow Rate 0 Objective Labs 08/10/25 15:00 08/10/25 15:00 Labs: Laboratory Results - last 24 hr 08/11/25 21:11 Troponin I < 0.012 [facility] Medical History Pneumonia involving right lung (~07/2025) Asthma Acute exacerbation of chronic obstructive pulmonary disease (~07/2024) Fall Chronic prescription benzodiazepine use Pulmonary nodule less than 6 mm in diameter with low risk for malignant neoplasm (~07/2020) Peripheral neuropathy Bronchitis Abnormal LFTs Restrictive lung disease Dysphagia, pharyngeal phase Obesity (BMI 30-39.9) Urinary incontinence (2004) Foot pain, left (2009) Ankle pain, left (2009) Lumbar spinal stenosis Cataract (03/2014) Hyperlipidemia Hypothyroidism 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) Essential tremor (05/19/15) Urge incontinence of urine (05/14/15) Chronic lumbar radiculopathy (08/26/14) Chronic left shoulder pain (12/25/17) Relationship problem with family member Internal hemorrhoids (~08/2020) Feared complaint without diagnosis Allergy to sulfa drugs Tinnitus (~2014) Chicken pox Mumps (1966) Surgical History History of esophagogastroduodenoscopy (EGD) (~03/2016) Anesthesia H/O abdominal surgery (03/2007) History of vaginal surgery (~2008) History of partial knee replacement (2007) History of partial knee replacement (2003) History of hip replacement (2001) History of hip replacement (1996) Status post hysterectomy with oophorectomy (1969) Family History Father Heart disease Pulmonary embolism Grandmother Heart disease Heart attack Sister Cancer Melanoma Grandmother No problems noted. Mother Dementia Grandfather Pneumonia Grandfather Dementia Daughter Depression Social History marital status: details: 07/22/2007 number of children: 1 household members: caregiver and none lives independently: Yes housing: condominium pets and animals: No occupational status: previously employed Smoking Status: Never smoker alcohol intake: never substance use type: does not use Assessment & Plan Time-Based Coding :: [TOTAL MINUTES] spent with patient and on the chart (including review of chart, obtaining history, exam, reviewing outside data, placing orders, documenting exam and treatment plan, and counseling patient) on [DATE].
--- NOTE | 2025-08-12 14:33 | DI.US.S_ITS ---
PROCEDURE: US RENAL COMPLETE INDICATIONS: Recurrent Proteus evaluation for nephrolithiasis TECHNIQUE: Real-time scanning was performed of the kidneys, with image documentation. COMPARISON: [facility], CT, CT ANGIO CHEST PE PROTOCOL, 08/10/2025, 16:07. FINDINGS: Suboptimal exam secondary to lack of good acoustic window. Kidneys: Kidneys are normal in size. Right kidney measures 11.1 cm long; left kidney measures 10.6 cm long. Right renal cortical thickness is 1.5 cm; left renal cortical thickness is 1.3 cm. Renal cortical echotexture is normal. No hydronephrosis or nephrolithiasis. No suspicious solid mass lesions. Bladder: Not evaluated due to incomplete distension. IMPRESSION: Given sonographic limitations, no evidence of obstructive uropathy. Diminutive nephrolithiasis is not excluded. Dictated by: Dorina Solano M.D. on 08/12/2025 at 15:16 Approved by: Dorina Solano M.D. on 08/12/2025 at 15:18
--- NOTE | 2025-08-12 14:55 | PT.IPTN ---
Current Diagnoses Urinary tract infection, site not specified (08/12/25) Physical Therapy Treatment Note M2 PT-IP Current Condition Start: 08/11/25 15:36 Freq: NEEDED Status: Active Protocol: Document 08/11/25 15:36 KJ (Rec: 08/11/25 15:48 KJ [id number]) Physical Therapy Current Condition Current Condition Evaluation Date 08/11/25 Treatment Diagnosis Decreased activity tolerance M3 PT-IP Subjective Start: 08/11/25 15:36 Freq: NEEDED Status: Active Protocol: Document 08/12/25 14:55 AB (Rec: 08/12/25 16:43 AB [id number]) Subjective Physical Therapy Visit Type Type Treatment Note Visit Start Time 14:55 Visit Stop Time 15:20 Number of INSTRUMENT MAKER AND REPAIRER Visits 0 Physical Therapy Visit Comments Patient Comments agreeable to do PT M4 PT-IP Mobility and Gait Start: 08/11/25 15:36 Freq: NEEDED Status: Active Protocol: Document 08/12/25 14:55 AB (Rec: 08/12/25 16:43 AB [id number]) PT-Bed Mobility Assessment Supine to Sit Supine to Sit Maximum Assistance PT-Transfer Assessment Sit to and From Stand Sit to and from Minimal Assistance,1 Person Assistance Stand Equipment Transfer Assistive Gait Belt,Front Wheeled Walker Device Orthotic/Prosthetic No Devices or Brace: Transfers Transfer Technique ambulated Transfer Ability Level of Assist Minimal Assistance,1 Person Assistance,Use of Upper Extremities Comments Mobility Comments pt in bed and agreed to get up. stated that she feels sleepy. supine to sit max A and cues and HOB elevated. able to sit on EOB SBA. (+) SOB with O2 sat 95%. sit to stand min A and cues and ambulated in room using FWW min A 40ft. pt sat back on chair. pt rested. agreed to walk again and completed another 40 ft using FWW min A. pt agreed to sit up on the chair. positioned pt on the chair. call light and table placed within reach. Gait Assessment Gait Gait Assistance Minimum Assistance Required: Distance (Feet) 40 Able to Maintain Yes Weight Bearing Status During Gait Assistive Devices Assistive Device Gait Belt,Front Wheeled Walker Orthotic/Prosthetic No Devices or Brace: Gait Deviations General Gait Pattern Decreased Stride Length,Decreased Feet Clearance,Step- to Gait Factors Limiting Gait Function Factors Limiting Decreased Activity Tolerance,Decreased Strength, Gait Function Difficulty Following Directions,Poor Balance,Poor Safety Awareness,Respiratory Distress M5 PT-IP Objective Assessments Start: 08/11/25 15:36 Freq: NEEDED Status: Active Protocol: Document 08/11/25 15:36 KJ (Rec: 08/11/25 15:48 KJ [id number]) Orientation Orientation/Cognition Level of Alertness Alert Orientation Name,Age,Birthday,Month,Date,Year,Day of Week,Place, Situation Language Function No Deficits Noted Ability Safety Awareness Understands Safety Issues Memory Description No Deficits Noted Gross Range of Motion Upper Extremity ROM Assessment Bilaterally Impaired Impairments Bilat shoulder, may be due to OA Lower Extremity ROM Assessment Within Functional Limits Strength Upper Extremity Strength Shoulder nt Elbow wfl Wrist wfl Hand wfl Lower Extremity Strength Assessment Within Functional Limits Coordination Assessment Gross Coordination Gross Coordination WNL M6 PT-IP Treatment Start: 08/11/25 15:36 Freq: NEEDED Status: Active Protocol: Document 08/12/25 14:55 AB (Rec: 08/12/25 16:43 AB [id number]) Physical Therapy Treatment Education Education Provided Safety M7 PT-IP Assessment and Plan Start: 08/11/25 15:36 Freq: NEEDED Status: Active Protocol: Document 08/12/25 14:55 AB (Rec: 08/12/25 16:43 AB [id number]) PT Summary Assessment and Plan Potential Rehabilitation Fair Potential Summary Impairments Pain,ROM,Strength,Balance,Coordination,Sensation,Tone, Cognition,Bed Mobility,Transfers,Gait,Activity Tolerance Progress Towards Slow Progress due to Medical Issues,Slow Progress due Goals to Activity Tolerance Assessment Summary pt requiring max A for bed mobility and min a for transfers and ambulation using FWW and presents with decrease activity tolerance affecting mobility independence. pt lives alone and will need to be more independent than current mobility level. pt will benefit from SNF rehab to improve overall strength and independence. Goals Bed Mobility Goal Independent Transfer Goal Independent,Front Wheeled Walker Gait Goal Independent,Front Wheel Walker Gait Distance 50 Days to Meet Goals 10 Frequency of Treatment Frequency Of Once a Day Treatment Treatment Plan Physical Therapy Transfer Training,Gait Training,Therapeutic Exercise, Treatment Plan Discharge Planning,Neuromuscular Re-ed Recommendations To Nursing Amount of Assist 1 Person Assist Needed Discharge Recommendations PT Discharge SNF Rehab Recommendations - PT assist 1
--- NOTE | 2025-08-12 15:35 | CM.DPNOTE ---
DCP note BAKER SECOND reviewed EMR per provider, switch to INPT today. stress test pending. per previous CM notes if INPT pt preference to DC to SNF if qualifies. 3rd midnight=dc Fri if stable. PT report pt close to baseline but weaker than normal. Leia Kindly helped send referral to [facility]- acceptance pending. PASRR needed. BAKER SECOND unable to update pt on this plan today. pt getting echo during attempted intervention. P: if stable/[facility] can accept DC Fri to [facility]. CM team will continue to follow closely for DCP Coordination KATT Mueller
[2025-08-12 19:10] LABS: Add Manual Diff / Slide Review NO; Hematocrit 34.3 % (36-46); Hemoglobin 11.6 g/dL (12.0-16.0); Lymphocytes Absolute Auto 1700 /uL (1100-4500); Mean Corpuscular HGB Conc 33.9 % (30-36); Mean Corpuscular Hemoglobin 29.7 PG (26-34); Mean Corpuscular Volume 87.7 fL (80-100); Platelet Count 199 X10^3/uL (150-400)
[2025-08-12 19:21] LABS: Alanine Aminotransferase 30 IU/L (<35); Albumin 3.7 g/dL (3.5-5.0); Albumin Globulin Ratio 1.4 (1.0-2.8); Alkaline Phosphatase 62 U/L (38-126); Blood Urea Nitrogen 25 mg/dL (7-17); Calcium 9.3 mg/dL (8.4-10.2); Carbon Dioxide 27 mmol/L (22-32); Chloride 99 mmol/L (98-107); Estimated Glomerular Filt Rate 45 mL/min (>60); Globulin 2.7 g/dL (1.7-4.1); Glucose 113 mg/dL (70-99); HEMOLYSIS < 15 (0-50); Potassium 4.5 mmol/L (3.4-5.1); Sodium 131 mmol/L (137-145); Total Protein 6.4 g/dL (6.3-8.2)
[2025-08-12] MEDS: ATORVASTATIN 20 MG TABLET PO (22:24)
[2025-08-12] MEDS: HEPARIN 5,000 UNIT/ML VIAL 5000 UNIT SUBCUT (22:25)
[2025-08-12] MEDS: SODIUM CHLORIDE 0.9% 1,000 ML 1000 ML IV (23:13)
[2025-08-13] VITALS (8 sets, daily range): BP systolic 95–135; BP diastolic 52–88; PULSE 75–84; RESP 18–28; TEMP 35.8–36.3; O2SAT 92–97
[2025-08-13] MEDS: PANTOPRAZOLE DR 20 MG TABLET PO (05:17)
[2025-08-13] MEDS: BUDESONIDE 0.5 MG/2 ML NEB INH ×2 (10:22→20:05)
[2025-08-13] MEDS: ALBUTEROL/IPRATROPIUM 3 ML AMPUL INH ×3 (10:22→20:05)
[2025-08-13] MEDS: VIT C/E/ZN/COPPR/LUTEIN/ZEAXAN CAPSULE 2 CAP PO (10:57)
[2025-08-13] MEDS: HEPARIN 5,000 UNIT/ML VIAL 5000 UNIT SUBCUT ×2 (10:58→21:31)
[2025-08-13] MEDS: MELOXICAM 7.5 MG TABLET 15 MG PO (10:58)
[2025-08-13] MEDS: PHENAZOPYRIDINE 100 MG TABLET 200 MG PO ×3 (10:58→21:32)
[2025-08-13] MEDS: oxyBUTYnin ER 5 MG TABLET 10 MG PO (10:58)
--- NOTE | 2025-08-13 10:58 | P.PN_ITS ---
Subjective Subjective Interval history: Summary: 08/10: 89-year-old female recently discharged for congestive heart failure and COPD exacerbation and did quite well until about 3 days ago started developing dysuria fatigue leg pain and weakness dyspnea with activity with rigors and chills. Patient had some leftover Macrobid and started taking that but her symptoms continued to escalate and came to the emergency room 08/10. Findings in the emergency room significant for leukocytosis white count [id number] with 81% neutrophils urinalysis was demonstrates pyuria nitrates and bacteriuria. Remainder for metabolic and hemogram were unremarkable CT imaging of the chest did not show infiltrate pulmonary edema pulmonary embolus and venous Dopplers of both lower extremities were clear for deep venous thrombosis Patient was admitted for UTI with probable early sepsis as started on ceftriaxone after blood culture drawn. 08/11: Improvement overall in fatigue and malaise still feeling very weak needs assistance to stand 08/12: Episode of chest pain last night advance sensation across the chest EKG was obtained which is no change from previous EKGs troponin was negative patient was set up for a stress test Urine culture positive for Proteus 1. Proteus mirabilis M.I.C. RX --------- --- * Amoxicillin/Clavulanate <=2 S * Ampicillin <=2 S * Cefazolin 4 I * Cefepime E-test 0.125 S * Ceftriaxone <=0.25 S * Ciprofloxacin <=0.06 S * Ertapenem <=0.12 S * Gentamicin <=1 S * Levofloxacin <=0.12 S * Meropenem <=0.25 S * Nitrofurantoin 128 R * Tetracycline >=16 R * Trimethoprim/Sulfamethoxazole <=20 S * Piperacillin/Tazobactam <=4 S S: Feeling better today, no chest pain, or dyspnea. Completed day 1 of a 2 day stress test. O: NAD, alert and oriented. Fluent speech. Lungs are clear, normal rate and effort. Heart is regular, no murmur gallop or rub. Abdomen is soft, non distended. Extremities are free of edema. 1. 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 with urinary symptoms and a white count [id number], improving. * Blood cultures negative * urine culture Proteus * Ceftriaxone * Supportive care * Pyridium * Diflucan for dermatomycosis * Ultrasound of kidneys to look for nidus for recurrent infection Chest pain and shortness for breath, resolved. * Stress test Chronic medical conditions, stable: * COPD * Morbid obesity * Chronic diastolic congestive heart failure PLAN: -continue antibiotics -complete 2 day stress test on August 14. -discharge to [facility]. DVT prophylaxis: Subcutaneous heparin Exam Vital Signs (past 8 hours): - 08/13/25 06:45 08/13/25 08:00 08/13/25 10:23 Temperature 97.3 F L 96.5 F L Pulse Rate 75 81 80 Respiratory Rate 20 28 H 18 Blood Pressure 114/61 135/88 Pulse Oximetry 92 94 96 Oxygen Flow Rate 0 0 Fraction of Inspired Oxygen 21 Fraction of Inspired Oxygen 21 SaO2/FiO2 Ratio 447 Oxygen Delivery Method CPAP Oxygen Flow Rate 0 Objective Labs 08/12/25 19:05 08/12/25 19:05 Labs: Laboratory Results - last 24 hr 08/12/25 19:05 WBC 7.8 RBC 3.91 L Hgb 11.6 L Hct 34.3 L MCV 87.7 MCH 29.7 MCHC 33.9 RDW 14.7 Plt Count 199 Neut % (Auto) 62.8 Lymph % (Auto) 21.4 L Gove % (Auto) 7.1 Eos % (Auto) 8.5 H Baso % (Auto) 0.2 Neut # (Auto) 4900 Lymph # (Auto) 1700 Gove # (Auto) 600 Eos # (Auto) 700 H Baso # (Auto) 0 Sodium 131 L Potassium 4.5 Chloride 99 Carbon Dioxide 27 BUN 25 H Creatinine 1.18 H Estimated GFR 45 L BUN/Creatinine Ratio 21.2 Glucose 113 H Calcium 9.3 Total Bilirubin 0.3 AST 25 ALT 30 Alkaline Phosphatase 62 Total Protein 6.4 Albumin 3.7 Globulin 2.7 Albumin/Globulin Ratio 1.4 [facility] Medical History Pneumonia involving right lung (~07/2025) Asthma Acute exacerbation of chronic obstructive pulmonary disease (~07/2024) Fall Chronic prescription benzodiazepine use Pulmonary nodule less than 6 mm in diameter with low risk for malignant neoplasm (~07/2020) Peripheral neuropathy Bronchitis Abnormal LFTs Restrictive lung disease Dysphagia, pharyngeal phase Obesity (BMI 30-39.9) Urinary incontinence (2004) Foot pain, left (2009) Ankle pain, left (2009) Lumbar spinal stenosis Cataract (03/2014) Hyperlipidemia Hypothyroidism 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) Essential tremor (05/19/15) Urge incontinence of urine (05/14/15) Chronic lumbar radiculopathy (08/26/14) Chronic left shoulder pain (12/25/17) Relationship problem with family member Internal hemorrhoids (~08/2020) Feared complaint without diagnosis Allergy to sulfa drugs Tinnitus (~2014) Chicken pox Mumps (1966) Surgical History History of esophagogastroduodenoscopy (EGD) (~03/2016) Anesthesia H/O abdominal surgery (03/2007) History of vaginal surgery (~2008) History of partial knee replacement (2007) History of partial knee replacement (2003) History of hip replacement (2001) History of hip replacement (1996) Status post hysterectomy with oophorectomy (1969) Family History Father Heart disease Pulmonary embolism Grandmother Heart disease Heart attack Sister Cancer Melanoma Grandmother No problems noted. Mother Dementia Grandfather Pneumonia Grandfather Dementia Daughter Depression Social History marital status: details: 07/22/2007 number of children: 1 household members: caregiver and none lives independently: [facility] pets and animals: No occupational status: previously employed Smoking Status: Never smoker alcohol intake: never substance use type: does not use Assessment & Plan Time-Based Coding :: [TOTAL MINUTES] spent with patient and on the chart (including review of chart, obtaining history, exam, reviewing outside data, placing orders, documenting exam and treatment plan, and counseling patient) on [DATE].
[2025-08-13] MEDS: FUROSEMIDE 20 MG TABLET PO (10:59)
[2025-08-13] MEDS: SERTRALINE 50 MG TABLET 150 MG PO (10:59)
[2025-08-13] MEDS: CHOLECALCIFEROL (VITAMIN D3) 1,000 UNIT TABLET 2000 UNIT PO ×2 (10:59→21:31)
--- NOTE | 2025-08-13 11:30 | PT.IPTN ---
Current Diagnoses Urinary tract infection, site not specified (08/12/25) Physical Therapy Treatment Note M2 PT-IP Current Condition Start: 08/11/25 15:36 Freq: NEEDED Status: Active Protocol: Document 08/11/25 15:36 KJ (Rec: 08/11/25 15:48 KJ [id number]) Physical Therapy Current Condition Current Condition Evaluation Date 08/11/25 Treatment Diagnosis Decreased activity tolerance M3 PT-IP Subjective Start: 08/11/25 15:36 Freq: NEEDED Status: Active Protocol: Document 08/13/25 11:30 AB (Rec: 08/13/25 13:48 AB [id number]) Subjective Physical Therapy Visit Type Type Treatment Note Visit Start Time 11:30 Visit Stop Time 11:45 Number of ADULT NURSE PRACTITIONER Visits 0 Physical Therapy Visit Comments Patient Comments agreeable to do PT; stated that she is hungry since she cannot eat for the stress test; offered a snack but pt declined and stated that her lunch is coming soon M4 PT-IP Mobility and Gait Start: 08/11/25 15:36 Freq: NEEDED Status: Active Protocol: Document 08/13/25 11:30 AB (Rec: 08/13/25 13:48 AB [id number]) PT-Transfer Assessment Sit to and From Stand Sit to and from Contact Guard Assistance,1 Person Assistance,Use of Stand Upper Extremities Equipment Transfer Assistive Gait Belt,Front Wheeled Walker Device Orthotic/Prosthetic No Devices or Brace: Comments Mobility Comments pt sitting on the chair and agreed to do PT. sit to stand CGA and ambulated in room using FWW CGA ~ 40 ft. slow paced gait. (+) SOB. O2 sat: 95%. pt refused further ambulation. sat back on chair. positioned pt on the chair. call light and table placed within reach . Gait Assessment Gait Gait Assistance Contact Guard Assist Required: Distance (Feet) 40 Able to Maintain Yes Weight Bearing Status During Gait Assistive Devices Assistive Device Gait Belt,Front Wheeled Walker Orthotic/Prosthetic No Devices or Brace: Gait Deviations General Gait Pattern Decreased Stride Length,Decreased Feet Clearance,Step- to Gait Factors Limiting Gait Function Factors Limiting Decreased Activity Tolerance,Decreased Strength,Poor Gait Function Balance,Poor Safety Awareness,Respiratory Distress M5 PT-IP Objective Assessments Start: 08/11/25 15:36 Freq: NEEDED Status: Active Protocol: Document 08/11/25 15:36 KJ (Rec: 08/11/25 15:48 KJ [id number]) Orientation Orientation/Cognition Level of Alertness Alert Orientation Name,Age,Birthday,Month,Date,Year,Day of Week,Place, Situation Language Function No Deficits Noted Ability Safety Awareness Understands Safety Issues Memory Description No Deficits Noted Gross Range of Motion Upper Extremity ROM Assessment Bilaterally Impaired Impairments Bilat shoulder, may be due to OA Lower Extremity ROM Assessment Within Functional Limits Strength Upper Extremity Strength Shoulder nt Elbow wfl Wrist wfl Hand wfl Lower Extremity Strength Assessment Within Functional Limits Coordination Assessment Gross Coordination Gross Coordination WNL M6 PT-IP Treatment Start: 08/11/25 15:36 Freq: NEEDED Status: Active Protocol: Document 08/13/25 11:30 AB (Rec: 08/13/25 13:48 AB [id number]) Physical Therapy Treatment Education Education Provided Safety M7 PT-IP Assessment and Plan Start: 08/11/25 15:36 Freq: NEEDED Status: Active Protocol: Document 08/13/25 11:30 AB (Rec: 08/13/25 13:48 AB [id number]) PT Summary Assessment and Plan Potential Rehabilitation Good Potential Summary Impairments Pain,ROM,Strength,Balance,Coordination,Sensation,Bed Mobility,Transfers,Gait,Activity Tolerance Progress Towards Progressing Toward Goals Goals Assessment Summary pt progressing with mobility and requiring CGA with ambulation using FWW. pt continues to have decrease activity tolerance affecting mobility independence. pt will benefit from SNF rehab to improve strength and independence. Goals Bed Mobility Goal Independent Transfer Goal Independent,Front Wheeled Walker Gait Goal Independent,Front Wheel Walker Gait Distance 50 Days to Meet Goals 10 Frequency of Treatment Frequency Of Once a Day Treatment Treatment Plan Physical Therapy Transfer Training,Gait Training,Therapeutic Exercise, Treatment Plan Discharge Planning,Neuromuscular Re-ed Recommendations To Nursing Amount of Assist 1 Person Assist Needed Discharge Recommendations PT Discharge SNF Rehab Recommendations Transportation Needs Private Vehicle,Wheelchair/Cabulance at Discharge - PT assist 1
[2025-08-13 11:44] LABS: Add Manual Diff / Slide Review NO; Hematocrit 36.6 % (36-46); Hemoglobin 12.4 g/dL (12.0-16.0); Lymphocytes Absolute Auto 1400 /uL (1100-4500); Mean Corpuscular HGB Conc 33.9 % (30-36); Mean Corpuscular Hemoglobin 29.9 PG (26-34); Mean Corpuscular Volume 88.1 fL (80-100); Platelet Count 208 X10^3/uL (150-400)
[2025-08-13 11:57] LABS: Alanine Aminotransferase 30 IU/L (<35); Albumin 3.9 g/dL (3.5-5.0); Albumin Globulin Ratio 1.4 (1.0-2.8); Alkaline Phosphatase 64 U/L (38-126); Blood Urea Nitrogen 21 mg/dL (7-17); Calcium 9.4 mg/dL (8.4-10.2); Carbon Dioxide 29 mmol/L (22-32); Chloride 99 mmol/L (98-107); Estimated Glomerular Filt Rate > 60 mL/min (>60); Globulin 2.7 g/dL (1.7-4.1); Glucose 95 mg/dL (70-99); HEMOLYSIS < 15 (0-50); Potassium 4.2 mmol/L (3.4-5.1); Sodium 135 mmol/L (137-145); Total Protein 6.6 g/dL (6.3-8.2)
--- NOTE | 2025-08-13 12:46 | CM.DPNOTE ---
DCP Cont Discharge to [facility] anticipated Monday08.15.25. Hospital exempt PASRR completd and signed by Dr Vargas. CM team following closely for coordination of discharge plan. SHERIE
--- NOTE | 2025-08-13 14:02 | OT.IP.TRT ---
Current Diagnoses Urinary tract infection, site not specified (08/12/25) Occupational Therapy Treatment Note M2 OT-IP Current Condition Start: 08/11/25 15:08 Freq: Status: Active Protocol: Document 08/11/25 15:08 IS[facility]ELL[facility] (Rec: 08/11/25 15:31 [facility]A Desktop) Occupational Therapy Current Condition Current Condition Evaluation Date 08/11/25 Treatment Diagnosis UTI, COPD, CHF, decreased self care Diagnosis Onset Date 08/10/25 M3 OT- IP Subjective and Pain Start: 08/11/25 15:08 Freq: Status: Active Protocol: Document 08/13/25 13:54 [facility] (Rec: 08/13/25 14:01 [facility] Desktop) OT- Subjective Occupational Therapy Visit Type Type Treatment Note Visit Start Time 13:25 Visit Stop Time 13:53 Occupational Therapy Visit Comments Patient Comments Pt wanting to use the bathroom and brush her teeth. Patient/Caregiver To go to skilled rehab. Goals OT Pain Assessment Pain When Pain Assessed At Rest Pain Present Pain Present Denied Pain M4 OT- IP ADL's Start: 08/11/25 15:08 Freq: Status: Active Protocol: Document 08/13/25 13:54 [facility] (Rec: 08/13/25 14:01 [facility] Desktop) OT ADL-Grooming General Evaluation Grooming Ability Standby Assistance Areas Needing Retrieving/Set-up of Grooming Items Assistance Comments OT Grooming Comments Able to do while standing at the sink with FWW. OT ADL-Oral Care General Eval Oral Care Ability Independent OT ADL-Dressing General Eval Lower Body Dressing Moderate Assistance Ability Areas Needing Underpants/Brief Assistance Comments OT Dressing Comments Assist to help get her brief over her feet. OT ADL-Toileting General Evaluation Toileting Ability Moderate Assistance Areas Needing Manage Clothing Assistance Comments OT Toileting Assist for completeness with wiping from behind. Also Comments to help get her brief over her feet. M5 OT- IP IADL's Start: 08/11/25 15:08 Freq: Status: Active Protocol: Document 08/11/25 15:08 ISABELLA (Rec: 08/11/25 15:31 [facility] Desktop) OT-Instrumental Activities of Daily Living Deficits IADL Deficits No Deficits Identified Home Safety Awareness Awareness of Need Good Awareness for Assistance at Home Medication Management Medication No Deficits Identified Management Money Management Money Management No Deficits Identified Meal Preparation Meal Preparation May need assist on dc, may benefit from service like Comments meals on wheels [employer] Operator Caregiver Provides Assist Driving Driving Caregiver Provides Assist M6 OT- IP Functional Cognition Start: 08/11/25 15:08 Freq: Status: Active Protocol: Document 08/13/25 13:54 [facility] (Rec: 08/13/25 14:01 [facility] Desktop) Cognitive Factors Limiting Selfcare Function Cognitive Comments Cognitive Assessment Intact Comments M7 OT- IP Mobility and Balance Start: 08/11/25 15:08 Freq: Status: Active Protocol: Document 08/13/25 13:54 [facility] (Rec: 08/13/25 14:01 [facility] Desktop) OT- Bed Mobility Assessment Supine to Sit Supine to Sit Assist Contact Guard Assistance Scooting Scooting to Edge of Standby Assistance Bed OT-Transfer Assessment Sit to and From Stand Sit to and from Contact Guard Assistance Stand Transfers Transfer Ability Contact Guard Assistance Technique Transfer Destination Bed,Chair,Toilet Transfer Technique Stand Step Pivot Devices Transfer Assistive Gait Belt,Front Wheeled Walker Devices Comments Mobility Comments Pt needing lots of momentum and able to come to stand with CGA. Once on her feet CGA to close SBA with FWW. Pt normally uses a lift recliner a home and educated her as she is getting stronger best to not use the lift component unless she needs to. Therefore pt can improve her overall BLE strength for assist with ADl and mobility needs. OT- Balance Assessment Sitting Balance and Reactions Static Sitting Normal Balance Ability Dynamic Sitting Good Balance Ability Standing Balance and Reactions Static Standing Good Balance Ability Dynamic Standing Fair Balance Ability M8 OT- IP Objective Assessments Start: 08/11/25 15:08 Freq: Status: Active Protocol: Document 08/11/25 15:08 [facility] (Rec: 08/11/25 15:31 [facility] Desktop) OT Gross Range of Motion Upper Extremity Range of Motion Assessment Bilaterally Impaired ROM Impairments B shoulders ~90 active flexion OT Strength Upper Extremity Strength Assessment Bilaterally Impaired Shoulder B 3 Elbow B 4- Hand B 4 Hand Child Care Team Lead Strength Hand Dominance Right OT-Muscle Tone Assessment Muscle Tone WNL Yes OT Sensation Assessment Edema Edema Absent M9 OT- IP Assessment and Plan Start: 08/11/25 15:08 Freq: Status: Active Protocol: Document 08/13/25 13:54 [facility] (Rec: 08/13/25 14:01 [facility] Desktop) OT Summary Assessment and Plan Potential Rehabilitation Good Potential Analytic Complexity Low at Evaluation Summary OT Impairments Pain,Range of Motion,Strength,Balance,Functional Mobility,Self-Feeding,Grooming,Dressing,Toileting, Bathing,Toilet Transfers,Shower Transfers,Activity Tolerance Progress Towards Progressing Toward Goals Goals Assessment Summary Pt needing CGA assist for mobility and transfer with FWW. Pt still needing MODA for dressing needs. Pt is very cooperative and motivated to get better. Pt to go to skilled rehab when medically stable. Goals Grooming Goal Independent Dressing Goal Independent,Long Handled Shoe Horn,Ribbon Lapper Tender,Sock Aid Toileting Goal Independent Bathing Goal Independent Toilet Transfer Goal Independent Days to Meet Goals 10 Frequency of Treatment Other frequency 5x/wk Treatment Plan OT Treatment Plan ADL Training,Functional Mobility,Therapeutic Exercises, Patient/Family Education,Discharge Planning Discharge Recommendations OT Discharge SNF Rehab Recommendations Transportation Needs Private Vehicle,Wheelchair/Cabulance at Discharge
[2025-08-13] MEDS: ATORVASTATIN 20 MG TABLET PO (21:30)
[2025-08-13] MEDS: SODIUM CHLORIDE 0.9% FLUSH 10 ML IV (21:34)
--- NOTE | 2025-08-13 23:55 | PC.NURSE ---
Patient is alert and oriented. [place] so is wearing bilateral hearing aids and able to hear well. Breath sounds CTA with RA sat of 95%. HRR. Denied nausea. BT hypoactive but is passing flatus and reports having had BM earlier today. Is voiding without dysuria but states she has some frequency/urgency related to use of Lasix. Is able to get up to bathroom/chair with walker and SBA. Denied pain. Bruising noted on all extremities. Has Mediplex dressing to coccyx but no erythema or skin breakdown noted. Is able to reposition herself in bed. Has chronic bilateral foot neuropathy. Bilateral calf SCD's applied when she went to bed for the night. Fall risk score is high and bed alarm is activated.
[2025-08-14] VITALS (8 sets, daily range): BP systolic 95–134; BP diastolic 54–72; PULSE 70–80; RESP 15–20; TEMP 35.8–36.1; O2SAT 91–97
[2025-08-14] MEDS: PANTOPRAZOLE DR 20 MG TABLET PO (05:46)
[2025-08-14] MEDS: VIT C/E/ZN/COPPR/LUTEIN/ZEAXAN CAPSULE 2 CAP PO (08:39)
[2025-08-14] MEDS: oxyBUTYnin ER 5 MG TABLET 10 MG PO (08:39)
[2025-08-14] MEDS: PHENAZOPYRIDINE 100 MG TABLET 200 MG PO ×3 (08:40→22:09)
[2025-08-14] MEDS: HEPARIN 5,000 UNIT/ML VIAL 5000 UNIT SUBCUT ×2 (08:40→22:08)
[2025-08-14] MEDS: ALBUTEROL/IPRATROPIUM 3 ML AMPUL INH ×3 (08:40→19:29)
[2025-08-14] MEDS: SERTRALINE 50 MG TABLET 150 MG PO (08:40)
[2025-08-14] MEDS: CHOLECALCIFEROL (VITAMIN D3) 1,000 UNIT TABLET 2000 UNIT PO ×2 (08:40→22:08)
[2025-08-14] MEDS: MELOXICAM 7.5 MG TABLET 15 MG PO (08:40)
--- NOTE | 2025-08-14 08:43 | PT-IP ANOTE ---
Per RN, pt leaving soon for stress test, will attempt to see later today.
[2025-08-14] MEDS: BUDESONIDE 0.5 MG/2 ML NEB INH ×2 (08:50→19:28)
[2025-08-14] MEDS: SODIUM CHLORIDE 0.9% FLUSH 10 ML IV (09:18)
[2025-08-14] MEDS: FUROSEMIDE 20 MG TABLET PO (10:52)
--- NOTE | 2025-08-14 13:33 | OT.IPNOTE ---
Attempted to see pt and states too tired from just completing 2nd stress test. Able to loosen her brief and place barrier cream on the area from the tight brief. NO charge. Nursing aid notified.
--- NOTE | 2025-08-14 13:55 | PT-IP ANOTE ---
Pt refuses PT at this time, very sleepy following stress test this morning. Pt falling asleep in chair. Will try again tomorrow.
--- NOTE | 2025-08-14 15:27 | PM.PN.1 ---
Subjective Subjective Interval history: S: She did well with her stress test which produced normal results. She does feel fatigued because of a busy day. She denies any nausea or dyspnea. O: NAD, alert and oriented. Fluent speech. Lungs are clear, normal rate and effort. Heart is regular, no murmur gallop or rub. Abdomen is soft, non distended. Extremities are free of edema. IMAGING: Nuclear stress test was low risk study. A/P: 1. Recurrent Proteus UTI, improving. Blood cultures negative 2. Chest pain and shortness for breath, resolved. Stress test normal. Chronic medical conditions, stable: COPD Chronic diastolic congestive heart failure Obesity Class 2 PLAN: -continue antibiotics -discharge to [facility]. 08/15. Exam Vital Signs (past 8 hours): - 08/14/25 08:40 08/14/25 08:53 08/14/25 12:45 Temperature 96.6 F L Pulse Rate 80 70 78 Respiratory Rate 20 15 20 Blood Pressure 134/72 Pulse Oximetry 97 92 96 Oxygen Delivery Method Room Air Room Air Oxygen Flow Rate 0 Fraction of Inspired Oxygen 21 SaO2/FiO2 Ratio 452 Oxygen Delivery Method Room Air Oxygen Flow Rate 0 Objective Labs 08/13/25 11:20 08/13/25 11:20 [facility] Medical History Pneumonia involving right lung (~07/2025) Asthma Acute exacerbation of chronic obstructive pulmonary disease (~07/2024) Fall Chronic prescription benzodiazepine use Pulmonary nodule less than 6 mm in diameter with low risk for malignant neoplasm (~07/2020) Peripheral neuropathy Bronchitis Abnormal LFTs Restrictive lung disease Dysphagia, pharyngeal phase Obesity (BMI 30-39.9) Urinary incontinence (2004) Foot pain, left (2009) Ankle pain, left (2009) Lumbar spinal stenosis Cataract (03/2014) Hyperlipidemia Hypothyroidism 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) Essential tremor (05/19/15) Urge incontinence of urine (05/14/15) Chronic lumbar radiculopathy (08/26/14) Chronic left shoulder pain (12/25/17) Relationship problem with family member Internal hemorrhoids (~08/2020) Feared complaint without diagnosis Allergy to sulfa drugs Tinnitus (~2014) Chicken pox Mumps (1966) Surgical History History of esophagogastroduodenoscopy (EGD) (~03/2016) Anesthesia H/O abdominal surgery (03/2007) History of vaginal surgery (~2008) History of partial knee replacement (2007) History of partial knee replacement (2003) History of hip replacement (2001) History of hip replacement (1996) Status post hysterectomy with oophorectomy (1969) Family History Father Heart disease Pulmonary embolism Grandmother Heart disease Heart attack Sister Cancer Melanoma Grandmother No problems noted. Mother Dementia Grandfather Pneumonia Grandfather Dementia Daughter Depression Social History marital status: details: 07/22/2007 number of children: 1 household members: caregiver and none lives independently: [facility] pets and animals: No occupational status: previously employed Smoking Status: Never smoker alcohol intake: never substance use type: does not use Assessment & Plan Time-Based Coding :: [TOTAL MINUTES] spent with patient and on the chart (including review of chart, obtaining history, exam, reviewing outside data, placing orders, documenting exam and treatment plan, and counseling patient) on [DATE].
--- NOTE | 2025-08-14 19:32 | DI.NM.S_ITS ---
DATE OF SERVICE: 08/14/2025 PHARMACOLOGICAL PERFUSION STUDY INDICATION: Chest pain, shortness of breath. RADIOPHARMACEUTICAL: 26.1 millicurie technetium-99m Myoview IV was injected at stress and 26.5 millicurie technetium-99m Myoview IV was injected at rest. Two days protocol. CARDIAC STRESS: The patient underwent IV Lexiscan perfusion study under the supervision of an attending staff using standard Lexiscan protocol. She remained hemodynamically stable. Baseline blood pressure 118/78. Baseline rhythm sinus with incomplete right bundle-branch block. During stress, no convincing ischemic EKG changes seen. No significant arrhythmias. The patient had minimal dyspnea. No chest discomfort. RAW DATA: There is a significant large breast shadow seen. The patient's weight is 230 pounds. GATED STUDY: Resting LV ejection fraction 75% and stress LV ejection fraction 77% without any obvious wall motion abnormalities. Resting end- diastolic volume 80 mL. TID ratio 0.92, which is within normal limits. MYOCARDIAL PERFUSION SCAN: Stress supine and resting supine images were compared to each other. There is no stress prone images. There appears to be predominantly fixed small size, moderately decreased perfusion of distal anterior septum extending into the apex as well as small size, mildly decreased perfusion of base to mid inferolateral wall. CONCLUSION: No obvious reversible ischemia. There is a predominantly fixed distal anterior septum, apical and base to mid inferolateral defect. On raw images, large breast shadow seen engulfing the entire heart. The patient's weight is 230 pounds. On gated study, preserved LV function without any wall motion abnormalities. Hence, most likely we are dealing with tissue attenuation artifact. There was no stress prone images. The patient had a perfusion study in April 2019, at that time also she had predominantly fixed apical defect. Overall, not a high risk study. No ischemic EKG changes. No chest pain. Discussed the finding with Dr. Toño Vargas. Correlate clinically. Petty Christy - YAKELIN/carly/NARESH doc#: [id number]/job#: [id number] dd: 08/14/2025 12:20:00 dt: 08/14/2025 19:20:00 DICTATING MD/COPIES TO: Lurdes Lozano MD COPIES MNE: ESTRADA;
[2025-08-14] MEDS: ATORVASTATIN 20 MG TABLET PO (22:09)
[2025-08-15] MEDS: SODIUM CHLORIDE 0.9% FLUSH 10 ML IV ×2 (00:30→09:49)
[2025-08-15 01:17] VITALS: BP 105/69; PULSE 86; RESP 21; O2SAT 91
[2025-08-15] MEDS: PANTOPRAZOLE DR 20 MG TABLET PO (05:46)
[2025-08-15 07:00] VITALS: O2SAT 96
[2025-08-15 08:39] VITALS: BP 108/60; PULSE 70; RESP 16; TEMP 35.7; O2SAT 96
[2025-08-15] MEDS: BUDESONIDE 0.5 MG/2 ML NEB INH (09:25)
[2025-08-15 09:26] VITALS: PULSE 75; RESP 16; O2SAT 96
[2025-08-15] MEDS: ALBUTEROL/IPRATROPIUM 3 ML AMPUL INH ×2 (09:26→13:13)
[2025-08-15] MEDS: PHENAZOPYRIDINE 100 MG TABLET 200 MG PO (09:47)
[2025-08-15] MEDS: VIT C/E/ZN/COPPR/LUTEIN/ZEAXAN CAPSULE 2 CAP PO (09:47)
[2025-08-15] MEDS: HEPARIN 5,000 UNIT/ML VIAL 5000 UNIT SUBCUT (09:47)
[2025-08-15] MEDS: SERTRALINE 50 MG TABLET 150 MG PO (09:48)
[2025-08-15] MEDS: MELOXICAM 7.5 MG TABLET 15 MG PO (09:48)
[2025-08-15] MEDS: oxyBUTYnin ER 5 MG TABLET 10 MG PO (09:48)
[2025-08-15] MEDS: FUROSEMIDE 20 MG TABLET PO (09:48)
[2025-08-15] MEDS: CHOLECALCIFEROL (VITAMIN D3) 1,000 UNIT TABLET 2000 UNIT PO (09:49)
--- NOTE | 2025-08-15 11:23 | PM.DS.1 ---
History of Present Illness History of Present Illness Chief complaint: SOB, wheezing, RT leg (knee to ankle) painful Narrative: From H&P: Chief complaint: Malaise fatigue urinary burning and leg pain with evidence of UTI and leukocytosis History of present illness: 08/10: 89-year-old female recently discharged for congestive heart failure and COPD exacerbation and did quite well until about 3 days ago started developing dysuria fatigue leg pain and weakness dyspnea with activity with rigors and chills. Patient had some leftover Macrobid and started taking that but her symptoms continued to escalate and came to the emergency room 08/10. Findings in the emergency room significant for leukocytosis white count [id number] with 81% neutrophils urinalysis was demonstrates pyuria nitrates and bacteriuria. Remainder for metabolic and hemogram were unremarkable CT imaging of the chest did not show infiltrate pulmonary edema pulmonary embolus and venous Dopplers of both lower extremities were clear for deep venous thrombosis Patient was admitted for UTI with probable early sepsis as started on ceftriaxone after blood culture drawn. Discharge Providers Provider Date of admission: 08/12/25 11:44 Discharge Date: 08/15/25 Primary care physician: Ariella Boo DO Consults: 08/10/25 19:07 Consult to Pharmacy Routine Comment: consult meds 08/11/25 11:46 Consult to Occupational Therapy Evaluate & Treat Comment: Physician Instructions: Evaluate and treat Consult to Physical Therapy Evaluate & Treat Comment: Physician Instructions: Evaluate and Treat Discharge provider: Haile Vargas MD Summary Hospital Course Discharge Diagnosis: 1. 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 with urinary symptoms and a white count [id number], improving. 2. Chest pain and shortness for breath, resolved. Stress test, normal Chronic medical conditions, stable: COPD Morbid obesity Chronic diastolic congestive heart failure Anxiety Hospital Course: 08/11: Improvement overall in fatigue and malaise still feeling very weak needs assistance to stand 08/12: Episode of chest pain last night advance sensation across the chest EKG was obtained which is no change from previous EKGs troponin was negative patient was set up for a stress test Urine culture positive for Proteus 1. Proteus mirabilis M.I.C. RX --------- --- * Amoxicillin/Clavulanate <=2 S * Ampicillin <=2 S * Cefazolin 4 I * Cefepime E-test 0.125 S * Ceftriaxone <=0.25 S * Ciprofloxacin <=0.06 S * Ertapenem <=0.12 S * Gentamicin <=1 S * Levofloxacin <=0.12 S * Meropenem <=0.25 S * Nitrofurantoin 128 R * Tetracycline >=16 R * Trimethoprim/Sulfamethoxazole <=20 S * Piperacillin/Tazobactam <=4 S 08/13-: Continued improvement, ongoing weakness. Stable for discharge to [facility] facility. Status at Discharge Cognitive/behavioral status at discharge: oriented Functional status at discharge: uses cane/walker Overall status at discharge: patient is progressing back to baseline Time Spent with Patient Time spent: Greater than 30 minutes Exam Vital Signs (past 8 hours): - 08/15/25 07:00 08/15/25 08:39 08/15/25 09:26 Temperature 96.2 F L Pulse Rate 70 75 Respiratory Rate 16 16 Blood Pressure 108/60 Pulse Oximetry 96 96 96 Oxygen Delivery Method Room Air Room Air Oxygen Flow Rate 0 Fraction of Inspired Oxygen 21 SaO2/FiO2 Ratio 452 Oxygen Delivery Method Room Air Oxygen Flow Rate 0 Narrative Exam Narrative: NAD, alert and oriented. Fluent speech. Lungs are clear, normal rate and effort. Heart is regular, no murmur gallop or rub. Abdomen is soft, non distended. Extremities are free of edema. Objective Labs 08/13/25 11:20 08/13/25 11:20 [facility] Medical History Pneumonia involving right lung (~07/2025) Asthma Acute exacerbation of chronic obstructive pulmonary disease (~07/2024) Fall Chronic prescription benzodiazepine use Pulmonary nodule less than 6 mm in diameter with low risk for malignant neoplasm (~07/2020) Peripheral neuropathy Bronchitis Abnormal LFTs Restrictive lung disease Dysphagia, pharyngeal phase Obesity (BMI 30-39.9) Urinary incontinence (2004) Foot pain, left (2009) Ankle pain, left (2009) Lumbar spinal stenosis Cataract (03/2014) Hyperlipidemia Hypothyroidism 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) Essential tremor (05/19/15) Urge incontinence of urine (05/14/15) Chronic lumbar radiculopathy (08/26/14) Chronic left shoulder pain (12/25/17) Relationship problem with family member Internal hemorrhoids (~08/2020) Feared complaint without diagnosis Allergy to sulfa drugs Tinnitus (~2014) Chicken pox Mumps (1966) Surgical History History of esophagogastroduodenoscopy (EGD) (~03/2016) Anesthesia H/O abdominal surgery (03/2007) History of vaginal surgery (~2008) History of partial knee replacement (2007) History of partial knee replacement (2003) History of hip replacement (2001) History of hip replacement (1996) Status post hysterectomy with oophorectomy (1969) Family History Father Heart disease Pulmonary embolism Grandmother Heart disease Heart attack Sister Cancer Melanoma Grandmother No problems noted. Mother Dementia Grandfather Pneumonia Grandfather Dementia Daughter Depression Social History marital status: details: 07/22/2007 number of children: 1 household members: caregiver and none lives independently: [facility] pets and animals: No occupational status: previously employed Smoking Status: Never smoker alcohol intake: never substance use type: does not use Discharge Assessment & Plan Assessment and Plan Assessment: 1. UTI 2. Weakness. Plan of Treatment: Discharge to [facility] facility. Many of her chronic medications are continued at current dosing including Ativan b.i.d., quetiapine, and antidepression medication. Discharge Plan Discharge Plan Patient Disposition: SNF Transfer to: [facility] Under care of provider: Facility provider Provider Discharge Comment: Stable for discharge to [facility] facility for rehabilitative efforts. Discharge orders & Medications Prescriptions: New lorazepam 0.5 mg Tablet 0.5 mg PO Q12H Qty: 14 0RF amoxicillin 500 mg tablet 500 mg PO Q8H Qty: 20 0RF Continued (DME) Disabled Parking Permit See Rx Instructions .ROUTE .MEDSUPPLY Qty: 1 0RF Rx Instructions: Valid for 5 years sertraline 100 mg tablet See Rx Instructions .ROUTE .COMPLEX Qty: 135 0RF Dose Instruction: TAKE 1& 1/2 TABLETS(150MG) BY MOUTH DAILY Rx Instructions: TAKE 1& 1/2 TABLETS(150MG) BY MOUTH DAILY meloxicam 15 mg tablet 15 mg PO DAILY Qty: 90 1RF omeprazole 20 mg capsule,delayed release(DR/EC) 20 mg PO DAILY Qty: 90 1RF olanzapine 2.5 mg tablet 2.5 mg PO DAILY Qty: 90 1RF simvastatin 40 mg tablet 40 mg PO BEDTIME Qty: 90 3RF tolterodine 4 mg capsule,extended release 24hr 4 mg PO DAILY Qty: 90 1RF trazodone 50 mg tablet 25 mg PO BEDTIME PRN (Reason: insomnia) Qty: 45 1RF estradiol 0.01 % (0.1 mg/gram) cream 0.5 g vaginal 2XW PRN (Reason: UTI prevention) Qty: 42.5 0RF Rx Instructions: Apply thin layer periurethra quetiapine 50 mg tablet 50 mg PO .COMPLEX MDD 100mg Qty: 120 3RF Rx Instructions: 50 mg orally every night; may take an extra dose as needed for difficulty sleeping; furosemide [Lasix] 20 mg tablet 20 mg PO QAM Qty: 90 3RF ipratropium-albuterol 0.5 mg-3 mg(2.5 mg base)/3 mL solution for nebulization 3 ml inhalation QID Qty: 180 1RF albuterol sulfate 90 mcg/actuation HFA aerosol inhaler 2 puff INHALATION Q4-6H PRN (Reason: shortness of breath or wheezing) Qty: 18 1RF biotin 500 mcg capsule 1 mg PO BID PreserVision AREDS [id number] Tablet 2 tab PO DAILY cholecalciferol (vitamin D3) [Vitamin D3] 50 mcg (2,000 unit) capsule 150 mcg PO BID Discontinued lorazepam 0.5 mg tablet 0.5 mg PO Q12H Medication counseling provided by Pharmacist: No Follow up/Referrals: Ariella Boo DO [Primary Care Provider, Medical] Discharge Health Status Multidrug resistant organism: No MDRO Diet/Activity/Treatments Diet: Low-sodium Skin/Wound/Dressing Care Report to your healthcare provider any signs of infection, such as:: chills, fever Special Rehabilitation Services Reason for rehabilitation: Recovery r/t decondition Rehab type: Physical therapy and Occupational therapy Visit Report/Discharge Packet Instructions: DI for Urinary Tract Infection (UTI) Stand Alone Forms: Patient Portal/API Discharge Data Primary Care Provider: Ariella Boo
--- NOTE | 2025-08-15 11:45 | PT.IPTN ---
Current Diagnoses Urinary tract infection, site not specified (08/12/25) Physical Therapy Treatment Note M2 PT-IP Current Condition Start: 08/11/25 15:36 Freq: NEEDED Status: Active Protocol: Document 08/11/25 15:36 KJ (Rec: 08/11/25 15:48 KJ [id number]) Physical Therapy Current Condition Current Condition Evaluation Date 08/11/25 Treatment Diagnosis Decreased activity tolerance M3 PT-IP Subjective Start: 08/11/25 15:36 Freq: NEEDED Status: Active Protocol: Document 08/15/25 11:45 AB (Rec: 08/15/25 12:51 AB [id number]) Subjective Physical Therapy Visit Type Type Treatment Note Visit Start Time 11:45 Visit Stop Time 11:57 Number of LEATHER GRAINER Visits 0 M4 PT-IP Mobility and Gait Start: 08/11/25 15:36 Freq: NEEDED Status: Active Protocol: Document 08/15/25 11:45 AB (Rec: 08/15/25 12:51 AB [id number]) PT-Transfer Assessment Sit to and From Stand Sit to and from Contact Guard Assistance,1 Person Assistance,Use of Stand Upper Extremities Equipment Transfer Assistive Gait Belt,Front Wheeled Walker Device Orthotic/Prosthetic No Devices or Brace: Comments Mobility Comments checked on pt and stated that she is not feeling too well today compared to yesterday but want to get up and walk. sit to stand CGA and ambulated in room using FWW CGA ~ 45 ft. pt sat back on chair. positioned on the chair. pt presents with slower paced gait today and seems to have decrease tolerance compared to previous PT sessions. call light and table placed within reach. Gait Assessment Gait Gait Assistance Contact Guard Assist Required: Distance (Feet) 45 Able to Maintain Yes Weight Bearing Status During Gait Assistive Devices Assistive Device Gait Belt,Front Wheeled Walker Orthotic/Prosthetic No Devices or Brace: Gait Deviations General Gait Pattern Decreased Stride Length,Decreased Feet Clearance Factors Limiting Gait Function Factors Limiting Decreased Activity Tolerance,Difficulty Following Gait Function Directions,Limited Range of Motion,Poor Balance,Poor Safety Awareness M5 PT-IP Objective Assessments Start: 08/11/25 15:36 Freq: NEEDED Status: Active Protocol: Document 08/11/25 15:36 KJ (Rec: 08/11/25 15:48 KJ [id number]) Orientation Orientation/Cognition Level of Alertness Alert Orientation Name,Age,Birthday,Month,Date,Year,Day of Week,Place, Situation Language Function No Deficits Noted Ability Safety Awareness Understands Safety Issues Memory Description No Deficits Noted Gross Range of Motion Upper Extremity ROM Assessment Bilaterally Impaired Impairments Bilat shoulder, may be due to OA Lower Extremity ROM Assessment Within Functional Limits Strength Upper Extremity Strength Shoulder nt Elbow wfl Wrist wfl Hand wfl Lower Extremity Strength Assessment Within Functional Limits Coordination Assessment Gross Coordination Gross Coordination WNL M6 PT-IP Treatment Start: 08/11/25 15:36 Freq: NEEDED Status: Active Protocol: Document 08/15/25 11:45 AB (Rec: 08/15/25 12:51 AB [id number]) Physical Therapy Treatment Education Education Provided Safety M7 PT-IP Assessment and Plan Start: 08/11/25 15:36 Freq: NEEDED Status: Active Protocol: Document 08/15/25 11:45 AB (Rec: 08/15/25 12:51 AB [id number]) PT Summary Assessment and Plan Potential Rehabilitation Fair Potential Summary Impairments Pain,ROM,Strength,Balance,Coordination,Sensation,Tone, Cognition,Bed Mobility,Transfers,Gait,Activity Tolerance Progress Towards Slow Progress due to Medical Issues,Slow Progress due Goals to Activity Tolerance Assessment Summary pt requiring CGA with ambulation using FWW. pt presents with decrease activity tolerance affecting mobility independence. pt plans to d/c to SNF rehab. Goals Bed Mobility Goal Independent Transfer Goal Independent,Front Wheeled Walker Gait Goal Independent,Front Wheel Walker Gait Distance 50 Days to Meet Goals 10 Frequency of Treatment Frequency Of Once a Day Treatment Treatment Plan Physical Therapy Transfer Training,Gait Training,Therapeutic Exercise, Treatment Plan Discharge Planning,Neuromuscular Re-ed Recommendations To Nursing Amount of Assist 1 Person Assist Needed Discharge Recommendations PT Discharge SNF Rehab Recommendations Transportation Needs Private Vehicle,Wheelchair/Cabulance at Discharge - PT assist 1
--- NOTE | 2025-08-15 12:31 | CM.DPNOTE ---
DC Note Patient has been discharged to [facility] and remains agreeable to plan. Emailed SNF orders to [email or web address] and [email or web address] who are covering for [facility] in admissions. Included SNF order/Discharge report, DC Summary, completed hospital exempt PASRR and med list. Hospital exempt PASRR faxed via [employer] to Sanam Guerrero PASRR consultant teacher. Bedside RN updated, calling report. Plan: Discharge to [facility] via transport- picker tender helper at 3pm. JW
[2025-08-15 13:13] VITALS: PULSE 82; RESP 16; O2SAT 96
--- NOTE | 2025-08-15 15:07 | PC.NURSE ---
Addendum entered by Ramila Paz RN 08/15/25 15:30: Called admit coordinator at [facility] with help from LEARNING AND DEVELOPMENT COORDINATOR; determined that 's report phone line is down. Gave report to ARIADNA Schwab. Addendum entered by Ramila Paz RN 08/15/25 15:20: Attempted to call Rehab again; no pickup Addendum entered by Ramila Paz RN 08/15/25 15:12: PIV removed; pt tolerated well. All belongings with patient. No belongings in safe, drawer, or pharmacy. [facility]; pt escorted via by ALFRED Bermudez out to facility vehicle for transport. Original Note: Called at 1453, 1503, and 1507 to give report to [facility], no answer. Confirmed phone number [phone] with karthik Dubose.
== END 2025-08-15 14:55 | DRG 872 ==
LOC: ED 17:54 → AC 17:56
PROVIDERS: Emergency Medicine; Internal Medicine; Admitting Provider Internal Medicine; Emergency Provider Emergency Medicine; PCP Family Medicine; Referring Provider Emergency Medicine; Visit Provider Internal Medicine
DX: A41.9 Sepsis, unspecified organism (principal); N39.0 Urinary tract infection, site not specified; I50.32 Chronic diastolic (congestive) heart failure; J44.9 Chronic obstructive pulmonary disease, unspecified; E66.01 Morbid (severe) obesity due to excess calories; R07.9 Chest pain, unspecified; B96.4 Proteus (mirabilis) (morganii) as the cause of diseases classified elsewhere; E78.5 Hyperlipidemia, unspecified; G47.00 Insomnia, unspecified; F41.9 Anxiety disorder, unspecified; Z68.36 Body mass index [BMI] 36.0-36.9, adult; Z87.440 Personal history of urinary (tract) infections; Z66 Do not resuscitate
CPT/HCPCS: 36415; 71045; 71275; 76770; 78452; 80053; 81001; 83605; 83880; 84145; 84484; 85007; 85025; 85610; 87040; 87077; 87086; 87186; 93005; 93017; 93970; 94640; 94760; 96365; 96375; 97116; 97162; 97165; 97530; 97535; 99284; G0378; A9502; J0696; J1644; J2270; J2543; J2785; J2919; J7050; Q9967

== ENCOUNTER 2025-09-03 09:39 | Inpatient (IN) | payer MEDICARE, OTHER, SELFPAY ==
[2025-08-10 18:58] VITALS: BMI 36.0
[2025-09-03] VITALS (18 sets, daily range): BP systolic 113–173; BP diastolic 65–118; PULSE 77–99; RESP 15–33; TEMP 36.4–36.9; O2SAT 91–95; BMI 36.0; BMI 37.8
--- NOTE | 2025-09-03 09:57 | EKG_ITS ---
[place] [id number] [place] [id number] Test Date: 2025-09-03 Pat Name: Petty Monroe Department: [facility] Room: Gender: Female Front End Specialist: YAMILETH : 1935 Requested By: Order Number: [id number] Reading MD: Zaheer Betancourt MD Measurements Intervals [place] Rate: 73 P: 45 KS: 158 QRS: -19 QRSD: 124 T: 8 QT: 412 QTc: 453 Interpretive Statements Normal sinus rhythm Right bundle branch block Electronically Signed On 09-04-2025 7:36:16 PDT by Zaheer Betancourt MD
--- NOTE | 2025-09-03 09:58 | ED_ITS ---
HPI - SOB/Dyspnea General Chief Complaint: Shortness of Breath/Dyspnea Stated Complaint: copd, wheezing, coughing Time Seen by Provider: 09/03/25 09:44 History of Present Illness HPI Narrative: Patient brought here from home by home health care provider for shortness of breath and wheezing. Ongoing for the past couple of days. Patient's POLST form on file states DNR with comfort measures only but she states it is not comfort measures it is selective treatments. She will make changes to her document. Patient has history of CHF COPD. Patient admitted 1 month ago for COPD exacerbation and then she came back and was admitted for UTI. She was discharged to [facility] and was discharged home August 28, 2025. Has been doing well until a couple days ago she feels her COPD has flared up again. No known sick contacts. She has been doing her breathing treatments at home. She is not on home oxygen. Patient denies any chest pain. Regarding her CHF, she does not feel like she has been retaining fluid more than usual. She has audible wheezing. No urinary complaints. Related Data Home Medications ?Medication ?Instructions ?Recorded ?Confirmed vitamins A,C,F-rydv-pvlggz 2,148 2 tab PO DAILY 09/03/25 mcg-113 mg-45 mg-17.4 mg tablet (PreserVision AREDS) cholecalciferol (vitamin D3) 50 150 mcg PO BID 4 09/03/25 mcg (2,000 unit) capsule (Vitamin D3) Previous Rx's ?Medication ?Instructions ?Recorded Disabled Parking Permit #1 ea 02/21/22 meloxicam 15 mg tablet 15 mg PO DAILY #90 tabs 12/15 06/06 olanzapine 2.5 mg tablet 2.5 mg PO DAILY #90 tabs omeprazole 20 mg capsule,delayed 20 mg PO DAILY #90 ca ps 01/09/25 release simvastatin 40 mg tablet 40 mg PO BEDTIME #90 tabs tolterodine 4 mg capsule,extended 4 mg PO DAILY #90 ca ps 01/09/25 release 24 hr trazodone 50 mg tablet 25 mg (1/2 x 50 mg) PO BEDTI ME PRN 01/09/25 insomnia #45 tabs albuterol sulfate 90 mcg/actuation 2 puff inhalation Q 4-6H PRN 04/08/25 aerosol inhaler shortness of breath or wheez ing #18 grams ipratropium 0.5 mg-albuterol 3 mg 3 ml inhalation QID #180 mL 04/08/25 (2.5 mg base)/3 mL nebulization soln sertraline 100 mg tablet See Rx Instructions .Route 0 04/10/25 .COMPLEX #135 tabs estradiol 0.01% (0.1 mg/gram) 0.5 g vaginal 2XW PRN UT I 04/18/25 vaginal cream prevention #42.5 grams furosemide 20 mg tablet (Lasix) 20 mg PO QAM #90 tabs 06/11/25 quetiapine 50 mg tablet 50 mg PO .COMPLEX #120 tabs 06/11/25 lorazepam 0.5 mg tablet 0.5 mg PO Q12H #14 tabs 02/04 Allergies Allergy/AdvReac Type Severity Reaction Status Date / Time digoxin (DIGOXIN) Allergy Mild LIGHTHEADED Verified 09/03/25 10:23 latex (LATEX) Allergy Mild Verified 09/03/25 10:23 silver Allergy Mild BLISTERS Verified 09/03/25 10:23 (FROM TEGADERM MESH) sulfamethoxazole (From Allergy Mild Rash Verified 09/03/25 10:23 Bactrim) trimethoprim (From Bactrim) Allergy Mild Rash Verified 09/03/25 10:23 cephalexin AdvReac Nausea Verified 09/03/25 10:23 fluconazole AdvReac Nausea Verified 09/03/25 10:23 Review of Systems Review of Systems Narrative: GENERAL: Negative chills, fatigue, malaise, fever, sweats. HEENT: Negative sinus pain, ear pain, sore throat RESPIRATORY: Positive dyspnea, cough CARDIOVASCULAR: Negative chest pain, palpitations GASTROINTESTINAL: Negative vomiting, nausea, abdominal pain : Negative dysuria, frequency, hematuria MUSCULOSKELETAL: Negative muscle or bony pain SKIN: Negative rash, skin lesions NEUROLOGIC: Negative weakness, numbness ROS Unobtainable: All systems reviewed & are unremarkable except as noted in HPI and below Patient History Medical History Pneumonia involving right lung (~07/2025) Asthma Acute exacerbation of chronic obstructive pulmonary disease (~07/2024) Fall Chronic prescription benzodiazepine use Pulmonary nodule less than 6 mm in diameter with low risk for malignant neoplasm (~07/2020) Peripheral neuropathy Bronchitis Abnormal LFTs Restrictive lung disease Dysphagia, pharyngeal phase Obesity (BMI 30-39.9) Urinary incontinence (2004) Foot pain, left (2009) Ankle pain, left (2009) Lumbar spinal stenosis Cataract (03/2014) Hyperlipidemia Hypothyroidism 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) Essential tremor (05/19/15) Urge incontinence of urine (05/14/15) Chronic lumbar radiculopathy (08/26/14) Chronic left shoulder pain (12/25/17) Relationship problem with family member Internal hemorrhoids (~08/2020) Feared complaint without diagnosis Allergy to sulfa drugs Tinnitus (~2014) Chicken pox Mumps (1966) Surgical History History of esophagogastroduodenoscopy (EGD) (~03/2016) Anesthesia H/O abdominal surgery (03/2007) History of vaginal surgery (~2008) History of partial knee replacement (2007) History of partial knee replacement (2003) History of hip replacement (2001) History of hip replacement (1996) Status post hysterectomy with oophorectomy (1969) Family History Father Heart disease Pulmonary embolism Grandmother Heart disease Heart attack Sister Cancer Melanoma Grandmother No problems noted. Mother Dementia Grandfather Pneumonia Grandfather Dementia Daughter Depression Social History marital status: details: 07/22/2007 number of children: 1 household members: caregiver and none lives independently: Yes housing: [facility] pets and animals: No occupational status: previously employed alcohol intake: current substance use type: does not use alcohol intake frequency: holidays/special occasions only Exam Narrative Exam Narrative: GENERAL: in no distress, not toxic not dyspneic HEAD: Normocephalic. EYES: Pupils equal round ENT: Mucous membranes moist. NECK: Trachea midline. CARDIOVASCULAR: Regular rate and rhythm RESPIRATORY: Patient is mildly short of breath when talking. Equal lung sounds but diminished with rhonchi and wheezing. Patient in no distress. GASTROINTESTINAL: Abdomen soft, non-tender EXTREMITIES: No gross deformities. 2+ bilateral ankle edema BACK: No flank tenderness. NEURO: AOx4. Clear speech SKIN: Warm and dry PSYCH: Not anxious, is cooperative Initial Vital Signs Initial Vital Signs: Vital Signs Temperature 98.5 F 09/03/25 09:50 Pulse Rate 82 09/03/25 09:50 Respiratory Rate 25 H 09/03/25 09:50 Blood Pressure 155/82 H 09/03/25 09:50 Pulse Oximetry 93 09/03/25 09:50 Oxygen Delivery Method Room Air 09/03/25 09:50 Course Orders Ordered: ED Orders 09/03/25 10:06 Complete Blood Count AUTO DIFF Stat Comprehensive Metabolic Panel Stat NT-proBNP (BNP-Adult 18+) Stat PTT Partial Thromboplastin Filippo Stat Prothrombin Time INR Stat 09/03/25 10:12 Venous Blood Gas Routine Acetaminophen (Acetaminophen 325 Mg Tablet) 650 mg PO Q6H PRN PRN Reason: Fever/Mild Pain (1-3) Hydrocodone Bitart/Acetaminophen (Hydrocodone/Acet 5/325 Tablet) 2 tab PO Q4H PRN PRN Reason: Pain, Severe (7-10) Albuterol (Albuterol 2.5 Mg/3 Ml Neb (Adult)) 2.5 mg INH Q4H PRN PRN Reason: Shortness Of Breath Or Wheezing Albuterol/Ipratropium (Albuterol/Ipratropium 3 Ml Ampul) 3 ml INH QID [facility] Last Admin: 09/03/25 16:32 Dose: 3 ml Documented By: YAMILETH Atorvastatin Calcium (Atorvastatin 20 Mg Tablet) 20 mg PO BEDTIME [place] Furosemide (Furosemide 20 Mg Tablet) 20 mg PO DAILY [facility] Heparin Sodium (Porcine) (Heparin 5,000 Unit/Ml Vial) 5,000 unit SUBCUT BID [facility] Ceftriaxone Sodium 2,000 mg/ (Sodium Chloride) 100 mls @ 200 mls/hr IV Q24H [facility] Last Infusion: 09/03/25 15:55 Dose: Infused Documented By: Admin: 09/03/25 15:02 Dose: 200 mls/hr Documented By: SUBHA Doxycycline Hyclate 100 mg/ (Sodium Chloride) 100 mls @ 100 mls/hr IV Q12H [facility] Last Infusion: 09/03/25 18:42 Dose: Infused Documented By: Admin: 09/03/25 17:28 Dose: 100 mls/hr Documented By: SUBHA Lorazepam (Lorazepam 0.5 Mg Tablet) 0.5 mg PO Q12H [facility] Last Admin: 09/03/25 15:02 Dose: 0.5 mg Documented By: SUBHA Lutein (Vit C/E/Zn/Coppr/Lutein/Zeaxan Capsule) 1 cap PO DAILY [facility] Meloxicam (Meloxicam 7.5 Mg Tablet) 15 mg PO DAILY [facility] Methylprednisolone (Methylprednisolone Succ 125 Mg/2 Ml Vial) 60 mg IV Q12H [facility] Naloxone HCl (Naloxone 0.4 Mg/Ml Vial) 0.2 mg IV Q2MIN PRN PRN Reason: Opiate Reversal Nf - Estradiol 0.01 % (0.1 Mg/Gram) Cream 0.5 gram VAG MoTh@0900 PRN PRN Reason: UTI prevention Nystatin (Nystatin Powder 15gm) 1 applic TOP TID PRN PRN Reason: Rash Olanzapine (Olanzapine 2.5 Mg Tablet) 2.5 mg PO DAILY [facility] Ondansetron HCl (Ondansetron 4 Mg/2 Ml Inj) 4 mg IV Q8HR PRN PRN Reason: Nausea And Vomiting Oxybutynin Chloride (Oxybutynin Er 5 Mg Tablet) 10 mg PO DAILY [facility] Pantoprazole Sodium (Pantoprazole Dr 20 Mg Tablet) 20 mg PO 0600 [facility] Quetiapine Fumarate (Quetiapine 25 Mg Tablet) 50 mg PO .COMPLEX [facility] Sertraline HCl (Sertraline 50 Mg Tablet) 150 mg PO DAILY [facility] Trazodone HCl (Trazodone 50 Mg Tablet) 25 mg PO BEDTIME PRN PRN Reason: Insomnia Vitamin D (Cholecalciferol (Vitamin D3) 1,000 Unit Tablet) 2,000 unit PO BID [facility] Discontinued Medications Albuterol/Ipratropium (Albuterol/Ipratropium 3 Ml Ampul) 3 ml INH NOW ONE Stop: 09/03/25 09:57 Last Admin: 09/03/25 10:14 Dose: 3 ml Documented By: YAMILETH Albuterol/Ipratropium (Albuterol/Ipratropium 3 Ml Ampul) 3 ml INH [id number] [facility] Methylprednisolone (Methylprednisolone Succ 125 Mg/2 Ml Vial) 125 mg IV NOW ONE Stop: 09/03/25 09:57 Last Admin: 09/03/25 10:19 Dose: 125 mg Documented By: SGF Methylprednisolone (Methylprednisolone Succ 125 Mg/2 Ml Vial) 60 mg IV Q12H [facility] Last Admin: 09/03/25 15:21 Dose: Not Given Documented By: CM Vital Signs Vital signs: Vital Signs - 8 hr 09/03/25 11:30 09/03/25 11:30 09/03/25 11:52 Pulse Rate 80 99 H Respiratory Rate 33 H 20 Blood Pressure 130/73 Pulse Oximetry 92 93 09/03/25 12:00 09/03/25 12:00 Pulse Rate 82 Respiratory Rate 15 Blood Pressure 129/65 Pulse Oximetry 94 MDM - SOB/Dyspnea Lab Data 09/03/25 10:06 09/03/25 10:06 Labs: Lab Results 09/03/25 09/03/25 09/03/25 Range/Units 09:53 10:06 10:12 WBC 5.9 (4.5-11.0) X10^3/uL RBC 4.23 (4.0-5.2) X10^6/uL Hgb 12.7 (12.0-16.0) g/dL Hct 37.3 (36-46) % MCV 88.2 (80-100) fL MCH 30.1 (26-34) PG MCHC 34.1 (30-36) % RDW 14.8 (11.6-14.8) % Plt Count 267 (150-400) X10^3/uL Neut % (Auto) 64.7 (50-75) % Lymph % (Auto) 18.7 L (25-40) % [place] % (Auto) 11.6 (3-14) % Eos % (Auto) 4.5 H (2-4) % Baso % (Auto) 0.5 (0-2) % Neut # (Auto) 3800 (3040-3600) /uL Lymph # (Auto) 1100 (1620-3350) /uL [place] # (Auto) 700 (0-900) /uL Eos # (Auto) 300 (0-450) /uL Baso # (Auto) 0 (0-100) /uL PT 11.4 (9.4-12.5) SECONDS INR 1.0 (0.9-1.3) APTT 29 (25.1-36.5) SECONDS VBG pH 7.41 (7.33-7.43) VBG pCO2 46.6 (45-50) mmHg VBG pO2 44 (35-45) mmHg VBG HCO3 30 H (24-28) mmol/L VBG Total CO2 28 (24-29) mmol/L VBG O2 Saturation 80 H (70-75) % VBG Base Excess 4.3 H (0-4) mmol/L Sodium 139 (137-145) mmol/L Potassium 3.8 (3.4-5.1) mmol/L Chloride 104 (98-107) mmol/L Carbon Dioxide 28 (22-32) mmol/L BUN 11 (7-17) mg/dL Creatinine 0.71 (0.52-1.04) mg/dL Estimated GFR > 60 (>60) mL/min BUN/Creatinine Ratio 15.5 (6-22) Glucose 104 H (70-99) mg/dL Calcium 9.6 (8.4-10.2) mg/dL Total Bilirubin 0.3 (0.2-1.3) mg/dL AST 31 (14-36) IU/L ALT 28 (<35) IU/L Alkaline Phosphatase 62 (38-126) U/L NT-Pro-B Natriuret Pep 108 (<450) pg/mL Total Protein 7.1 (6.3-8.2) g/dL Albumin 4.5 (3.5-5.0) g/dL Globulin 2.6 (1.7-4.1) g/dL Albumin/Globulin Ratio 1.7 (1.0-2.8) SARS-CoV-2 (PCR) Negative (Negative) Influenza A (RT-PCR) Flu a negative (NEGATIVE) Influenza B (RT-PCR) Flu b negative (NEGATIVE) RSV (PCR) Negative (Negative) Urine Dip Bedside Urine Glucose Negative Bedside Urine Bilirubin - Negative Bedside Urine Ketone - Negative Urine Specific [place] 1.010 Bedside Urine Occult Blood - Negative Bedside Urine pH 6.0 Bedside Urine Protein - Negative Bedside Urine Urobilinogen - Negative Bedside Urine Nitrite - Negative Bedside Urine Leukocytes - Negative Esterase Imaging Data Chest x-ray: Radiologist's Impression: [address] [address] XRay Report Signed Patient: Petty Christy MR#: [id number] : 1935 Acct:[id number] Age/Sex: 89 / F Date of Service: 09/03/25 Loc: ED Accession Number: [id number] Procedure: XR chest 1V Ordering Provider: Tal Larios MD PROCEDURE: XR CHEST 1V INDICATIONS: shortness of breath, dyspnea TECHNIQUE: One view of the chest was acquired. COMPARISON: [facility], CR, XR CHEST 1V, 08/10/2025, 14:51. [facility], CR, XR CHEST 1V, 07/23/2025, 8:18. FINDINGS: Surgical changes and devices: None. Lungs and pleura: No pleural effusions or pneumothorax. Mild interstitial prominence. Mediastinum: Mediastinal contours appear normal. Heart size is normal. Atheromatous plaques are noted thoracic aorta. Bones and chest wall: No suspicious bony abnormalities. Soft tissues appear unremarkable. Multilevel degenerative disc disease noted. Advanced bilateral glenohumeral joint arthritis. Suboptimal apical lordotic projection. IMPRESSION: No consolidation, effusion or pneumothorax. Mild interstitial prominence could represent mild edema or chronic lung changes. Correlate with symptoms and presentation. He Dictated by: Shanti Vargas M.D. on 09/03/2025 at 10:20 Approved by: Shanti Vargas M.D. on 09/03/2025 at 10:23 MDM Narrative Medical decision making narrative: Patient brought here from home by home health care provider for shortness of breath and wheezing. Ongoing for the past couple of days. Patient's POLST form on file states DNR with comfort measures only but she states it is not comfort measures it is selective treatments. She will make changes to her document. Patient has history of CHF COPD. Patient admitted 1 month ago for COPD exacerbation and then she came back and was admitted for UTI. She was discharged to [facility] and was discharged home August 28, 2025. Has been doing well until a couple days ago she feels her COPD has flared up again. No known sick contacts. She has been doing her breathing treatments at home. She is not on home oxygen. Patient denies any chest pain. Regarding her CHF, she does not feel like she has been retaining fluid more than usual. She has audible wheezing. No urinary complaints. MDM After history and exam, DuoNeb Solu-Medrol VBG chest x-ray EKG CBC CMP BNP Differential considered: Includes but not limited to pneumonia bronchitis COVID influenza RSV rhino virus Medical records reviewed: Discharge summary from this hospital August 15, 2025 Lab Test results independently reviewed as above. Pertinent findings: WBC 5.9 hemoglobin 12.7 INR 1.0 VBG 7.41, 46, 44, sodium 139 potassium 3.8 BNP 108 Independently reviewed EKG normal sinus rhythm rate 73 right bundle branch block Imaging studies independently reviewed: Chest x-ray no acute finding Consultations: 12:00 p.m. spoke with hospitalist, dr melo, who will admit patient Re-evaluations: 11:45 a.m.. Patient short of breath when walking in hallway after treatments. Agrees and desires admission for COPD exacerbation. Discussion: Appropriate for admission. Patient dyspneic on hallway ambulation work of breathing significant, 90% room air but tachypneic. Patient will admission for COPD exacerbation despite treatments in the ER Diagnosis: COPD exacerbation Discharge Plan Departure Patient Disposition: Admitted as Observation Clinical Impression: Acute exacerbation of chronic obstructive pulmonary disease Admit Date/Time: 09/03/25 12:06 Admit Provider: Gualberto Melo
[2025-09-03 10:12] LABS: Add Manual Diff / Slide Review NO; Hematocrit 37.3 % (36-46); Hemoglobin 12.7 g/dL (12.0-16.0); Lymphocytes Absolute Auto 1100 /uL (1100-4500); Mean Corpuscular HGB Conc 34.1 % (30-36); Mean Corpuscular Hemoglobin 30.1 PG (26-34); Mean Corpuscular Volume 88.2 fL (80-100); Platelet Count 267 X10^3/uL (150-400)
[2025-09-03] MEDS: ALBUTEROL/IPRATROPIUM 3 ML AMPUL INH ×3 (10:14→21:24)
[2025-09-03 10:19] LABS: INR 1.0 (0.9-1.3); Prothrombin Time 11.4 SECONDS (9.4-12.5)
[2025-09-03] MEDS: methylPREDNISolone succ 125 MG/2 ML VIAL IV (10:19)
[2025-09-03 10:22] LABS: PTT Partial Thromboplastin Tim 29 SECONDS (25.1-36.5)
[2025-09-03 10:23] LABS: Alanine Aminotransferase 28 IU/L (<35); Albumin 4.5 g/dL (3.5-5.0); Albumin Globulin Ratio 1.7 (1.0-2.8); Alkaline Phosphatase 62 U/L (38-126); Blood Urea Nitrogen 11 mg/dL (7-17); Calcium 9.6 mg/dL (8.4-10.2); Carbon Dioxide 28 mmol/L (22-32); Chloride 104 mmol/L (98-107); Estimated Glomerular Filt Rate > 60 mL/min (>60); Globulin 2.6 g/dL (1.7-4.1); Glucose 104 mg/dL (70-99); HEMOLYSIS < 15 (0-50); Potassium 3.8 mmol/L (3.4-5.1); Sodium 139 mmol/L (137-145); Total Protein 7.1 g/dL (6.3-8.2)
[2025-09-03 10:26] LABS: Base Excess VBG 4.3 mmol/L (0-4); HCO3 VBG 30 mmol/L (24-28); Oxygen Saturation VBG 80 % (70-75); PCO2 VBG 46.6 mmHg (45-50); PO2 VBG 44 mmHg (35-45); Total CO2 VBG 28 mmol/L (24-29); pH VBG 7.41 (7.33-7.43)
[2025-09-03 10:32] LABS: NT-proBNP (BNP-Adult 18+) 108 pg/mL (<450)
[2025-09-03 10:58] LABS: COVID-19 CEPHEID 4-PLEX PCR Negative (Negative); Influenza A - CEPHEID Flu A NEGATIVE (NEGATIVE); Influenza B - CEPHEID Flu B NEGATIVE (NEGATIVE)
--- NOTE | 2025-09-03 11:54 | PC.NURSE ---
FISH EGG PACKER Note: PT ambulating in hallway with walker, O2 between 90 - 93% Hr 99, Dr. Larios
[2025-09-03] MEDS: cefTRIAXone 2,000 MG in SODIUM CHLORIDE 0.9% 100 ML 200 MG IV (15:02)
--- NOTE | 2025-09-03 15:38 | PM.HP.1 ---
History of Present Illness History of Present Illness Date Patient Seen: 09/03/25 Chief complaint: copd, wheezing, cough productive yellow sputum Narrative: Chief complaint: Productive cough yellow sputum increasing shortness for breath malaise and fatigue with exacerbation COPD History of present illness: 89-year-old female discharged 5 days ago from senior living facility after a prolonged hospitalization and recurrent hospitalizations for exacerbations of diastolic congestive heart failure and COPD exacerbations on 08/30 be in had a scratchy throat with worsening cough increasing dyspnea with activity in the beginning of productive cough with yellow phlegm came to the emergency room for evaluation Findings in the emergency department significant for: Chest x-ray subtle interstitial parenchymal changes diffusely White count was 5.9 with normal differential VB.41/46.6/44 Basic metabolic unremarkable For past medical surgical social and family history please see the bottom of the chart: Review of systems: No chest pain palpitations No nausea vomiting diarrhea No urinary symptom No paresthesia or paresis Headache diplopia No loss of consciousness Physical exam: Elderly female in no acute distress no labored respirations on room air HEENT unremarkable Lungs sounds distant Heart sounds distant no murmurs appreciated Abdomen nontender 2+ edema of lower extremities with the appear chronic Neuro nonfocal For objective laboratory and imaging please see the bottom of the note Assessment and plan: Acute upper respiratory infection with acute exacerbation of COPD requiring hospitalization Productive of yellow sputum sent for Gram stain and culture Empiric ceftriaxone doxycycline Low-dose steroids Bronchodilators Ambulate patient and keep patient out of bed most of the time while awake Chronic medical problems: Chronic diastolic congestive heart failure Morbid obesity COPD Restrictive lung disease DVT prophylaxis: Subcutaneous heparin Code status: Do not resuscitate Disposition: A patient treatment anticipate 48-72 hours of treatment Try keep the patient in her chair and ambulating so that she does not weekend and require placement and rehab again Time based billin minutes were involved in the evaluation of this patient including [id number] evaluation of the patient physical examination review of objective laboratory and imaging including direct visualization of images discussion with emergency provider and nursing treatment team [facility] Medical History Pneumonia involving right lung (~07/2025) Asthma Acute exacerbation of chronic obstructive pulmonary disease (~07/2024) Fall Chronic prescription benzodiazepine use Pulmonary nodule less than 6 mm in diameter with low risk for malignant neoplasm (~07/2020) Peripheral neuropathy Bronchitis Abnormal LFTs Restrictive lung disease Dysphagia, pharyngeal phase Obesity (BMI 30-39.9) Urinary incontinence (2004) Foot pain, left (2009) Ankle pain, left (2009) Lumbar spinal stenosis Cataract (03/2014) Hyperlipidemia Hypothyroidism 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) Essential tremor (05/19/15) Urge incontinence of urine (05/14/15) Chronic lumbar radiculopathy (08/26/14) Chronic left shoulder pain (12/25/17) Relationship problem with family member Internal hemorrhoids (~08/2020) Feared complaint without diagnosis Allergy to sulfa drugs Tinnitus (~2014) Chicken pox Mumps (1966) Surgical History History of esophagogastroduodenoscopy (EGD) (~03/2016) Anesthesia H/O abdominal surgery (03/2007) History of vaginal surgery (~2008) History of partial knee replacement (2007) History of partial knee replacement (2003) History of hip replacement (2001) History of hip replacement (1996) Status post hysterectomy with oophorectomy (1969) Family History Father Heart disease Pulmonary embolism Grandmother Heart disease Heart attack Sister Cancer Melanoma Grandmother No problems noted. Mother Dementia Grandfather Pneumonia Grandfather Dementia Daughter Depression Social History marital status: details: 07/22/2007 number of children: 1 household members: caregiver and none lives independently: [facility] pets and animals: No occupational status: previously employed alcohol intake: current substance use type: does not use Meds Home Medications and Allergies Home Medications ?Medication ?Instructions ?Recorded ?Confirmed ?Type vitamins A,C,I-xoow-swcijs 2,148 2 tab PO DAILY 08/26/20 09/03/25 History mcg-113 mg-45 mg-17.4 mg tablet (PreserVision AREDS) Disabled Parking Permit #1 ea 02/21/22 09/03/25 Rx cholecalciferol (vitamin D3) 50 150 mcg PO BID 08/07/24 09/03/25 History mcg (2,000 unit) capsule (Vitamin D3) meloxicam 15 mg tablet 15 mg PO DAILY #90 tabs 01/09/25 09/03/25 Rx olanzapine 2.5 mg tablet 2.5 mg PO DAILY #90 tabs 01/09/25 09/03/25 Rx omeprazole 20 mg capsule,delayed 20 mg PO DAILY #90 caps 01/09/25 09/03/25 Rx release simvastatin 40 mg tablet 40 mg PO BEDTIME #90 tabs 01/09/25 09/03/25 Rx tolterodine 4 mg capsule,extended 4 mg PO DAILY #90 caps 01/09/25 09/03/25 Rx release 24 hr trazodone 50 mg tablet 25 mg (1/2 x 50 mg) PO BEDTIME PRN 01/09/25 09/03/25 Rx insomnia #45 tabs albuterol sulfate 90 mcg/actuation 2 puff inhalation Q4-6H PRN 04/08/25 09/03/25 Rx aerosol inhaler shortness of breath or wheezing #18 grams ipratropium 0.5 mg-albuterol 3 mg 3 ml inhalation QID #180 mL 04/08/25 09/03/25 Rx (2.5 mg base)/3 mL nebulization soln sertraline 100 mg tablet See Rx Instructions .Route 04/10/25 09/03/25 Rx .COMPLEX #135 tabs estradiol 0.01% (0.1 mg/gram) 0.5 g vaginal 2XW PRN UTI 04/18/25 09/03/25 Rx vaginal cream prevention #42.5 grams furosemide 20 mg tablet (Lasix) 20 mg PO QAM #90 tabs 06/11/25 09/03/25 Rx quetiapine 50 mg tablet 50 mg PO .COMPLEX #120 tabs 06/11/25 09/03/25 Rx lorazepam 0.5 mg tablet 0.5 mg PO Q12H #14 tabs 08/15/25 09/03/25 Rx Allergies Allergy/AdvReac Type Severity Reaction Status Date / Time digoxin (DIGOXIN) Allergy Mild LIGHTHEADED Verified 09/03/25 10:23 latex (LATEX) Allergy Mild Verified 09/03/25 10:23 silver Allergy Mild BLISTERS Verified 09/03/25 10:23 (FROM TEGADERM MESH) sulfamethoxazole (From Allergy Mild Rash Verified 09/03/25 10:23 Bactrim) trimethoprim (From Bactrim) Allergy Mild Rash Verified 09/03/25 10:23 cephalexin AdvReac Nausea Verified 09/03/25 10:23 fluconazole AdvReac Nausea Verified 09/03/25 10:23 Exam Vital Signs (past 8 hours): - 09/03/25 09:50 09/03/25 09:54 09/03/25 09:55 Temperature 98.5 F Pulse Rate 82 82 Respiratory Rate 25 H Blood Pressure 155/82 H 158/82 H Pulse Oximetry 93 93 Oxygen Delivery Method Room Air Oxygen Flow Rate 09/03/25 10:00 09/03/25 10:22 09/03/25 10:22 Temperature Pulse Rate 80 82 Respiratory Rate Blood Pressure 173/118 H Pulse Oximetry 93 92 Oxygen Delivery Method Oxygen Flow Rate 09/03/25 10:30 09/03/25 10:34 09/03/25 10:34 Temperature Pulse Rate 83 79 Respiratory Rate 26 H Blood Pressure 148/67 H Pulse Oximetry 91 93 Oxygen Delivery Method Oxygen Flow Rate 09/03/25 11:00 09/03/25 11:01 09/03/25 11:01 Temperature Pulse Rate 77 77 Respiratory Rate 30 H 32 H Blood Pressure 131/68 Pulse Oximetry 92 91 Oxygen Delivery Method Oxygen Flow Rate 09/03/25 11:30 09/03/25 11:30 09/03/25 11:52 Temperature Pulse Rate 80 99 H Respiratory Rate 33 H 20 Blood Pressure 130/73 Pulse Oximetry 92 93 Oxygen Delivery Method Oxygen Flow Rate 09/03/25 12:00 09/03/25 12:00 09/03/25 12:30 Temperature Pulse Rate 82 Respiratory Rate 15 Blood Pressure 129/65 141/67 H Pulse Oximetry 94 Oxygen Delivery Method Oxygen Flow Rate 09/03/25 12:30 09/03/25 13:23 09/03/25 14:12 Temperature 97.5 F L 97.5 F L Pulse Rate 83 85 87 Respiratory Rate 29 H 20 20 Blood Pressure 141/79 H 141/79 H Pulse Oximetry 92 92 92 Oxygen Delivery Method Oxygen Flow Rate 0 Oxygen Delivery Method Room Air Oxygen Flow Rate 0 Objective Labs 09/03/25 10:06 09/03/25 10:06 Labs: Laboratory Results - last 24 hr 09/03/25 09/03/25 09/03/25 09:53 10:06 10:12 WBC 5.9 RBC 4.23 Hgb 12.7 Hct 37.3 MCV 88.2 MCH 30.1 MCHC 34.1 RDW 14.8 Plt Count 267 Neut % (Auto) 64.7 Lymph % (Auto) 18.7 L [place] % (Auto) 11.6 Eos % (Auto) 4.5 H Baso % (Auto) 0.5 Neut # (Auto) 3800 Lymph # (Auto) 1100 [place] # (Auto) 700 Eos # (Auto) 300 Baso # (Auto) 0 PT 11.4 INR 1.0 APTT 29 VBG pH 7.41 VBG pCO2 46.6 VBG pO2 44 VBG HCO3 30 H VBG Total CO2 28 VBG O2 Saturation 80 H VBG Base Excess 4.3 H Sodium 139 Potassium 3.8 Chloride 104 Carbon Dioxide 28 BUN 11 Creatinine 0.71 Estimated GFR > 60 BUN/Creatinine Ratio 15.5 Glucose 104 H Calcium 9.6 Total Bilirubin 0.3 AST 31 ALT 28 Alkaline Phosphatase 62 NT-Pro-B Natriuret Pep 108 Total Protein 7.1 Albumin 4.5 Globulin 2.6 Albumin/Globulin Ratio 1.7 SARS-CoV-2 (PCR) Negative Influenza A (RT-PCR) Flu a negative Influenza B (RT-PCR) Flu b negative RSV (PCR) Negative Assessment & Plan Time-Based Coding :: [TOTAL MINUTES] spent with patient and on the chart (including review of chart, obtaining history, exam, reviewing outside data, placing orders, documenting exam and treatment plan, and counseling patient) on [DATE].
[2025-09-03] MEDS: DOXYCYCLINE 100 MG in SODIUM CHLORIDE 0.9% 100 ML IV (17:28)
[2025-09-03] MEDS: CHOLECALCIFEROL (VITAMIN D3) 1,000 UNIT TABLET 2000 UNIT PO (22:24)
[2025-09-03] MEDS: HEPARIN 5,000 UNIT/ML VIAL 5000 UNIT SUBCUT (22:24)
[2025-09-03] MEDS: ATORVASTATIN 20 MG TABLET PO (22:24)
[2025-09-03] MEDS: methylPREDNISolone succ 125 MG/2 ML VIAL 60 MG IV (22:26)
[2025-09-04] MEDS: DOXYCYCLINE 100 MG in SODIUM CHLORIDE 0.9% 100 ML IV ×2 (05:28→17:29)
[2025-09-04] MEDS: PANTOPRAZOLE DR 20 MG TABLET PO (05:28)
--- NOTE | 2025-09-04 07:20 | P.PN_ITS ---
Subjective Subjective Interval history: S: [facility] developed URI symptoms Monday and acute dyspnea. A little bit better today, but still quite wheezy. Chest x-ray subtle interstitial parenchymal changes diffusely White count was 5.9 with normal differential VB.41/46.6/44 Basic metabolic unremarkable O: NAD, alert and oriented. Fluent speech. Lungs are clear, normal rate and effort. Heart is regular, no murmur gallop or rub. Abdomen is soft, non distended. Extremities are with 2+ edema. A/P: Acute upper respiratory infection with acute exacerbation of COPD requiring hospitalization, active. * Productive of yellow sputum sent for Gram stain and culture * Empiric ceftriaxone doxycycline * Low-dose steroids * Bronchodilators * Ambulate patient and keep patient out of bed most of the time while awake Chronic medical problems: Chronic diastolic congestive heart failure Morbid obesity COPD Restrictive lung disease PLAN: -continue current treatment of COPD for another midnight. DVT prophylaxis: * Subcutaneous heparin DNR Exam Vital Signs (past 8 hours): Oxygen Delivery Method Room Air Oxygen Flow Rate 0 Objective Labs 09/03/25 10:06 09/03/25 10:06 Labs: Laboratory Results - last 24 hr 09/03/25 09/03/25 09/03/25 09:53 10:06 10:12 WBC 5.9 RBC 4.23 Hgb 12.7 Hct 37.3 MCV 88.2 MCH 30.1 MCHC 34.1 RDW 14.8 Plt Count 267 Neut % (Auto) 64.7 Lymph % (Auto) 18.7 L [place] % (Auto) 11.6 Eos % (Auto) 4.5 H Baso % (Auto) 0.5 Neut # (Auto) 3800 Lymph # (Auto) 1100 [place] # (Auto) 700 Eos # (Auto) 300 Baso # (Auto) 0 PT 11.4 INR 1.0 APTT 29 VBG pH 7.41 VBG pCO2 46.6 VBG pO2 44 VBG HCO3 30 H VBG Total CO2 28 VBG O2 Saturation 80 H VBG Base Excess 4.3 H Sodium 139 Potassium 3.8 Chloride 104 Carbon Dioxide 28 BUN 11 Creatinine 0.71 Estimated GFR > 60 BUN/Creatinine Ratio 15.5 Glucose 104 H POC Whole Bld Glucose Calcium 9.6 Total Bilirubin 0.3 AST 31 ALT 28 Alkaline Phosphatase 62 NT-Pro-B Natriuret Pep 108 Total Protein 7.1 Albumin 4.5 Globulin 2.6 Albumin/Globulin Ratio 1.7 SARS-CoV-2 (PCR) Negative Influenza A (RT-PCR) Flu a negative Influenza B (RT-PCR) Flu b negative RSV (PCR) Negative 09/03/25 20:38 WBC RBC Hgb Hct MCV MCH MCHC RDW Plt Count Neut % (Auto) Lymph % (Auto) [place] % (Auto) Eos % (Auto) Baso % (Auto) Neut # (Auto) Lymph # (Auto) [place] # (Auto) Eos # (Auto) Baso # (Auto) PT INR APTT VBG pH VBG pCO2 VBG pO2 VBG HCO3 VBG Total CO2 VBG O2 Saturation VBG Base Excess Sodium Potassium Chloride Carbon Dioxide BUN Creatinine Estimated GFR BUN/Creatinine Ratio Glucose POC Whole Bld Glucose 164 H Calcium Total Bilirubin AST ALT Alkaline Phosphatase NT-Pro-B Natriuret Pep Total Protein Albumin Globulin Albumin/Globulin Ratio SARS-CoV-2 (PCR) Influenza A (RT-PCR) Influenza B (RT-PCR) RSV (PCR) [facility] Medical History Pneumonia involving right lung (~07/2025) Asthma Acute exacerbation of chronic obstructive pulmonary disease (~07/2024) Fall Chronic prescription benzodiazepine use Pulmonary nodule less than 6 mm in diameter with low risk for malignant neoplasm (~07/2020) Peripheral neuropathy Bronchitis Abnormal LFTs Restrictive lung disease Dysphagia, pharyngeal phase Obesity (BMI 30-39.9) Urinary incontinence (2004) Foot pain, left (2009) Ankle pain, left (2009) Lumbar spinal stenosis Cataract (03/2014) Hyperlipidemia Hypothyroidism 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) Essential tremor (05/19/15) Urge incontinence of urine (05/14/15) Chronic lumbar radiculopathy (08/26/14) Chronic left shoulder pain (12/25/17) Relationship problem with family member Internal hemorrhoids (~08/2020) Feared complaint without diagnosis Allergy to sulfa drugs Tinnitus (~2014) Chicken pox Mumps (1966) Surgical History History of esophagogastroduodenoscopy (EGD) (~03/2016) Anesthesia H/O abdominal surgery (03/2007) History of vaginal surgery (~2008) History of partial knee replacement (2007) History of partial knee replacement (2003) History of hip replacement (2001) History of hip replacement (1996) Status post hysterectomy with oophorectomy (1969) Family History Father Heart disease Pulmonary embolism Grandmother Heart disease Heart attack Sister Cancer Melanoma Grandmother No problems noted. Mother Dementia Grandfather Pneumonia Grandfather Dementia Daughter Depression Social History marital status: details: 07/22/2007 number of children: 1 household members: caregiver and none lives independently: Yes housing: condominium pets and animals: No occupational status: previously employed alcohol intake: current substance use type: does not use Assessment & Plan Time-Based Coding :: [TOTAL MINUTES] spent with patient and on the chart (including review of chart, obtaining history, exam, reviewing outside data, placing orders, documenting exam and treatment plan, and counseling patient) on [DATE].
[2025-09-04 07:53] VITALS: PULSE 77; RESP 22; O2SAT 95
[2025-09-04 08:30] VITALS: BP 107/64; PULSE 75; RESP 18; TEMP 36.2; O2SAT 93
[2025-09-04] MEDS: ALBUTEROL/IPRATROPIUM 3 ML AMPUL INH ×4 (09:43→19:44)
[2025-09-04] MEDS: CHOLECALCIFEROL (VITAMIN D3) 1,000 UNIT TABLET 2000 UNIT PO ×2 (10:04→19:59)
[2025-09-04] MEDS: FUROSEMIDE 20 MG TABLET PO (10:05)
[2025-09-04] MEDS: HEPARIN 5,000 UNIT/ML VIAL 5000 UNIT SUBCUT ×2 (10:05→19:59)
[2025-09-04] MEDS: MELOXICAM 7.5 MG TABLET 15 MG PO (10:06)
[2025-09-04] MEDS: oxyBUTYnin ER 5 MG TABLET 10 MG PO (10:06)
[2025-09-04] MEDS: SERTRALINE 50 MG TABLET 150 MG PO (10:06)
[2025-09-04] MEDS: VIT C/E/ZN/COPPR/LUTEIN/ZEAXAN CAPSULE 1 CAP PO (10:06)
[2025-09-04 11:08] VITALS: PULSE 79; RESP 20; O2SAT 94
--- NOTE | 2025-09-04 11:32 | CM.DANOTE ---
Patient is an 89yo female who is a Readmit on 09/03/25 for CHF/COPD exac. Per MD, pt recently admitted on 08/12-08/15/25 for UTI. Hx of CHF, COPD exacerbation. EMR was reviewed. Pt's Primary Care Provider is Dr. Ariella Boo and insurance is Medicare and [employer].. Reviewed chart and discussed with multidisciplinary team pt's medical status and initial discharge needs. Per provider, potential pt might be stable for d/c home tomorrow Fri pending progress. Per EMR, pt was admitted on 07/20-07/24 and discharged home with [facility]. Caregiver transported home. When pt most recently discharged on 08/15/25 she went to [facility] and has only been home about a week and was then admitted yesterday. DCP met w/patient at bedside; introduced self and role. Patient was found in bedside chair, alert and oriented, cooperative with assessment. Pt lives in a house alone, has a private caregiver who lives 10 mins away from her and good support in caregiver, Leatha (ph# [phone]) . Pt expressed preference in discharge home with [facility] when cleared. Pt agreeable to working with therapies and following their recommendations but may not need PT eval as pt has been SBA in [facility]WW in room. SW spoke to [facility] and confirmed they only need Resumption Orders at discharge as they just started pt on service on 08/31/25. Faxed H&P to review. Plan: SW to follow for plan of discharge home with [facility] and any further identified discharge planning needs. KATT Vann Discharge Planning/Care Management CM Discharge Assessment Start: 09/03/25 12:42 Freq: Status: Active Protocol: Document 09/04/25 11:29 BF (Rec: 09/04/25 11:32 BF [id number]) Discharge Planning Assessment Assigned Discharge KATT Ruth Handle Turner Provider Ariella Boo Insurance Medicare Advance Directives? Yes: Yes; POLST Advance Directives Yes on File History Provided By Patient,Medical Record Has Patient been Yes admitted in last 30 days? Comment Recently admitted 08/12-08/15/25 and discharged to [facility] Prior Living Apartment/Condo Arrangements Household Members caregiver,none Type of Relies on Others transporation used prior to admit Independent with ADL Yes: mostly 's Is patient alert and Yes oriented? Needs Assistance Meal Prep,Home Chores / Shopping With Caregiver for No Another Community Services Physical Therapy,Home Health Nurse used prior to admission: DME Already Rented / FWW / Walker Owned Patient/Family Home with Home Health Preference Comment Currently open with [facility], just need Resumption Orders Barriers to No Discharge Discharge Plan Home with Home Health Community Services Physical Therapy,Home Health Nurse Transportation Caregiver, Leatha Arrangement Referrals Initiated Home Health Additional Comment Just need Resumption Orders Medicare Choice List Yes Provided Medicare choice list patient reviewed on electronic tablet with Whiteboard Updated Yes in Patient Room with name and ext. # of Mix House Tender Review Status In Process Please Provide Date 09/04/25 Initial DC Assessment Was Performed Next Review Type Continued Stay Review
[2025-09-04] MEDS: methylPREDNISolone succ 125 MG/2 ML VIAL 60 MG IV ×2 (11:34→23:01)
[2025-09-04] MEDS: methylPREDNISolone succ 125 MG/2 ML VIAL IV (12:24)
[2025-09-04] MEDS: cefTRIAXone 2,000 MG in SODIUM CHLORIDE 0.9% 100 ML 200 MG IV (14:30)
[2025-09-04 15:38] VITALS: PULSE 84; RESP 18; O2SAT 92
[2025-09-04 19:00] VITALS: BP 90/52; PULSE 92; RESP 16; TEMP 36.6; O2SAT 94
[2025-09-04 19:47] VITALS: PULSE 90; RESP 18; O2SAT 93
[2025-09-04] MEDS: ATORVASTATIN 20 MG TABLET PO (19:59)
[2025-09-05] MEDS: PANTOPRAZOLE DR 20 MG TABLET PO (06:56)
[2025-09-05] MEDS: DOXYCYCLINE 100 MG in SODIUM CHLORIDE 0.9% 100 ML IV (07:00)
[2025-09-05 07:41] VITALS: PULSE 72; RESP 20; O2SAT 97
[2025-09-05] MEDS: ALBUTEROL/IPRATROPIUM 3 ML AMPUL INH (07:41)
[2025-09-05 08:33] VITALS: BP 125/66; PULSE 89; RESP 28; TEMP 36.7; O2SAT 92
[2025-09-05] MEDS: CHOLECALCIFEROL (VITAMIN D3) 1,000 UNIT TABLET 2000 UNIT PO (09:17)
[2025-09-05] MEDS: VIT C/E/ZN/COPPR/LUTEIN/ZEAXAN CAPSULE 1 CAP PO (09:17)
[2025-09-05] MEDS: SERTRALINE 50 MG TABLET 150 MG PO (09:17)
[2025-09-05] MEDS: MELOXICAM 7.5 MG TABLET 15 MG PO (09:17)
[2025-09-05] MEDS: FUROSEMIDE 20 MG TABLET PO (09:18)
[2025-09-05] MEDS: oxyBUTYnin ER 5 MG TABLET 10 MG PO (09:18)
[2025-09-05] MEDS: HEPARIN 5,000 UNIT/ML VIAL 5000 UNIT SUBCUT (09:19)
[2025-09-05] MEDS: methylPREDNISolone succ 125 MG/2 ML VIAL 60 MG IV (09:33)
--- NOTE | 2025-09-05 12:00 | P.DS_ITS ---
History of Present Illness History of Present Illness Chief complaint: copd, wheezing, cough productive yellow sputum Narrative: From H&P: Chief complaint: Productive cough yellow sputum increasing shortness for breath malaise and fatigue with exacerbation COPD History of present illness: 89-year-old female discharged 5 days ago from senior care facility after a prolonged hospitalization and recurrent hospitalizations for exacerbations of diastolic congestive heart failure and COPD exacerbations on 08/30 be in had a scratchy throat with worsening cough increasing dyspnea with activity in the beginning of productive cough with yellow phlegm came to the emergency room for evaluation Findings in the emergency department significant for: Chest x-ray subtle interstitial parenchymal changes diffusely White count was 5.9 with normal differential VB.41/46.6/44 Basic metabolic unremarkable Discharge Providers Provider Date of admission: 09/03/25 12:06 Discharge Date: 09/05/25 Primary care physician: Ariella Boo DO Consults: 09/04/25 10:28 Consult to Pharmacy Routine Comment: high fall risk 09/05/25 10:41 Consult to Pharmacy Routine Comment: high fall risk Discharge provider: Haile Vargas MD Summary Hospital Course Discharge Diagnosis: Acute upper respiratory infection with acute exacerbation of COPD requiring hospitalization, improved. * Empiric ceftriaxone doxycycline * Low-dose steroids * Bronchodilators Chronic medical problems: Chronic diastolic congestive heart failure Morbid obesity COPD Restrictive lung disease Hospital Course: She was admitted and treated for COPD with standard measures including steroids and antibiotics. She improved. Her symptoms were consistent with a URI. Respiratory studies were negative. She was improved and stable for discharge on room air on September 05. Resume [facility]. Status at Discharge Cognitive/behavioral status at discharge: oriented Functional status at discharge: independent ambulation Overall status at discharge: patient is progressing back to baseline Time Spent with Patient Time spent: Greater than 30 minutes Exam Vital Signs (past 8 hours): - 09/05/25 07:41 09/05/25 08:33 Temperature 98.0 F Pulse Rate 72 89 Respiratory Rate 20 28 H Blood Pressure 125/66 Pulse Oximetry 97 92 Oxygen Delivery Method Room Air Oxygen Flow Rate 0 Fraction of Inspired Oxygen 21 SaO2/FiO2 Ratio 438 Oxygen Delivery Method Room Air Oxygen Flow Rate 0 Narrative Exam Narrative: NAD, alert and oriented. Fluent speech. Lungs are clear, normal rate and effort. Heart is regular, no murmur gallop or rub. Abdomen is soft, non distended. Extremities are free of edema. Objective Imaging Chest x-ray: Radiologist's impression: No consolidation, effusion or pneumothorax. Mild interstitial prominence could represent mild edema or chronic lung changes. Correlate with symptoms and presentation. Labs 09/03/25 10:06 09/03/25 10:06 [facility] Medical History Pneumonia involving right lung (~07/2025) Asthma Acute exacerbation of chronic obstructive pulmonary disease (~07/2024) Fall Chronic prescription benzodiazepine use Pulmonary nodule less than 6 mm in diameter with low risk for malignant neoplasm (~07/2020) Peripheral neuropathy Bronchitis Abnormal LFTs Restrictive lung disease Dysphagia, pharyngeal phase Obesity (BMI 30-39.9) Urinary incontinence (2004) Foot pain, left (2009) Ankle pain, left (2009) Lumbar spinal stenosis Cataract (03/2014) Hyperlipidemia Hypothyroidism 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) Essential tremor (05/19/15) Urge incontinence of urine (05/14/15) Chronic lumbar radiculopathy (08/26/14) Chronic left shoulder pain (12/25/17) Relationship problem with family member Internal hemorrhoids (~08/2020) Feared complaint without diagnosis Allergy to sulfa drugs Tinnitus (~2014) Chicken pox Mumps (1966) Surgical History History of esophagogastroduodenoscopy (EGD) (~03/2016) Anesthesia H/O abdominal surgery (03/2007) History of vaginal surgery (~2008) History of partial knee replacement (2007) History of partial knee replacement (2003) History of hip replacement (2001) History of hip replacement (1996) Status post hysterectomy with oophorectomy (1969) Family History Father Heart disease Pulmonary embolism Grandmother Heart disease Heart attack Sister Cancer Melanoma Grandmother No problems noted. Mother Dementia Grandfather Pneumonia Grandfather Dementia Daughter Depression Social History marital status: details: 07/22/2007 number of children: 1 household members: caregiver and none lives independently: Yes housing: condominium pets and animals: No occupational status: previously employed alcohol intake: current substance use type: does not use Discharge Assessment & Plan Assessment and Plan Assessment: 1. COPD exacerbation, improved. Plan of Treatment: Discharge home, we will stop antibiotics and steroids at this point and simply resume her previous medications. We will resume home health as well. Discharge Plan Discharge Plan Patient Disposition: Home Provider Discharge Comment: Stable for discharge home. Discharge orders & Medications Prescriptions: Continued (DME) Disabled Parking Permit See Rx Instructions .ROUTE .MEDSUPPLY Qty: 1 0RF Rx Instructions: Valid for 5 years sertraline 100 mg tablet See Rx Instructions .ROUTE .COMPLEX Qty: 135 0RF Dose Instruction: TAKE 1& 1/2 TABLETS(150MG) BY MOUTH DAILY Rx Instructions: TAKE 1& 1/2 TABLETS(150MG) BY MOUTH DAILY meloxicam 15 mg tablet 15 mg PO DAILY Qty: 90 1RF omeprazole 20 mg capsule,delayed release(DR/EC) 20 mg PO DAILY Qty: 90 1RF olanzapine 2.5 mg tablet 2.5 mg PO DAILY Qty: 90 1RF simvastatin 40 mg tablet 40 mg PO BEDTIME Qty: 90 3RF tolterodine 4 mg capsule,extended release 24hr 4 mg PO DAILY Qty: 90 1RF trazodone 50 mg tablet 25 mg PO BEDTIME PRN (Reason: insomnia) Qty: 45 1RF estradiol 0.01 % (0.1 mg/gram) cream 0.5 g vaginal 2XW PRN (Reason: UTI prevention) Qty: 42.5 0RF Rx Instructions: Apply thin layer periurethra quetiapine 50 mg tablet 50 mg PO .COMPLEX MDD 100mg Qty: 120 3RF Rx Instructions: 50 mg orally every night; may take an extra dose as needed for difficulty sleeping; furosemide [Lasix] 20 mg tablet 20 mg PO QAM Qty: 90 3RF ipratropium-albuterol 0.5 mg-3 mg(2.5 mg base)/3 mL solution for nebulization 3 ml inhalation QID Qty: 180 1RF albuterol sulfate 90 mcg/actuation HFA aerosol inhaler 2 puff INHALATION Q4-6H PRN (Reason: shortness of breath or wheezing) Qty: 18 1RF PreserVision AREDS 7,160-113-100 [id number]-[id number] Tablet 2 tab PO DAILY lorazepam 0.5 mg Tablet 0.5 mg PO Q12H Qty: 14 0RF cholecalciferol (vitamin D3) [Vitamin D3] 50 mcg (2,000 unit) capsule 150 mcg PO BID Follow up/Referrals: Ariella Boo DO [Primary Care Provider, Medical] Discharge Health Status Multidrug resistant organism: No MDRO Diet/Activity/Treatments Diet: Regular Visit Report/Discharge Packet Instructions: DI for Chronic Obstructive Pulmonary Disease Stand Alone Forms: Patient Portal/API Discharge Data Primary Care Provider: Ariella Boo
--- NOTE | 2025-09-05 12:20 | CM.DPC ---
DCP Discharge Home with HH Per MD, pt medically stable to d/c home today with Resumption of [facility] and no identified barriers to discharge. TCM team was updated on pt discharge home and need for outpt f/u appointment. SW alerted [facility] on pt discharge home today and secure emailed HH orders, new F2F, d/c summary. Met bedside with pt and explained role and she confirms she remains agreeable with dc home today and states her CG Leatha aware and will provide transport and get her settled at home and will arrive around [id number] for transport. Pt confirms she wants to continue with [facility]. Pt has updated POLST signed by Dr. Tinoco and SW made copy and pt taking original home to put on her refrigerator. Medicare Message provided although pt just signed initial IMM yesterday 09/04/25. Pt preference is to d/c home today. Updated RN. Flory De La Cruz, REVOLVING FIELD ASSEMBLER
--- NOTE | 2025-09-05 15:03 | PC.NURSE ---
Patient is A&OX4, VSS, afebrile on RA. She is able to walk with FWW and SBA to BR. She is slightl SOB with activity but does not require 02. She expresses feeling much better today. MD at bedside this a.m. evaluating patient and cleared patient for discharge home today. Her log marker, arrives approximately 1330 and she is escorted via w/ch by PATIENT RESOURCE SPECIALIST with all of her personal belongings to private vehicle this afternoon at 1406.
== END 2025-09-05 14:06 | disposition home health service (06) | DRG 191 ==
LOC: ED 09:48 → AC 12:16
PROVIDERS: Admitting Provider Internal Medicine; Emergency Provider Emergency Medicine; PCP Family Medicine; Referring Provider Emergency Medicine; Visit Provider Internal Medicine
DX: J44.1 Chronic obstructive pulmonary disease with (acute) exacerbation (principal); I50.32 Chronic diastolic (congestive) heart failure; E66.01 Morbid (severe) obesity due to excess calories; J06.9 Acute upper respiratory infection, unspecified; E78.5 Hyperlipidemia, unspecified; G47.00 Insomnia, unspecified; Z68.37 Body mass index [BMI] 37.0-37.9, adult
CPT/HCPCS: 36415; 71045; 80053; 81003; 82805; 82962; 83880; 85025; 85610; 85730; 87637; 93005; 93010; 94640; 94760; 94762; 96374; 99284; J0696; J1644; J2919; J7050

== ENCOUNTER 2025-09-09 13:28 | Emergency (ER) | payer MEDICARE, OTHER, SELFPAY ==
[2025-09-03 13:15] VITALS: BMI 37.8
[2025-09-09] VITALS (9 sets, daily range): BP systolic 112–157; BP diastolic 44–83; PULSE 78–92; RESP 15–43; TEMP 36.8; O2SAT 92–94; BMI 36.0
--- NOTE | 2025-09-09 18:24 | DI.RAD.S_ITS ---
PROCEDURE: XR CHEST 1V INDICATIONS: Shortness of breath TECHNIQUE: One view of the chest was acquired. COMPARISON: [facility], CR, XR CHEST 1V, 09/03/2025, 10:03. [facility], CR, XR CHEST 1V, 08/10/2025, 14:51. FINDINGS: Surgical changes and devices: None. Lungs and pleura: Lungs are clear. No pleural effusions or pneumothorax. Mediastinum: Mediastinal contours appear normal. Heart size is normal. Bones and chest wall: No suspicious bony lesions. Overlying soft tissues appear unremarkable. IMPRESSION: No acute cardiopulmonary abnormality is seen. Dictated by: Eusebio Almendarez M.D. on 09/09/2025 at 19:41 Approved by: Eusebio Almendarez M.D. on 09/09/2025 at 19:42
--- NOTE | 2025-09-09 18:42 | ED.URI ---
HPI - URI/Sore Throat General Chief Complaint: Upper Respiratory Symptoms Stated Complaint: COPD, SOB X 3 days Time Seen by Provider: 09/09/25 14:42 Source: patient Mode of arrival: Wheelchair History of Present Illness HPI Narrative: 89-year-old female patient with a history of COPD, CHF, asthma, dyslipidemia, bipolar disorder who presents with productive cough since this morning. She started having some wheezing and shortness of breath worsening overnight. She does have a home nebulizer. No fever or chills. No chest pain. She was discharged from the hospital 6 days ago for CHF and COPD admission. Related Data Home Medications ?Medication ?Instructions ?Recorded ?Confirmed vitamins A,C,R-hfen-zdhhbm 2,148 2 tab PO DAILY 08/26/20 09/03/25 mcg-113 mg-45 mg-17.4 mg tablet (PreserVision AREDS) cholecalciferol (vitamin D3) 50 150 mcg PO BID 08/07/24 09/03/25 mcg (2,000 unit) capsule (Vitamin D3) Previous Rx's ?Medication ?Instructions ?Recorded Disabled Parking Permit #1 ea 02/21/22 meloxicam 15 mg tablet 15 mg PO DAILY #90 tabs 01/09/25 olanzapine 2.5 mg tablet 2.5 mg PO DAILY #90 tabs 01/09/25 omeprazole 20 mg capsule,delayed 20 mg PO DAILY #90 caps 01/09/25 release simvastatin 40 mg tablet 40 mg PO BEDTIME #90 tabs 01/09/25 tolterodine 4 mg capsule,extended 4 mg PO DAILY #90 caps 01/09/25 release 24 hr trazodone 50 mg tablet 25 mg (1/2 x 50 mg) PO BEDTIME PRN 01/09/25 insomnia #45 tabs albuterol sulfate 90 mcg/actuation 2 puff inhalation Q4-6H PRN 04/08/25 aerosol inhaler shortness of breath or wheezing #18 grams ipratropium 0.5 mg-albuterol 3 mg 3 ml inhalation QID #180 mL 04/08/25 (2.5 mg base)/3 mL nebulization soln sertraline 100 mg tablet See Rx Instructions .Route 04/10/25 .COMPLEX #135 tabs estradiol 0.01% (0.1 mg/gram) 0.5 g vaginal 2XW PRN UTI 04/18/25 vaginal cream prevention #42.5 grams furosemide 20 mg tablet (Lasix) 20 mg PO QAM #90 tabs 06/11/25 quetiapine 50 mg tablet 50 mg PO .COMPLEX #120 tabs 06/11/25 lorazepam 0.5 mg tablet 0.5 mg PO Q12H #14 tabs 08/15/25 prednisone 50 mg tablet 50 mg PO DAILY 2 days #2 tabs 09/09/25 Allergies Allergy/AdvReac Type Severity Reaction Status Date / Time digoxin (DIGOXIN) Allergy Mild LIGHTHEADED Verified 09/09/25 13:50 latex (LATEX) Allergy Mild Verified 09/09/25 13:50 silver Allergy Mild BLISTERS Verified 09/09/25 13:50 (FROM TEGADERM MESH) sulfamethoxazole (From Allergy Mild Rash Verified 09/09/25 13:50 Bactrim) trimethoprim (From Bactrim) Allergy Mild Rash Verified 09/09/25 13:50 cephalexin AdvReac Nausea Verified 09/09/25 13:50 fluconazole AdvReac Nausea Verified 09/09/25 13:50 Review of Systems Review of Systems ROS Unobtainable: All systems reviewed & are unremarkable except as noted in HPI and below Respiratory Respiratory: Reports as per HPI Patient History Medical History Pneumonia involving right lung (~07/2025) Asthma Acute exacerbation of chronic obstructive pulmonary disease (~07/2024) Fall Chronic prescription benzodiazepine use Pulmonary nodule less than 6 mm in diameter with low risk for malignant neoplasm (~07/2020) Peripheral neuropathy Bronchitis Abnormal LFTs Restrictive lung disease Dysphagia, pharyngeal phase Obesity (BMI 30-39.9) Urinary incontinence (2004) Foot pain, left (2009) Ankle pain, left (2009) Lumbar spinal stenosis Cataract (03/2014) Hyperlipidemia Hypothyroidism 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) Essential tremor (05/19/15) Urge incontinence of urine (05/14/15) Chronic lumbar radiculopathy (08/26/14) Chronic left shoulder pain (12/25/17) Relationship problem with family member Internal hemorrhoids (~08/2020) Feared complaint without diagnosis Allergy to sulfa drugs Tinnitus (~2014) Chicken pox Mumps (1966) Surgical History History of esophagogastroduodenoscopy (EGD) (~03/2016) Anesthesia H/O abdominal surgery (03/2007) History of vaginal surgery (~2008) History of partial knee replacement (2007) History of partial knee replacement (2003) History of hip replacement (2001) History of hip replacement (1996) Status post hysterectomy with oophorectomy (1969) Family History Father Heart disease Pulmonary embolism Grandmother Heart disease Heart attack Sister Cancer Melanoma Grandmother No problems noted. Mother Dementia Grandfather Pneumonia Grandfather Dementia Daughter Depression Social History marital status: details: 07/22/2007 number of children: 1 household members: caregiver and none lives independently: Yes housing: [facility] pets and animals: No occupational status: previously employed alcohol intake: current substance use type: does not use alcohol intake frequency: holidays/special occasions only Exam Narrative Exam Narrative: General: Alert and conversant. No distress. Appears well nourished and well hydrated Craniofacial: No evidence of trauma. Nontender and no swelling. Eyes: PERRLA EOMI conjunctiva clear HEENT: Oropharynx clear with no swelling, exudate or asymmetry of the pharynx. Nares clear. No sinus tenderness Lungs: Clear to auscultation. Mildly prolonged expiratory phase No wheezing, rales or rhonchi. No respiratory distress Cardiac: Regular rate and rhythm with no appreciable murmur or gallop Abdomen: Soft, nontender with no distention or masses. Normal bowel sounds. No rebound or guarding Musculoskeletal: Exam of the extremities, axial spine and ribcage reveals no deformity, bony tenderness or swelling. Range of motion intact Neuro: Alert and oriented. Cranial nerves, motor, sensory and cerebellar all grossly intact. No focal deficit Skin: Warm and normal color. No rashes Psychological: Normal affect and interaction. No evidence of delusion or psychosis. Normal mood. Initial Vital Signs Initial Vital Signs: Vital Signs Temperature 98.2 F 09/09/25 13:40 Pulse Rate 82 09/09/25 13:40 Respiratory Rate 22 09/09/25 13:40 Blood Pressure 123/44 L 09/09/25 13:40 Pulse Oximetry 93 09/09/25 13:40 Oxygen Delivery Method Room Air 09/09/25 13:40 Course Orders Ordered: ED Orders 09/09/25 18:24 XR chest 1V Stat EKG-12 Lead Stat Measure peak expiratory flow STAT RT Consult Eval and Treat STAT 09/09/25 18:48 Complete Blood Count AUTO DIFF Stat Comprehensive Metabolic Panel Stat Lactate (Lactic Acid) Stat NT-proBNP (BNP-Adult 18+) Stat Prothrombin Time INR Stat Troponin I Stat Discontinued Medications Prednisone (Prednisone 20 Mg Tablet) 60 mg PO NOW ONE Stop: 09/09/25 20:04 Last Admin: 09/09/25 20:09 Dose: 60 mg Documented By: QUINN Vital Signs Vital signs: Vital Signs - 8 hr 09/09/25 19:00 09/09/25 19:43 09/09/25 20:20 Pulse Rate 79 79 81 Respiratory Rate 41 H 39 H 43 H Blood Pressure 152/79 H 139/83 157/83 H Pulse Oximetry 93 93 92 Oxygen Delivery Method Room Air Room Air Room Air MDM - URI/Sore Throat Lab Data Attestation: I reviewed the patient's lab results. Lab results narrative: CBC CMP and troponin unremarkable. 09/09/25 18:48 09/09/25 18:48 Labs: Lab Results 09/09/25 Range/Units 18:48 WBC 11.2 H (4.5-11.0) X10^3/uL RBC 4.58 (4.0-5.2) X10^6/uL Hgb 13.6 (12.0-16.0) g/dL Hct 40.0 (36-46) % MCV 87.3 (80-100) fL MCH 29.8 (26-34) PG MCHC 34.1 (30-36) % RDW 15.2 H (11.6-14.8) % Plt Count 291 (150-400) X10^3/uL Neut % (Auto) 68.4 (50-75) % Lymph % (Auto) 17.1 L (25-40) % Moore % (Auto) 9.1 (3-14) % Eos % (Auto) 5.0 H (2-4) % Baso % (Auto) 0.4 (0-2) % Neut # (Auto) 7700 H (4305-9391) /uL Lymph # (Auto) 1900 (0132-0057) /uL Moore # (Auto) 1000 H (0-900) /uL Eos # (Auto) 600 H (0-450) /uL Baso # (Auto) 0 (0-100) /uL PT 11.4 (9.4-12.5) SECONDS INR 1.0 (0.9-1.3) Sodium 136 L (137-145) mmol/L Potassium 4.1 (3.4-5.1) mmol/L Chloride 100 (98-107) mmol/L Carbon Dioxide 29 (22-32) mmol/L BUN 20 H (7-17) mg/dL Creatinine 0.69 (0.52-1.04) mg/dL Estimated GFR > 60 (>60) mL/min BUN/Creatinine Ratio 29.0 H (6-22) Glucose 97 (70-99) mg/dL Lactate 0.7 (0.7-2.1) mmol/L Calcium 9.9 (8.4-10.2) mg/dL Total Bilirubin 0.5 (0.2-1.3) mg/dL AST 32 (14-36) IU/L ALT 34 (<35) IU/L Alkaline Phosphatase 67 (38-126) U/L Troponin I < 0.012 (0.01-0.034) ng/mL NT-Pro-B Natriuret Pep 63 (<450) pg/mL Total Protein 7.3 (6.3-8.2) g/dL Albumin 4.5 (3.5-5.0) g/dL Globulin 2.8 (1.7-4.1) g/dL Albumin/Globulin Ratio 1.6 (1.0-2.8) Imaging Data Chest x-ray: Attestation: I personally reviewed and interpreted this imaging study as follows: My Impression: Unremarkable. No acute cardio pulmonary disease ECG Data Attestation: I personally reviewed and interpreted this ECG as follows: (Sinus rhythm. RBBB. No ischemic changes. Rate 78) [facility] Narrative Medical decision making narrative: Patient has symptoms of a viral upper URI with negative chest x-ray and reassuring lab work. She is moving air reasonably well. This is a mild COPD exacerbation from viral upper respiratory infection. He will continue nebulizers at home and take a 3 day course of prednisone including 1 dose here. Monitor symptoms and follow up with primary care. Return to the ER if worse. Discharge Plan Departure Patient Disposition: Home Clinical Impression: Upper respiratory infection, viral, Acute exacerbation of chronic obstructive pulmonary disease Instructions: Chronic Obstructive Pulmonary Disease, DI for Viral Upper Respiratory Infection -- Adult Activity Restrictions/Additional Instructions: Plan: Hydration, rest and supportive care. Vukt-tyn-igdzgan remedies as needed. Prednisone burst for 3 days. Continue home nebulizers and inhalers. Follow up with your doctor as needed. Return to the ER if worse Prescriptions: New prednisone 50 mg tablet 50 mg PO DAILY 2 Days Qty: 2 0RF No Action (DME) Disabled Parking Permit See Rx Instructions .ROUTE .MEDSUPPLY Qty: 1 0RF Rx Instructions: Valid for 5 years sertraline 100 mg tablet See Rx Instructions .ROUTE .COMPLEX Qty: 135 0RF Dose Instruction: TAKE 1& 1/2 TABLETS(150MG) BY MOUTH DAILY Rx Instructions: TAKE 1& 1/2 TABLETS(150MG) BY MOUTH DAILY meloxicam 15 mg tablet 15 mg PO DAILY Qty: 90 1RF omeprazole 20 mg capsule,delayed release(DR/EC) 20 mg PO DAILY Qty: 90 1RF olanzapine 2.5 mg tablet 2.5 mg PO DAILY Qty: 90 1RF simvastatin 40 mg tablet 40 mg PO BEDTIME Qty: 90 3RF tolterodine 4 mg capsule,extended release 24hr 4 mg PO DAILY Qty: 90 1RF trazodone 50 mg tablet 25 mg PO BEDTIME PRN (Reason: insomnia) Qty: 45 1RF estradiol 0.01 % (0.1 mg/gram) cream 0.5 g vaginal 2XW PRN (Reason: UTI prevention) Qty: 42.5 0RF Rx Instructions: Apply thin layer periurethra quetiapine 50 mg tablet 50 mg PO .COMPLEX MDD 100mg Qty: 120 3RF Rx Instructions: 50 mg orally every night; may take an extra dose as needed for difficulty sleeping; furosemide [Lasix] 20 mg tablet 20 mg PO QAM Qty: 90 3RF ipratropium-albuterol 0.5 mg-3 mg(2.5 mg base)/3 mL solution for nebulization 3 ml inhalation QID Qty: 180 1RF albuterol sulfate 90 mcg/actuation HFA aerosol inhaler 2 puff INHALATION Q4-6H PRN (Reason: shortness of breath or wheezing) Qty: 18 1RF PreserVision AREDS 7,160-113-100 [id number]-[id number] Tablet 2 tab PO DAILY lorazepam 0.5 mg Tablet 0.5 mg PO Q12H Qty: 14 0RF cholecalciferol (vitamin D3) [Vitamin D3] 50 mcg (2,000 unit) capsule 150 mcg PO BID Referrals: Ariella Boo DO [Primary Care Provider, Medical] Stand Alone Forms: Patient Portal/API
[2025-09-09 19:02] LABS: Add Manual Diff / Slide Review NO; Hematocrit 40.0 % (36-46); Hemoglobin 13.6 g/dL (12.0-16.0); Lymphocytes Absolute Auto 1900 /uL (1100-4500); Mean Corpuscular HGB Conc 34.1 % (30-36); Mean Corpuscular Hemoglobin 29.8 PG (26-34); Mean Corpuscular Volume 87.3 fL (80-100); Platelet Count 291 X10^3/uL (150-400)
[2025-09-09 19:03] LABS: INR 1.0 (0.9-1.3); Prothrombin Time 11.4 SECONDS (9.4-12.5)
[2025-09-09 19:07] LABS: Alanine Aminotransferase 34 IU/L (<35); Albumin 4.5 g/dL (3.5-5.0); Albumin Globulin Ratio 1.6 (1.0-2.8); Alkaline Phosphatase 67 U/L (38-126); Blood Urea Nitrogen 20 mg/dL (7-17); Calcium 9.9 mg/dL (8.4-10.2); Carbon Dioxide 29 mmol/L (22-32); Chloride 100 mmol/L (98-107); Estimated Glomerular Filt Rate > 60 mL/min (>60); Globulin 2.8 g/dL (1.7-4.1); Glucose 97 mg/dL (70-99); HEMOLYSIS 26 (0-50); Lactate (Lactic Acid) 0.7 mmol/L (0.7-2.1); Potassium 4.1 mmol/L (3.4-5.1); Sodium 136 mmol/L (137-145); Total Protein 7.3 g/dL (6.3-8.2)
[2025-09-09 19:18] LABS: NT-proBNP (BNP-Adult 18+) 63 pg/mL (<450); Troponin I < 0.012 ng/mL (0.01-0.034)
--- NOTE | 2025-09-09 19:45 | PC.NURSE ---
Pt awake sitting in ED stretcher speaking with family friend and engages appropriately with RN at this time. Pt states increasing feeling of unwell over the last couple of days, thick congestion that is hard to expel. Tachypnia and mild increased WOB noted but able to speak in full sentences. Under breast skin care and powder requested by pt at this time and completed by RN as requested. Continued plan of care discussed. No further requests or concerns at this time. Pt remains connected to cardiac, resp, blood pressure, and pulse ox monitors with alarms on and audible. VS stable. Call light within reach. Purewick in place and attached to wall suction, clear yellow urine noted. Warm blankets provided. Male personal care service provider, Magan, remains at bedside.
--- NOTE | 2025-09-09 19:53 | EKG_ITS ---
[address] [address] Test Date: 2025-09-09 Pat Name: Petty [place] Department: [facility] Room: Gender: Female Manager Books: NIKKY : [id number] Requested By: Order Number: [id number] Reading MD: Zaheer Betancourt MD Measurements Intervals [place] Rate: 78 P: 25 DC: 156 QRS: -6 QRSD: 116 T: 3 QT: 418 QTc: 476 Interpretive Statements Normal sinus rhythm Right bundle branch block No Significant Change Electronically Signed On 09-21-2025 8:58:53 PST by Zaheer Betancourt MD
== END 2025-09-09 20:30 | disposition home or self-care (01) ==
PROVIDERS: Emergency Provider Emergency Medicine; PCP Family Medicine
DX: J06.9 Acute upper respiratory infection, unspecified (principal); J44.1 Chronic obstructive pulmonary disease with (acute) exacerbation
CPT/HCPCS: 36415; 71045; 80053; 83605; 83880; 84484; 85025; 85610; 93005; 93010; 99284

== ENCOUNTER 2025-11-09 13:59 | Emergency (ER) | payer MEDICARE, OTHER, SELFPAY ==
[2025-09-03 13:15] VITALS: BMI 37.8
[2025-11-09] VITALS (10 sets, daily range): BP systolic 112–143; BP diastolic 61–104; PULSE 79–93; RESP 20–49; TEMP 36.7; O2SAT 92–96; BMI 39.4
--- OUTSIDE RECORDS SUMMARY | 2025-11-09 14:19 | XMS_ITS | Encounter Summary ---
Author Organization [facility] Address [address] [place] [address] Care Team Providers Care Wirer Maintenance Name Role Phone Pcp, None Selected Primary Care Provider Unavail able Reason for Visit * Reason Onset Date Comments Appointment 08/14/2020 Encounter Details Date Type Department Care Team (Late st Contact Info) Description 08/14/2020 Telephone [facility] [place] [address] [place] [address] Rhett Mcconnell MD [address], [place] [phone] Appointment Social History Tobacco Use Types Packs/Day Years Used Date Smoking Tobacco: Never Comments Unknown Sex and Gender Information Value Date Recorded Sex Assigned at Not on file Legal Sex Female 7:47 PM PDT Gender Identity Not on file Sexual Orientation Not on file documented as of this encounter Miscellaneous Notes * Telephone Encounter - Lisa Russo - 08/14/2020 1:02 PM PDT Called patient and offered her this afternoon patient states she could not come in the times offered due to her stating it takes just over an hour to get here from [place] and she is not ready yet, I also offered patient an 820 Monday morning with patient states that is too early for her and she already has an appointment in [place] that afternoon. I asked patient if she was ok leaving the appointment scheduled for the and she stated yes that's fine, patient was very understanding and did not appear to be upset. I advised patient incase the message was not relayed the first call to please go to /ED if breathing gets worse. * Telephone Encounter - Fauzia Garcia - 08/14/2020 12:31 PM PDT Patient calling because she thought her appt was today, when in fact it was yesterday. She was really upset because she is having a hard time breathing especially with the smoke in the air and reallyneeded to get in. Called frontline to see if Dr. Coughlin would see her this afternoon as the schedule was very open, [place] came back on the phone and advised to schedule next week. Patient scheduled 08-20 documented in this encounter Plan of Treatment Upcoming Encounters Date Type Department Care Team (Late st Contact Info) Description 02/02/2026 1:00 PM PDT Office Visit [facility] [address] [phone] Mp Gallardo MD [address] [id number] documented as of this encounter Visit Diagnoses Not on filedocumented in this encounter Care Teams Wirer Maintenance Relationship Specialty Start Date End Date Pcp, None Selected PCP - General 02/27/25 documented as of this encounter
--- NOTE | 2025-11-09 14:39 | DI.RAD.S_ITS ---
PROCEDURE: XR CHEST 1V INDICATIONS: Shortness of breath TECHNIQUE: One view of the chest was acquired. COMPARISON: [facility], , XR CHEST 1V, 09/09/2025, 18:49. [facility], CR, XR CHEST 1V, 09/03/2025, 10:03. FINDINGS: Surgical changes and devices: None. Lungs and pleura: Lungs are clear. No pleural effusions or pneumothorax. Mediastinum: Mediastinal contours appear normal. Heart size is normal. Bones and chest wall: No suspicious bony lesions. Overlying soft tissues appear unremarkable. IMPRESSION: No acute cardiopulmonary abnormality is seen. Dictated by: Robert Al M.D. on 11/09/2025 at 14:17 Approved by: Robert Al M.D. on 11/09/2025 at 14:19
--- NOTE | 2025-11-09 14:39 | EKG_ITS ---
[address] [address] Test Date: 2025-11-09 Pat Name: Petty Christy Department: Room: Gender: Female Glass Beveler: LULI : 1935 Requested By: Order Number: [id number] Reading MD: Haile Vargas Measurements Intervals [place] Rate: 79 P: 19 AR: 164 QRS: -39 QRSD: 118 T: 14 QT: 410 QTc: 470 Interpretive Statements Normal sinus rhythm Left axis deviation Low voltage QRS Incomplete right bundle branch block Electronically Signed On 11-10-2025 10:40:55 PST by Haile Vargas
[2025-11-09] MEDS: ALBUTEROL/IPRATROPIUM 3 ML AMPUL INH (14:55)
--- NOTE | 2025-11-09 15:01 | ED.SOB ---
HPI - SOB/Dyspnea General Chief Complaint: Shortness of Breath/Dyspnea Stated Complaint: COPD/Rt ankle swollen Time Seen by Provider: 11/09/25 14:06 Source: patient Mode of arrival: Wheelchair History of Present Illness HPI Narrative: Patient is a 40-year-old female brought in by self for shortness of breath and swollen ankles. Past medical history significant for COPD, hypertension, hyperlipidemia, hypothyroidism. Patient states that she has been having progressive shortness of breath and swollen ankles for approximately 1 week. She took an extra dose of her Lasix yesterday and presented to the ED today to be evaluated. She denies any chest pain, diaphoresis, nausea, vomiting. No fevers or chills. No recent long transcontinental flights or car rides. No history of pulmonary embolism or deep vein thrombosis. Related Data Home Medications ?Medication ?Instructions ?Recorded ?Confirmed vitamins A,C,M-[id number] 2,148 2 tab PO DAILY 08/26/20 10/01/25 mcg-113 mg-45 mg-17.4 mg tablet (PreserVision AREDS) cholecalciferol (vitamin D3) 50 150 mcg PO BID 08/07/24 10/01/25 mcg (2,000 unit) capsule (Vitamin D3) Previous Rx's ?Medication ?Instructions ?Recorded meloxicam 15 mg tablet 15 mg PO DAILY #90 tabs 01/09/25 olanzapine 2.5 mg tablet 2.5 mg PO DAILY #90 tabs 01/09/25 omeprazole 20 mg capsule,delayed 20 mg PO DAILY #90 caps 01/09/25 release simvastatin 40 mg tablet 40 mg PO BEDTIME #90 tabs 01/09/25 trazodone 50 mg tablet 25 mg (1/2 x 50 mg) PO BEDTIME PRN 01/09/25 insomnia #45 tabs albuterol sulfate 90 mcg/actuation 2 puff inhalation Q4-6H PRN 04/08/25 aerosol inhaler shortness of breath or wheezing #18 grams estradiol 0.01% (0.1 mg/gram) 0.5 g vaginal 2XW PRN UTI 04/18/25 vaginal cream prevention #42.5 grams furosemide 20 mg tablet (Lasix) 20 mg PO QAM #90 tabs 06/11/25 quetiapine 50 mg tablet 50 mg PO .COMPLEX #120 tabs 06/11/25 budesonide-formoterol HFA 80 2 puff inhalation BID #10.2 grams 09/11/25 mcg-4.5 mcg/actuation aerosol inhaler (Symbicort) gabapentin 300 mg capsule 300 mg PO BEDTIME nerve pain in 09/11/25 both feet #180 caps tolterodine 4 mg capsule,extended 4 mg PO DAILY #90 caps 10/02/25 release 24 hr sertraline 100 mg tablet See Rx Instructions .Route 10/14/25 .COMPLEX #135 tabs Allergies Allergy/AdvReac Type Severity Reaction Status Date / Time digoxin (DIGOXIN) Allergy Mild LIGHTHEADED Verified 11/09/25 14:32 latex (LATEX) Allergy Mild Verified 11/09/25 14:32 silver Allergy Mild BLISTERS Verified 11/09/25 14:32 (FROM TEGADERM MESH) sulfamethoxazole (From Allergy Mild Rash Verified 11/09/25 14:32 Bactrim) trimethoprim (From Bactrim) Allergy Mild Rash Verified 11/09/25 14:32 cephalexin AdvReac Nausea Verified 11/09/25 14:32 fluconazole AdvReac Nausea Verified 11/09/25 14:32 Review of Systems Review of Systems Narrative: See HPI. 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) Essential tremor (05/19/15) Urge incontinence of urine (05/14/15) Chronic lumbar radiculopathy (08/26/14) Chronic left shoulder pain (12/25/17) Relationship problem with family member Internal hemorrhoids (~08/2020) Feared complaint without diagnosis Allergy to sulfa drugs Tinnitus (~2014) Chicken pox Mumps (1966) Surgical History History of esophagogastroduodenoscopy (EGD) (~03/2016) Anesthesia H/O abdominal surgery (03/2007) History of vaginal surgery (~2008) History of partial knee replacement (2007) History of partial knee replacement (2003) History of hip replacement (2001) History of hip replacement (1996) Status post hysterectomy with oophorectomy (1969) Family History Father Heart disease Pulmonary embolism Grandmother Heart disease Heart attack Sister Cancer Melanoma Grandmother No problems noted. Mother Dementia Grandfather Pneumonia Grandfather Dementia Daughter Depression Social History marital status: details: 07/22/2007 number of children: 1 household members: caregiver and none lives independently: [facility] pets and animals: No occupational status: previously employed Smoking Status: Never smoker alcohol intake: current substance use type: does not use Smoking Status: Never smoker alcohol intake frequency: holidays/special occasions only Exam Narrative Exam Narrative: Vitals:? Afebrile, all other vitals within normal range. Gen:? Well-developed, well-nourished, no acute distress Cards:? Regular, no murmurs, rubs, gallops Pulm:? No increased work of breathing, fine crackles in bilateral lower lung lobes Abd:? Soft, nondistended, nontender Ext:? Trace nonpitting edema in bilateral lower extremities Neuro:? A&O x4, cranial nerves grossly intact, in all 4 extremities spontaneously Psych:? Appropriate Initial Vital Signs Initial Vital Signs: Vital Signs Temperature 98.1 F 11/09/25 14:32 Pulse Rate 80 11/09/25 14:32 Respiratory Rate 42 H 11/09/25 14:32 Blood Pressure 135/61 11/09/25 14:32 Pulse Oximetry 94 11/09/25 14:32 Oxygen Delivery Method Room Air 11/09/25 14:32 Course Orders Ordered: ED Orders 11/09/25 17:00 EKG-12 Lead Stat Discontinued Medications Albuterol/Ipratropium (Albuterol/Ipratropium 3 Ml Ampul) 3 ml INH NOW ONE Stop: 11/09/25 14:54 Last Admin: 11/09/25 14:55 Dose: 3 ml Documented By: PATRICIA Vital Signs Vital signs: Vital Signs - 8 hr 11/09/25 16:30 11/09/25 16:30 11/09/25 17:00 Pulse Rate 83 93 H Respiratory Rate 49 H 40 H Blood Pressure 139/65 Pulse Oximetry 93 95 11/09/25 17:01 11/09/25 17:01 Pulse Rate 86 Respiratory Rate 36 H Blood Pressure 143/104 H Pulse Oximetry 96 MDM - SOB/Dyspnea Lab Data 11/09/25 15:00 11/09/25 15:00 Labs: Lab Results 11/09/25 Range/Units 15:00 WBC 6.4 (4.5-11.0) X10^3/uL RBC 4.44 (4.0-5.2) X10^6/uL Hgb 13.2 (12.0-16.0) g/dL Hct 38.6 (36-46) % MCV 87.0 (80-100) fL MCH 29.6 (26-34) PG MCHC 34.1 (30-36) % RDW 13.5 (11.6-14.8) % Plt Count 255 (150-400) X10^3/uL Neut % (Auto) 69.1 (50-75) % Lymph % (Auto) 19.1 L (25-40) % [place] % (Auto) 8.8 (3-14) % Eos % (Auto) 2.5 (2-4) % Baso % (Auto) 0.5 (0-2) % Neut # (Auto) 4500 (6894-8906) /uL Lymph # (Auto) 1200 (5380-4969) /uL [place] # (Auto) 600 (0-900) /uL Eos # (Auto) 200 (0-450) /uL Baso # (Auto) 0 (0-100) /uL PT 11.0 (9.4-12.5) SECONDS INR 1.0 (0.9-1.3) Sodium 136 L (137-145) mmol/L Potassium 4.5 (3.4-5.1) mmol/L Chloride 99 (98-107) mmol/L Carbon Dioxide 30 (22-32) mmol/L BUN 22 H (7-17) mg/dL Creatinine 0.73 (0.52-1.04) mg/dL Estimated GFR > 60 (>60) mL/min BUN/Creatinine Ratio 30.1 H (6-22) Glucose 108 H (70-99) mg/dL Lactate 1.6 (0.7-2.1) mmol/L Calcium 10.0 (8.4-10.2) mg/dL Total Bilirubin 0.4 (0.2-1.3) mg/dL AST 38 H (14-36) IU/L ALT 26 (<35) IU/L Alkaline Phosphatase 58 (38-126) U/L Troponin I < 0.012 (0.01-0.034) ng/mL NT-Pro-B Natriuret Pep 50 (<450) pg/mL Total Protein 7.1 (6.3-8.2) g/dL Albumin 4.6 (3.5-5.0) g/dL Globulin 2.5 (1.7-4.1) g/dL Albumin/Globulin Ratio 1.8 (1.0-2.8) Imaging Data Chest x-ray: Radiologist's Impression: PROCEDURE: XR CHEST 1V INDICATIONS: Shortness of breath TECHNIQUE: One view of the chest was acquired. COMPARISON: [facility], CR, XR CHEST 1V, 09/09/2025, 18:49. [facility], CR, XR CHEST 1V, 09/03/2025, 10:03. FINDINGS: Surgical changes and devices: None. Lungs and pleura: Lungs are clear. No pleural effusions or pneumothorax. Mediastinum: Mediastinal contours appear normal. Heart size is normal. Bones and chest wall: No suspicious bony lesions. Overlying soft tissues appear unremarkable. IMPRESSION: No acute cardiopulmonary abnormality is seen. MDM Narrative Medical decision making narrative: Patient is 82-year-old female with a history of COPD and hypertension presents with acute shortness of breath and bilateral lower extremity swelling. EMR Review: Briefly reviewed EMR patient has several encounters for acute COPD exacerbation and diastolic heart failure. Differential diagnosis: Acute COPD exacerbation, acute CHF exacerbation, pneumonia, URI to include COVID, influenza, other. Labs: CBC with no leukocytosis, left shift, no anemia, platelets normal. Coags normal. Lactic normal. LFTs unremarkable. Serial troponins were undetectable. Pro BNP 50. Images: Chest x-ray without any acute cardiopulmonary abnormalities. EK EKG with normal sinus rhythm, rate 79, NH 164, QT 410, QTC 470, left axis deviation, poor R-wave progression, incomplete right bundle-branch block, no evidence of ischemia. This was compared to EKG obtained on 09/03/2025 and 09/09/2025 which is largely unchanged. Consults: None. ED Course: Patient arrived to the ED tachypneic with a respiratory rate of 42, bibasilar fine crackles, up all other vitals within normal range. She did not have increased work of breathing or appear in respiratory distress however received a DuoNeb treatment in the ER with symptomatic improvement. The swelling in the ER, workup to include labs, imaging, EKG did not reveal any acute abnormalities. BNP was also normal. Given symptomatic improvement after DuoNeb treatment, patient likely had acute COPD exacerbation. She was informed to follow up with the primary care physician and discharged from the ER and improved condition. Discharge Plan Departure Patient Disposition: Home Clinical Impression: Shortness of breath Activity Restrictions/Additional Instructions: You were seen in the emergency department for shortness breath. In the ER: -- workup to include cardiac enzymes, EKG, chest x-ray was not consistent with a heart attack -- You were given a breathing treatment with improvement of your symptoms -- Your labs were not significant for fluid overload Recommend: -- You follow up with your primary care physician for continued management of your medication -- Do not eat too many cookies. -- Eat a low-salt diet Return to the ER if you develop any new or worsening symptoms to include chest pain, shortness of breath, sweatiness Prescriptions: No Action budesonide-formoterol [Symbicort] 80-4.5 mcg/actuation HFA aerosol inhaler 2 puff inhalation BID Qty: 10.2 1RF tolterodine 4 mg capsule,extended release 24hr 4 mg PO DAILY Qty: 90 1RF sertraline 100 mg tablet See Rx Instructions .ROUTE .COMPLEX Qty: 135 0RF Dose Instruction: TAKE 1& 1/2 TABLETS(150MG) BY MOUTH DAILY Rx Instructions: TAKE 1& 1/2 TABLETS(150MG) BY MOUTH DAILY meloxicam 15 mg tablet 15 mg PO DAILY Qty: 90 1RF omeprazole 20 mg capsule,delayed release(DR/EC) 20 mg PO DAILY Qty: 90 1RF olanzapine 2.5 mg tablet 2.5 mg PO DAILY Qty: 90 1RF simvastatin 40 mg tablet 40 mg PO BEDTIME Qty: 90 3RF trazodone 50 mg tablet 25 mg PO BEDTIME PRN (Reason: insomnia) Qty: 45 1RF estradiol 0.01 % (0.1 mg/gram) cream 0.5 g vaginal 2XW PRN (Reason: UTI prevention) Qty: 42.5 0RF Rx Instructions: Apply thin layer periurethra quetiapine 50 mg tablet 50 mg PO .COMPLEX MDD 100mg Qty: 120 3RF Rx Instructions: 50 mg orally every night; may take an extra dose as needed for difficulty sleeping; furosemide [Lasix] 20 mg tablet 20 mg PO QAM Qty: 90 3RF albuterol sulfate 90 mcg/actuation HFA aerosol inhaler 2 puff INHALATION Q4-6H PRN (Reason: shortness of breath or wheezing) Qty: 18 1RF gabapentin 300 mg capsule 300 mg PO BEDTIME Qty: 180 0RF Rx Instructions: If no side effects, ok to add a morning dose as well. PreserVision AREDS 7,160-113-100 [id number] Tablet 2 tab PO DAILY cholecalciferol (vitamin D3) [Vitamin D3] 50 mcg (2,000 unit) capsule 150 mcg PO BID Referrals: Ariella Boo DO [Primary Care Provider, Medical] Stand Alone Forms: Patient Portal/API
[2025-11-09 15:15] LABS: Add Manual Diff / Slide Review NO; Hematocrit 38.6 % (36-46); Hemoglobin 13.2 g/dL (12.0-16.0); Lymphocytes Absolute Auto 1200 /uL (1100-4500); Mean Corpuscular HGB Conc 34.1 % (30-36); Mean Corpuscular Hemoglobin 29.6 PG (26-34); Mean Corpuscular Volume 87.0 fL (80-100); Platelet Count 255 X10^3/uL (150-400)
[2025-11-09 15:20] LABS: INR 1.0 (0.9-1.3); Prothrombin Time 11.0 SECONDS (9.4-12.5)
--- NOTE | 2025-11-09 15:21 | PC.NURSE ---
purwick placed per pt request, neri prepped, placed with suction and secured with clean dry brief, bed low locked with call light in reach
[2025-11-09 15:26] LABS: Lactate (Lactic Acid) 1.6 mmol/L (0.7-2.1)
[2025-11-09 15:27] LABS: Alanine Aminotransferase 26 IU/L (<35); Albumin 4.6 g/dL (3.5-5.0); Albumin Globulin Ratio 1.8 (1.0-2.8); Alkaline Phosphatase 58 U/L (38-126); Blood Urea Nitrogen 22 mg/dL (7-17); Calcium 10.0 mg/dL (8.4-10.2); Carbon Dioxide 30 mmol/L (22-32); Chloride 99 mmol/L (98-107); Estimated Glomerular Filt Rate > 60 mL/min (>60); Globulin 2.5 g/dL (1.7-4.1); Glucose 108 mg/dL (70-99); Potassium 4.5 mmol/L (3.4-5.1); Sodium 136 mmol/L (137-145); Total Protein 7.1 g/dL (6.3-8.2)
[2025-11-09 15:28] LABS: HEMOLYSIS 66 (0-50)
[2025-11-09 15:39] LABS: NT-proBNP (BNP-Adult 18+) 50 pg/mL (<450); Troponin I < 0.012 ng/mL (0.01-0.034)
--- NOTE | 2025-11-09 15:51 | PC.NURSE ---
pt at home alone after caregiver left a week ago. Last 3 days she not been feeling well. She was recently discharged from the hospital with steroids related to her COPD. She noticed recent wt gain and swelling in her bilateral extremities. Her lower ankles have plus 2 pitting edema. She has become more increasingly SOB.
== END 2025-11-09 17:26 | disposition home or self-care (01) ==
PROVIDERS: Emergency Provider Student in an Organized Health Care Education/Training Program; PCP Family Medicine
DX: R06.02 Shortness of breath (principal); M79.89 Other specified soft tissue disorders; Z86.79 Personal history of other diseases of the circulatory system; Z87.09 Personal history of other diseases of the respiratory system
CPT/HCPCS: 36415; 71045; 80053; 83605; 83880; 84484; 85025; 85610; 93005; 94640; 99284